=== PATIENT | female | born 1970 | race Two or more races ===

== ENCOUNTER 2020-05-01 16:34 | Emergency (ER) | payer MEDICARE, MEDICAID, SELFPAY ==
[2020-05-01 16:39] VITALS: BP 119/91; PULSE 99; RESP 16; TEMP 37.1; O2SAT 94; BMI 35.8
[2020-05-01 19:11] VITALS: BP 120/66; PULSE 110; RESP 18; TEMP 36.8; O2SAT 99
--- NOTE | 2020-05-01 19:48 | ED_ITS ---
HPI - Female Genitourinary General Chief complaint: Urogenital-Female Stated complaint: Burning with urination Time Seen by Provider: 05/01/20 19:11 Source: patient Mode of arrival: ambulatory History of Present Illness HPI Narrative: 49-year-old female here for vaginal pain with intercourse. Patient states she usually has a dry vagina secondary to no ovaries and uses lube however now the past several days has been having intercourse with a new partner who has had herpes in the past and now has itching burning pain in her vagina. States with sex does have slight bleeding. No vaginal bleeding after sex. Denies fevers or chills denies abdominal pain states of dysuria no rash noted MD elicited complaint: dysuria Severity scale (1-10): 3 Quality of pain: sharp Consistency: constant Vaginal discharge: none Vaginal bleeding: scant Urinary symptoms: Dysuria Exacerbating factors: urination Sexual activity: Yes Patient : No Related Data Home Medications Medication Instructions Recorded Confirmed clonazepam 1 mg tablet 1 mg PO BID 04/28/20 metformin 750 mg tablet,extended 750 mg PO DAILY 04/28/20 release 24 hr Previous Rx's Medication Instructions Recorded erythromycin 5 mg/gram (0.5 %) eye 0.5 inch OPHTHALMIC (EYE) QID 10 04/28/20 ointment Days #3.5 g Allergies Allergy/AdvReac Type Severity Reaction Status Date / Time fish derived [FISH] Allergy Intermediate INFLAMMATIO Verified 05/01/20 16:44 N latex [LATEX] Allergy Mild HIVES/RASH Verified 05/01/20 16:44 aspirin Allergy Unknown rash Verified 05/01/20 16:44 Beef Containing Products Allergy Unknown DIARRHEA/VO Verified 05/01/20 16:44 MITING amoxicillin AdvReac Unknown diarrhea Verified 05/01/20 16:44 Red Meats And Seafood Allergy Unknown inflammation Uncoded 03/06/20 00:00 and swelling Seafood AdvReac Unknown DE LEON, Uncoded 03/11/20 00:00 diarrhea Review of Systems Constitutional: Comments: Constitutional : No Weight loss, No Fever, No Chills, No Night Sweats, No Fatigue, No Malaise ENT/Mouth : No Hearing loss, No Ear Pain, No Nasal Congestion, No Sinus Pain, No Hoarseness, No sore throat, No Rhinorrhea, No Swallowing Difficulty Eyes: No Eye Pain, No Swelling, No Redness, No Foreign Body, No Discharge, No Vision Changes Cardiovascular : No Chest Pain, No SOB, No Dyspnea on Exertion, No Orthopnea, No Edema, No Palpitations Respiratory : No Cough, No Sputum, No Wheezing, No Smoke Exposure, No Dyspnea Gastrointestinal : No Nausea, No Vomiting, No Diarrhea, No Constipation, No abdominal Pain, No Hematochezia, No Melena Genitourinary : mild irregular bleeding with sex, positive Dysuria, No Urinary Frequency, No Hematuria, No Urinary Incontinence, No Urgency, No Flank Pain, No Urinary Flow Changes, No Hesitancy Musculoskeletal : No joint pain, No Myalgias, No Joint Swelling Skin : No Skin Lesions, No rash Neuro : No Weakness, No Numbness, No Paresthesias, No Loss of Consciousness, No Dizziness, No Headache Psych : No Anxiety/Panic, No Depression, No SI/HI/AH/VH, No Social Issues, Heme/Lymph: No Bruising, No Bleeding,No Lymphadenopathy Endocrine : No Polyuria, No Polydipsia, No Temperature Intolerance PMFSH Past Medical History Medical History Anxiety Depression Diabetes Fibromyalgia Surgical History Hx of appendectomy Hx of section Hx of cholecystectomy Family History Family History Father Diabetes mellitus Heart murmur Mother Diabetes mellitus HTN (hypertension) Glaucoma Social History Social History Advance Directives: No Advance Directives Information Provided: No Physical Exam Vital Signs and I&O and Narrative: Vital Signs and I&O: Vital Signs Temp 98.2 F 05/01/20 19:11 Pulse 110 H 05/01/20 19:11 Resp 18 05/01/20 19:11 BP 120/66 05/01/20 19:11 Pulse Ox 99 05/01/20 19:11 Intake & Output 05/01/20 05/01/20 05/02/20 06:59 18:59 06:59 Weight 94.602 kg Body Mass Index 35.8 Const: Other: Appearance: Alert. Oriented X3. No acute distress. Eyes: Pupils equal, round and reactive to light. ENT: Pharynx normal. Neck: Normal inspection. Neck supple. No lymph nodes noted. No crepitus CVS: Normal heart rate and rhythm. Pulses normal. Normal S1 and S2 Respiratory: No respiratory distress. Breath sounds normal. No Wheezing. No rales Abdomen: Soft and nontender. No rigidity. No distention. good BS x4 Skin: Skin warm and dry. Normal skin color. Normal skin turgor. Extremities: No lower extremity edema. No lower extremity edema. No Lacerations. No Rash Neuro: Oriented X 3. No motor deficit. No sensory deficit. Moving all extermities. No slurred speech. vaginal exam: female tech at bedside for exam. Noted to have 1 genital ulcer at 12:00 o'clock position inside vaginal vault. No. No abrasions MDM - Female Genitourinary MDM Narrative Medical decision making narrative: 49-year-old female vaginal lesion possibly herpes versus abrasion. Patient states will call back in about 48-72 hours for the results of herpes culture. No UTI. Will need follow-up as well as I counseled patient to restrain from having intercourse until symptoms resolve Lab Data Labs: Lab Results 05/01/20 Range/Units 19:25 Urine Color YELLOW Urine Appearance CLEAR Urine pH 7.0 (5.0-8.0) Ur Specific [place] 1.015 (1.005-1.025) Urine Protein NEG (NEG-TRACE) MG/DL Urine Glucose (UA) NEG (NEG) MG/DL Urine Ketones NEG (NEG) MG/DL Urine Blood NEG (NEG) Urine Nitrite NEG (NEG) Ur Leukocyte Esterase TRACE H (NEG) Urine RBC 0 (0) /HPF Urine WBC 0-2 (0-4) /HPF Ur Squamous Epith Cells 2+ /LPF Urine Bacteria TRACE /LPF Discharge Plan Discharge Clinical Impression: Ulcer of vagina Patient Disposition: Home, Self-Care Additional Instructions: Thank you for visiting the emergency department today. If your symptoms worsen or do not resolve completely please return to the emergency department immediately or call 911. if he have any questions please call your primary care physician Prescriptions: No Action erythromycin 5 mg/gram (0.5 %) ointment 0.5 inch ophthalmic (eye) QID 10 Days Qty: 3.5 RF: 0 Referrals: Mali Nova MD [Primary Care Provider] - 2 days
[2020-05-01 19:55] LABS: Glucose Urine UA NEG (NEG); Leukocyte Esterase Urine TRACE (NEG); Nitrite Urine NEG (NEG); Specific Gravity - Urine 1.015 (1.005-1.025); Urine Blood NEG (NEG); Urine Ketones NEG (NEG); Urine Protein NEG (NEG-TRACE)
[2020-05-01 19:56] LABS: Appearance Urine CLEAR; Color Urine YELLOW
[2020-05-01 20:01] LABS: Bacteria Urine TRACE /LPF; RBC Urine 0 /HPF (0); Squamous Epithelial Cell Urine 2+ /LPF; WBC Urine 0-2 /HPF (0-4)
== END 2020-05-01 20:50 | disposition home or self-care (01) ==
PROVIDERS: Emergency Provider Emergency Medicine; PCP Internal Medicine
DX: N76.5 Ulceration of vagina (principal); E11.9 Type 2 diabetes mellitus without complications; I10 Essential (primary) hypertension; Z79.84 Long term (current) use of oral hypoglycemic drugs
CPT/HCPCS: 81001; 87086; 87255; 99283; 99284

== ENCOUNTER 2020-05-25 20:25 | Emergency (ER) | payer OTHER, SELFPAY ==
[2020-05-25 20:28] VITALS: BP 125/72; PULSE 112; RESP 20; TEMP 36.8; O2SAT 96; BMI 35.6
--- NOTE | 2020-05-25 21:00 | XR_ITS ---
EXAMINATION: XR CHEST CLINICAL INFORMATION: Shortness of breath. COMPARISON: Multiple priors, most recent chest radiograph dated 11/10/2019. TECHNIQUE: Frontal view of the chest was obtained. FINDINGS: The lungs are clear. The cardiomediastinal silhouette is normal in size. There is no pleural effusion or pneumothorax. No acute osseous abnormality. XR/XR chest 1V IMPRESSION: No acute cardiopulmonary findings.
[2020-05-25] MEDS: guaiFEN/Codeine SF 200/20/10ML 10 ML LIQUID PO (21:09)
[2020-05-25 21:11] VITALS: BP 146/77; PULSE 91; RESP 18; TEMP 36.8; O2SAT 96
--- NOTE | 2020-05-25 21:17 | ED.ASTHMA ---
HPI - Asthma General Chief Complaint: Asthma Stated Complaint: ASTHMA Time Seen by Provider: 05/25/20 20:59 Source: patient Mode of arrival: ambulatory Limitations: no limitations History of Present Illness HPI Narrative: patient has history of asthma been coughing for last 1 week seen her primary care doctor who prescribed doxycycline, prednisone and Tesslon patient is still coughing and having sore throat now for last 2 days patient denies any fever MD complaint: shortness of breath Onset (ago): day(s) (7) Severity: moderate Asthma History: adult onset Treatments Prior to Arrival: inhaled bronchodilator Related Data Current Asthma Therapy: inhaled bronchodilator Home Medications Medication Instructions Recorded Confirmed clonazepam 1 mg tablet 1 mg PO BID 04/28/20 05/05/20 albuterol sulfate 90 mcg/actuation INHALATION 05/05/20 05/05/20 aerosol inhaler blood sugar diagnostic #10 ea 05/05/20 05/05/20 cetirizine 10 mg tablet 10 mg PO DAILY PRN 05/05/20 05/05/20 dulaglutide 1.5 mg/0.5 mL 3 mg SUBCUT QWEEK 05/05/20 05/05/20 subcutaneous pen injector duloxetine 30 mg capsule,delayed 30 mg PO BID 05/05/20 05/05/20 release ezetimibe 10 mg tablet 10 mg PO DAILY 05/05/20 05/05/20 famotidine 40 mg tablet 40 mg PO DAILY 05/05/20 05/05/20 gabapentin 400 mg capsule 400 mg PO TID 05/05/20 05/05/20 lancets 28 gauge #100 ea 05/05/20 05/05/20 pen needle, diabetic 32 gauge x #50 ea 05/05/20 05/05/20/ ropinirole 0.5 mg tablet 0.5 mg PO BEDTIME 05/05/20 05/05/20 tizanidine 4 mg tablet 6 mg PO BEDTIME 05/05/20 05/05/20 trazodone 150 mg tablet 150 mg PO BEDTIME 05/05/20 05/05/20 Previous Rx's Medication Instructions Recorded doxycycline hyclate 100 mg tablet 100 mg PO BID #14 tab 05/05/20 prednisone 10 mg tablet See Taper PO .COMPLEX #45 tab 05/05/20 dulaglutide 1.5 mg/0.5 mL 1.5 mg SUBCUT QWEEK 90 Days #6.5 ml 05/16/20 subcutaneous pen injector metformin 750 mg tablet,extended 750 mg PO BID 90 Days #180 tab 05/16/20 release 24 hr cholecalciferol (vitamin D3) 25 25 mcg PO DAILY #30 cap 05/22/20 mcg (1,000 unit) tablet docusate sodium 100 mg capsule 100 mg PO BID #60 cap 05/22/20 albuterol sulfate [ProAir HFA] 2 puff INHALATION Q6H PRN #18 g 05/25/20 azithromycin [Zithromax] 250 mg PO DAILY 4 Days #4 tab 05/25/20 codeine-guaifenesin [Guaifenesin 10 ml PO Q6H PRN #237 ml 05/25/20 AC] Allergies Allergy/AdvReac Type Severity Reaction Status Date / Time fish derived [FISH] Allergy Intermediate INFLAMMATIO Verified 05/05/20 11:49 N latex [LATEX] Allergy Mild HIVES/RASH Verified 05/05/20 11:49 aspirin Allergy Unknown rash Verified 05/05/20 11:49 Beef Containing Products Allergy Unknown DIARRHEA/VO Verified 05/05/20 11:49 MITING amoxicillin AdvReac Unknown diarrhea Verified 05/05/20 11:49 Red Meats And Seafood Allergy Unknown inflammation Uncoded 05/05/20 11:49 and swelling Seafood AdvReac Unknown DE LEON, Uncoded 05/05/20 11:49 diarrhea Review of Systems Review of Systems: REVIEW OF SYSTEMS: Pertinent positives and negatives are stated above in the history. GEN: no fevers, chills, fatigue HEENT: no nasal congestion, sore throat, ear pain NEURO: no headache, dizziness, focal weakness PULM: dry cough+ CV: no chest pain, palpitations, LE edema ABD: no abdominal pain, nausea, vomiting, diarrhea : no dysuria, urgency, frequency SKIN: no rash ROS otherwise negative x 10 PMFSH Past Medical History Medical History Anxiety Asthma Depression Diabetes Diabetes type 2, uncontrolled Fibromyalgia Neuropathy Restless leg syndrome Vertigo Surgical History Hx of appendectomy Hx of section Hx of cholecystectomy Family History Family History Father Diabetes mellitus Heart murmur Mother Diabetes mellitus HTN (hypertension) Glaucoma Social History Social History Alcohol intake: never Smoking Status: Current every day smoker Use of substances other than those prescribed or required for medical reasons: No Advance Directives: No Physical Exam Vital Signs: Vital Signs: Vital Signs Temp Pulse Resp BP Pulse Ox 05/25/20 22:46 98 F 92 18 159/90 H 96 05/25/20 21:11 98.3 F 91 18 146/77 H 96 05/25/20 20:28 98.2 F 112 H 20 125/72 96 Body Mass Index 35.6 VITAL SIGNS: Reviewed. GENERAL: Well developed, well nourished, in no acute distress. HEAD: Normocephalic/atraumatic, EYES: PERRLA No pallor/icterus noted EARS: Ext canals without abnormality NOSE: Nares patent bilateral OROPHARYNX: Oral mucosa moist no oral lesions, Posterior pharynx erythematous without any exudate NECK: Supple, no adenopathy LUNGS: prolong expiration. No adventitious sounds or accessory muscle use CARDIOVASCULAR: Regular rate and rhythm without noted murmurs, no JVD or lower extremity edema. ABDOMEN: Soft, non-tender, non-distended with bowel sounds. No rigidity. No guarding. No palpable masses or hernias noted MUSCULOSKELETAL: No tenderness, deformities, EXTREMITIES: No cyanosis or edema. SKIN: no rashes, ulcerations, jaundice, pallor, or petechiae NEUROLOGIC: Alert and oriented x 3. Strength and sensation to light touch were grossly intact Course Course Course Narrative: patient with dry cough likely bronchitis secondary to asthma COVID is negative chest x-ray negative will give her a course of z pack, cough syrup advised to continue inhaler MDM - Asthma Lab Data Labs: Lab Results 05/25/20 Range/Units 21:09 Coronavirus (PCR) NEGATIVE (Negative) Discharge Plan Discharge Clinical Impression: Acute asthmatic bronchitis Patient Disposition: Home, Self-Care Instructions: Acute Bronchitis (ED) Prescriptions: New azithromycin [Zithromax] 250 mg tablet 250 mg PO DAILY 4 Days Qty: 4 RF: 0 codeine-guaifenesin [Guaifenesin AC] 10-100 mg/5 mL liquid 10 ml PO Q6H PRN (Reason: cough) Qty: 237 RF: 0 albuterol sulfate [ProAir HFA] 90 mcg/actuation HFA aerosol inhaler 2 puff inhalation Q6H PRN (Reason: shortness of breath or wheezing) Qty: 18 RF: 0 No Action metformin 750 mg tablet extended release 24 hr 750 mg PO BID 90 Days Qty: 180 RF: 1 Trulicity 1.5 mg/0.5 mL pen injector 1.5 mg subcut QWEEK 90 Days Qty: 6.5 RF: 1 docusate sodium [DOK] 100 mg capsule 100 mg PO BID Qty: 60 RF: 5 cholecalciferol (vitamin D3) 25 mcg (1,000 unit) tablet 25 mcg PO DAILY Qty: 30 RF: 5 clonazepam 1 mg tablet 1 mg PO BID RF: 0 tizanidine 4 mg tablet 6 mg PO BEDTIME RF: 0 Trulicity 1.5 mg/0.5 mL pen injector 3 mg subcut QWEEK RF: 0 (DME) pen needle, diabetic 32 gauge x 5/32 needle See Rx Instructions ea subcut .MEDSUPPLY Qty: 50 RF: 0 duloxetine 30 mg capsule,delayed release(DR/EC) 30 mg PO BID RF: 0 ezetimibe 10 mg tablet 10 mg PO DAILY RF: 0 ropinirole 0.5 mg tablet 0.5 mg PO BEDTIME RF: 0 gabapentin 400 mg capsule 400 mg PO TID RF: 0 cetirizine 10 mg tablet 10 mg PO DAILY PRNRF: 0 (DME) lancets 28 gauge misc See Rx Instructions ea topical QID Qty: 100 RF: 0 (DME) FreeStyle Lite Strips Strip See Rx Instructions ea Not Applicable QID Qty: 10 RF: 0 trazodone 150 mg tablet 150 mg PO BEDTIME RF: 0 albuterol sulfate 90 mcg/actuation HFA aerosol inhaler inhalation RF: 0 famotidine 40 mg tablet 40 mg PO DAILY RF: 0 doxycycline hyclate 100 mg tablet 100 mg PO BID Qty: 14 RF: 0 prednisone 10 mg tablet See Taper mg PO .COMPLEX Qty: 45 RF: 0 Interventions: ED Discharge Assessment Last Done: 05/25/20 23:10 Discharge Date/Time: 05/25/20 23:10
[2020-05-25 22:14] LABS: SARS COV2 PCR INHOUSE NEGATIVE (Negative)
[2020-05-25 22:46] VITALS: BP 159/90; PULSE 92; RESP 18; TEMP 36.6; O2SAT 96
[2020-05-25] MEDS: Albuterol Sulfate 90 MCG 8 GM INHALER 4 PUFF INHALE (22:48)
[2020-05-25] MEDS: Azithromycin 500 MG TABLET PO (22:53)
== END 2020-05-25 23:10 | disposition home or self-care (01) ==
PROVIDERS: Emergency Provider Internal Medicine; PCP Internal Medicine
DX: J20.9 Acute bronchitis, unspecified (principal); Z20.828 Contact with and (suspected) exposure to other viral communicable diseases; Z79.899 Other long term (current) drug therapy; F17.200 Nicotine dependence, unspecified, uncomplicated; Z71.6 Tobacco abuse counseling
CPT/HCPCS: 71045; 87071; 87880; 99283; 99284; U0003

== ENCOUNTER → 2020-05-28 10:04 | Outpatient (BNVA) | payer OTHER, SELFPAY | PROVIDERS: PCP Internal Medicine; Referring Provider Internal Medicine; Visit Provider Internal Medicine Endocrinology, Diabetes & Metabolism | DX: E11.65 Type 2 diabetes mellitus with hyperglycemia (principal); E66.9 Obesity, unspecified; E78.5 Hyperlipidemia, unspecified; E04.2 Nontoxic multinodular goiter; Z79.4 Long term (current) use of insulin; Z79.899 Other long term (current) drug therapy | CPT/HCPCS: 82947; 99212 ==

== ENCOUNTER 2020-05-29 09:02 | Outpatient (REF) | payer OTHER, SELFPAY ==
[2020-05-29 10:46] LABS: Alanine Aminotransferase 25 U/L (0-31); Albumin Level 4.3 g/dL (3.5-5.0); Alkaline Phosphatase 126 U/L (39-117); Anion Gap 11 (12-20); Aspartate Amino Transferase 18 U/L (5-31); Bilirubin Total 0.4 mg/dL (0.0-1.0); Blood Urea Nitrogen 5 mg/dL (9-16); Calcium 9.1 mg/dL (8.4-10.2); Carbon Dioxide 31 mmol/L (22-29); Chloride 104 mmol/L (96-108); Cholesterol 155 mg/dL; Estimated Glomerular Filt Rate > 60; Glucose Fasting 75 mg/dL (60-99); HDL Cholesterol 47 mg/dL; LDL Cholesterol Calculated 80 mg/dl; Potassium 4.4 mmol/l (3.3-5.1); Sodium 142 mmol/L (135-145); Total Protein 6.5 g/dL (6.5-8.0); Triglycerides 142 mg/dL
[2020-05-29 11:10] LABS: Creatinine Urine 65.13 mg/dL; Free T4 (Free Thyroxine) 0.89 ng/dL (0.71-1.85); Microalbum/Creatinine Ratio Ur 39.9 ug/mg cr; Thyroid Stimulating Hormone 0.99 mIU/mL (0.32-4.0)
[2020-05-29 11:16] LABS: Vitamin B12 170 pg/mL (200-900)
[2020-05-30 07:47] LABS: LDL Cholesterol Direct 85 mg/dL (<100)
== END 2020-05-29 09:03 | disposition home or self-care (01) ==
LOC: HO.LAB 09:02
PROVIDERS: Nurse Practitioner Family; PCP Internal Medicine; Visit Provider Internal Medicine Endocrinology, Diabetes & Metabolism
DX: E11.65 Type 2 diabetes mellitus with hyperglycemia (principal); R09.81 Nasal congestion; Z20.828 Contact with and (suspected) exposure to other viral communicable diseases
CPT/HCPCS: 80053; 80061; 82043; 82607; 83721; 84439; 84443; U0003

== ENCOUNTER 2020-05-30 10:54 | Outpatient (REF) | payer OTHER, SELFPAY ==
[2020-05-30 16:29] LABS: CT PCR NOT DETECTED (Not Detect.); NG PCR NOT DETECTED (Not Detect.)
[2020-06-02 09:41] LABS: BV Int Neg Control Negative (Negative); BV Int Pos Control Positive (Positive)
== END 2020-05-30 10:55 | disposition home or self-care (01) ==
LOC: HO.LAB 10:54
PROVIDERS: Visit Provider Obstetrics & Gynecology
DX: Z01.419 Encounter for gynecological examination (general) (routine) without abnormal findings (principal); E11.9 Type 2 diabetes mellitus without complications; F17.200 Nicotine dependence, unspecified, uncomplicated; J40 Bronchitis, not specified as acute or chronic; M79.7 Fibromyalgia; Z11.3 Encounter for screening for infections with a predominantly sexual mode of transmission; Z79.4 Long term (current) use of insulin
CPT/HCPCS: 87480; 87491; 87510; 87591; 87660

== ENCOUNTER 2020-06-23 12:49 | Outpatient (REF) | payer OTHER, SELFPAY | END 2020-06-23 12:50 | disposition home or self-care (01) | LOC: HO.LAB 12:49 | PROVIDERS: Visit Provider Hospitalist | DX: Z12.31 Encounter for screening mammogram for malignant neoplasm of breast (principal); R30.0 Dysuria | CPT/HCPCS: 87086 ==

== ENCOUNTER 2020-07-04 16:47 | Outpatient (REF) | payer OTHER, SELFPAY | END 2020-07-04 16:48 | disposition home or self-care (01) | LOC: HO.LAB 16:47 | PROVIDERS: Visit Provider Hospitalist | DX: Z20.828 Contact with and (suspected) exposure to other viral communicable diseases (principal) | CPT/HCPCS: U0003 ==

== ENCOUNTER 2020-07-08 09:40 | Outpatient (REF) | payer OTHER, SELFPAY ==
--- NOTE | 2020-07-08 09:43 | MM_ITS ---
EXAMINATION: MM SCREENING DIGITAL BREAST TOMOSYNTHESIS, BILATERAL CLINICAL INFORMATION: Screening. Asymptomatic. The lifetime risk of breast cancer based on the Tyrer-Cuzick Model is 6%. COMPARISON: Mammography: 12/16/2018, 11/04/2017, 08/16/2014 TECHNIQUE: Digital breast tomosynthesis is performed in both the craniocaudal and mediolateral oblique views along with computer-aided detection (CAD). Synthesized 2D images are generated from the tomosynthesis. FINDINGS: There are scattered areas of fibroglandular density (ACR BI-RADS breast composition Category b). There are no significant masses, abnormal calcifications, or other abnormalities. The axilla and skin contours are unremarkable. MM/MM tomosynthesis screening BI IMPRESSION: No mammographic evidence of malignancy. ASSESSMENT: BI-RADS 1: Negative RECOMMENDATION: Routine annual mammography screening. This patient's information was entered into a reminder system with a target due date for their next mammogram.
== END 2020-07-08 09:41 | disposition home or self-care (01) ==
LOC: HO.MAMMO 09:40
PROVIDERS: PCP Internal Medicine; Visit Provider Obstetrics & Gynecology
DX: Z12.31 Encounter for screening mammogram for malignant neoplasm of breast (principal)
CPT/HCPCS: 77063; 77067

== ENCOUNTER 2020-11-21 18:19 | Emergency (ER) | payer OTHER, SELFPAY ==
--- NOTE | ~2020-11-21 | CT_ITS ---
EXAMINATION: CT ABDOMEN AND PELVIS WITHOUT CONTRAST CLINICAL INFORMATION: Right-sided flank pain COMPARISON: CT scan abdomen pelvis 11/10/2019 TECHNIQUE: Multidetector volumetric imaging was performed from the superior aspect of the liver through the pubic symphysis. Sagittal and coronal reformatted images were obtained on the technologist's workstation. This CT examination was performed using dose optimization techniques as appropriate, variously including the following: *Automated exposure control *Adjustment of mA and/or kV according to patient size (this includes techniques or standardized protocols for targeted exams where dose is matched to indication/reason for exam; i.e. extremities or head) *Use of iterative reconstruction technique DLP: 824 mGy-cm FINDINGS: LUNG BASES: The visualized lung bases are unremarkable. LIVER, GALLBLADDER, AND BILIARY TREE: The liver is normal in size, shape, and attenuation. No focal hepatic lesion or biliary ductal dilatation is present. Status post cholecystectomy PANCREAS: Unremarkable. SPLEEN: Unremarkable. ADRENAL GLANDS: Unremarkable. KIDNEYS AND URETERS: The kidneys are normal in size, shape, and attenuation. No hydronephrosis, hydroureter, or calculi seen. No perinephric stranding. BLADDER: Unremarkable. GASTROINTESTINAL TRACT: No acute change of bowel. Cecum lies on a long mesentery and is looped up into the left midabdomen. There is no cecal volvulus. There is no mesenteric twist. There are scattered diverticula throughout the colon. There is no diverticulitis. There is no bowel wall thickening /edema. There is no bowel obstruction. There is a large volume of stool in the colon. The appendix is nonvisualized . There is fecal material in the distal small bowel loops which can be due to slow transit versus an incompetent ileocecal valve. The stomach is normal. There is no hiatal hernia. ABDOMINAL WALL: No significant hernia is appreciated. LYMPH NODES: Normal. VASCULAR: Unremarkable. PELVIC VISCERA: Uterus is anteverted. Calcified fibroids in the uterus. There is no adnexal abnormality. OSSEOUS STRUCTURES: Unremarkable. CT/CT abdomen pelvis wo con IMPRESSION: No acute abnormality CT scan abdomen and pelvis.
[2020-11-21 19:42] VITALS: BP 137/65; PULSE 95; RESP 18; TEMP 36.9; O2SAT 95; BMI 36.7
[2020-11-21 21:06] LABS: MANUAL DIFF FLAG NO
[2020-11-21 21:14] LABS: Basophils Absolute Auto 0.1 X10*3/uL (0.0-0.2); Basophils Percent Auto 0.6 % (0-2); Eosinophils Absolute Auto 0.1 X10*3/uL (0.0-0.4); Eosinophils Percent Auto 1.3 % (0-4); Hematocrit 43.5 % (37-47); Hemoglobin 14.8 g/dl (12.0-16.0); Imm Gran Abs Auto 0.02 X10*3/uL (0.00-0.03); Imm Gran Pct Auto 0.2 % (0.0-0.4); Lymphocytes Percent Auto 38.4 % (20-40); Mean Platelet Volume 9.8 fL (9.4-12.3); Monocytes Absolute Auto 0.7 X10*3/uL (0.1-1.2); Monocytes Percent Auto 6.4 % (2-11); Neutrophils Absolute Auto 5.5 X10*3/uL (2.0-8.3); Neutrophils Percent Auto 53.1 % (45-73); Platelet Count 299 X10*3/uL (160-400); Red Blood Count 4.78 X10*6/uL (4.20-5.50); Red Cell Distribution Width 12.2 % (11.0-16.0); White Blood Count 10.4 X10*3/uL (4.8-10.8)
[2020-11-21 21:15] LABS: Glucose Urine UA NEG (NEG); Leukocyte Esterase Urine NEG (NEG); Nitrite Urine NEG (NEG); PH 8.5 (5.0-8.0); Specific Gravity - Urine 1.015 (1.005-1.025); Urine Blood NEG (NEG); Urine Ketones NEG (NEG); Urine Protein TRACE MG/DL (NEG-TRACE)
[2020-11-21 21:18] LABS: Appearance Urine HAZY; Color Urine YELLOW
[2020-11-21 21:32] LABS: Alanine Aminotransferase 27 U/L (0-31); Albumin Level 4.6 g/dL (3.5-5.0); Alkaline Phosphatase 144 U/L (39-117); Anion Gap 15 (12-20); Aspartate Amino Transferase 22 U/L (5-31); Bilirubin Total 0.5 mg/dL (0.0-1.0); Blood Urea Nitrogen 13 mg/dL (9-16); Calcium 9.7 mg/dL (8.4-10.2); Carbon Dioxide 29 mmol/L (22-29); Chloride 101 mmol/L (96-108); Creatinine Clr Calc Pharmacy 92.8; Estimated Glomerular Filt Rate > 60; Glucose Random 102 mg/dL (60-115); Lipase 28 U/L (8-78); Potassium 4.3 mmol/L (3.3-5.1); Sodium 141 mmol/L (135-145)
[2020-11-21] MEDS: HYDROcodone Bit/Acetam 5/325 TABLET 1 TAB PO (23:13)
[2020-11-21] MEDS: Ibuprofen 600 MG TABLET PO (23:13)
--- NOTE | 2020-11-21 23:24 | ED.ABDPAIN ---
HPI - Abdominal Pain General Chief Complaint: Abdominal Pain Stated Complaint: low back pain Time Seen by Provider: 11/21/20 22:03 Source: patient Mode of arrival: ambulatory Limitations: no limitations History of Present Illness HPI narrative: 50 y/o female with history of fibromyalgia, DM2 on insulin, depression, restless leg syndrome, kidney stones, GERD presents to the ER with 4 days of right sided flank pain. She states the pain was gradual but is now constant. She reports increased urinary frequency but admits to drinking a lot of water to help with her diabetes. She denies fever, chills, N/V/D, hematuria or dysuria. She states the pain radiates from her right flank around to her right inguinal area. It is worse with movement and when she touches it. MD elicited complaint: flank pain Pertinent past history: kidney stones Onset (ago): day(s) (4) Pain Consistency: constant Location: R flank Severity: moderate Quality: stabbing and aching Radiation: RLQ Migration to: no migration Exacerbating factors: movement Relieving factors: nothing Associated symptoms: nausea Related Data Home Medications Medication Instructions Recorded Confirmed clonazepam 1 mg tablet 1 mg PO BID 04/28/20 10/06/20 albuterol sulfate 90 mcg/actuation INHALATION 05/05/20 10/06/20 aerosol inhaler duloxetine 30 mg capsule,delayed 30 mg PO BID 05/05/20 10/06/20 release gabapentin 400 mg capsule 400 mg PO TID 05/05/20 10/06/20 pen needle, diabetic 32 gauge x #50 ea 05/05/20 10/06/20 tizanidine 4 mg tablet 6 mg PO BEDTIME 05/05/20 10/06/20 trazodone 150 mg tablet 150 mg PO BEDTIME 05/05/20 10/06/20 flu vac [id number] 36mos up(PF) ml IM 06/05/20 10/06/20 ibuprofen 800 mg tablet 800 mg PO BID 06/05/20 10/06/20 ipratropium 0.5 mg-albuterol 3 mg 3 ml INHALATION Q6H PRN 06/05/20 10/06/20 (2.5 mg base)/3 mL nebulization soln ondansetron 4 mg disintegrating 4 mg PO Q8H PRN 06/05/20 10/06/20 tablet Previous Rx's Medication Instructions Recorded albuterol sulfate [ProAir HFA] 2 puff INHALATION Q6H PRN #18 g 05/25/20 insulin degludec 100 unit/mL (3 18 unit SUBCUT BEDTIME 90 Days #30 05/28/20 mL) subcutaneous pen ml nicotine 21 mg/24 hr daily 1 patch TRANSDERMAL DAILY #28 ea 05/30/20 transdermal patch loperamide 2 mg tablet 2 mg PO DAILY PRN #20 tab 06/05/20 fluticasone propionate 50 1 spray INTRANASAL DAILY #16 cap 06/20/20 mcg/actuation nasal spray,suspension fluconazole 150 mg tablet 150 mg PO DAILY 3 Days #3 tab 06/23/20 valacyclovir 1 gram tablet 1,000 mg PO TID 10 Days #30 tab 06/23/20 pen needle, diabetic 32 gauge x #50 ea 06/24/20 dulaglutide 1.5 mg/0.5 mL 1.5 mg SUBCUT QWEEK 90 Days #6.5 ml 08/19/20 subcutaneous pen injector blood sugar diagnostic #300 ea 09/24/20 lancets 28 gauge #300 ea 09/24/20 mirabegron 25 mg tablet,extended 25 mg PO DAILY #30 tab 10/06/20 release 24 hr ezetimibe 10 mg tablet 10 mg PO DAILY #90 cap 10/20/20 metformin 750 mg tablet,extended 750 mg PO BID 90 Days #180 tab 10/21/20 release 24 hr cetirizine 10 mg tablet 10 mg PO DAILY PRN #90 cap 11/20/20 cholecalciferol (vitamin D3) 25 25 mcg PO DAILY #30 cap 11/20/20 mcg (1,000 unit) tablet cyanocobalamin (vitamin B-12) 500 500 mcg SUBLINGUAL DAILY #30 cap 11/20/20 mcg disintegrating tablet,sublingual famotidine 40 mg tablet 40 mg PO DAILY #30 cap 11/20/20 ropinirole 0.5 mg tablet 0.5 mg PO BEDTIME #90 cap 11/20/20 cyclobenzaprine 10 mg PO TID PRN #10 tab 11/21/20 docusate sodium 100 mg capsule 100 mg PO BID #60 cap 11/21/20 ibuprofen 600 mg PO Q8H PRN #14 tab 04/30/21 lidocaine [Lidoderm] 1 patch TOPICAL DAILY #15 ea 11/21/20 Allergies Allergy/AdvReac Type Severity Reaction Status Date / Time latex [LATEX] Allergy Mild HIVES/RASH Verified 11/21/20 19:42 aspirin Allergy Unknown rash Verified 11/21/20 19:42 amoxicillin AdvReac Unknown diarrhea Verified 11/21/20 19:42 Beef Containing Products AdvReac Unknown DIARRHEA/VO Verified 11/21/20 19:42 MITING [employer] Allergy Unknown inflammation Uncoded 07/04/20 16:38 and swelling Review of Systems Review of Systems Constitutional: No Fever, No Chills ENT/Mouth: No sore throat, No Rhinorrhea, No Swallowing Difficulty Cardiovascular: No Chest Pain, No SOB, No Orthopnea, No Edema Respiratory: No Cough, No Sputum, No Wheezing, No dyspnea Gastrointestinal: + Nausea, No Vomiting, No Diarrhea, No abdominal Pain, No Hematochezia, No Melena Genitourinary: No Dysuria, + Urinary Frequency, No Hematuria Musculoskeletal: No joint pain, No Myalgias Skin: No Skin Lesions, No rash Neuro: No Weakness, No Numbness, No Dizziness, + Headache Psych: No Anxiety/Panic, No Depression Heme/Lymph: No Bruising, No Lymphadenopathy Endocrine: + Polyuria, + Polydipsia Physical Exam Vital Signs: Vital Signs: Last Vital Signs Temp 98.5 F 11/21/20 19:42 Pulse 95 11/21/20 19:42 Resp 18 11/21/20 19:42 BP 137/65 11/21/20 19:42 Pulse Ox 95 11/21/20 19:42 Body Mass Index 36.7 Appearance: Alert. Oriented X3. No acute distress. Eyes: Pupils equal, round and reactive to light. ENT: Pharynx normal. Neck: Normal inspection. Neck supple. CVS: Normal heart rate and rhythm. Pulses normal. Respiratory: No respiratory distress. Breath sounds normal. Abdomen: Obese, Soft with mild RLQ tennderness, no rebound or guarding. +BS x4, +CVA tenderness on the right. Skin: Skin warm and dry. Normal skin color. Normal skin turgor. No rashes. Extremities: No lower extremity edema. Neuro: Oriented X 3. No motor deficit. No sensory deficit. Course Course Course Narrative: 50 yo female presenting with right sided flank pain x4 days. Tender to touch. Concern for possible kidney stone vs pyelonephritis vs muscular pain. Will get UA, labs and CT scan for futher assessment. Reevaluation(s) Reevaluation #1: UA is unremarkable. Labs are normal. CT scan only showing large stool burden. Results d/w patient. Will treat for MSK back pain and have her follow up with PCP next week. Stable for discharge. MDM - Abdominal Pain Lab Data Result diagrams: 11/21/20 21:11/21/20 21:01 Labs: Lab Results 11/21/20 11/21/20 11/21/20 Range/Units 21:01 21: 21:01 WBC 10.4 (4.8-10.8) X10*3/uL RBC 4.78 (4.20-5.50) X10*6/uL Hgb 14.8 (12.0-16.0) g/dl Hct 43.5 (37-47) % MCV 91.0 (80-98) fL MCH 31.0 (27.0-33.0) pg MCHC 34.0 (31.0-35.0) g/dl RDW 12.2 (11.0-16.0) % Plt Count 299 (160-400) X10*3/uL MPV 9.8 (9.4-12.3) fL Immature Gran % (Auto) 0.2 (0.0-0.4) % Neut % (Auto) 53.1 (45-73) % Lymph % (Auto) 38.4 (20-40) % Adams % (Auto) 6.4 (2-11) % Eos % (Auto) 1.3 (0-4) % Baso % (Auto) 0.6 (0-2) % Lymph # (Auto) 4.0 (1.2-4.9) X10*3/uL Adams # (Auto) 0.7 (0.1-1.2) X10*3/uL Eos # (Auto) 0.1 (0.0-0.4) X10*3/uL Baso # (Auto) 0.1 (0.0-0.2) X10*3/uL Abs Immat Gran (auto) 0.02 (0.00-0.03) X10*3/uL Absolute Neuts (auto) 5.5 (2.0-8.3) X10*3/uL Absolute Nucleated RBC 0.000 (0.0-0.012) X10*3/uL Nucleated RBC % (auto) 0.0 (0.0-0.2) /100WBC Hold Blue Top SEE NOTE Sodium 141 (135-145) mmol/L Potassium 4.3 (3.3-5.1) mmol/L Chloride 101 (96-108) mmol/L Carbon Dioxide 29 (22-29) mmol/L Anion Gap 15 (12-20) BUN 13 D (9-16) mg/dL Creatinine 0.82 (0.5-1.4) mg/dL Estim Creat Clear Calc 92.8 Estimated GFR > 60 Random Glucose 102 (60-115) mg/dL Calcium 9.7 D (8.4-10.2) mg/dL Total Bilirubin 0.5 (0.0-1.0) mg/dL AST 22 (5-31) U/L ALT 27 (0-31) U/L Alkaline Phosphatase 144 H (39-117) U/L Total Protein 7.0 (6.5-8.0) g/dL Albumin 4.6 (3.5-5.0) g/dL Lipase 28 (8-78) U/L Urine Color Urine Appearance Urine pH (5.0-8.0) Ur Specific Conklin (1.005-1.025) Urine Protein (NEG-TRACE) MG/DL Urine Glucose (UA) (NEG) MG/DL Urine Ketones (NEG) MG/DL Urine Blood (NEG) Urine Nitrite (NEG) Ur Leukocyte Esterase (NEG) 11/21/20 Range/Units 21:01 WBC (4.8-10.8) X10*3/uL RBC (4.20-5.50) X10*6/uL Hgb (12.0-16.0) g/dl Hct (37-47) % MCV (80-98) fL MCH (27.0-33.0) pg MCHC (31.0-35.0) g/dl RDW (11.0-16.0) % Plt Count (160-400) X10*3/uL MPV (9.4-12.3) fL Immature Gran % (Auto) (0.0-0.4) % Neut % (Auto) (45-73) % Lymph % (Auto) (20-40) % Adams % (Auto) (2-11) % Eos % (Auto) (0-4) % Baso % (Auto) (0-2) % Lymph # (Auto) (1.2-4.9) X10*3/uL Adams # (Auto) (0.1-1.2) X10*3/uL Eos # (Auto) (0.0-0.4) X10*3/uL Baso # (Auto) (0.0-0.2) X10*3/uL Abs Immat Gran (auto) (0.00-0.03) X10*3/uL Absolute Neuts (auto) (2.0-8.3) X10*3/uL Absolute Nucleated RBC (0.0-0.012) X10*3/uL Nucleated RBC % (auto) (0.0-0.2) /100WBC Hold Blue Top Sodium (135-145) mmol/L Potassium (3.3-5.1) mmol/L Chloride (96-108) mmol/L Carbon Dioxide (22-29) mmol/L Anion Gap (12-20) BUN (9-16) mg/dL Creatinine (0.5-1.4) mg/dL Estim Creat Clear Calc Estimated GFR Random Glucose (60-115) mg/dL Calcium (8.4-10.2) mg/dL Total Bilirubin (0.0-1.0) mg/dL AST (5-31) U/L ALT (0-31) U/L Alkaline Phosphatase (39-117) U/L Total Protein (6.5-8.0) g/dL Albumin (3.5-5.0) g/dL Lipase (8-78) U/L Urine Color YELLOW Urine Appearance HAZY Urine pH 8.5 H (5.0-8.0) Ur Specific Conklin 1.015 (1.005-1.025) Urine Protein TRACE (NEG-TRACE) MG/DL Urine Glucose (UA) NEG (NEG) MG/DL Urine Ketones NEG (NEG) MG/DL Urine Blood NEG (NEG) Urine Nitrite NEG (NEG) Ur Leukocyte Esterase NEG (NEG) Critical Care Time Critical Care Time Critical Care Time: No Discharge Plan Discharge Clinical Impression: Constipation Qualifiers: Constipation type: unspecified constipation type Qualified Code(s): K59.00 - Constipation, unspecified Back pain Qualifiers: Back pain location: thoracic back pain Chronicity: acute Back pain laterality: right Qualified Code(s): M54.6 - Pain in thoracic spine Patient Disposition: Home, Self-Care Instructions: Constipation (ED), Flank Pain (ED) Additional Instructions: Your lab workup today was unremarkable. Your urine test did not show any signs of infection. Your CT scan showed a large amount of stool in your colon. Recommend starting Miralax 17 grams once per day. Your back pain may be muscular in nature. No bending, lifting or twisting. Use ice several times per day for 20 minutes at a time for the next 48 hours and then change to heat. Take medications as prescribed to help with pain and discomfort. Follow up with your Primary Care Doctor this week. If your pain worsens or if you have any new or concerning symptoms come back to the ER for further evaluation. Prescriptions: New cyclobenzaprine 10 mg tablet 10 mg PO TID PRN (Reason: muscle spasm) Qty: 10 RF: 0 ibuprofen 600 mg tablet 600 mg PO Q8H PRN (Reason: pain) Qty: 14 RF: 0 lidocaine [Lidoderm] 5 % adhesive patch,medicated 1 patch topical DAILY Qty: 15 RF: 0 No Action fluticasone propionate 50 mcg/actuation spray,suspension 1 spray intranasal DAILY Qty: 16 RF: 6 (DME) pen needle, diabetic [BD Vanessa 2nd Gen Pen Needle] 32 gauge x 5/32 needle See Rx Instructions .MEDSUPPLY Qty: 50 RF: 4 Trulicity 1.5 mg/0.5 mL pen injector 1.5 mg subcut QWEEK 90 Days Qty: 6.5 RF: 1 (DME) blood sugar diagnostic Strip See Rx Instructions ea Not Applicable QID Qty: 300 RF: 3 (DME) lancets 28 gauge misc See Rx Instructions ea topical QID Qty: 300 RF: 3 ezetimibe 10 mg tablet 10 mg PO DAILY Qty: 90 RF: 2 metformin 750 mg tablet extended release 24 hr 750 mg PO BID 90 Days Qty: 180 RF: 1 cyanocobalamin (vitamin B-12) 500 mcg tablet,disintegrating 500 mcg sublingual DAILY Qty: 30 RF: 11 cetirizine 10 mg tablet 10 mg PO DAILY PRN (Reason: for allergies) Qty: 90 RF: 0 cholecalciferol (vitamin D3) 25 mcg (1,000 unit) tablet 25 mcg PO DAILY Qty: 30 RF: 5 famotidine 40 mg tablet 40 mg PO DAILY Qty: 30 RF: 6 ropinirole 0.5 mg tablet 0.5 mg PO BEDTIME Qty: 90 RF: 0 docusate sodium [Stool Softener] 100 mg capsule 100 mg PO BID Qty: 60 RF: 5 albuterol sulfate [ProAir HFA] 90 mcg/actuation HFA aerosol inhaler 2 puff inhalation Q6H PRN (Reason: shortness of breath or wheezing) Qty: 18 RF: 0 clonazepam 1 mg tablet 1 mg PO BID RF: 0 fluconazole 150 mg tablet 150 mg PO DAILY 3 Days Qty: 3 RF: 0 valacyclovir [Valtrex] 1 gram tablet 1,000 mg PO TID 10 Days Qty: 30 RF: 0 Myrbetriq 25 mg tablet extended release 24 hr 25 mg PO DAILY Qty: 30 RF: 0 Afluria Qd 2019-(3yr up)(PF) 60 mcg (15 mcg x 4)/0.5 mL syringe IM RF: 0 ibuprofen 800 mg tablet 800 mg PO BID RF: 0 ipratropium-albuterol 0.5 mg-3 mg(2.5 mg base)/3 mL solution for nebulization 3 ml inhalation Q6H PRN (Reason: muscle spasm) RF: 0 ondansetron 4 mg tablet,disintegrating 4 mg PO Q8H PRN (Reason: nausea/vomiting) RF: 0 loperamide 2 mg tablet 2 mg PO DAILY PRN (Reason: loose stool) Qty: 20 RF: 0 tizanidine 4 mg tablet 6 mg PO BEDTIME RF: 0 (DME) pen needle, diabetic 32 gauge x /32 needle See Rx Instructions ea subcut .MEDSUPPLY Qty: 50 RF: 0 duloxetine 30 mg capsule,delayed release(DR/EC) 30 mg PO BID RF: 0 gabapentin 400 mg capsule 400 mg PO TID RF: 0 trazodone 150 mg tablet 150 mg PO BEDTIME RF: 0 albuterol sulfate 90 mcg/actuation HFA aerosol inhaler inhalation RF: 0 nicotine 21 mg/24 hr patch 24 hour 1 patch transdermal DAILY Qty: 28 RF: 3 Tresiba FlexTouch U-100 100 unit/mL (3 mL) insulin pen 18 unit subcut BEDTIME 90 Days Qty: 30 RF: 1 Referrals: Mali Nova MD [Primary Care Provider] - 2 days Interventions: ED Discharge Assessment Last Done: 11/22/20 00:09 Discharge Date/Time: 11/22/20 00:11 [facility] Past Medical History Attestation statement: The following information was validated with the patient. 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 Mixed stress and urge incontinence Neuropathy Non-toxic multinodular goiter Obesity (BMI 30-39.9) Restless leg syndrome Type 2 diabetes mellitus with microalbuminuria, with long-term current use of insulin Vertigo Surgical History History of bilateral oophorectomy History of hysterectomy Hx of appendectomy Hx of section Hx of cholecystectomy Family History Family History Father Diabetes mellitus Heart murmur Mother Diabetes mellitus HTN (hypertension) Glaucoma Social History Social History Alcohol intake: never Smoking Status: Former smoker Advance Directives: No Advance Directives Information Provided: Yes Sexual orientation: Straight/Heterosexual Gender identity: female
== END 2020-11-22 00:11 | disposition home or self-care (01) ==
PROVIDERS: Emergency Provider Internal Medicine; PCP Internal Medicine
DX: K59.00 Constipation, unspecified (principal); M54.6 Pain in thoracic spine; R10.9 Unspecified abdominal pain; E11.9 Type 2 diabetes mellitus without complications; E78.5 Hyperlipidemia, unspecified; Z79.4 Long term (current) use of insulin
CPT/HCPCS: 36415; 74176; 80053; 81003; 83690; 85025; 99283; 99284

== ENCOUNTER → 2020-12-02 08:23 | Outpatient (BNVA) | payer OTHER, SELFPAY | PROVIDERS: PCP Internal Medicine; Visit Provider Student in an Organized Health Care Education/Training Program | DX: M79.7 Fibromyalgia (principal) | CPT/HCPCS: 99212 ==

== ENCOUNTER → 2020-12-24 10:58 | Outpatient (BNVA) | payer OTHER, SELFPAY | PROVIDERS: PCP Internal Medicine; Visit Provider Internal Medicine Endocrinology, Diabetes & Metabolism | DX: E11.65 Type 2 diabetes mellitus with hyperglycemia (principal); E66.9 Obesity, unspecified; E78.5 Hyperlipidemia, unspecified; E04.2 Nontoxic multinodular goiter; Z79.4 Long term (current) use of insulin | CPT/HCPCS: 82947; 99212 ==

== ENCOUNTER 2021-01-12 08:34 | Outpatient (REF) | payer OTHER, SELFPAY ==
--- NOTE | ~2021-01-12 | US_ITS ---
EXAMINATION: US THYROID CLINICAL INFORMATION: Nontoxic multinodular goiter. COMPARISON: Ultrasound soft tissue head/neck thyroid dated 12/08/2017 and 09/21/2016. TECHNIQUE: Linear transducer grayscale and color Doppler examination with attention to the region of the thyroid. FINDINGS: SIZE: Measurements of the solitary right thyroid lobe and nodules are given in sagittal, anteroposterior and transverse dimensions respectively. Right Thyroid Lobe: 4.1 x 2.2 x 1.7 cm, volume 8.0 mL. Previously 5.1 x 1.9 x 1.8 cm, volume 9.1 mL. Parenchyma: The gland echotexture is homogeneous. Thyroid vascularity is normal. Left Thyroid Lobe: Surgically absent. Isthmus: 0.5 cm in maximum AP dimension. Previously 0.3 cm. Estimated total number of nodules greater than or equal to 1 cm: 0. 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 Location: Right superior/mid. Size: 0.33 x 0.26 x 0.32 cm, volume 0.14 mL. Previously: 0.24 x 0.21 x 0.16 cm, volume 0.004 mL. Nodule characteristics: Composition: Solid (2). Echogenicity: Hypoechoic (2). Shape: Not taller than wide (0). Margins: Smooth (0). Echogenic Foci: None (0). ACR TI-RADS total points: 4 ACR TI-RADS category: 4 Significant change in size (>/= 20% in 2 dimensions and minimal increase of 2 mm or 50% or greater increase in volume): Yes Change in features: No Change in ACR TI-RADS risk category: No 2. Location: Right mid. Size: 0.39 x 0.24 x 0.41 cm, volume 0.20 mL. Previously: 0.28 x 0.21 x 0.28 cm, volume 0.009 mL. Nodule characteristics: Composition: Cystic(0). ACR TI-RADS total points: 0 ACR TI-RADS category: 1 Significant change in size (>/= 20% in 2 dimensions and minimal increase of 2 mm or 50% or greater increase in volume): Yes Change in features: No Change in ACR TI-RADS risk category: No No residual left thyroid tissue or nodule. NODES: No lymphadenopathy is seen in the tissue surrounding the thyroid gland. US/US thyroid IMPRESSION: Interval increase in size in small right thyroid nodules compared to 2018. These do not meet TI RADS ultrasound criteria for fine-needle aspiration for follow-up. ACR TI-RADS RECOMMENDATION REFERENCE: Ultrasound-guided fine-needle aspiration, followup ultrasound, no further follow up. * TR1 (0 point) and TR 2 (2 points): No FNA or follow up * TR3 (3 points): FNA if more than or equal to 2.5 cm in maximum dimension, followup ultrasound in 1, 3 and 5 years if 1.5 to 2.4 cm in maximum dimension. * TR4 (4-6 points): FNA if more than or equal to 1.5 cm in maximum dimension, followup ultrasound in 1, 2, 3 and 5 years if 1 to 1.4 cm in maximum dimension. * TR5 (more than or equal to 7 points): FNA if more than or equal to 1 cm in maximum dimension, followup ultrasound every year for 5 years if 0.5 to 0.9 cm in maximum dimension. * TR3, TR4 or TR5 nodules that are below the size threshold for follow up receive no follow up.
== END 2021-01-12 08:35 | disposition home or self-care (01) ==
LOC: HO.US 08:34
PROVIDERS: Visit Provider Internal Medicine Endocrinology, Diabetes & Metabolism
DX: E04.2 Nontoxic multinodular goiter (principal)
CPT/HCPCS: 76536

== ENCOUNTER 2021-04-10 12:14 | Outpatient (REF) | payer OTHER, SELFPAY ==
--- NOTE | ~2021-04-10 | XR_ITS ---
EXAMINATION: XR ELBOW, RIGHT CLINICAL INFORMATION: Pain in right elbow COMPARISON: None TECHNIQUE: AP, lateral, and oblique views of the right elbow. FINDINGS: No acute visible fracture or dislocation. Joint spaces and alignment are maintained. No large elbow joint effusion. Soft tissues are unremarkable. XR/XR elbow RT min 3V IMPRESSION: No acute visible fracture or dislocation.
[2021-04-10 15:03] LABS: Vitamin B12 1021 pg/mL (200-900)
[2021-04-10 15:19] LABS: Alanine Aminotransferase 31 U/L (0-31); Anion Gap 13 (12-20); Aspartate Amino Transferase 30 U/L (5-31); Blood Urea Nitrogen 10 mg/dL (9-16); Calcium 10.1 mg/dL (8.4-10.2); Carbon Dioxide 28 mmol/L (22-29); Chloride 103 mmol/L (96-108); Cholesterol 153 mg/dL; Estimated Glomerular Filt Rate > 60; Glucose Fasting 80 mg/dL (60-99); HDL Cholesterol 37 mg/dL; LDL Cholesterol Calculated 68 mg/dl; Potassium 4.6 mmol/L (3.3-5.1); Sodium 139 mmol/L (135-145); Triglycerides 240 mg/dL
[2021-04-10 15:41] LABS: Free T4 (Free Thyroxine) 0.94 ng/dL (0.71-1.85)
[2021-04-11 07:45] LABS: Estimated Average Glucose 111 mg/dL; Hemoglobin A1c % 5.5 %
== END 2021-04-10 12:15 | disposition home or self-care (01) ==
LOC: HO.HMGCX 12:14
PROVIDERS: PCP Internal Medicine; Visit Provider Internal Medicine Endocrinology, Diabetes & Metabolism
DX: M25.521 Pain in right elbow (principal); E66.9 Obesity, unspecified; E78.5 Hyperlipidemia, unspecified; R80.9 Proteinuria, unspecified; E03.9 Hypothyroidism, unspecified; E04.2 Nontoxic multinodular goiter; I10 Essential (primary) hypertension; E53.8 Deficiency of other specified B group vitamins; Z79.4 Long term (current) use of insulin
CPT/HCPCS: 36415; 73080; 80048; 80061; 82607; 83036; 84439; 84443; 84450; 84460

== ENCOUNTER 2021-04-25 16:18 | Outpatient (REF) | payer OTHER, SELFPAY | END 2021-04-25 16:19 | disposition home or self-care (01) | LOC: HO.LNP 16:18 | PROVIDERS: Visit Provider Physician Assistant Medical | DX: J32.9 Chronic sinusitis, unspecified (principal); Z20.822 Contact with and (suspected) exposure to COVID-19 | CPT/HCPCS: U0003; U0005 ==

== ENCOUNTER 2021-06-03 15:27 | Outpatient (REF) | payer OTHER, SELFPAY | END 2021-06-03 15:28 | disposition home or self-care (01) | LOC: HO.LAB 15:27 | PROVIDERS: Visit Provider Physician Assistant Medical | DX: Z20.822 Contact with and (suspected) exposure to COVID-19 (principal); R05.9 Cough, unspecified; J45.909 Unspecified asthma, uncomplicated | CPT/HCPCS: U0003; U0005 ==

== ENCOUNTER 2021-06-10 06:23 | Outpatient (REF) | payer OTHER, SELFPAY ==
[2021-06-10 07:42] LABS: Creatinine Urine 98.34 mg/dL; Microalbum/Creatinine Ratio Ur 7.1 ug/mg cr
[2021-06-10 07:49] LABS: Alanine Aminotransferase 25 U/L (0-31); Anion Gap 10 (12-20); Aspartate Amino Transferase 18 U/L (5-31); Blood Urea Nitrogen 15 mg/dL (9-16); Calcium 9.5 mg/dL (8.4-10.2); Carbon Dioxide 32 mmol/L (22-29); Chloride 101 mmol/L (96-108); Cholesterol 192 mg/dL; Estimated Glomerular Filt Rate > 60; Glucose Fasting 104 mg/dL (60-99); HDL Cholesterol 53 mg/dL; LDL Cholesterol Calculated 97 mg/dl; Potassium 4.4 mmol/L (3.3-5.1); Sodium 139 mmol/L (135-145); Triglycerides 213 mg/dL
[2021-06-10 07:51] LABS: Estimated Average Glucose 114 mg/dL; Hemoglobin A1c % 5.6 %
[2021-06-10 08:14] LABS: Vitamin D 25-OH Total 44.7 ng/mL (>30)
[2021-06-10 09:39] LABS: Folate 18.8 ng/mL (> or = 4.0); Vitamin B12 612 pg/mL (200-900)
== END 2021-06-10 06:24 | disposition home or self-care (01) ==
LOC: HO.LAB 06:23
PROVIDERS: PCP Internal Medicine; Visit Provider Internal Medicine
DX: Z00.01 Encounter for general adult medical examination with abnormal findings (principal); E11.29 Type 2 diabetes mellitus with other diabetic kidney complication; E53.8 Deficiency of other specified B group vitamins; E78.5 Hyperlipidemia, unspecified; R80.9 Proteinuria, unspecified; I10 Essential (primary) hypertension; E04.2 Nontoxic multinodular goiter; Z78.0 Asymptomatic menopausal state; Z79.4 Long term (current) use of insulin
CPT/HCPCS: 36415; 80048; 80061; 82043; 82306; 82607; 82746; 83036; 84443; 84450; 84460

== ENCOUNTER 2021-06-21 11:04 | Emergency (ER) | payer OTHER, SELFPAY ==
--- NOTE | ~2021-06-21 | XR_ITS ---
EXAMINATION: XR CHEST CLINICAL INFORMATION: SOB. COMPARISON: None TECHNIQUE: Frontal view of the chest was obtained. FINDINGS: No significant abnormality is noted involving the heart, lungs, mediastinum, bony thorax or soft tissues. XR/XR chest 1V IMPRESSION: Unremarkable chest examination.
[2021-06-21 11:13] VITALS: BP 123/76; PULSE 106; RESP 28; TEMP 36.9; O2SAT 98; BMI 31.7
--- NOTE | 2021-06-21 11:42 | ED.ASTHMA ---
HPI - Asthma General Chief Complaint: Asthma Stated Complaint: asthma diff breathing Time Seen by Provider: 06/21/21 11:37 Source: patient Mode of arrival: ambulatory Limitations: no limitations History of Present Illness HPI Narrative: 50-year-old female came in for evaluation of shortness of breath. Patient with known history of asthma came in for asthma exacerbation, otherwise patient declined exposure to sick contact, patient's symptoms are similar to her previous asthma exacerbation symptoms. Related Data Home Medications Medication Instructions Recorded Confirmed clonazepam 1 mg tablet 1 mg PO BID 04/28/20 06/09/21 albuterol sulfate 90 mcg/actuation INHALATION 05/05/20 06/09/21 aerosol inhaler trazodone 150 mg tablet 150 mg PO BEDTIME 05/05/20 06/09/21 ibuprofen 800 mg tablet 800 mg PO BID 06/05/20 06/09/21 ipratropium 0.5 mg-albuterol 3 mg 3 ml INHALATION Q6H PRN 06/05/20 06/09/21 (2.5 mg base)/3 mL nebulization soln Previous Rx's Medication Instructions Recorded fluticasone propionate 50 1 spray INTRANASAL DAILY #16 cap 06/20/20 mcg/actuation nasal spray,suspension blood sugar diagnostic #300 ea 09/24/20 lancets 28 gauge #300 ea 09/24/20 mirabegron 25 mg tablet,extended 25 mg PO DAILY #30 tab 10/06/20 release 24 hr (Myrbetriq) ezetimibe 10 mg tablet 10 mg PO DAILY #90 cap 10/20/20 docusate sodium 100 mg capsule 100 mg PO BID #60 cap 12/17/20 (Stool Softener) cholecalciferol (vitamin D3) 25 25 mcg PO DAILY #30 cap 12/24/20 mcg (1,000 unit) tablet cyanocobalamin (vitamin B-12) 500 500 mcg SUBLINGUAL DAILY #30 cap 12/24/20 mcg disintegrating tablet,sublingual dulaglutide 3 mg/0.5 mL 3 mg (0.5 mL) SUBCUT QWEEK 30 Days 12/24/20 subcutaneous pen injector #2.5 ml (Trulicity) insulin degludec 100 unit/mL (3 18 unit (0.18 mL) SUBCUT BEDTIME 12/24/20 mL) subcutaneous pen (Tresiba 90 Days #30 ml FlexTouch U-100 insulin) metformin 750 mg tablet,extended 750 mg PO BID 90 Days #180 tab 12/24/20 release 24 hr pen needle, diabetic 32 gauge x #50 ea 12/24/20 (BD Vanessa 2nd Gen Pen Needle) incontinence pad #120 ea 01/28/21 albuterol sulfate 90 mcg/actuation 2 puff INHALATION Q6H PRN #18 g 01/28/21 aerosol inhaler (ProAir HFA) cane with quad tips #1 ea 01/28/21 gabapentin 400 mg capsule 400 mg PO TID 30 Days #90 cap 01/28/21 ropinirole 0.5 mg tablet 0.5 mg PO BEDTIME #90 cap 01/28/21 famotidine 40 mg tablet 40 mg PO DAILY #30 cap 02/20/21 cetirizine 10 mg tablet 10 mg PO DAILY #30 tab 04/23/21 meclizine 12.5 mg tablet 12.5 mg PO DAILY PRN #20 tab 04/25/21 benzonatate 100 mg capsule 100 mg PO TID PRN #30 cap 06/03/21 duloxetine 30 mg capsule,delayed 30 mg PO BID #60 cap 06/08/21 release tizanidine 4 mg tablet 4 mg PO TID PRN #90 tab 06/08/21 fluticasone 250 mcg-salmeterol 50 1 inh INHALATION BID #60 ea 06/09/21 mcg/dose blistr powdr for inhalation (Advair Diskus) nicotine 14 mg/24 hr daily 1 patch TRANSDERMAL DAILY 28 Days 06/09/21 transdermal patch #28 ea albuterol sulfate 90 mcg/actuation 1 inh INHALATION QID PRN #6.7 g 06/21/21 aerosol inhaler azithromycin 250 mg tablet See Rx Instructions .ROUTE 06/21/21 (Zithromax Z-Marcio) .COMPLEX #6 tab prednisone 20 mg tablet 20 mg PO BID #10 tab 06/21/21 Allergies Allergy/AdvReac Type Severity Reaction Status Date / Time latex [LATEX] Allergy Mild HIVES/RASH Verified 06/09/21 08:57 aspirin Allergy Unknown rash Verified 06/09/21 08:57 amoxicillin AdvReac Unknown diarrhea Verified 06/09/21 08:57 Beef Containing Products AdvReac Unknown DIARRHEA/VO Verified 06/09/21 08:57 MITING [employer] Allergy Unknown inflammation Uncoded 06/03/21 15:10 and swelling Review of Systems Review of Systems: All other systems are reviewed and are negative Constitutional: Reports as per HPI and Reports no additional constitutional complaints Eyes: Reports as per HPI and Reports no additional eye complaints Reports system reviewed and no additional complaints, except as documented Cardiovascular: Reports as per HPI and Reports no additional cardiovascular complaints Respiratory: Reports as per HPI and Reports no additional respiratory complaints Gastrointestinal: Reports as per HPI and Reports no additional gastrointestinal complaints Genitourinary: Reports no additional female genitourinary complaints Musculoskeletal: Reports no additional musculoskeletal complaints Skin/Breast: Reports system reviewed and no additional complaints, except as docu Psychiatric: Reports no additional psychiatric complaints Endocrine: Reports no additional endocrine complaints Hematologic/Lymphatic: Reports no additional hematologic/lymphatic complaints Allergic/Immunologic: Reports no additional allergic/immunologic complaints Reports system reviewed and no additional complaints, except as documented and Reports Abnormal speech present PMFSH Past Medical History Medical History Allergic rhinitis Anxiety Arthritis Asthma B12 deficiency Cigarette smoker motivated to quit Colon cancer screening COVID-19 vaccination declined Decreased hearing of right ear Depression Depression with anxiety Diabetes Dyslipidemia Fibromyalgia GERD (gastroesophageal reflux disease) Mild intermittent asthma Mixed stress and urge incontinence Neuropathy Non-toxic multinodular goiter Obesity (BMI 30-39.9) Restless leg syndrome Tinnitus of right ear Type 2 diabetes mellitus with microalbuminuria, with long-term current use of insulin Vertigo Surgical History History of bilateral oophorectomy History of hysterectomy Hx of appendectomy Hx of section Hx of cholecystectomy Family History Family History Father Diabetes mellitus Heart murmur Mother Diabetes mellitus HTN (hypertension) Glaucoma Social History Social History Housing: Apartment Alcohol intake: never Patient Tobacco Use Status: Current everyday Tobacco user Tobacco use type: Cigarette Cigarettes Per Day: 5 Years Smoked: 34 e-Cigarette/Vaping Use: Never Used Advance Directives: No Advance Directives Information Provided: No Patient : No Current occupational status: unemployed Sexual orientation: Straight/Heterosexual Gender identity: Female Physical Exam Vital Signs: Vital Signs: Last Vital Signs Temp 97.8 F 06/21/21 12:04 Pulse 87 06/21/21 12:07 Resp 18 06/21/21 12:04 BP 132/80 06/21/21 12:04 Pulse Ox 95 06/21/21 12:04 Body Mass Index 31.7 Vital signs have been reviewed as appeared to be correct. Blood pressure normal. Heart rate elevated. Respiration rate elevated. Temperature normal. Oxygen saturation normal. Appearance: Alert. Oriented X3. No acute distress. Head: Normal external exam. Normocephalic. Atraumatic. No Sandoval signs noted. No raccoon eyes noted Eyes: PERRLA. EOMI. Conjunctiva and sclera normal. Eyelids normal. ENT: TM's Normal. Pharynx normal. Uvula midline. Moist mucous membranes. No trismus noted. No drooling noted. No muffled voice noted. Neck: Normal inspection. Neck supple. FROM. No adenopathy. Thyroid Normal. No meningeal signs. No neck mass noted. CVS: Normal heart rate and rhythm. Heart sound normal. No murmurs noted. Pulses normal throughout. Respiratory: No respiratory distress. Painless inspiration. Breath sounds normal. Diffuse mild expiratory wheezing with prolonged expiration, Chest nontender. No accessory muscle usage noted or decreased air movement noted. Abdomen: Soft and nontender. Bowel sounds normal in all 4 quadrants. No distention noted. No organomegaly noted. No visible injury noted. Back: No CVA tenderness. Full range of motion noted. Skin: Skin warm and dry. Normal skin color. Normal skin turgor. No rashes/lesions/lacerations noted. Extremities: No lower extremity edema. Extremities exhibit normal range of motion. Extremities nontender. Neuro: Oriented X 3. Cranial nerve exam: II-XII are grossly intact No motor deficit. No sensory deficit. Reflexes normal. Course Course Course Narrative: Assessment and plan. 50-year-old female with history of asthma came in with acute asthma exacerbation, patient feels better after was given bronchodilator/prednisone in the ED. Patient was made to walk in the ED with O2 of 98% on room air after exertion. Repeat lung exam shows decreased wheezing. Will discharge home with prednisone/ProAir/Z-Marcio. [facility] - Asthma Medical Records Attestation: I reviewed the patient's medical records. Lab Data Attestation: I reviewed the patient's lab results. Labs: Lab Results 06/21/21 Range/Units 12:03 Influenza Type A (PCR) NEGATIVE (Negative) Influenza Type B (PCR) NEGATIVE (Negative) RSV RNA Qual (PCR) NEGATIVE (Negative) SARS-CoV-2 RNA (RT-PCR) NEGATIVE (Negative) Imaging Data Chest x-ray: Radiologist's impression: Unremarkable chest examination. Discharge Plan Discharge Clinical Impression: Asthma with acute exacerbation Patient Disposition: Home, Self-Care Instructions: Asthma (ED) Prescriptions: New prednisone 20 mg tablet 20 mg PO BID Qty: 10 RF: 0 albuterol sulfate 90 mcg/actuation HFA aerosol inhaler 1 inh inhalation QID PRN (Reason: shortness of breath or wheezing) Qty: 6.7 RF: 0 azithromycin [Zithromax Z-Marcio] 250 mg tablet See Rx Instructions .ROUTE .COMPLEX Qty: 6 RF: 0 No Action fluticasone propionate 50 mcg/actuation spray,suspension 1 spray intranasal DAILY Qty: 16 RF: 6 (DME) blood sugar diagnostic Strip See Rx Instructions ea Not Applicable QID Qty: 300 RF: 3 (DME) lancets 28 gauge misc See Rx Instructions ea topical QID Qty: 300 RF: 3 ezetimibe 10 mg tablet 10 mg PO DAILY Qty: 90 RF: 2 docusate sodium [Stool Softener] 100 mg capsule 100 mg PO BID Qty: 60 RF: 5 famotidine 40 mg tablet 40 mg PO DAILY Qty: 30 RF: 6 cetirizine 10 mg tablet 10 mg PO DAILY Qty: 30 RF: 4 duloxetine 30 mg capsule,delayed release(DR/EC) 30 mg PO BID Qty: 60 RF: 3 tizanidine 4 mg tablet 4 mg PO TID PRN (Reason: muscle spasticity) Qty: 90 RF: 1 clonazepam 1 mg tablet 1 mg PO BID RF: 0 Myrbetriq 25 mg tablet extended release 24 hr 25 mg PO DAILY Qty: 30 RF: 0 ibuprofen 800 mg tablet 800 mg PO BID RF: 0 ipratropium-albuterol 0.5 mg-3 mg(2.5 mg base)/3 mL solution for nebulization 3 ml inhalation Q6H PRN (Reason: muscle spasm) RF: 0 trazodone 150 mg tablet 150 mg PO BEDTIME RF: 0 albuterol sulfate 90 mcg/actuation HFA aerosol inhaler inhalation RF: 0 nicotine 14 mg/24 hr patch 24 hour 1 patch transdermal DAILY 28 Days Qty: 28 RF: 0 fluticasone propion-salmeterol [Advair Diskus] 250-50 mcg/dose blister with device 1 inh inhalation BID Qty: 60 RF: 3 (DME) cane with quad tips See Rx Instructions .Route .MEDSUPPLY Qty: 1 RF: 0 (DME) incontinence pad See Rx Instructions .Route .MEDSUPPLY Qty: 120 RF: 8 gabapentin 400 mg capsule 400 mg PO TID 30 Days Qty: 90 RF: 5 albuterol sulfate [ProAir HFA] 90 mcg/actuation HFA aerosol inhaler 2 puff inhalation Q6H PRN (Reason: shortness of breath or wheezing) Qty: 18 RF: 5 ropinirole 0.5 mg tablet 0.5 mg PO BEDTIME Qty: 90 RF: 2 meclizine 12.5 mg tablet 12.5 mg PO DAILY PRN (Reason: dizziness) Qty: 20 RF: 1 benzonatate 100 mg capsule 100 mg PO TID PRN (Reason: cough) Qty: 30 RF: 0 cholecalciferol (vitamin D3) 25 mcg (1,000 unit) tablet 25 mcg PO DAILY Qty: 30 RF: 5 cyanocobalamin (vitamin B-12) 500 mcg tablet,disintegrating 500 mcg sublingual DAILY Qty: 30 RF: 11 Tresiba FlexTouch U-100 100 unit/mL (3 mL) insulin pen 18 unit subcut BEDTIME 90 Days Qty: 30 RF: 1 metformin 750 mg tablet extended release 24 hr 750 mg PO BID 90 Days Qty: 180 RF: 1 (DME) pen needle, diabetic [BD Vanessa 2nd Gen Pen Needle] 32 gauge x 5/32 needle See Rx Instructions .MEDSUPPLY Qty: 50 RF: 4 Trulicity 3 mg/0.5 mL pen injector 3 mg subcut QWEEK 30 Days Qty: 2.5 RF: 6 Referrals: Mali Nova MD [Primary Care Provider] - 2 days
[2021-06-21] MEDS: predniSONE 20 MG TABLET 60 MG PO (11:59)
[2021-06-21 12:04] VITALS: BP 132/80; PULSE 91; RESP 18; TEMP 36.6; O2SAT 95
[2021-06-21] MEDS: Albuterol Sulfate (0.083%) 2.5 MG/3 ML VIAL.NEB 5 MG INHALE (12:06)
[2021-06-21] MEDS: Albuterol/Iprat 2.5/0.5MG 3 ML AMPUL.NEB INHALE (12:06)
[2021-06-21 12:07] VITALS: PULSE 87; O2SAT 99
[2021-06-21 12:51] LABS: Influenza A PCR NEGATIVE (Negative); Influenza B PCR NEGATIVE (Negative); Resp Syncy Virus RNA Qual PCR NEGATIVE (Negative); SARS COV2 PCR INHOUSE NEGATIVE (Negative)
== END 2021-06-21 13:31 | disposition home or self-care (01) ==
PROVIDERS: Emergency Provider Emergency Medicine; PCP Internal Medicine
DX: J45.901 Unspecified asthma with (acute) exacerbation (principal); Z20.822 Contact with and (suspected) exposure to COVID-19; E11.9 Type 2 diabetes mellitus without complications; Z79.4 Long term (current) use of insulin; F17.200 Nicotine dependence, unspecified, uncomplicated
CPT/HCPCS: 0241U; 36415; 71045; 94640; 94644; 99283; 99284

== ENCOUNTER 2021-06-26 14:02 | Emergency (ER) | payer OTHER, SELFPAY ==
--- NOTE | ~2021-06-26 | XR_ITS ---
EXAMINATION: XR CHEST CLINICAL INFORMATION: Cough. COMPARISON: None TECHNIQUE: Frontal view of the chest was obtained. FINDINGS: No significant abnormality is noted involving the heart, lungs, mediastinum, bony thorax or soft tissues. XR/XR chest 1V IMPRESSION: Unremarkable chest exam.
[2021-06-26 14:08] VITALS: BP 130/88; PULSE 111; RESP 22; TEMP 36.6; O2SAT 96; BMI 32.5
--- NOTE | 2021-06-26 14:14 | ECG_ITS ---
Test Reason : CP Blood Pressure : / mmHG Vent. Rate : 105 BPM Atrial Rate : 105 BPM P-R Int : 138 ms QRS Dur : 086 ms QT Int : 320 ms P-R-T Axes : 071 -45 072 degrees QTc Int : 422 ms Sinus tachycardia Leftward axis Otherwise normal EKG When compared with ECG of 10-NOV-2019 21:13, No significant changes seen Referred By: Generic ED Physician Electronically Signed By:KVNG HERNANDES
[2021-06-26 14:31] LABS: MANUAL DIFF FLAG NO
[2021-06-26 14:32] LABS: Basophils Percent Auto 0.3 % (0-2); Eosinophils Percent Auto 0.1 % (0-4); Hematocrit 38.4 % (37.0-47.0); Hemoglobin 13.5 g/dl (12.0-16.0); Imm Gran Abs Auto 0.15 X10*3/uL (0.00-0.03); Imm Gran Pct Auto 1.3 % (0.0-0.4); Lymphocytes Absolute Auto 3.3 X10*3/uL (1.2-4.9); Mean Corpuscular HGB Conc 35.2 g/dl (31.0-35.0); Mean Corpuscular Hemoglobin 32.3 pg (27.0-33.0); Mean Corpuscular Volume 91.9 fL (80.0-98.0); Mean Platelet Volume 9.2 fL (9.4-12.3); Monocytes Absolute Auto 0.5 X10*3/uL (0.1-1.2); Neutrophils Absolute Auto 7.5 x10*3/uL (2.0-8.3); Neutrophils Percent Auto 65.3 % (45-73); Platelet Count 325 X10*3/uL (160-400); Red Blood Count 4.18 X10*6/uL (4.20-5.50); White Blood Count 11.5 X10*3/uL (4.8-10.8)
[2021-06-26 14:48] LABS: COVID-19 Test Negative (Negative)
[2021-06-26 14:50] LABS: Alanine Aminotransferase 27 U/L (0-31); Albumin Level 4.3 g/dL (3.5-5.0); Alkaline Phosphatase 110 U/L (39-117); Anion Gap 17 (12-20); Aspartate Amino Transferase 16 U/L (5-31); Bilirubin Direct 0.2 mg/dL (0.0-0.5); Bilirubin Total 0.5 mg/dL (0.0-1.0); Blood Urea Nitrogen 12 mg/dL (9-16); Calcium 9.4 mg/dL (8.4-10.2); Carbon Dioxide 24 mmol/L (22-29); Chloride 101 mmol/L (96-108); Creatinine Clr Calc Pharmacy 85.1; Estimated Glomerular Filt Rate > 60; Glucose Random 185 mg/dL (60-115); Lipase 12 U/L (8-78); Potassium 3.6 mmol/L (3.3-5.1); Sodium 138 mmol/L (135-145); Total Protein 6.5 g/dL (6.5-8.0)
[2021-06-26 14:55] LABS: Troponin-I High Sensitivity < 3.5 ng/L (<3.5-17.0)
--- NOTE | 2021-06-26 19:27 | ED_ITS ---
HPI - SOB/Dyspnea General Chief Complaint: Dyspnea Stated Complaint: diff breathing Source: patient Mode of arrival: ambulatory Limitations: language barrier History of Present Illness HPI Narrative: 50-year-old female presents with shortness breath, cough, chest tightness and dizziness for several days. Has been using inhalers without relief. MD elicited complaint: shortness of breath, cough and asthma attack Pertinent past history: asthma Onset (ago): day(s) Context: recent illness Timing: constant Severity: moderate Exacerbating factors: exertion, movement and coughing Relieving factors: nothing Known history of: asthma Associated symptoms: cough, wheezing and palpitations Treatment prior to arrival: bronchodilator Related Data Home oxygen amount: none Home Medications Medication Instructions Recorded Confirmed clonazepam 1 mg tablet 1 mg PO BID 04/28/20 06/09/21 albuterol sulfate 90 mcg/actuation INHALATION 05/05/20 06/09/21 aerosol inhaler trazodone 150 mg tablet 150 mg PO BEDTIME 05/05/20 06/09/21 ibuprofen 800 mg tablet 800 mg PO BID 06/05/20 06/09/21 ipratropium 0.5 mg-albuterol 3 mg 3 ml INHALATION Q6H PRN 06/05/20 06/09/21 (2.5 mg base)/3 mL nebulization soln Previous Rx's Medication Instructions Recorded fluticasone propionate 50 1 spray INTRANASAL DAILY #16 cap 06/20/20 mcg/actuation nasal spray,suspension blood sugar diagnostic #300 ea 09/24/20 lancets 28 gauge #300 ea 09/24/20 mirabegron 25 mg tablet,extended 25 mg PO DAILY #30 tab 10/06/20 release 24 hr (Myrbetriq) ezetimibe 10 mg tablet 10 mg PO DAILY #90 cap 10/20/20 docusate sodium 100 mg capsule 100 mg PO BID #60 cap 12/17/20 (Stool Softener) cholecalciferol (vitamin D3) 25 25 mcg PO DAILY #30 cap 12/24/20 mcg (1,000 unit) tablet cyanocobalamin (vitamin B-12) 500 500 mcg SUBLINGUAL DAILY #30 cap 12/24/20 mcg disintegrating tablet,sublingual dulaglutide 3 mg/0.5 mL 3 mg (0.5 mL) SUBCUT QWEEK 30 Days 12/24/20 subcutaneous pen injector #2.5 ml (Trulicity) insulin degludec 100 unit/mL (3 18 unit (0.18 mL) SUBCUT BEDTIME 12/24/20 mL) subcutaneous pen (Tresiba 90 Days #30 ml FlexTouch U-100 insulin) metformin 750 mg tablet,extended 750 mg PO BID 90 Days #180 tab 12/24/20 release 24 hr pen needle, diabetic 32 gauge x #50 ea 12/24/20 (BD Vanessa 2nd Gen Pen Needle) incontinence pad #120 ea 01/28/21 albuterol sulfate 90 mcg/actuation 2 puff INHALATION Q6H PRN #18 g 01/28/21 aerosol inhaler (ProAir HFA) cane with quad tips #1 ea 01/28/21 gabapentin 400 mg capsule 400 mg PO TID 30 Days #90 cap 01/28/21 ropinirole 0.5 mg tablet 0.5 mg PO BEDTIME #90 cap 01/28/21 famotidine 40 mg tablet 40 mg PO DAILY #30 cap 02/20/21 cetirizine 10 mg tablet 10 mg PO DAILY #30 tab 04/23/21 meclizine 12.5 mg tablet 12.5 mg PO DAILY PRN #20 tab 04/25/21 benzonatate 100 mg capsule 100 mg PO TID PRN #30 cap 06/03/21 duloxetine 30 mg capsule,delayed 30 mg PO BID #60 cap 06/08/21 release tizanidine 4 mg tablet 4 mg PO TID PRN #90 tab 06/08/21 fluticasone 250 mcg-salmeterol 50 1 inh INHALATION BID #60 ea 06/09/21 mcg/dose blistr powdr for inhalation (Advair Diskus) nicotine 14 mg/24 hr daily 1 patch TRANSDERMAL DAILY 28 Days 06/09/21 transdermal patch #28 ea albuterol sulfate 90 mcg/actuation 1 inh INHALATION QID PRN #6.7 g 06/21/21 aerosol inhaler azithromycin 250 mg tablet See Rx Instructions .ROUTE 06/21/21 (Zithromax Z-Marcio) .COMPLEX #6 tab prednisone 20 mg tablet 20 mg PO BID #10 tab 06/21/21 azithromycin 250 mg tablet 250 mg PO DAILY 4 Days #4 tab 06/26/21 prednisone 20 mg tablet 60 mg PO DAILY 4 Days #12 tab 06/26/21 Allergies Allergy/AdvReac Type Severity Reaction Status Date / Time latex [LATEX] Allergy Mild HIVES/RASH Verified 06/09/21 08:57 aspirin Allergy Unknown rash Verified 06/09/21 08:57 amoxicillin AdvReac Unknown diarrhea Verified 06/09/21 08:57 Beef Containing Products AdvReac Unknown DIARRHEA/VO Verified 06/09/21 08:57 MITING [employer] Allergy Unknown inflammation Uncoded 06/03/21 15:10 and swelling Review of Systems Review of Systems: Constitutional: No Fever, No Chills ENT/Mouth: Positive Hoarseness, No sore throat, No Rhinorrhea Eyes: No Redness, No Discharge, No Vision Changes Cardiovascular: No Chest Pain, positive SOB, positive Dyspnea on Exertion, No Edema Respiratory: positive Cough, No Sputum, positive Wheezing, Gastrointestinal: No Nausea, No Vomiting, No Diarrhea, No abdominal Pain Genitourinary: No Dysuria, No Hematuria Musculoskeletal: No joint pain, No Myalgias Skin: No rash Neuro: No Weakness, No Numbness, No Headache Psych: No anxiety, depression Heme/Lymph: No Bruising, No Bleeding Endocrine: No Polyuria, No Polydipsia Yes all other systems are reviewed and are negative PMFSH Past Medical History Attestation statement: The following information was validated with the patient. Source: old records reviewed Medical History Allergic rhinitis Anxiety Arthritis Asthma B12 deficiency Cigarette smoker motivated to quit Colon cancer screening COVID-19 vaccination declined Decreased hearing of right ear Depression Depression with anxiety Diabetes Dyslipidemia Fibromyalgia GERD (gastroesophageal reflux disease) Mild intermittent asthma Mixed stress and urge incontinence Neuropathy Non-toxic multinodular goiter Obesity (BMI 30-39.9) Restless leg syndrome Tinnitus of right ear Type 2 diabetes mellitus with microalbuminuria, with long-term current use of insulin Vertigo Surgical History History of bilateral oophorectomy History of hysterectomy Hx of appendectomy Hx of section Hx of cholecystectomy Family History Family History Father Diabetes mellitus Heart murmur Mother Diabetes mellitus HTN (hypertension) Glaucoma Social History Social History Housing: Apartment Alcohol intake: never Patient Tobacco Use Status: Current everyday Tobacco user Tobacco use type: Cigarette Cigarettes Per Day: 5 Years Smoked: 34 e-Cigarette/Vaping Use: Never Used Advance Directives: No Advance Directives Information Provided: Yes Current occupational status: unemployed Sexual orientation: Straight/Heterosexual Gender identity: Female Physical Exam Vital Signs: Vital Signs: Last Vital Signs Temp 98.1 F 06/26/21 19:52 Pulse 82 06/26/21 19:52 Resp 16 06/26/21 19:52 BP 127/61 06/26/21 19:52 Pulse Ox 95 06/26/21 19:52 BMI result Body Mass Index 32.5 Appearance: Alert. Oriented X3. No acute distress. Eyes: Pupils equal, round and reactive to light. ENT: Pharynx normal. Neck: Normal inspection. Neck supple. CVS: Tachycardic heart rate and rhythm. Pulses normal. Respiratory: No respiratory distress. Expiratory wheezing. Abdomen: Soft and nontender. Skin: Skin warm and dry. Normal skin color. Normal skin turgor. Extremities: No lower extremity edema. Gait well-balanced well coordinated. Moves all extremities against resistance. Neuro: No motor deficit. No sensory deficit. Cranial nerves 2-12 intact. Course Course Course Narrative: 50-year-old female presents with cough, asthma exacerbation. Lab values unremarkable, heart rate 111 patient has taken multiple albuterol nebulizers prior to her initial triage vitals. Patient is afebrile, appears nontoxic, even unlabored respirations. No acute distress. Heart rate in the 80s upon my initial assessment. Will add D-dimer her lab values. D-dimer negative. Will give azithromycin and prednisone. Patient verbalized understanding of and agrees of care discharge home. Will refer to Dr. Barone for poorly-controlled asthma. translate utilized for discharge instructions. paraprofessional interpreter utilized for all correspondence. MDM - SOB/Dyspnea Differential Diagnosis Differential diagnosis: Likely acute exacerbation of chronic obstructive airways disease, pneumonia and pulmonary embolism Medical Records Attestation: I reviewed the patient's medical records. Lab Data Attestation: I reviewed the patient's lab results. Result diagrams: 06/26/21 14:24 06/26/21 14:24 Labs: Lab Results 06/26/21 06/26/21 06/26/21 Range/Units 14:24 14:24 14:24 WBC 11.5 H (4.8-10.8) X10*3/uL RBC 4.18 L (4.20-5.50) X10*6/uL Hgb 13.5 (12.0-16.0) g/dl Hct 38.4 (37.0-47.0) % MCV 91.9 (80.0-98.0) fL MCH 32.3 (27.0-33.0) pg MCHC 35.2 H (31.0-35.0) g/dl RDW 13.0 (11.0-16.0) % Plt Count 325 (160-400) X10*3/uL MPV 9.2 L (9.4-12.3) fL Immature Gran % (Auto) 1.3 H (0.0-0.4) % Neut % (Auto) 65.3 (45-73) % Lymph % (Auto) 29.0 (20-40) % [place] % (Auto) 4.0 (2-11) % Eos % (Auto) 0.1 (0-4) % Baso % (Auto) 0.3 (0-2) % Lymph # (Auto) 3.3 (1.2-4.9) X10*3/uL [place] # (Auto) 0.5 (0.1-1.2) X10*3/uL Eos # (Auto) 0.0 (0.0-0.4) X10*3/uL Baso # (Auto) 0.0 (0.0-0.2) X10*3/uL Abs Immat Gran (auto) 0.15 H (0.00-0.03) X10*3/uL Absolute Neuts (auto) 7.5 (2.0-8.3) x10*3/uL Absolute Nucleated RBC 0.000 (0.0-0.012) X10*3/uL Nucleated RBC % (auto) 0.0 (0.0-0.2) /100WBC D-Dimer High Sensitivty NG/ML Sodium 138 (135-145) mmol/L Potassium 3.6 (3.3-5.1) mmol/L Chloride 101 (96-108) mmol/L Carbon Dioxide 24 (22-29) mmol/L Anion Gap 17 (12-20) BUN 12 (9-16) mg/dL Creatinine 0.84 (0.5-1.4) mg/dL Estim Creat Clear Calc 85.1 Estimated GFR > 60 Random Glucose 185 H (60-115) mg/dL Calcium 9.4 (8.4-10.2) mg/dL Total Bilirubin 0.5 (0.0-1.0) mg/dL Direct Bilirubin 0.2 (0.0-0.5) mg/dL AST 16 (5-31) U/L ALT 27 (0-31) U/L Alkaline Phosphatase 110 D (39-117) U/L Troponin I High Sens < 3.5 (<3.5-17.0) ng/L Total Protein 6.5 (6.5-8.0) g/dL Albumin 4.3 (3.5-5.0) g/dL Lipase 12 (8-78) U/L COVID-19 ([facility]) (Negative) COVID-19 Clin Com 06/26/21 06/26/21 Range/Units 14:24 20:26 WBC (4.8-10.8) X10*3/uL RBC (4.20-5.50) X10*6/uL Hgb (12.0-16.0) g/dl Hct (37.0-47.0) % MCV (80.0-98.0) fL MCH (27.0-33.0) pg MCHC (31.0-35.0) g/dl RDW (11.0-16.0) % Plt Count (160-400) X10*3/uL MPV (9.4-12.3) fL Immature Gran % (Auto) (0.0-0.4) % Neut % (Auto) (45-73) % Lymph % (Auto) (20-40) % [place] % (Auto) (2-11) % Eos % (Auto) (0-4) % Baso % (Auto) (0-2) % Lymph # (Auto) (1.2-4.9) X10*3/uL [place] # (Auto) (0.1-1.2) X10*3/uL Eos # (Auto) (0.0-0.4) X10*3/uL Baso # (Auto) (0.0-0.2) X10*3/uL Abs Immat Gran (auto) (0.00-0.03) X10*3/uL Absolute Neuts (auto) (2.0-8.3) x10*3/uL Absolute Nucleated RBC (0.0-0.012) X10*3/uL Nucleated RBC % (auto) (0.0-0.2) /100WBC D-Dimer High Sensitivty < 150 NG/ML Sodium (135-145) mmol/L Potassium (3.3-5.1) mmol/L Chloride (96-108) mmol/L Carbon Dioxide (22-29) mmol/L Anion Gap (12-20) BUN (9-16) mg/dL Creatinine (0.5-1.4) mg/dL Estim Creat Clear Calc Estimated GFR Random Glucose (60-115) mg/dL Calcium (8.4-10.2) mg/dL Total Bilirubin (0.0-1.0) mg/dL Direct Bilirubin (0.0-0.5) mg/dL AST (5-31) U/L ALT (0-31) U/L Alkaline Phosphatase (39-117) U/L Troponin I High Sens (<3.5-17.0) ng/L Total Protein (6.5-8.0) g/dL Albumin (3.5-5.0) g/dL Lipase (8-78) U/L COVID-19 ([facility]) Negative (Negative) COVID-19 Clin Com See Note Imaging Data Chest x-ray: Attestation: I personally reviewed and interpreted this imaging study as follows: Radiologist's impression: EXAMINATION: XR CHEST CLINICAL INFORMATION: Cough. COMPARISON: None TECHNIQUE: Frontal view of the chest was obtained. FINDINGS: No significant abnormality is noted involving the heart, lungs, mediastinum, bony thorax or soft tissues. XR/XR chest 1V IMPRESSION: Unremarkable chest exam. ECG Data Attestation: I personally reviewed and interpreted this ECG as follows: ECG interpretation date: 06/26/21 ECG interpretation time: 14:16 Prior ECG tracings: available for review Interpretation: Vent. rate 105 BPM ID interval 138 ms QRS duration 86 ms QT/QTc 320/422 ms P-R-T axes 71 -45 72 Sinus tachycardia Left anterior fascicular block Abnormal ECG When compared with ECG of 10-NOV-2019 21:13, ST now depressed in Lateral leads Discharge Plan Discharge Clinical Impression: Bronchitis Asthma with exacerbation Qualifiers: Asthma severity: moderate Asthma persistence: persistent Qualified Code(s): J45.41 - Moderate persistent asthma with (acute) exacerbation Patient Disposition: Home, Self-Care Instructions: Asthma (ED), Acute Bronchitis (ED) Additional Instructions: You were evaluated for asthma exacerbation and bronchitis. Please take azithromycin as directed. Follow-up with pulmonology. I referred you to Dr. Barone. Please call and request an appointment. Continue to take your albuterol nebulizers and inhalers as directed. Thank you for choosing this emergency department for evaluation. Please follow-up with primary care physician as needed. Return to the emergency department for any new, concerning, or worsening symptoms. Prescriptions: New azithromycin 250 mg tablet 250 mg PO DAILY 4 Days Qty: 4 RF: 0 prednisone 20 mg tablet 60 mg PO DAILY 4 Days Qty: 12 RF: 0 No Action fluticasone propionate 50 mcg/actuation spray,suspension 1 spray intranasal DAILY Qty: 16 RF: 6 (DME) blood sugar diagnostic Strip See Rx Instructions ea Not Applicable QID Qty: 300 RF: 3 (DME) lancets 28 gauge misc See Rx Instructions ea topical QID Qty: 300 RF: 3 ezetimibe 10 mg tablet 10 mg PO DAILY Qty: 90 RF: 2 docusate sodium [Stool Softener] 100 mg capsule 100 mg PO BID Qty: 60 RF: 5 famotidine 40 mg tablet 40 mg PO DAILY Qty: 30 RF: 6 cetirizine 10 mg tablet 10 mg PO DAILY Qty: 30 RF: 4 duloxetine 30 mg capsule,delayed release(DR/EC) 30 mg PO BID Qty: 60 RF: 3 tizanidine 4 mg tablet 4 mg PO TID PRN (Reason: muscle spasticity) Qty: 90 RF: 1 prednisone 20 mg tablet 20 mg PO BID Qty: 10 RF: 0 albuterol sulfate 90 mcg/actuation HFA aerosol inhaler 1 inh inhalation QID PRN (Reason: shortness of breath or wheezing) Qty: 6.7 RF: 0 azithromycin [Zithromax Z-Marcio] 250 mg tablet See Rx Instructions .ROUTE .COMPLEX Qty: 6 RF: 0 clonazepam 1 mg tablet 1 mg PO BID RF: 0 Myrbetriq 25 mg tablet extended release 24 hr 25 mg PO DAILY Qty: 30 RF: 0 ibuprofen 800 mg tablet 800 mg PO BID RF: 0 ipratropium-albuterol 0.5 mg-3 mg(2.5 mg base)/3 mL solution for nebulization 3 ml inhalation Q6H PRN (Reason: muscle spasm) RF: 0 trazodone 150 mg tablet 150 mg PO BEDTIME RF: 0 albuterol sulfate 90 mcg/actuation HFA aerosol inhaler inhalation RF: 0 nicotine 14 mg/24 hr patch 24 hour 1 patch transdermal DAILY 28 Days Qty: 28 RF: 0 fluticasone propion-salmeterol [Advair Diskus] 250-50 mcg/dose blister with device 1 inh inhalation BID Qty: 60 RF: 3 (DME) cane with quad tips See Rx Instructions .Route .MEDSUPPLY Qty: 1 RF: 0 (DME) incontinence pad See Rx Instructions .Route .MEDSUPPLY Qty: 120 RF: 8 gabapentin 400 mg capsule 400 mg PO TID 30 Days Qty: 90 RF: 5 albuterol sulfate [ProAir HFA] 90 mcg/actuation HFA aerosol inhaler 2 puff inhalation Q6H PRN (Reason: shortness of breath or wheezing) Qty: 18 RF: 5 ropinirole 0.5 mg tablet 0.5 mg PO BEDTIME Qty: 90 RF: 2 meclizine 12.5 mg tablet 12.5 mg PO DAILY PRN (Reason: dizziness) Qty: 20 RF: 1 benzonatate 100 mg capsule 100 mg PO TID PRN (Reason: cough) Qty: 30 RF: 0 cholecalciferol (vitamin D3) 25 mcg (1,000 unit) tablet 25 mcg PO DAILY Qty: 30 RF: 5 cyanocobalamin (vitamin B-12) 500 mcg tablet,disintegrating 500 mcg sublingual DAILY Qty: 30 RF: 11 Tresiba FlexTouch U-100 100 unit/mL (3 mL) insulin pen 18 unit subcut BEDTIME 90 Days Qty: 30 RF: 1 metformin 750 mg tablet extended release 24 hr 750 mg PO BID 90 Days Qty: 180 RF: 1 (DME) pen needle, diabetic [BD Vanessa 2nd Gen Pen Needle] 32 gauge x 5/32 needle See Rx Instructions .MEDSUPPLY Qty: 50 RF: 4 Trulicity 3 mg/0.5 mL pen injector 3 mg subcut QWEEK 30 Days Qty: 2.5 RF: 6 Referrals: Carlos Barone MD [Physician] - 2 days (Poorly controlled asthma ) Interventions: ED Discharge Assessment Last Done: 06/26/21 21:27 Discharge Date/Time: 06/26/21 21:28
[2021-06-26 19:52] VITALS: BP 127/61; PULSE 82; RESP 16; TEMP 36.7; O2SAT 95
[2021-06-26 20:46] LABS: D Dimer High Sensitivity < 150 NG/ML
[2021-06-26] MEDS: Azithromycin 500 MG TABLET PO (21:24)
[2021-06-26] MEDS: predniSONE 20 MG TABLET 60 MG PO (21:24)
== END 2021-06-26 21:28 | disposition home or self-care (01) ==
PROVIDERS: Nurse Practitioner Family; Emergency Provider Internal Medicine; PCP Internal Medicine
DX: J45.41 Moderate persistent asthma with (acute) exacerbation (principal); J40 Bronchitis, not specified as acute or chronic; E11.9 Type 2 diabetes mellitus without complications; F17.210 Nicotine dependence, cigarettes, uncomplicated; Z20.822 Contact with and (suspected) exposure to COVID-19
CPT/HCPCS: 36415; 71045; 80048; 80076; 83690; 84484; 85025; 85379; 87635; 93005; 99283; 99284

== ENCOUNTER 2021-07-04 05:24 | Emergency (ER) | payer OTHER, SELFPAY ==
--- NOTE | ~2021-07-04 | XR_ITS ---
EXAMINATION: XR CHEST CLINICAL INFORMATION: Cough COMPARISON: Previous chest x-ray 06/26/2021 TECHNIQUE: Frontal view of the chest was obtained. FINDINGS: No significant abnormality is noted involving the heart, lungs, mediastinum, bony thorax or soft tissues. XR/XR chest 1V IMPRESSION: Unremarkable examination.
[2021-07-04 05:42] VITALS: BP 137/79; PULSE 100; RESP 24; TEMP 37.2; O2SAT 99; BMI 32.9
[2021-07-04 06:17] LABS: COVID-19 Test Negative (Negative); IDNOW Serial# 9DD0AD1C
--- NOTE | 2021-07-04 06:29 | ED_ITS ---
HPI - General Adult General Chief complaint: Headache Stated complaint: cold sweats, dry tongue Time Seen by Provider: 07/04/21 05:37 Source: patient Mode of arrival: ambulatory History of Present Illness HPI narrative: 50-year-old female comes in with complaints of headache, subjective fevers, chills, body aches, and loss of taste. She denies any COVID- 19 vaccination and denies any sick contacts and otherwise denies any shortness of breath or chest pain/palpitations pain Related Data Home Medications Medication Instructions Recorded Confirmed clonazepam 1 mg tablet 1 mg PO BID 04/28/20 06/09/21 albuterol sulfate 90 mcg/actuation INHALATION 05/05/20 06/09/21 aerosol inhaler trazodone 150 mg tablet 150 mg PO BEDTIME 05/05/20 06/09/21 ibuprofen 800 mg tablet 800 mg PO BID 06/05/20 06/09/21 ipratropium 0.5 mg-albuterol 3 mg 3 ml INHALATION Q6H PRN 06/05/20 06/09/21 (2.5 mg base)/3 mL nebulization soln Previous Rx's Medication Instructions Recorded fluticasone propionate 50 1 spray INTRANASAL DAILY #16 cap 06/20/20 mcg/actuation nasal spray,suspension blood sugar diagnostic #300 ea 09/24/20 lancets 28 gauge #300 ea 09/24/20 mirabegron 25 mg tablet,extended 25 mg PO DAILY #30 tab 10/06/20 release 24 hr (Myrbetriq) ezetimibe 10 mg tablet 10 mg PO DAILY #90 cap 10/20/20 cholecalciferol (vitamin D3) 25 25 mcg PO DAILY #30 cap 12/24/20 mcg (1,000 unit) tablet cyanocobalamin (vitamin B-12) 500 500 mcg SUBLINGUAL DAILY #30 cap 12/24/20 mcg disintegrating tablet,sublingual dulaglutide 3 mg/0.5 mL 3 mg (0.5 mL) SUBCUT QWEEK 30 Days 12/24/20 subcutaneous pen injector #2.5 ml (Trulicity) insulin degludec 100 unit/mL (3 18 unit (0.18 mL) SUBCUT BEDTIME 12/24/20 mL) subcutaneous pen (Tresiba 90 Days #30 ml FlexTouch U-100 insulin) metformin 750 mg tablet,extended 750 mg PO BID 90 Days #180 tab 12/24/20 release 24 hr pen needle, diabetic 32 gauge x #50 ea 12/24/20 (BD Vanessa 2nd Gen Pen Needle) incontinence pad #120 ea 01/28/21 albuterol sulfate 90 mcg/actuation 2 puff INHALATION Q6H PRN #18 g 01/28/21 aerosol inhaler (ProAir HFA) cane with quad tips #1 ea 01/28/21 gabapentin 400 mg capsule 400 mg PO TID 30 Days #90 cap 01/28/21 ropinirole 0.5 mg tablet 0.5 mg PO BEDTIME #90 cap 01/28/21 famotidine 40 mg tablet 40 mg PO DAILY #30 cap 02/20/21 cetirizine 10 mg tablet 10 mg PO DAILY #30 tab 04/23/21 meclizine 12.5 mg tablet 12.5 mg PO DAILY PRN #20 tab 04/25/21 benzonatate 100 mg capsule 100 mg PO TID PRN #30 cap 06/03/21 duloxetine 30 mg capsule,delayed 30 mg PO BID #60 cap 06/08/21 release tizanidine 4 mg tablet 4 mg PO TID PRN #90 tab 06/08/21 fluticasone 250 mcg-salmeterol 50 1 inh INHALATION BID #60 ea 06/09/21 mcg/dose blistr powdr for inhalation (Advair Diskus) nicotine 14 mg/24 hr daily 1 patch TRANSDERMAL DAILY 28 Days 06/09/21 transdermal patch #28 ea albuterol sulfate 90 mcg/actuation 1 inh INHALATION QID PRN #6.7 g 06/21/21 aerosol inhaler azithromycin 250 mg tablet See Rx Instructions .ROUTE 06/21/21 (Zithromax Z-Marcio) .COMPLEX #6 tab prednisone 20 mg tablet 20 mg PO BID #10 tab 06/21/21 azithromycin 250 mg tablet 250 mg PO DAILY 4 Days #4 tab 06/26/21 prednisone 20 mg tablet 60 mg PO DAILY 4 Days #12 tab 06/26/21 docusate sodium 100 mg capsule 100 mg PO BID #60 cap 06/30/21 (Stool Softener) Allergies Allergy/AdvReac Type Severity Reaction Status Date / Time latex [LATEX] Allergy Mild HIVES/RASH Verified 06/09/21 08:57 aspirin Allergy Unknown rash Verified 06/09/21 08:57 amoxicillin AdvReac Unknown diarrhea Verified 06/09/21 08:57 Beef Containing Products AdvReac Unknown DIARRHEA/VO Verified 06/09/21 08:57 MITING [employer] Allergy Unknown inflammation Uncoded 06/03/21 15:10 and swelling Review of Systems Review of Systems: Pertinent positives and negatives as stated in HPI 10 point review of systems is otherwise negative. [facility] Past Medical History Source: nursing notes reviewed Medical History Allergic rhinitis Anxiety Arthritis Asthma B12 deficiency Cigarette smoker motivated to quit Colon cancer screening COVID-19 vaccination declined Decreased hearing of right ear Depression Depression with anxiety Diabetes Dyslipidemia Fibromyalgia GERD (gastroesophageal reflux disease) Mild intermittent asthma Mixed stress and urge incontinence Neuropathy Non-toxic multinodular goiter Obesity (BMI 30-39.9) Restless leg syndrome Tinnitus of right ear Type 2 diabetes mellitus with microalbuminuria, with long-term current use of insulin Vertigo Surgical History History of bilateral oophorectomy History of hysterectomy Hx of appendectomy Hx of section Hx of cholecystectomy Family History Family History Father Diabetes mellitus Heart murmur Mother Diabetes mellitus HTN (hypertension) Glaucoma Social History Social History Housing: Apartment Alcohol intake: never Patient Tobacco Use Status: Current everyday Tobacco user Tobacco use type: Cigarette Cigarettes Per Day: 5 Years Smoked: 34 e-Cigarette/Vaping Use: Never Used Advance Directives: No Advance Directives Information Provided: Yes Patient : No Current occupational status: unemployed Sexual orientation: Straight/Heterosexual Gender identity: Female Physical Exam Vital Signs: Vital Signs: Last Vital Signs Temp 99 F 07/04/21 05:42 Pulse 100 07/04/21 05:42 Resp 24 H 07/04/21 05:42 BP 137/79 07/04/21 05:42 Pulse Ox 99 07/04/21 05:42 BMI result Body Mass Index 32.9 VITAL SIGNS: Reviewed. GENERAL: Well developed, well nourished, in no acute distress. HEAD: Normocephalic/atraumatic EYES: PERRLA, EOMI EARS: Ext canals without abnormality, TMs non-bulging and non-erythematous NOSE: Nares patent bilateral OROPHARYNX: no oral lesions noted, posterior pharynx erythema without noted tonsillar enlargement/erythema/exudates NECK: Supple, no adenopathy LUNGS: Normal breath sounds, no wheeze/rhonchi/rales, no increased work of breathing. SpO2<99> CARDIOVASCULAR: Regular rate and rhythm without noted murmurs ABDOMEN: Soft, non-tender, non-distended with bowel sounds. MUSCULOSKELETAL: No tenderness, deformities, or effusions noted on gross inspection. EXTREMITIES: No cyanosis, clubbing or edema. SKIN: Inspection of the skin reveals no rashes NEUROLOGIC: Alert and oriented x 4. Strength and sensation to light touch were grossly intact x 4. Course Course Course Narrative: 50-year-old female with history and clinical presentation consistent with viral syndrome. Patient received combination analgesics. On review of all investigations there are no acute findings and patient on re- evaluation states she is feeling much better and is otherwise stable for discharge to home. Medical Decision Making Lab Data Labs: Lab Results 07/04/21 07/04/21 Range/Units 05:56 06:53 POC Glucose 91 (60-115) mg/dL COVID-19 (RONALDO) Negative (Negative) COVID-19 Clin Com See Note Discharge Plan Discharge Clinical Impression: Viral syndrome Patient Disposition: Home, Self-Care Instructions: Viral Syndrome (ED) Additional Instructions: 1. Reanude todos los medicamentos caseros seg?n lo prescrito. 2. Karma un seguimiento con roberto proveedor de atenci?n primaria el . Recomendar ibuprofeno de Tylenol de venta day seg?n sea necesario para los neelam corporales y las temperaturas superiores a 100. Regrese a la yolanda de emergencias si los s?ntomas empeoran. Prescriptions: No Action fluticasone propionate 50 mcg/actuation spray,suspension 1 spray intranasal DAILY Qty: 16 RF: 6 (DME) blood sugar diagnostic Strip See Rx Instructions ea Not Applicable QID Qty: 300 RF: 3 (DME) lancets 28 gauge misc See Rx Instructions ea topical QID Qty: 300 RF: 3 ezetimibe 10 mg tablet 10 mg PO DAILY Qty: 90 RF: 2 famotidine 40 mg tablet 40 mg PO DAILY Qty: 30 RF: 6 cetirizine 10 mg tablet 10 mg PO DAILY Qty: 30 RF: 4 duloxetine 30 mg capsule,delayed release(DR/EC) 30 mg PO BID Qty: 60 RF: 3 tizanidine 4 mg tablet 4 mg PO TID PRN (Reason: muscle spasticity) Qty: 90 RF: 1 docusate sodium [Stool Softener] 100 mg capsule 100 mg PO BID Qty: 60 RF: 5 prednisone 20 mg tablet 20 mg PO BID Qty: 10 RF: 0 albuterol sulfate 90 mcg/actuation HFA aerosol inhaler 1 inh inhalation QID PRN (Reason: shortness of breath or wheezing) Qty: 6.7 RF: 0 azithromycin [Zithromax Z-Marcio] 250 mg tablet See Rx Instructions .ROUTE .COMPLEX Qty: 6 RF: 0 azithromycin 250 mg tablet 250 mg PO DAILY 4 Days Qty: 4 RF: 0 prednisone 20 mg tablet 60 mg PO DAILY 4 Days Qty: 12 RF: 0 clonazepam 1 mg tablet 1 mg PO BID RF: 0 Myrbetriq 25 mg tablet extended release 24 hr 25 mg PO DAILY Qty: 30 RF: 0 ibuprofen 800 mg tablet 800 mg PO BID RF: 0 ipratropium-albuterol 0.5 mg-3 mg(2.5 mg base)/3 mL solution for nebulization 3 ml inhalation Q6H PRN (Reason: muscle spasm) RF: 0 trazodone 150 mg tablet 150 mg PO BEDTIME RF: 0 albuterol sulfate 90 mcg/actuation HFA aerosol inhaler inhalation RF: 0 nicotine 14 mg/24 hr patch 24 hour 1 patch transdermal DAILY 28 Days Qty: 28 RF: 0 fluticasone propion-salmeterol [Advair Diskus] 250-50 mcg/dose blister with device 1 inh inhalation BID Qty: 60 RF: 3 (DME) cane with quad tips See Rx Instructions .Route .MEDSUPPLY Qty: 1 RF: 0 (DME) incontinence pad See Rx Instructions .Route .MEDSUPPLY Qty: 120 RF: 8 gabapentin 400 mg capsule 400 mg PO TID 30 Days Qty: 90 RF: 5 albuterol sulfate [ProAir HFA] 90 mcg/actuation HFA aerosol inhaler 2 puff inhalation Q6H PRN (Reason: shortness of breath or wheezing) Qty: 18 RF: 5 ropinirole 0.5 mg tablet 0.5 mg PO BEDTIME Qty: 90 RF: 2 meclizine 12.5 mg tablet 12.5 mg PO DAILY PRN (Reason: dizziness) Qty: 20 RF: 1 benzonatate 100 mg capsule 100 mg PO TID PRN (Reason: cough) Qty: 30 RF: 0 cholecalciferol (vitamin D3) 25 mcg (1,000 unit) tablet 25 mcg PO DAILY Qty: 30 RF: 5 cyanocobalamin (vitamin B-12) 500 mcg tablet,disintegrating 500 mcg sublingual DAILY Qty: 30 RF: 11 Tresiba FlexTouch U-100 100 unit/mL (3 mL) insulin pen 18 unit subcut BEDTIME 90 Days Qty: 30 RF: 1 metformin 750 mg tablet extended release 24 hr 750 mg PO BID 90 Days Qty: 180 RF: 1 (DME) pen needle, diabetic [BD Vanessa 2nd Gen Pen Needle] 32 gauge x 5/32 needle See Rx Instructions .MEDSUPPLY Qty: 50 RF: 4 Trulicity 3 mg/0.5 mL pen injector 3 mg subcut QWEEK 30 Days Qty: 2.5 RF: 6 Referrals: Mali Nova MD [Primary Care Provider] - 2 days Print Language: Kittitian
[2021-07-04] MEDS: Acetaminophen 325 MG TABLET 975 MG PO (06:38)
[2021-07-04 06:57] LABS: Glucose, Whole Blood 91 mg/dL (60-115)
[2021-07-04 08:38] VITALS: BP 114/79; PULSE 91; RESP 18; TEMP 36.8; O2SAT 96
--- NOTE | 2021-07-04 08:45 | PC.NURSE ---
Pt states headache has improved./ Wants more for pain script but will try to continue with tylenol/motrin. skin pwd. no neuro deficits. no N/V. will f/uw ith PCP./
== END 2021-07-04 08:45 | disposition home or self-care (01) ==
PROVIDERS: Emergency Provider Student in an Organized Health Care Education/Training Program; PCP Internal Medicine
DX: B34.9 Viral infection, unspecified (principal); Z20.822 Contact with and (suspected) exposure to COVID-19; R50.9 Fever, unspecified; M79.10 Myalgia, unspecified site; R43.9 Unspecified disturbances of smell and taste; E11.9 Type 2 diabetes mellitus without complications; E78.5 Hyperlipidemia, unspecified; F17.200 Nicotine dependence, unspecified, uncomplicated; Z79.4 Long term (current) use of insulin; Z79.899 Other long term (current) drug therapy
CPT/HCPCS: 36415; 71045; 82947; 87635; 99283; 99285

== ENCOUNTER → 2021-07-20 13:34 | Outpatient (BNVA) | payer OTHER, SELFPAY | PROVIDERS: PCP Internal Medicine; Referring Provider Internal Medicine; Visit Provider Nurse Practitioner Family | DX: K21.9 Gastro-esophageal reflux disease without esophagitis (principal); K58.2 Mixed irritable bowel syndrome; R19.7 Diarrhea, unspecified | CPT/HCPCS: 99212 ==

== ENCOUNTER 2021-07-21 07:42 | Outpatient (REF) | payer OTHER, SELFPAY | END 2021-07-21 07:43 | disposition home or self-care (01) | LOC: HO.LNP 07:42 | PROVIDERS: Visit Provider Nurse Practitioner Family | DX: K21.9 Gastro-esophageal reflux disease without esophagitis (principal); E04.2 Nontoxic multinodular goiter | CPT/HCPCS: 87338 ==

== ENCOUNTER → 2021-08-19 13:30 | Outpatient (BNVA) | payer OTHER, SELFPAY | PROVIDERS: PCP Internal Medicine; Referring Provider Internal Medicine; Visit Provider Nurse Practitioner Family | DX: Z12.11 Encounter for screening for malignant neoplasm of colon (principal); K21.9 Gastro-esophageal reflux disease without esophagitis; K58.0 Irritable bowel syndrome with diarrhea; R19.7 Diarrhea, unspecified | CPT/HCPCS: 99212 ==

== ENCOUNTER 2021-10-21 12:03 | Emergency (ER) | payer OTHER, SELFPAY ==
--- NOTE | 2021-10-21 | ECG_ITS ---
Test Reason : TACHYCARDIA Blood Pressure : / mmHG Vent. Rate : 105 BPM Atrial Rate : 105 BPM P-R Int : 136 ms QRS Dur : 102 ms QT Int : 330 ms P-R-T Axes : 052 -41 052 degrees QTc Int : 436 ms Sinus tachycardia Left axis deviation Incomplete right bundle branch block Abnormal ECG When compared with ECG of 26-JUN-2021 14:16, No significant change was found Referred By: Generic ED Physician Electronically Signed By:KVNG HERNANDES
--- NOTE | ~2021-10-21 | CT_ITS ---
EXAMINATION: CT ABDOMEN AND PELVIS WITH CONTRAST CLINICAL INFORMATION: Abdomen pain, emesis, and diarrhea COMPARISON: CT abdomen pelvis 11/21/2020 TECHNIQUE: Multidetector volumetric images were obtained from the superior aspect of the liver through the pubic symphysis following administration 85 mL of Omnipaque 350 intravenous contrast. Sagittal and coronal reformatted images were obtained on the technologist's workstation. Oral contrast: No This CT examination was performed using dose optimization techniques as appropriate, variously including the following: *Automated exposure control *Adjustment of mA and/or kV according to patient size (this includes techniques or standardized protocols for targeted exams where dose is matched to indication/reason for exam; i.e. extremities or head) *Use of iterative reconstruction technique DLP: 675 mGy-cm FINDINGS: LUNG BASES: The visualized lung bases are unremarkable. LIVER, GALLBLADDER, AND BILIARY TREE: The liver is normal in size, shape, and attenuation. No focal hepatic lesion or biliary ductal dilatation is present. Status post cholecystectomy. PANCREAS: Unremarkable. SPLEEN: Unremarkable. ADRENAL GLANDS: Unremarkable. KIDNEYS AND URETERS: The kidneys are normal in size, shape, and attenuation. No hydronephrosis, hydroureter, or calculi seen. No perinephric stranding. BLADDER: Unremarkable. GASTROINTESTINAL TRACT: The small and large bowel are unremarkable. The appendix is not seen. ABDOMINAL WALL: No significant hernia is appreciated. LYMPH NODES: Normal. VASCULAR: Unremarkable. PELVIC VISCERA: An anteverted uterus is present with multiple fibroids some of which contain calcification. There is a pedunculated subserosal fibroid present on the ventral surface uterus near the fundus measuring 2.4 cm in diameter. OSSEOUS STRUCTURES: Unremarkable. CT/CT abdomen pelvis w con IMPRESSION: A cause for the patient's abdominal pain, emesis and diarrhea is not found. Incidental note made of cholecystectomy, colonic diverticulosis without diverticulitis and uterine fibroids. Fleischner guidelines were followed.
[2021-10-21 12:13] VITALS: BP 159/66; PULSE 123; RESP 22; TEMP 37.1; O2SAT 98; BMI 33.4
[2021-10-21 12:37] LABS: MANUAL DIFF FLAG NO
[2021-10-21 12:40] LABS: Basophils Absolute Auto 0.1 X10*3/uL (0.0-0.2); Basophils Percent Auto 0.8 % (0-2); Eosinophils Absolute Auto 0.1 X10*3/uL (0.0-0.4); Eosinophils Percent Auto 1.4 % (0-4); Hematocrit 40.9 % (37.0-47.0); Hemoglobin 14.5 g/dl (12.0-16.0); Imm Gran Abs Auto 0.02 X10*3/uL (0.00-0.03); Imm Gran Pct Auto 0.2 % (0.0-0.4); Lymphocytes Absolute Auto 3.5 X10*3/uL (1.2-4.9); Lymphocytes Percent Auto 38.7 % (20-40); Mean Corpuscular HGB Conc 35.5 g/dl (31.0-35.0); Mean Corpuscular Hemoglobin 32.2 pg (27.0-33.0); Mean Corpuscular Volume 90.7 fL (80.0-98.0); Mean Platelet Volume 9.5 fL (9.4-12.3); Monocytes Absolute Auto 0.5 X10*3/uL (0.1-1.2); Monocytes Percent Auto 5.7 % (2-11); Neutrophils Absolute Auto 4.8 x10*3/uL (2.0-8.3); Neutrophils Percent Auto 53.2 % (45-73); Platelet Count 347 X10*3/uL (160-400); Red Blood Count 4.51 X10*6/uL (4.20-5.50); Red Cell Distribution Width 12.1 % (11.0-16.0); White Blood Count 9.1 X10*3/uL (4.8-10.8)
[2021-10-21 13:00] LABS: Alanine Aminotransferase 20 U/L (0-31); Albumin Level 4.8 g/dL (3.5-5.0); Alkaline Phosphatase 124 U/L (39-117); Anion Gap 9 (12-20); Aspartate Amino Transferase 17 U/L (5-31); Bilirubin Total 0.7 mg/dL (0.0-1.0); Blood Urea Nitrogen 9 mg/dL (9-16); Carbon Dioxide 29 mmol/L (22-29); Chloride 104 mmol/L (96-108); Creatinine Clr Calc Pharmacy 86.3; Estimated Glomerular Filt Rate > 60; Glucose Random 90 mg/dL (60-115); Potassium 4.2 mmol/L (3.3-5.1); Sodium 138 mmol/L (135-145); Total Protein 7.1 g/dL (6.5-8.0)
[2021-10-21 15:56] VITALS: BP 119/76; PULSE 94; RESP 18; TEMP 36.7; O2SAT 98
[2021-10-21 16:05] LABS: Glucose, Whole Blood 74 mg/dL (60-115)
[2021-10-21 16:43] LABS: Lipase 22 U/L (8-78)
[2021-10-21 16:52] LABS: Troponin-I High Sensitivity < 3.5 ng/L (<3.5-17.0)
[2021-10-21] MEDS: Famotidine/PF 20 MG/2 ML VIAL IVPUSH (16:56)
[2021-10-21] MEDS: Lidocaine HCl Viscous 2 % 15 ML SOLUTION MUCOUS MEM (16:57)
[2021-10-21] MEDS: Magnesium Hydrox/Alum Hydrox 30 ML ORAL.SUSP PO (16:57)
[2021-10-21 17:10] LABS: Troponin-I High Sensitivity < 3.5 ng/L (<3.5-17.0)
[2021-10-21 18:00] LABS: Influenza A Negative (Negative); Influenza B2 Negative (Negative)
[2021-10-21 18:01] LABS: COVID-19 Test Negative (Negative)
[2021-10-21] MEDS: iohexoL 350 MG/ML 100 ML INFUS..BTL IV (18:08)
--- NOTE | 2021-10-21 18:25 | ED.GENADULT ---
HPI - General Adult General Chief complaint: Nausea/Vomiting/Diarrhea Stated complaint: Gastritis/Diarrhea Time Seen by Provider: 10/21/21 16:10 Source: patient Mode of arrival: ambulatory Limitations: no limitations History of Present Illness HPI narrative: 51-year-old female presents to ED for abdominal pain and diarrhea for 1 week. Patient describes abdominal pain as acid burning epigastric and lower abdominal cramping pain. Patient states she was prescribed sucralfate and omeprazole with no relief. Patient denies any blood in stool. Patient denies any recent hospital admission or any new antibiotics. Patient states no recent travel, chest pain, shortness of breath, fever, or chills. Patient denies any genitourinary symptoms. Related Data Home Medications Medication Instructions Recorded Confirmed clonazepam 1 mg tablet 1 mg PO BID 04/28/20 10/17/21 albuterol sulfate 90 mcg/actuation INHALATION 05/05/20 10/17/21 aerosol inhaler ipratropium 0.5 mg-albuterol 3 mg 3 ml INHALATION Q6H PRN 06/05/20 10/17/21 (2.5 mg base)/3 mL nebulization soln nicotine 14 mg/24 hr daily 1 patch TOPICAL DAILY 07/20/21 10/17/21 transdermal patch zolpidem 10 mg tablet 10 mg PO BEDTIME PRN 07/20/21 10/17/21 docusate sodium 100 mg capsule 100 mg PO BID 08/19/21 10/17/21 loperamide 2 mg capsule 2 mg PO BEDTIME 08/19/21 10/17/21 Previous Rx's Medication Instructions Recorded fluticasone propionate 50 1 spray INTRANASAL DAILY #16 cap 06/20/20 mcg/actuation nasal spray,suspension blood sugar diagnostic #300 ea 09/24/20 lancets 28 gauge #300 ea 09/24/20 mirabegron 25 mg tablet,extended 25 mg PO DAILY #30 tab 10/06/20 release 24 hr (Myrbetriq) cyanocobalamin (vitamin B-12) 500 500 mcg SUBLINGUAL DAILY #30 cap 12/24/20 mcg disintegrating tablet,sublingual insulin degludec 100 unit/mL (3 18 unit (0.18 mL) SUBCUT BEDTIME 12/24/20 mL) subcutaneous pen (Tresiba 90 Days #30 ml FlexTouch U-100 insulin) incontinence pad #120 ea 07/07/21 albuterol sulfate 90 mcg/actuation 2 puff INHALATION Q6H PRN #18 g 01/28/21 aerosol inhaler (ProAir HFA) cane with quad tips #1 ea 01/28/21 ropinirole 0.5 mg tablet 0.5 mg PO BEDTIME #90 cap 01/28/21 meclizine 12.5 mg tablet 12.5 mg PO DAILY PRN #20 tab 04/25/21 albuterol sulfate 90 mcg/actuation 1 inh INHALATION QID PRN #6.7 g 06/21/21 aerosol inhaler cholecalciferol (vitamin D3) 25 25 mcg PO DAILY #30 cap 07/07/21 mcg (1,000 unit) tablet dulaglutide 3 mg/0.5 mL 3 mg (0.5 mL) SUBCUT QWEEK 30 Days 07/07/21 subcutaneous pen injector #2.5 ml (Trulicity) ibuprofen 800 mg tablet 800 mg PO BID PRN #60 tab 07/07/21 metformin 750 mg tablet,extended 750 mg PO BID 90 Days #180 tab 07/07/21 release 24 hr nicotine 7 mg/24 hr daily 1 patch TRANSDERMAL Q24H #28 ea 07/07/21 transdermal patch fluconazole 150 mg tablet 150 mg PO QWEEK #2 tab 07/16/21 (Diflucan) nystatin 100,000 unit/gram topical 1 appl TOPICAL BID 14 Days #60 g 07/16/21 powder ezetimibe 10 mg tablet 10 mg PO DAILY #90 cap 08/07/21 bisacodyl 5 mg tablet,delayed 10 mg PO ONCE 1 Days #2 tab 08/19/21 release (Dulcolax (bisacodyl)) cholestyramine-aspartame 4 gram 4 g PO BID #210 g 08/19/21 oral powder (Cholestyramine Light) methylcellulose (laxative) 500 mg 500 mg PO DAILY #30 tab 08/19/21 tablet (Citrucel) polyethylene glycol 3350 17 238 g PO ONCE #238 g 08/19/21 gram/dose oral powder (Miralax) gabapentin 400 mg capsule 400 mg PO TID 30 Days #90 cap 09/01/21 cetirizine 10 mg tablet 10 mg PO DAILY #90 tab 09/28/21 duloxetine 30 mg capsule,delayed 30 mg PO BID #180 cap 09/28/21 release famotidine 40 mg tablet 40 mg PO DAILY #90 cap 09/28/21 fluticasone 250 mcg-salmeterol 50 1 inh INHALATION BID #180 ea 09/28/21 mcg/dose blistr powdr for inhalation (Advair Diskus) pen needle, diabetic 32 gauge x #50 ea 09/29/21 5/32 (BD Vanessa 2nd Gen Pen Needle) tizanidine 4 mg tablet 4 mg PO TID PRN #90 tab 09/29/21 omeprazole 20 mg capsule,delayed 20 mg PO DAILY PRN #14 cap 10/17/21 release sucralfate 1 gram tablet 1 g PO BID 14 Days #28 tab 10/17/21 Allergies Allergy/AdvReac Type Severity Reaction Status Date / Time aspirin Allergy Intermediate rash Verified 10/17/21 11:41 latex [LATEX] Allergy Mild HIVES/RASH Verified 10/17/21 11:41 Penicillins Allergy Mild unknown Verified 10/17/21 11:41 amoxicillin AdvReac Intermediate diarrhea Verified 10/17/21 11:41 Beef Containing Products AdvReac Intermediate DIARRHEA/VO Verified 10/17/21 11:41 MITING [employer] Allergy Intermediate inflammation Uncoded 10/17/21 11:41 and swelling Review of Systems Review of Systems: Epigastric acid burning sensation. Lower abdominal cramping sensation and diarrhea. Yes all other systems are reviewed and are negative [facility] Past Medical History Medical History Allergic rhinitis Anxiety Arthritis Asthma B12 deficiency Cigarette smoker motivated to quit COVID-19 vaccination declined Decreased hearing of right ear Depression with anxiety Diabetes Dyslipidemia Fibromyalgia GERD (gastroesophageal reflux disease) Mild intermittent asthma Mixed stress and urge incontinence Non-toxic multinodular goiter Obesity (BMI 30-39.9) Restless leg syndrome Tinnitus of right ear Type 2 diabetes mellitus with microalbuminuria, with long-term current use of insulin Vertigo Surgical History History of bilateral oophorectomy History of esophagogastroduodenoscopy (EGD) History of hysterectomy Hx of appendectomy Hx of section Hx of cholecystectomy Hx of colonoscopy Hx of laparoscopy Family History Family History Father Diabetes mellitus Heart murmur Mother Diabetes mellitus HTN (hypertension) Glaucoma Social History Social History Housing: Apartment Alcohol intake: never Patient Tobacco Use Status: Current everyday Tobacco user Tobacco use type: Cigarette Cigarettes Per Day: 5 Years Smoked: 34 e-Cigarette/Vaping Use: Never Used Current occupational status: unemployed Sexual orientation: Straight/Heterosexual Gender identity: Female Physical Exam ED Vital Signs: Vital Signs - 24 hr 10/21/21 12:13 10/21/21 15:56 Temperature 98.8 F 98.1 F Pulse Rate 123 H 94 Respiratory Rate 22 H 18 Blood Pressure 159/66 H 119/76 Pulse Oximetry 98 98 BMI result Body Mass Index 33.4 Const General: cooperative, healthy appearing, comfortable, no acute distress, well developed, alert, awake and Physically active Orientation/consciousness: patient oriented x3 HENMT Head: Yes normal to inspection, Yes No palpable skull fracture present, Yes normocephalic and Yes atraumatic Eyes General: appearance normal, both eyes and all related structures Neck Neck: Yes normal visual inspection, Yes full ROM, Yes no lymphadenopathy, Yes no meningeal signs, Yes trachea midline, Yes supple, No anterior neck swelling and No tender Chest Chest palpation & inspection: normal inspection of the chest and normal palpation of entire chest wall Resp Effort & Inspection: normal respiratory effort and able to speak in complete sentences Auscultation: clear to auscultation bilaterally Cardio Jugular venous distension: no JVD Heart sounds: S1 normal heart sound present and S2 normal heart sound present GI Inspection: Yes normal to inspection and No abdominal wall ecchymosis Palpation (GI): Tenderness to palpation present (GI) in the epigastrum, in the LLQ and in the RLQ, no guarding and not rigid General: No CVA tenderness and Yes no CVA tenderness Back/Spine/Pelvis Back: no CVA tenderness, No CVA tenderness and No back tenderness Skin General skin exam: no rashes or lesions noted and elasticity normal Neuro General: patient oriented x3, gait normal, no meningeal signs and CN's II-XI intact bilaterally Cranial nerves: Yes CN's II-XII intact bilaterally Extrem General: Yes normal to inspection and Yes full ROM Psych Appearance: grossly normal, well kempt and not disheveled Course Course Course Narrative: EKG labs, troponin, abdominal CT scan ordered. Reevaluation(s) Reevaluation #1: Troponin negative after having epigastric acid burning sensation for 1 week. COVID/influenza swab is negative. Negative for any elevated white blood cell count. Waiting for urine and CT scan results. Time: 18:29 Reevaluation #2: Patient's CT scan urinalysis is normal. Patient to be discharged. Time: 19:11 Medical Decision Making MDM Narrative Medical decision making narrative: GERD. Gastroenteritis Lab Data Result diagrams: 10/21/21 12:25 10/21/21 12:25 Labs: Lab Results 10/21/21 10/21/21 10/21/21 Range/Units 12:25 12:25 12:25 WBC 9.1 (4.8-10.8) X10*3/uL RBC 4.51 (4.20-5.50) X10*6/uL Hgb 14.5 (12.0-16.0) g/dl Hct 40.9 (37.0-47.0) % MCV 90.7 (80.0-98.0) fL MCH 32.2 (27.0-33.0) pg MCHC 35.5 H (31.0-35.0) g/dl RDW 12.1 (11.0-16.0) % Plt Count 347 (160-400) X10*3/uL MPV 9.5 (9.4-12.3) fL Immature Gran % (Auto) 0.2 (0.0-0.4) % Neut % (Auto) 53.2 (45-73) % Lymph % (Auto) 38.7 (20-40) % [place] % (Auto) 5.7 (2-11) % Eos % (Auto) 1.4 (0-4) % Baso % (Auto) 0.8 (0-2) % Lymph # (Auto) 3.5 (1.2-4.9) X10*3/uL [place] # (Auto) 0.5 (0.1-1.2) X10*3/uL Eos # (Auto) 0.1 (0.0-0.4) X10*3/uL Baso # (Auto) 0.1 (0.0-0.2) X10*3/uL Abs Immat Gran (auto) 0.02 (0.00-0.03) X10*3/uL Absolute Neuts (auto) 4.8 (2.0-8.3) x10*3/uL Absolute Nucleated RBC 0.000 (0.0-0.012) X10*3/uL Nucleated RBC % (auto) 0.0 (0.0-0.2) /100WBC Sodium 138 (135-145) mmol/L Potassium 4.2 (3.3-5.1) mmol/L Chloride 104 (96-108) mmol/L Carbon Dioxide 29 (22-29) mmol/L Anion Gap 9 L (12-20) BUN 9 (9-16) mg/dL Creatinine 0.83 (0.5-1.4) mg/dL Estim Creat Clear Calc 86.3 Estimated GFR > 60 POC Glucose (60-115) mg/dL Random Glucose 90 (60-115) mg/dL Calcium 10.0 D (8.4-10.2) mg/dL Total Bilirubin 0.7 (0.0-1.0) mg/dL AST 17 (5-31) U/L ALT 20 (0-31) U/L Alkaline Phosphatase 124 H (39-117) U/L Troponin I High Sens < 3.5 (<3.5-17.0) ng/L Total Protein 7.1 (6.5-8.0) g/dL Albumin 4.8 (3.5-5.0) g/dL Lipase 22 (8-78) U/L Urine Color Urine Appearance Urine pH Ur Specific [place] Urine Protein Urine Glucose (UA) Urine Ketones Urine Blood Urine Nitrite Ur Leukocyte Esterase Urine RBC Urine WBC Urine WBC Clumps Ur Squamous Epith Cells Ur Renal Epithelial Cell [place] Biurate Crystals Calcium Carbonate Cryst Calcium Phosphate Cryst Calcium Oxalate Crystal Leucine Crystals Cystine Crystals Uric Acid Crystals Triple Phos Crystals Talc Crystals Tyrosine Crystals Other Crystals Amorphous Sediment Urine Bacteria Epithelial Casts Fatty Casts Hyaline Casts Granular Casts Waxy Casts RBC Casts WBC Casts Other Casts Urine Mucus Urine Trichomonas Urine Yeast Urine Sperm Ur Oval Fat Bodies Urine Test (NEGATIVE) COVID-19 (RONALDO) (Negative) COVID-19 Clin Com Influenza Type A (KATIUSKA) (Negative) Influenza Type B (KATIUSKA) (Negative) Influenza A & B Note 03/30/22 03/30/22 03/30/22 Range/Units 16:01 16:44 17:39 WBC (4.8-10.8) X10*3/uL RBC (4.20-5.50) X10*6/uL Hgb (12.0-16.0) g/dl Hct (37.0-47.0) % MCV (80.0-98.0) fL MCH (27.0-33.0) pg MCHC (31.0-35.0) g/dl RDW (11.0-16.0) % Plt Count (160-400) X10*3/uL MPV (9.4-12.3) fL Immature Gran % (Auto) (0.0-0.4) % Neut % (Auto) (45-73) % Lymph % (Auto) (20-40) % [place] % (Auto) (2-11) % Eos % (Auto) (0-4) % Baso % (Auto) (0-2) % Lymph # (Auto) (1.2-4.9) X10*3/uL [place] # (Auto) (0.1-1.2) X10*3/uL Eos # (Auto) (0.0-0.4) X10*3/uL Baso # (Auto) (0.0-0.2) X10*3/uL Abs Immat Gran (auto) (0.00-0.03) X10*3/uL Absolute Neuts (auto) (2.0-8.3) x10*3/uL Absolute Nucleated RBC (0.0-0.012) X10*3/uL Nucleated RBC % (auto) (0.0-0.2) /100WBC Sodium (135-145) mmol/L Potassium (3.3-5.1) mmol/L Chloride (96-108) mmol/L Carbon Dioxide (22-29) mmol/L Anion Gap (12-20) BUN (9-16) mg/dL Creatinine (0.5-1.4) mg/dL Estim Creat Clear Calc Estimated GFR POC Glucose 74 (60-115) mg/dL Random Glucose (60-115) mg/dL Calcium (8.4-10.2) mg/dL Total Bilirubin (0.0-1.0) mg/dL AST (5-31) U/L ALT (0-31) U/L Alkaline Phosphatase (39-117) U/L Troponin I High Sens < 3.5 (<3.5-17.0) ng/L Total Protein (6.5-8.0) g/dL Albumin (3.5-5.0) g/dL Lipase (8-78) U/L Urine Color Urine Appearance Urine pH Ur Specific [place] Urine Protein Urine Glucose (UA) Urine Ketones Urine Blood Urine Nitrite Ur Leukocyte Esterase Urine RBC Urine WBC Urine WBC Clumps Ur Squamous Epith Cells Ur Renal Epithelial Cell [place] Biurate Crystals Calcium Carbonate Cryst Calcium Phosphate Cryst Calcium Oxalate Crystal Leucine Crystals Cystine Crystals Uric Acid Crystals Triple Phos Crystals Talc Crystals Tyrosine Crystals Other Crystals Amorphous Sediment Urine Bacteria Epithelial Casts Fatty Casts Hyaline Casts Granular Casts Waxy Casts RBC Casts WBC Casts Other Casts Urine Mucus Urine Trichomonas Urine Yeast Urine Sperm Ur Oval Fat Bodies Urine Test (NEGATIVE) COVID-19 (RONALDO) (Negative) COVID-19 Clin Com Influenza Type A (KATIUSKA) Negative (Negative) Influenza Type B (KATIUSKA) Negative (Negative) Influenza A & B Note See Note 10/21/21 10/21/21 10/21/21 Range/Units 17:39 18:21 18:21 WBC (4.8-10.8) X10*3/uL RBC (4.20-5.50) X10*6/uL Hgb (12.0-16.0) g/dl Hct (37.0-47.0) % MCV (80.0-98.0) fL MCH (27.0-33.0) pg MCHC (31.0-35.0) g/dl RDW (11.0-16.0) % Plt Count (160-400) X10*3/uL MPV (9.4-12.3) fL Immature Gran % (Auto) (0.0-0.4) % Neut % (Auto) (45-73) % Lymph % (Auto) (20-40) % [place] % (Auto) (2-11) % Eos % (Auto) (0-4) % Baso % (Auto) (0-2) % Lymph # (Auto) (1.2-4.9) X10*3/uL [place] # (Auto) (0.1-1.2) X10*3/uL Eos # (Auto) (0.0-0.4) X10*3/uL Baso # (Auto) (0.0-0.2) X10*3/uL Abs Immat Gran (auto) (0.00-0.03) X10*3/uL Absolute Neuts (auto) (2.0-8.3) x10*3/uL Absolute Nucleated RBC (0.0-0.012) X10*3/uL Nucleated RBC % (auto) (0.0-0.2) /100WBC Sodium (135-145) mmol/L Potassium (3.3-5.1) mmol/L Chloride (96-108) mmol/L Carbon Dioxide (22-29) mmol/L Anion Gap (12-20) BUN (9-16) mg/dL Creatinine (0.5-1.4) mg/dL Estim Creat Clear Calc Estimated GFR POC Glucose (60-115) mg/dL Random Glucose (60-115) mg/dL Calcium (8.4-10.2) mg/dL Total Bilirubin (0.0-1.0) mg/dL AST (5-31) U/L ALT (0-31) U/L Alkaline Phosphatase (39-117) U/L Troponin I High Sens (<3.5-17.0) ng/L Total Protein (6.5-8.0) g/dL Albumin (3.5-5.0) g/dL Lipase (8-78) U/L Urine Color Cancelled YELLOW Urine Appearance Cancelled CLEAR Urine pH Cancelled 6.5 Ur Specific [place] Cancelled <= 1.005 Urine Protein Cancelled NEG Urine Glucose (UA) Cancelled NEG Urine Ketones Cancelled NEG Urine Blood Cancelled NEG Urine Nitrite Cancelled NEG Ur Leukocyte Esterase Cancelled NEG Urine RBC Cancelled Urine WBC Cancelled Urine WBC Clumps Cancelled Ur Squamous Epith Cells Cancelled Ur Renal Epithelial Cell Cancelled [place] Biurate Crystals Cancelled Calcium Carbonate Cryst Cancelled Calcium Phosphate Cryst Cancelled Calcium Oxalate Crystal Cancelled Leucine Crystals Cancelled Cystine Crystals Cancelled Uric Acid Crystals Cancelled Triple Phos Crystals Cancelled Talc Crystals Cancelled Tyrosine Crystals Cancelled Other Crystals Cancelled Amorphous Sediment Cancelled Urine Bacteria Cancelled Epithelial Casts Cancelled Fatty Casts Cancelled Hyaline Casts Cancelled Granular Casts Cancelled Waxy Casts Cancelled RBC Casts Cancelled WBC Casts Cancelled Other Casts Cancelled Urine Mucus Cancelled Urine Trichomonas Cancelled Urine Yeast Cancelled Urine Sperm Cancelled Ur Oval Fat Bodies Cancelled Urine Test (NEGATIVE) COVID-19 (RONALDO) Negative (Negative) COVID-19 Clin Com See Note Influenza Type A (KATIUSKA) (Negative) Influenza Type B (KATIUSKA) (Negative) Influenza A & B Note 10/21/21 Range/Units 18:21 WBC (4.8-10.8) X10*3/uL RBC (4.20-5.50) X10*6/uL Hgb (12.0-16.0) g/dl Hct (37.0-47.0) % MCV (80.0-98.0) fL MCH (27.0-33.0) pg MCHC (31.0-35.0) g/dl RDW (11.0-16.0) % Plt Count (160-400) X10*3/uL MPV (9.4-12.3) fL Immature Gran % (Auto) (0.0-0.4) % Neut % (Auto) (45-73) % Lymph % (Auto) (20-40) % [place] % (Auto) (2-11) % Eos % (Auto) (0-4) % Baso % (Auto) (0-2) % Lymph # (Auto) (1.2-4.9) X10*3/uL [place] # (Auto) (0.1-1.2) X10*3/uL Eos # (Auto) (0.0-0.4) X10*3/uL Baso # (Auto) (0.0-0.2) X10*3/uL Abs Immat Gran (auto) (0.00-0.03) X10*3/uL Absolute Neuts (auto) (2.0-8.3) x10*3/uL Absolute Nucleated RBC (0.0-0.012) X10*3/uL Nucleated RBC % (auto) (0.0-0.2) /100WBC Sodium (135-145) mmol/L Potassium (3.3-5.1) mmol/L Chloride (96-108) mmol/L Carbon Dioxide (22-29) mmol/L Anion Gap (12-20) BUN (9-16) mg/dL Creatinine (0.5-1.4) mg/dL Estim Creat Clear Calc Estimated GFR POC Glucose (60-115) mg/dL Random Glucose (60-115) mg/dL Calcium (8.4-10.2) mg/dL Total Bilirubin (0.0-1.0) mg/dL AST (5-31) U/L ALT (0-31) U/L Alkaline Phosphatase (39-117) U/L Troponin I High Sens (<3.5-17.0) ng/L Total Protein (6.5-8.0) g/dL Albumin (3.5-5.0) g/dL Lipase (8-78) U/L Urine Color Urine Appearance Urine pH Ur Specific [place] Urine Protein Urine Glucose (UA) Urine Ketones Urine Blood Urine Nitrite Ur Leukocyte Esterase Urine RBC Urine WBC Urine WBC Clumps Ur Squamous Epith Cells Ur Renal Epithelial Cell [place] Biurate Crystals Calcium Carbonate Cryst Calcium Phosphate Cryst Calcium Oxalate Crystal Leucine Crystals Cystine Crystals Uric Acid Crystals Triple Phos Crystals Talc Crystals Tyrosine Crystals Other Crystals Amorphous Sediment Urine Bacteria Epithelial Casts Fatty Casts Hyaline Casts Granular Casts Waxy Casts RBC Casts WBC Casts Other Casts Urine Mucus Urine Trichomonas Urine Yeast Urine Sperm Ur Oval Fat Bodies Urine Test NEGATIVE (NEGATIVE) COVID-19 (RONALDO) (Negative) COVID-19 Clin Com Influenza Type A (KATIUSKA) (Negative) Influenza Type B (KATIUSKA) (Negative) Influenza A & B Note ECG Data Interpretation: Sinus tachycardia. Reticular 105. NC interval 136. QRS 102. QTC 436. Negative STEMI Discharge Plan Discharge Clinical Impression: Gastroenteritis, GERD (gastroesophageal reflux disease) Patient Disposition: Home, Self-Care Instructions: Gastroenteritis (ED), Gastroesophageal Reflux Disease (ED) Additional Instructions: Your images and labs came back normal. You are safe for discharge. Please follow-up with your microbiology manager for endoscope P and colonoscopy. Continue taking medications you are prescribed by primary care provider which were omeprazole and sucralfate. Return to the ED immediately for any weakness, dizziness, nausea, vomiting, chest pain, shortness of breath, blood in stool, intractable diarrhea, or any other concerning symptoms. Please follow up with primary care provider. Prescriptions: No Action fluticasone propionate 50 mcg/actuation spray,suspension 1 spray intranasal DAILY Qty: 16 6RF (DME) blood sugar diagnostic Strip See Rx Instructions ea Not Applicable QID Qty: 300 3RF Rx Instructions: 3 times a day (DME) lancets 28 gauge misc See Rx Instructions ea topical QID Qty: 300 3RF Rx Instructions: 3 times a day ezetimibe 10 mg tablet 10 mg PO DAILY Qty: 90 2RF gabapentin 400 mg capsule 400 mg PO TID 30 Days Qty: 90 5RF famotidine 40 mg tablet 40 mg PO DAILY Qty: 90 3RF duloxetine 30 mg capsule,delayed release(DR/EC) 30 mg PO BID Qty: 180 3RF fluticasone propion-salmeterol [Advair Diskus] 250-50 mcg/dose blister with device 1 inh inhalation BID Qty: 180 3RF cetirizine 10 mg tablet 10 mg PO DAILY Qty: 90 3RF tizanidine 4 mg tablet 4 mg PO TID PRN (Reason: for muscle spasm) Qty: 90 0RF (DME) pen needle, diabetic [BD Vanessa 2nd Gen Pen Needle] 32 gauge x 5/32 needle See Rx Instructions .ROUTE .COMPLEX Qty: 50 4RF Dose Instruction: USE A NEW NEEDLE ONCE DAILY Rx Instructions: USE A NEW NEEDLE ONCE DAILY albuterol sulfate 90 mcg/actuation HFA aerosol inhaler 1 inh inhalation QID PRN (Reason: shortness of breath or wheezing) Qty: 6.7 0RF clonazepam 1 mg tablet 1 mg PO BID 0RF Myrbetriq 25 mg tablet extended release 24 hr 25 mg PO DAILY Qty: 30 0RF ipratropium-albuterol 0.5 mg-3 mg(2.5 mg base)/3 mL solution for nebulization 3 ml inhalation Q6H PRN (Reason: muscle spasm) 0RF albuterol sulfate 90 mcg/actuation HFA aerosol inhaler inhalation 0RF (DME) cane with quad tips See Rx Instructions .Route .MEDSUPPLY Qty: 1 0RF Rx Instructions: use as directed (DME) incontinence pad See Rx Instructions .Route .MEDSUPPLY Qty: 120 8RF Rx Instructions: As directed 4 times a day as needed albuterol sulfate [ProAir HFA] 90 mcg/actuation HFA aerosol inhaler 2 puff inhalation Q6H PRN (Reason: shortness of breath or wheezing) Qty: 18 5RF ropinirole 0.5 mg tablet 0.5 mg PO BEDTIME Qty: 90 2RF meclizine 12.5 mg tablet 12.5 mg PO DAILY PRN (Reason: dizziness) Qty: 20 1RF omeprazole 20 mg capsule,delayed release(DR/EC) 20 mg PO DAILY PRN (Reason: gerd) Qty: 14 0RF sucralfate 1 gram tablet 1 g PO BID 14 Days Qty: 28 0RF metformin 750 mg tablet extended release 24 hr 750 mg PO BID 90 Days Qty: 180 1RF cholecalciferol (vitamin D3) 25 mcg (1,000 unit) tablet 25 mcg PO DAILY Qty: 30 5RF Trulicity 3 mg/0.5 mL pen injector 3 mg subcut QWEEK 30 Days Qty: 2.5 6RF Rx Instructions: dose increased ibuprofen 800 mg tablet 800 mg PO BID PRN (Reason: pain) Qty: 60 0RF nicotine 7 mg/24 hr patch 24 hour 1 patch transdermal Q24H Qty: 28 0RF fluconazole [Diflucan] 150 mg tablet 150 mg PO QWEEK Qty: 2 0RF nystatin 100,000 unit/gram powder 1 appl topical BID 14 Days Qty: 60 0RF Rx Instructions: apply to affected area cyanocobalamin (vitamin B-12) 500 mcg tablet,disintegrating 500 mcg sublingual DAILY Qty: 30 11RF Tresiba FlexTouch U-100 100 unit/mL (3 mL) insulin pen 18 unit subcut BEDTIME 90 Days Qty: 30 1RF zolpidem 10 mg tablet 10 mg PO BEDTIME PRN (Reason: Insomnia) 0RF nicotine 14 mg/24 hr patch 24 hour 1 patch topical DAILY 0RF docusate sodium 100 mg capsule 100 mg PO BID 0RF loperamide 2 mg capsule 2 mg PO BEDTIME 0RF bisacodyl [Dulcolax (bisacodyl)] 5 mg tablet,delayed release (DR/EC) 10 mg PO ONCE 1 Days Qty: 2 0RF Rx Instructions: take 2 tabs at noon the day before your colonoscopy polyethylene glycol 3350 [Miralax] 17 gram/dose powder 238 g PO ONCE Qty: 238 0RF Rx Instructions: As directed by gastroenterology department at [facility] Citrucel 500 mg tablet 500 mg PO DAILY Qty: 30 2RF Rx Instructions: take it with full glass of water Cholestyramine Light 4 gram powder 4 g PO BID Qty: 210 3RF Rx Instructions: administer w/meal; avoid other meds within 1hr before or 4-6hr after dose Stand Alone Forms: Work/School Release Interventions: ED Discharge Assessment Last Done: 10/21/21 19:37 Discharge Date/Time: 10/21/21 19:37 Print Language: U[place]
[2021-10-21 18:41] LABS: Appearance Urine CLEAR; Color Urine YELLOW; Glucose Urine UA NEG (NEG); Leukocyte Esterase Urine NEG (NEG); Nitrite Urine NEG (NEG); PH 6.5 (5.0-8.0); Specific Gravity - Urine <= 1.005 (1.005-1.025); Urine Blood NEG (NEG); Urine Ketones NEG (NEG); Urine Protein NEG (NEG-TRACE)
[2021-10-21 19:11] LABS: UPreg QC Valid YES; Urine Pregnancy NEGATIVE (NEGATIVE)
== END 2021-10-21 19:37 | disposition home or self-care (01) ==
PROVIDERS: Physician Assistant; Emergency Provider Emergency Medicine; PCP Internal Medicine
DX: K52.9 Noninfective gastroenteritis and colitis, unspecified (principal); K21.9 Gastro-esophageal reflux disease without esophagitis; R11.2 Nausea with vomiting, unspecified; Z20.822 Contact with and (suspected) exposure to COVID-19; E11.9 Type 2 diabetes mellitus without complications; E78.5 Hyperlipidemia, unspecified; F17.200 Nicotine dependence, unspecified, uncomplicated; Z79.4 Long term (current) use of insulin; Z79.899 Other long term (current) drug therapy
CPT/HCPCS: 36415; 74177; 80053; 81003; 81025; 82947; 83690; 84484; 85025; 87502; 87635; 93005; 96374; 99284; Q9967

== ENCOUNTER 2021-11-04 07:52 | Outpatient (REF) | payer OTHER, SELFPAY ==
[2021-11-04 17:25] LABS: CT PCR NOT DETECTED (Not Detect.); NG PCR NOT DETECTED (Not Detect.)
[2021-11-05 09:45] LABS: BV Int Neg Control Negative (Negative); BV Int Pos Control Positive (Positive)
[2021-11-09 14:26] LABS: HPV mRNA E6/E7 rflx Not Detected (Not Detected)
== END 2021-11-04 07:53 | disposition home or self-care (01) ==
LOC: HO.LAB 07:52
PROVIDERS: PCP Internal Medicine; Visit Provider Advanced Practice Midwife
DX: Z01.419 Encounter for gynecological examination (general) (routine) without abnormal findings (principal); Z11.51 Encounter for screening for human papillomavirus (HPV); R10.2 Pelvic and perineal pain; Z20.2 Contact with and (suspected) exposure to infections with a predominantly sexual mode of transmission
CPT/HCPCS: 81003; 87480; 87491; 87510; 87591; 87624; 87660; 88142

== ENCOUNTER 2021-11-26 10:30 | Outpatient (REF) | payer OTHER, SELFPAY ==
--- NOTE | ~2021-11-26 | US_ITS ---
EXAMINATION: US PELVIS CLINICAL INFORMATION: Pelvic and perineal pain. COMPARISON: None TECHNIQUE: Ultrasound of the pelvis is performed using both transabdominal and transvaginal transducers along with Doppler. Transvaginal imaging is performed due to inadequate visualization transabdominally. FINDINGS: UTERUS: The uterus is anteverted, retroflexed and measures 11.1 cm in length, 4.2 cm in AP and 4.7 cm in transverse dimension. The double wall endometrial thickness is 0.2 cm. The uterus is smooth in contour and has normal myometrial echogenicity. There are several hypoechoic lesions. 1. Lesion in the anterior fundus measures 2.3 x 1.8 x 1.8 cm. Previously it measured 3.2 x 3.8 x 2.9 cm. 2. Lesion in the anterior lower body of the uterus measures 2.0 x 1.3 x 1.5 cm. Previously it measured 2.3 x 2.4 cm. 3. Lesion in the right mid body of the uterus measures 1.6 x 1.4 x 1.5 cm. Previously it measured 1.8 x 1.7 x 2.5 cm. ADNEXA: Both ovaries have been removed. There is no free fluid in cul-de-sac. US/US pelvic and transvaginal IMPRESSION: Multiple uterine fibroids, stable. The ovaries have been removed. There is no free fluid in the cul-de-sac.
== END 2021-11-26 10:31 | disposition home or self-care (01) ==
LOC: HO.US 10:30
PROVIDERS: Visit Provider Advanced Practice Midwife
DX: R10.2 Pelvic and perineal pain (principal)
CPT/HCPCS: 76830; 76856

== ENCOUNTER 2021-12-04 | Outpatient (REF) | payer OTHER, SELFPAY | END 2021-12-04 00:01 | LOC: CF | PROVIDERS: Visit Provider Nurse Practitioner Family | DX: R10.13 Epigastric pain (principal); R19.7 Diarrhea, unspecified; R14.0 Abdominal distension (gaseous); K21.9 Gastro-esophageal reflux disease without esophagitis; K58.9 Irritable bowel syndrome, unspecified; E55.9 Vitamin D deficiency, unspecified; I25.10 Atherosclerotic heart disease of native coronary artery without angina pectoris | CPT/HCPCS: 99212 ==

== ENCOUNTER 2021-12-04 08:00 | Outpatient (REF) | payer OTHER, SELFPAY ==
[2021-12-12 16:57] LABS: Pancreatic Elastase-1 16 mcg/g
== END 2021-12-04 08:01 | disposition home or self-care (01) ==
LOC: HO.LNP 08:00
PROVIDERS: Visit Provider Nurse Practitioner Family
DX: R10.9 Unspecified abdominal pain (principal)
CPT/HCPCS: 82656

== ENCOUNTER 2021-12-04 08:39 | Outpatient (REF) | payer OTHER, SELFPAY ==
--- NOTE | ~2021-12-04 | MM_ITS ---
EXAMINATION: MM SCREENING DIGITAL BREAST TOMOSYNTHESIS, BILATERAL CLINICAL INFORMATION: Screening. Asymptomatic. The lifetime risk of breast cancer based on the Tyrer-Cuzick Model is 5%. COMPARISON: Mammography: 07/08/2020, 12/16/2018, 11/04/2017 TECHNIQUE: Digital breast tomosynthesis is performed in both the craniocaudal and mediolateral oblique views along with computer-aided detection (CAD). Synthesized 2D images are generated from the tomosynthesis. FINDINGS: There are scattered areas of fibroglandular density (ACR BI-RADS breast composition Category b). There are no significant masses, abnormal calcifications, or other abnormalities. Parenchymal pattern is similar to prior studies. The axilla and skin contours are unremarkable. MM/MM tomosynthesis screening BI IMPRESSION: No mammographic evidence of malignancy. ASSESSMENT: BI-RADS 1: Negative RECOMMENDATION: Routine annual mammography screening. This patient's information was entered into a reminder system with a target due date for their next mammogram.
[2021-12-04 17:55] LABS: Cholesterol 199 mg/dL; HDL Cholesterol 37 mg/dL; LDL Cholesterol Calculated 97 mg/dl; Triglycerides 325 mg/dL
[2021-12-04 18:15] LABS: Vitamin D 25-OH Total 34.8 ng/mL (>30)
[2021-12-04 18:41] LABS: Folate 14.8 ng/mL (> or = 4.0); Vitamin B12 1222 pg/mL (200-900)
[2021-12-07 16:11] LABS: Transglutaminase Ab IgG <1.0 U/mL; Transglutaminase IgA <1.0 U/mL
== END 2021-12-04 08:40 | disposition home or self-care (01) ==
LOC: HO.MAMMO 08:39
PROVIDERS: Absent Provider Nurse Practitioner Family; PCP Internal Medicine; Visit Provider Internal Medicine
DX: Z12.31 Encounter for screening mammogram for malignant neoplasm of breast (principal); Z12.11 Encounter for screening for malignant neoplasm of colon; R10.9 Unspecified abdominal pain; I25.10 Atherosclerotic heart disease of native coronary artery without angina pectoris; R19.7 Diarrhea, unspecified; E55.9 Vitamin D deficiency, unspecified
CPT/HCPCS: 36415; 77063; 77067; 80061; 82306; 82607; 82746; 84443; 86364

== ENCOUNTER → 2021-12-14 08:00 | Outpatient (BNVA) | payer OTHER, SELFPAY | PROVIDERS: PCP Internal Medicine; Visit Provider Advanced Practice Midwife | DX: D25.9 Leiomyoma of uterus, unspecified (principal); R10.2 Pelvic and perineal pain; Z71.2 Person consulting for explanation of examination or test findings | CPT/HCPCS: 99212 ==

== ENCOUNTER 2021-12-25 05:59 | Outpatient (REF) | payer OTHER, SELFPAY ==
[2021-12-25 12:09] LABS: Vitamin D 25-OH Total 31.6 ng/mL (>30)
== END 2021-12-25 06:00 | disposition home or self-care (01) ==
LOC: HO.HMGCLDS 05:59
PROVIDERS: PCP Internal Medicine; Visit Provider Internal Medicine
DX: E53.8 Deficiency of other specified B group vitamins (principal)
CPT/HCPCS: 36415; 82306

== ENCOUNTER 2021-12-31 07:14 | Day surgery (SDC) | payer OTHER, SELFPAY ==
[2021-10-19 08:15] VITALS: BMI 32.1
--- NOTE | 2021-12-30 10:04 | P.CONAN_ITS ---
Documented by User: Sonam Ramirez NP 12/30/21 10:06 HPI - Anesthesia Eval Consult details Narrative: 51yo F for Upper Endoscopy and Colonoscopy [facility] Active Problems Active Problems: All Active Problems (Updated 11/04/21 @ 08:47 by Ifrah Lopes CNM) Pelvic pain (Acute) Otitis media, right (Acute) Jami infection (Acute) Mild intermittent asthma (Acute) Depression with anxiety (Acute) COVID-19 vaccination declined (Acute) Cigarette smoker motivated to quit (Acute) Decreased hearing of right ear (Acute) Tinnitus of right ear (Acute) Arthritis (Acute) Mixed stress and urge incontinence (Acute) Allergic rhinitis (Acute) GERD (gastroesophageal reflux disease) (Acute) Restless leg syndrome (Acute) Fibromyalgia (Acute) Type 2 diabetes mellitus with microalbuminuria, with long-term current use of insulin (Acute) B12 deficiency (Acute) Non-toxic multinodular goiter (Acute) Dyslipidemia (Acute) Obesity (BMI 30-39.9) (Acute) Past Medical History Medical History Allergic rhinitis Anxiety Arthritis Asthma B12 deficiency Cigarette smoker motivated to quit COVID-19 vaccination declined Decreased hearing of right ear Depression with anxiety Diabetes Dyslipidemia Fibromyalgia GERD (gastroesophageal reflux disease) Mild intermittent asthma Mixed stress and urge incontinence Non-toxic multinodular goiter Obesity (BMI 30-39.9) Pelvic pain Restless leg syndrome Tinnitus of right ear Type 2 diabetes mellitus with microalbuminuria, with long-term current use of insulin Vertigo Family History Family History Father Diabetes mellitus Heart murmur Mother Diabetes mellitus HTN (hypertension) Glaucoma Melanoma Surgical History Surgical History History of esophagogastroduodenoscopy (EGD) Hx of appendectomy Hx of BSO (bilateral salpingo-oophorectomy) Hx of section Hx of cholecystectomy Hx of colonoscopy Hx of laparoscopy Social History Social History Housing: Apartment Alcohol intake: never Patient Tobacco Use Status: Former Tobacco user Cigarettes Per Day: 5 Years Smoked: 34 e-Cigarette/Vaping Use: Never Used Advance Directives: No Advance Directives Information Provided: Yes Current occupational status: unemployed Sexual orientation: Straight/Heterosexual Gender identity: Female Meds Allergies Allergy/AdvReac Type Severity Reaction Status Date / Time aspirin Allergy Intermediate rash Verified 12/14/21 08:07 latex [LATEX] Allergy Mild HIVES/RASH Verified 12/14/21 08:07 Penicillins Allergy Mild unknown Verified 12/14/21 08:07 amoxicillin AdvReac Intermediate diarrhea Verified 12/14/21 08:07 Beef Containing Products AdvReac Intermediate DIARRHEA/VO Verified 12/14/21 08:07 [employer] Allergy Intermediate inflammation Uncoded 12/14/21 08:07 and swelling Home Medications Medication Instructions Recorded Confirmed Last Taken Type clonazepam 1 mg tablet 1 mg PO BID 04/28/20 10/17/21 Unknown History nicotine 14 mg/24 hr daily 1 patch topical DAILY 07/20/21 10/17/21 Unknown History transdermal patch zolpidem 10 mg tablet 10 mg PO BEDTIME PRN Insomnia 07/20/21 10/17/21 Unknown History topiramate 50 mg tablet 50 mg PO BID 10/28/21 Unknown History Exam Exam Date and Time: December 30, 2021 1004 Height,Weight and Vital Signs: Height 5 ft 4 in Weight 84.822 kg Pertinent Lab Results Pertinent Lab Results: Laboratory Tests 10/21/21 10/21/21 12:25 12:25 WBC 9.1 Hgb 14.5 Hct 40.9 Plt Count 347 Sodium 138 Potassium 4.2 Chloride 104 Carbon Dioxide 29 BUN 9 Creatinine 0.83 Narrative Narrative: EKG 09/2021 Vent. Rate : 105 BPM ? ? Atrial Rate : 105 BPM ?? P-R Int : 136 ms? QRS Dur : 102 ms ? ? QT Int : 330 ms ? ? ? P-R-T Axes : 052 -41 052 degrees ?? QTc Int : 436 ms ? Sinus tachycardia Left axis deviation Incomplete right bundle branch block Abnormal ECG When compared with ECG of 26-JUN-2021 14:16, No significant change was found Assessment and Plan Assessment Anesthesia Assessment: Chart Reviewed Documented by User: Yolanda Roberts MD 12/31/21 07:36 [facility] Past Medical History Medical History Allergic rhinitis Anxiety Arthritis Asthma B12 deficiency Cigarette smoker motivated to quit COVID-19 vaccination declined Decreased hearing of right ear Depression with anxiety Diabetes Dyslipidemia Fibromyalgia GERD (gastroesophageal reflux disease) Mild intermittent asthma Mixed stress and urge incontinence Non-toxic multinodular goiter Obesity (BMI 30-39.9) Pelvic pain Restless leg syndrome Tinnitus of right ear Type 2 diabetes mellitus with microalbuminuria, with long-term current use of insulin Vertigo Family History Family History Father Diabetes mellitus Heart murmur Mother Diabetes mellitus HTN (hypertension) Glaucoma Melanoma Family history of problems with anesthesia: No Surgical History Surgical History History of esophagogastroduodenoscopy (EGD) Hx of appendectomy Hx of BSO (bilateral salpingo-oophorectomy) Hx of section Hx of cholecystectomy Hx of colonoscopy Hx of laparoscopy History of Problems with Anesthesia: No Social History Social History Housing: Apartment Alcohol intake: never Patient Tobacco Use Status: Former Tobacco user Cigarettes Per Day: 5 Years Smoked: 34 e-Cigarette/Vaping Use: Never Used Advance Directives: No Advance Directives Information Provided: Yes Current occupational status: unemployed Sexual orientation: Straight/Heterosexual Gender identity: Female Meds Allergies Allergy/AdvReac Type Severity Reaction Status Date / Time aspirin Allergy Intermediate rash Verified 12/14/21 08:07 latex [LATEX] Allergy Mild HIVES/RASH Verified 12/14/21 08:07 Penicillins Allergy Mild unknown Verified 12/14/21 08:07 amoxicillin AdvReac Intermediate diarrhea Verified 12/14/21 08:07 Beef Containing Products AdvReac Intermediate DIARRHEA/VO Verified 12/14/21 08:07 [employer] Allergy Intermediate inflammation Uncoded 12/14/21 08:07 and swelling Home Medications Medication Instructions Recorded Confirmed Last Taken Type clonazepam 1 mg tablet 1 mg PO BID 04/28/20 10/17/21 Unknown History nicotine 14 mg/24 hr daily 1 patch topical DAILY 07/20/21 10/17/21 Unknown History transdermal patch zolpidem 10 mg tablet 10 mg PO BEDTIME PRN Insomnia 07/20/21 10/17/21 Unknown History topiramate 50 mg tablet 50 mg PO BID 10/28/21 Unknown History Exam Airway Mallampati Class: III TM Dist: >3cm Neck ROM: Full Denture: Upper Assessment and Plan Assessment Anesthesia Assessment: Anesthesia Plan Discussed Final Anesthetic Review Family History of Problems with Anesthesia: No History of Problems with Anesthesia: No NPO: Yes ASA Class: III Final Preanesthetic Review: No Changes in Pt Med Stat, Meds/Allgs Chart Reviewed, Consent Obtained/Reviewed and Anes Risks/Benef Reviewed Patient Risk: Low Procedure Risk: Low Anesthetic Plan Anesthetic Plan: MAC: Disposition: Standard PACU
[2021-12-31 07:28] LABS: Glucose, Whole Blood 115 mg/dL (60-115)
[2021-12-31 07:50] VITALS: BP 124/59; PULSE 90; RESP 18; TEMP 36.5; O2SAT 98; BMI 25.5
[2021-12-31] MEDS: Lactated Ringers 1,000 ML 100 ML IVCONT (07:58)
--- NOTE | 2021-12-31 08:34 | MHC.SHP ---
Pre-Procedural Eval Section A Date of Service: 12/31/21 Section B Chief Complaint: GERD, IBS with Diarrhea Relevant Family History (Specify if Yes): No Relevant Social History: None Present Medications: see Short Stay Collaborative assessment Medical History: Significant History (Allergic rhinitis Anxiety Arthritis Asthma B12 deficiency Cigarette smoker motivated to quit COVID-19 vaccination declined Decreased hearing of right ear Depression with anxiety Diabetes Dyslipidemia Fibromyalgia GERD (gastroesophageal reflux disease) Mild intermittent asthma Mixed stress and urge i) History of Previous Operations: Relevant previous surgery/procedure and date(s) (History of esophagogastroduodenoscopy (EGD) Hx of appendectomy Hx of BSO (bilateral salpingo-oophorectomy) Hx of section Hx of cholecystectomy Hx of colonoscopy Hx of laparoscopy) Allergies: Allergies Allergy/AdvReac Type Severity Reaction Status Date / Time aspirin Allergy Intermediate rash Verified 12/14/21 08:07 latex [LATEX] Allergy Mild HIVES/RASH Verified 12/14/21 08:07 Penicillins Allergy Mild unknown Verified 12/14/21 08:07 amoxicillin AdvReac Intermediate diarrhea Verified 12/14/21 08:07 Beef Containing Products AdvReac Intermediate DIARRHEA/VO Verified 12/14/21 08:07 [employer] Allergy Intermediate inflammation Uncoded 12/14/21 08:07 and swelling Review of Systems Sugical H&P ROS: Negative: Constitution, Cardiovascular, Respiratory, Neurological, Psychiatric, Hem-Onc, Allergic/Immunologic, Gastrointestinal, Genitourinary, Musculoskeletal, Integumentary, Endocrine and Eyes/Ears/Nose/Throat Exam Surgical H&P Exam: Normal: HEENT, Normal: Heart, Normal: Lungs, Normal: Extremities, Normal: Skin and Normal: Neurological and Significant Findings: Abdomen (epigastric tenderness) Plan Diagnosis/Plan: Unchanged I have reviewed the history and physical and performed a pertinent physical examination on my patient. No changes have occurred unless specified.
--- NOTE | 2021-12-31 08:36 | P.BOP_ITS ---
Brief Operative Note Date of Service: 12/31/21 Pre-op diagnosis: GERD< altered bowel habits Post-op diagnosis: same Procedure: see op note Surgeon: Benson Bolton MD Anesthesia: MAC Was an Power Distributor used for this Procedure?: No Estimated blood loss (mL): 0 Condition: stable Disposition: PACU
--- NOTE | 2021-12-31 08:37 | P.OP_ITS ---
Operative Note Operative Note Date of Service: 12/31/21 Narrative: Operative Information Procedure Description: EGD, Colonoscopy Indication: GERD< altered bowel habits Anesthesia: MAC FLEXIBLE TRANSORAL UPPER GASTROINTESTINAL ENDOSCOPY AND COLONOSCOPY PROCEDURE NOTE UPPER ENDOSCOPY Consent: Indications for the procedure and potential complications of bleeding, perforation, reaction to medications and missed diagnosis were discussed with the patient and informed consent was obtained. Instrument: Olympus GIF H 190 J mid size upper endoscope Monitoring: Vital signs and clinical assessment, continuous EKG monitoring, Pulse oximetry, Carbon Dioxide monitoring and blood pressure monitoring were done throughout the procedure. Procedure: The patient was placed in the left lateral decubitis position and pre-procedure medications were administered and a bite block was placed. The endoscope was inserted into the mouth and advanced under direct vision to the third part of duodenum. A careful inspection was made as the upper endoscope was withdrawn including a retroflexed examination of the proximal stomach; Findings and interventions are described below. Findings: Larynx:normal Esophagus: GE junction at 36 cm, diaphragm hiatus at 36 cm, mild esophagitis at GEJ, bx taken, bx also taken from distal and proximal esophagus in separate jars Stomach: Patchy erythema and nodularity. Biopsies were obtained. Grade 2 flap valve on retroflexed examination of the cardia. There appeared to be reduced gastric movement, also bile noted in stomach. Duodenum: Bulbar duodenitis, normal descending duodenum, bx taken Intervention: Biopsies as noted above COLONOSCOPY Instrument: Olympus variable stiffness pediatric scope 190L Colonoscopy Monitoring: Vital signs and clinical assessment, continuous EKG monitoring, Pulse oximetry, Carbon Dioxide monitoring and blood pressure monitoring were done throughout the procedure. Colon withdrawal time was 10 minutes. Procedure: The patient was placed in the left lateral decubitis position and pre-procedure medications were administered. After a digital rectal examination of the ano-rectum, the video colonoscope was inserted into the rectum and advanced through the colon to the cecum/TI. The colonoscope was slowly withdrawn in a retrograde panoramic fashion and the colon mucosa was carefully examined including a retroflexed view of the rectum. Findings and interventions are described below. Procedure Difficulty: easy Findings: Terminal Ileum-normal, bx taken Random colon bx taken Cecum:10 mm sessile polyp removed with cold snare Ascending Colon: normal Transverse Colon -normal Descending Colon:normal Sigmoid Colon: mild to moderate diverticulosis Rectum: Retroflexion with small internal hemorrhoids, grade I Anorectum - normal Colon preparation: [place] Bowel Preparation Scale Right colon; 0 Transverse colon: 1 Left colon; 1 (0 = Unprepared colon segment with mucosa not seen due to solid stool that cannot be cleared. 1 = Portion of mucosa of the colon segment seen, but other areas of the colon segment not well seen due to staining, residual stool and/or opaque liquid. 2 = Minor amount of residual staining, small fragments of stool and/or opaque liquid, but mucosa of colon segment seen well. 3 = Entire mucosa of colon segment seen well with no residual staining, small fragments of stool or opaque liquid) Impression and Post Procedure Diagnosis: Endoscopy Findings: bile acid gastric reflux esophagitis gastritis duodenitis Colonoscopy Findings: polyp internal hemorrhoids diverticular disease Plan: Await Pathology results Repeat Colonoscopy in 6-12 months due to poor prep or earlier if clinically indicated High fiber diet leaflet avoid straining at stool, epsom salts and sitz bath, anusol supps or cream consider GES and trial of cholestyramine (pt said her bowel habits worsened after cholecystectomy in past) Above findings were reviewed with the patient and relevant handouts were provided if indicated.
[2021-12-31 09:18] VITALS: BP 125/71; PULSE 101; RESP 16; TEMP 36.4; O2SAT 97
[2021-12-31 09:33] VITALS: BP 119/83; PULSE 80; RESP 18; TEMP 36.4; O2SAT 96
== END 2021-12-31 10:16 | disposition home or self-care (01) ==
PROVIDERS: PCP Internal Medicine; Visit Provider Internal Medicine Gastroenterology
PROC: (CPT 45385; principal; 2021-12-31 08:30)
DX: R19.4 Change in bowel habit (principal); K58.9 Irritable bowel syndrome, unspecified; D12.0 Benign neoplasm of cecum; K57.30 Diverticulosis of large intestine without perforation or abscess without bleeding; K64.0 First degree hemorrhoids; K21.9 Gastro-esophageal reflux disease without esophagitis; K29.50 Unspecified chronic gastritis without bleeding; K20.80 Other esophagitis without bleeding; K29.80 Duodenitis without bleeding; K44.9 Diaphragmatic hernia without obstruction or gangrene; F41.8 Other specified anxiety disorders; H91.91 Unspecified hearing loss, right ear; J45.20 Mild intermittent asthma, uncomplicated; M79.7 Fibromyalgia; I25.10 Atherosclerotic heart disease of native coronary artery without angina pectoris; E78.5 Hyperlipidemia, unspecified; E55.9 Vitamin D deficiency, unspecified; N39.46 Mixed incontinence; E11.9 Type 2 diabetes mellitus without complications; Z79.4 Long term (current) use of insulin; Z79.51 Long term (current) use of inhaled steroids; Z79.899 Other long term (current) drug therapy; Z87.891 Personal history of nicotine dependence; Z88.8 Allergy status to other drugs, medicaments and biological substances; Z88.0 Allergy status to penicillin; Z90.49 Acquired absence of other specified parts of digestive tract
CPT/HCPCS: 45385; 45380; 43239; 82947; 88305; 88342; J2250

== ENCOUNTER → 2022-01-12 08:31 | Outpatient (BNVA) | payer OTHER, SELFPAY | PROVIDERS: PCP Internal Medicine; Visit Provider Nurse Practitioner Family | DX: K21.9 Gastro-esophageal reflux disease without esophagitis (principal); K86.89 Other specified diseases of pancreas; K58.2 Mixed irritable bowel syndrome; Z86.010 Personal history of colon polyps; Z79.899 Other long term (current) drug therapy | CPT/HCPCS: 99212 ==

== ENCOUNTER → 2022-04-08 07:34 | Outpatient (REF) | payer OTHER, SELFPAY ==
--- NOTE | ~2022-04-08 | NM_ITS ---
EXAMINATION: ID RADIONUCLIDE SOLID FOOD GASTRIC EMPTYING 4-HOUR STUDY CLINICAL INFORMATION: Gastritis, without bleeding, unspecified. Diabetic. COMPARISON: None TECHNIQUE: A standard meal consisting of 4 oz of Egg Beaters brand tagged with 1000 microcuries Tc-99m Sulfur Colloid, 8 oz water and 2 slices of toast with jelly was administered orally to the patient. Images were obtained using a dual head gamma camera in the anterior and posterior projections over of the stomach immediately post ingestion and at hourly intervals up to 4 hours post ingestion. The anterior and posterior counts at each time interval were averaged using the geometric mean and expressed as percentage of the immediate post ingestion counts. FINDINGS: There is good visualization of activity in the stomach immediately post ingestion. As the study progresses, there is good clearance of activity from the stomach and visualization of progressively increasing small bowel activity. By the end of the study, there is almost no retention noted in the stomach. Retention in the stomach at each time interval was: 1 hour 81% (normal 37%-90%) 2 hours 69% (normal 30%-60%) 3 hours 25% 4 hours 4% (normal 0%-10%) ID/ID gastric emptying study IMPRESSION: Normal 4-hour solid food gastric emptying study.
== END ==
LOC: HO.NUCMED 07:34
PROVIDERS: Visit Provider Nurse Practitioner Family
DX: K29.70 Gastritis, unspecified, without bleeding (principal)
CPT/HCPCS: 78264; A9541

== ENCOUNTER 2022-05-01 06:35 | Outpatient (REF) | payer OTHER, SELFPAY ==
[2022-05-01 11:09] LABS: MANUAL DIFF FLAG NO
[2022-05-01 11:16] LABS: Basophils Absolute Auto 0.1 X10*3/uL (0.0-0.2); Eosinophils Absolute Auto 0.2 X10*3/uL (0.0-0.4); Eosinophils Percent Auto 2.3 % (0-4); Hematocrit 41.2 % (37.0-47.0); Hemoglobin 13.7 g/dl (12.0-16.0); Imm Gran Abs Auto 0.03 X10*3/uL (0.00-0.03); Imm Gran Pct Auto 0.4 % (0.0-0.4); Lymphocytes Absolute Auto 2.5 X10*3/uL (1.2-4.9); Lymphocytes Percent Auto 36.8 % (20-40); Mean Corpuscular HGB Conc 33.3 g/dl (31.0-35.0); Mean Corpuscular Hemoglobin 30.9 pg (27.0-33.0); Monocytes Absolute Auto 0.4 X10*3/uL (0.1-1.2); Monocytes Percent Auto 5.6 % (2-11); Neutrophils Absolute Auto 3.7 x10*3/uL (2.0-8.3); Neutrophils Percent Auto 53.9 % (45-73); Platelet Count 321 X10*3/uL (160-400); Red Blood Count 4.43 X10*6/uL (4.20-5.50); Red Cell Distribution Width 12.6 % (11.0-16.0); White Blood Count 6.9 X10*3/uL (4.8-10.8)
[2022-05-01 11:33] LABS: Estimated Average Glucose 114 mg/dL; Hemoglobin A1c % 5.6 %
[2022-05-01 11:49] LABS: Alanine Aminotransferase 17 U/L (0-31); Anion Gap 16 (12-20); Aspartate Amino Transferase 18 U/L (5-31); Blood Urea Nitrogen 10 mg/dL (9-16); Calcium 9.8 mg/dL (8.4-10.2); Carbon Dioxide 23 mmol/L (22-29); Chloride 106 mmol/L (96-108); Cholesterol 193 mg/dL; Estimated Glomerular Filt Rate > 60; Glucose Fasting 100 mg/dL (60-99); HDL Cholesterol 45 mg/dL; LDL Cholesterol Calculated 109 mg/dl; Potassium 4.6 mmol/L (3.3-5.1); Sodium 140 mmol/L (135-145); Triglycerides 196 mg/dL
[2022-05-01 11:52] LABS: Vitamin D 25-OH Total 31.9 ng/mL (>30)
[2022-05-01 11:55] LABS: Creatinine Urine 70.67 mg/dL; Microalbumin Urine < 5.0 mg/L
== END 2022-05-01 06:36 | disposition home or self-care (01) ==
LOC: HO.HMGCLDS 06:35
PROVIDERS: PCP Internal Medicine; Visit Provider Internal Medicine
DX: E11.29 Type 2 diabetes mellitus with other diabetic kidney complication (principal); I12.9 Hypertensive chronic kidney disease with stage 1 through stage 4 chronic kidney disease, or unspecified chronic kidney disease; R80.9 Proteinuria, unspecified; E78.5 Hyperlipidemia, unspecified; E66.9 Obesity, unspecified; G25.81 Restless legs syndrome; Z79.4 Long term (current) use of insulin
CPT/HCPCS: 36415; 80048; 80061; 82043; 82306; 83036; 84450; 84460; 85025

== ENCOUNTER → 2022-05-05 08:47 | Outpatient (BNVA) | payer OTHER, SELFPAY | PROVIDERS: PCP Internal Medicine; Visit Provider Nurse Practitioner Family | DX: K21.9 Gastro-esophageal reflux disease without esophagitis (principal); K58.2 Mixed irritable bowel syndrome; K86.89 Other specified diseases of pancreas | CPT/HCPCS: 99212 ==

== ENCOUNTER 2022-06-05 11:06 | Observation (INO) | payer OTHER, SELFPAY ==
[2022-06-05] VITALS (9 sets, daily range): BP systolic 107–152; BP diastolic 57–100; PULSE 91–105; RESP 14–22; TEMP 36.6–37.2; O2SAT 96–99; BMI 24.7
--- NOTE | ~2022-06-05 | CT_ITS ---
EXAMINATION: CT ANGIOGRAM OF THE CHEST WITH AND WITHOUT CONTRAST (CT PULMONARY ANGIOGRAM FOR PE) CLINICAL INFORMATION: Reason for Exam f/u ?PE COMPARISON: Previous chest CTA 06/05/2022 TECHNIQUE: Prior to contrast administration, noncontrast localization images were obtained. Subsequently, multidetector volumetric imaging was performed from the thoracic inlet to below the diaphragms following the administration of 65 mL Omnipaque 350 intravenous contrast. No contrast reaction reported Sagittal, coronal, and MIP oblique sagittal reformatted images were obtained on the CT workstation, uploaded to PACS, and reviewed. This CT examination was performed using dose optimization techniques as appropriate, variously including the following: *Automated exposure control *Adjustment of mA and/or kV according to patient size (this includes techniques or standardized protocols for targeted exams where dose is matched to indication/reason for exam; i.e. extremities or head) *Use of iterative reconstruction technique Total exam dose-length product 160 mGy-cm FINDINGS: QUALITY OF STUDY/CONTRAST BOLUS: Satisfactory. PULMONARY ARTERIES: No central or segmental pulmonary emboli. Evaluation of smaller subsegmental pulmonary arteries is limited due to respiratory motion artifact. THORACIC AORTA: No aneurysm or dissection. LUNG: No focal consolidation, nodules or masses. PLEURA: No pleural effusion or pneumothorax. MEDIASTINUM: Normal heart size. No pericardial effusion. No hilar or mediastinal lymphadenopathy. No evidence of septal bowing or right heart strain. The left lobe of the thyroid gland has been removed. CHEST WALL/AXILLA: No axillary or internal mammary lymphadenopathy. OSSEOUS STRUCTURES: No acute or suspicious osseous abnormality. UPPER ABDOMEN: Postcholecystectomy. No reflux of contrast into the hepatic veins to suggest elevated right heart pressures. CT/CT angio chest PE protocol IMPRESSION: No large or central pulmonary embolism. Evaluation of smaller subsegmental pulmonary arteries is limited due to respiratory artifact. VTE: Negative
--- NOTE | ~2022-06-05 | CT_ITS ---
CT HEAD WITHOUT IV CONTRAST CT CERVICAL SPINE WITHOUT IV CONTRAST INDICATION: Dizziness. COMPARISON: Brain MRI 12/17/2016. TECHNIQUE: Multidetector CT acquisitions of the head and cervical spine were obtained without IV contrast. Multiplanar reformats were acquired and utilized for image interpretation. This CT examination was performed using dose optimization techniques as appropriate, variously including the following: *Automated exposure control *Adjustment of mA and/or kV according to patient size (this includes techniques or standardized protocols for targeted exams where dose is matched to indication/reason for exam; i.e. extremities or head) *Use of iterative reconstruction technique FINDINGS: HEAD: There is no intracranial hemorrhage, hydrocephalus, extra-axial surface collection, midline shift, or other herniation pattern. Holman to white matter differentiation is diffusely maintained without evidence of an evolved acute territorial infarct. The basilar cisterns are preserved. No significant soft tissue abnormality. No acute osseous abnormality. The paranasal sinuses and the mastoid air cells are well aerated. CERVICAL SPINE: There is anatomic alignment of the vertebral bodies and posterior elements. There is no acute fracture and there is no acute subluxation. The craniocervical and atlantoaxial articulations are normal. There is no prevertebral soft tissue swelling. Imaged upper lungs are clear. Left thyroidectomy changes with surgical clips within the left sacral space. CT/CT cervical spine wo IV con IMPRESSION: - No acute intracranial findings. - No acute osseous findings within the cervical spine.
--- NOTE | ~2022-06-05 | CT_ITS ---
CT HEAD WITHOUT IV CONTRAST CT CERVICAL SPINE WITHOUT IV CONTRAST INDICATION: Dizziness. COMPARISON: Brain MRI 12/17/2016. TECHNIQUE: Multidetector CT acquisitions of the head and cervical spine were obtained without IV contrast. Multiplanar reformats were acquired and utilized for image interpretation. This CT examination was performed using dose optimization techniques as appropriate, variously including the following: *Automated exposure control *Adjustment of mA and/or kV according to patient size (this includes techniques or standardized protocols for targeted exams where dose is matched to indication/reason for exam; i.e. extremities or head) *Use of iterative reconstruction technique FINDINGS: HEAD: There is no intracranial hemorrhage, hydrocephalus, extra-axial surface collection, midline shift, or other herniation pattern. Holman to white matter differentiation is diffusely maintained without evidence of an evolved acute territorial infarct. The basilar cisterns are preserved. No significant soft tissue abnormality. No acute osseous abnormality. The paranasal sinuses and the mastoid air cells are well aerated. CERVICAL SPINE: There is anatomic alignment of the vertebral bodies and posterior elements. There is no acute fracture and there is no acute subluxation. The craniocervical and atlantoaxial articulations are normal. There is no prevertebral soft tissue swelling. Imaged upper lungs are clear. Left thyroidectomy changes with surgical clips within the left sacral space. CT/CT head/brain wo IV con IMPRESSION: - No acute intracranial findings. - No acute osseous findings within the cervical spine.
--- NOTE | ~2022-06-05 | CT_ITS ---
EXAMINATION: CT CHEST ANGIOGRAM PE PROTOCOL CLINICAL INFORMATION: , Reason for Exam syncopy COMPARISON: None TECHNIQUE: Volumetric imaging was performed through the chest. Reformatted coronal and sagittal imaging was performed. 3-D MIP images performed at a dedicated separate workstation. This CT examination was performed using dose optimization techniques as appropriate, variously including the following: *Automated exposure control *Adjustment of mA and/or kV according to patient size (this includes techniques or standardized protocols for targeted exams where dose is matched to indication/reason for exam; i.e. extremities or head) *Use of iterative reconstruction technique CONTRAST: 65 mL of Omnipaque 350 injected. DLP: 303 FINDINGS: PULMONARY ARTERIES: Suboptimal study, the pulmonary artery is not well opacified, the contrast in the pulmonary arteries is less dense than the aorta. There is a filling defect in a branch of left pulmonary artery to the left lower lobe this is probably nonocclusive embolus however difficult to well visualized due to suboptimal opacification of the pulmonary artery. Suboptimal enhancement of secondary branch of the right pulmonary artery to the right lower lobe could be artifacts. LINES/TUBES: None LUNGS: Lung Parenchyma: There is no CT evidence of significant lung parenchymal disease. Lung Nodules:There are no significant lung nodules. AIRWAYS: Trachea and bronchi are normal. PLEURA: No pleural effusion or pneumothorax. MEDIASTINUM AND TOMEKA: The visualized thyroid gland is unremarkable. No mediastinal, hilar or axillary lymphadenopathy. There is no mediastinal mass. VESSELS: Thoracic aorta is normal in size. HEART AND PERICARDIUM: Heart is normal in size. There is no pericardial effusion. There are no coronary calcifications. CHEST WALL, LOWER NECK, SURROUNDING SOFT TISSUES: Normal VISUALIZED ABDOMEN: Status post cholecystectomy otherwise included upper abdomen unremarkable. BONES: The visualized bony thorax is within normal limits. CT/CT angio chest PE protocol IMPRESSION: 1. Suboptimal study, the contrast in the pulmonary arteries is less dense than the aorta. 2. There is a filling defect in a branch of left pulmonary artery to the left lower lobe this is probably nonocclusive embolus however difficult to visualized due to suboptimal opacification of the pulmonary artery. Unless there is a contraindication, would recommend anticoagulate, consider follow-up CT angiogram in 48 hours with 100 mL of contrast and time bolus imaging. 3. No CT evidence of pulmonary infarct. (Referring physician staff is being called, to be alerted of the above findings and recommendations.) TC
--- NOTE | ~2022-06-05 | US_ITS ---
EXAMINATION: US VENOUS ULTRASOUND WITH DOPPLER LOWER EXTREMITY, BILATERAL CLINICAL INFORMATION: History of syncope. Question thromboembolic disease. COMPARISON: Chest CT from 06/05/2022. TECHNIQUE: Ultrasound of the deep veins is performed from the hip to the calf with compression sonography and color and pulse Doppler assessment. Spectral analysis with color-flow imaging is performed. FINDINGS: The common femoral vein is compressible and exhibits a normal phasic waveform, bilaterally; this suggests that the iliac veins are widely patent above. Within each proximal thigh, the visualized profunda femoris vein is patent. The visualized greater saphenous veins and saphenofemoral junctions are normal. Superficial femoral vein is patent in the proximal, mid and distal aspect of each thigh. Popliteal vein is normal to the level of the trifurcation, bilaterally, and the visualized posterior tibial and peroneal veins are patent. No evidence of Bryan's cyst. US/US venous duplex LE BI IMPRESSION: No evidence of deep vein thrombosis in either lower extremity.
--- NOTE | ~2022-06-05 | XR_ITS ---
EXAMINATION: XR CHEST CLINICAL INFORMATION: Syncope. Dizziness COMPARISON: July 04, 2021 TECHNIQUE: 2 views of the chest were obtained. FINDINGS: No significant abnormality is noted involving the heart, lungs, mediastinum, bony thorax or soft tissues. Patient status post left neck surgery. XR/XR chest 2V IMPRESSION: No acute disease.
--- NOTE | 2022-06-05 11:33 | ECG_ITS ---
Test Reason : SYNCOPE Blood Pressure : / mmHG Vent. Rate : 096 BPM Atrial Rate : 096 BPM P-R Int : 136 ms QRS Dur : 086 ms QT Int : 334 ms P-R-T Axes : 055 -33 030 degrees QTc Int : 421 ms Normal sinus rhythm Left anterior fascicular block RSR' or QR pattern in V1 suggests right ventricular conduction delay Abnormal ECG When compared with ECG of 21-OCT-2021 12:09, No significant change was found Referred By: Ashley Gregory Electronically Signed By:IRINA VILLARREAL MD
[2022-06-05 11:35] LABS: Glucose, Whole Blood 95 mg/dL (60-115)
[2022-06-05 12:00] LABS: MANUAL DIFF FLAG NO
[2022-06-05 12:03] LABS: Basophils Absolute Auto 0.1 X10*3/uL (0.0-0.2); Basophils Percent Auto 1.1 % (0-2); Eosinophils Absolute Auto 0.2 X10*3/uL (0.0-0.4); Eosinophils Percent Auto 2.1 % (0-4); Hematocrit 42.2 % (37.0-47.0); Hemoglobin 14.4 g/dl (12.0-16.0); Imm Gran Abs Auto 0.03 X10*3/uL (0.00-0.03); Imm Gran Pct Auto 0.4 % (0.0-0.4); Lymphocytes Absolute Auto 3.2 X10*3/uL (1.2-4.9); Mean Corpuscular HGB Conc 34.1 g/dl (31.0-35.0); Mean Corpuscular Hemoglobin 30.6 pg (27.0-33.0); Mean Corpuscular Volume 89.8 fL (80.0-98.0); Mean Platelet Volume 9.5 fL (9.4-12.3); Monocytes Absolute Auto 0.5 X10*3/uL (0.1-1.2); Monocytes Percent Auto 5.4 % (2-11); Neutrophils Absolute Auto 4.6 x10*3/uL (2.0-8.3); Platelet Count 323 X10*3/uL (160-400); Red Cell Distribution Width 12.1 % (11.0-16.0); White Blood Count 8.6 X10*3/uL (4.8-10.8)
[2022-06-05 12:14] LABS: INTERNATIONAL NORM RATIO 0.9 (0.9-1.1)
[2022-06-05 12:17] LABS: Alanine Aminotransferase 28 U/L (0-31); Albumin Level 4.7 g/dL (3.5-5.0); Alkaline Phosphatase 145 U/L (39-117); Anion Gap 17 (12-20); Aspartate Amino Transferase 22 U/L (5-31); Bilirubin Total 0.5 mg/dL (0.0-1.0); Blood Urea Nitrogen 12 mg/dL (9-16); Carbon Dioxide 21 mmol/L (22-29); Chloride 107 mmol/L (96-108); Creatinine Clr Calc Pharmacy 66.8; Estimated Glomerular Filt Rate > 60; Glucose Random 98 mg/dL (60-115); Potassium 4.3 mmol/L (3.3-5.1); Sodium 141 mmol/L (135-145); Total Protein 7.1 g/dL (6.5-8.0)
[2022-06-05 12:17] LABS: Appearance Urine Clear; Color Urine Yellow; Glucose Urine UA Negative (Negative); Leukocyte Esterase Urine Negative (Negative); Nitrite Urine Negative (Negative); PH 5.5 (5.0-9.0); Specific Gravity - Urine <= 1.005 (1.005-1.025); Urine Blood Negative (Negative); Urine Ketones Negative (Negative); Urine Protein Negative (Neg-Trace)
[2022-06-05] MEDS: 0.9 % Sodium Chloride 1,000 ML 999 ML IVCONT (12:23)
[2022-06-05 12:26] LABS: Troponin-I High Sensitivity < 3.5 ng/L (<3.5-17.0)
[2022-06-05 12:43] LABS: HCG Quantitative 4 mIU/mL
--- NOTE | 2022-06-05 13:04 | ED_ITS ---
HPI - Syncope General Chief Complaint: Syncope Stated Complaint: syncope Time Seen by Provider: 06/05/22 11:13 Source: patient and EMS Mode of arrival: EMS Limitations: no limitations History of Present Illness HPI narrative: 51-year-old female with a past medical history of allergic rhinitis, anxiety, arthritis, asthma, B12 deficiency anxiety and depression, diabetes, dyslipidemia, fibromyalgia, GERD, asthma, incontinence, nontoxic multinodular goiter, obesity, pancreatic insufficiency, restless leg syndrome and vertigo currently on medications for vertigo being followed by Dr. Devine she presenting to the ED via EMS after she had a syncopal episode that occurred at [facility] prior to arrival that lasted at least 25 seconds then she was able to sit up and get into a chair and yhen she loss consciousness again for approximately 10 seconds. This was witnessed by bystanders. Patient reports that over the past week she has been having a posterior headache that radiates to the front of her head with associated dizziness that has been constant usually worse when she is ambulating. She reports this is why she went to the neurologist on Tuesday06/04/22 for the symptoms. They sent a new prescription for meclizine and she reports she is taking that as prescribed and no symptomatic relief. Then she tried to go to her primary care's office as a walk-in and they were not accepting any patients. Today she was at [facility] and she was feeling already dizzy like everything was spinning around her and like she was spinning she checked her blood glucose level which was 75 she was trying to make it to the line to pay for her groceries and the last thing she remembers was the guide telling her to put herself on the klein to ring her up and patient woke up laying down on the floor. She reports that she was told that the catch year was able to lower her down to the ground and she did not hit her head. There was no prolonged down time. She reports the dizziness is worsened when she stands, ambulates when she turns her head from side to side. She is also notice she has had blurry vision. She reports associated nausea and chest pain along with shortness of breath. She denies any recent falls or head injury, she is not on any blood thinners, she denies any recent tick bites that she is aware of, any fevers, ear pain, sore throat, vomiting, abdominal pain, back pain, flank pain, dysuria, hematuria, abnormal vaginal discharge, lower extremity edema or calf tenderness, recent travel or sick contacts she is aware of, hypercoagulation disorder that she is aware of, any estrogen usage, history of DVT or PE, recent immobilization or surgery, history of cancer or any other symptoms complaints or concerns at this time. 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) -: second(s) Prodromal symptoms: headache, vision changes, lightheaded, chest pain, shortness of breath and vertigo Witnessed: Yes - by Bystander Context: during exertion Injuries sustained associated with event: none Current symptoms: lightheaded, vertigo, headache, chest pain, shortness of breath and nausea History: other (See above) Treatments prior to arrival: none Related Data Home Medications Medication Instructions Recorded Confirmed clonazepam 1 mg tablet 1 mg PO BID 04/28/20 10/17/21 zolpidem 10 mg tablet 10 mg PO BEDTIME PRN Insomnia 07/20/21 10/17/21 topiramate 50 mg tablet 50 mg PO BID 10/28/21 Previous Rx's Medication Instructions Recorded fluticasone propionate 50 1 spray intranasal DAILY #16 caps 06/20/20 mcg/actuation nasal spray,suspension mirabegron 25 mg tablet,extended 25 mg PO DAILY #30 tabs 10/06/20 release 24 hr (Myrbetriq) insulin degludec 100 unit/mL (3 18 unit (0.18 mL) subcut BEDTIME 12/24/20 mL) subcutaneous pen (Tresiba days #30 mL FlexTouch U-100 insulin) incontinence pad #120 ea 01/28/21 albuterol sulfate 90 mcg/actuation 2 puff inhalation Q6H PRN 01/28/21 aerosol inhaler (ProAir HFA) shortness of breath or wheezing #18 grams cane with quad tips #1 ea 01/28/21 albuterol sulfate 90 mcg/actuation 1 inh inhalation QID PRN shortness 06/21/21 aerosol inhaler of breath or wheezing #6.7 grams metformin 750 mg tablet,extended 750 mg PO BID 90 days #180 tabs 07/07/21 release 24 hr cetirizine 10 mg tablet 10 mg PO DAILY #90 tabs 09/28/21 duloxetine 30 mg capsule,delayed 30 mg PO BID #180 caps 09/28/21 release fluticasone 250 mcg-salmeterol 50 1 inh inhalation BID #180 ea 09/28/21 mcg/dose blistr powdr for inhalation (Advair Diskus) ropinirole 0.5 mg tablet 0.5 mg PO BEDTIME #90 caps 10/29/21 blood sugar diagnostic #300 ea 11/25/21 lancets 28 gauge #300 ea 11/25/21 polyethylene glycol 3350 17 17 g PO DAILY #510 grams 12/04/21 gram/dose oral powder (Miralax) cholecalciferol (vitamin D3) 25 25 mcg PO DAILY #30 caps 12/21/21 mcg (1,000 unit) tablet omeprazole 20 mg capsule,delayed 20 mg PO QAM gerd #30 caps 03/19/22 release dulaglutide 3 mg/0.5 mL 3 mg (0.5 mL) subcut QWEEK 30 days 04/19/22 subcutaneous [facility] ezetimibe 10 mg tablet 10 mg PO DAILY #90 caps 04/19/22 cholestyramine-aspartame 4 gram 4 g PO BID #231 grams 05/05/22 oral powder (Cholestyramine Light) ejlrso-cvwzbjcx-azuewyw 1 cap PO QID #120 caps 05/05/22 12,000-38,000-60,000 unit capsule,delayed rel (Creon) methylcellulose (laxative) 500 mg 500 mg PO DAILY #90 tabs 05/05/22 tablet (Citrucel) sennosides 8.6 mg tablet (Natural 8.6 mg PO BEDTIME constipation #90 05/05/22 Senna Laxative) tabs pen needle, diabetic 32 gauge x #100 ea 05/17/22 (BD Vanessa 2nd Gen Pen Needle) gabapentin 400 mg capsule 400 mg PO TID 30 days #90 caps 05/18/22 tizanidine 4 mg tablet 4 mg PO TID PRN for muscle spasm 05/18/22 #30 tabs meclizine 12.5 mg tablet 12.5 mg PO DAILY PRN dizziness #20 06/04/22 tabs Allergies Allergy/AdvReac Type Severity Reaction Status Date / Time aspirin Allergy Intermediate rash Verified 06/04/22 09:27 latex [LATEX] Allergy Mild HIVES/RASH Verified 06/04/22 09:27 Penicillins Allergy Mild unknown Verified 06/04/22 09:27 amoxicillin AdvReac Intermediate diarrhea Verified 06/04/22 09:27 Beef Containing Products AdvReac Intermediate DIARRHEA/VO Verified 06/04/22 09:27 MITING [employer] Allergy Intermediate inflammation Uncoded 06/04/22 09:27 and swelling Review of Systems Review of Systems: Constitutional : No Fever, No Chills, No Night Sweats, No Fatigue, No Malaise ENT/Mouth : No Ear Pain, No Nasal Congestion, No Sinus Pain, No sore throat, No Rhinorrhea Eyes: No Eye Pain, No Swelling, No Redness, No Foreign Body, No Discharge, + bl urry vision/Vision Changes Cardiovascular : + Chest Pain, + SOB, + Dyspnea on Exertion, + Orthopnea, No Palpitations Respiratory : No Cough, No Sputum, No Wheezing, No Dyspnea Gastrointestinal : No Nausea, No Vomiting, No Diarrhea, No Constipation, No abdominal Pain, No Hematochezia, No Melena Genitourinary : No Dysuria, No Urinary Frequency, No Urinary Incontinence, No Urgency, No Flank Pain Musculoskeletal : No joint pain, No Myalgias Skin : No lacerations Neuro : + dizziness/headache, + syncope/loss of consciousness, No Focal weakness, no general weakness, No Numbness, No Paresthesias Yes all other systems are reviewed and are negative [facility] Past Medical History Attestation statement: The following information was validated with the patient. Source: old records reviewed and nursing notes reviewed Medical History Allergic rhinitis Anxiety Arthritis Asthma B12 deficiency Cigarette smoker motivated to quit COVID-19 vaccination declined Decreased hearing of right ear Depression with anxiety Diabetes Dyslipidemia Fibromyalgia GERD (gastroesophageal reflux disease) Mild intermittent asthma Mixed stress and urge incontinence Non-toxic multinodular goiter Obesity (BMI 30-39.9) Pancreatic insufficiency Pelvic pain Restless leg syndrome Tinnitus of right ear Type 2 diabetes mellitus with microalbuminuria, with long-term current use of insulin Vertigo Surgical History History of esophagogastroduodenoscopy (EGD) Hx of appendectomy Hx of BSO (bilateral salpingo-oophorectomy) Hx of section Hx of cholecystectomy Hx of colonoscopy Hx of laparoscopy Family History Family History Father Diabetes mellitus Heart murmur Mother Diabetes mellitus HTN (hypertension) Glaucoma Melanoma Social History Social History Housing: Apartment Alcohol intake: never Patient Tobacco Use Status: Former Tobacco user Quit Date: 3 months ago Cigarettes Per Day: 5 Years Smoked: 34 Smoked in Last 30 Days: No e-Cigarette/Vaping Use: Never Used Use of substances other than those prescribed or required for medical reasons: No Advance Directives: No Advance Directives Information Provided: Yes Patient : No Current occupational status: unemployed Sexual orientation: Straight/Heterosexual Gender identity: Female Physical Exam Vital Signs: Vital Signs: Last Vital Signs Temp 99.0 F 06/05/22 11:33 Pulse 94 06/05/22 14:24 Resp 14 06/05/22 14:11 BP 132/78 06/05/22 14:24 Pulse Ox 99 06/05/22 14:11 O2 Del Method 06/05/22 14:11 BMI result Body Mass Index 24.7 Vital signs have been reviewed as normal and appeared to be correct. Blood pressure 139/90. Heart rate 105. Respiration rate normal. Temperature normal. Oxygen saturation normal. Appearance: Alert. Oriented X3. No acute distress. Head: Normal external exam. Normocephalic. Atraumatic. Able to rotate head bilaterally. Eyes: PERRLA. EOMI. No nystagmus noted. Conjunctiva and sclera normal. Eyelids normal. Corneal reflex normal. ENT: EAC normal. TM's Normal. Hearing normal. Pharynx normal. Uvula midline. tongue midline. Moist mucous membranes. No trismus noted. No drooling noted. No muffled voice noted. No nystagmus noted. Neck: Normal inspection. Neck supple. FROM. No adenopathy. Trachea midline. Thyroid Normal. No meningeal signs. No neck mass noted. CVS: Normal heart rate and rhythm. Heart sound normal. No murmurs noted. Pulses normal throughout. Respiratory: No respiratory distress. Painless inspiration. Breath sounds normal. No wheezes/rales/rhonchi noted. Chest nontender. No accessory muscle usage noted or decreased air movement noted. Abdomen: Soft and nontender. Bowel sounds normal in all 4 quadrants. No distention noted. No organomegaly noted. No visible injury noted. Back: No CVA tenderness. Full range of motion noted. Skin: Skin warm and dry. Normal skin color. Normal skin turgor. No shahla hes/lesions/lacerations noted. Extremities: No lower extremity edema. Extremities exhibit normal range of motion. Extremities nontender. Able to shrug shoulders bilaterally and keep up against resistance. Neuro: Oriented X 3. No motor deficit. No sensory deficit. Reflexes normal. Moving all extremities. No focal motor deficits. Cranial nerves II-XI intact bilaterally. Facial strength normal. Normal cognition. Speech normal. Gait normal. Strength 5/5 throughout. No pronator drift. No tremor noted. No fasciculations noted. No rigidity noted. Muscle tone normal throughout. No asterixis noted. Oeyhdo-ow-dsfx test normal. Heel to akins test normal. Tandem gait normal. Does not sway with eyes open. Romberg test negative. Rapid alternating movement upper extremity normal. Rapid alternating movement lower extremity normal. Hand drop from overhead Misses face. NIHSS score 0. Course Course Course Narrative: 11:30pm - 51yoF c PMHx of allergic rhinitis, anxiety, arthritis, asthma, B12 deficiency anxiety and depression, diabetes, dyslipidemia, fibromyalgia, GERD, asthma, incontinence, nontoxic multinodular goiter, obesity, pancreatic insufficiency, restless leg syndrome and vertigo currently on Meclizine for vertigo being followed by Dr. Devine presenting to the ED via EMS after she had a syncopal episode that occurred at 1 more prior to arrival that lasted approximately 25 seconds and she was able to set up and get into a chair that she lost consciousness again for approximately 10 seconds. This was witnessed by bystanders. She denies any injuries from this. She reports that she has been having some dizziness where she feels like she is spitting in the room is spin theresa with associated blurry vision an a headache that starts in her posterior aspect of her head and radiates to the front of her head that has been persistent for the past week. Which is continuing to worsen. She reports associated chest pain, shortness of breath, dyspnea on exertion and nausea. She denies any other symptoms. On exam patient is alert and oriented x3. Not in any acute distress. No focal neural that are noted. Lungs clear to auscultation. CV RRR. Abdomen is soft and nontender. No lower extremity edema or calf tenderness is noted. No focal neuro deficits are noted. NIH SS score 0. Patient is not a tPA candidate as patient has non disabling symptoms. She was able to get up to walk to the bathroom on her own although reports dizziness. Plan: Labs, EKG, chest x-ray, CT scan of brain/cervical spine and CT of chest for PE, orthostatic vitals provide a L IV fluid Provide the patient 50 mg of meclizine and 4 mg of Zofran and re-evaluate. Reevaluation(s) Reevaluation #1: - Labs reviewed and patient's blood glucose level 145. Serum quant 4. UA within normal limits no evidence of UTI. - Urine negative. - Orthostatic vitals negative. - awaiting repeat trop CT scan of brain, CT scan of cervical spine, CT of chest for PE Time: 13:28 Reevaluation #2: - CT scan of brain/cervical spine within normal limits no acute processes noted. - CTA for PE positive for PE. No right heart strain and patient is stable. Patient did not want to stay although I was able to convince her to stay here to be admitted. - She will be admitted by Dr. Kramer for pulmonary embolism with syncope. Reports extensive family hx of cancer Time: 16:23 Medications Administered Discontinued Medications Generic Name Dose Route Start Last Admin Trade Name Freq PRN Reason Stop Dose Admin Sodium Chloride 1,000 mls @ 999 mls/hr 06/05/22 11:45 06/05/22 13:56 Ns IVCONT 06/05/22 12:45 Infused .Q1H1M BELLE Infusion Iohexol 100 ml 06/05/22 14:25 06/05/22 14:26 Iohexol 350 Mg/Ml 100 Ml Infus..Btl IV 06/05/22 14:26 65 ml ONCE ONE Administration Meclizine HCl 50 mg 06/05/22 13:13 06/05/22 14:09 Meclizine Hcl 25 Mg Tablet PO 06/05/22 13:14 50 mg ONCE ONE Administration Ondansetron HCl 4 mg 06/05/22 13:13 06/05/22 14:09 Ondansetron Hcl 4 Mg/2 Ml Vial IVPUSH 06/05/22 13:14 4 mg ONCE ONE Administration MDM - Syncope Medical Records Attestation: I reviewed the patient's medical records. Lab Data Attestation: I reviewed the patient's lab results. Result diagrams: 06/05/22 11:53 06/05/22 11:53 Labs: Lab Results 06/05/22 06/05/22 06/05/22 Range/Units 11:31 11:53 11:53 WBC 8.6 (4.8-10.8) X10*3/uL RBC 4.70 (4.20-5.50) X10*6/uL Hgb 14.4 (12.0-16.0) g/dl Hct 42.2 (37.0-47.0) % MCV 89.8 (80.0-98.0) fL MCH 30.6 (27.0-33.0) pg MCHC 34.1 (31.0-35.0) g/dl RDW 12.1 (11.0-16.0) % Plt Count 323 (160-400) X10*3/uL MPV 9.5 (9.4-12.3) fL Immature Gran % (Auto) 0.4 (0.0-0.4) % Neut % (Auto) 54.0 (45-73) % Lymph % (Auto) 37.0 (20-40) % Pettis % (Auto) 5.4 (2-11) % Eos % (Auto) 2.1 (0-4) % Baso % (Auto) 1.1 (0-2) % Lymph # (Auto) 3.2 (1.2-4.9) X10*3/uL Pettis # (Auto) 0.5 (0.1-1.2) X10*3/uL Eos # (Auto) 0.2 (0.0-0.4) X10*3/uL Baso # (Auto) 0.1 (0.0-0.2) X10*3/uL Abs Immat Gran (auto) 0.03 (0.00-0.03) X10*3/uL Absolute Neuts (auto) 4.6 (2.0-8.3) x10*3/uL Absolute Nucleated RBC 0.000 (0.0-0.012) X10*3/uL Nucleated RBC % (auto) 0.0 (0.0-0.2) /100WBC PT 10.0 (10.0-13.1) SEC INR 0.9 (0.9-1.1) Sodium (135-145) mmol/L Potassium (3.3-5.1) mmol/L Chloride (96-108) mmol/L Carbon Dioxide (22-29) mmol/L Anion Gap (12-20) BUN (9-16) mg/dL Creatinine (0.5-1.4) mg/dL Estim Creat Clear Calc Estimated GFR POC Glucose 95 (60-115) mg/dL Random Glucose (60-115) mg/dL Calcium (8.4-10.2) mg/dL Magnesium (1.6-2.6) mg/dL Total Bilirubin (0.0-1.0) mg/dL AST (5-31) U/L ALT (0-31) U/L Alkaline Phosphatase (39-117) U/L Troponin I High Sens (<3.5-17.0) ng/L Total Protein (6.5-8.0) g/dL Albumin (3.5-5.0) g/dL Beta HCG, Quant mIU/mL Urine Color Urine Appearance Urine pH (5.0-9.0) Ur Specific Holland (1.005-1.025) Urine Protein (Neg-Trace) mg/dL Urine Glucose (UA) (Negative) mg/dL Urine Ketones (Negative) mg/dL Urine Blood (Negative) Urine Nitrite (Negative) Ur Leukocyte Esterase (Negative) Urine Test (NEGATIVE) COVID-19 (RONALDO) (Negative) COVID-19 Clin Com 06/05/22 06/05/22 06/05/22 Range/Units 11:53 11:53 11:53 WBC (4.8-10.8) X10*3/uL RBC (4.20-5.50) X10*6/uL Hgb (12.0-16.0) g/dl Hct (37.0-47.0) % MCV (80.0-98.0) fL MCH (27.0-33.0) pg MCHC (31.0-35.0) g/dl RDW (11.0-16.0) % Plt Count (160-400) X10*3/uL MPV (9.4-12.3) fL Immature Gran % (Auto) (0.0-0.4) % Neut % (Auto) (45-73) % Lymph % (Auto) (20-40) % Pettis % (Auto) (2-11) % Eos % (Auto) (0-4) % Baso % (Auto) (0-2) % Lymph # (Auto) (1.2-4.9) X10*3/uL Pettis # (Auto) (0.1-1.2) X10*3/uL Eos # (Auto) (0.0-0.4) X10*3/uL Baso # (Auto) (0.0-0.2) X10*3/uL Abs Immat Gran (auto) (0.00-0.03) X10*3/uL Absolute Neuts (auto) (2.0-8.3) x10*3/uL Absolute Nucleated RBC (0.0-0.012) X10*3/uL Nucleated RBC % (auto) (0.0-0.2) /100WBC PT (10.0-13.1) SEC INR (0.9-1.1) Sodium 141 (135-145) mmol/L Potassium 4.3 (3.3-5.1) mmol/L Chloride 107 (96-108) mmol/L Carbon Dioxide 21 L (22-29) mmol/L Anion Gap 17 (12-20) BUN 12 (9-16) mg/dL Creatinine 0.86 (0.5-1.4) mg/dL Estim Creat Clear Calc 66.8 Estimated GFR > 60 POC Glucose (60-115) mg/dL Random Glucose 98 (60-115) mg/dL Calcium 10.0 (8.4-10.2) mg/dL Magnesium 2.0 (1.6-2.6) mg/dL Total Bilirubin 0.5 (0.0-1.0) mg/dL AST 22 (5-31) U/L ALT 28 (0-31) U/L Alkaline Phosphatase 145 H (39-117) U/L Troponin I High Sens < 3.5 (<3.5-17.0) ng/L Total Protein 7.1 (6.5-8.0) g/dL Albumin 4.7 (3.5-5.0) g/dL Beta HCG, Quant 4 mIU/mL Urine Color Urine Appearance Urine pH (5.0-9.0) Ur Specific Holland (1.005-1.025) Urine Protein (Neg-Trace) mg/dL Urine Glucose (UA) (Negative) mg/dL Urine Ketones (Negative) mg/dL Urine Blood (Negative) Urine Nitrite (Negative) Ur Leukocyte Esterase (Negative) Urine Test (NEGATIVE) COVID-19 (RONALDO) (Negative) COVID-19 Clin Com 06/05/22 06/05/22 06/05/22 Range/Units 12:11 12:11 15:56 WBC (4.8-10.8) X10*3/uL RBC (4.20-5.50) X10*6/uL Hgb (12.0-16.0) g/dl Hct (37.0-47.0) % MCV (80.0-98.0) fL MCH (27.0-33.0) pg MCHC (31.0-35.0) g/dl RDW (11.0-16.0) % Plt Count (160-400) X10*3/uL MPV (9.4-12.3) fL Immature Gran % (Auto) (0.0-0.4) % Neut % (Auto) (45-73) % Lymph % (Auto) (20-40) % Pettis % (Auto) (2-11) % Eos % (Auto) (0-4) % Baso % (Auto) (0-2) % Lymph # (Auto) (1.2-4.9) X10*3/uL Pettis # (Auto) (0.1-1.2) X10*3/uL Eos # (Auto) (0.0-0.4) X10*3/uL Baso # (Auto) (0.0-0.2) X10*3/uL Abs Immat Gran (auto) (0.00-0.03) X10*3/uL Absolute Neuts (auto) (2.0-8.3) x10*3/uL Absolute Nucleated RBC (0.0-0.012) X10*3/uL Nucleated RBC % (auto) (0.0-0.2) /100WBC PT (10.0-13.1) SEC INR (0.9-1.1) Sodium (135-145) mmol/L Potassium (3.3-5.1) mmol/L Chloride (96-108) mmol/L Carbon Dioxide (22-29) mmol/L Anion Gap (12-20) BUN (9-16) mg/dL Creatinine (0.5-1.4) mg/dL Estim Creat Clear Calc Estimated GFR POC Glucose (60-115) mg/dL Random Glucose (60-115) mg/dL Calcium (8.4-10.2) mg/dL Magnesium (1.6-2.6) mg/dL Total Bilirubin (0.0-1.0) mg/dL AST (5-31) U/L ALT (0-31) U/L Alkaline Phosphatase (39-117) U/L Troponin I High Sens < 3.5 (<3.5-17.0) ng/L Total Protein (6.5-8.0) g/dL Albumin (3.5-5.0) g/dL Beta HCG, Quant mIU/mL Urine Color Yellow Urine Appearance Clear Urine pH 5.5 (5.0-9.0) Ur Specific Holland <= 1.005 (1.005-1.025) Urine Protein Negative (Neg-Trace) mg/dL Urine Glucose (UA) Negative (Negative) mg/dL Urine Ketones Negative (Negative) mg/dL Urine Blood Negative (Negative) Urine Nitrite Negative (Negative) Ur Leukocyte Esterase Negative (Negative) Urine Test NEGATIVE (NEGATIVE) COVID-19 (RONALDO) (Negative) COVID-19 Clin Com 06/05/22 Range/Units 15:56 WBC (4.8-10.8) X10*3/uL RBC (4.20-5.50) X10*6/uL Hgb (12.0-16.0) g/dl Hct (37.0-47.0) % MCV (80.0-98.0) fL MCH (27.0-33.0) pg MCHC (31.0-35.0) g/dl RDW (11.0-16.0) % Plt Count (160-400) X10*3/uL MPV (9.4-12.3) fL Immature Gran % (Auto) (0.0-0.4) % Neut % (Auto) (45-73) % Lymph % (Auto) (20-40) % Pettis % (Auto) (2-11) % Eos % (Auto) (0-4) % Baso % (Auto) (0-2) % Lymph # (Auto) (1.2-4.9) X10*3/uL Pettis # (Auto) (0.1-1.2) X10*3/uL Eos # (Auto) (0.0-0.4) X10*3/uL Baso # (Auto) (0.0-0.2) X10*3/uL Abs Immat Gran (auto) (0.00-0.03) X10*3/uL Absolute Neuts (auto) (2.0-8.3) x10*3/uL Absolute Nucleated RBC (0.0-0.012) X10*3/uL Nucleated RBC % (auto) (0.0-0.2) /100WBC PT (10.0-13.1) SEC INR (0.9-1.1) Sodium (135-145) mmol/L Potassium (3.3-5.1) mmol/L Chloride (96-108) mmol/L Carbon Dioxide (22-29) mmol/L Anion Gap (12-20) BUN (9-16) mg/dL Creatinine (0.5-1.4) mg/dL Estim Creat Clear Calc Estimated GFR POC Glucose (60-115) mg/dL Random Glucose (60-115) mg/dL Calcium (8.4-10.2) mg/dL Magnesium (1.6-2.6) mg/dL Total Bilirubin (0.0-1.0) mg/dL AST (5-31) U/L ALT (0-31) U/L Alkaline Phosphatase (39-117) U/L Troponin I High Sens (<3.5-17.0) ng/L Total Protein (6.5-8.0) g/dL Albumin (3.5-5.0) g/dL Beta HCG, Quant mIU/mL Urine Color Urine Appearance Urine pH (5.0-9.0) Ur Specific Holland (1.005-1.025) Urine Protein (Neg-Trace) mg/dL Urine Glucose (UA) (Negative) mg/dL Urine Ketones (Negative) mg/dL Urine Blood (Negative) Urine Nitrite (Negative) Ur Leukocyte Esterase (Negative) Urine Test (NEGATIVE) COVID-19 (RONALDO) Negative (Negative) COVID-19 Clin Com See Note Imaging Data Chest x-ray: Attestation: I personally reviewed and interpreted this imaging study as follows: Radiologist's impression: FINDINGS: No significant abnormality is noted involving the heart, lungs, mediastinum, bony thorax or soft tissues. Patient status post left neck surgery. XR/XR chest 2V IMPRESSION: No acute disease. CT scan - head: Attestation: I personally reviewed and interpreted this imaging study as follows: Radiologist's impression: FINDINGS: HEAD: There is no intracranial hemorrhage, hydrocephalus, extra-axial surface collection, midline shift, or other herniation pattern. Holman to white matter differentiation is diffusely maintained without evidence of an evolved acute territorial infarct. The basilar cisterns are preserved. No significant soft tissue abnormality. No acute osseous abnormality. The paranasal sinuses and the mastoid air cells are well aerated. CERVICAL SPINE: There is anatomic alignment of the vertebral bodies and posterior elements. There is no acute fracture and there is no acute subluxation. The craniocervical and atlantoaxial articulations are normal. There is no prevertebral soft tissue swelling. Imaged upper lungs are clear. Left thyroidectomy changes with surgical clips within the left sacral space. CT/CT head/brain wo IV con IMPRESSION: - No acute intracranial findings. ? - No acute osseous findings within the cervical spine. CTA of chest for PE: Attestation: I personally reviewed and interpreted this imaging study as follows: Radiologist's impression: FINDINGS: PULMONARY ARTERIES: Suboptimal study, the pulmonary artery is not well opacified, the contrast in the pulmonary arteries is less dense than the aorta. There is a filling defect in a branch of left pulmonary artery to the left lower lobe this is probably nonocclusive embolus however difficult to well visualized due to suboptimal opacification of the pulmonary artery. Suboptimal enhancement of secondary branch of the right pulmonary artery to the right lower lobe could be artifacts. LINES/TUBES: None LUNGS: Lung Parenchyma: There is no CT evidence of significant lung parenchymal disease. Lung Nodules:There are no significant lung nodules. AIRWAYS: Trachea and bronchi are normal. PLEURA: No pleural effusion or pneumothorax. MEDIASTINUM AND TOMEKA: The visualized thyroid gland is unremarkable. No mediastinal, hilar or axillary lymphadenopathy. ? There is no mediastinal mass. VESSELS: Thoracic aorta is normal in size. HEART AND PERICARDIUM: Heart is normal in size. There is no pericardial effusion. There are no coronary calcifications. CHEST WALL, LOWER NECK, SURROUNDING SOFT TISSUES: Normal VISUALIZED ABDOMEN: Status post cholecystectomy otherwise included upper abdomen unremarkable. BONES: The visualized bony thorax is within normal limits. CT/CT angio chest PE protocol IMPRESSION: 1.? Suboptimal study, the contrast in the pulmonary arteries is less dense than the aorta. 2.? There is a filling defect in a branch of left pulmonary artery to the left lower lobe this is probably nonocclusive embolus however difficult to visualized due to suboptimal opacification of the pulmonary artery. Unless there is a contraindication, would recommend anticoagulate, consider follow-up CT angiogram in 48 hours with 100 mL of contrast and time bolus imaging. 3.? No CT evidence of pulmonary infarct. ? (Referring physician staff is being called, to be alerted of the above findings and recommendations.) TC ECG Data Attestation: I personally reviewed and interpreted this ECG as follows: ECG interpretation date: 06/05/22 ECG interpretation time: 12:18 Interpretation: Normal sinus rhythm with a ventricular rate of 96 with a left axis deviation no acute ischemic change are noted. Similar compared to prior EKG 10/21/2021. Critical Care Time Critical Care Time Critical Care Time: Yes Total Critical Care Time: 60 Attestation: I personally attest to this time spent taking care of the patient Discharge Plan Discharge Clinical Impression: Pulmonary embolism, Syncope, Dizziness, Nausea, Blurred vision Patient Disposition: Admitted As Inpatient
[2022-06-05 14:03] LABS: UPreg QC Valid YES; Urine Pregnancy NEGATIVE (NEGATIVE)
[2022-06-05] MEDS: Meclizine HCl 25 MG TABLET 50 MG PO (14:09)
[2022-06-05] MEDS: ondansetron HCL 4 MG/2 ML VIAL IVPUSH (14:09)
[2022-06-05] MEDS: iohexoL 350 MG/ML 100 ML INFUS..BTL IV (14:26)
[2022-06-05 16:21] LABS: COVID-19 Test Negative (Negative)
[2022-06-05 16:26] LABS: Troponin-I High Sensitivity < 3.5 ng/L (<3.5-17.0)
[2022-06-05] MEDS: Nicotine 21 MG PATCH.TD24 TRANSDERMA (16:42)
[2022-06-05] MEDS: Enoxaparin Sodium 80 MG/0.8 ML SYRINGE 70 MG SUBCUT (16:44)
--- NOTE | 2022-06-05 16:48 | PM.IMHP ---
History of Present Illness Date of Service: 06/05/22 Chief Complaint: Pulmonary Emboli 51-year-old female presents to the ER via EMS after she had a syncopal episode that lasted approximately 25 seconds; was able to sit up but then again lost consciousness for 10 seconds apparently witnessed by bystanders when queried patient reports that she has ongoing problems with dizziness and headache for which she saw Neurology; meclizine was prescribed with no affect. She states her dizziness is worse when she stands and walks and will resolve when she sits briefly she reports worsening shortness of breath over the last week; she has a 1/2-1 pack a day smoker. She denies leg pain or trauma. When queried about clotting no family history of clotting however she did have a miscarriage. She was given Lovenox she will be observed overnight and maintained on Lovenox. Review of Systems Review of Systems: Denies chest pain Admits to shortness of breath that is worse with ambulation Admits to nausea in the absence of vomiting Denies fever chills PMFSH Medical History Allergic rhinitis Anxiety Arthritis Asthma B12 deficiency Cigarette smoker motivated to quit COVID-19 vaccination declined Decreased hearing of right ear Depression with anxiety Diabetes Dyslipidemia Fibromyalgia GERD (gastroesophageal reflux disease) Mild intermittent asthma Mixed stress and urge incontinence Non-toxic multinodular goiter Obesity (BMI 30-39.9) Pancreatic insufficiency Pelvic pain Restless leg syndrome Tinnitus of right ear Type 2 diabetes mellitus with microalbuminuria, with long-term current use of insulin Vertigo Family History Father Diabetes mellitus Heart murmur Mother Diabetes mellitus HTN (hypertension) Glaucoma Melanoma Surgical History History of esophagogastroduodenoscopy (EGD) Hx of appendectomy Hx of BSO (bilateral salpingo-oophorectomy) Hx of section Hx of cholecystectomy Hx of colonoscopy Hx of laparoscopy Social History Housing: Apartment Alcohol intake: never Patient Tobacco Use Status: Former Tobacco user Quit Date: 3 months ago Cigarettes Per Day: 5 Years Smoked: 34 Smoked in Last 30 Days: No e-Cigarette/Vaping Use: Never Used Use of substances other than those prescribed or required for medical reasons: No Advance Directives: No Advance Directives Information Provided: Yes Patient : No Current occupational status: unemployed Sexual orientation: Straight/Heterosexual Gender identity: Female Meds Allergies Allergy/AdvReac Type Severity Reaction Status Date / Time aspirin Allergy Intermediate rash Verified 06/04/22 09:27 latex [LATEX] Allergy Mild HIVES/RASH Verified 06/04/22 09:27 Penicillins Allergy Mild unknown Verified 06/04/22 09:27 amoxicillin AdvReac Intermediate diarrhea Verified 06/04/22 09:27 Beef Containing Products AdvReac Intermediate DIARRHEA/VO Verified 06/04/22 09:27 MITING [employer] Allergy Intermediate inflammation Uncoded 06/04/22 09:27 and swelling Active Medications: Current Medications Acetaminophen (Acetaminophen 325 Mg Tablet) 650 mg PO Q6H PRN PRN Reason: Pain, Mild (Pain Scale 1-3) Enoxaparin Sodium (Enoxaparin Sodium 80 Mg/0.8 Ml Syringe) 70 mg 1 mg/kg (70 mg) SUBCUT Q12H BELLE Ondansetron HCl (Ondansetron Hcl 4 Mg/2 Ml Vial) 4 mg IVPUSH Q8H PRN PRN Reason: Nausea and Vomiting Pharmacy Consult (Consult Rx Perform Med Rec) 1 each MISCELLANE ONCE PRN PRN Reason: Consult order Sodium Chloride (0.9 % Sodium Chloride Flush 3 Ml Syringe) 3 ml IVFLUSH QSHIFT [facility] Home Medications Medication Instructions Recorded Confirmed Last Taken Type clonazepam 1 mg tablet 1 mg PO BID 04/28/20 10/17/21 Unknown History zolpidem 10 mg tablet 10 mg PO BEDTIME PRN Insomnia 07/20/21 10/17/21 Unknown History topiramate 50 mg tablet 50 mg PO BID 10/28/21 Unknown History Physical Exam Vital Signs and Narrative: Vital Signs: Last Vital Signs Temp 99.0 F 06/05/22 11:33 Pulse 94 06/05/22 14:24 Resp 14 06/05/22 14:11 BP 132/78 06/05/22 14:24 Pulse Ox 99 06/05/22 14:11 O2 Del Method 06/05/22 14:11 BMI result Body Mass Index 24.7 Const: Other: Awake alert anxious but no acute distress Resp: Other: Essentially clear throughout; no rales rhonchi or wheezes Cardio: Other: No S4; positive S1-S2; no S3 murmurs rubs or gallops GI: Other: Soft nontender nondistended normoactive bowel sounds Neuro: Other: Cranial nerves 2-12 grossly intact as tested. Motor is 5/5 all extremities. Sensation intact. Cognition appropriate Extrem: Other: No edema bilaterally Results Labs CBC and Chem 7: 06/05/22 11:53 06/05/22 11:53 Labs: Laboratory Results - last 24 hr 06/05/22 06/05/22 06/05/22 11:31 11:53 11:53 MCV 89.8 MCH 30.6 MCHC 34.1 RDW 12.1 Plt Count 323 MPV 9.5 Immature Gran % (Auto) 0.4 Neut % (Auto) 54.0 Lymph % (Auto) 37.0 Foster % (Auto) 5.4 Eos % (Auto) 2.1 Baso % (Auto) 1.1 Lymph # (Auto) 3.2 Foster # (Auto) 0.5 Eos # (Auto) 0.2 Baso # (Auto) 0.1 Abs Immat Gran (auto) 0.03 Absolute Neuts (auto) 4.6 Absolute Nucleated RBC 0.000 Nucleated RBC % (auto) 0.0 PT 10.0 INR 0.9 Anion Gap Estim Creat Clear Calc Estimated GFR POC Glucose 95 Random Glucose Calcium Magnesium Total Bilirubin AST ALT Alkaline Phosphatase Troponin I High Sens Total Protein Albumin Beta HCG, Quant Urine Color Urine Appearance Urine pH Ur Specific Birney Urine Protein Urine Glucose (UA) Urine Ketones Urine Blood Urine Nitrite Ur Leukocyte Esterase Urine Test COVID-19 (RONALDO) COVID-19 Clin Com 06/05/22 06/05/22 06/05/22 11:53 11:53 11:53 MCV MCH MCHC RDW Plt Count MPV Immature Gran % (Auto) Neut % (Auto) Lymph % (Auto) Foster % (Auto) Eos % (Auto) Baso % (Auto) Lymph # (Auto) Foster # (Auto) Eos # (Auto) Baso # (Auto) Abs Immat Gran (auto) Absolute Neuts (auto) Absolute Nucleated RBC Nucleated RBC % (auto) PT INR Anion Gap 17 Estim Creat Clear Calc 66.8 Estimated GFR > 60 POC Glucose Random Glucose 98 Calcium 10.0 Magnesium 2.0 Total Bilirubin 0.5 AST 22 ALT 28 Alkaline Phosphatase 145 H Troponin I High Sens < 3.5 Total Protein 7.1 Albumin 4.7 Beta HCG, Quant 4 Urine Color Urine Appearance Urine pH Ur Specific Birney Urine Protein Urine Glucose (UA) Urine Ketones Urine Blood Urine Nitrite Ur Leukocyte Esterase Urine Test COVID-19 (RONALDO) COVID-19 [facility] Com 06/05/22 06/05/22 06/05/22 12:11 12:11 15:56 MCV MCH MCHC RDW Plt Count MPV Immature Gran % (Auto) Neut % (Auto) Lymph % (Auto) Foster % (Auto) Eos % (Auto) Baso % (Auto) Lymph # (Auto) Foster # (Auto) Eos # (Auto) Baso # (Auto) Abs Immat Gran (auto) Absolute Neuts (auto) Absolute Nucleated RBC Nucleated RBC % (auto) PT INR Anion Gap Estim Creat Clear Calc Estimated GFR POC Glucose Random Glucose Calcium Magnesium Total Bilirubin AST ALT Alkaline Phosphatase Troponin I High Sens < 3.5 Total Protein Albumin Beta HCG, Quant Urine Color Yellow Urine Appearance Clear Urine pH 5.5 Ur Specific Birney <= 1.005 Urine Protein Negative Urine Glucose (UA) Negative Urine Ketones Negative Urine Blood Negative Urine Nitrite Negative Ur Leukocyte Esterase Negative Urine Test NEGATIVE COVID-19 (RONALDO) COVID-19 [facility] Com 06/05/22 15:56 MCV MCH MCHC RDW Plt Count MPV Immature Gran % (Auto) Neut % (Auto) Lymph % (Auto) Foster % (Auto) Eos % (Auto) Baso % (Auto) Lymph # (Auto) Foster # (Auto) Eos # (Auto) Baso # (Auto) Abs Immat Gran (auto) Absolute Neuts (auto) Absolute Nucleated RBC Nucleated RBC % (auto) PT INR Anion Gap Estim Creat Clear Calc Estimated GFR POC Glucose Random Glucose Calcium Magnesium Total Bilirubin AST ALT Alkaline Phosphatase Troponin I High Sens Total Protein Albumin Beta HCG, Quant Urine Color Urine Appearance Urine pH Ur Specific Birney Urine Protein Urine Glucose (UA) Urine Ketones Urine Blood Urine Nitrite Ur Leukocyte Esterase Urine Test COVID-19 (RONALDO) Negative COVID-19 [facility] See Note Imaging Radiologist's Impressions: Impressions Chest X-Ray 06/05/22 12:53 IMPRESSION: No acute disease. Cervical Spine CT 06/05/22 14:22 IMPRESSION: - No acute intracranial findings. - No acute osseous findings within the cervical spine. Head CT 06/05/22 14:22 IMPRESSION: - No acute intracranial findings. - No acute osseous findings within the cervical spine. Chest CTA 06/05/22 14:24 IMPRESSION: 1. Suboptimal study, the contrast in the pulmonary arteries is less dense than the aorta. 2. There is a filling defect in a branch of left pulmonary artery to the left lower lobe this is probably nonocclusive embolus however difficult to visualized due to suboptimal opacification of the pulmonary artery. Unless there is a contraindication, would recommend anticoagulate, consider follow-up CT angiogram in 48 hours with 100 mL of contrast and time bolus imaging. 3. No CT evidence of pulmonary infarct. (Referring physician staff is being called, to be alerted of the above findings and recommendations.) TC Assessment and Plan (1) Pulmonary embolism: Status: Acute (2) Dizziness: Status: Acute (3) Type 2 diabetes mellitus with microalbuminuria, with long-term current use of insulin: Status: Acute (4) Mild intermittent asthma: Status: Acute Plan 51-year-old female presents with worsening shortness of breath and questionable syncopal episodes in backdrop of known vertiginous syndrome presents to ER after brief questionable syncopal episode. Workup including chest CTA demonstrates nonocclusive emboli of branch of left pulmonary artery to left lower lobe; other filling defects questionable to artifact. 1. Pulmonary embolism -appears nonocclusive however will give Lovenox 1 milligram/kilogram overnight. Recommendation is for repeat CTA 48 hours however if patient is stable this may be achieved in outpatient setting. -start Eliquis in a.m. 2. Dizziness -likely related to vertiginous symptoms; do not think related to questionable pulmonary embolism -continue p.r.n. meclizine 3.DMII -continue long-acting insulin -cover with lispro sliding scale -hold metformin tomorrow given contrast study today may restart 06/07/2022 -diabetic diet -adjust therapies as indicated Full code Lovenox Will admit as observation overnight to document stability Quality Stroke Does the patient have a stroke diagnosis?: No VTE Prior VTE?: No VTE Risk Level:: Medical - moderate - high VTE Device Contraindication: Treatment Not Indicated VTE Drug Contraindication: N/A - Med Ordered
--- NOTE | 2022-06-05 17:42 | PHA.MEDREC ---
MED REC COMPLETE, NO ISSUES Pharmacy Consult ? Medication Reconciliation Pharmacy has completed the medication reconciliation.
[2022-06-05 17:47] LABS: Hematocrit 41.6 % (37.0-47.0); Hemoglobin 14.2 g/dl (12.0-16.0); Mean Corpuscular HGB Conc 34.1 g/dl (31.0-35.0); Mean Corpuscular Volume 90.8 fL (80.0-98.0); Mean Platelet Volume 10.3 fL (9.4-12.3); Platelet Count 158 X10*3/uL (160-400); Red Blood Count 4.58 X10*6/uL (4.20-5.50); Red Cell Distribution Width 12.3 % (11.0-16.0); White Blood Count 10.7 X10*3/uL (4.8-10.8)
--- NOTE | 2022-06-05 18:30 | PC.NURSE ---
PT AWAITING ADMISSION TO [facility] [place]. SHE ARRIVES TO ED OVERFLOW IN NO ACUTE DISTRESS, SHE IS EATING DINNER NO SOB NOTED. IV ACCESS PATENT IN LEFT AC
[2022-06-05 18:53] LABS: INTERNATIONAL NORM RATIO 0.8 (0.9-1.1); Prothrombin Time 9.6 SEC (10.0-13.1)
[2022-06-05 18:55] LABS: Partial Thromboplastin Time 32.4 SEC (26.0-36.4)
[2022-06-05] MEDS: Acetaminophen 325 MG TABLET 650 MG PO (19:11)
[2022-06-05 19:12] LABS: Glucose, Whole Blood 149 mg/dL (60-115)
--- NOTE | 2022-06-05 20:02 | PC.NURSE ---
Patient admitted to [facility] [place], report to Kirt GONZALEZ. belongings: 1 purse, clothing, Iphone and slides. pt transferred by on telle.
[2022-06-05 20:22] LABS: Glucose, Whole Blood 132 mg/dL (60-115)
[2022-06-05] MEDS: Zolpidem Tartrate 5 MG TABLET PO (22:33)
[2022-06-05] MEDS: 0.9 % Sodium Chloride Flush 3 ML SYRINGE IVFLUSH (22:35)
[2022-06-06] VITALS (7 sets, daily range): BP systolic 109–125; BP diastolic 59–74; PULSE 65–97; RESP 17–20; TEMP 36.2–36.6; O2SAT 95–98
[2022-06-06] MEDS: Meclizine HCl 12.5 MG TABLET PO (00:15)
[2022-06-06] MEDS: Ketorolac Tromethamine 15 MG/ML VIAL IVPUSH (00:58)
--- NOTE | 2022-06-06 01:00 | MHC.PIE ---
P.Headache i.pt c/o posterior headache,tylenol not yet due. notified.Order for Toradol 15mg IV x 1 given E.Med given with good effect.cont to monitor.
[2022-06-06] MEDS: traMADoL HCL 50 MG TABLET 25 MG PO (05:11)
[2022-06-06] MEDS: Acetaminophen 325 MG TABLET 650 MG PO ×2 (05:12→12:22)
[2022-06-06] MEDS: Enoxaparin Sodium 80 MG/0.8 ML SYRINGE 70 MG SUBCUT ×2 (05:13→16:08)
[2022-06-06 06:52] LABS: MANUAL DIFF FLAG NO
[2022-06-06 07:00] LABS: Basophils Absolute Auto 0.1 X10*3/uL (0.0-0.2); Basophils Percent Auto 1.1 % (0-2); Eosinophils Absolute Auto 0.2 X10*3/uL (0.0-0.4); Eosinophils Percent Auto 2.4 % (0-4); Hematocrit 39.1 % (37.0-47.0); Hemoglobin 13.4 g/dl (12.0-16.0); Imm Gran Abs Auto 0.02 X10*3/uL (0.00-0.03); Imm Gran Pct Auto 0.3 % (0.0-0.4); Lymphocytes Absolute Auto 2.4 X10*3/uL (1.2-4.9); Lymphocytes Percent Auto 36.1 % (20-40); Mean Corpuscular HGB Conc 34.3 g/dl (31.0-35.0); Mean Corpuscular Hemoglobin 30.8 pg (27.0-33.0); Mean Corpuscular Volume 89.9 fL (80.0-98.0); Mean Platelet Volume 9.8 fL (9.4-12.3); Monocytes Absolute Auto 0.4 X10*3/uL (0.1-1.2); Monocytes Percent Auto 5.9 % (2-11); Neutrophils Absolute Auto 3.6 x10*3/uL (2.0-8.3); Neutrophils Percent Auto 54.2 % (45-73); Platelet Count 286 X10*3/uL (160-400); Red Blood Count 4.35 X10*6/uL (4.20-5.50); Red Cell Distribution Width 12.1 % (11.0-16.0); White Blood Count 6.6 X10*3/uL (4.8-10.8)
[2022-06-06 07:24] LABS: Alanine Aminotransferase 26 U/L (0-31); Alkaline Phosphatase 125 U/L (39-117); Anion Gap 15 (12-20); Aspartate Amino Transferase 18 U/L (5-31); Bilirubin Total 0.6 mg/dL (0.0-1.0); Blood Urea Nitrogen 11 mg/dL (9-16); Calcium 9.2 mg/dL (8.4-10.2); Carbon Dioxide 22 mmol/L (22-29); Chloride 109 mmol/L (96-108); Creatinine Clr Calc Pharmacy 80.9; Estimated Glomerular Filt Rate > 60; Glucose Fasting 99 mg/dL (60-99); Potassium 4.7 mmol/L (3.3-5.1); Sodium 141 mmol/L (135-145)
[2022-06-06 07:45] LABS: Glucose, Whole Blood 105 mg/dL (60-115)
[2022-06-06] MEDS: 0.9 % Sodium Chloride Flush 3 ML SYRINGE IVFLUSH ×3 (08:16→20:24)
[2022-06-06] MEDS: TiZANidine HCL 4 MG TABLET PO ×2 (09:24→18:14)
[2022-06-06] MEDS: Mirabegron 25 MG TAB.ER.24H PO (09:25)
[2022-06-06] MEDS: Meclizine HCl 25 MG TABLET PO ×2 (09:25→18:14)
[2022-06-06] MEDS: Gabapentin 400 MG CAPSULE PO ×3 (09:25→20:22)
[2022-06-06] MEDS: Famotidine 20 MG TABLET 40 MG PO (09:25)
[2022-06-06] MEDS: DULoxetine HCl 30 MG CAPSULE.DR PO ×2 (09:25→20:22)
[2022-06-06] MEDS: Loratadine 10 MG TABLET PO (09:25)
[2022-06-06] MEDS: Topiramate 25 MG TABLET 50 MG PO ×2 (09:25→20:22)
[2022-06-06] MEDS: clonazePAM 1 MG TABLET PO (09:26)
[2022-06-06] MEDS: Cholecalciferol (Vitamin D3) 25 MCG TABLET PO (09:26)
[2022-06-06] MEDS: Cholestyramine (With Sugar) 4 GM POWD.PACK PO ×2 (09:26→20:23)
[2022-06-06] MEDS: Nicotine 21 MG PATCH.TD24 TRANSDERMA (10:23)
[2022-06-06] MEDS: Fluticasone/Vilanterol 100/25 BLST.W.DEV 1 PUFF INHALE (11:51)
--- NOTE | 2022-06-06 12:08 | HO.PM.IMPN ---
Subjective Subjective Date of Service: 06/06/22 Interval History: This history was taken in Romanian from the patient. Vertigo chronic- dating back years. Improved since admission. No dyspnea. No leg swelling. Review of Systems Review of Systems: Yes all other systems are reviewed and are negative Physical Exam Vital Signs: Vital Signs: Last Vital Signs Temp 97.7 F 06/06/22 11:51 Pulse 94 06/06/22 11:53 Resp 18 06/06/22 11:53 BP 109/59 L 06/06/22 11:51 Pulse Ox 96 06/06/22 11:51 O2 Del Method 06/06/22 11:51 BMI result Body Mass Index 24.7 Gen: in no acute distress HEENT: sclera anicteric, moist mucus membranes Neck: supple Lungs: clear to auscultation bilaterally Heart: regular rate and rhythm, no murmurs Abd: soft, non-tender, non-distended Ext: no edema Skin: warm/well-perfused Neuro: alert and oriented x3, no focal findings Psych: appropriate affect Objective Data Active Medications Acetaminophen (Acetaminophen 325 Mg Tablet) 650 mg PO Q6H PRN PRN Reason: Pain, Mild (Pain Scale 1-3) Last Admin: 06/06/22 05:12 Dose: 650 mg Documented By: WILMAN Albuterol Sulfate (Albuterol Sulfate 90 Mcg 8 Gm Inhaler) 2 puff INHALE Q6H PRN PRN Reason: shortness of breath or wheezing Amitriptyline HCl (Amitriptyline Hcl 50 Mg Tablet) 50 mg PO BEDTIME [facility] Cholestyramine Resin (Cholestyramine (With Sugar) 4 Gm Powd.Pack) 4 gm PO BID [facility] Last Admin: 06/06/22 09:26 Dose: 4 gm Documented By: LUZ Clonazepam (Clonazepam 1 Mg Tablet) 1 mg PO BID PRN PRN Reason: Anxiety Last Admin: 06/06/22 09:26 Dose: 1 mg Documented By: LUZ Dextrose (Dextrose 50 % 25 Gm/50 Ml Syringe) 25 gm IVPUSH Q15M PRN; Protocol PRN Reason: per Hypoglycemia Standing Ord. Duloxetine HCl (Duloxetine Hcl 30 Mg Capsule.) 30 mg PO BID [facility] Last Admin: 06/06/22 09:25 Dose: 30 mg Documented By: LUZ Ezetimibe (Ezetimibe 10 Mg Tablet) 10 mg PO BEDTIME [facility] Enoxaparin Sodium (Enoxaparin Sodium 80 Mg/0.8 Ml Syringe) 70 mg SUBCUT Q12H [facility] Last Admin: 06/06/22 05:13 Dose: 70 mg Documented By: WILMAN Famotidine (Famotidine 20 Mg Tablet) 40 mg PO DAILY [facility] Last Admin: 06/06/22 09:25 Dose: 40 mg Documented By: LUZ Fluticasone Propionate (Fluticasone Propionate Nasal 16 Gm Erwin) 1 spray NOSTRIL-B DAILY PRN PRN Reason: Allergy Symptoms Fluticasone/Vilanterol (Fluticasone/Vilanterol 100/25 Blst.W.Dev) 1 puff INHALE RDAILY [facility] Last Admin: 06/06/22 11:51 Dose: 1 puff Documented By: NEFTALI Gabapentin (Gabapentin 400 Mg Capsule) 400 mg PO TID [facility] Last Admin: 06/06/22 09:25 Dose: 400 mg Documented By: LUZ Glucose (Glucose Gel 15 Gm Gel..Gram.) 15 gm PO Q15M PRN; Protocol PRN Reason: per Hypoglycemia Standing Ord. Insulin Human Lispro (Insulin Lispro 100 Unit/Ml 3 Ml Vial) 0 unit SUBCUT QIDACHS [facility]; Protocol Last Admin: 06/06/22 08:06 Dose: Not Given Documented By: LUZ Non-Admin Reason: No Insulin Coverage Loratadine (Loratadine 10 Mg Tablet) 10 mg PO DAILY [facility] Last Admin: 06/06/22 09:25 Dose: 10 mg Documented By: LUZ Meclizine HCl (Meclizine Hcl 25 Mg Tablet) 25 mg PO Q6H PRN PRN Reason: vertigo Last Admin: 06/06/22 09:25 Dose: 25 mg Documented By: LUZ Metformin HCl (Metformin Hcl 850 Mg Tablet) 850 mg PO BIDWM [facility] Last Admin: 06/06/22 08:08 Dose: Not Given Documented By: LUZ Non-Admin Reason: tuesday schedule Mirabegron (Mirabegron 25 Mg Tab.Er.24h) 25 mg PO DAILY [facility] Last Admin: 06/06/22 09:25 Dose: 25 mg Documented By: ULZ Nicotine (Nicotine 21 Mg Patch.Td24) 21 mg TRANSDERMA DAILY [facility] Last Admin: 06/06/22 10:23 Dose: 21 mg Documented By: LUZ Non-Formulary Medication (Dwztpm-Phgnsnhd-Hlmvyxp [Creon]) 1 cap PO QIDWMHS [facility] Non-Formulary Medication (Methylcellulose (Laxative) [Citrucel]) 500 mg PO DAILY [facility] Omeprazole (Omeprazole 20 Mg Capsule.Dr) 20 mg PO DAILY@0630 [facility] Ondansetron HCl (Ondansetron Hcl 4 Mg/2 Ml Vial) 4 mg IVPUSH Q8H PRN PRN Reason: Nausea and Vomiting Pharmacy Consult (Consult Rx Perform Med Rec) 1 each MISCELLANE ONCE PRN PRN Reason: Consult order Ropinirole HCl (Ropinirole Hcl 0.5 Mg Tablet) 0.5 mg PO BEDTIME [facility] Senna (Sennosides 8.6 Mg Tablet) 8.6 mg PO BEDTIME [facility] Sodium Chloride (0.9 % Sodium Chloride Flush 3 Ml Syringe) [facility] Last Admin: 06/06/22 08:16 Dose: 3 ml Documented By: LUZ Tizanidine HCl (Tizanidine Hcl 4 Mg Tablet) 4 mg PO TID PRN PRN Reason: for muscle spasm Last Admin: 06/06/22 09:24 Dose: 4 mg Documented By: LUZ Topiramate (Topiramate 25 Mg Tablet) 50 mg PO BID [facility] Last Admin: 06/06/22 09:25 Dose: 50 mg Documented By: LUZ Vitamin D (Cholecalciferol (Vitamin D3) 25 Mcg Tablet) 25 mcg PO DAILY [facility] Last Admin: 06/06/22 09:26 Dose: 25 mcg Documented By: LUZ Zolpidem Tartrate (Zolpidem Tartrate 5 Mg Tablet) 5 mg PO BEDTIME PRN PRN Reason: Insomnia Last Admin: 06/05/22 22:33 Dose: 5 mg Documented By: CECILIO Labs CBC & Chem 7: 06/06/22 06:18 06/06/22 06:18 Labs: Laboratory Results - last 24 hr 1106/05/22 06/05/22 11:53 11:53 11:53 MCV MCH MCHC RDW Plt Count MPV Immature Gran % (Auto) Neut % (Auto) Lymph % (Auto) [place] % (Auto) Eos % (Auto) Baso % (Auto) Lymph # (Auto) [place] # (Auto) Eos # (Auto) Baso # (Auto) Abs Immat Gran (auto) Absolute Neuts (auto) Absolute Nucleated RBC Nucleated RBC % (auto) PT 10.0 INR 0.9 APTT Anion Gap 17 Estim Creat Clear Calc 66.8 Estimated GFR > 60 POC Glucose Random Glucose 98 Fasting Glucose Calcium 10.0 Magnesium 2.0 Total Bilirubin 0.5 AST 22 ALT 28 Alkaline Phosphatase 145 H Troponin I High Sens < 3.5 Total Protein 7.1 Albumin 4.7 Beta HCG, Quant Urine Color Urine Appearance Urine pH Ur Specific [place] Urine Protein Urine Glucose (UA) Urine Ketones Urine Blood Urine Nitrite Ur Leukocyte Esterase Urine Test COVID-19 (RONALDO) COVID-[employer] 06/05/22 06/05/22 06/05/22 11:53 12:11 12:11 MCV MCH MCHC RDW Plt Count MPV Immature Gran % (Auto) Neut % (Auto) Lymph % (Auto) [place] % (Auto) Eos % (Auto) Baso % (Auto) Lymph # (Auto) [place] # (Auto) Eos # (Auto) Baso # (Auto) Abs Immat Gran (auto) Absolute Neuts (auto) Absolute Nucleated RBC Nucleated RBC % (auto) PT INR APTT Anion Gap Estim Creat Clear Calc Estimated GFR POC Glucose Random Glucose Fasting Glucose Calcium Magnesium Total Bilirubin AST ALT Alkaline Phosphatase Troponin I High Sens Total Protein Albumin Beta HCG, Quant 4 Urine Color Yellow Urine Appearance Clear Urine pH 5.5 Ur Specific [place] <= 1.005 Urine Protein Negative Urine Glucose (UA) Negative Urine Ketones Negative Urine Blood Negative Urine Nitrite Negative Ur Leukocyte Esterase Negative Urine Test NEGATIVE COVID-19 (RONALDO) myContactCardIDSecoo 06/05/22 06/05/22 06/05/22 15:56 15:56 17:40 MCV 90.8 MCH 31.0 MCHC 34.1 RDW 12.3 Plt Count 158 L D MPV 10.3 Immature Gran % (Auto) Neut % (Auto) Lymph % (Auto) [place] % (Auto) Eos % (Auto) Baso % (Auto) Lymph # (Auto) [place] # (Auto) Eos # (Auto) Baso # (Auto) Abs Immat Gran (auto) Absolute Neuts (auto) Absolute Nucleated RBC 0.000 Nucleated RBC % (auto) 0.0 PT INR APTT Anion Gap Estim Creat Clear Calc Estimated GFR POC Glucose Random Glucose Fasting Glucose Calcium Magnesium Total Bilirubin AST ALT Alkaline Phosphatase Troponin I High Sens < 3.5 Total Protein Albumin Beta HCG, Quant Urine Color Urine Appearance Urine pH Ur Specific [place] Urine Protein Urine Glucose (UA) Urine Ketones Urine Blood Urine Nitrite Ur Leukocyte Esterase Urine Test COVID-19 (RONALDO) Negative COVID-19 Clin Com See Note 06/05/22 06/05/22 06/05/22 18:23 19:06 20:15 MCV MCH MCHC RDW Plt Count MPV Immature Gran % (Auto) Neut % (Auto) Lymph % (Auto) [place] % (Auto) Eos % (Auto) Baso % (Auto) Lymph # (Auto) [place] # (Auto) Eos # (Auto) Baso # (Auto) Abs Immat Gran (auto) Absolute Neuts (auto) Absolute Nucleated RBC Nucleated RBC % (auto) PT 9.6 L INR 0.8 L APTT 32.4 Anion Gap Estim Creat Clear Calc Estimated GFR POC Glucose 149 H 132 H Random Glucose Fasting Glucose Calcium Magnesium Total Bilirubin AST ALT Alkaline Phosphatase Troponin I High Sens Total Protein Albumin Beta HCG, Quant Urine Color Urine Appearance Urine pH Ur Specific [place] Urine Protein Urine Glucose (UA) Urine Ketones Urine Blood Urine Nitrite Ur Leukocyte Esterase Urine Test COVID-19 (RONALDO) COVID-19 [place] 06/06/22 06/06/22 06/06/22 06:18 06:18 07:37 MCV 89.9 MCH 30.8 MCHC 34.3 RDW 12.1 Plt Count 286 D MPV 9.8 Immature Gran % (Auto) 0.3 Neut % (Auto) 54.2 Lymph % (Auto) 36.1 [place] % (Auto) 5.9 Eos % (Auto) 2.4 Baso % (Auto) 1.1 Lymph # (Auto) 2.4 [place] # (Auto) 0.4 Eos # (Auto) 0.2 Baso # (Auto) 0.1 Abs Immat Gran (auto) 0.02 Absolute Neuts (auto) 3.6 Absolute Nucleated RBC 0.000 Nucleated RBC % (auto) 0.0 PT INR APTT Anion Gap 15 Estim Creat Clear Calc 80.9 Estimated GFR > 60 POC Glucose 105 Random Glucose Fasting Glucose 99 Calcium 9.2 D Magnesium Total Bilirubin 0.6 AST 18 ALT 26 Alkaline Phosphatase 125 H Troponin I High Sens Total Protein 6.0 L Albumin 4.0 Beta HCG, Quant Urine Color Urine Appearance Urine pH Ur Specific [place] Urine Protein Urine Glucose (UA) Urine Ketones Urine Blood Urine Nitrite Ur Leukocyte Esterase Urine Test COVID-19 (RONALDO) COVID-19 Clin Com Assessment and Plan (1) Syncope: Status: Acute Plan d#2 51yo F with chronic vertigo admitted after brief syncopal episode, found to have nonocclusive L pulmary artery embolism # acute PE - enoxaparin 1 mg/kg q12h, repeat CTA tomorrow as question of artifact, consider DOAC apixaban if indeed has clot, will check bilateral leg duplex US # vertigo - prn meclizine, outpt PT # DM2 - basal/bolus insulin, hold MTF # tobacco abuse - NRT # VTE ppx: LMWH # dispo: anticipate home tomorrow In my clinical judgment, the patient requires continued inpatient hospitalization for the following reasons: repeat CTA Quality Stroke Does the patient have a stroke diagnosis?: No VTE Prior VTE?: No VTE Risk Level:: Medical - moderate - high VTE Device Contraindication: Treatment Not Indicated VTE Drug Contraindication: N/A - Med Ordered
[2022-06-06 12:14] LABS: Glucose, Whole Blood 154 mg/dL (60-115)
[2022-06-06] MEDS: Insulin Lispro 100 UNIT/ML 3 ML VIAL SUBCUT (12:19)
--- NOTE | 2022-06-06 12:51 | MHC.CM.PN ---
Lives at home, owns rollator and cane, still drives. Has [facility] nurse that comes in 1 per month to check on her per daughter. No other previous services. Family will be available to transport at D/C. to follow.
[2022-06-06 16:32] LABS: Prothrombin Time 10.9 SEC (10.0-13.1)
[2022-06-06 16:58] LABS: Glucose, Whole Blood 102 mg/dL (60-115)
[2022-06-06] MEDS: Butalb/Acetamin/Caff 50/325/40 TABLET 1 TAB PO (18:14)
[2022-06-06 20:22] LABS: Glucose, Whole Blood 127 mg/dL (60-115)
[2022-06-06] MEDS: rOPINIRole HCL 0.5 MG TABLET PO (20:22)
[2022-06-06] MEDS: Sennosides 8.6 MG TABLET PO (20:22)
[2022-06-06] MEDS: Ezetimibe 10 MG TABLET PO (20:22)
[2022-06-06] MEDS: Amitriptyline HCl 50 MG TABLET PO (20:22)
[2022-06-06] MEDS: Zolpidem Tartrate 5 MG TABLET PO (20:26)
[2022-06-07] VITALS: BP 107/51; PULSE 93; RESP 18; TEMP 36.6; O2SAT 95
[2022-06-07] MEDS: Enoxaparin Sodium 80 MG/0.8 ML SYRINGE 70 MG SUBCUT ×2 (05:54→17:21)
[2022-06-07 07:44] VITALS: BP 123/62; PULSE 94; RESP 18; TEMP 36.6; O2SAT 95
[2022-06-07] MEDS: Fluticasone/Vilanterol 100/25 BLST.W.DEV 1 PUFF INHALE (07:50)
[2022-06-07 07:51] VITALS: PULSE 91; RESP 18; O2SAT 98
[2022-06-07 07:55] LABS: Glucose, Whole Blood 106 mg/dL (60-115)
[2022-06-07] MEDS: Gabapentin 400 MG CAPSULE PO ×2 (08:20→14:43)
[2022-06-07] MEDS: Loratadine 10 MG TABLET PO (08:21)
[2022-06-07] MEDS: Topiramate 25 MG TABLET 50 MG PO (08:21)
[2022-06-07] MEDS: Mirabegron 25 MG TAB.ER.24H PO (08:21)
[2022-06-07] MEDS: Cholestyramine (With Sugar) 4 GM POWD.PACK PO (08:21)
[2022-06-07] MEDS: DULoxetine HCl 30 MG CAPSULE.DR PO (08:21)
[2022-06-07] MEDS: Cholecalciferol (Vitamin D3) 25 MCG TABLET PO (08:21)
[2022-06-07] MEDS: Famotidine 20 MG TABLET 40 MG PO (08:21)
[2022-06-07] MEDS: Nicotine 21 MG PATCH.TD24 TRANSDERMA ×2 (08:21→08:30)
[2022-06-07] MEDS: clonazePAM 1 MG TABLET PO (08:27)
[2022-06-07] MEDS: 0.9 % Sodium Chloride Flush 3 ML SYRINGE IVFLUSH (08:30)
[2022-06-07] MEDS: 0.9 % Sodium Chloride 1,000 ML 100 ML IVCONT (08:31)
[2022-06-07 10:11] VITALS: PULSE 103; O2SAT 97
[2022-06-07 11:11] VITALS: BP 147/78; PULSE 116; RESP 18; TEMP 36.7; O2SAT 98
[2022-06-07 11:37] LABS: Glucose, Whole Blood 169 mg/dL (60-115)
--- NOTE | 2022-06-07 12:56 | MHC.CM.PN ---
Per MD rounds Patient may discharge after CTA. The Eliquis coupon has been provided to the patient. DP home self care. Family will provide transportation home.
[2022-06-07] MEDS: iohexoL 350 MG/ML 100 ML INFUS..BTL IV (14:19)
--- NOTE | 2022-06-07 14:48 | P.DS_ITS ---
DS: Providers Provider Date of Service: 06/07/22 Date of admission: 06/05/22 16:45 Date of discharge: 06/07/22 Primary care physician: Unknown Physician DS: Diagnosis Discharge Diagnosis (1) Syncope: Status: Acute (2) Chronic vertigo: Status: Acute (3) Migraines: Status: Acute DS: Summary Hospital Course Hospital Course: from admission H+P by hospitalist Aayush Kramer DO, 06/05/22: 51-year-old female presents to the ER via EMS after she had a syncopal episode that lasted approximately 25 seconds; was able to sit up but then again lost consciousness for 10 seconds apparently witnessed by bystanders when queried patient reports that she has ongoing problems with dizziness and headache for which she saw Neurology; meclizine was prescribed with no affect.? She states her dizziness is worse when she stands and walks and will resolve when she sits briefly she reports worsening shortness of breath over the last week; she has a 1/2-1 pack a day smoker.? She denies leg pain or trauma.? When queried about clotting no family history of clotting however she did have a miscarriage.? She was given Lovenox she will be observed overnight and maintained on Lovenox. 51yo F with chronic vertigo admitted after brief syncopal episode. Initial CTA showed possibility of nonocclusive L pulmonary artery embolism for which she was started on anticoagulation with enoxaparin. However, a repeat CTA showed no evidence of PE and as such anticoagulation was discontinued. Venous duplex scanning of the legs was also negative. No arrhythmias on telemetry. Orthos tatic vital signs negative. She was given IV fluid hydration and syncope did not recur. She did have a migraine headache that was successfully aborted with Fiorcet. She should follow up with her neurologist for further management. As for vertigo, this is a chronic relapsing problem and she should continue to take meclizine as needed and do outpatient vestibular PT. Time Spent with Patient Time attestation: Total time spent providing and/or coordinating discharge services: 25 Discharge coordination time: Less than 30 minutes Quality: Safe Use of Opioids Does Pt have an Active Cancer Diagnosis on the Problem List?: No Quality: Stroke Does the patient have a stroke diagnosis?: No Physical Exam Vital Signs: Vital Signs: Last Vital Signs Temp 98.1 F 06/07/22 11:11 Pulse 116 H 06/07/22 11:11 Resp 18 06/07/22 11:11 BP 147/78 H 06/07/22 11:11 Pulse Ox 98 06/07/22 11:11 O2 Del Method 06/07/22 11:11 BMI result Body Mass Index 24.7 Gen: in no acute distress HEENT: sclera anicteric, moist mucus membranes Neck: supple Lungs: clear to auscultation bilaterally Heart: regular rate and rhythm, no murmurs Abd: soft, non-tender, non-distended Ext: no edema Skin: warm/well-perfused Neuro: alert and oriented x3, no focal findings Psych: appropriate affect DS: Data Data Completed and Pending Completed studies during hospitalization [Text1]: Laboratory Results WBC 6.6 X10*3/uL (4.8-10.8) 06/06/22 06:18 RBC 4.35 X10*6/uL (4.20-5.50) 06/06/22 06:18 Hgb 13.4 g/dl (12.0-16.0) 06/06/22 06:18 Hct 39.1 % (37.0-47.0) 06/06/22 06:18 MCV 89.9 fL (80.0-98.0) 06/06/22 06:18 MCH 30.8 pg (27.0-33.0) 06/06/22 06:18 MCHC 34.3 g/dl (31.0-35.0) 06/06/22 06:18 RDW 12.1 % (11.0-16.0) 06/06/22 06:18 Plt Count 286 X10*3/uL (160-400) D 06/06/22 06:18 MPV 9.8 fL (9.4-12.3) 06/06/22 06:18 Immature Gran % (Auto) 0.3 % (0.0-0.4) 06/06/22 06:18 Neut % (Auto) 54.2 % (45-73) 06/06/22 06:18 Lymph % (Auto) 36.1 % (20-40) 06/06/22 06:18 [place] % (Auto) 5.9 % (2-11) 06/06/22 06:18 Eos % (Auto) 2.4 % (0-4) 06/06/22 06:18 Baso % (Auto) 1.1 % (0-2) 06/06/22 06:18 Lymph # (Auto) 2.4 X10*3/uL (1.2-4.9) 06/06/22 06:18 [place] # (Auto) 0.4 X10*3/uL (0.1-1.2) 06/06/22 06:18 Eos # (Auto) 0.2 X10*3/uL (0.0-0.4) 06/06/22 06:18 Baso # (Auto) 0.1 X10*3/uL (0.0-0.2) 06/06/22 06:18 Abs Immat Gran (auto) 0.02 X10*3/uL (0.00-0.03) 06/06/22 06:18 Absolute Neuts (auto) 3.6 x10*3/uL (2.0-8.3) 06/06/22 06:18 Absolute Nucleated RBC 0.000 X10*3/uL (0.0-0.012) 06/06/22 06:18 Nucleated RBC % (auto) 0.0 /100WBC (0.0-0.2) 06/06/22 06:18 PT 10.9 SEC (10.0-13.1) 06/06/22 16:20 INR 1.0 (0.9-1.1) 06/06/22 16:20 APTT 32.4 SEC (26.0-36.4) 06/05/22 18:23 Sodium 141 mmol/L (135-145) 06/06/22 06:18 Potassium 4.7 mmol/L (3.3-5.1) 06/06/22 06:18 Chloride 109 mmol/L (96-108) H 06/06/22 06:18 Carbon Dioxide 22 mmol/L (22-29) 06/06/22 06:18 Anion Gap 15 (12-20) 06/06/22 06:18 BUN 11 mg/dL (9-16) 06/06/22 06:18 Creatinine 0.71 mg/dL (0.5-1.4) 06/06/22 06:18 Estim Creat Clear Calc 80.9 06/06/22 06:18 Estimated GFR > 60 06/06/22 06:18 POC Glucose 132 mg/dL (60-115) H 06/07/22 16:03 Random Glucose 98 mg/dL (60-115) 06/05/22 11:53 Fasting Glucose 99 mg/dL (60-99) 06/06/22 06:18 Calcium 9.2 mg/dL (8.4-10.2) D 06/06/22 06:18 Magnesium 2.0 mg/dL (1.6-2.6) 06/05/22 11:53 Total Bilirubin 0.6 mg/dL (0.0-1.0) 06/06/22 06:18 AST 18 U/L (5-31) 06/06/22 06:18 ALT 26 U/L (0-31) 06/06/22 06:18 Alkaline Phosphatase 125 U/L (39-117) H 06/06/22 06:18 Troponin I High Sens < 3.5 ng/L (<3.5-17.0) 06/05/22 15:56 Total Protein 6.0 g/dL (6.5-8.0) L 06/06/22 06:18 Albumin 4.0 g/dL (3.5-5.0) 06/06/22 06:18 Beta HCG, Quant 4 mIU/mL 06/05/22 11:53 Urine Color Yellow 06/05/22 12:11 Urine Appearance Clear 06/05/22 12:11 Urine pH 5.5 (5.0-9.0) 06/05/22 12:11 Ur Specific [place] <= 1.005 (1.005-1.025) 06/05/22 12:11 Urine Protein Negative mg/dL (Neg-Trace) 06/05/22 12:11 Urine Glucose (UA) Negative mg/dL (Negative) 06/05/22 12:11 Urine Ketones Negative mg/dL (Negative) 06/05/22 12:11 Urine Blood Negative (Negative) 06/05/22 12:11 Urine Nitrite Negative (Negative) 06/05/22 12:11 Ur Leukocyte Esterase Negative (Negative) 06/05/22 12:11 Urine Test NEGATIVE (NEGATIVE) 06/05/22 12:11 COVID-19 (RONALDO) Negative (Negative) 06/05/22 15:56 COVID-19 Clin Com See Note 06/05/22 15:56 Impressions Chest X-Ray 06/05/22 12:53 IMPRESSION: No acute disease. Cervical Spine CT 06/05/22 14:22 IMPRESSION: - No acute intracranial findings. - No acute osseous findings within the cervical spine. Head CT 06/05/22 14:22 IMPRESSION: - No acute intracranial findings. - No acute osseous findings within the cervical spine. Venous Duplex 06/06/22 09:10 IMPRESSION: No evidence of deep vein thrombosis in either lower extremity. Chest CTA 06/07/22 14:20 IMPRESSION: No large or central pulmonary embolism. Evaluation of smaller subsegmental pulmonary arteries is limited due to respiratory artifact. VTE: Negative Discharge Plan Discharge Patient Disposition: Home, Self-Care Discharge Diagnosis: syncope, vertigo, migraines Referrals: Mali Nova MD [Physician] - 1 Week Jay Devine MD [Physician] - 2 Weeks Discharge Medications: New zteqnkdkrf-nwedqdvhnqyri-droa [Fioricet] 50-300-40 mg capsule 1 cap PO Q8H PRN (Reason: migraine headae) Qty: 14 0RF Continued duloxetine 30 mg capsule,delayed release(DR/EC) 30 mg PO BID Qty: 180 3RF fluticasone propion-salmeterol [Advair Diskus] 250-50 mcg/dose blister with device 1 inh inhalation BID Qty: 180 3RF cetirizine 10 mg tablet 10 mg PO DAILY Qty: 90 3RF ropinirole 0.5 mg tablet 0.5 mg PO BEDTIME Qty: 90 2RF (DME) lancets 28 gauge misc See Rx Instructions topical QID Qty: 300 3RF Rx Instructions: 3 times a day (DME) blood sugar diagnostic Strip See Rx Instructions Not Applicable QID Qty: 300 3RF Rx Instructions: 3 times a day cholecalciferol (vitamin D3) 25 mcg (1,000 unit) tablet 25 mcg PO DAILY Qty: 30 5RF (DME) pen needle, diabetic [BD Vanessa 2nd Gen Pen Needle] 32 gauge x 5/32 needle See Rx Instructions .Route Qty: 100 3RF Rx Instructions: Use to inject insulin once a day gabapentin 400 mg capsule 400 mg PO TID 30 Days Qty: 90 0RF tizanidine 4 mg tablet 4 mg PO TID PRN (Reason: for muscle spasm) Qty: 30 0RF ondansetron 4 mg Tablet,Disintegrating 4 mg PO DAILY PRN (Reason: Nausea) amitriptyline 50 mg Tablet 50 mg PO BEDTIME omeprazole 20 mg capsule,delayed release(DR/EC) 20 mg PO DAILY@0630 Creon 12,000-38,000 -60,000 unit capsule,delayed release(DR/EC) 1 cap PO QIDWMHS Rx Instructions: administer with meals and/or snacks ezetimibe 10 mg tablet 10 mg PO BEDTIME Trulicity 3 mg/0.5 mL pen injector 3 mg subcut FR@1000 famotidine 40 mg Tablet 40 mg PO DAILY fluticasone propionate 50 mcg/actuation spray,suspension 1 spray intranasal DAILY PRN (Reason: Allergy Symptoms) clonazepam 1 mg tablet 1 mg PO BID PRN (Reason: Anxiety) Myrbetriq 25 mg tablet extended release 24 hr 25 mg PO DAILY Qty: 30 0RF (DME) cane with quad tips See Rx Instructions .Route .MEDSUPPLY Qty: 1 0RF Rx Instructions: use as directed (DME) incontinence pad See Rx Instructions .Route .MEDSUPPLY Qty: 120 8RF Rx Instructions: As directed 4 times a day as needed albuterol sulfate [ProAir HFA] 90 mcg/actuation HFA aerosol inhaler 2 puff inhalation Q6H PRN (Reason: shortness of breath or wheezing) Qty: 18 5RF topiramate 50 mg tablet 50 mg PO BID metformin 750 mg tablet extended release 24 hr 750 mg PO BID 90 Days Qty: 180 1RF meclizine 12.5 mg tablet 12.5 mg PO DAILY PRN (Reason: dizziness) Qty: 20 1RF Tresiba FlexTouch U-100 100 unit/mL (3 mL) insulin pen 18 unit subcut BEDTIME 90 Days Qty: 30 1RF zolpidem 10 mg tablet 10 mg PO BEDTIME PRN (Reason: Insomnia) Cholestyramine Light 4 gram powder 4 g PO BID Qty: 231 3RF Rx Instructions: administer w/meal; avoid other meds within 1hr before or 4-6hr after dose sennosides [Natural Senna Laxative] 8.6 mg tablet 8.6 mg PO BEDTIME Qty: 90 3RF Citrucel 500 mg tablet 500 mg PO DAILY Qty: 90 3RF Rx Instructions: take it with full glass of water Discharge Orders: Discharge Order (Routine); Ordered 06/07/22 Ordered By: Kristofer Moulton Diet: Diabetic diet Activity on Discharge: As tolerated Stand Alone Forms: Patient Portal Discharge page Care Plan Goals: control of vertigo and migraines Health Concerns: syncope, vertigo, migraines Plan of Treatment: see your neurologist in 2-3 weeks identify and avoid migraine triggers Fiorcet for acute migraine treatment Please follow up with your primary care doctor within 1 week. Return to the hospital if you experience recurrent or worsening symptoms. Assessment: See Discharge Summary.
[2022-06-07 15:59] VITALS: BP 146/89; PULSE 100; RESP 18; TEMP 36.6; O2SAT 96
[2022-06-07 16:25] LABS: Glucose, Whole Blood 132 mg/dL (60-115)
== END 2022-06-07 18:15 | disposition home or self-care (01) ==
LOC: HO.ED 16:22 → HO.EDOVER 16:47 → HO.IMC 19:23
PROVIDERS: Physician Assistant Medical; Admitting Provider Hospitalist; Emergency Provider Emergency Medicine; Visit Provider Family Medicine
DX: R55 Syncope and collapse (principal); R42 Dizziness and giddiness; G43.909 Migraine, unspecified, not intractable, without status migrainosus; R11.0 Nausea; H53.8 Other visual disturbances; R06.02 Shortness of breath; F17.210 Nicotine dependence, cigarettes, uncomplicated; Z20.822 Contact with and (suspected) exposure to COVID-19; E11.29 Type 2 diabetes mellitus with other diabetic kidney complication; E78.5 Hyperlipidemia, unspecified; K21.9 Gastro-esophageal reflux disease without esophagitis; J45.909 Unspecified asthma, uncomplicated; G25.81 Restless legs syndrome; E53.8 Deficiency of other specified B group vitamins; E04.2 Nontoxic multinodular goiter; F41.8 Other specified anxiety disorders; Z79.899 Other long term (current) drug therapy; Z79.4 Long term (current) use of insulin
CPT/HCPCS: 36415; 70450; 71046; 71275; 72125; 80053; 81003; 81025; 82947; 83735; 84484; 84702; 85025; 85027; 85610; 85730; 87635; 93005; 93970; 96360; 96361; 96372; 96374; 96375; 97161; 99219; 99285; J1650; J1885; J2405; Q9967

== ENCOUNTER → 2022-06-16 07:51 | Outpatient (BNVA) | payer OTHER, SELFPAY | PROVIDERS: PCP Internal Medicine; Referring Provider Internal Medicine; Visit Provider Nurse Practitioner Family | DX: Z12.11 Encounter for screening for malignant neoplasm of colon (principal); K21.9 Gastro-esophageal reflux disease without esophagitis; K86.89 Other specified diseases of pancreas; K59.04 Chronic idiopathic constipation; K58.2 Mixed irritable bowel syndrome | CPT/HCPCS: 99212 ==

== ENCOUNTER 2022-06-29 07:30 | Outpatient (RCR) | payer OTHER, SELFPAY ==
[2022-06-29 08:01] VITALS: BP 123/73; PULSE 92
--- NOTE | 2022-06-29 10:57 | MHC.PT.EP ---
[facility] [place] Office [place] Office [place] Office [address] Alok Mayberry [address] [phone] F: [phone] F: [phone] F: [phone] F: [phone] Physical Therapy Plan of Care Date of Evaluation: Date of Surgery: Diagnosis: dizziness and giddiness Assessment: 51 y/o female referred to PT with dizziness and giddiness. Reports onset of dizziness one month ago. Describes dizziness as a humming noise, nausea, and my vision feels like a tornado. This dizziness sensation lasts minutes to hours. Of note, she went to the hospital and admitted for 3 days for migraine with dizziness, uncontrolled DM, and high BP. Dizziness occurs with bending over, lying flat (she sleeps with 10 pillows) and moving too quick, walking, and in narrow/close places with lots of noise. She lays down and drinks water when she has dizziness d/t panic attacks. Examination shows normal oculomotor examination, static balance WFL, negative VKI test, and negative during Marti-Hallpike and Roll Tests. In Roll Test, she had increased R ear pain and in Marti Hallpike she had onset of [place], but no dizziness or nystagmus. At this time, she does not present with BPPV and recommend pt f/u with her MD regarding her sx. Pt in agreement. Frequency and Duration: The patient will be seen none Short Term Goals: Senior Living Goals: D/C and Recommend f/u with MD and neurologist for Treatment Plan: Modalities to reduce pain, spasms and effusion. Manual therapy to restore motion and function. Therapeutic exercise to improve strength and flexibility. Neuromuscular re-education for posture and balance. Therapeutic activities to return to functional activities of daily living. Electronically signed by: Sayra Tran PT Please sign and return to therapist. Thank you for your referral.
--- NOTE | 2022-06-29 12:57 | MHC.PT.DC ---
[facility] [place] [facility] [place] [facility] [place] [facility] [address] Alok Mayberry [address] [phone] F: [phone] F: [phone] F: [phone] F: [phone] Physical Therapy Discharge Report Diagnosis: dizziness and giddiness Date of Surgery: Date of Evaluation: 06/29/22 Date of Discharge: 06/29/22 Treatments to Date: 1 Cancellations to Date: 0 No Shows to Date: Discharge Status: Recommend MD Follow-up Discharge Summary: 51 y/o female referred to PT with dizziness and giddiness. Reports onset of dizziness one month ago. Describes dizziness as a humming noise, nausea, and my vision feels like a tornado. This dizziness sensation lasts minutes to hours. Of note, she went to the hospital and admitted for 3 days for migraine with dizziness, uncontrolled DM, and high BP. Dizziness occurs with bending over, lying flat (she sleeps with 10 pillows) and moving too quick, walking, and in narrow/close places with lots of noise. She lays down and drinks water when she has dizziness d/t panic attacks. Examination shows normal oculomotor examination, static balance WFL, negative VKI test, and negative during [place] and Roll Tests. In Roll Test, she had increased R ear pain and in [place] she had onset of [place] LEON, but no dizziness or nystagmus. At this time, she does not present with BPPV and recommend pt f/u with her MD regarding her sx. Pt in agreement. Electronically signed by: Sayra Tran PT Please sign and return to therapist. Thank you for your referral.
== END 2022-06-29 12:58 | disposition home or self-care (01) ==
LOC: HO.PT 07:30
PROVIDERS: PCP Internal Medicine; Visit Provider Internal Medicine
DX: R42 Dizziness and giddiness (principal)
CPT/HCPCS: 97162

== ENCOUNTER → 2022-09-15 07:07 | Outpatient (BNVA) | payer OTHER, SELFPAY | PROVIDERS: PCP Internal Medicine; Referring Provider Internal Medicine; Visit Provider Nurse Practitioner Family | DX: Z01.818 Encounter for other preprocedural examination (principal); K21.9 Gastro-esophageal reflux disease without esophagitis; K86.89 Other specified diseases of pancreas; Z79.899 Other long term (current) drug therapy | CPT/HCPCS: 99212 ==

== ENCOUNTER 2022-10-27 10:27 | Outpatient (REF) | payer OTHER, SELFPAY ==
[2022-10-27 15:09] LABS: Amylase 30 U/L (28-100); Anion Gap 14 (12-20); Carbon Dioxide 26 mmol/L (22-29); Chloride 108 mmol/L (96-108); Potassium 4.3 mmol/L (3.3-5.1); Sodium 144 mmol/L (135-145)
[2022-10-27 15:29] LABS: Lipase 17 U/L (8-78)
[2022-10-28 11:35] LABS: Adenovirus F 40/41 Not Detected (Not Detect.); Astrovirus Not Detected (Not Detect.); Campylobacter Not Detected (Not Detect.); Cryptosporidium Not Detected (Not Detect.); Cyclospora cayetanensis Not Detected (Not Detect.); E. coli EAEC Not Detected (Not Detect.); E. coli EPEC Not Detected (Not Detect.); E. coli ETEC Not Detected (Not Detect.); E. coli STEC Not Detected (Not Detect.); Entamoeba histolytica Not Detected (Not Detect.); Giardia lamblia Not Detected (Not Detect.); Norovirus GI/GII Not Detected (Not Detect.); Plesiomonas shigelloides Not Detected (Not Detect.); Rotavirus A Not Detected (Not Detect.); Salmonella Not Detected (Not Detect.); Sapovirus Not Detected (Not Detect.); Shigella sp./EIEC Not Detected (Not Detect.); Vibrio Not Detected (Not Detect.); Vibrio Cholerae Not Detected (Not Detect.); Yersinia enterocolitica Not Detected (Not Detect.)
== END 2022-10-27 10:28 | disposition home or self-care (01) ==
LOC: HO.HMGCLDS 10:27
PROVIDERS: Nurse Practitioner Family; PCP Internal Medicine; Visit Provider Internal Medicine
DX: R19.7 Diarrhea, unspecified (principal)
CPT/HCPCS: 36415; 80051; 82150; 83690; 87507

== ENCOUNTER 2022-11-06 07:02 | Outpatient (REF) | payer OTHER, SELFPAY ==
[2022-11-06 07:17] LABS: MANUAL DIFF FLAG NO
[2022-11-06 07:30] LABS: Basophils Absolute Auto 0.1 X10*3/uL (0.0-0.2); Basophils Percent Auto 0.9 % (0-2); Eosinophils Absolute Auto 0.1 X10*3/uL (0.0-0.4); Eosinophils Percent Auto 1.5 % (0-4); Hematocrit 41.3 % (37.0-47.0); Hemoglobin 13.9 g/dl (12.0-16.0); Imm Gran Abs Auto 0.02 X10*3/uL (0.00-0.03); Imm Gran Pct Auto 0.3 % (0.0-0.4); Lymphocytes Absolute Auto 2.9 X10*3/uL (1.2-4.9); Lymphocytes Percent Auto 36.2 % (20-40); Mean Corpuscular HGB Conc 33.7 g/dl (31.0-35.0); Mean Corpuscular Hemoglobin 30.3 pg (27.0-33.0); Mean Platelet Volume 9.4 fL (9.4-12.3); Monocytes Absolute Auto 0.4 X10*3/uL (0.1-1.2); Monocytes Percent Auto 5.1 % (2-11); Neutrophils Absolute Auto 4.4 x10*3/uL (2.0-8.3); Platelet Count 283 X10*3/uL (160-400); Red Blood Count 4.59 X10*6/uL (4.20-5.50); Red Cell Distribution Width 13.1 % (11.0-16.0); White Blood Count 7.9 X10*3/uL (4.8-10.8)
[2022-11-06 07:41] LABS: Estimated Average Glucose 114 mg/dL; Hemoglobin A1c % 5.6 %
[2022-11-06 08:07] LABS: Alanine Aminotransferase 18 U/L (0-31); Anion Gap 11 (12-20); Aspartate Amino Transferase 19 U/L (5-31); Blood Urea Nitrogen 8 mg/dL (9-16); Calcium 9.4 mg/dL (8.4-10.2); Carbon Dioxide 27 mmol/L (22-29); Chloride 109 mmol/L (96-108); Cholesterol 171 mg/dL; Estimated Glomerular Filt Rate > 60; Glucose Fasting 101 mg/dL (60-99); HDL Cholesterol 41 mg/dL; LDL Cholesterol Calculated 86 mg/dl; Potassium 4.2 mmol/L (3.3-5.1); Sodium 143 mmol/L (135-145); Triglycerides 222 mg/dL
[2022-11-06 08:35] LABS: Folate 8.1 ng/mL (> or = 4.0); TSH reflex Free T4 1.18 uIU/mL (0.32-4.0); Vitamin B12 436 pg/mL (200-900); Vitamin D 25-OH Total 41.8 ng/mL (>30)
[2022-11-06 09:05] LABS: Creatinine Urine 92.53 mg/dL; Microalbum/Creatinine Ratio Ur 5.4 ug/mg cr
== END 2022-11-06 07:03 | disposition home or self-care (01) ==
LOC: HO.LAB 07:02
PROVIDERS: PCP Internal Medicine; Visit Provider Internal Medicine
DX: E11.29 Type 2 diabetes mellitus with other diabetic kidney complication (principal); E53.8 Deficiency of other specified B group vitamins; E66.9 Obesity, unspecified; E78.5 Hyperlipidemia, unspecified; K21.9 Gastro-esophageal reflux disease without esophagitis; M79.7 Fibromyalgia; R80.9 Proteinuria, unspecified; Z79.4 Long term (current) use of insulin; E04.2 Nontoxic multinodular goiter
CPT/HCPCS: 36415; 80048; 80061; 82043; 82306; 82607; 82746; 83036; 84443; 84450; 84460; 85025

== ENCOUNTER 2022-11-09 08:36 | Outpatient (REF) | payer OTHER, SELFPAY ==
[2022-11-10 09:38] LABS: BV Int Neg Control Negative (Negative); BV Int Pos Control Positive (Positive)
== END 2022-11-09 08:37 | disposition home or self-care (01) ==
LOC: HO.LAB 08:36
PROVIDERS: PCP Internal Medicine; Visit Provider Advanced Practice Midwife
DX: N89.8 Other specified noninflammatory disorders of vagina (principal)
CPT/HCPCS: 87480; 87510; 87660

== ENCOUNTER → 2022-11-10 07:58 | Outpatient (BNVA) | payer OTHER, SELFPAY | PROVIDERS: PCP Internal Medicine; Visit Provider Nurse Practitioner Family | DX: Z12.11 Encounter for screening for malignant neoplasm of colon (principal); K86.89 Other specified diseases of pancreas; K21.9 Gastro-esophageal reflux disease without esophagitis | CPT/HCPCS: 99212 ==

== ENCOUNTER 2022-11-20 15:57 | Emergency (ER) | payer OTHER, SELFPAY ==
--- NOTE | ~2022-11-20 | CT_ITS ---
EXAMINATION: CT ORBIT WITH CONTRAST CLINICAL INFORMATION: Periorbital cellulitis. Swollen right orbit. COMPARISON: CT head from 06/05/2022. TECHNIQUE: Multidetector helical imaging of the orbits was obtained following the administration of 85 mL Omnipaque 350 intravenous contrast. Multiple axial reformats and coronal/sagittal/sagittal reconstructions were created the technologist workstation for review. This CT examination was performed using dose optimization techniques as appropriate, variously including the following: *Automated exposure control. *Adjustment of mA and/or kV according to patient size (this includes techniques or standardized protocols for targeted exams where dose is matched to indication/reason for exam; i.e. extremities or head). *Use of iterative reconstruction technique. DLP: 190 mGy-cm FINDINGS: Normal appearance of the osseous orbits. Mild to moderate right-sided preseptal edema. No discrete fluid collection. No left-sided preseptal edema. No retrobulbar edema bilaterally. There is moderate smooth enhancement along the right-sided anterior conjunctiva. Otherwise, normal appearance of the globes. Normal symmetric appearance of the extraocular musculature. No abnormalities of the intraconal or extraconal adipose tissue. Normal appearance of the optic nerve sheaths. Normal appearance of the lacrimal glands. No orbital fluid collections. No abnormalities of the orbital apices. The premaxillary, retromaxillary, pterygopalatine fossa, temporal fossa, and parapharyngeal adipose tissue is maintained. No demonstrated abnormalities of the cavernous sinuses. No demonstrated vascular abnormalities. Normal appearance of the zygomatic arches. No nasal bone fracture. Minimal rightward nasal septal deviation. Mild mucosal thickening of the paranasal sinuses. The mandibular condyles remain well-seated in their respective temporal articular grooves. The mastoid air cells and middle ear cavities remain well aerated. No layering fluid collections. No demonstrated abnormalities of the visualized intracranial structures. CT/CT orbit BI w IV con IMPRESSION: Mild to moderate right-sided preseptal edema with moderate smooth enhancement along the right-sided anterior conjunctiva. Findings are suggestive of nonspecific conjunctivitis. No discrete fluid collection. No retrobulbar edema.
--- NOTE | 2022-11-20 16:03 | ED.GENADULT ---
HPI - General Adult General Chief complaint: Eye Problems <MUSA Arteaga - Last Filed: 11/20/22 16:13> Stated complaint: swollen right eye <MUSA Arteaga - Last Filed: 11/20/22 16:13> Time Seen by Provider: 11/20/22 18:16 <MUSA Arteaga - Last Filed: 11/20/22 16:13> Related Data Home medications: Home Medications Medication Instructions Recorded Confirmed clonazepam 1 mg tablet 1 mg PO BID PRN Anxiety 04/28/20 06/05/22 zolpidem 10 mg tablet 10 mg PO BEDTIME PRN Insomnia 07/20/21 06/05/22 amitriptyline 50 mg tablet 50 mg PO BEDTIME 06/05/22 06/05/22 fluticasone propionate 50 1 spray intranasal DAILY PRN 06/05/22 06/05/22 mcg/actuation nasal Allergy Symptoms spray,suspension docusate sodium 100 mg capsule 100 mg PO BID 09/15/22 nortriptyline 25 mg capsule 25 mg PO BEDTIME 09/15/22 sennosides 8.6 mg tablet (senna) 8.6 mg PO BEDTIME constipation 09/15/22 topiramate 100 mg tablet 100 mg PO BID 09/15/22 Previous Rx's Medication Instructions Recorded mirabegron 25 mg tablet,extended 25 mg PO DAILY #30 tabs 10/06/20 release 24 hr (Myrbetriq) incontinence pad #120 ea 01/28/21 cane with quad tips #1 ea 01/28/21 blood sugar diagnostic #300 ea 11/25/21 lancets 28 gauge #300 ea 11/25/21 cholecalciferol (vitamin D3) 25 25 mcg PO DAILY #30 caps 12/21/21 mcg (1,000 unit) tablet methylcellulose (laxative) 500 mg 500 mg PO DAILY #90 tabs 05/05/22 tablet (Citrucel) pen needle, diabetic 32 gauge x #100 ea 05/17/22 (BD Vanessa 2nd Gen Pen Needle) prtqkuncsm-sbqhrznkeeojg-urwqczhl 1 cap PO Q8H PRN migraine headae 06/07/22 50 mg-300 mg-40 mg capsule #14 caps (Fioricet) fluconazole 150 mg tablet 150 mg PO Q3D PRN vaginal itching 06/21/22 2 doses #2 tabs insulin degludec 100 unit/mL (3 18 unit (0.18 mL) subcut BEDTIME 06/21/22 mL) subcutaneous pen (Tresiba 90 days #30 mL FlexTouch U-100 insulin) ondansetron 4 mg disintegrating 4 mg PO DAILY PRN Nausea #14 tabs 06/21/22 tablet albuterol sulfate 90 mcg/actuation 2 puff inhalation Q6H PRN 06/25/22 aerosol inhaler (ProAir HFA) shortness of breath or wheezing #18 grams meclizine 12.5 mg tablet 12.5 mg PO DAILY PRN dizziness #20 06/25/22 tabs albuterol sulfate 2.5 mg/3 mL 2.5 mg (3 mL) inhalation QID PRN 06/30/22 (0.083 %) solution for nebulization shortness of breath or wheezing #75 mL ropinirole 0.5 mg tablet 0.5 mg PO BEDTIME #90 caps 07/07/22 lidocaine 5 % topical patch 1 patch topical DAILY #15 ea 08/23/22 (Lidoderm) cetirizine 10 mg tablet 10 mg PO DAILY #90 tabs 09/03/22 duloxetine 30 mg capsule,delayed 30 mg PO BID #180 caps 09/03/22 release fluticasone 250 mcg-salmeterol 50 1 inh inhalation BID #180 ea 09/03/22 mcg/dose blistr powdr for inhalation (Advair Diskus) metformin 750 mg tablet,extended 750 mg PO BID 90 days #180 tabs 09/03/22 release 24 hr bisacodyl 5 mg tablet,delayed 10 mg PO BEDTIME #180 tabs 09/15/22 release (Dulcolax (bisacodyl)) polyethylene glycol 3350 17 238 g PO ONCE #238 grams 09/15/22 gram/dose oral powder (Miralax) cholestyramine-aspartame 4 gram 4 g PO BID #231 grams 09/21/22 oral powder (Cholestyramine Light) ezetimibe 10 mg tablet 10 mg PO BEDTIME #90 tabs 10/06/22 dulaglutide 3 mg/0.5 mL 3 mg (0.5 mL) subcut FR@1000 #6 mL 11/05/22 subcutaneous pen injector (Trulicity) gabapentin 400 mg capsule 400 mg PO TID 30 days #90 caps 11/05/22 tizanidine 4 mg tablet 4 mg PO TID PRN for muscle spasm 11/05/22 #30 tabs famotidine 40 mg tablet 40 mg PO DAILY #30 tabs 11/10/22 ywepub-ohdjhtio-ncfzlkp 1 cap PO QIDWMHS #240 caps 11/10/22 12,000-38,000-60,000 unit capsule,delayed rel (Creon) ibuprofen 800 mg tablet 800 mg PO Q12H PRN low back pain 11/15/22 #30 tabs lidocaine 5 % topical patch 1 patch topical DAILY PRN painful 11/15/22 muscle spasm #30 ea methyl salicylate 10 %-menthol 3 % 1 patch topical Q8-12H PRN muscle 11/15/22 topical patch (Salonpas (methyl pain #20 ea salicylate-menthol)) cefuroxime axetil 500 mg tablet 500 mg PO BID 7 days #14 tabs 11/20/22 diphenhydramine HCl 25 mg capsule 25 mg PO BEDTIME PRN allergy 11/20/22 (Benadryl) symptoms #20 caps olopatadine 0.1 % eye drops (Eye 1 drp ophthalmic (eye) BID 7 days 11/20/22 Allergy Itch-Redness Relief) #5 mL omeprazole 20 mg capsule,delayed 20 mg PO DAILY@0630 gerd #30 caps 11/20/22 release <MUSA Arteaga - Last Filed: 11/20/22 16:13> Allergies/adverse reactions: Allergies Allergy/AdvReac Type Severity Reaction Status Date / Time aspirin Allergy Intermediate rash Verified 11/15/22 08:57 latex [LATEX] Allergy Mild HIVES/RASH Verified 11/15/22 08:57 Penicillins Allergy Mild unknown Verified 11/15/22 08:57 amoxicillin AdvReac Intermediate diarrhea Verified 11/15/22 08:57 Beef Containing Products AdvReac Intermediate DIARRHEA/VO Verified 11/15/22 08:57 MITING [employer] Allergy Intermediate inflammation Uncoded 11/15/22 08:57 and swelling <MUSA Arteaga - Last Filed: 11/20/22 16:13> Review of Systems Review of Systems: Constitutional : No Weight loss, No Fever, No Chills, No Night Sweats, No Fatigue, No Malaise ENT/Mouth : No Hearing loss, No Ear Pain, No Nasal Congestion, No Sinus Pain, No Hoarseness, No sore throat, No Rhinorrhea, No Swallowing Difficulty Eyes: Eye Pain, Swelling, Redness, No Foreign Body, No Discharge, No Vision Changes Cardiovascular : No Chest Pain, No SOB, No Dyspnea on Exertion, No Orthopnea, No Edema, No Palpitations Respiratory : No Cough, No Sputum, No Wheezing, No Smoke Exposure, No Dyspnea Gastrointestinal : No Nausea, No Vomiting, No Diarrhea, No Constipation, No abdominal Pain, No Hematochezia, No Melena Genitourinary : no irregular bleeding, No Dysuria, No Urinary Frequency, No Hematuria, No Urinary Incontinence, No Urgency, No Flank Pain, No Urinary Flow Changes, No Hesitancy Musculoskeletal : No joint pain, No Myalgias, No Joint Swelling Skin : No Skin Lesions, No rash <KYLEIGH Mullen - Last Filed: 11/21/22 01:21> Yes all other systems are reviewed and are negative <KYLEIGH Mullen - Last Filed: 11/21/22 01:21> [facility] Past Medical History Medical History: Medical History (Updated 11/21/22 @ 00:25 by Renu Theodore) Anxiety Arthritis B12 deficiency Controlled diabetes mellitus type II without complication COVID-19 vaccination declined Decreased hearing of right ear Depression with anxiety Dyslipidemia Fibromyalgia GERD (gastroesophageal reflux disease) Mild intermittent asthma Mixed stress and urge incontinence Non-toxic multinodular goiter Obesity (BMI 30-39.9) Pancreatic insufficiency Pelvic pain Restless leg syndrome Tinnitus of right ear Type 2 diabetes mellitus with microalbuminuria, with long-term current use of insulin Vertigo <MUSA Arteaga - Last Filed: 11/20/22 16:13> Surgical History: Surgical History H/O thyroidectomy History of esophagogastroduodenoscopy (EGD) Hx of appendectomy Hx of BSO (bilateral salpingo-oophorectomy) Hx of section Hx of cholecystectomy Hx of colonoscopy Hx of laparoscopy <MUSA Arteaga - Last Filed: 11/20/22 16:13> Family History Family History: Family History Father Diabetes mellitus Heart murmur Mother Diabetes mellitus HTN (hypertension) Glaucoma Melanoma <MUSA Arteaga - Last Filed: 11/20/22 16:13> Social History Social History: Social History Household Members: Family Housing: House Do you presently have visiting nurse or other home services: Yes Alcohol intake: never Patient Tobacco Use Status: Current everyday Tobacco user Tobacco use type: Cigarette Cigarettes Per Day: 5 Years Smoked: 34 Smoked in Last 30 Days: No e-Cigarette/Vaping Use: Currently Using Use of substances other than those prescribed or required for medical reasons: No Advance Directives: Yes Advance Directives on File: Yes Advance Directives Date on File: 06/21/22 service: No Current occupational status: unemployed Sexual orientation: Straight/Heterosexual Gender identity: Female Cognitive needs: No Hearing needs: No Vision needs: No <MUSA Arteaga - Last Filed: 11/20/22 16:13> Physical Exam ED Vital Signs: Vital Signs - 24 hr 11/20/22 16:04 Temperature 98.3 F Pulse Rate 105 H Respiratory Rate 20 Blood Pressure 122/67 Pulse Oximetry 100 Oxygen Delivery Method Room Air BMI result Body Mass Index 34.0 <MUSA Arteaga - Last Filed: 11/20/22 16:13> Vital Signs - 24 hr 11/20/22 16:04 Temperature 98.3 F Pulse Rate 105 H Respiratory Rate 20 Blood Pressure 122/67 Pulse Oximetry 100 Oxygen Delivery Method Room Air BMI result Body Mass Index 34.0 <KYLEIGH Mullen - Last Filed: 11/21/22 01:21> Const General: cooperative, healthy appearing, comfortable, no acute distress, well developed, alert, awake and Physically active <KYLEIGH Mullen - Last Filed: 11/21/22 01:21> Orientation/consciousness: patient oriented x3 <KYLEIGH Mullen - Last Filed: 11/21/22 01:21> HENMT Head: Yes normal to inspection, Yes No palpable skull fracture present, Yes normocephalic and Yes atraumatic <KYLEIGH Mullen - Last Filed: 11/21/22 01:21> Eyes Alignment and Position: alignment normal and position normal <KYLEIGH Mullen - Last Filed: 11/21/22 01:21> Periorbital: periorbital findings abnormal (Right eye swelling) <KYLEIGH Mullen - Last Filed: 11/21/22 01:21> Eyelids: Yes other (Right eyelid is swollen) <KYLEIGH Mullen - Last Filed: 11/21/22 01:21> Conjunctivae: conjunctival abnormal <ANSON MullenBC - Last Filed: 11/21/22 01:21> Pupils: Equal, round and reactive pupils present <KYLEIGH Mullen - Last Filed: 11/21/22 01:21> Direct Ophthalmoscopy: no photophobia <KYLEIGH Mullen - Last Filed: 11/21/22 01:21> Neck Neck: Yes normal visual inspection, Yes full ROM, Yes no lymphadenopathy, Yes no meningeal signs, Yes trachea midline, Yes supple, No anterior neck swelling and No tender <KYLEIGH Mullen - Last Filed: 11/21/22 01:21> Chest Chest palpation & inspection: normal inspection of the chest and normal palpation of entire chest wall <KYLEIGH Mullen - Last Filed: 11/21/22 01:21> Resp Effort & Inspection: normal respiratory effort and able to speak in complete sentences <KYLEIGH Mullen - Last Filed: 11/21/22 01:21> Auscultation: clear to auscultation bilaterally <KYLEIGH Mullen - Last Filed: 11/21/22 01:21> Cardio Heart sounds: S1 normal heart sound present and S2 normal heart sound present <KYLEIGH Mullen - Last Filed: 11/21/22 01:21> GI Inspection: Yes normal to inspection and No abdominal wall ecchymosis <KYLEIGH Mullen - Last Filed: 11/21/22 01:21> Palpation (GI): no guarding and not rigid <RAJENDRA Mullen-BC - Last Filed: 11/21/22 01:21> General: No CVA tenderness and Yes no CVA tenderness <RAJENDRA Mullen-BC - Last Filed: 11/21/22 01:21> Back/Spine/Pelvis Back: no CVA tenderness, No CVA tenderness and No back tenderness <RAJENDRA Mullen-BC - Last Filed: 11/21/22 01:21> Skin General skin exam: no rashes or lesions noted and elasticity normal <RAJENDRA Mullen-BC - Last Filed: 11/21/22 01:21> Neuro General: patient oriented x3, gait normal, no meningeal signs and CN's II-XI intact bilaterally <RAJENDRA Mullen-RADHA - Last Filed: 11/21/22 01:21> Cranial nerves: Yes CN's II-XII intact bilaterally and Yes Equal, round and reactive pupils present <RAJENDRA Mullen-RADHA - Last Filed: 11/21/22 01:21> Psych Appearance: grossly normal, well kempt and not disheveled <RAJENDRA Mullen-RADHA - Last Filed: 11/21/22 01:21> Course Course Course Narrative: This is an RME: Additional HPI, ROS, PE not included below will be deferred to primary provider. This is a [id number]-female, with a history of diabetes, who presents to the emergency department with complaints of right eye swelling since yesterday. No trauma or injury. No drainage or itchiness to her eye. On exam she has periorbital edema, upper eyelid >lower lid. Patient reports that pain with EOM. Reports blurred vision. No fevers. VSS. Pt stable to return back to the waiting room until treatment room becomes available. Plan: Labs, CT orbits, va. <MUSA Arteaga - Last Filed: 11/20/22 16:13> Reevaluation(s) Reevaluation #1: Qnao-ow-oxjeumvy right-sided preseptal edema with anterior conjunctivitis. Will send patient home with antibiotics and eyedrops. Patient was encouraged to return if her symptoms will get worse. <Bella Alonso REFRIGERATOR ASSEMBLER-BC - Last Filed: 11/21/22 01:21> Medications Administered Discontinued Medications Generic Name Dose Route Start Last Admin Trade Name Freq PRN Reason Stop Dose Admin Cefuroxime Axetil 500 mg 11/20/22 20:27 11/20/22 20:33 Cefuroxime Axetil 500 Mg Tablet PO 11/20/22 20:28 500 mg ONCE ONE Administration Diphenhydramine HCl 25 mg 11/20/22 20:27 11/20/22 20:33 Diphenhydramine Hcl 25 Mg Capsule PO 11/20/22 20:28 25 mg ONCE ONE Administration Iohexol 100 ml 11/20/22 18:34 11/20/22 18:35 Iohexol 350 Mg/Ml 100 Ml Infus..Btl IV 11/20/22 18:35 85 ml ONCE ONE Administration <MUSA Arteaga - Last Filed: 11/20/22 16:13> Medications Administered Discontinued Medications Generic Name Dose Route Start Last Admin Trade Name Freq PRN Reason Stop Dose Admin Cefuroxime Axetil 500 mg 11/20/22 20:27 11/20/22 20:33 Cefuroxime Axetil 500 Mg Tablet PO 11/20/22 20:28 500 mg ONCE ONE Administration Diphenhydramine HCl 25 mg 11/20/22 20:27 11/20/22 20:33 Diphenhydramine Hcl 25 Mg Capsule PO 11/20/22 20:28 25 mg ONCE ONE Administration Iohexol 100 ml 11/20/22 18:34 11/20/22 18:35 Iohexol 350 Mg/Ml 100 Ml Infus..Btl IV 11/20/22 18:35 85 ml ONCE ONE Administration <Bella Alonso REFRIGERATOR ASSEMBLER-BC - Last Filed: 11/21/22 01:21> Medical Decision Making Medical Decision Making MDM Narrative: This is a [id number]-female, with a history of diabetes, who presents to the emergency department with complaints of right eye swelling since yesterday. No trauma or injury. No drainage or itchiness to her eye. On exam she has periorbital edema, upper eyelid >lower lid. Patient reports that pain with EOM. Reports blurred vision. No fevers. VSS. Pt stable to return back to the waiting room until treatment room becomes available. Plan: Labs, CT orbits, va. Wwfo-je-vkaindgp right-sided preseptal edema with anterior conjunctivitis. Will send patient home with antibiotics and eyedrops. Patient was encouraged to return if her symptoms will get worse. <Bella Alonso REFRIGERATOR ASSEMBLER-BC - Last Filed: 11/21/22 01:21> Differential Diagnosis Differential Diagnoses: The differential diagnosis associated with the presentation includes <Bella Alonso REFRIGERATOR ASSEMBLER-BC - Last Filed: 11/21/22 01:21> Conjunctivitis, <Bella Alonso, REFRIGERATOR ASSEMBLER-BC - Last Filed: 11/21/22 01:21> Lab Data MDM Lab Attestation statement: I reviewed the patient's lab results. <Bella Alonso REFRIGERATOR ASSEMBLER-BC - Last Filed: 11/21/22 01:21> Result Diagrams: 11/20/22 16:17 11/20/22 16:17 <MUSA Arteaga - Last Filed: 11/20/22 16:13> Labs: Lab Results 11/20/22 11/20/22 Range/Units 16:17 16:17 WBC 9.5 (4.8-10.8) X10*3/uL RBC 4.60 (4.20-5.50) X10*6/uL Hgb 14.0 (12.0-16.0) g/dl Hct 41.7 (37.0-47.0) % MCV 90.7 (80.0-98.0) fL MCH 30.4 (27.0-33.0) pg MCHC 33.6 (31.0-35.0) g/dl RDW 13.0 (11.0-16.0) % Plt Count 328 (160-400) X10*3/uL MPV 9.4 (9.4-12.3) fL Immature Gran % (Auto) 0.3 (0.0-0.4) % Neut % (Auto) 57.7 (45-73) % Lymph % (Auto) 34.4 (20-40) % Perkins % (Auto) 5.1 (2-11) % Eos % (Auto) 1.7 (0-4) % Baso % (Auto) 0.8 (0-2) % Lymph # (Auto) 3.3 (1.2-4.9) X10*3/uL Perkins # (Auto) 0.5 (0.1-1.2) X10*3/uL Eos # (Auto) 0.2 (0.0-0.4) X10*3/uL Baso # (Auto) 0.1 (0.0-0.2) X10*3/uL Abs Immat Gran (auto) 0.03 (0.00-0.03) X10*3/uL Absolute Neuts (auto) 5.5 (2.0-8.3) x10*3/uL Absolute Nucleated RBC 0.000 (0.0-0.012) X10*3/uL Nucleated RBC % (auto) 0.0 (0.0-0.2) /100WBC Sodium 141 (135-145) mmol/L Potassium 3.9 (3.3-5.1) mmol/L Chloride 109 H (96-108) mmol/L Carbon Dioxide 26 (22-29) mmol/L Anion Gap 10 L (12-20) BUN 8 L (9-16) mg/dL Creatinine 0.80 (0.5-1.4) mg/dL Estim Creat Clear Calc 89.3 Estimated GFR > 60 Random Glucose 117 H (60-115) mg/dL Calcium 9.4 (8.4-10.2) mg/dL Magnesium 1.7 (1.6-2.6) mg/dL Total Bilirubin 0.4 (0.0-1.0) mg/dL Direct Bilirubin 0.1 (0.0-0.5) mg/dL AST 14 (5-31) U/L ALT 17 (0-31) U/L Alkaline Phosphatase 135 H (39-117) U/L Total Protein 6.4 L (6.5-8.0) g/dL Albumin 4.4 (3.5-5.0) g/dL <MUSA Arteaga - Last Filed: 11/20/22 16:13> Lab Results 11/20/22 11/20/22 Range/Units 16:17 16:17 WBC 9.5 (4.8-10.8) X10*3/uL RBC 4.60 (4.20-5.50) X10*6/uL Hgb 14.0 (12.0-16.0) g/dl Hct 41.7 (37.0-47.0) % MCV 90.7 (80.0-98.0) fL MCH 30.4 (27.0-33.0) pg MCHC 33.6 (31.0-35.0) g/dl RDW 13.0 (11.0-16.0) % Plt Count 328 (160-400) X10*3/uL MPV 9.4 (9.4-12.3) fL Immature Gran % (Auto) 0.3 (0.0-0.4) % Neut % (Auto) 57.7 (45-73) % Lymph % (Auto) 34.4 (20-40) % Perkins % (Auto) 5.1 (2-11) % Eos % (Auto) 1.7 (0-4) % Baso % (Auto) 0.8 (0-2) % Lymph # (Auto) 3.3 (1.2-4.9) X10*3/uL Perkins # (Auto) 0.5 (0.1-1.2) X10*3/uL Eos # (Auto) 0.2 (0.0-0.4) X10*3/uL Baso # (Auto) 0.1 (0.0-0.2) X10*3/uL Abs Immat Gran (auto) 0.03 (0.00-0.03) X10*3/uL Absolute Neuts (auto) 5.5 (2.0-8.3) x10*3/uL Absolute Nucleated RBC 0.000 (0.0-0.012) X10*3/uL Nucleated RBC % (auto) 0.0 (0.0-0.2) /100WBC Sodium 141 (135-145) mmol/L Potassium 3.9 (3.3-5.1) mmol/L Chloride 109 H (96-108) mmol/L Carbon Dioxide 26 (22-29) mmol/L Anion Gap 10 L (12-20) BUN 8 L (9-16) mg/dL Creatinine 0.80 (0.5-1.4) mg/dL Estim Creat Clear Calc 89.3 Estimated GFR > 60 Random Glucose 117 H (60-115) mg/dL Calcium 9.4 (8.4-10.2) mg/dL Magnesium 1.7 (1.6-2.6) mg/dL Total Bilirubin 0.4 (0.0-1.0) mg/dL Direct Bilirubin 0.1 (0.0-0.5) mg/dL AST 14 (5-31) U/L ALT 17 (0-31) U/L Alkaline Phosphatase 135 H (39-117) U/L Total Protein 6.4 L (6.5-8.0) g/dL Albumin 4.4 (3.5-5.0) g/dL <RAJENDRA Mullen-BC - Last Filed: 11/21/22 01:21> Radiology Impression Discussion of test interpretation with radiology: I have reviewed the radiologist's reading. <RAJENDRA Mullen-BC - Last Filed: 11/21/22 01:21> Radiologist Impression: Orbital CT scan FINDINGS: Normal appearance of the osseous orbits. Mild to moderate right-sided preseptal edema. No discrete fluid collection. No left-sided preseptal edema. No retrobulbar edema bilaterally. There is moderate smooth enhancement along the right-sided anterior conjunctiva. Otherwise, normal appearance of the globes. Normal symmetric appearance of the extraocular musculature. No abnormalities of the intraconal or extraconal adipose tissue. Normal appearance of the optic nerve sheaths. Normal appearance of the lacrimal glands. No orbital fluid collections. No abnormalities of the orbital apices. The premaxillary, retromaxillary, pterygopalatine fossa, temporal fossa, and parapharyngeal adipose tissue is maintained. No demonstrated abnormalities of the cavernous sinuses. No demonstrated vascular abnormalities. Normal appearance of the zygomatic arches. No nasal bone fracture. Minimal rightward nasal septal deviation. Mild mucosal thickening of the paranasal sinuses. The mandibular condyles remain well-seated in their respective temporal articular grooves. The mastoid air cells and middle ear cavities remain well aerated. No layering fluid collections. No demonstrated abnormalities of the visualized intracranial structures. CT/CT orbit BI w IV con IMPRESSION: Mild to moderate right-sided preseptal edema with moderate smooth enhancement along the right-sided anterior conjunctiva. Findings are suggestive of nonspecific conjunctivitis. No discrete fluid collection. No retrobulbar edema. ? <BellaRAJENDRA Damon-RADHA - Last Filed: 11/21/22 01:21> Discharge Plan Discharge Clinical Impression: Conjunctivitis <MUSA Arteaga - Last Filed: 11/20/22 16:13> Patient Disposition: Home, Self-Care <MUSA Arteaga - Last Filed: 11/20/22 16:13> Instructions: Conjunctivitis (ED) <MUSA Arteaga - Last Filed: 11/20/22 16:13> Additional Instructions: You were seen here today for right eye swelling. CT scan did not show any abnormality except for conjunctivitis which is mild inflammation of the eyelid. This could be allergic response. You will be given script for eye drops, use it as ordered. Take Zyrtec <MUSA Arteaga - Last Filed: 11/20/22 16:13> Prescriptions: New olopatadine [Eye Allergy Itch-Redness Rlf] 0.1 % drops 1 drp ophthalmic (eye) BID 7 Days Qty: 5 0RF Rx Instructions: separate doses by at least 6-8 hours diphenhydramine HCl [Benadryl] 25 mg capsule 25 mg PO BEDTIME PRN (Reason: allergy symptoms) Qty: 20 0RF cefuroxime axetil 500 mg tablet 500 mg PO BID 7 Days Qty: 14 0RF No Action (DME) lancets 28 gauge misc See Rx Instructions topical QID Qty: 300 3RF Rx Instructions: 3 times a day (DME) blood sugar diagnostic Strip See Rx Instructions Not Applicable QID Qty: 300 3RF Rx Instructions: 3 times a day cholecalciferol (vitamin D3) 25 mcg (1,000 unit) tablet 25 mcg PO DAILY Qty: 30 5RF (DME) pen needle, diabetic [BD Vanessa 2nd Gen Pen Needle] 32 gauge x /32 needle See Rx Instructions .Route Qty: 100 3RF Rx Instructions: Use to inject insulin once a day albuterol sulfate [ProAir HFA] 90 mcg/actuation HFA aerosol inhaler 2 puff inhalation Q6H PRN (Reason: shortness of breath or wheezing) Qty: 18 5RF meclizine 12.5 mg tablet 12.5 mg PO DAILY PRN (Reason: dizziness) Qty: 20 1RF albuterol sulfate 2.5 mg /3 mL (0.083 %) solution for nebulization 2.5 mg inhalation QID PRN (Reason: shortness of breath or wheezing) Qty: 75 0RF ropinirole 0.5 mg tablet 0.5 mg PO BEDTIME Qty: 90 1RF fluticasone propion-salmeterol [Advair Diskus] 250-50 mcg/dose blister with device 1 inh inhalation BID Qty: 180 3RF metformin 750 mg tablet extended release 24 hr 750 mg PO BID 90 Days Qty: 180 1RF duloxetine 30 mg capsule,delayed release(DR/EC) 30 mg PO BID Qty: 180 3RF cetirizine 10 mg tablet 10 mg PO DAILY Qty: 90 3RF Cholestyramine Light 4 gram powder 4 g PO BID Qty: 231 3RF Rx Instructions: administer w/meal; avoid other meds within 1hr before or 4-6hr after dose ezetimibe 10 mg tablet 10 mg PO BEDTIME Qty: 90 3RF Trulicity 3 mg/0.5 mL pen injector 3 mg subcut FR@1000 Qty: 6 1RF tizanidine 4 mg tablet 4 mg PO TID PRN (Reason: for muscle spasm) Qty: 30 0RF gabapentin 400 mg capsule 400 mg PO TID 30 Days Qty: 90 0RF lidocaine 5 % adhesive patch,medicated 1 patch topical DAILY PRN (Reason: painful muscle spasm) Qty: 30 1RF Rx Instructions: leave on most painful area for up to 12 hrs omeprazole 20 mg capsule,delayed release(DR/EC) 20 mg PO DAILY@0630 Qty: 30 2RF amitriptyline 50 mg Tablet 50 mg PO BEDTIME fluticasone propionate 50 mcg/actuation spray,suspension 1 spray intranasal DAILY PRN (Reason: Allergy Symptoms) zfyoyymmmo-iguqwiwsykqvf-vwrf [Fioricet] 50-300-40 mg capsule 1 cap PO Q8H PRN (Reason: migraine headae) Qty: 14 0RF clonazepam 1 mg tablet 1 mg PO BID PRN (Reason: Anxiety) Myrbetriq 25 mg tablet extended release 24 hr 25 mg PO DAILY Qty: 30 0RF (DME) cane with quad tips See Rx Instructions .Route .MEDSUPPLY Qty: 1 0RF Rx Instructions: use as directed (DME) incontinence pad See Rx Instructions .Route .MEDSUPPLY Qty: 120 8RF Rx Instructions: As directed 4 times a day as needed Salonpas(m.salicylate-menthol) 10-3 % adhesive patch,medicated 1 patch topical Q8-12H PRN (Reason: muscle pain) Qty: 20 1RF Rx Instructions: do not exceed 2 doses in a 24 hour period ibuprofen 800 mg tablet 800 mg PO Q12H PRN (Reason: low back pain) Qty: 30 0RF lidocaine [Lidoderm] 5 % adhesive patch,medicated 1 patch topical DAILY Qty: 15 1RF Rx Instructions: leave on most painful area for up to 12 hrs Tresiba FlexTouch U-100 100 unit/mL (3 mL) insulin pen 18 unit subcut BEDTIME 90 Days Qty: 30 4RF ondansetron 4 mg tablet,disintegrating 4 mg PO DAILY PRN (Reason: Nausea) Qty: 14 0RF fluconazole 150 mg tablet 150 mg PO Q3D PRN (Reason: vaginal itching) Qty: 2 0RF zolpidem 10 mg tablet 10 mg PO BEDTIME PRN (Reason: Insomnia) Creon 12,000-38,000 -60,000 unit capsule,delayed release(DR/EC) 1 cap PO QIDWMHS Qty: 240 3RF Rx Instructions: administer with meals and/or snacks famotidine 40 mg tablet 40 mg PO DAILY Qty: 30 2RF Citrucel 500 mg tablet 500 mg PO DAILY Qty: 90 3RF Rx Instructions: take it with full glass of water sennosides [senna] 8.6 mg tablet 8.6 mg PO BEDTIME topiramate 100 mg tablet 100 mg PO BID nortriptyline 25 mg capsule 25 mg PO BEDTIME docusate sodium 100 mg capsule 100 mg PO BID polyethylene glycol 3350 [Miralax] 17 gram/dose powder 238 g PO ONCE Qty: 238 0RF Rx Instructions: As directed by gastroenterology department at [facility] bisacodyl [Dulcolax (bisacodyl)] 5 mg tablet,delayed release (DR/EC) 10 mg PO BEDTIME Qty: 180 4RF <MUSA Arteaga - Last Filed: 11/20/22 16:13> Referrals: Mali Nova MD [Primary Care Provider] - <MUSA Arteaga - Last Filed: 11/20/22 16:13> Interventions: ED Discharge Assessment Last Done: 11/20/22 20:25 <MUSA Arteaga - Last Filed: 11/20/22 16:13> Discharge Date/Time: 11/20/22 20:35 <MUSA Arteaga - Last Filed: 11/20/22 16:13> Print Language: Icelandic <MUSA Arteaga - Last Filed: 11/20/22 16:13>
[2022-11-20 16:04] VITALS: BP 122/67; PULSE 105; RESP 20; TEMP 36.8; O2SAT 100; BMI 34.0
[2022-11-20 16:21] LABS: MANUAL DIFF FLAG NO
[2022-11-20 16:26] LABS: Basophils Absolute Auto 0.1 X10*3/uL (0.0-0.2); Basophils Percent Auto 0.8 % (0-2); Eosinophils Absolute Auto 0.2 X10*3/uL (0.0-0.4); Eosinophils Percent Auto 1.7 % (0-4); Hematocrit 41.7 % (37.0-47.0); Imm Gran Abs Auto 0.03 X10*3/uL (0.00-0.03); Imm Gran Pct Auto 0.3 % (0.0-0.4); Lymphocytes Absolute Auto 3.3 X10*3/uL (1.2-4.9); Lymphocytes Percent Auto 34.4 % (20-40); Mean Corpuscular HGB Conc 33.6 g/dl (31.0-35.0); Mean Corpuscular Hemoglobin 30.4 pg (27.0-33.0); Mean Corpuscular Volume 90.7 fL (80.0-98.0); Mean Platelet Volume 9.4 fL (9.4-12.3); Monocytes Absolute Auto 0.5 X10*3/uL (0.1-1.2); Monocytes Percent Auto 5.1 % (2-11); Neutrophils Absolute Auto 5.5 x10*3/uL (2.0-8.3); Neutrophils Percent Auto 57.7 % (45-73); Platelet Count 328 X10*3/uL (160-400); White Blood Count 9.5 X10*3/uL (4.8-10.8)
[2022-11-20 16:47] LABS: Alanine Aminotransferase 17 U/L (0-31); Albumin Level 4.4 g/dL (3.5-5.0); Alkaline Phosphatase 135 U/L (39-117); Anion Gap 10 (12-20); Aspartate Amino Transferase 14 U/L (5-31); Bilirubin Direct 0.1 mg/dL (0.0-0.5); Bilirubin Total 0.4 mg/dL (0.0-1.0); Blood Urea Nitrogen 8 mg/dL (9-16); Calcium 9.4 mg/dL (8.4-10.2); Carbon Dioxide 26 mmol/L (22-29); Chloride 109 mmol/L (96-108); Creatinine Clr Calc Pharmacy 89.3; Estimated Glomerular Filt Rate > 60; Glucose Random 117 mg/dL (60-115); Magnesium 1.7 mg/dL (1.6-2.6); Potassium 3.9 mmol/L (3.3-5.1); Sodium 141 mmol/L (135-145); Total Protein 6.4 g/dL (6.5-8.0)
--- NOTE | 2022-11-20 18:00 | PC.NURSE ---
Patient presenting for right eye swelling. Upon assessment right eye swollen, patient stating that the pain is going back into her head as well. Patient is alert and oriented, answering all questions appropriately. Calmly laying on stretcher.
[2022-11-20] MEDS: iohexoL 350 MG/ML 100 ML INFUS..BTL IV (18:35)
[2022-11-20] MEDS: diphenhydrAMINE HCL 25 MG CAPSULE PO (20:33)
== END 2022-11-20 20:35 | disposition home or self-care (01) ==
PROVIDERS: Physician Assistant Medical; Emergency Provider Internal Medicine; PCP Internal Medicine
DX: H10.9 Unspecified conjunctivitis (principal)
CPT/HCPCS: 36415; 70481; 80048; 80076; 83735; 85025; 99284; Q9967

== ENCOUNTER 2022-12-06 07:48 | Outpatient (REF) | payer OTHER, SELFPAY ==
--- NOTE | ~2022-12-06 | MM_ITS ---
EXAMINATION: MM SCREENING DIGITAL BREAST TOMOSYNTHESIS, BILATERAL CLINICAL INFORMATION: Screening. Asymptomatic. The lifetime risk of breast cancer based on the Tyrer-Cuzick Model is 5%. COMPARISON: Mammography: 12/04/2021, 07/08/2020, 12/16/2018, 11/04/2017 TECHNIQUE: Digital breast tomosynthesis is performed in both the craniocaudal and mediolateral oblique views along with computer-aided detection (CAD). Synthesized 2D images are generated from the tomosynthesis. FINDINGS: There are scattered areas of fibroglandular density (ACR BI-RADS breast composition Category b). There are no significant masses, abnormal calcifications, or other abnormalities. Parenchymal pattern is similar to prior studies. There is no developing density or architectural abnormality. The axilla and skin contours are unremarkable. No significant changes. MM/MM tomosynthesis screening BI IMPRESSION: No mammographic evidence of malignancy. ASSESSMENT: BI-RADS 1: Negative RECOMMENDATION: Routine annual mammography screening. This patient's information was entered into a reminder system with a target due date for their next mammogram.
== END 2022-12-06 07:49 | disposition home or self-care (01) ==
LOC: HO.MAMMO 07:48
PROVIDERS: PCP Internal Medicine; Visit Provider Internal Medicine
DX: Z12.31 Encounter for screening mammogram for malignant neoplasm of breast (principal)
CPT/HCPCS: 77063; 77067

== ENCOUNTER 2022-12-15 07:30 | Day surgery (SDC) | payer OTHER, SELFPAY ==
[2022-12-13 12:45] VITALS: BMI 32.3
--- NOTE | 2022-12-14 10:52 | HO.ANESPROP2 ---
Documented by User: Sonam Ramirez NP 12/14/22 10:53 HPI - Anesthesia Eval Consult details Narrative: 52yo F for Upper Endoscopy and Colonoscopy PMF Active Problems Active Problems: All Active Problems (Updated 11/21/22 @ 00:25 by Background Daemon) Controlled diabetes mellitus type II without complication (Acute) Diarrhea (Acute) Lower thoracic back pain (Acute) Pancreatic insufficiency (Acute) Migraines (Acute) Chronic vertigo (Acute) Depression with anxiety (Acute) COVID-19 vaccination declined (Acute) Decreased hearing of right ear (Acute) Tinnitus of right ear (Acute) Arthritis (Acute) Mixed stress and urge incontinence (Acute) Allergic rhinitis (Acute) GERD (gastroesophageal reflux disease) (Acute) Restless leg syndrome (Acute) Fibromyalgia (Acute) Non-toxic multinodular goiter (Acute) Dyslipidemia (Acute) Obesity (BMI 30-39.9) (Acute) Past Medical History Medical History (Updated 11/21/22 @ 00:25 by Background Daemon) Anxiety Arthritis B12 deficiency Controlled diabetes mellitus type II without complication COVID-19 vaccination declined Decreased hearing of right ear Depression with anxiety Dyslipidemia Fibromyalgia GERD (gastroesophageal reflux disease) Mild intermittent asthma Mixed stress and urge incontinence Non-toxic multinodular goiter Obesity (BMI 30-39.9) Pancreatic insufficiency Pelvic pain Restless leg syndrome Tinnitus of right ear Type 2 diabetes mellitus with microalbuminuria, with long-term current use of insulin Vertigo Family History Family History Father Diabetes mellitus Heart murmur Mother Diabetes mellitus HTN (hypertension) Glaucoma Melanoma Family history of problems with anesthesia: No Surgical History Surgical History H/O thyroidectomy History of esophagogastroduodenoscopy (EGD) Hx of appendectomy Hx of BSO (bilateral salpingo-oophorectomy) Hx of section Hx of cholecystectomy Hx of colonoscopy Hx of laparoscopy History of Problems with Anesthesia: No Social History Social History Household Members: Family Housing: House Do you presently have visiting nurse or other home services: Yes Alcohol intake: never Patient Tobacco Use Status: Former Tobacco user Quit Date: 1 year ago Tobacco use type: Cigarette Cigarettes Per Day: 5 Years Smoked: 34 e-Cigarette/Vaping Use: Currently Using Use of substances other than those prescribed or required for medical reasons: No Are you DNR?: No Advance Directives: No Advance Directives Information Provided: Yes Advance Directives Date on File: 06/21/22 Patient : No service: No Current occupational status: unemployed Sexual orientation: Straight/Heterosexual Gender identity: Female Cognitive needs: No Hearing needs: No Vision needs: No Meds Allergies Allergy/AdvReac Type Severity Reaction Status Date / Time aspirin Allergy Intermediate rash Verified 11/15/22 08:57 latex [LATEX] Allergy Mild HIVES/RASH Verified 11/15/22 08:57 Penicillins Allergy Mild unknown Verified 11/15/22 08:57 amoxicillin AdvReac Intermediate diarrhea Verified 11/15/22 08:57 Beef Containing Products AdvReac Intermediate DIARRHEA/VO Verified 11/15/22 08:57 [employer] Allergy Intermediate inflammation Uncoded 11/15/22 08:57 and swelling Home Medications Medication Instructions Recorded Confirmed Last Taken Type clonazepam 1 mg tablet 1 mg PO BID PRN Anxiety 04/28/20 06/05/22 Unknown History zolpidem 10 mg tablet 10 mg PO BEDTIME PRN Insomnia 07/20/21 06/05/22 Unknown History amitriptyline 50 mg tablet 50 mg PO BEDTIME 06/05/22 06/05/22 Unknown History fluticasone propionate 50 1 spray intranasal DAILY PRN 06/05/22 06/05/22 Unknown History mcg/actuation nasal Allergy Symptoms spray,suspension docusate sodium 100 mg capsule 100 mg PO BID 09/15/22 Unknown History nortriptyline 25 mg capsule 25 mg PO BEDTIME 09/15/22 Unknown History sennosides 8.6 mg tablet (senna) 8.6 mg PO BEDTIME constipation 09/15/22 Unknown History topiramate 100 mg tablet 100 mg PO BID 09/15/22 Unknown History Exam Exam Date and Time: December 14, 2022 1052 Height,Weight and Vital Signs: Height 5 ft 4 in Weight 85.275 kg Narrative Narrative: EKG 05/2022 Vent. Rate : 096 BPM ? ? Atrial Rate : 096 BPM ?? P-R Int : 136 ms? QRS Dur : 086 ms ? ? QT Int : 334 ms ? ? ? P-R-T Axes : 055 -33 030 degrees ?? QTc Int : 421 ms ? Normal sinus rhythm Left anterior fascicular block RSR' or QR pattern in V1 suggests right ventricular conduction delay Abnormal ECG When compared with ECG of 21-OCT-2021 12:09, No significant change was found Assessment and Plan Assessment Anesthesia Assessment: Chart Reviewed Final Anesthetic Review Family History of Problems with Anesthesia: No History of Problems with Anesthesia: No Documented by User: Sancho Fisher MD 12/15/22 09:09 [facility] Past Medical History Medical History (Updated 11/21/22 @ 00:25 by Background Ewelina) Anxiety Arthritis B12 deficiency Controlled diabetes mellitus type II without complication COVID-19 vaccination declined Decreased hearing of right ear Depression with anxiety Dyslipidemia Fibromyalgia GERD (gastroesophageal reflux disease) Mild intermittent asthma Mixed stress and urge incontinence Non-toxic multinodular goiter Obesity (BMI 30-39.9) Pancreatic insufficiency Pelvic pain Restless leg syndrome Tinnitus of right ear Type 2 diabetes mellitus with microalbuminuria, with long-term current use of insulin Vertigo Family History Family History Father Diabetes mellitus Heart murmur Mother Diabetes mellitus HTN (hypertension) Glaucoma Melanoma Surgical History Surgical History H/O thyroidectomy History of esophagogastroduodenoscopy (EGD) Hx of appendectomy Hx of BSO (bilateral salpingo-oophorectomy) Hx of section Hx of cholecystectomy Hx of colonoscopy Hx of laparoscopy Social History Social History Household Members: Family Housing: House Do you presently have visiting nurse or other home services: Yes Alcohol intake: never Patient Tobacco Use Status: Former Tobacco user Quit Date: 1 year ago Tobacco use type: Cigarette Cigarettes Per Day: 5 Years Smoked: 34 e-Cigarette/Vaping Use: Currently Using Use of substances other than those prescribed or required for medical reasons: No Are you DNR?: No Advance Directives: No Advance Directives Information Provided: Yes Advance Directives Date on File: 06/21/22 Patient : No service: No Current occupational status: unemployed Sexual orientation: Straight/Heterosexual Gender identity: Female Cognitive needs: No Hearing needs: No Vision needs: No Meds Allergies Allergy/AdvReac Type Severity Reaction Status Date / Time aspirin Allergy Intermediate rash Verified 11/15/22 08:57 latex [LATEX] Allergy Mild HIVES/RASH Verified 11/15/22 08:57 Penicillins Allergy Mild unknown Verified 11/15/22 08:57 amoxicillin AdvReac Intermediate diarrhea Verified 11/15/22 08:57 Beef Containing Products AdvReac Intermediate DIARRHEA/VO Verified 11/15/22 08:57 [employer] Allergy Intermediate inflammation Uncoded 11/15/22 08:57 and swelling Home Medications Medication Instructions Recorded Confirmed Last Taken Type clonazepam 1 mg tablet 1 mg PO BID PRN Anxiety 04/28/20 06/05/22 Unknown History zolpidem 10 mg tablet 10 mg PO BEDTIME PRN Insomnia 07/20/21 06/05/22 Unknown History amitriptyline 50 mg tablet 50 mg PO BEDTIME 06/05/22 06/05/22 Unknown History fluticasone propionate 50 1 spray intranasal DAILY PRN 06/05/22 06/05/22 Unknown History mcg/actuation nasal Allergy Symptoms spray,suspension docusate sodium 100 mg capsule 100 mg PO BID 09/15/22 Unknown History nortriptyline 25 mg capsule 25 mg PO BEDTIME 09/15/22 Unknown History sennosides 8.6 mg tablet (senna) 8.6 mg PO BEDTIME constipation 09/15/22 Unknown History topiramate 100 mg tablet 100 mg PO BID 09/15/22 Unknown History Exam Airway Mallampati Class: II TM Dist: >3cm Neck ROM: Full Heart: rrr Lungs: cta Assessment and Plan Assessment Anesthesia Assessment: Anesthesia Plan Discussed Final Anesthetic Review NPO: Yes ASA Class: III Final Preanesthetic Review: No Changes in Pt Med Stat, Meds/Allgs Chart Reviewed, Consent Obtained/Reviewed and Anes Risks/Benef Reviewed Patient Risk: Intermediate Procedure Risk: Intermediate Anesthetic Plan Anesthetic Plan: MAC: and Agree w/ Assess. and Plan Disposition: Standard PACU
--- NOTE | 2022-12-15 08:51 | MHC.SHP ---
Pre-Procedural Eval Section A Date of Service: 12/15/22 Section B Chief Complaint: Encounter for screening for malignant neoplasm Details of Present Illness: reflux history also to get EGD Relevant Family History (Specify if Yes): No Relevant Social History: None Present Medications: see Short Stay Collaborative assessment Medical History: Significant History (Anxiety Arthritis B12 deficiency Controlled diabetes mellitus type II without complication COVID-19 vaccination declined Decreased hearing of right ear Depression with anxiety Dyslipidemia Fibromyalgia GERD (gastroesophageal reflux disease) Mild intermittent asthma Mixed stress and urge incontinence) History of Previous Operations: Relevant previous surgery/procedure and date(s) (H/O thyroidectomy History of esophagogastroduodenoscopy (EGD) Hx of appendectomy Hx of BSO (bilateral salpingo-oophorectomy) Hx of section Hx of cholecystectomy Hx of colonoscopy Hx of laparoscopy) Allergies: Allergies Allergy/AdvReac Type Severity Reaction Status Date / Time aspirin Allergy Intermediate rash Verified 11/15/22 08:57 latex [LATEX] Allergy Mild HIVES/RASH Verified 11/15/22 08:57 Penicillins Allergy Mild unknown Verified 11/15/22 08:57 amoxicillin AdvReac Intermediate diarrhea Verified 11/15/22 08:57 Beef Containing Products AdvReac Intermediate DIARRHEA/VO Verified 11/15/22 08:57 [employer] Allergy Intermediate inflammation Uncoded 11/15/22 08:57 and swelling Review of Systems Sugical H&P ROS: Negative: Constitution, Cardiovascular, Respiratory, Neurological, Psychiatric, Hem-Onc, Allergic/Immunologic, Gastrointestinal, Genitourinary, Musculoskeletal, Integumentary, Endocrine and Eyes/Ears/Nose/Throat Exam Surgical H&P Exam: Normal: HEENT, Normal: Heart, Normal: Lungs, Normal: Extremities, Normal: Abdomen, Normal: Skin and Normal: Neurological Plan Diagnosis/Plan: Unchanged I have reviewed the history and physical and performed a pertinent physical examination on my patient. No changes have occurred unless specified. Time Spent With Patient Time: Total time managing care of this patient today ____ minutes.
[2022-12-15 08:59] VITALS: BMI 32.4
[2022-12-15] MEDS: Lactated Ringers 1,000 ML 100 ML IVCONT (09:05)
[2022-12-15 09:06] VITALS: BP 119/66; PULSE 95; RESP 18; TEMP 36; O2SAT 99
--- NOTE | 2022-12-15 09:29 | W.PM.OPN ---
Operative Note Operative Note Date of Service: 12/15/22 Narrative: Operative Information Procedure Description: EGD, Colonoscopy Indication: screening, hx of reflux Anesthesia: MAC FLEXIBLE TRANSORAL UPPER GASTROINTESTINAL ENDOSCOPY AND COLONOSCOPY PROCEDURE NOTE UPPER ENDOSCOPY Consent: Indications for the procedure and potential complications of bleeding, perforation, reaction to medications and missed diagnosis were discussed with the patient and informed consent was obtained. Instrument: Olympus GIF H 190 J mid size upper endoscope Monitoring: Vital signs and clinical assessment, continuous EKG monitoring, Pulse oximetry, Carbon Dioxide monitoring and blood pressure monitoring were done throughout the procedure. Procedure: The patient was placed in the left lateral decubitis position and pre-procedure medications were administered and a bite block was placed. The endoscope was inserted into the mouth and advanced under direct vision to the third part of duodenum. A careful inspection was made as the upper endoscope was withdrawn including a retroflexed examination of the proximal stomach; Findings and interventions are described below. Findings: Larynx:normal Esophagus: GE junction at 33 cm, diaphragm hiatus at 33 cm, bx taken from GEJ and distal/proximal esophagus Stomach: scattered erythema. Biopsies were obtained. Grade 2 flap valve on retroflexed examination of the cardia. Bile acid noted in stomach-moderate amount Duodenum: Normal bulb and descending duodenum, bx taken Intervention: Biopsies as noted above COLONOSCOPY Instrument: Olympus variable stiffness pediatric scope 190L Colonoscopy Monitoring: Vital signs and clinical assessment, continuous EKG monitoring, Pulse oximetry, Carbon Dioxide monitoring and blood pressure monitoring were done throughout the procedure. Colon withdrawal time was 8 minutes. Procedure: The patient was placed in the left lateral decubitis position and pre-procedure medications were administered. After a digital rectal examination of the ano-rectum, the video colonoscope was inserted into the rectum and advanced through the colon to the cecum/TI. The colonoscope was slowly withdrawn in a retrograde panoramic fashion and the colon mucosa was carefully examined including a retroflexed view of the rectum. Findings and interventions are described below. Procedure Difficulty:easy Findings: Terminal Ileum-normal Cecum: 8-10 mm sessile polyp removed with cold snare Ascending Colon: few diverticula seen Transverse Colon -normal Descending Colon: scattered diverticula seen Sigmoid Colon:moderate diverticula seen Rectum: Retroflexion with small internal hemorrhoids, grade I Anorectum - normal Colon preparation: [place] Bowel Preparation Scale Right colon; 2 Transverse colon: 2 Left colon; 1-2 (0 = Unprepared colon segment with mucosa not seen due to solid stool that cannot be cleared. 1 = Portion of mucosa of the colon segment seen, but other areas of the colon segment not well seen due to staining, residual stool and/or opaque liquid. 2 = Minor amount of residual staining, small fragments of stool and/or opaque liquid, but mucosa of colon segment seen well. 3 = Entire mucosa of colon segment seen well with no residual staining, small fragments of stool or opaque liquid) Impression and Post Procedure Diagnosis: Endoscopy Findings: bile acid reflux gastritis Colonoscopy Findings: polyp internal hemorrhoids diverticular disease Plan: Await Pathology results Repeat Colonoscopy in 5 years due to polyp and fair prep on left or earlier if clinically indicated High fiber diet leaflet avoid straining at stool, epsom salts and sitz bath, anusol supps or cream consider trial of urosdiol or welchol if ongoing reflux sx Above findings were reviewed with the patient and relevant handouts were provided if indicated.
[2022-12-15 10:14] VITALS: BP 107/60; PULSE 96; RESP 16; TEMP 36.6; O2SAT 97
[2022-12-15 10:29] VITALS: BP 116/68; PULSE 87; RESP 16; TEMP 36.4; O2SAT 97
[2022-12-15 12:18] LABS: Glucose, Whole Blood 102 mg/dL (60-115)
== END 2022-12-15 11:13 | disposition home or self-care (01) ==
PROVIDERS: PCP Internal Medicine; Visit Provider Internal Medicine Gastroenterology
PROC: (CPT 45385; principal; 2022-12-15 10:00)
DX: Z12.11 Encounter for screening for malignant neoplasm of colon (principal); D12.0 Benign neoplasm of cecum; K57.30 Diverticulosis of large intestine without perforation or abscess without bleeding; K64.0 First degree hemorrhoids; K21.9 Gastro-esophageal reflux disease without esophagitis; K29.50 Unspecified chronic gastritis without bleeding; K44.9 Diaphragmatic hernia without obstruction or gangrene; F41.8 Other specified anxiety disorders; M79.7 Fibromyalgia; J45.20 Mild intermittent asthma, uncomplicated; K86.89 Other specified diseases of pancreas; E78.5 Hyperlipidemia, unspecified; E11.9 Type 2 diabetes mellitus without complications; Z79.51 Long term (current) use of inhaled steroids; Z79.899 Other long term (current) drug therapy; Z88.8 Allergy status to other drugs, medicaments and biological substances; Z88.0 Allergy status to penicillin; Z87.891 Personal history of nicotine dependence; Z91.040 Latex allergy status
CPT/HCPCS: 45385; 43239; 82947; 88305; 88342

== ENCOUNTER → 2023-01-21 13:12 | Outpatient (BNVA) | payer OTHER, SELFPAY | PROVIDERS: Visit Provider Nurse Practitioner Family | DX: K59.1 Functional diarrhea (principal); K21.9 Gastro-esophageal reflux disease without esophagitis; K86.89 Other specified diseases of pancreas; D36.9 Benign neoplasm, unspecified site | CPT/HCPCS: 99212 ==

== ENCOUNTER 2023-02-18 08:47 | Emergency (ER) | payer OTHER, SELFPAY ==
--- NOTE | ~2023-02-18 | XR_ITS ---
EXAMINATION: XR FOOT, RIGHT CLINICAL INFORMATION: Right foot pain status post blunt injury. COMPARISON: None available. TECHNIQUE: AP, lateral, and oblique views of the right foot. FINDINGS: There is no acute fracture or dislocation. The joint spaces are unremarkable. The tarsal bones are normally aligned. Very small retrocalcaneal spur. Mild dorsal soft tissue swelling. No radiopaque foreign body. XR/XR foot RT 2V IMPRESSION: 1. Mild dorsal soft tissue swelling without acute underlying osseous abnormality. 2. Very small degenerative retrocalcaneal spur.
[2023-02-18 08:55] VITALS: BP 145/90; PULSE 80; RESP 16; TEMP 36.6; O2SAT 97; BMI 30.7
--- NOTE | 2023-02-18 09:09 | ED.GENADULT ---
HPI - General Adult General Chief complaint: Extremity Injury, Lower Stated complaint: R Toe Foot Pain S/P Injury 02/17/23 Time Seen by Provider: 02/18/23 09:07 Source: patient Mode of arrival: ambulatory Limitations: no limitations History of Present Illness HPI narrative: Patient is a 52 year old assigned female at with a history of DM presenting to the emergency department today with right great toe pain. Patient states that yesterday, she dropped a can onto her right great toe and now has pain. Patient denies any dizziness, lightheadedness, abdominal pain, nausea, vomiting, fever, chills, blurry vision, double vision, loss of vision, chest pain, difficulty breathing, shortness of breath, back pain, night sweats, pain with urination, increased urinary frequency, increased urinary urgency, blood in her urine or stool, syncope or a near syncopal episode, bowel incontinence, bladder incontinence, bowel retention, bladder retention, or any other complaints at this time. Onset (ago): day(s) (1) Location: right (great toe) Radiation: non-radiation Severity: mild Severity scale (1-10): 2 Quality: aching and dull Pain Consistency: constant Relieving factors: none Exacerbating factors: none Associated symptoms: denies other symptoms Treatments prior to arrival: none Related Data Home Medications Medication Instructions Recorded Confirmed clonazepam 1 mg tablet 1 mg PO BID PRN Anxiety 04/28/20 06/05/22 zolpidem 10 mg tablet 10 mg PO BEDTIME PRN Insomnia 07/20/21 06/05/22 amitriptyline 50 mg tablet 50 mg PO BEDTIME 06/05/22 06/05/22 fluticasone propionate 50 1 spray intranasal DAILY PRN 06/05/22 06/05/22 mcg/actuation nasal Allergy Symptoms spray,suspension docusate sodium 100 mg capsule 100 mg PO BID 09/15/22 nortriptyline 25 mg capsule 25 mg PO BEDTIME 09/15/22 sennosides 8.6 mg tablet (senna) 8.6 mg PO BEDTIME constipation 09/15/22 topiramate 100 mg tablet 100 mg PO BID 09/15/22 Previous Rx's Medication Instructions Recorded mirabegron 25 mg tablet,extended 25 mg PO DAILY #30 tabs 10/06/20 release 24 hr (Myrbetriq) cane with quad tips #1 ea 07/07/21 methylcellulose (laxative) 500 mg 500 mg PO DAILY #90 tabs 05/05/22 tablet (Citrucel) pen needle, diabetic 32 gauge x #100 ea 05/17/22 (BD Vanessa 2nd Gen Pen Needle) oicizztxhj-fbfupxhlmdhrl-rnragkgb 1 cap PO Q8H PRN migraine headae 06/07/22 50 mg-300 mg-40 mg capsule #14 caps (Fioricet) fluconazole 150 mg tablet 150 mg PO Q3D PRN vaginal itching 06/21/22 2 doses #2 tabs insulin degludec 100 unit/mL (3 18 unit (0.18 mL) subcut BEDTIME 06/21/22 mL) subcutaneous pen (Tresiba 90 days #30 mL FlexTouch U-100 insulin) ondansetron 4 mg disintegrating 4 mg PO DAILY PRN Nausea #14 tabs 06/21/22 tablet albuterol sulfate 90 mcg/actuation 2 puff inhalation Q6H PRN 06/25/22 aerosol inhaler (ProAir HFA) shortness of breath or wheezing #18 grams meclizine 12.5 mg tablet 12.5 mg PO DAILY PRN dizziness #20 06/25/22 tabs albuterol sulfate 2.5 mg/3 mL 2.5 mg (3 mL) inhalation QID PRN 06/30/22 (0.083 %) solution for nebulization shortness of breath or wheezing #75 mL lidocaine 5 % topical patch 1 patch topical DAILY #15 ea 08/23/22 (Lidoderm) cetirizine 10 mg tablet 10 mg PO DAILY #90 tabs 09/03/22 duloxetine 30 mg capsule,delayed 30 mg PO BID #180 caps 09/03/22 release fluticasone 250 mcg-salmeterol 50 1 inh inhalation BID #180 ea 09/03/22 mcg/dose blistr powdr for inhalation (Advair Diskus) metformin 750 mg tablet,extended 750 mg PO BID 90 days #180 tabs 09/03/22 release 24 hr bisacodyl 5 mg tablet,delayed 10 mg PO BEDTIME #180 tabs 09/15/22 release (Dulcolax (bisacodyl)) cholestyramine-aspartame 4 gram 4 g PO BID #231 grams 09/21/22 oral powder (Cholestyramine Light) ezetimibe 10 mg tablet 10 mg PO BEDTIME #90 tabs 10/06/22 dulaglutide 3 mg/0.5 mL 3 mg (0.5 mL) subcut FR@1000 #6 mL 11/05/22 subcutaneous pen injector (Trulicity) lidocaine 5 % topical patch 1 patch topical DAILY PRN painful 11/15/22 muscle spasm #30 ea methyl salicylate 10 %-menthol 3 % 1 patch topical Q8-12H PRN muscle 11/15/22 topical patch (Salonpas (methyl pain #20 ea salicylate-menthol)) diphenhydramine HCl 25 mg capsule 25 mg PO BEDTIME PRN allergy 11/20/22 (Benadryl) symptoms #20 caps olopatadine 0.1 % eye drops (Eye 1 drp ophthalmic (eye) BID 7 days 11/20/22 Allergy Itch-Redness Relief) #5 mL omeprazole 20 mg capsule,delayed 20 mg PO DAILY@0630 gerd #30 caps 11/24/22 release incontinence pad #120 ea 12/23/22 ropinirole 0.5 mg tablet 0.5 mg PO BEDTIME #90 caps 12/28/22 cholecalciferol (vitamin D3) 25 25 mcg PO DAILY #90 tabs 01/05/23 mcg (1,000 unit) tablet gabapentin 400 mg capsule 400 mg PO TID 30 days #90 caps 01/05/23 fluconazole 150 mg tablet 150 mg PO Q3D 2 doses #2 tabs 01/29/23 (Diflucan) tizanidine 4 mg tablet 4 mg PO TID PRN for muscle spasm 02/02/23 #30 tabs blood sugar diagnostic (FreeStyle #300 ea 02/14/23 Lite Strips) blood-glucose meter (FreeStyle #1 ea 02/14/23 Lite Meter kit) lancets 28 gauge (FreeStyle #300 ea 02/14/23 Lancets) famotidine 40 mg tablet 40 mg PO DAILY #30 tabs 02/16/23 Allergies Allergy/AdvReac Type Severity Reaction Status Date / Time aspirin Allergy Intermediate rash Verified 01/29/23 09:20 latex [LATEX] Allergy Mild HIVES/RASH Verified 01/29/23 09:20 Penicillins Allergy Mild unknown Verified 01/29/23 09:20 amoxicillin AdvReac Intermediate diarrhea Verified 01/29/23 09:20 Beef Containing Products AdvReac Intermediate DIARRHEA/VO Verified 01/29/23 09:20 MITING [employer] Allergy Intermediate inflammation Uncoded 01/29/23 09:20 and swelling Review of Systems Constitutional: Constitutional: Reports no additional constitutional complaints, Denies chills, Denies fever(s) and Denies night sweats Eyes: Eyes: Reports no additional eye complaints, Denies blurry vision, Denies change in vision, Denies diplopia, Denies eye discharge, Denies loss of vision and Denies eye pain ENT: Denies dizziness Cardiovascular: Cardiovascular: Reports no additional cardiovascular complaints, Denies chest pain, Denies lightheadedness, Denies Loss of Consciousness and Denies dyspnea Respiratory: Respiratory: Reports no additional respiratory complaints and Denies dyspnea Gastrointestinal: Gastrointestinal: Reports no additional gastrointestinal complaints, Denies abdominal pain, Denies melena, Denies hematochezia, Denies change in bowel habits and Denies change in stool character Genitourinary: Genitourinary: Denies hematuria, Denies urinary frequency, Denies dysuria, Denies urinary incontinence, Denies urinary hesitancy and Denies urinary urgency Musculoskeletal: Musculoskeletal: Reports no additional musculoskeletal complaints, Denies numbness and Denies tingling Comments: right great toe pain Neurologic: Denies dizziness, Denies loss of vision, Denies numbness and Denies tingling Psychiatric: Psychiatric: Reports no additional psychiatric complaints Endocrine: Endocrine: Reports no additional endocrine complaints Hematologic/Lymphatic: Hematologic/Lymphatic: Reports no additional hematologic/lymphatic complaints Allergic/Immunologic: Allergic/Immunologic: Reports no additional allergic/immunologic complaints [facility] Past Medical History Attestation statement: The following information was validated with the patient. Source: old records reviewed and nursing notes reviewed Medical History Anxiety Arthritis B12 deficiency Candidiasis Controlled diabetes mellitus type II without complication COVID-19 vaccination declined Decreased hearing of right ear Depression with anxiety Diarrhea Dyslipidemia Fibromyalgia GERD (gastroesophageal reflux disease) Lower thoracic back pain Mild intermittent asthma Mixed stress and urge incontinence Non-toxic multinodular goiter Obesity (BMI 30-39.9) Pancreatic insufficiency Pelvic pain Restless leg syndrome Tinnitus of right ear Tubular adenoma Type 2 diabetes mellitus with microalbuminuria, with long-term current use of insulin Vertigo Surgical History H/O thyroidectomy History of esophagogastroduodenoscopy (EGD) Hx of appendectomy Hx of BSO (bilateral salpingo-oophorectomy) Hx of section Hx of cholecystectomy Hx of colonoscopy Hx of laparoscopy Family History Family History Father Diabetes mellitus Heart murmur Mother Diabetes mellitus HTN (hypertension) Glaucoma Melanoma Social History Social History Household Members: Family Housing: House Do you presently have visiting nurse or other home services: Yes Alcohol intake: never Patient Tobacco Use Status: Former Tobacco user Quit Date: 1 year ago Tobacco use type: Cigarette Cigarettes Per Day: 5 Years Smoked: 34 e-Cigarette/Vaping Use: Currently Using Advance Directives: Yes Advance Directives on File: Yes Advance Directives Date on File: 06/21/22 service: No Current occupational status: unemployed Sexual orientation: Straight/Heterosexual Gender identity: Female Cognitive needs: No Hearing needs: No Vision needs: No Physical Exam ED Vital Signs: Vital Signs - 24 hr 02/18/23 08:55 Temperature 97.9 F Pulse Rate 80 Respiratory Rate 16 Blood Pressure 145/90 H Pulse Oximetry 97 Oxygen Delivery Method Room Air BMI result Body Mass Index 30.7 Const General: cooperative, no acute distress, alert and awake Nutritional Appearance: well nourished Orientation/consciousness: patient oriented x3 Limitations: no limitations HENMT Head: Yes normal to inspection and Yes atraumatic Ears: hearing grossly normal bilaterally and external ears normal General nose exam: Normal external nose present, no nasal discharge noted and no epistaxis Face and sinus: Yes normal facial exam, No abrasion and No laceration Mouth: Normal oral and palatal mucosa present, no drooling and no muffled voice Eyes General: appearance normal, both eyes and all related structures Periorbital: periorbital findings normal Eyelids: Yes eyelids normal Conjunctivae: conjunctivae normal Pupils: Equal, round and reactive pupils present EOM: EOMs intact bilaterally Neck Neck: Yes normal visual inspection, Yes full ROM and Yes no lymphadenopathy Chest Chest palpation & inspection: normal inspection of the chest Resp Effort & Inspection: normal respiratory effort and able to speak in complete sentences GI Inspection: Yes normal to inspection Neuro General: patient oriented x3 and moves all extremities Cranial nerves: Yes Equal, round and reactive pupils present Cognition (Neuro): normal cognition Motor exam (neuro): 5/5 motor strength present throughout Sensory Exam: Normal double simultaneous stimulation for sensation Coordination: oeewkt-qo-scrh test normal Extrem Other: swelling and bruising to the dorsal aspect of the right great toe General: Yes full ROM and Yes capillary refill normal Psych Appearance: grossly normal Mental Status: mental status grossly normal Affect: normal affect Attitude: cooperative Thought process: Normal thought process present Thought content: Normal thought content present Insight: Good insight present (Psych) Procedures Orthopedic Splinting/Casting Injury #1: Side: right Lower Extremity Injury Location: toe (great) Lower Extremity Immobilizer: boot orthosis Medical Decision Making Medical Decision Making MDM Narrative: Patient is a 52 year old assigned female at with a history of DM presenting to the emergency department today with right great toe pain. Patient's physical exam was as noted in the physical exam portion of this chart. Patient's right foot x-ray was read as no acute process however when I reviewed the films, I believe there is a small fracture of the distal phalanx of the great toe. I explained my physical exam findings as well as all test results to the patient. I answered all questions asked by the patient. Patient's right foot was placed in a walking boot, without incident. Patient's PMS was in tact prior to and after boot placement. I stressed the importance of the patient taking her medication as prescribed. I stressed the importance of the patient following up with her primary care provider and an orthopedic provider. I stressed the importance of the patient returning to the emergency department immediately if her symptoms were to worsen or if she were to develop any dizziness, shortness of breath, difficulty breathing, chest pain, blurry vision, loss of vision, nausea, vomiting, abdominal pain, fever, chills, back pain, or any other complaints. Patient verbalized agreement and understanding with this treatment plan and discharge. Differential Diagnosis Differential Diagnoses: The differential diagnosis associated with the presentation includes Toe fracture Toe contusion Independent Interpretation I performed an independent interpretation of an: Plain X-Ray Interpretation: My interpretation is that there is a possible distal great toe fracture which differs from the radiologist's impression of this imaging study. EXAMINATION: XR FOOT, RIGHT CLINICAL INFORMATION: Right foot pain status post blunt injury.? COMPARISON: None available.? TECHNIQUE: AP, lateral, and oblique views of the right foot. FINDINGS: There is no acute fracture or dislocation. The joint spaces are unremarkable. The tarsal bones are normally aligned. Very small retrocalcaneal spur. Mild dorsal soft tissue swelling. No radiopaque foreign body.? XR/XR foot RT 2V IMPRESSION: 1.? Mild dorsal soft tissue swelling without acute underlying osseous abnormality. 2.? Very small degenerative retrocalcaneal spur. Dictated By: Allan Goodwin MD Signed By: Electronically signed by Allan Goodwin MD 02/18/23 0928 Radiology Impression Discussion of test interpretation with radiology: I have reviewed the radiologist's reading. Discharge Plan Discharge Clinical Impression: Fracture of toe Patient Disposition: Home, Self-Care Instructions: Toe Fracture (ED) Additional Instructions: Follow up with your primary care provider and an orthopedic provider. Return to the emergency department immediately if your symptoms worsen or if you develop any dizziness, shortness of breath, difficulty breathing, chest pain, blurry vision, loss of vision, nausea, vomiting, abdominal pain, fever, chills, back pain, or any other complaints. Karma un seguimiento con roberto proveedor de atenci?n primaria y un proveedor ortop?dico. Regrese al departamento de emergencias de inmediato si roger s?ntomas empeoran o si presenta mareos, falta de aire, dificultad para respirar, dolor de pecho, visi?n borrosa, p?rdida de la visi?n, n?useas, v?mitos, dolor abdominal, fiebre, escalofr?os, dolor de espalda o cualquier otras quejas. Prescriptions: No Action (DME) pen needle, diabetic [BD Vanessa 2nd Gen Pen Needle] 32 gauge x 5/32 needle See Rx Instructions .Route Qty: 100 3RF Rx Instructions: Use to inject insulin once a day albuterol sulfate [ProAir HFA] 90 mcg/actuation HFA aerosol inhaler 2 puff inhalation Q6H PRN (Reason: shortness of breath or wheezing) Qty: 18 5RF meclizine 12.5 mg tablet 12.5 mg PO DAILY PRN (Reason: dizziness) Qty: 20 1RF albuterol sulfate 2.5 mg /3 mL (0.083 %) solution for nebulization 2.5 mg inhalation QID PRN (Reason: shortness of breath or wheezing) Qty: 75 0RF fluticasone propion-salmeterol [Advair Diskus] 250-50 mcg/dose blister with device 1 inh inhalation BID Qty: 180 3RF metformin 750 mg tablet extended release 24 hr 750 mg PO BID 90 Days Qty: 180 1RF duloxetine 30 mg capsule,delayed release(DR/EC) 30 mg PO BID Qty: 180 3RF cetirizine 10 mg tablet 10 mg PO DAILY Qty: 90 3RF Cholestyramine Light 4 gram powder 4 g PO BID Qty: 231 3RF Rx Instructions: administer w/meal; avoid other meds within 1hr before or 4-6hr after dose ezetimibe 10 mg tablet 10 mg PO BEDTIME Qty: 90 3RF Trulicity 3 mg/0.5 mL pen injector 3 mg subcut FR@1000 Qty: 6 1RF lidocaine 5 % adhesive patch,medicated 1 patch topical DAILY PRN (Reason: painful muscle spasm) Qty: 30 1RF Rx Instructions: leave on most painful area for up to 12 hrs omeprazole 20 mg capsule,delayed release(DR/EC) 20 mg PO DAILY@0630 Qty: 30 2RF (DME) incontinence pad See Rx Instructions .Route .MEDSUPPLY Qty: 120 8RF Rx Instructions: As directed 4 times a day as needed ropinirole 0.5 mg tablet 0.5 mg PO BEDTIME Qty: 90 1RF gabapentin 400 mg capsule 400 mg PO TID 30 Days Qty: 90 4RF cholecalciferol (vitamin D3) 25 mcg (1,000 unit) tablet 25 mcg PO DAILY Qty: 90 1RF tizanidine 4 mg tablet 4 mg PO TID PRN (Reason: for muscle spasm) Qty: 30 0RF (DME) blood-glucose meter [FreeStyle Lite Meter] Kit See Rx Instructions .Route Qty: 1 0RF Rx Instructions: As directed (DME) FreeStyle Lite Strips Strip See Rx Instructions .Route Qty: 300 1RF Rx Instructions: test blood sugar 3 times per day (DME) lancets [FreeStyle Lancets] 28 gauge misc See Rx Instructions .Route Qty: 300 1RF Rx Instructions: test blood sugar 3 times per day famotidine 40 mg tablet 40 mg PO DAILY Qty: 30 6RF amitriptyline 50 mg Tablet 50 mg PO BEDTIME fluticasone propionate 50 mcg/actuation spray,suspension 1 spray intranasal DAILY PRN (Reason: Allergy Symptoms) osahytbkbe-frqjgjifwlrtr-bzxr [Fioricet] 50-300-40 mg capsule 1 cap PO Q8H PRN (Reason: migraine headae) Qty: 14 0RF olopatadine [Eye Allergy Itch-Redness Rlf] 0.1 % drops 1 drp ophthalmic (eye) BID 7 Days Qty: 5 0RF Rx Instructions: separate doses by at least 6-8 hours diphenhydramine HCl [Benadryl] 25 mg capsule 25 mg PO BEDTIME PRN (Reason: allergy symptoms) Qty: 20 0RF clonazepam 1 mg tablet 1 mg PO BID PRN (Reason: Anxiety) Myrbetriq 25 mg tablet extended release 24 hr 25 mg PO DAILY Qty: 30 0RF (DME) cane with quad tips See Rx Instructions .Route .MEDSUPPLY Qty: 1 0RF Rx Instructions: use as directed Salonpas(m.salicylate-menthol) 10-3 % adhesive patch,medicated 1 patch topical Q8-12H PRN (Reason: muscle pain) Qty: 20 1RF Rx Instructions: do not exceed 2 doses in a 24 hour period lidocaine [Lidoderm] 5 % adhesive patch,medicated 1 patch topical DAILY Qty: 15 1RF Rx Instructions: leave on most painful area for up to 12 hrs Tresiba FlexTouch U-100 100 unit/mL (3 mL) insulin pen 18 unit subcut BEDTIME 90 Days Qty: 30 4RF ondansetron 4 mg tablet,disintegrating 4 mg PO DAILY PRN (Reason: Nausea) Qty: 14 0RF fluconazole 150 mg tablet 150 mg PO Q3D PRN (Reason: vaginal itching) Qty: 2 0RF fluconazole [Diflucan] 150 mg tablet 150 mg PO Q3D 0 Days Qty: 2 0RF zolpidem 10 mg tablet 10 mg PO BEDTIME PRN (Reason: Insomnia) Citrucel 500 mg tablet 500 mg PO DAILY Qty: 90 3RF Rx Instructions: take it with full glass of water sennosides [senna] 8.6 mg tablet 8.6 mg PO BEDTIME topiramate 100 mg tablet 100 mg PO BID nortriptyline 25 mg capsule 25 mg PO BEDTIME docusate sodium 100 mg capsule 100 mg PO BID bisacodyl [Dulcolax (bisacodyl)] 5 mg tablet,delayed release (DR/EC) 10 mg PO BEDTIME Qty: 180 4RF Ref[place]: [facility] [place] [facility] [Provider Group] (Call to establish and follow up with an orthopedic provider. Llame para establecer y hacer un seguimiento con un proveedor ortop?dico.) Mali Nova MD [Primary Care Provider] - Interventions: ED Discharge Assessment Last Done: 02/18/23 09:33 Discharge Date/Time: 02/18/23 09:33 Print Language: Uzbek
== END 2023-02-18 09:33 | disposition home or self-care (01) ==
PROVIDERS: Emergency Provider Emergency Medicine Emergency Medical Services; PCP Internal Medicine
DX: S92.401A Displaced unspecified fracture of right great toe, initial encounter for closed fracture (principal); Y29.XXXA Contact with blunt object, undetermined intent, initial encounter; Y93.9 Activity, unspecified; Y92.9 Unspecified place or not applicable; Y99.9 Unspecified external cause status; Z79.899 Other long term (current) drug therapy; Z87.891 Personal history of nicotine dependence
CPT/HCPCS: 29515; 73620; 99283

== ENCOUNTER 2023-02-21 12:37 | Outpatient (AMB) | payer OTHER, SELFPAY ==
--- NOTE | 2023-02-21 12:39 | AM.OFFWIN_ITS ---
Intake Vital Signs 02/21/23 12:44 BP 108/70 Blood Pressure Location Rt brachial Position Sitting Pulse 99 Pulse Source Pulse Oximeter Pulse Oximetry (%) 98 Oxygen Delivery Method Room Air Intake Visit Reasons: EST/foot swelling Intake Note: Patient here because she went to the ED and was told she had a broken right big toe. She states she wasnt given any meds and is in a ton of pain and has been unable to sleep, pt states she has an appt with ortho on 03/08. Patient Tobacco Use Status: Former Tobacco user Quit Date: 1 year ago Allergies aspirin Allergy (Intermediate, Verified 02/21/23 12:44) rash latex [LATEX] Allergy (Mild, Verified 02/21/23 12:44) HIVES/RASH Penicillins Allergy (Mild, Verified 02/21/23 12:44) unknown amoxicillin Adverse Reaction (Intermediate, Verified 02/21/23 12:44) diarrhea Beef Containing Products Adverse Reaction (Intermediate, Verified 02/21/23 12:44) DIARRHEA/VOMITING [employer] Seafood Allergy (Intermediate, Uncoded 02/21/23 12:44) inflammation and swelling Do you need a note to return to daycare/school/sports/work: No HPI EST/foot swelling HPI Details 52-year-old female patient presents today with right great toe pain. She was seen in the emergency department at [facility] [place] on 02/18 following dropping a can on her toe. Radiology report for x-ray indicates no fracture, however emergency department physician felt that she had a small fracture of the distal phalanx of the great toe. She was provided a walking boot and referred to orthopedics. She returns today to the walk in c/o ongoing pain in that right great toe. She reports toe is extremely painful and throbbing. She is having difficulty with walking and even sleeping due to the pain. She has been taking 800mg Motrin TID and icing area without relief. She has an ortho appt. 03/08. [facility] Medical History Anxiety Arthritis B12 deficiency Candidiasis Controlled diabetes mellitus type II without complication COVID-19 vaccination declined Decreased hearing of right ear Depression with anxiety Diarrhea Dyslipidemia Fibromyalgia GERD (gastroesophageal reflux disease) Lower thoracic back pain Mild intermittent asthma Mixed stress and urge incontinence Non-toxic multinodular goiter Obesity (BMI 30-39.9) Pancreatic insufficiency Pelvic pain Restless leg syndrome Tinnitus of right ear Tubular adenoma Type 2 diabetes mellitus with microalbuminuria, with long-term current use of insulin Vertigo Surgical History H/O thyroidectomy History of esophagogastroduodenoscopy (EGD) Hx of appendectomy Hx of BSO (bilateral salpingo-oophorectomy) Hx of section Hx of cholecystectomy Hx of colonoscopy Hx of laparoscopy Family History Father Diabetes mellitus Heart murmur Mother Diabetes mellitus HTN (hypertension) Glaucoma Melanoma Social History Household Members: Family Housing: House Do you presently have visiting nurse or other home services: Yes Alcohol intake: never Patient Tobacco Use Status: Former Tobacco user Quit Date: 1 year ago Tobacco use type: Cigarette Cigarettes Per Day: 5 Years Smoked: 34 e-Cigarette/Vaping Use: Currently Using Advance Directives Date on File: 06/21/22 service: No Current occupational status: unemployed Sexual orientation: Straight/Heterosexual Gender identity: Female Cognitive needs: No Hearing needs: No Vision needs: No Review of Systems Const All systems reviewed & are unremarkable except as noted in HPI and below Physical Exam Vital Signs: Last Vital Signs Pulse 99 02/21/23 12:44 BP 108/70 02/21/23 12:44 Pulse Ox 98 02/21/23 12:44 Oxygen Delivery Method Room Air 02/21/23 12:44 Const General: cooperative and no acute distress Resp Effort & Inspection: normal respiratory effort and able to speak in complete sentences Auscultation: clear to auscultation bilaterally Cardio Jugular venous distension: no JVD Palpation: normal PMI Rate: regular rate Rhythm: regular rhythm Skin General skin exam: no rashes or lesions noted Extrem Other: right great toe with bruising at base of toenail and surrounding erythema. Very painful to touch. ROM limited due to pain. General: Yes capillary refill normal Psych Appearance: grossly normal Mental Status: mental status grossly normal Speech and movement: Normal speech and movement present Assessment & Plan Assessment & Plan (1) Pain of right great toe: Code(s): M79.674 - Pain in right toe(s) Plan: Patient is in significant pain s/p injury to right great toe several days ago. ED physician reported fracture at distal phalynx. I am going to provide patient with a short course of pain medication to utilize sparingly, only when conservative measures with ice, elevation, and Motrin do not provide any relief. We reviewed the indications, use, and possible side effects/risks of this medication. I encouraged her to f/u with PCP and also to keep 03/08 appt with orthopedics. If in the meantime she develops any worsening pain or symptoms, she should return to the clinic or the ED for further evaluation. She agrees to plan. Medications: New oxycodone Partial Fill upon patient request. 5 mg PO BID PRN 10 tabs 0RF pain 5 days M79.674 - Pain in right toe(s) Discontinued fluconazole Discontinued Reason: No Longer Medically Relevant 150 mg PO Q3D PRN 2 tabs 0RF vaginal itching 2 doses fluconazole (Diflucan) Discontinued Reason: No Longer Medically Relevant 150 mg PO Q3D 2 tabs 0RF 2 doses Coding Level of Care Code Est Pt Level 3 (71795) Diagnoses Pain of right great toe M79.674
[2023-02-21 12:44] VITALS: BP 108/70; PULSE 99; O2SAT 98
== END 2023-02-21 13:05 | disposition home or self-care (01) ==
PROVIDERS: PCP Internal Medicine; Visit Provider Nurse Practitioner Family
DX: M79.674 Pain in right toe(s) (principal)
CPT/HCPCS: 99213

== ENCOUNTER 2023-03-08 09:01 | Outpatient (AMB) | payer OTHER, SELFPAY ==
--- NOTE | 2023-03-08 09:48 | MHC.OFFVIS ---
Intake Vital Signs 03/08/23 09:51 Height 5 ft 4 in Weight 179 lb BMI 30.7 Intake Visit Reasons: New Pt - right great toe pain, DOI 02/17/23 Intake Note: Demi is a 52 year old female who presents today as a new patient for a evaluation for her right great toe pain, DOI 03/20/23. Patient reports dropping a can onto her right great toe. She states her nail look black and she is also diabetic. Patient reports mild pain when applies full weight. Allergies aspirin Allergy (Intermediate, Verified 03/08/23 09:51) rash latex [LATEX] Allergy (Mild, Verified 03/08/23 09:51) HIVES/RASH Penicillins Allergy (Mild, Verified 03/08/23 09:51) unknown amoxicillin Adverse Reaction (Intermediate, Verified 03/08/23 09:51) diarrhea Beef Containing Products Adverse Reaction (Intermediate, Verified 03/08/23 09:51) DIARRHEA/VOMITING [employer] Allergy (Intermediate, Uncoded 02/21/23 12:44) inflammation and swelling HPI New Pt - right great toe pain, DOI 02/17/23 HPI Details 52-year-old female, who is Syriac speaking, presents in the office today, as a new patient, for an evaluation of right great toe pain. The patient presented to the ED on 02/18/2023 where she reports dropping a can on the right great toe; on 02/17/2023. X-rays of the right foot were obtained. She was placed in a walking boot and referred to orthopedics. She [facility]2023 with increased right great toe pain. At this time she was given a prescription of Oxycodone 5 mg PO BID PRN. The patient reports in the office her right great toe nail is black. She states she has mild pain when applying full weight on the right lower extremity. Patient confirms a medical history of diabetes mellitus. [facility] Medical History Anxiety Arthritis B12 deficiency Candidiasis Controlled diabetes mellitus type II without complication COVID-19 vaccination declined Decreased hearing of right ear Depression with anxiety Diarrhea Dyslipidemia Fibromyalgia GERD (gastroesophageal reflux disease) Lower thoracic back pain Mild intermittent asthma Mixed stress and urge incontinence Non-toxic multinodular goiter Obesity (BMI 30-39.9) Pancreatic insufficiency Pelvic pain Restless leg syndrome Tinnitus of right ear Tubular adenoma Type 2 diabetes mellitus with microalbuminuria, with long-term current use of insulin Vertigo Surgical History H/O thyroidectomy History of esophagogastroduodenoscopy (EGD) Hx of appendectomy Hx of BSO (bilateral salpingo-oophorectomy) Hx of section Hx of cholecystectomy Hx of colonoscopy Hx of laparoscopy Family History Father Diabetes mellitus Heart murmur Mother Diabetes mellitus HTN (hypertension) Glaucoma Melanoma Social History Household Members: Family Housing: House Do you presently have visiting nurse or other home services: Yes Alcohol intake: never Patient Tobacco Use Status: Former Tobacco user Quit Date: 1 year ago Tobacco use type: Cigarette Cigarettes Per Day: 5 Years Smoked: 34 e-Cigarette/Vaping Use: Currently Using Advance Directives Date on File: 06/21/22 service: No Current occupational status: unemployed Sexual orientation: Straight/Heterosexual Gender identity: Female Cognitive needs: No Hearing needs: No Vision needs: No Review of Systems Const All systems reviewed & are unremarkable except as noted in HPI and below Physical Exam Vital Signs: BMI result Body Mass Index 30.7 Const General: cooperative and no acute distress Orientation/consciousness: patient oriented x3 Resp Effort & Inspection: normal respiratory effort and able to speak in complete sentences Cardio Peripheral pulses: Peripheral pulses 2+ throughout Skin General skin exam: no rashes or lesions noted Neuro General: patient oriented x3 Extrem Other: Right great toe: Subungual hematoma with some separation from nail bed. Tenderness to palpation surrounding the nail bed. Able to flex and extend at the IP joint. Sensation intact. Assessment & Plan Assessment & Plan (1) Subungual contusion of toe of right foot: Comment: Right great toe Code(s): S90.221A - Contusion of right lesser toe(s) with damage to nail, initial encounter Plan Ms. Carlos Trimble is a 52-year-old female, who is Syriac speaking, presents in the office today, as a new patient, for an evaluation of right great toe pain. The patient presented to the ED on 02/18/2023 where she reports dropping a can on the right great toe; on 02/17/2023. X-rays of the right foot were obtained. She was placed in a walking boot and referred to orthopedics. She [facility] 02/[facility]2023 with increased right great toe pain. At this time she was given a prescription of Oxycodone 5 mg PO BID PRN. The patient reports in the office her right great toe nail is black. She states she has mild pain when applying full weight on the right lower extremity. Patient confirms a medical history of diabetes mellitus. The patient will be referred to Podiatry for further evaluation and treatment of the right great toe due to the patient having diabetes mellitus. They can further manage her subungual hematoma as well. Follow up with Orthopedics will be PRN, or sooner if needed. X-rays of the right foot, obtained on 02/18/2023, revealed: 1. Mild dorsal soft tissue swelling without acute underlying osseous abnormality. 2. Very small degenerative retrocalcaneal spur. Orders: Referrals Podiatry Referral E11.9 - Type 2 diabetes mellitus without complications, S90.221A - Contusion of right lesser toe(s) with damage to nail, initial encounter Patient Instructions: Scribed for Leisa Landers PA-C by Ginger Jerome medical clerical assistant, on 03/08/2023 at 9:07 am, EST. Coding Level of Care Code New Pt Level 4 (89250) Diagnoses Subungual contusion of toe of right foot S90.221A
[2023-03-08 09:51] VITALS: BMI 30.7
== END 2023-03-08 09:57 | disposition home or self-care (01) ==
PROVIDERS: PCP Internal Medicine; Visit Provider Physician Assistant
DX: S90.211A Contusion of right great toe with damage to nail, initial encounter (principal)
CPT/HCPCS: 99203

== ENCOUNTER → 2023-03-08 09:01 | Outpatient (BNVA) | payer OTHER, SELFPAY | PROVIDERS: PCP Internal Medicine; Visit Provider Physician Assistant ==

== ENCOUNTER 2023-03-12 18:22 | Emergency (ER) | payer OTHER, SELFPAY ==
--- NOTE | 2023-03-12 18:26 | ED.BACK ---
HPI - Back Pain/Injury General Chief Complaint: Back Pain/Injury Stated Complaint: back pain Time Seen by Provider: 03/12/23 19:53 Source: patient, RN notes reviewed, old records reviewed and cash manager Mode of arrival: ambulatory Limitations: language barrier History of Present Illness HPI Narrative: 52-year-old female with past medical history significant for diabetes, fibromyalgia, pancreatic insufficiency, GERD, obesity presents for evaluation of back pain. Patient reports her symptoms started yesterday. Her pain goes down her entire left back. Next the pain radiates into her leg. She also complains of some urinary frequency Patient reports a history of kidney stones She reports that 2 weeks ago she was prescribed 2 medications for ?vaginal itching. ? Denies any fevers or chills Her pain does not radiate to her abdomen Related Data Home Medications Medication Instructions Recorded Confirmed clonazepam 1 mg tablet 1 mg PO BID PRN Anxiety 04/28/20 06/05/22 zolpidem 10 mg tablet 10 mg PO BEDTIME PRN Insomnia 07/20/21 06/05/22 amitriptyline 50 mg tablet 50 mg PO BEDTIME 06/05/22 06/05/22 fluticasone propionate 50 1 spray intranasal DAILY PRN 06/05/22 06/05/22 mcg/actuation nasal Allergy Symptoms spray,suspension docusate sodium 100 mg capsule 100 mg PO BID 09/15/22 nortriptyline 25 mg capsule 25 mg PO BEDTIME 09/15/22 sennosides 8.6 mg tablet (senna) 8.6 mg PO BEDTIME constipation 09/15/22 topiramate 100 mg tablet 100 mg PO BID 09/15/22 Previous Rx's Medication Instructions Recorded mirabegron 25 mg tablet,extended 25 mg PO DAILY #30 tabs 10/06/20 release 24 hr (Myrbetriq) cane with quad tips #1 ea 01/28/21 methylcellulose (laxative) 500 mg 500 mg PO DAILY #90 tabs 05/05/22 tablet (Citrucel) pen needle, diabetic 32 gauge x #100 ea 05/17/22 (BD Vanessa 2nd Gen Pen Needle) mjtfiizjkh-ukhzpbxpadbjo-olsjejir 1 cap PO Q8H PRN migraine headae 06/07/22 50 mg-300 mg-40 mg capsule #14 caps (Fioricet) insulin degludec 100 unit/mL (3 18 unit (0.18 mL) subcut BEDTIME 06/21/22 mL) subcutaneous pen (Tresiba 90 days #30 mL FlexTouch U-100 insulin) ondansetron 4 mg disintegrating 4 mg PO DAILY PRN Nausea #14 tabs 06/21/22 tablet albuterol sulfate 90 mcg/actuation 2 puff inhalation Q6H PRN 06/25/22 aerosol inhaler (ProAir HFA) shortness of breath or wheezing #18 grams meclizine 12.5 mg tablet 12.5 mg PO DAILY PRN dizziness #20 06/25/22 tabs albuterol sulfate 2.5 mg/3 mL 2.5 mg (3 mL) inhalation QID PRN 06/30/22 (0.083 %) solution for nebulization shortness of breath or wheezing #75 mL lidocaine 5 % topical patch 1 patch topical DAILY #15 ea 08/23/22 (Lidoderm) cetirizine 10 mg tablet 10 mg PO DAILY #90 tabs 09/03/22 duloxetine 30 mg capsule,delayed 30 mg PO BID #180 caps 09/03/22 release fluticasone 250 mcg-salmeterol 50 1 inh inhalation BID #180 ea 09/03/22 mcg/dose blistr powdr for inhalation (Advair Diskus) bisacodyl 5 mg tablet,delayed 10 mg PO BEDTIME #180 tabs 09/15/22 release (Dulcolax (bisacodyl)) cholestyramine-aspartame 4 gram 4 g PO BID #231 grams 09/21/22 oral powder (Cholestyramine Light) ezetimibe 10 mg tablet 10 mg PO BEDTIME #90 tabs 10/06/22 dulaglutide 3 mg/0.5 mL 3 mg (0.5 mL) subcut FR@1000 #6 mL 11/05/22 subcutaneous pen injector (Trulicity) lidocaine 5 % topical patch 1 patch topical DAILY PRN painful 11/15/22 muscle spasm #30 ea methyl salicylate 10 %-menthol 3 % 1 patch topical Q8-12H PRN muscle 11/15/22 topical patch (Salonpas (methyl pain #20 ea salicylate-menthol)) diphenhydramine HCl 25 mg capsule 25 mg PO BEDTIME PRN allergy 11/20/22 (Benadryl) symptoms #20 caps olopatadine 0.1 % eye drops (Eye 1 drp ophthalmic (eye) BID 7 days 11/20/22 Allergy Itch-Redness Relief) #5 mL omeprazole 20 mg capsule,delayed 20 mg PO DAILY@0630 gerd #30 caps 11/24/22 release incontinence pad #120 ea 12/23/22 ropinirole 0.5 mg tablet 0.5 mg PO BEDTIME #90 caps 12/28/22 cholecalciferol (vitamin D3) 25 25 mcg PO DAILY #90 tabs 01/05/23 mcg (1,000 unit) tablet gabapentin 400 mg capsule 400 mg PO TID 30 days #90 caps 01/05/23 blood sugar diagnostic (FreeStyle #300 ea 02/14/23 Lite Strips) blood-glucose meter (FreeStyle #1 ea 02/14/23 Lite Meter kit) lancets 28 gauge (FreeStyle #300 ea 02/14/23 Lancets) famotidine 40 mg tablet 40 mg PO DAILY #30 tabs 02/16/23 oxycodone 5 mg tablet 5 mg PO BID PRN pain 5 days #10 02/21/23 tabs metformin 750 mg tablet,extended 750 mg PO BID 90 days #180 tabs 03/04/23 release 24 hr tizanidine 4 mg tablet 4 mg PO TID PRN for muscle spasm 03/04/23 #30 tabs cefdinir 300 mg capsule 300 mg PO BID #10 caps 03/12/23 Allergies Allergy/AdvReac Type Severity Reaction Status Date / Time aspirin Allergy Intermediate rash Verified 03/08/23 09:51 latex [LATEX] Allergy Mild HIVES/RASH Verified 03/08/23 09:51 Penicillins Allergy Mild unknown Verified 03/08/23 09:51 amoxicillin AdvReac Intermediate diarrhea Verified 03/08/23 09:51 Beef Containing Products AdvReac Intermediate DIARRHEA/VO Verified 03/08/23 09:51 MITING [employer] Allergy Intermediate inflammation Uncoded 02/21/23 12:44 and swelling Review of Systems Constitutional: Constitutional: Denies chills, Denies fever(s) and Denies headache(s) ENT: Denies headache(s) Cardiovascular: Cardiovascular: Denies chest pain and Denies dyspnea Respiratory: Respiratory: Denies cough and Denies dyspnea Gastrointestinal: Gastrointestinal: Denies abdominal pain, Denies nausea and Denies vomiting Genitourinary: Genitourinary: Reports dysuria and Reports urinary urgency Musculoskeletal: Musculoskeletal: Reports back pain Integumentary/Breasts: Skin/Breast: Denies rash Neurologic: Denies headache(s) REPLACED BY [facility] Past Medical History Medical History Anxiety Arthritis B12 deficiency Candidiasis Controlled diabetes mellitus type II without complication COVID-19 vaccination declined Decreased hearing of right ear Depression with anxiety Diarrhea Dyslipidemia Fibromyalgia GERD (gastroesophageal reflux disease) Lower thoracic back pain Mild intermittent asthma Mixed stress and urge incontinence Non-toxic multinodular goiter Obesity (BMI 30-39.9) Pancreatic insufficiency Pelvic pain Restless leg syndrome Tinnitus of right ear Tubular adenoma Type 2 diabetes mellitus with microalbuminuria, with long-term current use of insulin Vertigo Surgical History H/O thyroidectomy History of esophagogastroduodenoscopy (EGD) Hx of appendectomy Hx of BSO (bilateral salpingo-oophorectomy) Hx of section Hx of cholecystectomy Hx of colonoscopy Hx of laparoscopy Family History Family History Father Diabetes mellitus Heart murmur Mother Diabetes mellitus HTN (hypertension) Glaucoma Melanoma Social History Social History Household Members: Family Housing: House Do you presently have visiting nurse or other home services: Yes Alcohol intake: never Patient Tobacco Use Status: Former Tobacco user Quit Date: 1 year ago Tobacco use type: Cigarette Cigarettes Per Day: 5 Years Smoked: 34 e-Cigarette/Vaping Use: Currently Using Advance Directives: Yes Advance Directives on File: Yes Advance Directives Date on File: 06/21/22 service: No Current occupational status: unemployed Sexual orientation: Straight/Heterosexual Gender identity: Female Cognitive needs: No Hearing needs: No Vision needs: No Physical Exam Vital Signs: Vital Signs: Last Vital Signs Temp 98.0 F 03/12/23 18:27 Pulse 104 H 03/12/23 18:27 Resp 18 03/12/23 18:27 BP 127/78 03/12/23 18:27 Pulse Ox 97 03/12/23 18:27 O2 Del Method Room Air 03/12/23 18:27 BMI result Body Mass Index 30.8 Const: General: healthy appearing, comfortable, no acute distress, alert and awake Nutritional Appearance: well nourished Orientation/consciousness: patient oriented x3 HEENT: Head: Yes normocephalic and Yes atraumatic Eyes: Eyelids: Yes eyelids normal Conjunctivae: conjunctivae normal Sclerae: sclerae normal Corneas: corneas normal Pupils: Equal, round and reactive pupils present EOM: EOMs intact bilaterally Resp: Effort & Inspection: normal respiratory effort, able to speak in complete sentences and not labored Cardio: Rate: regular rate Rhythm: regular rhythm GI: Inspection: No distended Palpation (GI): Soft to palpation, not firm, nontender, no guarding and not rigid Back/Spine/Pelvis: Other: Patient has tenderness to light palpation of the entire left back. No vertebral tenderness. No true CVA tenderness. Skin: General skin exam: no rashes or lesions noted and elasticity normal Neuro: General: patient oriented x3 Cranial nerves: Yes Equal, round and reactive pupils present and Yes Bilaterally intact EOM present Cognition (Neuro): normal cognition Course Course Course Narrative: This is a rapid medical exam. Deferred additional HPI, ROS, PE to primary provider. 52-year-old female with a past medical history of allergic rhinitis, anxiety, arthritis, asthma, B12 deficiency anxiety and depression, diabetes, dyslipidemia, fibromyalgia, GERD, asthma, incontinence, nontoxic multinodular goiter, obesity, pancreatic insufficiency, restless leg syndrome and vertigo?here with left sided back pain with radiation to lower back and down left leg since yesterday with dysuria. Does not have uterus, does not get menses Will check UA VSS Medical Decision Making Medical Decision Making MDM Narrative: 52-year-old female presents for evaluation of back pain and urinary discomfort. Her back pain is very reproducible on exam. She has no neuro deficits. Less likely cauda equina syndrome. The patient's UA does have bacteria, white cells and red cells. Most likely be UTI, less likely to be obstructive uropathy. The patient appears quite comfortable. Discussed possible CT imaging of the patient, however this was ultimately deferred. She will return if her symptoms worsen or do not improve. Patient is afebrile, I do not feel that she has to pyelonephritis either. Differential Diagnosis Differential Diagnoses: The differential diagnosis associated with the presentation includes Back pain Obstructive uropathy UTI Pyelonephritis Lab Data MDM Lab Attestation statement: I reviewed the patient's lab results. Patient has trace leukocyte esterase, 3-5 red cells, 11-20 white cells and 1+ bacteria. Given that she is symptomatic we will treat as a UTI Labs: Lab Results 03/12/23 Range/Units 18:37 Urine Color Yellow Urine Appearance Cloudy Urine pH 5.5 (5.0-9.0) Ur Specific [place] 1.020 (1.005-1.025) Urine Protein Negative (Neg-Trace) mg/dL Urine Glucose (UA) Negative (Negative) mg/dL Urine Ketones Trace (Negative) mg/dL Urine Blood Negative (Negative) Urine Nitrite Negative (Negative) Ur Leukocyte Esterase Trace H (Negative) Urine RBC 3-5 H (0-2) /HPF Urine WBC 11-20 H (0-5) /HPF Ur Squamous Epith Cells 11-20 (0-2) /HPF Urine Bacteria 1+ (None Seen) Hyaline Casts 0-2 (0-2) /LPF Discharge Plan Discharge Clinical Impression: Urinary tract infection, Back pain Patient Disposition: Home, Self-Care Instructions: Urinary Tract Infection in Women (ED) Additional Instructions: Your urine did show signs of a urinary tract infection which is likely explaining her symptoms. I do not think that you have kidney stones at this time Your back pain is most likely musculoskeletal and not related to the urine infection If your symptoms do not improve after finishing the antibiotics or worsen, he may return for further evaluation and management Follow-up with her primary doctor Prescriptions: New cefdinir 300 mg capsule 300 mg PO BID Qty: 10 0RF No Action (DME) pen needle, diabetic [BD Vanessa 2nd Gen Pen Needle] 32 gauge x 5/32 needle See Rx Instructions .Route Qty: 100 3RF Rx Instructions: Use to inject insulin once a day albuterol sulfate [ProAir HFA] 90 mcg/actuation HFA aerosol inhaler 2 puff inhalation Q6H PRN (Reason: shortness of breath or wheezing) Qty: 18 5RF meclizine 12.5 mg tablet 12.5 mg PO DAILY PRN (Reason: dizziness) Qty: 20 1RF albuterol sulfate 2.5 mg /3 mL (0.083 %) solution for nebulization 2.5 mg inhalation QID PRN (Reason: shortness of breath or wheezing) Qty: 75 0RF fluticasone propion-salmeterol [Advair Diskus] 250-50 mcg/dose blister with device 1 inh inhalation BID Qty: 180 3RF duloxetine 30 mg capsule,delayed release(DR/EC) 30 mg PO BID Qty: 180 3RF cetirizine 10 mg tablet 10 mg PO DAILY Qty: 90 3RF Cholestyramine Light 4 gram powder 4 g PO BID Qty: 231 3RF Rx Instructions: administer w/meal; avoid other meds within 1hr before or 4-6hr after dose ezetimibe 10 mg tablet 10 mg PO BEDTIME Qty: 90 3RF Trulicity 3 mg/0.5 mL pen injector 3 mg subcut FR@1000 Qty: 6 1RF lidocaine 5 % adhesive patch,medicated 1 patch topical DAILY PRN (Reason: painful muscle spasm) Qty: 30 1RF Rx Instructions: leave on most painful area for up to 12 hrs omeprazole 20 mg capsule,delayed release(DR/EC) 20 mg PO DAILY@0630 Qty: 30 2RF (DME) incontinence pad See Rx Instructions .Route .MEDSUPPLY Qty: 120 8RF Rx Instructions: As directed 4 times a day as needed ropinirole 0.5 mg tablet 0.5 mg PO BEDTIME Qty: 90 1RF gabapentin 400 mg capsule 400 mg PO TID 30 Days Qty: 90 4RF cholecalciferol (vitamin D3) 25 mcg (1,000 unit) tablet 25 mcg PO DAILY Qty: 90 1RF (DME) blood-glucose meter [FreeStyle Lite Meter] Kit See Rx Instructions .Route Qty: 1 0RF Rx Instructions: As directed (DME) FreeStyle Lite Strips Strip See Rx Instructions .Route Qty: 300 1RF Rx Instructions: test blood sugar 3 times per day (DME) lancets [FreeStyle Lancets] 28 gauge misc See Rx Instructions .Route Qty: 300 1RF Rx Instructions: test blood sugar 3 times per day famotidine 40 mg tablet 40 mg PO DAILY Qty: 30 6RF tizanidine 4 mg tablet 4 mg PO TID PRN (Reason: for muscle spasm) Qty: 30 0RF metformin 750 mg tablet extended release 24 hr 750 mg PO BID 90 Days Qty: 180 1RF amitriptyline 50 mg Tablet 50 mg PO BEDTIME fluticasone propionate 50 mcg/actuation spray,suspension 1 spray intranasal DAILY PRN (Reason: Allergy Symptoms) asmlapwehd-zoeljcdobzswn-ldzk [Fioricet] 50-300-40 mg capsule 1 cap PO Q8H PRN (Reason: migraine headae) Qty: 14 0RF olopatadine [Eye Allergy Itch-Redness Rlf] 0.1 % drops 1 drp ophthalmic (eye) BID 7 Days Qty: 5 0RF Rx Instructions: separate doses by at least 6-8 hours diphenhydramine HCl [Benadryl] 25 mg capsule 25 mg PO BEDTIME PRN (Reason: allergy symptoms) Qty: 20 0RF clonazepam 1 mg tablet 1 mg PO BID PRN (Reason: Anxiety) Myrbetriq 25 mg tablet extended release 24 hr 25 mg PO DAILY Qty: 30 0RF (DME) cane with quad tips See Rx Instructions .Route .MEDSUPPLY Qty: 1 0RF Rx Instructions: use as directed Salonpas(m.salicylate-menthol) 10-3 % adhesive patch,medicated 1 patch topical Q8-12H PRN (Reason: muscle pain) Qty: 20 1RF Rx Instructions: do not exceed 2 doses in a 24 hour period lidocaine [Lidoderm] 5 % adhesive patch,medicated 1 patch topical DAILY Qty: 15 1RF Rx Instructions: leave on most painful area for up to 12 hrs oxycodone 5 mg tablet 5 mg PO BID PRN (Reason: pain) 5 Days Qty: 10 0RF Rx Instructions: Partial Fill upon patient request. Tresiba FlexTouch U-100 100 unit/mL (3 mL) insulin pen 18 unit subcut BEDTIME 90 Days Qty: 30 4RF ondansetron 4 mg tablet,disintegrating 4 mg PO DAILY PRN (Reason: Nausea) Qty: 14 0RF zolpidem 10 mg tablet 10 mg PO BEDTIME PRN (Reason: Insomnia) Citrucel 500 mg tablet 500 mg PO DAILY Qty: 90 3RF Rx Instructions: take it with full glass of water sennosides [senna] 8.6 mg tablet 8.6 mg PO BEDTIME topiramate 100 mg tablet 100 mg PO BID nortriptyline 25 mg capsule 25 mg PO BEDTIME docusate sodium 100 mg capsule 100 mg PO BID bisacodyl [Dulcolax (bisacodyl)] 5 mg tablet,delayed release (DR/EC) 10 mg PO BEDTIME Qty: 180 4RF
[2023-03-12 18:27] VITALS: BP 127/78; PULSE 104; RESP 18; TEMP 36.7; O2SAT 97; BMI 30.8
[2023-03-12 18:43] LABS: Appearance Urine Cloudy; Color Urine Yellow; Glucose Urine UA Negative (Negative); Leukocyte Esterase Urine Trace (Negative); Nitrite Urine Negative (Negative); PH 5.5 (5.0-9.0); UMIC TRIGGER UACC YES; Urine Blood Negative (Negative); Urine Ketones Trace mg/dL (Negative); Urine Protein Negative (Neg-Trace)
[2023-03-12 18:45] LABS: Bacteria Urine 1+ (None Seen); Hyaline Casts Urine 0-2 /LPF (0-2); UACC Culture Trigger YES
== END 2023-03-12 20:18 | disposition home or self-care (01) ==
PROVIDERS: Nurse Practitioner Family; Emergency Provider Emergency Medicine; PCP Internal Medicine
DX: M54.9 Dorsalgia, unspecified (principal); N39.0 Urinary tract infection, site not specified; F17.210 Nicotine dependence, cigarettes, uncomplicated
CPT/HCPCS: 81001; 87086; 99282; 99283

== ENCOUNTER 2023-03-17 13:36 | Outpatient (AMB) | payer OTHER, SELFPAY ==
--- NOTE | 2023-03-17 13:42 | AM.OFFWIN_ITS ---
Intake Vital Signs 03/17/23 13:45 Weight 79.379 kg BP 120/80 Blood Pressure Location Rt brachial Position Sitting Pulse 94 Pulse Source Pulse Oximeter Pulse Oximetry (%) 97 Oxygen Delivery Method Room Air Oxygen Flow Rate 97.8 Intake Visit Reasons: EP, UTI? Intake Note: Patient here because she has been dealing with pain when urinating, and itchy. she did go to ED and was advised that she had a bacterial infection which she was given antibiotics and has finished them but she is still experiencing back pain, lower abdomen pain. Patient Tobacco Use Status: Former Tobacco user Quit Date: 1 year ago Allergies aspirin Allergy (Intermediate, Verified 03/17/23 13:50) rash latex [LATEX] Allergy (Mild, Verified 03/17/23 13:50) HIVES/RASH Penicillins Allergy (Mild, Verified 03/17/23 13:50) unknown amoxicillin Adverse Reaction (Intermediate, Verified 03/17/23 13:50) diarrhea Beef Containing Products Adverse Reaction (Intermediate, Verified 03/17/23 13:50) DIARRHEA/VOMITING [employer] Allergy (Intermediate, Uncoded 03/17/23 13:50) inflammation and swelling Do you need a note to return to daycare/school/sports/work: No HPI HPI Comments History of Present Illness Details 1415 52-year-old female presents for evaluation of worsening left flank pain, urinary frequency, dysuria, worsening despite recent antibiotic, patient reports she was seen on 03/12/2023 in the emergency department and was told she had a UTI, patient was prescribed cefdinir 300 mg p.o. b.i.d. times 10 days and despite this pain has been worsening. Patient reports that pain is intermittent, stabbing in nature to the left flank region and goes down and wraps around her abdomen down to her bladder region. Patient reports subjective chills. No fevers. Denies nausea, vomiting, headache, vision changes, dizziness weakness Significant left-sided CVA tenderness History and physical exam raise suspicion for obstructing uropathy versus pyelonephritis . Urine clean however which is abnormal for atypical presentation of pyelonephritis. Other differentials include cystitis or musculoskeletal pain. Patient has not yet had imaging. Advice to go to the emergency department for further evaluation and treatment [facility] Medical History Anxiety Arthritis B12 deficiency Candidiasis Controlled diabetes mellitus type II without complication COVID-19 vaccination declined Decreased hearing of right ear Depression with anxiety Diarrhea Dyslipidemia Fibromyalgia GERD (gastroesophageal reflux disease) Lower thoracic back pain Mild intermittent asthma Mixed stress and urge incontinence Non-toxic multinodular goiter Obesity (BMI 30-39.9) Pancreatic insufficiency Pelvic pain Restless leg syndrome Tinnitus of right ear Tubular adenoma Type 2 diabetes mellitus with microalbuminuria, with long-term current use of insulin Vertigo Surgical History H/O thyroidectomy History of esophagogastroduodenoscopy (EGD) Hx of appendectomy Hx of BSO (bilateral salpingo-oophorectomy) Hx of section Hx of cholecystectomy Hx of colonoscopy Hx of laparoscopy Family History Father Diabetes mellitus Heart murmur Mother Diabetes mellitus HTN (hypertension) Glaucoma Melanoma Social History Household Members: Family Housing: House Do you presently have visiting nurse or other home services: Yes Alcohol intake: never Patient Tobacco Use Status: Former Tobacco user Quit Date: 1 year ago Tobacco use type: Cigarette Cigarettes Per Day: 5 Years Smoked: 34 e-Cigarette/Vaping Use: Currently Using Advance Directives Date on File: 06/21/22 service: No Current occupational status: unemployed Sexual orientation: Straight/Heterosexual Gender identity: Female Cognitive needs: No Hearing needs: No Vision needs: No Review of Systems Const Details: Constitutional : No Weight loss, No Fever, No Chills, No Fatigue, No Malaise ENT/Mouth : No sore throat, No Rhinorrhea Eyes: No Eye Pain, No Swelling, No Redness Cardiovascular : No Chest Pain, No SOB, No Dyspnea on Exertion, No Orthopnea, No Edema, No Palpitations Respiratory : No Cough, No Sputum, No Wheezing Gastrointestinal : No Nausea, No Vomiting, No Diarrhea, No Constipation, No abdominal Pain, No Hematochezia, No Melena Genitourinary : No Dysuria, No Urinary Frequency, No Hematuria, Musculoskeletal : No joint pain, No Myalgias, No Joint Swelling, + flank pain Skin : No Skin Lesions, No rash Neuro : No Weakness, No Numbness, No Dizziness, No Headache Psych : No Anxiety/Panic, No Depression All other systems reviewed and are negative All systems reviewed & are unremarkable except as noted in HPI and below Physical Exam Vital Signs: Last Vital Signs Pulse 94 03/17/23 13:45 BP 120/80 03/17/23 13:45 Pulse Ox 97 03/17/23 13:45 Oxygen Delivery Method Room Air 03/17/23 13:45 Oxygen Flow Rate 97.8 03/17/23 13:45 vss Appearance: Alert.? Oriented X3.? No acute distress.? Head: Normocephalic, atraumatic, no step-offs or deformities Eyes: Pupils equal, round and reactive to light.? CVS: Normal heart rate and rhythm.? Pulses normal.? Respiratory: No respiratory distress.? Breath sounds normal.? Abdomen: Soft and nontender.? Skin: Skin warm and dry.? Normal skin color.? Normal skin turgor.? Extremities: No lower extremity edema.? No calf ttp. 5/5 strength to bilateral upper and lower extremities Back: + L sided cva tenderness Neuro: Oriented X 3.? No motor deficit.? No sensory deficit. CN 2-12 intact Results AMB Urinalysis, Automated UA Leukoctes 0 John/uL Last Edit by Erma Waters CCM on 03/17/23 14:02 UA Nitrite Negative Last Edit by Erma Waters [facility] on 03/17/23 14:02 UA Urobilinogen 0.2 mg/dL Last Edit by Erma Waters CCM on 03/17/23 14:02 UA Protein 0 mg/dL Last Edit by Erma Waters [facility] on 03/17/23 14:02 UA pH 5.5 Last Edit by Erma Waters [facility] on 03/17/23 14:02 UA Blood 0 Jian/uL Last Edit by Erma Waters CCM on 03/17/23 14:02 UA Specific [place] 1.030 Last Edit by Erma Waters CCM on 03/17/23 14:02 UA Ketone Negative Last Edit by Erma Waters CCM on 03/17/23 14:02 UA Bilirubin 1 mg/dL Last Edit by SALVATORE Lewis on 03/17/23 14:02 UA Glucose 0 mg/dL Last Edit by SALVATORE Lewis on 03/17/23 14:02 Results Reviewed Results Reviewed: Laboratory Last Values Urine pH (Auto) 5.5 03/17/23 14:00 Specific [place] (Auto) 1.030 03/17/23 14:00 Urine Protein (Auto) 0 mg/dL 03/17/23 14:00 Glucose (UA)(Auto) 0 mg/dL 03/17/23 14:00 Urine Ketones (Auto) Negative 03/17/23 14:00 Urine Blood (Auto) 0 Jian/uL 03/17/23 14:00 Urine Nitrite (Auto) Negative 03/17/23 14:00 Urine Bilirubin (Auto) 1 mg/dL 03/17/23 14:00 Urine Urobilinogen (Auto) 0.2 mg/dL 03/17/23 14:00 Leukocyte Esterase (Auto) 0 John/uL 03/17/23 14:00 Assessment & Plan Assessment & Plan (1) Left flank pain: Code(s): R10.9 - Unspecified abdominal pain Plan Take your medications as prescribed. If you were prescribed antibiotics today, it is important that you take your medication to their entirety, do not skip any doses, do not finish them early. Follow-up with your primary care provider this week. Return to the emergency department with new or worsening symptoms. Such as fevers, chills, chest pain, shortness of breath, nausea, vomiting, dizziness, headache, vision changes, lethargy In case of emergency call 911 Orders: Orders AMB Urinalysis Automated Today Z13.9 - Encounter for screening, unspecified Coding Level of Care Code Est Pt Level 3 (77776) Diagnoses Left flank pain R10.9
[2023-03-17 13:45] VITALS: BP 120/80; PULSE 94; O2SAT 97
== END 2023-03-17 14:36 | disposition home or self-care (01) ==
PROVIDERS: PCP Internal Medicine; Visit Provider Physician Assistant
DX: R30.0 Dysuria (principal); R10.9 Unspecified abdominal pain
CPT/HCPCS: 81003; 99213

== ENCOUNTER 2023-03-17 14:38 | Emergency (ER) | payer OTHER, SELFPAY ==
--- NOTE | ~2023-03-17 | CT_ITS ---
EXAMINATION: CT ABDOMEN AND PELVIS WITHOUT CONTRAST CLINICAL INFORMATION: Left flank pain. COMPARISON: None available. TECHNIQUE: Multidetector volumetric imaging was performed from the superior aspect of the liver through the pubic symphysis. Sagittal and coronal reformatted images were obtained on the technologist's workstation. This CT examination was performed using dose optimization techniques as appropriate, variously including the following: *Automated exposure control *Adjustment of mA and/or kV according to patient size (this includes techniques or standardized protocols for targeted exams where dose is matched to indication/reason for exam; i.e. extremities or head) *Use of iterative reconstruction technique DLP: 525 mGy-cm FINDINGS: LUNG BASES: The visualized lung bases are unremarkable. LIVER, GALLBLADDER, AND BILIARY TREE: The liver is normal in size, shape, and attenuation. No focal hepatic lesion or biliary ductal dilatation is present. There has been a prior cholecystectomy. PANCREAS: Unremarkable. SPLEEN: Unremarkable. ADRENAL GLANDS: There is mild adrenal gland thickening. KIDNEYS AND URETERS: The kidneys are normal in size, shape, and attenuation. No hydronephrosis, hydroureter, or calculi seen. No perinephric stranding. BLADDER: Unremarkable. GASTROINTESTINAL TRACT: There are diverticula of the descending colon without diverticulitis. The appendix is not identified. ABDOMINAL WALL: No significant hernia is appreciated. LYMPH NODES: Normal. VASCULAR: Unremarkable. PELVIC VISCERA: There are small partially calcific uterine fibroids. OSSEOUS STRUCTURES: Unremarkable. CT/CT abdomen pelvis wo IV con IMPRESSION: No renal calculi or renal collecting system obstructive change. Fibroid uterus. Diverticula of the descending colon without diverticulitis. No acute intra-abdominal process. Fleischner guidelines were followed.
--- NOTE | ~2023-03-17 | XR_ITS ---
EXAMINATION: XR CHEST 2 VIEW CLINICAL INFORMATION: Chest COMPARISON: 06/05/2022 TECHNIQUE: PA and lateral views of the chest obtained. FINDINGS: The lungs are clear. There are no pleural effusions. The cardiomediastinal silhouette is normal. XR/XR chest 2V IMPRESSION: No acute cardiopulmonary disease.
[2023-03-17 15:03] VITALS: BP 138/72; PULSE 100; RESP 19; TEMP 36.6; O2SAT 99; BMI 28.1
--- NOTE | 2023-03-17 15:04 | ED.GENADULT ---
HPI - General Adult General Chief complaint: Abdominal Pain Stated complaint: kidney and lung bladder pain Time Seen by Provider: 03/17/23 18:13 Source: patient Mode of arrival: ambulatory Limitations: language barrier (Nepalese-speaking certified medical transcriptionist utilized) History of Present Illness HPI narrative: Patient is a 52-year-old female who presents emergency department for evaluation of persistent left flank pain. She reports onset of symptoms to be approximately 5 days ago. She states she was seen in this emergency department, she was diagnosed with a urinary tract infection and given prescription for cefdinir. She was advised to follow-up with her primary care provider for any persistent symptoms. She went to her primary care office today reporting that she continued to have pain despite completing the antibiotics in the use of oxycodone with Tylenol. She had a urinalysis obtained in office which reportedly did not show any abnormality. She expresses concern about kidney stone. She is endorsing persistent dysuria described as a burning sensation when urinating, and decreased urinary output. She denies fevers, chills, chest pain, shortness of breath, difficulty breathing, nausea, vomiting, constipation, diarrhea, bloody or dark stools, abnormal vaginal discharge, genital lesions or sores. Denies concern for sexually transmitted infection. Related Data Home Medications Medication Instructions Recorded Confirmed clonazepam 1 mg tablet 1 mg PO BID PRN Anxiety 04/28/20 06/05/22 zolpidem 10 mg tablet 10 mg PO BEDTIME PRN Insomnia 07/20/21 06/05/22 amitriptyline 50 mg tablet 50 mg PO BEDTIME 06/05/22 06/05/22 fluticasone propionate 50 1 spray intranasal DAILY PRN 06/05/22 06/05/22 mcg/actuation nasal Allergy Symptoms spray,suspension docusate sodium 100 mg capsule 100 mg PO BID 09/15/22 nortriptyline 25 mg capsule 25 mg PO BEDTIME 09/15/22 sennosides 8.6 mg tablet (senna) 8.6 mg PO BEDTIME constipation 09/15/22 topiramate 100 mg tablet 100 mg PO BID 09/15/22 Previous Rx's Medication Instructions Recorded mirabegron 25 mg tablet,extended 25 mg PO DAILY #30 tabs 10/06/20 release 24 hr (Myrbetriq) cane with quad tips #1 ea 01/28/21 methylcellulose (laxative) 500 mg 500 mg PO DAILY #90 tabs 05/05/22 tablet (Citrucel) pen needle, diabetic 32 gauge x #100 ea 05/17/22 (BD Vanessa 2nd Gen Pen Needle) zucbzlkssl-ssxmjuybexrnx-ohlqssbp 1 cap PO Q8H PRN migraine headae 06/07/22 50 mg-300 mg-40 mg capsule #14 caps (Fioricet) insulin degludec 100 unit/mL (3 18 unit (0.18 mL) subcut BEDTIME 06/21/22 mL) subcutaneous pen (Tresiba 90 days #30 mL FlexTouch U-100 insulin) ondansetron 4 mg disintegrating 4 mg PO DAILY PRN Nausea #14 tabs 06/21/22 tablet albuterol sulfate 90 mcg/actuation 2 puff inhalation Q6H PRN 06/25/22 aerosol inhaler (ProAir HFA) shortness of breath or wheezing #18 grams meclizine 12.5 mg tablet 12.5 mg PO DAILY PRN dizziness #20 06/25/22 tabs albuterol sulfate 2.5 mg/3 mL 2.5 mg (3 mL) inhalation QID PRN 06/30/22 (0.083 %) solution for nebulization shortness of breath or wheezing #75 mL lidocaine 5 % topical patch 1 patch topical DAILY #15 ea 08/23/22 (Lidoderm) cetirizine 10 mg tablet 10 mg PO DAILY #90 tabs 09/03/22 duloxetine 30 mg capsule,delayed 30 mg PO BID #180 caps 09/03/22 release fluticasone 250 mcg-salmeterol 50 1 inh inhalation BID #180 ea 09/03/22 mcg/dose blistr powdr for inhalation (Advair Diskus) bisacodyl 5 mg tablet,delayed 10 mg PO BEDTIME #180 tabs 09/15/22 release (Dulcolax (bisacodyl)) cholestyramine-aspartame 4 gram 4 g PO BID #231 grams 09/21/22 oral powder (Cholestyramine Light) ezetimibe 10 mg tablet 10 mg PO BEDTIME #90 tabs 10/06/22 dulaglutide 3 mg/0.5 mL 3 mg (0.5 mL) subcut FR@1000 #6 mL 11/05/22 subcutaneous pen injector ([facility]) lidocaine 5 % topical patch 1 patch topical DAILY PRN painful 11/15/22 muscle spasm #30 ea methyl salicylate 10 %-menthol 3 % 1 patch topical Q8-12H PRN muscle 11/15/22 topical patch (Salonpas (methyl pain #20 ea salicylate-menthol)) diphenhydramine HCl 25 mg capsule 25 mg PO BEDTIME PRN allergy 11/20/22 (Benadryl) symptoms #20 caps olopatadine 0.1 % eye drops (Eye 1 drp ophthalmic (eye) BID 7 days 11/20/22 Allergy Itch-Redness Relief) #5 mL omeprazole 20 mg capsule,delayed 20 mg PO DAILY@0630 gerd #30 caps 11/24/22 release incontinence pad #120 ea 12/23/22 ropinirole 0.5 mg tablet 0.5 mg PO BEDTIME #90 caps 12/28/22 cholecalciferol (vitamin D3) 25 25 mcg PO DAILY #90 tabs 01/05/23 mcg (1,000 unit) tablet gabapentin 400 mg capsule 400 mg PO TID 30 days #90 caps 01/05/23 blood sugar diagnostic (FreeStyle #300 ea 02/14/23 Lite Strips) blood-glucose meter (FreeStyle #1 ea 02/14/23 Lite Meter kit) lancets 28 gauge (FreeStyle #300 ea 02/14/23 Lancets) famotidine 40 mg tablet 40 mg PO DAILY #30 tabs 02/16/23 oxycodone 5 mg tablet 5 mg PO BID PRN pain 5 days #10 02/21/23 tabs metformin 750 mg tablet,extended 750 mg PO BID 90 days #180 tabs 03/04/23 release 24 hr tizanidine 4 mg tablet 4 mg PO TID PRN for muscle spasm 03/04/23 #30 tabs cefdinir 300 mg capsule 300 mg PO BID #10 caps 03/12/23 ibuprofen 600 mg tablet 600 mg PO Q6H PRN pain #20 tabs 03/12/23 cyclobenzaprine 10 mg tablet 10 mg PO TID PRN muscle spasm #20 03/17/23 tabs phenazopyridine 100 mg tablet 100 mg PO TID PRN pain 6 doses #6 03/17/23 (Pyridium) tabs Allergies Allergy/AdvReac Type Severity Reaction Status Date / Time aspirin Allergy Intermediate rash Verified 03/17/23 15:03 latex [LATEX] Allergy Mild HIVES/RASH Verified 03/17/23 15:03 Penicillins Allergy Mild unknown Verified 03/17/23 15:03 amoxicillin AdvReac Intermediate diarrhea Verified 03/17/23 15:03 Beef Containing Products AdvReac Intermediate DIARRHEA/VO Verified 03/17/23 15:03 MITING [employer] Allergy Intermediate inflammation Uncoded 03/17/23 15:03 and swelling Review of Systems Review of Systems: Constitutional : No Weight loss, No Fever, No Chills ENT/Mouth :? No sore throat, No Rhinorrhea Eyes: No Swelling, No Redness Cardiovascular : No Chest Pain, No SOB, No Edema Respiratory : No Cough, No Sputum, No Wheezing Gastrointestinal : No Nausea, no Vomiting, no Diarrhea, positive flank pain, No Hematochezia, No Melena Genitourinary : Positive Dysuria, No Urinary Frequency, No Hematuria, No Urgency?positive hesitancy Musculoskeletal : No joint pain, No Myalgias, No Joint Swelling Skin : No Skin Lesions, No rash Neuro : No Weakness, No Numbness, No Dizziness, No Headache Psych : No Anxiety/Panic, No Depression Heme/Lymph: No Bruising, No Lymphadenopathy Endocrine : No Polyuria, No Polydipsia Yes all other systems are reviewed and are negative PMFSH Past Medical History Attestation statement: The following information was validated with the patient. Source: old records reviewed Medical History Anxiety Arthritis B12 deficiency Candidiasis Controlled diabetes mellitus type II without complication COVID-19 vaccination declined Decreased hearing of right ear Depression with anxiety Diarrhea Dyslipidemia Fibromyalgia GERD (gastroesophageal reflux disease) Lower thoracic back pain Mild intermittent asthma Mixed stress and urge incontinence Non-toxic multinodular goiter Obesity (BMI 30-39.9) Pancreatic insufficiency Pelvic pain Restless leg syndrome Tinnitus of right ear Tubular adenoma Type 2 diabetes mellitus with microalbuminuria, with long-term current use of insulin Vertigo Surgical History H/O thyroidectomy History of esophagogastroduodenoscopy (EGD) Hx of appendectomy Hx of BSO (bilateral salpingo-oophorectomy) Hx of section Hx of cholecystectomy Hx of colonoscopy Hx of laparoscopy Family History Family History Father Diabetes mellitus Heart murmur Mother Diabetes mellitus HTN (hypertension) Glaucoma Melanoma Social History Social History Household Members: Family Housing: House Do you presently have visiting nurse or other home services: Yes Alcohol intake: never Patient Tobacco Use Status: Former Tobacco user Quit Date: 1 year ago Tobacco use type: Cigarette Cigarettes Per Day: 5 Years Smoked: 34 Smoked in Last 30 Days: No e-Cigarette/Vaping Use: Currently Using Use of substances other than those prescribed or required for medical reasons: No Advance Directives: Yes Advance Directives on File: Yes Advance Directives Date on File: 06/21/22 Patient : No service: No Current occupational status: unemployed Sexual orientation: Straight/Heterosexual Gender identity: Female Cognitive needs: No Hearing needs: No Vision needs: No Physical Exam ED Vital Signs: Vital Signs - 24 hr 03/17/23 15:03 03/17/23 19:43 03/17/23 20:32 Temperature 98 F 98.1 F Pulse Rate 100 80 82 Respiratory Rate 19 16 16 Blood Pressure 138/72 115/62 115/68 Pulse Oximetry 99 97 96 Oxygen Delivery Method Room Air Room Air Room Air BMI result Body Mass Index 28.1 Appearance: Alert.?Oriented to person, place and time. No acute distress.?Normal affect. Eyes: Pupils equal, round and reactive to light.? ENT: Pharynx normal.?? Neck: Normal inspection.? Neck supple.?? CVS: Heart sounds normal. Normal heart rate and rhythm.? Pulses normal.?? Respiratory: No respiratory distress.? Lung sounds clear to auscultation bilaterally?? Abdomen: Soft and non-tender. Normoactive bowel sounds. Left CVA tenderness, diffuse tenderness upon palpation of the left back Skin: Skin warm and dry.? Normal skin color.? ? Extremities: No lower extremity edema.? No calf ttp? Neuro: Moves all extremities spontaneously. Sensation intact bilaterally. No focal neuro deficits. Ambulates with normal steady gait. Course Course Course Narrative: RME- 52 year old female with past medical history significant for diabets, fibromyalgia, GERD, anxiety, obesity presents for evaluation of left flank pain. She went to urgent care today and had a negative UA. Plan for labs, ct abdomen and pelvis without contrast Reevaluation(s) Reevaluation #1: CBC is without leukocytosis or anemia. CMP is overall unremarkable. Lipase is within normal limits. Chest x-ray is without acute abnormality no evidence of pneumonia, consolidation, or pulmonary congestion. CT of the abdomen and pelvis without evidence of acute intra-abdominal process no renal calculi, diverticulosis without diverticulitis. Urinalysis from urgent care today without evidence of urinary tract infection or microscopic hematuria. At this time concern for pain more consistent with musculoskeletal etiology versus genitourinary etiology; will trial cyclobenzaprine and Toradol at this time, although she is endorsing dysuria, and concern for urinary retention. Offered to have urogenital examination however she declines. Bladder scan without significant urinary retention. Will trial treatment with Pyridium for dysuria, and recommend outpatient follow-up with Urology/PCP for further management. Time: 18:58 Reevaluation #2: MSK back course Medications Administered Discontinued Medications Generic Name Dose Route Start Last Admin Trade Name Freq PRN Reason Stop Dose Admin Cyclobenzaprine HCl 10 mg 03/17/23 18:36 03/17/23 18:51 Cyclobenzaprine Hcl 10 Mg Tablet PO 03/17/23 18:37 10 mg ONCE ONE Administration Ketorolac Tromethamine 30 mg 03/17/23 18:36 03/17/23 18:50 Ketorolac Tromethamine 30 Mg/Ml Vial IM 03/17/23 18:37 30 mg ONCE ONE Administration Medical Decision Making Medical Decision Making [facility] Narrative: Patient is a 52-year-old female with past medical history significant for diabets, fibromyalgia, GERD, anxiety, obesity presenting to the emergency department for evaluation of flank pain as per HPI. At the time my examination she is overall well-appearing, nontoxic, afebrile. She does appear uncomfortable with particular movements in upon palpation of the back. She has concerns for potential urinary retention reporting decreased urinary output despite drinking bottles of water wall in the waiting room, will obtain bladder scan for further evaluation. Will obtain CBC to evaluate for leukocytosis/ anemia, CMP and lipase to evaluate for abnormal electrolytes /abnormal renal function/ abnormal hepatic/biliary function, Chest x-ray to evaluate for consolidation/ infiltrate/ mass/ pulmonary congestion CT abdomen and pelvis. Of note, she was seen in the emergency department 5 days ago for evaluation of left back pain that was radiating to the leg, where she was diagnosed with urinary tract infection prescribed cefdinir, review urine culture from that visit reveals mixed stacy characteristic of urogenital contamination Differential Diagnosis Differential Diagnoses: The differential diagnosis associated with the presentation includes (Nephrolithiasis, obstructive calculi, hydronephrosis, pyelonephritis, diverticulitis, pancreatitis, gastritis,) Admission/Observation Consideration of admission/observation: Escalation of care including admission/observation considered (I considered admission for abdominal/flank pain, see course narrative for further detail) Lab Data MDM Lab Attestation statement: I reviewed the patient's lab results. (See course narrative for further detail) 03/17/23 15:24 03/17/23 15:24 Labs: Lab Results 03/17/23 03/17/23 Range/Units 15:24 15:24 WBC 8.8 (4.8-10.8) X10*3/uL RBC 4.48 (4.20-5.50) X10*6/uL Hgb 14.1 (12.0-16.0) g/dl Hct 40.4 (37.0-47.0) % MCV 90.2 (80.0-98.0) fL MCH 31.5 (27.0-33.0) pg MCHC 34.9 (31.0-35.0) g/dl RDW 12.5 (11.0-16.0) % Plt Count 301 (160-400) X10*3/uL MPV 9.3 L (9.4-12.3) fL Immature Gran % (Auto) 0.2 (0.0-0.4) % Neut % (Auto) 49.6 (45-73) % Lymph % (Auto) 43.3 H (20-40) % Rock % (Auto) 5.5 (2-11) % Eos % (Auto) 0.7 (0-4) % Baso % (Auto) 0.7 (0-2) % Lymph # (Auto) 3.8 (1.2-4.9) X10*3/uL Rock # (Auto) 0.5 (0.1-1.2) X10*3/uL Eos # (Auto) 0.1 (0.0-0.4) X10*3/uL Baso # (Auto) 0.1 (0.0-0.2) X10*3/uL Abs Immat Gran (auto) 0.02 (0.00-0.03) X10*3/uL Absolute Neuts (auto) 4.4 (2.0-8.3) x10*3/uL Absolute Nucleated RBC 0.000 (0.0-0.012) X10*3/uL Nucleated RBC % (auto) 0.0 (0.0-0.2) /100WBC Sodium 141 (135-145) mmol/L Potassium 3.9 (3.3-5.1) mmol/L Chloride 111 H (96-108) mmol/L Carbon Dioxide 24 (22-29) mmol/L Anion Gap 10 L (12-20) BUN 12 (9-16) mg/dL Creatinine 0.81 (0.5-1.4) mg/dL Estim Creat Clear Calc 77.2 Estimated GFR > 60 Random Glucose 87 (60-115) mg/dL Calcium 9.9 (8.4-10.2) mg/dL Total Bilirubin 0.7 (0.0-1.0) mg/dL AST 18 (5-31) U/L ALT 17 (0-31) U/L Alkaline Phosphatase 119 H (39-117) U/L Total Protein 7.2 (6.5-8.0) g/dL Albumin 4.6 (3.5-5.0) g/dL Lipase 31 (8-78) U/L Independent Interpretation I performed an independent interpretation of an: Plain X-Ray (I personally interpreted chest x-ray, see course narrative for further detail) Radiology Impression Discussion of test interpretation with radiology: I have reviewed the radiologist's reading. Radiologist Impression: XR/XR chest 2V IMPRESSION: No acute cardiopulmonary disease. CT/CT abdomen pelvis wo IV con IMPRESSION: No renal calculi or renal collecting system obstructive change. ? Fibroid uterus. ? Diverticula of the descending colon without diverticulitis. ? No acute intra-abdominal process.? External Record Review External record reviewed: Outpatient record Prescription Management I considered prescription management with: Pain Medication Discharge Plan Discharge Clinical Impression: Lumbar strain, Dysuria Patient Disposition: Home, Self-Care Instructions: Acute Low Back Pain (ED), Dysuria (ED), Lower Back Exercises (ED) Additional Instructions: You can take ibuprofen 200 mg, 3 tablets (600mg) every 6-8 hours as needed for pain, in addition to Tylenol 500 mg, 2 tablets (1,000mg) every 4-6 hours as needed for pain, but not to exceed 3 doses daily (3,000mg).? For pain unrelieved by Tylenol and ibuprofen I have sent a prescription for cyclobenzaprine, a muscle relaxer to your pharmacy. This medication may make you drowsy, you should not drive, drink alcohol, or work while taking this medication. Regarding the burning sensation when you are urinating, as discussed there is no evidence of a urinary tract infection or kidney abnormality today. I have sent a prescription for Pyridium to your pharmacy to use for the burning. Should the symptoms persist, you should consider follow-up with Urology, I have provided her contact information. Additionally, please follow-up with your primary care provider next week. You may return back to emergency department any new or worsening symptoms or concerns. Prescriptions: New phenazopyridine [Pyridium] 100 mg tablet 100 mg PO TID PRN (Reason: pain) Qty: 6 0RF cyclobenzaprine 10 mg tablet 10 mg PO TID PRN (Reason: muscle spasm) Qty: 20 0RF No Action (DME) pen needle, diabetic [BD Vanessa 2nd Gen Pen Needle] 32 gauge x 5/32 needle See Rx Instructions .Route Qty: 100 3RF Rx Instructions: Use to inject insulin once a day albuterol sulfate [ProAir HFA] 90 mcg/actuation HFA aerosol inhaler 2 puff inhalation Q6H PRN (Reason: shortness of breath or wheezing) Qty: 18 5RF meclizine 12.5 mg tablet 12.5 mg PO DAILY PRN (Reason: dizziness) Qty: 20 1RF albuterol sulfate 2.5 mg /3 mL (0.083 %) solution for nebulization 2.5 mg inhalation QID PRN (Reason: shortness of breath or wheezing) Qty: 75 0RF fluticasone propion-salmeterol [Advair Diskus] 250-50 mcg/dose blister with device 1 inh inhalation BID Qty: 180 3RF duloxetine 30 mg capsule,delayed release(DR/EC) 30 mg PO BID Qty: 180 3RF cetirizine 10 mg tablet 10 mg PO DAILY Qty: 90 3RF Cholestyramine Light 4 gram powder 4 g PO BID Qty: 231 3RF Rx Instructions: administer w/meal; avoid other meds within 1hr before or 4-6hr after dose ezetimibe 10 mg tablet 10 mg PO BEDTIME Qty: 90 3RF Trulicity 3 mg/0.5 mL pen injector 3 mg subcut FR@1000 Qty: 6 1RF lidocaine 5 % adhesive patch,medicated 1 patch topical DAILY PRN (Reason: painful muscle spasm) Qty: 30 1RF Rx Instructions: leave on most painful area for up to 12 hrs omeprazole 20 mg capsule,delayed release(DR/EC) 20 mg PO DAILY@0630 Qty: 30 2RF (DME) incontinence pad See Rx Instructions .Route .MEDSUPPLY Qty: 120 8RF Rx Instructions: As directed 4 times a day as needed ropinirole 0.5 mg tablet 0.5 mg PO BEDTIME Qty: 90 1RF gabapentin 400 mg capsule 400 mg PO TID 30 Days Qty: 90 4RF cholecalciferol (vitamin D3) 25 mcg (1,000 unit) tablet 25 mcg PO DAILY Qty: 90 1RF (DME) blood-glucose meter [FreeStyle Lite Meter] Kit See Rx Instructions .Route Qty: 1 0RF Rx Instructions: As directed (DME) FreeStyle Lite Strips Strip See Rx Instructions .Route Qty: 300 1RF Rx Instructions: test blood sugar 3 times per day (DME) lancets [FreeStyle Lancets] 28 gauge misc See Rx Instructions .Route Qty: 300 1RF Rx Instructions: test blood sugar 3 times per day famotidine 40 mg tablet 40 mg PO DAILY Qty: 30 6RF tizanidine 4 mg tablet 4 mg PO TID PRN (Reason: for muscle spasm) Qty: 30 0RF metformin 750 mg tablet extended release 24 hr 750 mg PO BID 90 Days Qty: 180 1RF amitriptyline 50 mg Tablet 50 mg PO BEDTIME fluticasone propionate 50 mcg/actuation spray,suspension 1 spray intranasal DAILY PRN (Reason: Allergy Symptoms) [id number]-hvsmphysgtmkv-mjlx [Fioricet] 50-300-40 mg capsule 1 cap PO Q8H PRN (Reason: migraine headae) Qty: 14 0RF olopatadine [Eye Allergy Itch-Redness Rlf] 0.1 % drops 1 drp ophthalmic (eye) BID 7 Days Qty: 5 0RF Rx Instructions: separate doses by at least 6-8 hours diphenhydramine HCl [Benadryl] 25 mg capsule 25 mg PO BEDTIME PRN (Reason: allergy symptoms) Qty: 20 0RF cefdinir 300 mg capsule 300 mg PO BID Qty: 10 0RF ibuprofen 600 mg tablet 600 mg PO Q6H PRN (Reason: pain) Qty: 20 0RF clonazepam 1 mg tablet 1 mg PO BID PRN (Reason: Anxiety) Myrbetriq 25 mg tablet extended release 24 hr 25 mg PO DAILY Qty: 30 0RF (DME) cane with quad tips See Rx Instructions .Route .MEDSUPPLY Qty: 1 0RF Rx Instructions: use as directed Salonpas(m.salicylate-menthol) 10-3 % adhesive patch,medicated 1 patch topical Q8-12H PRN (Reason: muscle pain) Qty: 20 1RF Rx Instructions: do not exceed 2 doses in a 24 hour period lidocaine [Lidoderm] 5 % adhesive patch,medicated 1 patch topical DAILY Qty: 15 1RF Rx Instructions: leave on most painful area for up to 12 hrs oxycodone 5 mg tablet 5 mg PO BID PRN (Reason: pain) 5 Days Qty: 10 0RF Rx Instructions: Partial Fill upon patient request. Tresiba FlexTouch U-100 100 unit/mL (3 mL) insulin pen 18 unit subcut BEDTIME 90 Days Qty: 30 4RF ondansetron 4 mg tablet,disintegrating 4 mg PO DAILY PRN (Reason: Nausea) Qty: 14 0RF zolpidem 10 mg tablet 10 mg PO BEDTIME PRN (Reason: Insomnia) Citrucel 500 mg tablet 500 mg PO DAILY Qty: 90 3RF Rx Instructions: take it with full glass of water sennosides [senna] 8.6 mg tablet 8.6 mg PO BEDTIME topiramate 100 mg tablet 100 mg PO BID nortriptyline 25 mg capsule 25 mg PO BEDTIME docusate sodium 100 mg capsule 100 mg PO BID bisacodyl [Dulcolax (bisacodyl)] 5 mg tablet,delayed release (DR/EC) 10 mg PO BEDTIME Qty: 180 4RF Referrals: Hilton Malik MD [Physician] - Mali Nova MD [Primary Care Provider] - Interventions: ED Discharge Assessment Last Done: 03/17/23 21:04 Discharge Date/Time: 03/17/23 21:06 Print Language: Nepalese
[2023-03-17 15:28] LABS: MANUAL DIFF FLAG NO
[2023-03-17 15:30] LABS: Basophils Absolute Auto 0.1 X10*3/uL (0.0-0.2); Basophils Percent Auto 0.7 % (0-2); Eosinophils Absolute Auto 0.1 X10*3/uL (0.0-0.4); Eosinophils Percent Auto 0.7 % (0-4); Hematocrit 40.4 % (37.0-47.0); Hemoglobin 14.1 g/dl (12.0-16.0); Imm Gran Abs Auto 0.02 X10*3/uL (0.00-0.03); Imm Gran Pct Auto 0.2 % (0.0-0.4); Lymphocytes Absolute Auto 3.8 X10*3/uL (1.2-4.9); Lymphocytes Percent Auto 43.3 % (20-40); Mean Corpuscular HGB Conc 34.9 g/dl (31.0-35.0); Mean Corpuscular Hemoglobin 31.5 pg (27.0-33.0); Mean Corpuscular Volume 90.2 fL (80.0-98.0); Mean Platelet Volume 9.3 fL (9.4-12.3); Monocytes Absolute Auto 0.5 X10*3/uL (0.1-1.2); Monocytes Percent Auto 5.5 % (2-11); Neutrophils Absolute Auto 4.4 x10*3/uL (2.0-8.3); Neutrophils Percent Auto 49.6 % (45-73); Platelet Count 301 X10*3/uL (160-400); Red Blood Count 4.48 X10*6/uL (4.20-5.50); Red Cell Distribution Width 12.5 % (11.0-16.0); White Blood Count 8.8 X10*3/uL (4.8-10.8)
[2023-03-17 15:49] LABS: Alanine Aminotransferase 17 U/L (0-31); Albumin Level 4.6 g/dL (3.5-5.0); Alkaline Phosphatase 119 U/L (39-117); Anion Gap 10 (12-20); Aspartate Amino Transferase 18 U/L (5-31); Bilirubin Total 0.7 mg/dL (0.0-1.0); Blood Urea Nitrogen 12 mg/dL (9-16); Calcium 9.9 mg/dL (8.4-10.2); Carbon Dioxide 24 mmol/L (22-29); Chloride 111 mmol/L (96-108); Creatinine Clr Calc Pharmacy 77.2; Estimated Glomerular Filt Rate > 60; Glucose Random 87 mg/dL (60-115); Lipase 31 U/L (8-78); Potassium 3.9 mmol/L (3.3-5.1); Sodium 141 mmol/L (135-145); Total Protein 7.2 g/dL (6.5-8.0)
[2023-03-17] MEDS: Ketorolac Tromethamine 30 MG/ML VIAL IM (18:50)
[2023-03-17] MEDS: Cyclobenzaprine HCl 10 MG TABLET PO (18:51)
[2023-03-17 19:43] VITALS: BP 115/62; PULSE 80; RESP 16; TEMP 36.7; O2SAT 97
[2023-03-17 20:32] VITALS: BP 115/68; PULSE 82; RESP 16; O2SAT 96
== END 2023-03-17 21:06 | disposition home or self-care (01) ==
PROVIDERS: Physician Assistant; Emergency Provider Emergency Medicine; PCP Internal Medicine
DX: R30.0 Dysuria (principal); S39.012A Strain of muscle, fascia and tendon of lower back, initial encounter; X58.XXXA Exposure to other specified factors, initial encounter; E11.9 Type 2 diabetes mellitus without complications; E78.5 Hyperlipidemia, unspecified; Z87.891 Personal history of nicotine dependence; Z79.899 Other long term (current) drug therapy; Z79.4 Long term (current) use of insulin; Y93.9 Activity, unspecified; Y92.9 Unspecified place or not applicable; Y99.9 Unspecified external cause status
CPT/HCPCS: 36415; 51798; 71046; 74176; 80053; 83690; 85025; 96372; 99284; J1885

== ENCOUNTER 2023-03-24 09:54 | Outpatient (AMB) | payer OTHER, SELFPAY ==
[2023-03-24 10:56] VITALS: BP 102/66; PULSE 95; O2SAT 97; BMI 30.8
--- NOTE | 2023-03-24 10:56 | MHC.PC.OV ---
Vital Signs 03/24/23 10:56 Height 5 ft 3 in Weight 174 lb BMI 30.8 BP 102/66 Blood Pressure Location Lt brachial Position Sitting Pulse 95 Pulse Source Pulse Oximeter Pulse Oximetry (%) 97 Oxygen Delivery Method Room Air Intake Visit Reasons: f/u mid back pain Intake Note: Pt is here today c/o mid back pain Allergies aspirin Allergy (Intermediate, Verified 03/24/23 11:12) rash latex [LATEX] Allergy (Mild, Verified 03/24/23 11:12) HIVES/RASH Penicillins Allergy (Mild, Verified 03/24/23 11:12) unknown amoxicillin Adverse Reaction (Intermediate, Verified 03/24/23 11:12) diarrhea Beef Containing Products Adverse Reaction (Intermediate, Verified 03/24/23 11:12) DIARRHEA/VOMITING Red Meats And Seafood Allergy (Intermediate, Uncoded 03/24/23 11:12) inflammation and swelling Medication List - Last Reconciled 03/24/23 by Mali Nova MD [incontinence pad As directed 4 times a day as needed] albuterol sulfate 2.5 mg (3 mL) inhalation QID PRN albuterol sulfate 90 mcg/actuation (ProAir HFA) 2 puffs inhalation Q6H PRN amitriptyline 50 mg PO BEDTIME bisacodyl (Dulcolax (bisacodyl)) 10 mg (2 x 5 mg) PO BEDTIME blood sugar diagnostic (FreeStyle Lite Strips) test blood sugar 3 times per day blood-glucose meter (FreeStyle Lite Meter kit) As directed [id number] 50-300-40 mg (Fioricet) 1 cap PO Q8H PRN [cane with quad tips use as directed] cetirizine 10 mg PO DAILY cholecalciferol (vitamin D3) 25 mcg PO DAILY cholestyramine-aspartame 4 gram (Cholestyramine Light) 4 grams PO BID clonazepam 1 mg PO BID PRN diphenhydramine HCl (Benadryl) 25 mg PO BEDTIME PRN docusate sodium 100 mg PO BID dulaglutide (Trulicity) 3 mg (0.5 mL) subcut FR@1000 duloxetine 30 mg PO BID ezetimibe 10 mg PO BEDTIME famotidine 40 mg PO DAILY fluticasone propion-salmeterol 250-50 mcg/dose (Advair Diskus) 1 inh inhalation BID fluticasone propionate 50 mcg/actuation 1 spray intranasal DAILY PRN gabapentin 400 mg PO TID 30 days ibuprofen 600 mg PO Q6H PRN insulin degludec (Tresiba FlexTouch U-100 insulin) 18 units (0.18 mL) subcut BEDTIME 90 days lancets (FreeStyle Lancets) test blood sugar 3 times per day meclizine 12.5 mg PO DAILY PRN metformin ER 750 mg PO BID 90 days methyl salicylate-menthol 10-3 % (Salonpas (methyl salicylate-menthol)) 1 patch topical Q8-12H PRN methylcellulose (laxative) (Citrucel) 500 mg PO DAILY mirabegron ER (Myrbetriq) 25 mg PO DAILY nortriptyline 25 mg PO BEDTIME olopatadine 0.1% (Eye Allergy Itch-Redness Relief) 1 drp ophthalmic (eye) BID 7 days omeprazole 20 mg PO DAILY@0630 ondansetron 4 mg PO DAILY PRN pen needle, diabetic (BD Vanessa 2nd Gen Pen Needle) Use to inject insulin once a day ropinirole 0.5 mg PO BEDTIME sennosides (senna) 8.6 mg PO BEDTIME tizanidine 4 mg PO TID PRN topiramate 100 mg PO BID zolpidem 10 mg PO BEDTIME PRN Tobacco use date assessed: 03/24/23 Dental Screening Dental Screen Date: 03/24/23 Did you have a dental visit in the last 12 months?: Yes Did you have a dental problem in the last 6 months where you did not have access to dental care?: No Was dental information given to patient?: Patient has dentist HPI f/u mid back pain HPI Details 52 year old female with past medical history significant for diabetes, fibromyalgia, GERD, anxiety, obesity presents for evaluation of left flank pain. She went to urgent care today and had a negative UA . CBC done is without leukocytosis or anemia.? CMP is overall unremarkable.? Lipase is within normal limits.? Chest x-ray is without acute abnormality no evidence of pneumonia, consolidation, or pulmonary congestion.? CT of the abdomen and pelvis without evidence of acute intra-abdominal process no renal calculi, diverticulosis without diverticulitis.? Urinalysis from urgent care to trace leukocytes and microscopic hematuria.? It was felt that her symptom was musculoskeletal in etiology, and was prescribed cyclobenzaprine and Toradol at this time,? Bladder scan without significant urinary retention.? She was also placed on Pyridium for dysuria. Patient states that Pyridium has helped with dysuria, but still having intermittent episodes of low back pain. [facility] Medical History (Updated 03/24/23 @ 11:21 by Mali Nova MD) Anxiety Arthritis B12 deficiency Candidiasis Controlled diabetes mellitus type II without complication COVID-19 vaccination declined Decreased hearing of right ear Depression with anxiety Diarrhea Dyslipidemia Fibromyalgia GERD (gastroesophageal reflux disease) Lower thoracic back pain Microhematuria Mild intermittent asthma Mixed stress and urge incontinence Non-toxic multinodular goiter Obesity (BMI 30-39.9) Pancreatic insufficiency Pelvic pain Restless leg syndrome Tinnitus of right ear Tubular adenoma Type 2 diabetes mellitus with microalbuminuria, with long-term current use of insulin Vertigo Surgical History H/O thyroidectomy History of esophagogastroduodenoscopy (EGD) Hx of appendectomy Hx of BSO (bilateral salpingo-oophorectomy) Hx of section Hx of cholecystectomy Hx of colonoscopy Hx of laparoscopy Family History Father Diabetes mellitus Heart murmur Mother Diabetes mellitus HTN (hypertension) Glaucoma Melanoma Social History Household Members: Family Housing: House Do you presently have visiting nurse or other home services: Yes Alcohol intake: never Patient Tobacco Use Status: Former Tobacco user Quit Date: 1 year ago Tobacco use type: Cigarette Cigarettes Per Day: 5 Years Smoked: 34 e-Cigarette/Vaping Use: Currently Using Advance Directives Date on File: 06/21/22 service: No Current occupational status: unemployed Sexual orientation: Straight/Heterosexual Gender identity: Female Cognitive needs: No Hearing needs: No Vision needs: No Questionnaire Thrive Questionnaire Date Thrive assessed: 06/21/22 NANCY-7 AMB Questionnaire NANCY-7 Date NANCY - 7 assessed: 06/21/22 Source: Developed by Drs. Umair Drew, Amber Up, Glynn Benson and colleagues, with an educational pola from [employer]. Review of Systems Const All systems reviewed & are unremarkable except as noted in HPI and below Physical exam (Primary Care) Vital Signs: Last Vital Signs Pulse 95 03/24/23 10:56 BP 102/66 03/24/23 10:56 Pulse Ox 97 03/24/23 10:56 Oxygen Delivery Method Room Air 03/24/23 10:56 BMI result Body Mass Index 30.8 Tobacco/Smoking Status: Tobacco use Status Tobacco use date assessed 03/24/23 03/24/23 11:08 Patient Tobacco Use Status Former Tobacco user 03/24/23 11:04 Tobacco use type Cigarette 03/24/23 11:04 e-Cigarette/Vaping Use Currently Using 03/24/23 11:04 Thrive Assessment: Date of Thrive Assessment Date Thrive assessed 06/21/22 03/24/23 11:04 Const General: comfortable and no acute distress Orientation/consciousness: patient oriented x3 HENMT Mouth: moist mucous membranes Neck Neck: Yes full ROM, Yes no lymphadenopathy and Yes supple Resp Effort & Inspection: normal respiratory effort and able to speak in complete sentences Auscultation: clear to auscultation bilaterally Cardio Other: S1-S2 present regular rate and rhythm GI Inspection: Yes obesity Palpation (GI): Soft to palpation, no guarding and no masses General: Yes no CVA tenderness Back/Spine/Pelvis Back: no CVA tenderness Thoracic/Lumbar Spine: paraspinal muscle tenderness bilaterally in the lower lumbar Skin General skin exam: no rashes or lesions noted Neuro General: patient oriented x3, gait normal, tone normal, moves all extremities, Normal light touch and pain sensation, no focal motor deficits, CN's II-XI intact bilaterally and normal sensation to monofilament Extrem General: Yes full ROM, Yes no joint enlargement, Yes no clubbing, cyanosis or edema and Yes normal gait Assessment and Plan Assessment & Plan (1) Microhematuria: Code(s): R31.29 - Other microscopic hematuria (2) Urinary urgency: Code(s): R39.15 - Urgency of urination (3) Painful bladder spasm: Code(s): R30.1 - Vesical tenesmus Plan Urology consult obtained, in the meantime patient advised to apply moist heat to lower back, may continue taking cyclobenzaprine as needed Orders: Referrals Urology Referral R30.1 - Vesical tenesmus, R31.29 - Other microscopic hematuria, R39.15 - Urgency of urination Medications: New alcohol swabs (Alcohol Prep Pads) 1 pad topical TID 200 ea 2RF E11.9 - Type 2 diabetes mellitus without complications Changed From dulaglutide (Trulicity) 3 mg (0.5 mL) subcut FR@1000 6 mL 1RF E11.29 - Type 2 diabetes mellitus with other diabetic kidney complication, R80.9 - Proteinuria, unspecified, Z79.4 - emt intermediate (current) use of insulin To Trulicity (dulaglutide) 3 mg (0.5 mL) subcut FR@1000 2 mL 5RF NS E11.29 - Type 2 diabetes mellitus with other diabetic kidney complication, R80.9 - Proteinuria, unspecified, Z79.4 - snf (current) use of insulin Refilled cyclobenzaprine 10 mg PO TID PRN 20 tabs 0RF muscle spasm Coding Level of Care Code Est Pt Level 3 (47297) Diagnoses Microhematuria R31.29 Urinary urgency R39.15 Painful bladder spasm R30.1
== END 2023-03-24 13:33 | disposition home or self-care (01) ==
PROVIDERS: PCP Internal Medicine; Visit Provider Internal Medicine
DX: R31.29 Other microscopic hematuria (principal); R39.15 Urgency of urination; R30.1 Vesical tenesmus
CPT/HCPCS: 99213

== ENCOUNTER 2023-04-11 07:45 | Outpatient (AMB) | payer OTHER, SELFPAY ==
[2023-04-11 07:56] VITALS: BP 105/80; PULSE 75; BMI 31.3
--- NOTE | 2023-04-11 07:56 | MHC.OFFVIS ---
Intake Vital Signs 04/11/23 07:56 Height 5 ft 3 in Weight 176 lb 12.972 oz BMI 31.3 BP 105/80 Blood Pressure Location Lt brachial Position Sitting Pulse 75 Intake Visit Reasons: 3 month follow up Intake Note: Demi presents in office as a est.patient for a 3month f/u for Diarrhea PT CC: pt reports having bloating pt denies any other GI Issues Accounting Systems Manager Required: Yes Accounting Systems Manager Language: Salvadorean Accompanied by: Self / Same As Patient Allergies aspirin Allergy (Intermediate, Verified 04/11/23 07:56) rash latex [LATEX] Allergy (Mild, Verified 04/11/23 07:56) HIVES/RASH Penicillins Allergy (Mild, Verified 04/11/23 07:56) unknown amoxicillin Adverse Reaction (Intermediate, Verified 04/11/23 07:56) diarrhea Beef Containing Products Adverse Reaction (Intermediate, Verified 04/11/23 07:56) DIARRHEA/VOMITING [employer] Se[employer] Allergy (Intermediate, Uncoded 04/11/23 07:56) inflammation and swelling HPI 3 month follow up HPI Details LAST VISIT: Diarrhea Continue cholestyramine as it helps. Patient states that she feels like diarrhea is controlled with cholestyramine and Citrucel Pancreatic insufficiency Will increase Creon, patient is tolerating the smaller dose. GERD (gastroesophageal reflux disease) Continue omeprazole in the morning and famotidine at bedtime. Patient can continue avoiding dietary triggers and late night snacking. Staying upright for minimal 3 hours after meals discussed with patient. Tubular adenoma Tubular adenoma found in cecum on colonoscopy. Patient also had suboptimal prep in will need to return for colorectal screening in 5 years. I will see patient in 3 months, sooner on as needed basis. Patient is agreeable to this plan and verbalizes understanding of instructions. She was given the opportunity to ask questions and all questions answered. TODAY'S VISIT: Patient is here today for follow-up. Patient reports that since the last and have seen her he has been doing much better. Occasional postprandial abdominal bloating, however states that Creon helps her. Patient reports that in at least feeling less bloated. Patient denies dyspepsia, dysphagia or odynophagia. Patient is taking omeprazole in the morning before breakfast and famotidine at bedtime. Patient reports that she has moving her bowels better now. Patient is taking Citrucel in the morning and Dulcolax in the evening. Patient no longer has diarrhea moves her bowels normally. Patient denies melena, hematochezia, unintentional weight loss or ribbon like stools. Patient reports that she has been feeling much better [facility] Medical History Microhematuria Candidiasis Tubular adenoma Controlled diabetes mellitus type II without complication Diarrhea Lower thoracic back pain Pancreatic insufficiency Pelvic pain Mild intermittent asthma Depression with anxiety COVID-19 vaccination declined Decreased hearing of right ear Tinnitus of right ear Arthritis Mixed stress and urge incontinence GERD (gastroesophageal reflux disease) Type 2 diabetes mellitus with microalbuminuria, with long-term current use of insulin B12 deficiency Non-toxic multinodular goiter Dyslipidemia Obesity (BMI 30-39.9) Restless leg syndrome Vertigo Fibromyalgia Anxiety Surgical History H/O thyroidectomy Hx of BSO (bilateral salpingo-oophorectomy) Hx of laparoscopy Hx of colonoscopy History of esophagogastroduodenoscopy (EGD) Hx of appendectomy Hx of cholecystectomy Hx of section Family History Father Diabetes mellitus Heart murmur Mother Diabetes mellitus HTN (hypertension) Glaucoma Melanoma Social History Household Members: Family Housing: House Do you presently have visiting nurse or other home services: Yes Alcohol intake: never Patient Tobacco Use Status: Former Tobacco user Quit Date: 1 year ago Tobacco use type: Cigarette Cigarettes Per Day: 5 Years Smoked: 34 e-Cigarette/Vaping Use: Currently Using Advance Directives Date on File: 06/21/22 service: No Current occupational status: unemployed Sexual orientation: Straight/Heterosexual Gender identity: Female Cognitive needs: No Hearing needs: No Vision needs: No Review of Systems Const Denies weight gain and Denies weight loss ENT Reports no additional complaints, Denies dysphagia and Denies odynophagia Card Reports no additional complaints Resp Reports no additional complaints GI Denies abdominal pain, Denies belching, Denies melena, Denies bloating, Denies change in bowel habits, Denies dysphagia, Denies excessive flatus, Denies dyspepsia, Denies heartburn, Denies diarrhea, Denies loose stools, Denies nausea, Denies odynophagia and Denies vomiting Reports no additional complaints Musc Reports no additional complaints Neuro Reports no additional complaints Psych Reports no additional complaints Endo Reports no additional complaints Physical Exam Vital Signs: Last Vital Signs Pulse 75 04/11/23 07:56 BP 105/80 04/11/23 07:56 BMI result Body Mass Index 31.3 Const General: healthy appearing, no acute distress and well developed Nutritional Appearance: obese Orientation/consciousness: patient oriented x3 HEENT Head: Yes normal to inspection, Yes normocephalic and Yes atraumatic Face and sinus: Yes normal facial exam Mouth: Normal oral and palatal mucosa present Throat: Yes posterior oropharynx normal, Yes tonsils normal and Yes uvula midline Eyes General: appearance normal, both eyes and all related structures Neck Neck: Yes normal visual inspection, Yes full ROM and Yes trachea midline Thyroid: Thyroid normal Resp Effort & Inspection: normal respiratory effort, able to speak in complete sentences, no tracheal deviation and symmetric chest movement Auscultation: clear to auscultation bilaterally Cardio Rate: regular rate Heart sounds: S1 normal heart sound present and S2 normal heart sound present GI Inspection: Yes normal to inspection, No distended and Yes obesity Palpation (GI): Soft to palpation, not firm, nontender and No hepatosplenomegaly present Auscultation: normal bowel sounds General: Yes no CVA tenderness Back/Spine/Pelvis Back: no CVA tenderness Skin General skin exam: elasticity normal, turgor normal and dry skin Neuro General: patient oriented x3 Psych Appearance: grossly normal Mental Status: mental status grossly normal Speech and movement: Normal speech and movement present Assessment & Plan Assessment & Plan (1) GERD (gastroesophageal reflux disease): Code(s): K21.9 - Gastro-esophageal reflux disease without esophagitis Qualifiers: Esophagitis presence: esophagitis presence not specified Qualified Code(s): K21.9 - Gastro-esophageal reflux disease without esophagitis Plan: Continue omeprazole daily and famotidine at bedtime. Continue avoiding dietary triggers like 10 snacking. Staying upright for minimum 3 hours after meals discussed with patient. (2) Pancreatic insufficiency: Code(s): K86.89 - Other specified diseases of pancreas Plan: Creon not on patient's medication list however patient reports that she is taking it. We will order Creon so she can continue taking it with meals up to 4 times a day (3) Diarrhea: Code(s): R19.7 - Diarrhea, unspecified Qualifiers: Diarrhea type: functional diarrhea Qualified Code(s): K59.1 - Functional diarrhea Plan: Continue cholestyramine. Patient will avoid food high in fat and fried. I will see her in 6 months, sooner on as needed basis. Patient is agreeable to this plan and verbalizes understanding of instructions. She was given the opportunity to ask questions and all questions answered. Thank you for allowing me to participate in her care Medications: New [id number] 36,000-114,000- 180,000 unit (Creon) administer with meals and/or snacks 1 cap PO QID 120 caps 5RF K86.89 - Other specified diseases of pancreas Refilled bisacodyl (Dulcolax (bisacodyl)) 10 mg (2 x 5 mg) PO BEDTIME 180 tabs 4RF cholestyramine-aspartame 4 gram (Cholestyramine Light) administer w/meal; avoid other meds within 1hr before or 4-6hr after dose 4 grams PO BID 231 grams 3RF Coding Level of Care Code Est Pt Level 4 (28210) Diagnoses Gastroesophageal reflux disease, unspecified whether esophagitis present K21.9 Esophagitis presence: esophagitis presence not specified Pancreatic insufficiency K86.89 Functional diarrhea K59.1 Diarrhea type: functional diarrhea Time Spent (min) 35 Comment 25 minutes spent with patient and additional 10 minutes spent reviewing her records
== END 2023-04-11 09:03 | disposition home or self-care (01) ==
PROVIDERS: PCP Internal Medicine; Visit Provider Nurse Practitioner Family
DX: K21.9 Gastro-esophageal reflux disease without esophagitis (principal); K86.89 Other specified diseases of pancreas; K59.1 Functional diarrhea
CPT/HCPCS: 99214

== ENCOUNTER → 2023-04-11 07:45 | Outpatient (BNVA) | payer OTHER, SELFPAY | PROVIDERS: PCP Internal Medicine; Visit Provider Nurse Practitioner Family | DX: K21.9 Gastro-esophageal reflux disease without esophagitis (principal); K86.89 Other specified diseases of pancreas; K59.1 Functional diarrhea | CPT/HCPCS: 99212 ==

== ENCOUNTER 2023-04-16 11:20 | Outpatient (AMB) | payer OTHER, SELFPAY ==
--- NOTE | 2023-04-16 12:38 | MHC.OFFWIV ---
Intake Vital Signs 04/16/23 12:39 Height 5 ft 3 in Weight 176 lb BMI 31.2 BP 110/70 Blood Pressure Location Rt brachial Position Sitting Pulse 92 Pulse Source Pulse Oximeter Temp 98.0 F Temp Source Temporal Artery Scan Pulse Oximetry (%) 97 Intake Visit Reasons: EST/ear/throat pain Intake Note: pt is here for c/o ear and throat pain, cough, ear discomfort Patient Tobacco Use Status: Former Tobacco user Quit Date: 1 year ago Allergies aspirin Allergy (Intermediate, Verified 04/16/23 12:40) rash latex [LATEX] Allergy (Mild, Verified 04/16/23 12:40) HIVES/RASH Penicillins Allergy (Mild, Verified 04/16/23 12:40) unknown amoxicillin Adverse Reaction (Intermediate, Verified 04/16/23 12:40) diarrhea Beef Containing Products Adverse Reaction (Intermediate, Verified 04/16/23 12:40) DIARRHEA/VOMITING Red Meats And Seafood Allergy (Intermediate, Uncoded 04/11/23 07:56) inflammation and swelling Do you need a note to return to daycare/school/sports/work: Yes HPI EST/ear/throat pain HPI Details Patient is a 52-year-old female who comes to the walk-in clinic complaining of runny nose, sore throat, cough and ear pain for the last few days. She states that her COVID test at home was negative, and that she has no known sick contacts. She does have a history of baseline asthma, and states that she has been using her albuterol pump and nebulizer regularly with temporary decreased cough. She denies shortness of breath, but does report some upper chest burning sensation from the cough. She has been drinking honey and lemon tea and taking hypa-xkl-jyfvngh medication with limited relief. She states that the cough is starting to keep her awake at night, as it makes going to sleep difficult. No fever or chills, nausea vomiting or diarrhea, weakness or dizziness, malaise or myalgias, sinus pressure, productive phlegm, or other significant associated symptoms [facility] Medical History Microhematuria Candidiasis Tubular adenoma Controlled diabetes mellitus type II without complication Diarrhea Lower thoracic back pain Pancreatic insufficiency Pelvic pain Mild intermittent asthma Depression with anxiety COVID-19 vaccination declined Decreased hearing of right ear Tinnitus of right ear Arthritis Mixed stress and urge incontinence GERD (gastroesophageal reflux disease) Type 2 diabetes mellitus with microalbuminuria, with long-term current use of insulin B12 deficiency Non-toxic multinodular goiter Dyslipidemia Obesity (BMI 30-39.9) Restless leg syndrome Vertigo Fibromyalgia Anxiety Surgical History H/O thyroidectomy Hx of BSO (bilateral salpingo-oophorectomy) Hx of laparoscopy Hx of colonoscopy History of esophagogastroduodenoscopy (EGD) Hx of appendectomy Hx of cholecystectomy Hx of section Family History Father Diabetes mellitus Heart murmur Mother Diabetes mellitus HTN (hypertension) Glaucoma Melanoma Social History Household Members: Family Housing: House Do you presently have visiting nurse or other home services: Yes Alcohol intake: never Patient Tobacco Use Status: Former Tobacco user Quit Date: 1 year ago Tobacco use type: Cigarette Cigarettes Per Day: 5 Years Smoked: 34 e-Cigarette/Vaping Use: Currently Using Advance Directives Date on File: 06/21/22 service: No Current occupational status: unemployed Sexual orientation: Straight/Heterosexual Gender identity: Female Cognitive needs: No Hearing needs: No Vision needs: No Review of Systems Const All systems reviewed & are unremarkable except as noted in HPI and below Physical Exam Vital Signs: Last Vital Signs Temp 98.0 F 04/16/23 12:39 Pulse 92 04/16/23 12:39 BP 110/70 04/16/23 12:39 Pulse Ox 97 04/16/23 12:39 BMI result Body Mass Index 31.2 Const General: cooperative, healthy appearing, comfortable, no acute distress, alert, awake, Physically active and well groomed; No anxious, diaphoretic, ill appearing, intoxicated appearing, poor hygiene or tired appearing Nutritional Appearance: average body habitus Orientation/consciousness: oriented to person Limitations: no limitations Neck Neck: Yes trachea midline Resp Effort & Inspection: normal respiratory effort, able to speak in complete sentences, no audible wheezes, Actively coughing Quality: dry, no grunting, not labored, no nasal flaring, no respiratory distress, no retractions, no segmental paradox chest wall movement, no stridor, not tachypneic, no tripod positioning, no use of accessory muscles, No prolonged expiratory phase and symmetric chest movement Auscultation: clear to auscultation bilaterally, no crackles, no rales, no rhonchi, no wheezes and No rub present Cardio Rate: regular rate Rhythm: regular rhythm Skin Other: Good color, warm and dry Neuro General: oriented to person Psych Appearance: grossly normal Mental Status: mental status grossly normal Speech and movement: Normal speech and movement present Affect: normal affect Attitude: cooperative Thought process: Normal thought process present Insight: Good insight present (Psych) Judgement: Good judgement present (Psych) Results AMB Rapid Strep AMB Rapid Strep Negative Last Edit by Seven Gustafson CMA on 04/16/23 12:56 Results Reviewed Results Reviewed: Laboratory Last Values Strep Scn Rapid Clinic Negative 04/16/23 12:55 Assessment & Plan Assessment & Plan (1) Upper respiratory infection: Code(s): J06.9 - Acute upper respiratory infection, unspecified Qualifiers: URI type: unspecified viral URI Qualified Code(s): J06.9 - Acute upper respiratory infection, unspecified Plan: Patient is a 52-year-old female who has asthma and has an apparent viral URI that is exacerbating her asthma. She is overall stable and has respiratory distress. Her oxygen saturation is good, and she is not currently wheezing, she does have a reactive type active cough during exam. Her rapid strep test is negative. She is pending respiratory panel to rule out flu COVID and RSV, however initial COVID testing was negative. We discussed continuing supportive care, and who her for a course of Tessalon Perles as well as course of azithromycin, as she has respiratory infection the setting of asthma, which is starting in the low her respiratory tract, causing possible early tracheobronchitis. She should follow up if symptoms persist or worsen, and go to emergency department for worrisome symptoms. (2) Otitis media: Code(s): H66.90 - Otitis media, unspecified, unspecified ear Qualifiers: Chronicity: acute Laterality: left Otitis media type: suppurative Recurrence: non-recurrent Spontaneous tympanic membrane rupture: without spontaneous rupture Qualified Code(s): H66.002 - Acute suppurative otitis media without spontaneous rupture of ear drum, left ear Plan: Left otitis media that is only mildly erythrmatous today but symptomatic for her in setting of URI. She was started on azithromycin, which should also help clear this. Orders: Orders SARS-CoV2/FLU/RSV 04/16/23 R05.9 - Cough, unspecified AMB Rapid Strep Screen 04/16/23 Z13.9 - Encounter for screening, unspecified Medications: New azithromycin take 500 mg today (day 1), then 250 mg for 4 days (days 2-5) PO 6 tabs 0RF benzonatate 200 mg PO BID-TID PRN 30 caps 0RF cough Refilled albuterol sulfate 2.5 mg (3 mL) inhalation QID PRN 75 mL 0RF shortness of breath or wheezing albuterol sulfate 90 mcg/actuation (ProAir HFA) 2 puffs inhalation Q6H PRN 18 grams 5RF shortness of breath or wheezing J45.909 - Unspecified asthma, uncomplicated Coding Level of Care Code Est Pt Level 4 (69228) Diagnoses Viral upper respiratory tract infection J06.9 URI type: unspecified viral URI Non-recurrent acute suppurative otitis media of left ear without spontaneous rupture of tympanic membrane H66.002 Chronicity: acute Laterality: left Otitis media type: suppurative Recurrence: non-recurrent Spontaneous tympanic membrane rupture: without spontaneous rupture
[2023-04-16 12:39] VITALS: BP 110/70; PULSE 92; TEMP 36.7; O2SAT 97; BMI 31.2
== END 2023-04-16 13:42 | disposition home or self-care (01) ==
PROVIDERS: PCP Internal Medicine; Visit Provider Physician Assistant Medical
DX: J06.9 Acute upper respiratory infection, unspecified (principal); H66.002 Acute suppurative otitis media without spontaneous rupture of ear drum, left ear; J02.9 Acute pharyngitis, unspecified
CPT/HCPCS: 87880; 99214

== ENCOUNTER 2023-04-16 13:59 | Outpatient (REF) | payer OTHER, SELFPAY ==
[2023-04-16 17:32] LABS: Influenza A PCR NEGATIVE (Negative); Influenza B PCR NEGATIVE (Negative); Resp Syncy Virus RNA Qual PCR NEGATIVE (Negative); SARS COV2 PCR INHOUSE NEGATIVE (Negative)
== END 2023-04-16 14:00 | disposition home or self-care (01) ==
LOC: HO.LAB 13:59
PROVIDERS: Visit Provider Physician Assistant Medical
DX: R05.9 Cough, unspecified (principal); Z20.822 Contact with and (suspected) exposure to COVID-19
CPT/HCPCS: 0241U

== ENCOUNTER 2023-04-26 06:08 | Outpatient (REF) | payer OTHER, SELFPAY ==
[2023-04-26 07:32] LABS: Estimated Average Glucose 97 mg/dL; Hemoglobin A1C 93.8107 umol/L
[2023-04-26 07:41] LABS: Alanine Aminotransferase 15 U/L (0-31); Anion Gap 14 (12-20); Aspartate Amino Transferase 16 U/L (5-31); Blood Urea Nitrogen 8 mg/dL (9-16); Calcium 9.9 mg/dL (8.4-10.2); Carbon Dioxide 24 mmol/L (22-29); Chloride 107 mmol/L (96-108); Cholesterol 151 mg/dL (<200); Estimated Glomerular Filt Rate > 60; Glucose Fasting 94 mg/dL (60-99); HDL Cholesterol 39 mg/dL (>40); LDL Cholesterol Calculated 86 mg/dL (<100); Potassium 3.5 mmol/L (3.3-5.1); Sodium 141 mmol/L (135-145); Triglycerides 134 mg/dL (<150)
== END 2023-04-26 06:09 | disposition home or self-care (01) ==
LOC: HO.LAB 06:08
PROVIDERS: PCP Internal Medicine; Visit Provider Internal Medicine
DX: E11.29 Type 2 diabetes mellitus with other diabetic kidney complication (principal); R80.9 Proteinuria, unspecified; Z79.4 Long term (current) use of insulin; E78.5 Hyperlipidemia, unspecified; E66.9 Obesity, unspecified; M54.6 Pain in thoracic spine
CPT/HCPCS: 36415; 80048; 80061; 83036; 84450; 84460

== ENCOUNTER 2023-04-27 10:39 | Outpatient (AMB) | payer OTHER, SELFPAY ==
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
== END 2023-04-27 11:54 | disposition home or self-care (01) ==
PROVIDERS: PCP Internal Medicine; Referring Provider Internal Medicine; Visit Provider Nurse Practitioner Family
DX: R31.29 Other microscopic hematuria (principal); F17.200 Nicotine dependence, unspecified, uncomplicated; R39.9 Unspecified symptoms and signs involving the genitourinary system; R39.15 Urgency of urination; R35.0 Frequency of micturition; R35.1 Nocturia; R39.89 Other symptoms and signs involving the genitourinary system
CPT/HCPCS: 99204

== ENCOUNTER → 2023-04-27 10:39 | Outpatient (BNVA) | payer OTHER, SELFPAY | PROVIDERS: PCP Internal Medicine; Referring Provider Internal Medicine; Visit Provider Nurse Practitioner Family | DX: I48.92 Unspecified atrial flutter (principal); Z51.81 Encounter for therapeutic drug level monitoring; Z79.01 Long term (current) use of anticoagulants | CPT/HCPCS: 51798; 81003 ==

== ENCOUNTER 2023-05-02 11:29 | Outpatient (AMB) | payer OTHER, SELFPAY ==
--- NOTE | 2023-05-02 12:34 | MHC.PC.OV ---
Vital Signs 05/02/23 12:41 Height 5 ft 3 in Weight 173 lb BMI 30.6 BP 108/78 Blood Pressure Location Lt brachial Position Sitting Pulse 89 Pulse Source Pulse Oximeter Pulse Oximetry (%) 98 Oxygen Delivery Method Room Air Intake Visit Reasons: 4 month F/U Lipids,DM, HTN, per AE Intake Note: Pt is here today for her 4 mo. f/u lipids, DM, HTN Allergies aspirin Allergy (Intermediate, Verified 05/02/23 12:57) rash latex [LATEX] Allergy (Mild, Verified 05/02/23 12:57) HIVES/RASH Penicillins Allergy (Mild, Verified 05/02/23 12:57) unknown amoxicillin Adverse Reaction (Intermediate, Verified 05/02/23 12:57) diarrhea Beef Containing Products Adverse Reaction (Intermediate, Verified 05/02/23 12:57) DIARRHEA/VOMITING [employer] Seafood Allergy (Intermediate, Uncoded 05/02/23 12:57) inflammation and swelling Medication List - Last Reconciled 05/02/23 by Mali Nova MD [incontinence pad As directed 4 times a day as needed] albuterol sulfate 2.5 mg (3 mL) inhalation QID PRN albuterol sulfate 90 mcg/actuation (ProAir HFA) 2 puffs inhalation Q6H PRN alcohol swabs (Alcohol Prep Pads) 1 pad topical TID amitriptyline 50 mg PO BEDTIME benzonatate 200 mg PO BID-TID PRN bisacodyl (Dulcolax (bisacodyl)) 10 mg (2 x 5 mg) PO BEDTIME blood sugar diagnostic (FreeStyle Lite Strips) test blood sugar 3 times per day blood-glucose meter (FreeStyle Lite Meter kit) As directed ecxxdviggp-zfhpspcxzvare-hkse 50-300-40 mg (Fioricet) 1 cap PO Q8H PRN [cane with quad tips use as directed] cetirizine 10 mg PO DAILY cholecalciferol (vitamin D3) 25 mcg PO DAILY cholestyramine-aspartame 4 gram (Cholestyramine Light) 4 grams PO BID clonazepam 1 mg PO BID PRN duloxetine 30 mg PO BID ezetimibe 10 mg PO BEDTIME fluticasone propion-salmeterol 250-50 mcg/dose (Advair Diskus) 1 inh inhalation BID fluticasone propionate 50 mcg/actuation 1 spray intranasal DAILY PRN gabapentin 400 mg PO TID 30 days ibuprofen 600 mg PO Q6H PRN insulin degludec (Tresiba FlexTouch U-100 insulin) 18 units (0.18 mL) subcut BEDTIME 90 days lancets (FreeStyle Lancets) test blood sugar 3 times per day muzlbw-jayinsep-vklgxgv 36,000-114,000- 180,000 unit (Creon) 1 cap PO QID meclizine 12.5 mg PO DAILY PRN metformin ER 750 mg PO BID 90 days methyl salicylate-menthol 10-3 % (Salonpas (methyl salicylate-menthol)) 1 patch topical Q8-12H PRN methylcellulose (laxative) (Citrucel) 500 mg PO DAILY mirabegron ER (Myrbetriq) 25 mg PO DAILY 30 days nortriptyline 25 mg PO BEDTIME omeprazole 20 mg PO DAILY@0630 ondansetron 4 mg PO DAILY PRN pen needle, diabetic (BD Vanessa 2nd Gen Pen Needle) Use to inject insulin once a day ropinirole 0.5 mg PO BEDTIME tizanidine 4 mg PO TID PRN topiramate 100 mg PO BID Trulicity (dulaglutide) 3 mg (0.5 mL) subcut FR@1000 NS zolpidem 10 mg PO BEDTIME PRN Tobacco use date assessed: 05/02/23 Dental Screening Dental Screen Date: 05/02/23 Did you have a dental visit in the last 12 months?: Yes Did you have a dental problem in the last 6 months where you did not have access to dental care?: No Was dental information given to patient?: Patient has dentist HPI 4 month F/U Lipids,DM, HTN, per AE HPI Details 52-year-old lady with hypertension, diabetes mellitus and dyslipidemia, here today for follow-up. Blood Pressure and blood sugar levels have been stable and controlled on present treatment. She has been feeling well with no complaints at present time. Reminded to get her flu shot, but does not want to get a COVID vaccine [facility] Medical History Microhematuria Candidiasis Tubular adenoma Controlled diabetes mellitus type II without complication Diarrhea Lower thoracic back pain Pancreatic insufficiency Pelvic pain Mild intermittent asthma Depression with anxiety COVID-19 vaccination declined Decreased hearing of right ear Tinnitus of right ear Arthritis Mixed stress and urge incontinence GERD (gastroesophageal reflux disease) Type 2 diabetes mellitus with microalbuminuria, with long-term current use of insulin B12 deficiency Non-toxic multinodular goiter Dyslipidemia Obesity (BMI 30-39.9) Restless leg syndrome Vertigo Fibromyalgia Anxiety Surgical History H/O thyroidectomy Hx of BSO (bilateral salpingo-oophorectomy) Hx of laparoscopy Hx of colonoscopy History of esophagogastroduodenoscopy (EGD) Hx of appendectomy Hx of cholecystectomy Hx of section Family History Father Diabetes mellitus Heart murmur Mother Diabetes mellitus HTN (hypertension) Glaucoma Melanoma Social History Household Members: Family Housing: House Do you presently have visiting nurse or other home services: Yes Alcohol intake: never Patient Tobacco Use Status: Former Tobacco user Quit Date: 1 year ago Tobacco use type: Cigarette Cigarettes Per Day: 5 Years Smoked: 34 e-Cigarette/Vaping Use: Never Used Advance Directives Date on File: 06/21/22 service: No Current occupational status: unemployed Sexual orientation: Straight/Heterosexual Gender identity: Female Cognitive needs: No Hearing needs: No Vision needs: No Questionnaire Thrive Questionnaire Date Thrive assessed: 06/21/22 NANCY-7 AMB Questionnaire NANCY-7 Date NANCY - 7 assessed: 06/21/22 Source: Developed by Drs. Umair Drew, Amber Up, Glynn Benson and colleagues, with an educational pola from [employer]. Review of Systems Const Reports no additional complaints and Denies headache(s) Eyes Denies change in vision ENT Denies dysphagia, Denies headache(s), Denies hearing loss, Denies mouth lesions, Denies mouth pain, Denies nasal congestion, Denies nasal obstruction and Denies odynophagia Card Denies chest pain at rest, Denies chest pain with activity and Denies irregular heart rhythm Resp Reports no additional complaints GI Denies abdominal pain, Denies belching, Denies melena, Denies bloating, Denies change in bowel habits, Denies dysphagia, Denies excessive flatus, Denies dyspepsia, Denies heartburn, Denies diarrhea, Denies loose stools, Denies nausea, Denies odynophagia and Denies vomiting Denies hematuria, Denies urinary frequency, Denies difficulty voiding, Denies nocturia, Reports urinary incontinence (Occasional) and Denies urinary urgency Musc Reports as per HPI Skin/Breast Denies breast pain and Denies breast mass Neuro Reports no additional complaints and Denies headache(s) Psych Reports no additional complaints Endo Reports no additional complaints Jacek/Lymph Reports no additional complaints Aller/Immun Reports no additional complaints Physical exam (Primary Care) Vital Signs: Last Vital Signs Pulse 89 05/02/23 12:41 BP 108/78 05/02/23 12:41 Pulse Ox 98 05/02/23 12:41 Oxygen Delivery Method Room Air 05/02/23 12:41 BMI result Body Mass Index 30.6 Tobacco/Smoking Status: Tobacco use Status Tobacco use date assessed 05/02/23 05/02/23 12:35 Patient Tobacco Use Status Former Tobacco user 05/02/23 12:35 Tobacco use type Cigarette 05/02/23 12:35 e-Cigarette/Vaping Use Never Used 05/02/23 12:48 Thrive Assessment: Date of Thrive Assessment Date Thrive assessed 06/21/22 05/02/23 12:35 Const General: comfortable and no acute distress Orientation/consciousness: patient oriented x3 HENMT Mouth: moist mucous membranes Neck Neck: Yes full ROM, Yes no lymphadenopathy and Yes supple Resp Effort & Inspection: normal respiratory effort and able to speak in complete sentences Auscultation: clear to auscultation bilaterally Cardio Other: S1-S2 present regular rate and rhythm GI Inspection: Yes obesity Palpation (GI): Soft to palpation, no guarding and no masses General: Yes no CVA tenderness Back/Spine/Pelvis Back: no CVA tenderness Skin General skin exam: no rashes or lesions noted Neuro General: patient oriented x3, gait normal, tone normal, moves all extremities, Normal light touch and pain sensation, no focal motor deficits, CN's II-XI intact bilaterally and normal sensation to monofilament Extrem General: Yes full ROM, Yes no joint enlargement, Yes no clubbing, cyanosis or edema and Yes normal gait Results Reviewed Results Reviewed: mason: Demi Lundberg Age/Sex: 52/F : 1970 Unit#: [id number] Attend Dr: Mali Nova MD Re04/26/23 Status: DEP REF [facility] Disch: SPEC : [id number] COLBY: 04/26/23 STATUS: COMP REQ : [id number] RECD: 04/26/[address]: Mali Nova MD COMP: 04/26/23 ENTERED: 04/26/23 [facility] DR: ORDERED: Met Prof Fast, AST, ALT, Lipid Panel Test Result Flag Reference Site Sodium 141 135-145 mmol/L Potassium 3.5 3.3-5.1 mmol/L CL 107 96-108 mmol/L CO2 24 22-29 mmol/L Gap 14 12-20 BUN 8 L 9-16 mg/dL Creat 0.80 0.5-1.4 mg/dL EGFR > 60 NOTE: For -Scottish individuals, multiply the result by 1.210. Chronic Kidney Disease: Estimated GFR < 60 mL/min/1.73m2 Severe Kidney Disease: Estimated GFR < 15 mL/min/1.73m2 FBS 94 60-99 mg/dL CA 9.9 8.4-10.2 mg/dL AST (GOT) 16 5-31 U/L ALT (GPT) 15 0-31 U/L Triglyceride 134 <150 mg/dL Desirable Triglyceride: less than 150 mg/dL Borderline High Triglyceride 150-199 mg/dL High Triglyceride: 200-499 mg/dL Very High Triglyceride: greater than or equal to 5OO mg/dL Cholesterol 151 <200 mg/dL Desirable Cholesterol: less than 200 mg/dL Borderline High Cholesterol: 200-239 mg/dL High Cholesterol: greater than 239 mg/dL LDL Calculated 86 <100 mg/dL Desirable LDL: less than 100 mg/dL Near Optimal/Above Optimal LDL: 110-129 mg/dL Borderline High LDL: 130-159 mg/dL High LDL: 160-189 mg/dL Very High LDL: greater than or equal to 190 mg/dL HDL 39 L >40 mg/dL Desirable HDL: greater than 40 mg/dL Laboratory Tests 04/26/23 06:27 Estimat Average Glucose 97 Hemoglobin A1c % 5.0 Assessment and Plan Assessment & Plan (1) Controlled diabetes mellitus type II without complication: Code(s): E11.9 - Type 2 diabetes mellitus without complications Qualifiers: 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 Continue with current treatment, and get diabetes retinopathy screening done yearly, continue with adherence to healthy eating habits and getting regular exercise. Reminded to get her flu shot , which patient states she will be getting later this month but does not want to get COVID vaccine (2) Dyslipidemia: Code(s): E78.5 - Hyperlipidemia, unspecified Plan: Reviewed recent fasting lipid profile with patient with levels within normal limits . Continue with ezetimibe 10 mg daily , in addition to adherence to low-cholesterol diet and regular exercise, at least 30 minutes 3 to 4 times a week. Advised patient to make healthy food choices, eat more fruits, vegetables, whole grains, wild caught fish and low-fat dairy. Limit amount of meat and fried or fatty food products, as well as processed foods and fast foods. Follow-up scheduled with repeat fasting lipid panel in months. (3) Obesity (BMI 30-39.9): Code(s): E66.9 - Obesity, unspecified Plan: Recommended focusing on improving health instead of dieting. Mediterranean diet is a healthy diet that helps, limit food high in fat, sugar, and calories. Eat slowly, pay attention to portion sizes, plan your meals ahead of time, start regular physical activity, at least 150 minutes of moderate intensity exercise, or 90 minutes per week of vigorous exercise. Keeping a food diary, tracking what you eat and your physical activity can help assess what improvements you can make. There are many health problems associated with being overweight/obese, so it is important to improve your diet and exercise. There are medications and surgical options available, but Lifestyle changes are the 1st step. Orders: Orders Lipid Panel 6 Months E11.9 - Type 2 diabetes mellitus without complications, E66.9 - Obesity, unspecified, E78.5 - Hyperlipidemia, unspecified Basic Metabolic Panel Fasting 6 Months E11.9 - Type 2 diabetes mellitus without complications, E66.9 - Obesity, unspecified, E78.5 - Hyperlipidemia, unspecified Alanine Aminotransferase 6 Months E11.9 - Type 2 diabetes mellitus without complications, E66.9 - Obesity, unspecified, E78.5 - Hyperlipidemia, unspecified Aspartate Amino Transferase 6 Months E11.9 - Type 2 diabetes mellitus without complications, E66.9 - Obesity, unspecified, E78.5 - Hyperlipidemia, unspecified Hemoglobin A1c 6 Months E11.9 - Type 2 diabetes mellitus without complications, E66.9 - Obesity, unspecified, E78.5 - Hyperlipidemia, unspecified Microalbumin, Random (w Creat) 6 Months E11.9 - Type 2 diabetes mellitus without complications, E66.9 - Obesity, unspecified, E78.5 - Hyperlipidemia, unspecified Vitamin D 25-OH Total 6 Months E11.9 - Type 2 diabetes mellitus without complications, E66.9 - Obesity, unspecified, E78.5 - Hyperlipidemia, unspecified Medications: Refilled Trulicity (dulaglutide) 3 mg (0.5 mL) subcut FR@1000 2 mL 5RF NS E11.29 - Type 2 diabetes mellitus with other diabetic kidney complication, R80.9 - Proteinuria, unspecified, Z79.4 - care home (current) use of insulin Coding Level of Care Code Est Pt Level 4 (60351) Diagnoses Controlled type 2 diabetes mellitus without complication, with long-term current use of insulin E11.9; Z79.4 Diabetes mellitus retirement insulin use: with retirement use Dyslipidemia E78.5 Obesity (BMI 30-39.9) E66.9
[2023-05-02 12:41] VITALS: BP 108/78; PULSE 89; O2SAT 98; BMI 30.6
== END 2023-05-02 13:52 | disposition home or self-care (01) ==
PROVIDERS: PCP Internal Medicine; Visit Provider Internal Medicine
DX: E11.9 Type 2 diabetes mellitus without complications (principal); Z79.4 Long term (current) use of insulin; E66.9 Obesity, unspecified; Z68.30 Body mass index [BMI] 30.0-30.9, adult; E78.5 Hyperlipidemia, unspecified
CPT/HCPCS: 99214

== ENCOUNTER 2023-06-03 08:54 | Outpatient (AMB) | payer OTHER, SELFPAY ==
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
== END 2023-06-03 11:25 | disposition home or self-care (01) ==
PROVIDERS: PCP Internal Medicine; Visit Provider Urology
DX: R30.0 Dysuria (principal); R39.15 Urgency of urination; F17.200 Nicotine dependence, unspecified, uncomplicated; Z13.9 Encounter for screening, unspecified
CPT/HCPCS: 52000; 99213

== ENCOUNTER 2023-06-03 08:54 | Outpatient (REF) | payer OTHER, SELFPAY ==
[2023-06-03 16:35] LABS: Urine Cytology See Pathology rpt
== END 2023-06-03 08:55 | disposition home or self-care (01) ==
LOC: HO.LAB 08:54
PROVIDERS: PCP Internal Medicine; Visit Provider Urology
DX: R31.29 Other microscopic hematuria (principal); R39.9 Unspecified symptoms and signs involving the genitourinary system; R39.15 Urgency of urination; R35.1 Nocturia; R30.0 Dysuria; F17.200 Nicotine dependence, unspecified, uncomplicated; Z71.6 Tobacco abuse counseling
CPT/HCPCS: 52000; 81003; 88112; 99212

== ENCOUNTER 2023-06-08 08:36 | Outpatient (REF) | payer OTHER, SELFPAY ==
--- NOTE | ~2023-06-08 | CT_ITS ---
EXAMINATION: CT ABDOMEN AND PELVIS WITHOUT AND WITH CONTRAST CLINICAL INFORMATION: Gross hematuria COMPARISON: Previous CT of the abdomen and pelvis February 2023 TECHNIQUE: Noncontrast CT of the abdomen and pelvis is performed followed by split bolus contrast-enhanced images using 85 mL Omnipaque 350 contrast.? Postcontrast imaging is performed during the combined nephrogram and excretion phase. Sagittal and coronal reformatted images were obtained on the technologist's workstation for both the precontrast and postcontrast phases. Additional delayed images of the bladder were performed for better opacification with excreted contrast. This CT examination was performed using dose optimization techniques as appropriate, variously including the following: *Automated exposure control *Adjustment of mA and/or kV according to patient size (this includes techniques or standardized protocols for targeted exams where dose is matched to indication/reason for exam; i.e. extremities or head) *Use of iterative reconstruction technique DLP: 8 9 2 mGy-cm FINDINGS: LUNG BASES: The visualized lung bases are unremarkable. LIVER, GALLBLADDER, AND BILIARY TREE: The liver is normal in size, shape, and attenuation. No focal hepatic lesion or biliary ductal dilatation is present. The gallbladder has been removed. PANCREAS: Unremarkable. SPLEEN: Unremarkable. ADRENAL GLANDS: Unremarkable. KIDNEYS AND URETERS: The kidneys are normal in size, shape, and attenuation. No hydronephrosis, hydroureter, or calculi seen. No perinephric stranding. BLADDER: Limited evaluation of the bladder due to lack of excreted contrast. Additional delayed images of the bladder were performed. No bladder abnormality seen. GASTROINTESTINAL TRACT: Mild diverticulosis of the colon. The small and large bowel are otherwise unremarkable. The appendix is not seen. ABDOMINAL WALL: Small ventral hernias containing fat. LYMPH NODES: Normal. VASCULAR: Unremarkable. PELVIC VISCERA: Multiple small calcified fibroids. No adnexal mass. OSSEUS STRUCTURES: Unremarkable. CT/CT urogram IMPRESSION: No cause of hematuria seen. Bladder not optimally evaluated due to lack of excreted contrast but appears unremarkable. Mild diverticulosis of the colon. Small uterine calcifications probably representing fibroids.
[2023-06-08] MEDS: iohexoL 350 MG/ML 100 ML INFUS..BTL IV (09:29)
== END 2023-06-08 08:37 | disposition home or self-care (01) ==
LOC: HO.CT 08:36
PROVIDERS: PCP Internal Medicine; Visit Provider Nurse Practitioner Family
DX: R31.0 Gross hematuria (principal)
CPT/HCPCS: 74178; Q9967

== ENCOUNTER 2023-06-10 08:20 | Outpatient (AMB) | payer OTHER, SELFPAY ==
--- NOTE | 2023-06-10 08:44 | MHC.OFFWIV ---
Intake Vital Signs 06/10/23 08:49 Height 5 ft 3 in Weight 168 lb 2 oz BMI 29.8 BP 110/78 Blood Pressure Location Rt brachial Position Sitting Pulse 93 Pulse Source Pulse Oximeter Temp 97.8 F Temp Source Temporal Artery Scan Pulse Oximetry (%) 96 Oxygen Delivery Method Room Air Intake Visit Reasons: EST/sore throat/infection on legs(lobby masked) Intake Note: pt is here for c/o sore throat, sinus pain and chest congestion Patient Tobacco Use Status: Former Tobacco user Quit Date: 1 year ago Allergies aspirin Allergy (Intermediate, Verified 06/10/23 08:50) rash latex [LATEX] Allergy (Mild, Verified 06/10/23 08:50) HIVES/RASH Penicillins Allergy (Mild, Verified 06/10/23 08:50) unknown amoxicillin Adverse Reaction (Intermediate, Verified 06/10/23 08:50) diarrhea Beef Containing Products Adverse Reaction (Intermediate, Verified 06/10/23 08:50) DIARRHEA/VOMITING [employer] Allergy (Intermediate, Uncoded 05/02/23 12:57) inflammation and swelling Do you need a note to return to daycare/school/sports/work: Yes HPI HPI Comments History of Present Illness Details This is a 52-year-old female who presents to the office today for sick visit. Patient complaining of viral URI symptoms for the past 3 days. Patient reports nasal/chest congestion, dry cough, sore throat, and rhinorrhea for the past 3 days. She denies any fevers or chills. She denies any chest pain. She denies any shortness of breath. She denies any abdominal pain or nausea/vomiting/diarrhea. [facility] Medical History Microhematuria Candidiasis Tubular adenoma Controlled diabetes mellitus type II without complication Diarrhea Lower thoracic back pain Pancreatic insufficiency Pelvic pain Mild intermittent asthma Depression with anxiety COVID-19 vaccination declined Decreased hearing of right ear Tinnitus of right ear Arthritis Mixed stress and urge incontinence GERD (gastroesophageal reflux disease) Type 2 diabetes mellitus with microalbuminuria, with long-term current use of insulin B12 deficiency Non-toxic multinodular goiter Dyslipidemia Obesity (BMI 30-39.9) Restless leg syndrome Vertigo Fibromyalgia Anxiety Surgical History H/O thyroidectomy Hx of BSO (bilateral salpingo-oophorectomy) Hx of laparoscopy Hx of colonoscopy History of esophagogastroduodenoscopy (EGD) Hx of appendectomy Hx of cholecystectomy Hx of section Family History Father Diabetes mellitus Heart murmur Mother Diabetes mellitus HTN (hypertension) Glaucoma Melanoma Social History Household Members: Family Housing: House Do you presently have visiting nurse or other home services: Yes Alcohol intake: never Patient Tobacco Use Status: Former Tobacco user Quit Date: 1 year ago Tobacco use type: Cigarette Cigarettes Per Day: 5 Years Smoked: 34 e-Cigarette/Vaping Use: Never Used Advance Directives Date on File: 06/21/22 service: No Current occupational status: unemployed Sexual orientation: Straight/Heterosexual Gender identity: Female Cognitive needs: No Hearing needs: No Vision needs: No Review of Systems Const All systems reviewed & are unremarkable except as noted in HPI and below Reports no additional complaints Eyes Reports no additional complaints ENT Reports no additional complaints Card Reports no additional complaints Resp Reports no additional complaints GI Reports no additional complaints Reports no additional complaints Musc Reports no additional complaints Skin/Breast Reports system reviewed and no additional complaints, except as documented Neuro Reports no additional complaints Psych Reports no additional complaints Endo Reports no additional complaints Jacek/Lymph Reports no additional complaints Aller/Immun Reports no additional complaints Physical Exam Const Other: Vital signs reviewed. Constitutional: Non-toxic appearing. No acute distress. Well-developed and well-nourished. HEENT: Normocephalic and atraumatic. Tympanic membranes without erythema, edema, or bulging bilaterally. External auditory canals without erythema or edema bilaterally. Moist mucous membranes. Mild posterior pharyngeal erythema but no exudates. Skin: Small abrasions noted on patient's anterior shins without surrounding erythema or purulence drainage. No induration or fluctuance. Neck: Full and painless range of motion. No cervical lymphadenopathy. Cardio: Regular rate and rhythm. No murmurs, gallops, or rubs. No lower extremity edema. No JVD. Pulmonary: No respiratory distress. No accessory muscle usage. Clear to auscultation bilaterally without wheezing, crackles, or rhonchi. Gastrointestinal: Soft, nontender, and nondistended in all 4 quadrants. Normoactive bowel sounds in all 4 quadrants. Genitourinary: No CVA tenderness. Musculoskeletal: Normal range of motion in joints throughout the body. No deformity or other signs of injury. Neuro: Alert and oriented x4. Cranial nerves 2-12 grossly intact. No focal deficits appreciated. Psych: Normal mood and affect. Assessment & Plan Assessment & Plan (1) Viral URI with cough: Code(s): J06.9 - Acute upper respiratory infection, unspecified Plan: This is a 52-year-old female presenting to the office complaining of nasal/chest congestion, sore throat, rhinorrhea, and dry cough x3 days. Her vital signs are stable, she is overall nontoxic appearing, and her physical exam is benign. Patient presenting with signs and symptoms most consistent with acute respiratory tract infection. Recommended symptomatic management including rest, increased fluids, advil/tylenol for pain/fever, and over the counter throat lozenges/decongestants. Patient was sent home on p.o. azithromycin 500 mg today followed by 250 mg daily x4 days. Patient advised to follow up here or go to the emergency room for worsening/persistent symptoms. Patient verbalized understanding and is agreeable with the plan. 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 The abrasions appear clean without surrounding erythema or purulent drainage. There is no fluctuance or induration. Recommended local wound care including cleansing the area with soap and water and applying bacitracin or triple antibiotic cream. Patient was advised to follow-up here or proceed to the emergency room if she were to develop worsening erythema or lymphangitic streaking. Patient verbalizes her understanding and she is in agreement with the plan. Medications: New azithromycin For 250 mg dose pack: take 500 mg today (day 1), then 250 mg for 4 days (days 2-5) PO 6 tabs 0RF Coding Level of Care Code Est Pt Level 3 (02015) Diagnoses Viral URI with cough J06.9 Abrasion of ankle without infection S90.519A
[2023-06-10 08:49] VITALS: BP 110/78; PULSE 93; TEMP 36.6; O2SAT 96; BMI 29.8
== END 2023-06-10 09:09 | disposition home or self-care (01) ==
PROVIDERS: PCP Internal Medicine; Visit Provider Physician Assistant Medical
DX: J06.9 Acute upper respiratory infection, unspecified (principal); S90.519A Abrasion, unspecified ankle, initial encounter
CPT/HCPCS: 99213

== ENCOUNTER 2023-06-14 09:33 | Emergency (ER) | payer OTHER, SELFPAY ==
--- NOTE | ~2023-06-14 | XR_ITS ---
EXAMINATION: XR CHEST CLINICAL INFORMATION: Bradycardia. COMPARISON: Chest 03/17/2023 TECHNIQUE: Frontal view of the chest was obtained. FINDINGS: No significant abnormality is noted involving the heart, lungs, mediastinum, bony thorax or soft tissues. XR/XR chest 1V IMPRESSION: Unremarkable chest examination.
[2023-06-14 09:36] VITALS: BP 118/67; PULSE 128; RESP 22; TEMP 36.6; O2SAT 98; BMI 25.6
--- NOTE | 2023-06-14 10:00 | ECG_ITS ---
Test Reason : TACHYCARDIA Blood Pressure : / mmHG Vent. Rate : 086 BPM Atrial Rate : 086 BPM P-R Int : 142 ms QRS Dur : 096 ms QT Int : 370 ms P-R-T Axes : 037 -21 043 degrees QTc Int : 442 ms Normal sinus rhythm Incomplete right bundle branch block Borderline ECG When compared with ECG of 05-JUN-2022 12:18, No significant change was found Referred By: Zhane Philip Electronically Signed By:IRINA VILLARREAL MD
--- NOTE | 2023-06-14 10:05 | ED.URI ---
HPI - URI/Sore Throat General Chief Complaint: Upper Respiratory Symptoms Stated Complaint: Diff breathing Time Seen by Provider: 06/14/23 10:00 Source: patient, RN notes reviewed and old records reviewed Mode of arrival: ambulatory History of Present Illness HPI Narrative: 52-year-old female with a past medical history of diabetes, pancreatic insufficiency, thyroid, GERD, dyslipidemia, fibromyalgia, anxiety, presenting to the ED complaining of nasal congestion/rhinorrhea, sinus pressure, dry cough, SOB, and chest discomfort when coughing x1 week. Admits finished a Z-Marcio from PCP for sinusitis yesterday without relief. Denies fever, chills, ear pain, sore throat, recent travel, sick contacts. Admits to using inhalers and neb machine at home with little relief MD elicited complaint: cough, rhinorrhea and nasal congestion Related Data Home Medications Medication Instructions Recorded Confirmed clonazepam 1 mg tablet 1 mg PO BID PRN Anxiety 04/28/20 03/24/23 zolpidem 10 mg tablet 10 mg PO BEDTIME PRN Insomnia 07/20/21 03/24/23 amitriptyline 50 mg tablet 50 mg PO BEDTIME 06/05/22 03/24/23 fluticasone propionate 50 1 spray intranasal DAILY PRN 06/05/22 03/24/23 mcg/actuation nasal Allergy Symptoms spray,suspension nortriptyline 25 mg capsule 25 mg PO BEDTIME 09/15/22 03/24/23 topiramate 100 mg tablet 100 mg PO BID 09/15/22 03/24/23 Previous Rx's Medication Instructions Recorded cane with quad tips #1 ea 01/28/21 methylcellulose (laxative) 500 mg 500 mg PO DAILY #90 tabs 05/05/22 tablet (Citrucel) ajddwaqezc-asgisqzifmqan-mevsapil 1 cap PO Q8H PRN migraine headae 06/07/22 50 mg-300 mg-40 mg capsule #14 caps (Fioricet) insulin degludec 100 unit/mL (3 18 unit (0.18 mL) subcut BEDTIME 06/21/22 mL) subcutaneous pen (Tresiba 90 days #30 mL FlexTouch U-100 insulin) ondansetron 4 mg disintegrating 4 mg PO DAILY PRN Nausea #14 tabs 06/21/22 tablet meclizine 12.5 mg tablet 12.5 mg PO DAILY PRN dizziness #20 06/25/22 tabs cetirizine 10 mg tablet 10 mg PO DAILY #90 tabs 09/03/22 duloxetine 30 mg capsule,delayed 30 mg PO BID #180 caps 09/03/22 release fluticasone 250 mcg-salmeterol 50 1 inh inhalation BID #180 ea 09/03/22 mcg/dose blistr powdr for inhalation (Advair Diskus) ezetimibe 10 mg tablet 10 mg PO BEDTIME #90 tabs 10/06/22 methyl salicylate 10 %-menthol 3 % 1 patch topical Q8-12H PRN muscle 11/15/22 topical patch (Salonpas (methyl pain #20 ea salicylate-menthol)) incontinence pad #120 ea 12/23/22 ropinirole 0.5 mg tablet 0.5 mg PO BEDTIME #90 caps 12/28/22 cholecalciferol (vitamin D3) 25 25 mcg PO DAILY #90 tabs 01/05/23 mcg (1,000 unit) tablet blood sugar diagnostic (FreeStyle #300 ea 02/14/23 Lite Strips) blood-glucose meter (FreeStyle #1 ea 02/14/23 Lite Meter kit) lancets 28 gauge (FreeStyle #300 ea 02/14/23 Lancets) metformin 750 mg tablet,extended 750 mg PO BID 90 days #180 tabs 03/04/23 release 24 hr ibuprofen 600 mg tablet 600 mg PO Q6H PRN pain #20 tabs 03/12/23 omeprazole 20 mg capsule,delayed 20 mg PO DAILY@0630 gerd #30 caps 03/22/23 release alcohol swabs (Alcohol Prep Pads) 1 pad topical TID #200 ea 03/24/23 bisacodyl 5 mg tablet,delayed 10 mg (2 x 5 mg) PO BEDTIME #180 04/11/23 release (Dulcolax (bisacodyl)) tabs cholestyramine-aspartame 4 gram 4 g PO BID #231 grams 04/11/23 oral powder (Cholestyramine Light) lnfizd-olmczvrr-bwhgpqn 1 cap PO QID #120 caps 04/11/23 36,000-114,000-180,000 unit capsule,delay rel (Creon) albuterol sulfate 2.5 mg/3 mL 2.5 mg (3 mL) inhalation QID PRN 04/16/23 (0.083 %) solution for nebulization shortness of breath or wheezing #75 mL albuterol sulfate 90 mcg/actuation 2 puff inhalation Q6H PRN 04/16/23 aerosol inhaler (ProAir HFA) shortness of breath or wheezing #18 grams benzonatate 200 mg capsule 200 mg PO BID-TID PRN cough #30 04/16/23 caps mirabegron 25 mg tablet,extended 25 mg PO DAILY 30 days #30 tabs 04/27/23 release 24 hr (Myrbetriq) Trulicity 3 mg/0.5 mL subcutaneous 3 mg (0.5 mL) subcut FR@1000 #2 mL 05/02/23 pen injector (dulaglutide) gabapentin 400 mg capsule 400 mg PO TID 30 days #90 caps 06/02/23 pen needle, diabetic 32 gauge x #100 ea 06/02/23 (BD Vanessa 2nd Gen Pen Needle) tizanidine 4 mg tablet 4 mg PO TID PRN for muscle spasm 06/02/23 #30 tabs azithromycin 250 mg tablet See Rx Instructions PO .COMPLEX #6 06/10/23 tabs fluticasone propionate 50 2 spray intranasal DAILY #16 grams 06/14/23 mcg/actuation nasal spray,suspension (Flonase Allergy Relief) prednisone 20 mg tablet 40 mg (2 x 20 mg) PO DAILY 5 days 06/14/23 #10 tabs Allergies Allergy/AdvReac Type Severity Reaction Status Date / Time aspirin Allergy Intermediate rash Verified 06/14/23 09:35 latex [LATEX] Allergy Mild HIVES/RASH Verified 06/14/23 09:35 Penicillins Allergy Mild unknown Verified 06/14/23 09:35 amoxicillin AdvReac Intermediate diarrhea Verified 06/14/23 09:35 Beef Containing Products AdvReac Intermediate DIARRHEA/VO Verified 06/14/23 09:35 MITING [employer] Allergy Intermediate inflammation Uncoded 06/14/23 09:35 and swelling Review of Systems Review of Systems: Constitutional: No Fever, No Chills ENT/Mouth: No Ear Pain, + Nasal Congestion, No Sinus Pain, No Hoarseness, No sore throat, + Rhinorrhea, No Swallowing Difficulty Cardiovascular: + Chest Pain w/cough, + SOB Respiratory: + Cough, No Sputum, + Wheezing Gastrointestinal: No Nausea, No Vomiting, No Diarrhea, No Constipation, No Abdominal pain Genitourinary: No Dysuria, No Urinary Frequency, No Flank Pain Musculoskeletal: No joint pain, No Myalgias, No Joint Swelling Skin: No Skin Lesions, No rash Neuro: No Weakness, No Numbness, No Paresthesias Yes all other systems are reviewed and are negative Constitutional: Constitutional: Reports as per [facility] Past Medical History Attestation statement: The following information was validated with the patient. Source: old records reviewed Medical History Microhematuria Candidiasis Tubular adenoma Controlled diabetes mellitus type II without complication Diarrhea Lower thoracic back pain Pancreatic insufficiency Pelvic pain Mild intermittent asthma Depression with anxiety COVID-19 vaccination declined Decreased hearing of right ear Tinnitus of right ear Arthritis Mixed stress and urge incontinence GERD (gastroesophageal reflux disease) Type 2 diabetes mellitus with microalbuminuria, with long-term current use of insulin B12 deficiency Non-toxic multinodular goiter Dyslipidemia Obesity (BMI 30-39.9) Restless leg syndrome Vertigo Fibromyalgia Anxiety Surgical History H/O thyroidectomy Hx of BSO (bilateral salpingo-oophorectomy) Hx of laparoscopy Hx of colonoscopy History of esophagogastroduodenoscopy (EGD) Hx of appendectomy Hx of cholecystectomy Hx of section Family History Family History Father Diabetes mellitus Heart murmur Mother Diabetes mellitus HTN (hypertension) Glaucoma Melanoma Social History Household Members: Family Housing: House Do you presently have visiting nurse or other home services: Yes Alcohol intake: never Patient Tobacco Use Status: Former Tobacco user Quit Date: 1 year ago Tobacco use type: Cigarette Cigarettes Per Day: 5 Years Smoked: 34 Smoked in Last 30 Days: No e-Cigarette/Vaping Use: Never Used Use of substances other than those prescribed or required for medical reasons: No Advance Directives: Yes Advance Directives on File: Yes Advance Directives Date on File: 06/21/22 service: No Current occupational status: unemployed Sexual orientation: Straight/Heterosexual Gender identity: Female Cognitive needs: No Hearing needs: No Vision needs: No Physical Exam Vital Signs: Vital Signs: Last Vital Signs Temp 98 F 06/14/23 09:36 Pulse 98 06/14/23 12:19 Resp 16 06/14/23 12:19 BP 120/63 06/14/23 12:19 Pulse Ox 99 06/14/23 12:19 O2 Del Method Room Air 06/14/23 12:19 BMI result Body Mass Index 25.6 Const: General: cooperative, healthy appearing and no acute distress Orientation/consciousness: patient oriented x3 Limitations: no limitations HEENT: Head: Yes normal to inspection and Yes atraumatic Ears: hearing grossly normal bilaterally, external ears normal, TM's normal bilaterally and mastoids normal General nose exam: Normal external nose present Face and sinus: Yes normal facial exam Throat: Yes posterior oropharynx normal, Yes tonsils normal, Yes uvula midline, No uvula laterally displaced and No uvular edema Eyes: General: appearance normal, both eyes and all related structures EOM: EOMs intact bilaterally Neck: Neck: Yes normal visual inspection and Yes no meningeal signs Resp: Effort & Inspection: normal respiratory effort and no respiratory distress Auscultation: wheezes expiratory wheezes (end) and lower bilaterally Cardio: Rate: regular rate and tachycardic Heart sounds: S1 normal heart sound present and S2 normal heart sound present GI: Inspection: Yes normal to inspection Palpation (GI): Soft to palpation, nontender, no guarding and not rigid Skin: Rashes: no rashes Wounds: no wounds Neuro: General: patient oriented x3, tone normal and no meningeal signs Cranial nerves: Yes CN's II-XII intact bilaterally Gait exam (Neuro): Normal gait present Extrem: General: Yes normal to inspection, Yes no pedal edema and Yes no calf tenderness Course Course Course Narrative: 1040--XR chest 1V IMPRESSION: Unremarkable chest examination. -COVID/FLU/RSV negative -VS improved Results discussed with patient including worrisome signs and symptoms and strict return precautions, and when to return to the emergency department. They verbalized understanding and feel safe for discharge at this time. Medications Administered Discontinued Medications Generic Name Dose Route Start Last Admin Trade Name Freq PRN Reason Stop Dose Admin Levalbuterol HCl 1.25 mg 06/14/23 10:22 06/14/23 11:48 Levalbuterol Hcl 1.25 Mg/3 Ml Vial.Neb INHALE 06/14/23 10:23 1.25 mg ONCE ONE Administration Prednisone 40 mg 06/14/23 10:22 06/14/23 10:59 Prednisone 20 Mg Tablet PO 06/14/23 10:23 40 mg ONCE ONE Administration Medical Decision Making Medical Decision Making MDM Narrative: 52-year-old female with a past medical history of diabetes, pancreatic insufficiency, thyroid, GERD, dyslipidemia, fibromyalgia, anxiety, presenting to the ED complaining of nasal congestion/rhinorrhea, sinus pressure, dry cough, SOB, and chest discomfort when coughing x1 week. 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 End expiratory wheeze noted bibasilarly, nontoxic appearing, no sinus tenderness, no feel edema/calf tenderness. Concern for asthma exacerbation vs viral syndrome vs bronchitis or pneumonia. Lower suspicion for ACS/PE or CHF. low suspicion for sepsis is likely viral etiology Plan: EKG, viral testing, CXR, Xopenex, p.o. prednisone, reassess Please refer to course for remaining clinical decision making, interpretation of labs/imaging results, and discussions with consultants and/or family members. Differential Diagnosis Differential Diagnoses: The differential diagnosis associated with the presentation includes As above Admission/Observation Consideration of admission/observation: Escalation of care including admission/observation considered Lab Data MDM Lab Attestation statement: I reviewed the patient's lab results. Labs: Lab Results 06/14/23 Range/Units 11:02 Influenza Type A (PCR) NEGATIVE (Negative) Influenza Type B (PCR) NEGATIVE (Negative) RSV RNA Qual (PCR) NEGATIVE (Negative) SARS-CoV-2 RNA (RT-PCR) NEGATIVE (Negative) Independent Interpretation I performed an independent interpretation of an: EKG (my interpretation: NSR rate 86, incomplete RBBB, NH 142. No STEMI) and Plain X-Ray (Unremarkable) Radiology Impression Discussion of test interpretation with radiology: I have reviewed the radiologist's reading. External Record Review External record reviewed: Inpatient record, Office record, Outpatient record, Prior outpatient labs, Prior outpatient radiology, Primary care record and Outside ED record Tests considered The following testing was considered but not selected: As above Prescription Management I considered prescription management with: Antibiotic Chronic Conditions Patient?s care impacted by: Other (Asthma) Discharge Plan Discharge Clinical Impression: Upper respiratory infection, Bronchitis Patient Disposition: Home, Self-Care Instructions: Upper Respiratory Infection (DC), Acute Bronchitis (ED) Additional Instructions: You tested negative for COVID, flu, RSV Your x-ray does not show pneumonia New likely a bronchitis Prednisone as a steroid please take as prescribed Continue to use a neb machine and inhalers at home In addition Flonase as a nasal decongestant Follow-up with her doctor Is symptoms persist or worsen return to the ED Georges negativo en COVID, gripe y VRS Dietz radiograf?a no muestra neumon?a. [place] probablemente vern bronquitis Prednisona wanda esteroide, t?evelin seg?n lo prescrito. Contin?e usando vern m?quina neb e inhaladores en casa. Adem?s Flonase wanda descongestionante nasal Seguimiento con dietz m?dico. ?Los s?ntomas persisten o empeoran? Regrese al servicio de urgencias. Prescriptions: New prednisone 20 mg tablet 40 mg PO DAILY 5 Days Qty: 10 0RF fluticasone propionate [Flonase Allergy Relief] 50 mcg/actuation spray,suspension 2 spray intranasal DAILY Qty: 16 0RF Rx Instructions: administer into each nostril No Action meclizine 12.5 mg tablet 12.5 mg PO DAILY PRN (Reason: dizziness) Qty: 20 1RF fluticasone propion-salmeterol [Advair Diskus] 250-50 mcg/dose blister with device 1 inh inhalation BID Qty: 180 3RF duloxetine 30 mg capsule,delayed release(DR/EC) 30 mg PO BID Qty: 180 3RF cetirizine 10 mg tablet 10 mg PO DAILY Qty: 90 3RF ezetimibe 10 mg tablet 10 mg PO BEDTIME Qty: 90 3RF (DME) incontinence pad See Rx Instructions .Route .MEDSUPPLY Qty: 120 8RF Rx Instructions: As directed 4 times a day as needed ropinirole 0.5 mg tablet 0.5 mg PO BEDTIME Qty: 90 1RF cholecalciferol (vitamin D3) 25 mcg (1,000 unit) tablet 25 mcg PO DAILY Qty: 90 1RF (DME) blood-glucose meter [FreeStyle Lite Meter] Kit See Rx Instructions .Route Qty: 1 0RF Rx Instructions: As directed (DME) FreeStyle Lite Strips Strip See Rx Instructions .Route Qty: 300 1RF Rx Instructions: test blood sugar 3 times per day (DME) lancets [FreeStyle Lancets] 28 gauge misc See Rx Instructions .Route Qty: 300 1RF Rx Instructions: test blood sugar 3 times per day metformin 750 mg tablet extended release 24 hr 750 mg PO BID 90 Days Qty: 180 1RF omeprazole 20 mg capsule,delayed release(DR/EC) 20 mg PO DAILY@0630 Qty: 30 2RF gabapentin 400 mg capsule 400 mg PO TID 30 Days Qty: 90 4RF tizanidine 4 mg tablet 4 mg PO TID PRN (Reason: for muscle spasm) Qty: 30 0RF (DME) pen needle, diabetic [BD Vanessa 2nd Gen Pen Needle] 32 gauge x 5/32 needle See Rx Instructions .Route Qty: 100 3RF Rx Instructions: Use to inject insulin once a day amitriptyline 50 mg Tablet 50 mg PO BEDTIME fluticasone propionate 50 mcg/actuation spray,suspension 1 spray intranasal DAILY PRN (Reason: Allergy Symptoms) gitccutvrr-vcjwhrqmoryip-wpio [Fioricet] 50-300-40 mg capsule 1 cap PO Q8H PRN (Reason: migraine headae) Qty: 14 0RF ibuprofen 600 mg tablet 600 mg PO Q6H PRN (Reason: pain) Qty: 20 0RF clonazepam 1 mg tablet 1 mg PO BID PRN (Reason: Anxiety) (DME) cane with quad tips See Rx Instructions .Route .MEDSUPPLY Qty: 1 0RF Rx Instructions: use as directed Salonpas(m.salicylate-menthol) 10-3 % adhesive patch,medicated 1 patch topical Q8-12H PRN (Reason: muscle pain) Qty: 20 1RF Rx Instructions: do not exceed 2 doses in a 24 hour period benzonatate 200 mg capsule 200 mg PO BID-TID PRN (Reason: cough) Qty: 30 0RF albuterol sulfate 2.5 mg /3 mL (0.083 %) solution for nebulization 2.5 mg inhalation QID PRN (Reason: shortness of breath or wheezing) Qty: 75 0RF albuterol sulfate [ProAir HFA] 90 mcg/actuation HFA aerosol inhaler 2 puff inhalation Q6H PRN (Reason: shortness of breath or wheezing) Qty: 18 5RF Tresiba FlexTouch U-100 100 unit/mL (3 mL) insulin pen 18 unit subcut BEDTIME 90 Days Qty: 30 4RF ondansetron 4 mg tablet,disintegrating 4 mg PO DAILY PRN (Reason: Nausea) Qty: 14 0RF alcohol swabs [Alcohol Prep Pads] Pads, Medicated 1 pad topical TID Qty: 200 2RF Trulicity 3 mg/0.5 mL pen injector 3 mg subcut FR@1000 Qty: 2 5RF azithromycin 250 mg tablet See Rx Instructions PO .COMPLEX Qty: 6 0RF Rx Instructions: For 250 mg dose pack: take 500 mg today (day 1), then 250 mg for 4 days (days 2-5) PO zolpidem 10 mg tablet 10 mg PO BEDTIME PRN (Reason: Insomnia) Citrucel 500 mg tablet 500 mg PO DAILY Qty: 90 3RF Rx Instructions: take it with full glass of water topiramate 100 mg tablet 100 mg PO BID nortriptyline 25 mg capsule 25 mg PO BEDTIME bisacodyl [Dulcolax (bisacodyl)] 5 mg tablet,delayed release (DR/EC) 10 mg PO BEDTIME Qty: 180 4RF Cholestyramine Light 4 gram powder 4 g PO BID Qty: 231 3RF Rx Instructions: administer w/meal; avoid other meds within 1hr before or 4-6hr after dose Creon 36,000-114,000- 180,000 unit capsule,delayed release(DR/EC) 1 cap PO QID Qty: 120 5RF Rx Instructions: administer with meals and/or snacks Myrbetriq 25 mg tablet extended release 24 hr 25 mg PO DAILY 30 Days Qty: 30 1RF Referrals: Mali Nova MD [Primary Care Provider] - Interventions: ED Discharge Assessment Last Done: 06/14/23 12:20 Print Language: Khmer
[2023-06-14] MEDS: predniSONE 20 MG TABLET 40 MG PO (10:59)
--- NOTE | 2023-06-14 11:34 | PC.NURSE ---
spoke with respiratory re: late xopenex- will report to dept to admin
[2023-06-14 11:48] LABS: Influenza A PCR NEGATIVE (Negative); Influenza B PCR NEGATIVE (Negative); Resp Syncy Virus RNA Qual PCR NEGATIVE (Negative); SARS COV2 PCR INHOUSE NEGATIVE (Negative)
[2023-06-14] MEDS: levalbuterol HCL 1.25 MG/3 ML VIAL.NEB INHALE (11:48)
[2023-06-14 12:19] VITALS: BP 120/63; PULSE 98; RESP 16; O2SAT 99
== END 2023-06-14 12:51 | disposition home or self-care (01) ==
PROVIDERS: Emergency Provider Emergency Medicine Emergency Medical Services; PCP Internal Medicine
DX: J06.9 Acute upper respiratory infection, unspecified (principal); J40 Bronchitis, not specified as acute or chronic; R00.1 Bradycardia, unspecified; R00.0 Tachycardia, unspecified; Z20.822 Contact with and (suspected) exposure to COVID-19; Z20.828 Contact with and (suspected) exposure to other viral communicable diseases
CPT/HCPCS: 0241U; 71045; 93005; 99284

== ENCOUNTER 2023-06-20 14:40 | Emergency (ER) | payer OTHER, SELFPAY ==
--- NOTE | 2023-06-20 14:53 | ED_ITS ---
HPI - Abdominal Pain General Chief Complaint: Abdominal Pain Stated Complaint: Abd pain/Nausea Time Seen by Provider: 06/20/23 22:42 Source: patient Mode of arrival: ambulatory Limitations: no limitations History of Present Illness HPI narrative: Patient is a 52-year-old female who presents emergency department for evaluation of diffuse upper abdominal pain with nausea and vomiting for 3 days. Reports pain is intermittent, usually lasting a few minutes at a time, described as a sharp and stabbing pain. She denies associated fevers or chills. She reports a history of cholecystectomy many years ago. Of note, she does state that she was recently treated for bronchitis, and completed a course of prednisone. Denies continued cough. Denies constipation, diarrhea, hematochezia, melena, hematemesis, genitourinary symptoms. Related Data Home Medications Medication Instructions Recorded Confirmed clonazepam 1 mg tablet 1 mg PO BID PRN Anxiety 04/28/20 03/24/23 zolpidem 10 mg tablet 10 mg PO BEDTIME PRN Insomnia 07/20/21 03/24/23 amitriptyline 50 mg tablet 50 mg PO BEDTIME 06/05/22 03/24/23 fluticasone propionate 50 1 spray intranasal DAILY PRN 06/05/22 03/24/23 mcg/actuation nasal Allergy Symptoms spray,suspension nortriptyline 25 mg capsule 25 mg PO BEDTIME 09/15/22 03/24/23 topiramate 100 mg tablet 100 mg PO BID 09/15/22 03/24/23 Previous Rx's Medication Instructions Recorded cane with quad tips #1 ea 01/28/21 methylcellulose (laxative) 500 mg 500 mg PO DAILY #90 tabs 05/05/22 tablet (Citrucel) ionodavgks-exwcfomjhghqw-psgmuyyn 1 cap PO Q8H PRN migraine headae 06/07/22 50 mg-300 mg-40 mg capsule #14 caps (Fioricet) insulin degludec 100 unit/mL (3 18 unit (0.18 mL) subcut BEDTIME 06/21/22 mL) subcutaneous pen (Tresiba 90 days #30 mL FlexTouch U-100 insulin) ondansetron 4 mg disintegrating 4 mg PO DAILY PRN Nausea #14 tabs 06/21/22 tablet meclizine 12.5 mg tablet 12.5 mg PO DAILY PRN dizziness #20 06/25/22 tabs cetirizine 10 mg tablet 10 mg PO DAILY #90 tabs 09/03/22 duloxetine 30 mg capsule,delayed 30 mg PO BID #180 caps 09/03/22 release fluticasone 250 mcg-salmeterol 50 1 inh inhalation BID #180 ea 09/03/22 mcg/dose blistr powdr for inhalation (Advair Diskus) ezetimibe 10 mg tablet 10 mg PO BEDTIME #90 tabs 10/06/22 methyl salicylate 10 %-menthol 3 % 1 patch topical Q8-12H PRN muscle 11/15/22 topical patch (Salonpas (methyl pain #20 ea salicylate-menthol)) incontinence pad #120 ea 12/23/22 ropinirole 0.5 mg tablet 0.5 mg PO BEDTIME #90 caps 12/28/22 cholecalciferol (vitamin D3) 25 25 mcg PO DAILY #90 tabs 01/05/23 mcg (1,000 unit) tablet blood sugar diagnostic (FreeStyle #300 ea 02/14/23 Lite Strips) blood-glucose meter (FreeStyle #1 ea 02/14/23 Lite Meter kit) lancets 28 gauge (FreeStyle #300 ea 02/14/23 Lancets) metformin 750 mg tablet,extended 750 mg PO BID 90 days #180 tabs 03/04/23 release 24 hr ibuprofen 600 mg tablet 600 mg PO Q6H PRN pain #20 tabs 03/12/23 omeprazole 20 mg capsule,delayed 20 mg PO DAILY@0630 gerd #30 caps 03/22/23 release alcohol swabs (Alcohol Prep Pads) 1 pad topical TID #200 ea 03/24/23 bisacodyl 5 mg tablet,delayed 10 mg (2 x 5 mg) PO BEDTIME #180 04/11/23 release (Dulcolax (bisacodyl)) tabs cholestyramine-aspartame 4 gram 4 g PO BID #231 grams 04/11/23 oral powder (Cholestyramine Light) pjyrvk-gkuosfnv-xstpobh 1 cap PO QID #120 caps 04/11/23 36,000-114,000-180,000 unit capsule,delay rel (Creon) albuterol sulfate 2.5 mg/3 mL 2.5 mg (3 mL) inhalation QID PRN 04/16/23 (0.083 %) solution for nebulization shortness of breath or wheezing #75 mL albuterol sulfate 90 mcg/actuation 2 puff inhalation Q6H PRN 04/16/23 aerosol inhaler (ProAir HFA) shortness of breath or wheezing #18 grams benzonatate 200 mg capsule 200 mg PO BID-TID PRN cough #30 04/16/23 caps mirabegron 25 mg tablet,extended 25 mg PO DAILY 30 days #30 tabs 04/27/23 release 24 hr (Myrbetriq) Trulicity 3 mg/0.5 mL subcutaneous 3 mg (0.5 mL) subcut FR@1000 #2 mL 05/02/23 pen injector (dulaglutide) gabapentin 400 mg capsule 400 mg PO TID 30 days #90 caps 06/02/23 pen needle, diabetic 32 gauge x #100 ea 06/02/23 (BD Vanessa 2nd Gen Pen Needle) tizanidine 4 mg tablet 4 mg PO TID PRN for muscle spasm 06/02/23 #30 tabs azithromycin 250 mg tablet See Rx Instructions PO .COMPLEX #6 06/10/23 tabs fluticasone propionate 50 2 spray intranasal DAILY #16 grams 06/14/23 mcg/actuation nasal spray,suspension (Flonase Allergy Relief) prednisone 20 mg tablet 40 mg (2 x 20 mg) PO DAILY 5 days 06/14/23 #10 tabs Allergies Allergy/AdvReac Type Severity Reaction Status Date / Time aspirin Allergy Intermediate rash Verified 06/14/23 09:35 latex [LATEX] Allergy Mild HIVES/RASH Verified 06/14/23 09:35 Penicillins Allergy Mild unknown Verified 06/14/23 09:35 amoxicillin AdvReac Intermediate diarrhea Verified 06/14/23 09:35 Beef Containing Products AdvReac Intermediate DIARRHEA/VO Verified 06/14/23 09:35 MITING [employer] Allergy Intermediate inflammation Uncoded 06/14/23 09:35 and swelling Review of Systems Review of Systems Yes all other systems are reviewed and are negative PMFSH Past Medical History Attestation statement: The following information was validated with the patient. Source: old records reviewed Medical History Microhematuria Candidiasis Tubular adenoma Controlled diabetes mellitus type II without complication Diarrhea Lower thoracic back pain Pancreatic insufficiency Pelvic pain Mild intermittent asthma Depression with anxiety COVID-19 vaccination declined Decreased hearing of right ear Tinnitus of right ear Arthritis Mixed stress and urge incontinence GERD (gastroesophageal reflux disease) Type 2 diabetes mellitus with microalbuminuria, with long-term current use of insulin B12 deficiency Non-toxic multinodular goiter Dyslipidemia Obesity (BMI 30-39.9) Restless leg syndrome Vertigo Fibromyalgia Anxiety Surgical History H/O thyroidectomy Hx of BSO (bilateral salpingo-oophorectomy) Hx of laparoscopy Hx of colonoscopy History of esophagogastroduodenoscopy (EGD) Hx of appendectomy Hx of cholecystectomy Hx of section Family History Family History Father Diabetes mellitus Heart murmur Mother Diabetes mellitus HTN (hypertension) Glaucoma Melanoma Social History Household Members: Family Housing: House Do you presently have visiting nurse or other home services: Yes Alcohol intake: never Patient Tobacco Use Status: Former Tobacco user Quit Date: 1 year ago Tobacco use type: Cigarette Cigarettes Per Day: 5 Years Smoked: 34 e-Cigarette/Vaping Use: Never Used Use of substances other than those prescribed or required for medical reasons: No Advance Directives: Yes Advance Directives on File: Yes Advance Directives Date on File: 06/21/22 Patient : No service: No Current occupational status: unemployed Sexual orientation: Straight/Heterosexual Gender identity: Female Cognitive needs: No Hearing needs: No Vision needs: No Physical Exam ED Vital Signs: Vital Signs - 24 hr 06/20/23 14:54 06/20/23 17:27 06/20/23 22:34 Temperature 96.1 F L 98.0 F 97.9 F Pulse Rate 124 H 97 81 Respiratory Rate 24 H 18 16 Blood Pressure 122/81 118/64 105/55 L Pulse Oximetry 96 97 97 Oxygen Delivery Method Room Air Room Air Room Air BMI result Body Mass Index 27.9 Appearance: Alert.?Oriented to person, place and time. No acute distress.?Normal affect. Eyes: Pupils equal, round and reactive to light.? ENT: Pharynx normal.?? Neck: Normal inspection.? Neck supple.?? CVS: Heart sounds normal. Normal heart rate and rhythm.? Pulses normal.?? Respiratory: No respiratory distress.? Lung sounds clear to auscultation bilaterally?? Abdomen: Soft with right upper quadrant and epigastric tenderness upon palpation. No rigidity. No guarding.. Normoactive bowel sounds. Skin: Skin warm and dry.? Normal skin color.? Extremities: No lower extremity edema.? Neuro: Moves all extremities spontaneously. Sensation intact bilaterally. . No focal neuro deficits. Ambulates with normal steady gait. Course Course Course Narrative: This is a rapid medical exam. Defer additional HPI, ROS, PE to prior provider. 52-year-old female with history of vertigo, DM, fibromyalgia here with abdominal pain, vomiting, diarrhea x 2 days. Recently finished prednisone for bronchitis. NO sick contact. Will need labs, UA, viral testing VSS Reevaluation(s) Reevaluation #1: CBC reveals leukocytosis of 14.4. No lactic acidosis. BMP unremarkable. LFTs are elevated; AST 340, ALT 150, alk-phos 146, no history of prior elevations. Lipase is within normal limits. Recommended to patient CT of the abdomen and pelvis for further evaluation, she declined stating that she has been here too long and wants to go home, she wants to follow-up with her primary care doctor tomorrow for this. I discussed with patient that she would be leaving against medical advice at this time. She verbalized understanding of this. We discussed potential complications including life-threatening illness and she verbalizes understanding. She is conscious alert and oriented x4, able to make her own decisions. Advised to return back to emergency department with any new or worsening symptoms or concerns. Time: 00:10 Medical Decision Making Medical Decision Making MDM Narrative: Patient is a 52-year-old female with past medical history of vertigo, diabetes, fibromyalgia, reported history of cholecystectomy presenting to emergency department for evaluation of upper abdominal pain with nausea and vomiting as per HPI. At the time my examination she has notable tenderness over the right upper quadrant and epigastrium. She presented to the emergency department initially tachycardic, heart rate has improved; pulse of 80 at the time of my exam. Will obtain CBC to evaluate for leukocytosis/ anemia, CMP and lipase to evaluate for abnormal electrolytes /abnormal renal function/ abnormal hepatic/biliary function, and Urinalysis. Differential Diagnosis Differential Diagnoses: The differential diagnosis associated with the presentation includes (Hepatitis, CBD stone, pancreatitis, gastritis) Admission/Observation Consideration of admission/observation: Escalation of care including admission/observation considered (See narrative above and course narrative for further detail) Lab Data MDM Lab Attestation statement: I reviewed the patient's lab results. (See course narrative for further detail) 06/20/23 15:21 06/20/23 15:21 Labs: Lab Results 06/20/23 06/20/23 Range/Units 15:21 15:27 WBC 14.4 H (4.8-10.8) X10*3/uL RBC 4.51 (4.20-5.50) X10*6/uL Hgb 14.2 (12.0-16.0) g/dl Hct 41.3 (37.0-47.0) % MCV 91.6 (80.0-98.0) fL MCH 31.5 (27.0-33.0) pg MCHC 34.4 (31.0-35.0) g/dl RDW 12.8 (11.0-16.0) % Plt Count 366 (160-400) X10*3/uL MPV 9.4 (9.4-12.3) fL Immature Gran % (Auto) 0.5 H (0.0-0.4) % Neut % (Auto) 66.8 (45-73) % Lymph % (Auto) 27.3 (20-40) % [place] % (Auto) 4.3 (2-11) % Eos % (Auto) 0.4 (0-4) % Baso % (Auto) 0.7 (0-2) % Lymph # (Auto) 3.9 (1.2-4.9) X10*3/uL [place] # (Auto) 0.6 (0.1-1.2) X10*3/uL Eos # (Auto) 0.1 (0.0-0.4) X10*3/uL Baso # (Auto) 0.1 (0.0-0.2) X10*3/uL Abs Immat Gran (auto) 0.07 H (0.00-0.03) X10*3/uL Absolute Neuts (auto) 9.6 H (2.0-8.3) x10*3/uL Absolute Nucleated RBC 0.000 (0.0-0.012) X10*3/uL Nucleated RBC % (auto) 0.0 (0.0-0.2) /100WBC Sodium 141 (135-145) mmol/L Potassium 3.5 (3.3-5.1) mmol/L Chloride 108 (96-108) mmol/L Carbon Dioxide 25 (22-29) mmol/L Anion Gap 12 (12-20) BUN 11 (9-16) mg/dL Creatinine 0.86 (0.5-1.4) mg/dL Estim Creat Clear Calc 75.2 Estimated GFR > 60 Random Glucose 110 (60-115) mg/dL Lactic Acid 1.9 (0.5-2.0) mmol/L Calcium 9.3 D (8.4-10.2) mg/dL Total Bilirubin 0.7 (0.0-1.0) mg/dL Direct Bilirubin 0.3 (0.0-0.5) mg/dL AST 340 H (5-31) U/L ALT 150 H (0-31) U/L Alkaline Phosphatase 146 H (39-117) U/L Total Protein 6.8 (6.5-8.0) g/dL Albumin 4.3 (3.5-5.0) g/dL Lipase 14 (8-78) U/L Urine Color Dark Yellow Urine Appearance Clear Urine pH 5.5 (5.0-9.0) Ur Specific [place] 1.015 (1.005-1.025) Urine Protein Negative (Neg-Trace) mg/dL Urine Glucose (UA) Negative (Negative) mg/dL Urine Ketones Negative (Negative) mg/dL Urine Blood Negative (Negative) Urine Nitrite Negative (Negative) Ur Leukocyte Esterase Small (1+) H (Negative) Urine RBC 0-2 (0-2) /HPF Urine WBC 6-10 H (0-5) /HPF Ur Squamous Epith Cells 0-2 (0-2) /HPF Urine Bacteria None Seen (None Seen) Hyaline Casts 0-2 (0-2) /LPF Influenza Type A (PCR) NEGATIVE (Negative) Influenza Type B (PCR) NEGATIVE (Negative) RSV RNA Qual (PCR) NEGATIVE (Negative) SARS-CoV-2 RNA (RT-PCR) NEGATIVE (Negative) External Record Review External record reviewed: Prior outpatient labs and Prior outpatient radiology Tests considered The following testing was considered but not selected: See course narrative for further detail, CT imaging considered patient refused Discharge Plan Discharge Clinical Impression: Abdominal pain, Elevated liver function tests Patient Disposition: Left Against Medical Advice Additional Instructions: As discussed, it was recommended that you remain in the emergency department to have imaging of your abdomen as your liver function tests are significantly elevated in they have not been this way in the past. At this time the exact cause of your abdominal pain is not identified. You have decided to leave against medical advice. Please contact your primary care provider to arrange for follow-up. You may return back to the emergency department with any new or worsening symptoms or concerns. Prescriptions: No Action meclizine 12.5 mg tablet 12.5 mg PO DAILY PRN (Reason: dizziness) Qty: 20 1RF fluticasone propion-salmeterol [Advair Diskus] 250-50 mcg/dose blister with device 1 inh inhalation BID Qty: 180 3RF duloxetine 30 mg capsule,delayed release(DR/EC) 30 mg PO BID Qty: 180 3RF cetirizine 10 mg tablet 10 mg PO DAILY Qty: 90 3RF ezetimibe 10 mg tablet 10 mg PO BEDTIME Qty: 90 3RF (DME) incontinence pad See Rx Instructions .Route .MEDSUPPLY Qty: 120 8RF Rx Instructions: As directed 4 times a day as needed ropinirole 0.5 mg tablet 0.5 mg PO BEDTIME Qty: 90 1RF cholecalciferol (vitamin D3) 25 mcg (1,000 unit) tablet 25 mcg PO DAILY Qty: 90 1RF (DME) blood-glucose meter [FreeStyle Lite Meter] Kit See Rx Instructions .Route Qty: 1 0RF Rx Instructions: As directed (DME) FreeStyle Lite Strips Strip See Rx Instructions .Route Qty: 300 1RF Rx Instructions: test blood sugar 3 times per day (DME) lancets [FreeStyle Lancets] 28 gauge misc See Rx Instructions .Route Qty: 300 1RF Rx Instructions: test blood sugar 3 times per day metformin 750 mg tablet extended release 24 hr 750 mg PO BID 90 Days Qty: 180 1RF omeprazole 20 mg capsule,delayed release(DR/EC) 20 mg PO DAILY@0630 Qty: 30 2RF gabapentin 400 mg capsule 400 mg PO TID 30 Days Qty: 90 4RF tizanidine 4 mg tablet 4 mg PO TID PRN (Reason: for muscle spasm) Qty: 30 0RF (DME) pen needle, diabetic [BD Vanessa 2nd Gen Pen Needle] 32 gauge x 5/32 needle See Rx Instructions .Route Qty: 100 3RF Rx Instructions: Use to inject insulin once a day amitriptyline 50 mg Tablet 50 mg PO BEDTIME fluticasone propionate 50 mcg/actuation spray,suspension 1 spray intranasal DAILY PRN (Reason: Allergy Symptoms) soeukszlxr-ojqtuckrnvpyu-kyno [Fioricet] 50-300-40 mg capsule 1 cap PO Q8H PRN (Reason: migraine headae) Qty: 14 0RF prednisone 20 mg tablet 40 mg PO DAILY 5 Days Qty: 10 0RF fluticasone propionate [Flonase Allergy Relief] 50 mcg/actuation spray,suspension 2 spray intranasal DAILY Qty: 16 0RF Rx Instructions: administer into each nostril ibuprofen 600 mg tablet 600 mg PO Q6H PRN (Reason: pain) Qty: 20 0RF clonazepam 1 mg tablet 1 mg PO BID PRN (Reason: Anxiety) (DME) cane with quad tips See Rx Instructions .Route .MEDSUPPLY Qty: 1 0RF Rx Instructions: use as directed Salonpas(m.salicylate-menthol) 10-3 % adhesive patch,medicated 1 patch topical Q8-12H PRN (Reason: muscle pain) Qty: 20 1RF Rx Instructions: do not exceed 2 doses in a 24 hour period benzonatate 200 mg capsule 200 mg PO BID-TID PRN (Reason: cough) Qty: 30 0RF albuterol sulfate 2.5 mg /3 mL (0.083 %) solution for nebulization 2.5 mg inhalation QID PRN (Reason: shortness of breath or wheezing) Qty: 75 0RF albuterol sulfate [ProAir HFA] 90 mcg/actuation HFA aerosol inhaler 2 puff inhalation Q6H PRN (Reason: shortness of breath or wheezing) Qty: 18 5RF Tresiba FlexTouch U-100 100 unit/mL (3 mL) insulin pen 18 unit subcut BEDTIME 90 Days Qty: 30 4RF ondansetron 4 mg tablet,disintegrating 4 mg PO DAILY PRN (Reason: Nausea) Qty: 14 0RF alcohol swabs [Alcohol Prep Pads] Pads, Medicated 1 pad topical TID Qty: 200 2RF Trulicity 3 mg/0.5 mL pen injector 3 mg subcut FR@1000 Qty: 2 5RF azithromycin 250 mg tablet See Rx Instructions PO .COMPLEX Qty: 6 0RF Rx Instructions: For 250 mg dose pack: take 500 mg today (day 1), then 250 mg for 4 days (days 2-5) PO zolpidem 10 mg tablet 10 mg PO BEDTIME PRN (Reason: Insomnia) Citrucel 500 mg tablet 500 mg PO DAILY Qty: 90 3RF Rx Instructions: take it with full glass of water topiramate 100 mg tablet 100 mg PO BID nortriptyline 25 mg capsule 25 mg PO BEDTIME bisacodyl [Dulcolax (bisacodyl)] 5 mg tablet,delayed release (DR/EC) 10 mg PO BEDTIME Qty: 180 4RF Cholestyramine Light 4 gram powder 4 g PO BID Qty: 231 3RF Rx Instructions: administer w/meal; avoid other meds within 1hr before or 4-6hr after dose Creon 36,000-114,000- 180,000 unit capsule,delayed release(DR/EC) 1 cap PO QID Qty: 120 5RF Rx Instructions: administer with meals and/or snacks Myrbetriq 25 mg tablet extended release 24 hr 25 mg PO DAILY 30 Days Qty: 30 1RF Referrals: Mali Nova MD [Primary Care Provider] - Stand Alone Forms: Against Medical Advice
[2023-06-20 14:54] VITALS: BP 122/81; PULSE 124; RESP 24; TEMP 35.6; O2SAT 96; BMI 27.9
[2023-06-20 15:27] LABS: MANUAL DIFF FLAG NO
[2023-06-20 15:29] LABS: Basophils Absolute Auto 0.1 X10*3/uL (0.0-0.2); Basophils Percent Auto 0.7 % (0-2); Eosinophils Absolute Auto 0.1 X10*3/uL (0.0-0.4); Eosinophils Percent Auto 0.4 % (0-4); Hematocrit 41.3 % (37.0-47.0); Hemoglobin 14.2 g/dl (12.0-16.0); Imm Gran Abs Auto 0.07 X10*3/uL (0.00-0.03); Imm Gran Pct Auto 0.5 % (0.0-0.4); Lymphocytes Absolute Auto 3.9 X10*3/uL (1.2-4.9); Lymphocytes Percent Auto 27.3 % (20-40); Mean Corpuscular HGB Conc 34.4 g/dl (31.0-35.0); Mean Corpuscular Hemoglobin 31.5 pg (27.0-33.0); Mean Corpuscular Volume 91.6 fL (80.0-98.0); Mean Platelet Volume 9.4 fL (9.4-12.3); Monocytes Absolute Auto 0.6 X10*3/uL (0.1-1.2); Monocytes Percent Auto 4.3 % (2-11); Neutrophils Absolute Auto 9.6 x10*3/uL (2.0-8.3); Neutrophils Percent Auto 66.8 % (45-73); Platelet Count 366 X10*3/uL (160-400); Red Blood Count 4.51 X10*6/uL (4.20-5.50); Red Cell Distribution Width 12.8 % (11.0-16.0); White Blood Count 14.4 X10*3/uL (4.8-10.8)
[2023-06-20 15:39] LABS: Lactic Acid 1.9 mmol/L (0.5-2.0)
[2023-06-20 15:44] LABS: Alanine Aminotransferase 150 U/L (0-31); Albumin Level 4.3 g/dL (3.5-5.0); Alkaline Phosphatase 146 U/L (39-117); Anion Gap 12 (12-20); Aspartate Amino Transferase 340 U/L (5-31); Bilirubin Direct 0.3 mg/dL (0.0-0.5); Bilirubin Total 0.7 mg/dL (0.0-1.0); Blood Urea Nitrogen 11 mg/dL (9-16); Calcium 9.3 mg/dL (8.4-10.2); Carbon Dioxide 25 mmol/L (22-29); Chloride 108 mmol/L (96-108); Creatinine Clr Calc Pharmacy 75.2; Estimated Glomerular Filt Rate > 60; Glucose Random 110 mg/dL (60-115); Lipase 14 U/L (8-78); Potassium 3.5 mmol/L (3.3-5.1); Sodium 141 mmol/L (135-145); Total Protein 6.8 g/dL (6.5-8.0)
[2023-06-20 15:44] LABS: Appearance Urine Clear; Color Urine Dark Yellow; Glucose Urine UA Negative (Negative); Leukocyte Esterase Urine Small (1+) (Negative); Nitrite Urine Negative (Negative); PH 5.5 (5.0-9.0); Specific Gravity - Urine 1.015 (1.005-1.025); UMIC TRIGGER UACC YES; Urine Blood Negative (Negative); Urine Ketones Negative (Negative); Urine Protein Negative (Neg-Trace)
[2023-06-20 15:47] LABS: Bacteria Urine None Seen (None Seen); Hyaline Casts Urine 0-2 /LPF (0-2); RBC Urine 0-2 /HPF (0-2); Squamous Epithelial Cell Urine 0-2 /HPF (0-2); UACC Culture Trigger YES
[2023-06-20 16:07] LABS: Influenza A PCR NEGATIVE (Negative); Influenza B PCR NEGATIVE (Negative); Resp Syncy Virus RNA Qual PCR NEGATIVE (Negative); SARS COV2 PCR INHOUSE NEGATIVE (Negative)
[2023-06-20 17:27] VITALS: BP 118/64; PULSE 97; RESP 18; TEMP 36.7; O2SAT 97
[2023-06-20 22:34] VITALS: BP 105/55; PULSE 81; RESP 16; TEMP 36.6; O2SAT 97
--- NOTE | 2023-06-20 22:38 | PC.NURSE ---
Patient brought back from waiting room at 2215. Patient reports having epigastric pain x2 days with increasing strength today. Patient states that she has no gallbladder or appendix as she had them removed many years ago. Patient endorses diarrhea and nausea, no vomiting. Pt does endorse burning with urination and urinary incontinence (which is being followed by urology per pt) Upon auscultation, all quadrants had hypoactive bowel sounds, there was tenderness in both upper quadrants but not in the lower quadrants
== END 2023-06-21 00:15 | disposition left against medical advice (07) ==
PROVIDERS: Nurse Practitioner Family; Emergency Provider Emergency Medicine; PCP Internal Medicine
DX: R10.10 Upper abdominal pain, unspecified (principal); R74.01 Elevation of levels of liver transaminase levels; Z20.822 Contact with and (suspected) exposure to COVID-19; Z20.828 Contact with and (suspected) exposure to other viral communicable diseases; E11.9 Type 2 diabetes mellitus without complications; Z87.891 Personal history of nicotine dependence
CPT/HCPCS: 0241U; 36415; 80048; 80076; 81001; 83605; 83690; 85025; 87086; 99283; 99284

== ENCOUNTER 2023-07-07 08:35 | Outpatient (AMB) | payer OTHER, SELFPAY ==
[2023-07-07 09:10] VITALS: BP 110/68; PULSE 92; O2SAT 99; BMI 28.5
--- NOTE | 2023-07-07 09:10 | MHC.PC.OV ---
Vital Signs 07/07/23 09:10 Height 5 ft 4 in Weight 166 lb BMI 28.5 BP 110/68 Blood Pressure Location Rt brachial Position Sitting Pulse 92 Pulse Source Pulse Oximeter Pulse Oximetry (%) 99 Oxygen Delivery Method Room Air Intake Visit Reasons: 06-21/[facility]/Abd pain/Nausea Intake Note: Pt is here to an ER follow up for Abd pain and she was seen a week prior for bronchitis Allergies aspirin Allergy (Intermediate, Verified 07/07/23 09:38) rash latex [LATEX] Allergy (Mild, Verified 07/07/23 09:38) HIVES/RASH Penicillins Allergy (Mild, Verified 07/07/23 09:38) unknown amoxicillin Adverse Reaction (Intermediate, Verified 07/07/23 09:38) diarrhea Beef Containing Products Adverse Reaction (Intermediate, Verified 07/07/23 09:38) DIARRHEA/VOMITING [employer] Se[employer] Allergy (Intermediate, Uncoded 07/07/23 09:38) inflammation and swelling Medication List - Last Reconciled 07/07/23 by Mali Nova MD [incontinence pad As directed 4 times a day as needed] albuterol sulfate 2.5 mg (3 mL) inhalation QID PRN albuterol sulfate 90 mcg/actuation (ProAir HFA) 2 puffs inhalation Q6H PRN alcohol swabs (Alcohol Prep Pads) 1 pad topical TID amitriptyline 50 mg PO BEDTIME bisacodyl (Dulcolax (bisacodyl)) 10 mg (2 x 5 mg) PO BEDTIME blood sugar diagnostic (FreeStyle Lite Strips) test blood sugar 3 times per day blood-glucose meter (FreeStyle Lite Meter kit) As directed aurxydlkaw-ouhoyecuuifby-osrm 50-300-40 mg (Fioricet) 1 cap PO Q8H PRN [cane with quad tips use as directed] cetirizine 10 mg PO DAILY cholecalciferol (vitamin D3) 25 mcg PO DAILY cholestyramine-aspartame 4 gram (Cholestyramine Light) 4 grams PO BID clonazepam 1 mg PO BID PRN duloxetine 30 mg PO BID ezetimibe 10 mg PO BEDTIME fluticasone propion-salmeterol 250-50 mcg/dose (Advair Diskus) 1 inh inhalation BID fluticasone propionate 50 mcg/actuation (Flonase Allergy Relief) 2 sprays intranasal DAILY gabapentin 400 mg PO TID 30 days ibuprofen 600 mg PO Q6H PRN insulin degludec (Tresiba FlexTouch U-100 insulin) 18 units (0.18 mL) subcut BEDTIME 90 days lancets (FreeStyle Lancets) test blood sugar 3 times per day djsxpb-qfpvbhkb-vfaxsbg 36,000-114,000- 180,000 unit (Creon) 1 cap PO QID meclizine 12.5 mg PO DAILY PRN metformin ER 750 mg PO BID 90 days methyl salicylate-menthol 10-3 % (Salonpas (methyl salicylate-menthol)) 1 patch topical Q8-12H PRN methylcellulose (laxative) (Citrucel) 500 mg PO DAILY mirabegron ER (Myrbetriq) 25 mg PO DAILY 90 days nortriptyline 25 mg PO BEDTIME omeprazole 20 mg PO DAILY@0630 ondansetron 4 mg PO DAILY PRN pen needle, diabetic (BD Vanessa 2nd Gen Pen Needle) Use to inject insulin once a day ropinirole 0.5 mg PO BEDTIME topiramate 100 mg PO BID Trulicity (dulaglutide) 3 mg (0.5 mL) subcut FR@1000 NS zolpidem 10 mg PO BEDTIME PRN Tobacco use date assessed: 07/07/23 Dental Screening Dental Screen Date: 07/07/23 Did you have a dental visit in the last 12 months?: Yes Did you have a dental problem in the last 6 months where you did not have access to dental care?: No Was dental information given to patient?: Patient has dentist HPI 06-21/[facility] [place]d [place]/Nausea HPI Details 52-year-old female with past medical history of vertigo, diabetes, fibromyalgia, reported history of cholecystectomy here for follow-up after recent ER visit 06/20/2023 complaining of upper abdominal pain with nausea and vomiting. Labs were drawn which showed marked elevation in her liver enzymes and alkaline phosphatase,, with some leukocytosis, negative elevations in bilirubin level. CT of abdomen was recommend, with patient declined stating that she was waiting too long in the ER. At present patient states that this abdominal pain has resolved, denies any change in bowel habits, no nausea vomiting or heartburn symptoms . [facility] Medical History Elevated liver transaminase level Microhematuria Candidiasis Tubular adenoma Controlled diabetes mellitus type II without complication Diarrhea Lower thoracic back pain Pancreatic insufficiency Pelvic pain Mild intermittent asthma Depression with anxiety COVID-19 vaccination declined Decreased hearing of right ear Tinnitus of right ear Arthritis Mixed stress and urge incontinence GERD (gastroesophageal reflux disease) Type 2 diabetes mellitus with microalbuminuria, with long-term current use of insulin B12 deficiency Non-toxic multinodular goiter Dyslipidemia Obesity (BMI 30-39.9) Restless leg syndrome Vertigo Fibromyalgia Anxiety Surgical History H/O thyroidectomy Hx of BSO (bilateral salpingo-oophorectomy) Hx of laparoscopy Hx of colonoscopy History of esophagogastroduodenoscopy (EGD) Hx of appendectomy Hx of cholecystectomy Hx of section Family History Father Diabetes mellitus Heart murmur Mother Diabetes mellitus HTN (hypertension) Glaucoma Melanoma Social History Household Members: Family Housing: House Do you presently have visiting nurse or other home services: Yes Alcohol intake: never Patient Tobacco Use Status: Former Tobacco user Quit Date: 1 year ago Tobacco use type: Cigarette Cigarettes Per Day: 5 Years Smoked: 34 e-Cigarette/Vaping Use: Never Used Advance Directives Date on File: 06/21/22 service: No Current occupational status: unemployed Sexual orientation: Straight/Heterosexual Gender identity: Female Cognitive needs: No Hearing needs: No Vision needs: No Questionnaire Thrive Questionnaire Date Thrive assessed: 06/21/22 NANCY-7 AMB Questionnaire NANCY-7 Date NANCY - 7 assessed: 06/21/22 Source: Developed by Drs. Umair Drew, Amber Up, Glynn Benson and colleagues, with an educational pola from [employer]. Review of Systems Const All systems reviewed & are unremarkable except as noted in HPI and below Physical exam (Primary Care) Vital Signs: Last Vital Signs Pulse 92 07/07/23 09:10 BP 110/68 07/07/23 09:10 Pulse Ox 99 07/07/23 09:10 Oxygen Delivery Method Room Air 07/07/23 09:10 BMI result Body Mass Index 28.5 Tobacco/Smoking Status: Tobacco use Status Tobacco use date assessed 07/07/23 07/07/23 09:18 Patient Tobacco Use Status Former Tobacco user 07/07/23 09:12 Tobacco use type Cigarette 07/07/23 09:12 e-Cigarette/Vaping Use Never Used 07/07/23 09:12 Thrive Assessment: Date of Thrive Assessment Date Thrive assessed 06/21/22 07/07/23 09:12 Const General: comfortable and no acute distress Orientation/consciousness: patient oriented x3 Eyes General: appearance normal, both eyes and all related structures Conjunctivae: conjunctivae normal Sclerae: sclerae normal Neck Neck: Yes full ROM, Yes no lymphadenopathy and Yes supple Resp Auscultation: clear to auscultation bilaterally Cardio Rate: regular rate Rhythm: regular rhythm Heart sounds: S1 normal heart sound present and S2 normal heart sound present GI Inspection: Yes normal to inspection Palpation (GI): Soft to palpation, nontender, no guarding and no masses General: Yes no CVA tenderness Back/Spine/Pelvis Back: no CVA tenderness Neuro General: patient oriented x3 Assessment and Plan Assessment & Plan (1) Elevated liver transaminase level: Code(s): R74.01 - Elevation of levels of liver transaminase levels Plan: Patient currently symptomatic, repeat liver panel ordered. Advised to follow-up with her GI specialist if symptoms persist Orders: Orders Liver Panel Today R74.01 - Elevation of levels of liver transaminase levels Coding Level of Care Code Est Pt Level 3 (37569) Diagnoses Elevated liver transaminase level R74.01
== END 2023-07-07 12:57 | disposition home or self-care (01) ==
PROVIDERS: PCP Internal Medicine; Visit Provider Internal Medicine
DX: R74.01 Elevation of levels of liver transaminase levels (principal)
CPT/HCPCS: 99213

== ENCOUNTER 2023-07-07 09:50 | Outpatient (REF) | payer OTHER, SELFPAY ==
[2023-07-07 13:46] LABS: Alanine Aminotransferase 15 U/L (0-31); Albumin Level 4.3 g/dL (3.5-5.0); Alkaline Phosphatase 99 U/L (39-117); Aspartate Amino Transferase 17 U/L (5-31); Bilirubin Direct 0.1 mg/dL (0.0-0.5); Bilirubin Total 0.4 mg/dL (0.0-1.0); Total Protein 6.7 g/dL (6.5-8.0)
== END 2023-07-07 09:51 | disposition home or self-care (01) ==
LOC: HO.HMGCLDS 09:50
PROVIDERS: PCP Internal Medicine; Visit Provider Internal Medicine
DX: R74.01 Elevation of levels of liver transaminase levels (principal)
CPT/HCPCS: 36415; 80076

== ENCOUNTER 2023-08-12 03:39 | Emergency (ER) | payer OTHER, SELFPAY ==
[2023-08-12 03:42] VITALS: BP 132/77; PULSE 117; RESP 18; TEMP 36.8; O2SAT 97; BMI 30.6
[2023-08-12 05:08] VITALS: BP 119/61; PULSE 92; RESP 15; TEMP 36.9; O2SAT 97
[2023-08-12 05:18] LABS: Basophils Absolute Auto 0.1 X10*3/uL (0.0-0.2); Eosinophils Absolute Auto 0.1 X10*3/uL (0.0-0.4); Eosinophils Percent Auto 2.1 % (0-4); Hemoglobin 13.1 g/dl (12.0-16.0); Imm Gran Abs Auto 0.02 X10*3/uL (0.00-0.03); Imm Gran Pct Auto 0.3 % (0.0-0.4); Lymphocytes Absolute Auto 2.1 X10*3/uL (1.2-4.9); Lymphocytes Percent Auto 34.3 % (20-40); MANUAL DIFF FLAG NO; Mean Corpuscular HGB Conc 33.6 g/dl (31.0-35.0); Mean Corpuscular Hemoglobin 31.6 pg (27.0-33.0); Mean Corpuscular Volume 94.2 fL (80.0-98.0); Mean Platelet Volume 9.5 fL (9.4-12.3); Monocytes Absolute Auto 0.4 X10*3/uL (0.1-1.2); Monocytes Percent Auto 6.9 % (2-11); Neutrophils Absolute Auto 3.5 x10*3/uL (2.0-8.3); Neutrophils Percent Auto 55.4 % (45-73); Platelet Count 260 X10*3/uL (160-400); Red Blood Count 4.14 X10*6/uL (4.20-5.50); Red Cell Distribution Width 13.4 % (11.0-16.0); White Blood Count 6.2 X10*3/uL (4.8-10.8)
[2023-08-12 05:32] LABS: Alanine Aminotransferase 19 U/L (0-31); Alkaline Phosphatase 93 U/L (39-117); Anion Gap 11 (12-20); Aspartate Amino Transferase 20 U/L (5-31); Bilirubin Direct 0.1 mg/dL (0.0-0.5); Bilirubin Total 0.3 mg/dL (0.0-1.0); Blood Urea Nitrogen 8 mg/dL (9-16); Calcium 9.2 mg/dL (8.4-10.2); Carbon Dioxide 25 mmol/L (22-29); Chloride 113 mmol/L (96-108); Creatinine Clr Calc Pharmacy 84.6; Estimated Glomerular Filt Rate > 60; Glucose Random 94 mg/dL (60-115); Potassium 4.2 mmol/L (3.3-5.1); Sodium 145 mmol/L (135-145); Total Protein 6.3 g/dL (6.5-8.0)
--- NOTE | 2023-08-12 06:23 | ED_ITS ---
HPI - General Adult General Chief complaint: Headache Stated complaint: migraine Time Seen by Provider: 08/12/23 06:21 Source: patient Mode of arrival: ambulatory Limitations: no limitations History of Present Illness HPI narrative: Patient is a 52-year-old female with history of T2DM, fibromyalgia, vertigo, migraines presenting to the ED with complaint of headache for the past week. States the pain is typical of her normal migraines. Denies sudden onset. Denies worst headache of life. Reports associated nausea and vomiting as well as photophobia. States she was seen here in May of 2023 and was told that her liver enzymes were elevated on her bloodwork. States she followed up with PCP and was taken off her metformin, tizanidine, and two other medications she cannot recall. Denies any abdominal pain at this time. Denies blurred vision, double vision, or other visual changes. Denies cough, fevers, chest pain, palpitations, or dyspnea. Has not taken any prescription or OTC medications for her headache because she was unsure what medications she could take that would not cause liver inflammation. MD complaint: headache Onset (ago): week(s) Location: head Radiation: non-radiation Severity: severe Quality: aching Pain Consistency: constant Relieving factors: none Exacerbating factors: other (light) Treatments prior to arrival: none Related Data Home Medications Medication Instructions Recorded Confirmed clonazepam 1 mg tablet 1 mg PO BID PRN Anxiety 04/28/20 07/07/23 zolpidem 10 mg tablet 10 mg PO BEDTIME PRN Insomnia 07/20/21 07/07/23 amitriptyline 50 mg tablet 50 mg PO BEDTIME 06/05/22 07/07/23 nortriptyline 25 mg capsule 25 mg PO BEDTIME 09/15/22 07/07/23 topiramate 100 mg tablet 100 mg PO BID 09/15/22 07/07/23 Previous Rx's Medication Instructions Recorded cane with quad tips #1 ea 01/28/21 methylcellulose (laxative) 500 mg 500 mg PO DAILY #90 tabs 05/05/22 tablet (Citrucel) zheqjgrzpe-ydvkdefuirvpr-mgwivwrp 1 cap PO Q8H PRN migraine headae 06/07/22 50 mg-300 mg-40 mg capsule #14 caps (Fioricet) insulin degludec 100 unit/mL (3 18 unit (0.18 mL) subcut BEDTIME 06/21/22 mL) subcutaneous pen (Tresiba 90 days #30 mL FlexTouch U-100 insulin) ondansetron 4 mg disintegrating 4 mg PO DAILY PRN Nausea #14 tabs 06/21/22 tablet meclizine 12.5 mg tablet 12.5 mg PO DAILY PRN dizziness #20 06/25/22 tabs cetirizine 10 mg tablet 10 mg PO DAILY #90 tabs 09/03/22 duloxetine 30 mg capsule,delayed 30 mg PO BID #180 caps 09/03/22 release fluticasone 250 mcg-salmeterol 50 1 inh inhalation BID #180 ea 09/03/22 mcg/dose blistr powdr for inhalation (Advair Diskus) ezetimibe 10 mg tablet 10 mg PO BEDTIME #90 tabs 10/06/22 methyl salicylate 10 %-menthol 3 % 1 patch topical Q8-12H PRN muscle 11/15/22 topical patch (Salonpas (methyl pain #20 ea salicylate-menthol)) incontinence pad #120 ea 12/23/22 blood sugar diagnostic (FreeStyle #300 ea 02/14/23 Lite Strips) blood-glucose meter (FreeStyle #1 ea 02/14/23 Lite Meter kit) lancets 28 gauge (FreeStyle #300 ea 02/14/23 Lancets) metformin 750 mg tablet,extended 750 mg PO BID 90 days #180 tabs 03/04/23 release 24 hr ibuprofen 600 mg tablet 600 mg PO Q6H PRN pain #20 tabs 03/12/23 alcohol swabs (Alcohol Prep Pads) 1 pad topical TID #200 ea 03/24/23 bisacodyl 5 mg tablet,delayed 10 mg (2 x 5 mg) PO BEDTIME #180 04/11/23 release (Dulcolax (bisacodyl)) tabs rmnrhc-qtvhojyt-zsrtzdk 1 cap PO QID #120 caps 04/11/23 36,000-114,000-180,000 unit capsule,delay rel (Creon) albuterol sulfate 2.5 mg/3 mL 2.5 mg (3 mL) inhalation QID PRN 04/16/23 (0.083 %) solution for nebulization shortness of breath or wheezing #75 mL albuterol sulfate 90 mcg/actuation 2 puff inhalation Q6H PRN 04/16/23 aerosol inhaler (ProAir HFA) shortness of breath or wheezing #18 grams Trulicity 3 mg/0.5 mL subcutaneous 3 mg (0.5 mL) subcut FR@1000 #2 mL 05/02/23 pen injector (dulaglutide) gabapentin 400 mg capsule 400 mg PO TID 30 days #90 caps 06/02/23 pen needle, diabetic 32 gauge x #100 ea 06/02/23 (BD Avnessa 2nd Gen Pen Needle) fluticasone propionate 50 2 spray intranasal DAILY #16 grams 06/14/23 mcg/actuation nasal spray,suspension (Flonase Allergy Relief) mirabegron 25 mg tablet,extended 25 mg PO DAILY 90 days #90 tabs 06/28/23 release 24 hr (Myrbetriq) cholecalciferol (vitamin D3) 25 25 mcg PO DAILY #90 tabs 06/29/23 mcg (1,000 unit) tablet ropinirole 0.5 mg tablet 0.5 mg PO BEDTIME #90 caps 06/29/23 omeprazole 20 mg capsule,delayed 20 mg PO DAILY@0630 gerd #30 caps 07/13/23 release cholestyramine-aspartame 4 gram 4 g PO BID #231 grams 07/29/23 oral powder (Cholestyramine Light) Allergies Allergy/AdvReac Type Severity Reaction Status Date / Time aspirin Allergy Intermediate rash Verified 07/07/23 09:38 latex [LATEX] Allergy Mild HIVES/RASH Verified 07/07/23 09:38 Penicillins Allergy Mild unknown Verified 07/07/23 09:38 amoxicillin AdvReac Intermediate diarrhea Verified 07/07/23 09:38 Beef Containing Products AdvReac Intermediate DIARRHEA/VO Verified 07/07/23 09:38 MITING sumatriptan [From Imitrex] AdvReac Palpitation Verified 08/12/23 04:00 s [employer] Allergy Intermediate inflammation Uncoded 07/07/23 09:38 and swelling Review of Systems 2 Review of Systems: As per HPI. Yes all other systems are reviewed and are negative Constitutional: Constitutional: Reports as per HPI PMFSH Past Medical History Onset Date is defined in the Problem List Problems that require an onset date and time if occurred within 24 hrs of arrival to the ED Aortic Dissection and Rupture; Neurologic impairment; Cardiopulmonary Arrest; Endotracheal Intubation; Insertion or Replacement of Mechanical Circulatory Assist Device Medical History Elevated liver transaminase level Microhematuria Candidiasis Tubular adenoma Controlled diabetes mellitus type II without complication Diarrhea Lower thoracic back pain Pancreatic insufficiency Pelvic pain Mild intermittent asthma Depression with anxiety COVID-19 vaccination declined Decreased hearing of right ear Tinnitus of right ear Arthritis Mixed stress and urge incontinence GERD (gastroesophageal reflux disease) Type 2 diabetes mellitus with microalbuminuria, with long-term current use of insulin B12 deficiency Non-toxic multinodular goiter Dyslipidemia Obesity (BMI 30-39.9) Restless leg syndrome Vertigo Fibromyalgia Anxiety Surgical History H/O thyroidectomy Hx of BSO (bilateral salpingo-oophorectomy) Hx of laparoscopy Hx of colonoscopy History of esophagogastroduodenoscopy (EGD) Hx of appendectomy Hx of cholecystectomy Hx of section Family History Family History Father Diabetes mellitus Heart murmur Mother Diabetes mellitus HTN (hypertension) Glaucoma Melanoma Social History Social History Household Members: Family Housing: House Do you presently have visiting nurse or other home services: Yes Alcohol intake: never Patient Tobacco Use Status: Former Tobacco user Quit Date: 1 year ago Tobacco use type: Cigarette Cigarettes Per Day: 5 Years Smoked: 34 Smoked in Last 30 Days: No e-Cigarette/Vaping Use: Never Used Use of substances other than those prescribed or required for medical reasons: No Advance Directives: Yes Advance Directives on File: Yes Advance Directives Date on File: 06/21/22 Patient : No service: No Current occupational status: unemployed Sexual orientation: Straight/Heterosexual Gender identity: Female Cognitive needs: No Hearing needs: No Vision needs: No Physical Exam ED Vital Signs: Vital Signs - 24 hr 08/12/23 03:42 08/12/23 05:08 08/12/23 07:40 Temperature 98.2 F 98.4 F 97.6 F Pulse Rate 117 H 92 75 Respiratory Rate 18 15 20 Blood Pressure 132/77 119/61 122/63 Pulse Oximetry 97 97 97 Oxygen Delivery Method Room Air Room Air Room Air BMI result Body Mass Index 30.6 Vital signs have been reviewed and appear to be correct. Blood pressure normal. Heart rate normal. Respiratory rate normal. Temperature normal. Oxygen saturation normal. Const General: cooperative, healthy appearing and no acute distress Orientation/consciousness: oriented to person, oriented to place, oriented to time and patient oriented x3 Limitations: no limitations HENMT Head: Yes normocephalic and Yes atraumatic Ears: external ears normal General nose exam: Normal external nose present Face and sinus: Yes face symmetric Mouth: oropharynx normal and moist mucous membranes Throat: Yes uvula midline Eyes Pupils: Equal, round and reactive pupils present Neck Neck: Yes normal visual inspection and Yes supple Resp Effort & Inspection: normal respiratory effort and able to speak in complete sentences Auscultation: clear to auscultation bilaterally Cardio Rate: regular rate Rhythm: regular rhythm Heart sounds: S1 normal heart sound present and S2 normal heart sound present GI Palpation (GI): Soft to palpation and nontender Auscultation: normoactive bowel sounds General: Yes no CVA tenderness Back/Spine/Pelvis Back: no CVA tenderness Skin General skin exam: elasticity normal and turgor normal Neuro General: oriented to person, oriented to place, oriented to time, patient oriented x3, moves all extremities, no focal motor deficits and CN's II-XI intact bilaterally Cranial nerves: Yes Equal, round and reactive pupils present Cognition (Neuro): normal cognition Motor exam (neuro): 5/5 motor strength present throughout, Normal motor muscle tone present throughout and Motor abnormalities not present Extrem General: Yes full ROM, Yes no pedal edema and Yes no calf tenderness Psych Mental Status: mental status grossly normal Affect: normal affect Thought process: Normal thought process present Medications Administered Discontinued Medications Generic Name Dose Route Start Last Admin Trade Name Freq PRN Reason Stop Dose Admin Diphenhydramine HCl 25 mg 08/12/23 06:38 08/12/23 06:53 Diphenhydramine Hcl 50 Mg/Ml Vial IVPUSH 08/12/23 06:39 25 mg ONCE ONE Administration Sodium Chloride 1,000 mls @ 999 mls/hr 08/12/23 06:45 08/12/23 06:54 Ns IV 08/12/23 07:45 999 mls/hr .Q1H1M BELLE Administration Ketorolac Tromethamine 15 mg 08/12/23 06:38 08/12/23 06:53 Ketorolac Tromethamine 15 Mg/Ml Vial IVPUSH 08/12/23 06:39 15 mg ONCE ONE Administration Metoclopramide HCl 10 mg 08/12/23 06:38 08/12/23 06:53 Metoclopramide Hcl 10 Mg/2 Ml Vial IVPUSH 08/12/23 06:39 10 mg ONCE ONE Administration Medical Decision Making Medical Decision Making [facility] Narrative: Patient is a 52-year-old female with history of T2DM, fibromyalgia, vertigo, migraines presenting to the ED with complaint of headache for the past week. On exam patient is awake, A+Ox3, VS WNL, afebrile, normal neurological exam without focal deficits, physical exam findings as above. Given reported symptoms and physical exam findings, initial differential includes migraine versus tension headache. No red flag findings concerning for ICH/SAH, temporal/giant cell arteritis, psudotumor, meningitis. Labs unremarkable, normal LFTs. Will treat with IV fluids, metoclopramide, ketorolac, diphenhydramine. Patient reports full resolution of headache with medications administered in the ED and is requesting discharge home. Instructed patient to follow-up with primary care provider discussed which medications are appropriate for her to use for her headaches, given her recent elevated LFTs. Return precautions discussed at bedside. Patient verbalized understanding of and agreement with plan. Differential Diagnosis Differential Diagnoses: The differential diagnosis associated with the presentation includes As per MDM. Lab Data [facility] Lab Attestation statement: I reviewed the patient's lab results. As per MDM. 08/12/23 05:13 08/12/23 05:13 Labs: Lab Results 08/12/23 08/12/23 Range/Units 05:13 06:34 WBC 6.2 (4.8-10.8) X10*3/uL RBC 4.14 L (4.20-5.50) X10*6/uL Hgb 13.1 (12.0-16.0) g/dl Hct 39.0 (37.0-47.0) % MCV 94.2 (80.0-98.0) fL MCH 31.6 (27.0-33.0) pg MCHC 33.6 (31.0-35.0) g/dl RDW 13.4 (11.0-16.0) % Plt Count 260 D (160-400) X10*3/uL MPV 9.5 (9.4-12.3) fL Immature Gran % (Auto) 0.3 (0.0-0.4) % Neut % (Auto) 55.4 (45-73) % Lymph % (Auto) 34.3 (20-40) % [place] % (Auto) 6.9 (2-11) % Eos % (Auto) 2.1 (0-4) % Baso % (Auto) 1.0 (0-2) % Lymph # (Auto) 2.1 (1.2-4.9) X10*3/uL [place] # (Auto) 0.4 (0.1-1.2) X10*3/uL Eos # (Auto) 0.1 (0.0-0.4) X10*3/uL Baso # (Auto) 0.1 (0.0-0.2) X10*3/uL Abs Immat Gran (auto) 0.02 (0.00-0.03) X10*3/uL Absolute Neuts (auto) 3.5 (2.0-8.3) x10*3/uL Absolute Nucleated RBC 0.000 (0.0-0.012) X10*3/uL Nucleated RBC % (auto) 0.0 (0.0-0.2) /100WBC Sodium 145 (135-145) mmol/L Potassium 4.2 (3.3-5.1) mmol/L Chloride 113 H (96-108) mmol/L Carbon Dioxide 25 (22-29) mmol/L Anion Gap 11 L (12-20) BUN 8 L (9-16) mg/dL Creatinine 0.80 (0.5-1.4) mg/dL Estim Creat Clear Calc 84.6 Estimated GFR > 60 Random Glucose 94 (60-115) mg/dL Calcium 9.2 (8.4-10.2) mg/dL Total Bilirubin 0.3 (0.0-1.0) mg/dL Direct Bilirubin 0.1 (0.0-0.5) mg/dL AST 20 (5-31) U/L ALT 19 (0-31) U/L Alkaline Phosphatase 93 (39-117) U/L Total Protein 6.3 L (6.5-8.0) g/dL Albumin 4.0 (3.5-5.0) g/dL Urine Color Yellow Urine Appearance Clear Urine pH 7.0 (5.0-9.0) Ur Specific [place] 1.015 (1.005-1.025) Urine Protein Negative (Neg-Trace) mg/dL Urine Glucose (UA) Negative (Negative) mg/dL Urine Ketones Negative (Negative) mg/dL Urine Blood Negative (Negative) Urine Nitrite Negative (Negative) Ur Leukocyte Esterase Small (1+) H (Negative) Urine RBC 0-2 (0-2) /HPF Urine WBC 0-5 (0-5) /HPF Ur Squamous Epith Cells 3-5 (0-2) /HPF Urine Bacteria Trace (None Seen) Hyaline Casts 0-2 (0-2) /LPF Urine Test NEGATIVE (NEGATIVE) External Record Review External record reviewed: Inpatient record, Office record and Outpatient record Discharge Plan Discharge Clinical Impression: Migraine Patient Disposition: Home, Self-Care Instructions: Migraine Headache (ED) Additional Instructions: You have been evaluated in the emergency department today for headache. Your evaluation did not show evidence of medical conditions requiring emergent intervention at this time, and your pain improved with medication in the ED. Please follow up with your primary care provider to discuss which medications are safe/appropriate for you to use. Return to the emergency department if you experience worsening or uncontrolled pain, vision changes, recurrent vomiting, difficulty with normal activities, abnormal behavior, difficulty walking, numbness, weakness, or any other concerning symptoms. Prescriptions: No Action meclizine 12.5 mg tablet 12.5 mg PO DAILY PRN (Reason: dizziness) Qty: 20 1RF fluticasone propion-salmeterol [Advair Diskus] 250-50 mcg/dose blister with device 1 inh inhalation BID Qty: 180 3RF duloxetine 30 mg capsule,delayed release(DR/EC) 30 mg PO BID Qty: 180 3RF cetirizine 10 mg tablet 10 mg PO DAILY Qty: 90 3RF ezetimibe 10 mg tablet 10 mg PO BEDTIME Qty: 90 3RF (DME) incontinence pad See Rx Instructions .Route .MEDSUPPLY Qty: 120 8RF Rx Instructions: As directed 4 times a day as needed (DME) blood-glucose meter [FreeStyle Lite Meter] Kit See Rx Instructions .Route Qty: 1 0RF Rx Instructions: As directed (DME) FreeStyle Lite Strips Strip See Rx Instructions .Route Qty: 300 1RF Rx Instructions: test blood sugar 3 times per day (DME) lancets [FreeStyle Lancets] 28 gauge misc See Rx Instructions .Route Qty: 300 1RF Rx Instructions: test blood sugar 3 times per day metformin 750 mg tablet extended release 24 hr 750 mg PO BID 90 Days Qty: 180 1RF gabapentin 400 mg capsule 400 mg PO TID 30 Days Qty: 90 4RF (DME) pen needle, diabetic [BD Vanessa 2nd Gen Pen Needle] 32 gauge x 5/32 needle See Rx Instructions .Route Qty: 100 3RF Rx Instructions: Use to inject insulin once a day Myrbetriq 25 mg tablet extended release 24 hr 25 mg PO DAILY 90 Days Qty: 90 1RF ropinirole 0.5 mg tablet 0.5 mg PO BEDTIME Qty: 90 1RF cholecalciferol (vitamin D3) 25 mcg (1,000 unit) tablet 25 mcg PO DAILY Qty: 90 1RF omeprazole 20 mg capsule,delayed release(DR/EC) 20 mg PO DAILY@0630 Qty: 30 2RF Cholestyramine Light 4 gram powder 4 g PO BID Qty: 231 3RF Rx Instructions: administer w/meal; avoid other meds within 1hr before or 4-6hr after dose amitriptyline 50 mg Tablet 50 mg PO BEDTIME tpalmthqxw-avmhktbaniwio-yfmz [Fioricet] 50-300-40 mg capsule 1 cap PO Q8H PRN (Reason: migraine headae) Qty: 14 0RF fluticasone propionate [Flonase Allergy Relief] 50 mcg/actuation spray,suspension 2 spray intranasal DAILY Qty: 16 0RF Rx Instructions: administer into each nostril ibuprofen 600 mg tablet 600 mg PO Q6H PRN (Reason: pain) Qty: 20 0RF clonazepam 1 mg tablet 1 mg PO BID PRN (Reason: Anxiety) (DME) cane with quad tips See Rx Instructions .Route .MEDSUPPLY Qty: 1 0RF Rx Instructions: use as directed Salonpas(m.salicylate-menthol) 10-3 % adhesive patch,medicated 1 patch topical Q8-12H PRN (Reason: muscle pain) Qty: 20 1RF Rx Instructions: do not exceed 2 doses in a 24 hour period albuterol sulfate 2.5 mg /3 mL (0.083 %) solution for nebulization 2.5 mg inhalation QID PRN (Reason: shortness of breath or wheezing) Qty: 75 0RF albuterol sulfate [ProAir HFA] 90 mcg/actuation HFA aerosol inhaler 2 puff inhalation Q6H PRN (Reason: shortness of breath or wheezing) Qty: 18 5RF Tresiba FlexTouch U-100 100 unit/mL (3 mL) insulin pen 18 unit subcut BEDTIME 90 Days Qty: 30 4RF ondansetron 4 mg tablet,disintegrating 4 mg PO DAILY PRN (Reason: Nausea) Qty: 14 0RF alcohol swabs [Alcohol Prep Pads] Pads, Medicated 1 pad topical TID Qty: 200 2RF Trulicity 3 mg/0.5 mL pen injector 3 mg subcut FR@1000 Qty: 2 5RF zolpidem 10 mg tablet 10 mg PO BEDTIME PRN (Reason: Insomnia) Citrucel 500 mg tablet 500 mg PO DAILY Qty: 90 3RF Rx Instructions: take it with full glass of water topiramate 100 mg tablet 100 mg PO BID nortriptyline 25 mg capsule 25 mg PO BEDTIME bisacodyl [Dulcolax (bisacodyl)] 5 mg tablet,delayed release (DR/EC) 10 mg PO BEDTIME Qty: 180 4RF Creon 36,000-114,000- 180,000 unit capsule,delayed release(DR/EC) 1 cap PO QID Qty: 120 5RF Rx Instructions: administer with meals and/or snacks
[2023-08-12 06:42] LABS: UPreg QC Valid YES; Urine Pregnancy NEGATIVE (NEGATIVE)
[2023-08-12 06:51] LABS: Appearance Urine Clear; Color Urine Yellow; Glucose Urine UA Negative (Negative); Leukocyte Esterase Urine Small (1+) (Negative); Nitrite Urine Negative (Negative); Specific Gravity - Urine 1.015 (1.005-1.025); UMIC TRIGGER UACC YES; Urine Blood Negative (Negative); Urine Ketones Negative (Negative); Urine Protein Negative (Neg-Trace)
[2023-08-12] MEDS: diphenhydrAMINE HCL 50 MG/ML VIAL 25 MG IVPUSH (06:53)
[2023-08-12] MEDS: Metoclopramide HCl 10 MG/2 ML VIAL IVPUSH (06:53)
[2023-08-12] MEDS: Ketorolac Tromethamine 15 MG/ML VIAL IVPUSH (06:53)
[2023-08-12] MEDS: 0.9 % Sodium Chloride 1,000 ML 999 ML IV (06:54)
[2023-08-12 07:04] LABS: Bacteria Urine Trace (None Seen); Hyaline Casts Urine 0-2 /LPF (0-2); RBC Urine 0-2 /HPF (0-2); UACC Culture Trigger YES; WBC Urine 0-5 /HPF (0-5)
[2023-08-12 07:40] VITALS: BP 122/63; PULSE 75; RESP 20; TEMP 36.4; O2SAT 97
--- NOTE | 2023-08-12 08:28 | PC.NURSE ---
Pt reports her headache is gone, feels much better. Reports she is ready for discharge home.
== END 2023-08-12 08:34 | disposition home or self-care (01) ==
PROVIDERS: Registered Nurse Emergency; Emergency Provider Emergency Medicine; PCP Internal Medicine
DX: G43.909 Migraine, unspecified, not intractable, without status migrainosus (principal); E11.9 Type 2 diabetes mellitus without complications; E78.5 Hyperlipidemia, unspecified; Z79.4 Long term (current) use of insulin; Z79.899 Other long term (current) drug therapy
CPT/HCPCS: 36415; 80053; 80076; 81001; 81025; 82248; 85025; 87086; 96374; 96375; 99284; 99285; J1200; J1885; J2765

== ENCOUNTER → 2023-09-02 08:02 | Outpatient (BNVA) | payer OTHER, SELFPAY | PROVIDERS: PCP Internal Medicine; Visit Provider Nurse Practitioner Family ==

== ENCOUNTER 2023-09-09 08:14 | Outpatient (AMB) | payer OTHER, SELFPAY ==
--- NOTE | 2023-09-09 08:42 | MHC.OFFVIS ---
Intake Intake Visit Reasons: 3m follow up(set) Intake Note: Patient presents today for follow up visit for microscopic hematuria, frequency, urgency, nocturia Urology Medications: myrbetriq Blood Thinner: none Patient stated she has a burning and itching sensation during urination. PVR: 0ml Tread Cutter Required: Yes Tread Cutter Name: ABDON COMERLENNIE Accompanied by: Self / Same As Patient Allergies aspirin Allergy (Intermediate, Verified 09/09/23 09:29) rash latex [LATEX] Allergy (Mild, Verified 09/09/23 09:29) HIVES/RASH Penicillins Allergy (Mild, Verified 09/09/23 09:29) unknown amoxicillin Adverse Reaction (Intermediate, Verified 09/09/23 09:29) diarrhea Beef Containing Products Adverse Reaction (Intermediate, Verified 09/09/23 09:29) DIARRHEA/VOMITING sumatriptan [From Imitrex] Adverse Reaction (Verified 09/09/23 09:29) Palpitations Red Meats And Seafood Allergy (Intermediate, Uncoded 09/09/23 09:29) inflammation and swelling Medication List - Last Reconciled 09/09/23 by KYLEIGH Morin [incontinence pad As directed 4 times a day as needed] albuterol sulfate 2.5 mg (3 mL) inhalation QID PRN albuterol sulfate 90 mcg/actuation (Ventolin HFA) 2 puffs inhalation Q6H PRN alcohol swabs (Alcohol Prep Pads) 1 pad topical TID bisacodyl (Dulcolax (bisacodyl)) 10 mg (2 x 5 mg) PO BEDTIME blood sugar diagnostic (FreeStyle Lite Strips) test blood sugar 3 times per day blood-glucose meter (FreeStyle Lite Meter kit) As directed [body wipes As directed 6-7 per day] [cane with quad tips use as directed] cetirizine 10 mg PO DAILY cholecalciferol (vitamin D3) 25 mcg PO DAILY cholestyramine-aspartame 4 gram (Cholestyramine Light) 4 grams PO BID clonazepam 1 mg PO BID PRN diaper,brief,adult,disposable As directed up to 3 per day duloxetine 30 mg PO BID ezetimibe 10 mg PO BEDTIME fluticasone propion-salmeterol 250-50 mcg/dose (Advair Diskus) 1 inh inhalation BID fluticasone propionate 50 mcg/actuation (Flonase Allergy Relief) 2 sprays intranasal DAILY gabapentin 400 mg PO TID 30 days ibuprofen 600 mg PO Q6H PRN insulin degludec (Tresiba FlexTouch U-100 insulin) 18 units (0.18 mL) subcut BEDTIME 90 days lancets (FreeStyle Lancets) test blood sugar 3 times per day mzvboq-befliqzf-slghbbg 36,000-114,000- 180,000 unit (Creon) 1 cap PO QID meclizine 12.5 mg PO DAILY PRN methyl salicylate-menthol 10-3 % (Salonpas (methyl salicylate-menthol)) 1 patch topical Q8-12H PRN methylcellulose (laxative) (Citrucel) 500 mg PO DAILY mirabegron ER (Myrbetriq) 25 mg PO DAILY 90 days nortriptyline 25 mg PO BEDTIME omeprazole 20 mg PO DAILY@0630 ondansetron 4 mg PO DAILY PRN pen needle, diabetic (BD Vanessa 2nd Gen Pen Needle) Use to inject insulin once a day ropinirole 0.5 mg PO BEDTIME topiramate 100 mg PO BID Trulicity (dulaglutide) 3 mg (0.5 mL) subcut FR@1000 NS zolpidem 10 mg PO BEDTIME PRN HPI HPI Comments History of Present Illness Details Demi is a 52-year-old Mongolian-speaking female patient of Dr. Nova. She has a past medical history of diabetes, asthma, depression, anxiety, bilateral hearing loss, arthritis, GERD, dyslipidemia, obesity, restless leg syndrome, vertigo, and fibromyalgia. Of note, patient was seen approximately 3 months ago at which time an in office cystoscopy was performed by Dr. Carrasco that noted debris otherwise no suspicious bladder lesions were visualized. Office cystoscopy was performed as patient with a history of microscopic hematuria in the setting of nicotine dependence. During last office visit urine was sent for Nataly for further assessment evaluation and has since completed antibiotic therapy as prescribed. She reports she had been doing well with her lower urinary tract symptoms of dysuria, urinary pressure, and urinary urgency up until approximately 4 days ago when she feels the symptoms reoccured. She reports compliance with 25 mg of Myrbetriq daily and also feels this has helped with her urinary urgency. In office urinalysis results reviewed with the patient today. PVR 0ml's. She otherwise denies hematuria, foul smelling urine, changes to urinary stream, flank pain, fever, and or chills. She otherwise offers no other issues or concerns at this time. [facility] Medical History Elevated liver transaminase level Microhematuria Candidiasis Tubular adenoma Controlled diabetes mellitus type II without complication Diarrhea Lower thoracic back pain Pancreatic insufficiency Pelvic pain Mild intermittent asthma Depression with anxiety COVID-19 vaccination declined Decreased hearing of right ear Tinnitus of right ear Arthritis Mixed stress and urge incontinence GERD (gastroesophageal reflux disease) Type 2 diabetes mellitus with microalbuminuria, with long-term current use of insulin B12 deficiency Non-toxic multinodular goiter Dyslipidemia Obesity (BMI 30-39.9) Restless leg syndrome Vertigo Fibromyalgia Anxiety Surgical History H/O thyroidectomy Hx of BSO (bilateral salpingo-oophorectomy) Hx of laparoscopy Hx of colonoscopy History of esophagogastroduodenoscopy (EGD) Hx of appendectomy Hx of cholecystectomy Hx of section Family History Father Diabetes mellitus Heart murmur Mother Diabetes mellitus HTN (hypertension) Glaucoma Melanoma Social History Household Members: Family Housing: House Do you presently have visiting nurse or other home services: Yes Alcohol intake: never Patient Tobacco Use Status: Former Tobacco user Quit Date: 1 year ago Tobacco use type: Cigarette Cigarettes Per Day: 5 Years Smoked: 34 e-Cigarette/Vaping Use: Never Used Advance Directives Date on File: 06/21/22 service: No Current occupational status: unemployed Sexual orientation: Straight/Heterosexual Gender identity: Female Cognitive needs: No Hearing needs: No Vision needs: No Review of Systems Const Reports as per HPI Eyes Reports no additional complaints ENT Reports as per HPI Card Reports as per HPI Resp Reports as per HPI GI Reports as per HPI Reports as per HPI Musc Reports as per HPI Neuro Reports as per HPI Psych Reports as per HPI Endo Reports as per HPI Physical Exam Const General: cooperative, comfortable, no acute distress, well developed, alert and awake Nutritional Appearance: overweight Orientation/consciousness: patient oriented x3 HEENT Head: Yes normal to inspection, Yes normocephalic and Yes atraumatic Ears: hearing grossly normal bilaterally Eyes General: appearance normal, both eyes and all related structures Neck Neck: Yes normal visual inspection and Yes trachea midline Chest Chest palpation & inspection: normal inspection of the chest Resp Effort & Inspection: normal respiratory effort and able to speak in complete sentences Cardio Rate: regular rate GI Inspection: Yes normal to inspection General: Yes no CVA tenderness Back/Spine/Pelvis Back: no CVA tenderness Skin General skin exam: no rashes or lesions noted Neuro General: patient oriented x3 Extrem General: Yes normal to inspection Psych Appearance: grossly normal and well kempt Mental Status: mental status grossly normal Speech and movement: Normal speech and movement present and Clear speech present Affect: Sad affect present Attitude: cooperative Thought process: Normal thought process present Thought content: Normal thought content present Insight: Fair insight present (Psych) Judgement: Fair judgement present (Psych) Office Procedures Post Void Residual Post Residual Void Post Void Residual (PVR): 0 37063-Ueov Void Residual by ultrasound Results AMB Urinalysis, Automated UA Leukoctes 0 John/uL Last Edit by Demi Padilla CMA on 09/09/23 09:00 UA Nitrite Negative Last Edit by Demi Padilla CMA on 09/09/23 09:00 UA Urobilinogen 0.2 mg/dL Last Edit by Demi Padilla CMA on 09/09/23 09:00 UA Protein 0 mg/dL Last Edit by Demi Padilla CMA on 09/09/23 09:00 UA pH 6.0 Last Edit by Demi Padilla CMA on 09/09/23 09:00 UA Blood 0 Jian/uL Last Edit by Demi Padilla CMA on 09/09/23 09:00 UA Specific [facility] 1.015 Last Edit by Demi Padilla CMA on 09/09/23 09:00 UA Ketone Negative Last Edit by Demi Padilla CMA on 09/09/23 09:00 UA Bilirubin 0 mg/dL Last Edit by Demi Padilla CMA on 09/09/23 09:00 UA Glucose 0 mg/dL Last Edit by Demi Padilla CMA on 09/09/23 09:00 Results Reviewed Results Reviewed: Laboratory Last Values Urine pH (Auto) 6.0 09/09/23 08:57 Specific [facility] (Auto) 1.015 09/09/23 08:57 Urine Protein (Auto) 0 mg/dL 09/09/23 08:57 Glucose (UA)(Auto) 0 mg/dL 09/09/23 08:57 Urine Ketones (Auto) Negative 09/09/23 08:57 Urine Blood (Auto) 0 Jian/uL 09/09/23 08:57 Urine Nitrite (Auto) Negative 09/09/23 08:57 Urine Bilirubin (Auto) 0 mg/dL 09/09/23 08:57 Urine Urobilinogen (Auto) 0.2 mg/dL 09/09/23 08:57 Leukocyte Esterase (Auto) 0 John/uL 09/09/23 08:57 Assessment & Plan Assessment & Plan (1) Microhematuria: Code(s): R31.29 - Other microscopic hematuria (2) Nicotine dependence: Code(s): F17.200 - Nicotine dependence, unspecified, uncomplicated (3) Lower urinary tract symptoms: Code(s): R39.9 - Unspecified symptoms and signs involving the genitourinary system (4) Urinary urgency: Code(s): R39.15 - Urgency of urination (5) Urinary frequency: Code(s): R35.0 - Frequency of micturition (6) Nocturia: Code(s): R35.1 - Nocturia (7) Sensation of pressure in bladder area: Code(s): R39.89 - Other symptoms and signs involving the genitourinary system Plan In office urinalysis results reviewed with the patient today; as noted above. PVR 0 mL. Start Estrace cream as discussed and prescribed. Continue Myrbetriq 25 mg daily as discussed and prescribed. Discussed bladder triggers/irritants. Discussed pelvic floor therapy; however patient declines. Discussed, educated, encouraged a new port through drinking plenty of water daily. Discussed, educated, and stressed the importance of limiting/quitting nicotine dependence for overall health and well-being. Follow-up in 3 months with PVR; or sooner with any issue, concerns, or questions. Orders: Orders AMB Urinalysis Automated 02/16/24 R33.9 - Retention of urine, unspecified AMB Post Void Residual by ultrasound 09/09/23 R33.9 - Retention of urine, unspecified Medications: New estradiol 0.01%(0.1mg/gram) vaginally 3 times a week; pea sized amount to urethra 3 times a week 30 days 42.5 grams 2RF Refilled mirabegron ER (Myrbetriq) 25 mg PO DAILY 90 days 90 tabs 3RF N30.10 - Interstitial cystitis (chronic) without hematuria, N32.81 - Overactive bladder, R35.1 - Nocturia, R39.15 - Urgency of urination Patient Instructions: The patient had an opportunity to ask questions regarding the treatment plan. All questions were answered. Physical exam, labs, and imaging were discussed and reviewed in detail. As well as risks, benefits, and discussion of treatment choices. No major barriers to understanding were identified. The patient expressed understanding and agreement with the above treatment plan. The patient was made aware they should contact our office by phone for worsening of their current condition, the appearance of new symptoms, or with any questions or concerns. Compliance is encouraged with any medications and follow up testing that is ordered. It is a privilege to be allowed the opportunity to participate in? your urological care.? Again, if you have any questions or concerns If you have any questions or concerns please do not hesitate to contact me. The office is [phone]. This note is constructed using voice recognition software. While every effort has been made to ensure accuracy mold maintenance technician errors may have been included. Yours sincerely, KYLEIGH Morin Coding Level of Care Code Est Pt Level 4 (29643) Diagnoses Microhematuria R31.29 Nicotine dependence F17.200 Lower urinary tract symptoms R39.9 Urinary urgency R39.15 Urinary frequency R35.0 Nocturia R35.1 Sensation of pressure in bladder area R39.89 CPT Codes Post Residual Void - PVR CPT Code: 51901-[id number] Void Residual by ultrasound ([id number])
== END 2023-09-09 09:35 | disposition home or self-care (01) ==
PROVIDERS: PCP Internal Medicine; Visit Provider Nurse Practitioner Family
DX: R31.29 Other microscopic hematuria (principal); F17.200 Nicotine dependence, unspecified, uncomplicated; R39.9 Unspecified symptoms and signs involving the genitourinary system; R39.15 Urgency of urination; R35.0 Frequency of micturition; R35.1 Nocturia; R39.89 Other symptoms and signs involving the genitourinary system
CPT/HCPCS: 99214

== ENCOUNTER → 2023-09-09 08:14 | Outpatient (BNVA) | payer OTHER, SELFPAY | PROVIDERS: PCP Internal Medicine; Visit Provider Nurse Practitioner Family | DX: R31.29 Other microscopic hematuria (principal); R39.9 Unspecified symptoms and signs involving the genitourinary system; R39.15 Urgency of urination; R35.0 Frequency of micturition; R35.1 Nocturia; R39.89 Other symptoms and signs involving the genitourinary system; F17.210 Nicotine dependence, cigarettes, uncomplicated | CPT/HCPCS: 51798; 81003; 99212 ==

== ENCOUNTER 2023-10-10 07:37 | Outpatient (AMB) | payer OTHER, SELFPAY ==
--- NOTE | 2023-10-10 08:07 | A.OFFVIS_ITS ---
Intake Vital Signs 10/10/23 08:09 Height 5 ft 4 in Weight 170 lb BMI 29.2 BP 108/52 L Blood Pressure Location Lt brachial Position Sitting Pulse 93 Intake Visit Reasons: 6 month follow up Intake Note: Patient follow up for abdominal pain. Patient denies any GI issues for today. Roof Fixer Required: Yes Roof Fixer Name: [facility] Interpeter Accompanied by: Self / Same As Patient Allergies aspirin Allergy (Intermediate, Verified 10/10/23 08:06) rash latex [LATEX] Allergy (Mild, Verified 10/10/23 08:06) HIVES/RASH Penicillins Allergy (Mild, Verified 10/10/23 08:06) unknown amoxicillin Adverse Reaction (Intermediate, Verified 10/10/23 08:06) diarrhea Beef Containing Products Adverse Reaction (Intermediate, Verified 10/10/23 08:06) DIARRHEA/VOMITING sumatriptan [From Imitrex] Adverse Reaction (Verified 10/10/23 08:06) Palpitations Red Meats And Seafood Allergy (Intermediate, Uncoded 09/09/23 09:29) inflammation and swelling HPI 6 month follow up HPI Details LAST VISIT GERD (gastroesophageal reflux disease) Continue omeprazole daily and famotidine at bedtime. Continue avoiding dietary triggers like 10 snacking. Staying upright for minimum 3 hours after meals discussed with patient. Pancreatic insufficiency Creon not on patient's medication list however patient reports that she is taking it. We will order Creon so she can continue taking it with meals up to 4 times a day Diarrhea Continue cholestyramine. Patient will avoid food high in fat and fried. I will see her in 6 months, sooner on as needed basis. Patient is agreeable to this plan and verbalizes understanding of instructions. She was given the opportunity to ask questions and all questions answered. ? Thank you for allowing me to participate in her care Plan Medications New zgcnqf-emycbkhm-ptougde 36,000-114,000- 180,000 unit (Creon) administer with meals and/or snacks 1 cap PO QID 120 caps 5RF K86.89 Refilled bisacodyl (Dulcolax (bisacodyl)) 10 mg (2 x 5 mg) PO BEDTIME 180 tabs 4RF cholestyramine-aspartame 4 gram (Cholestyramine Light) administer w/meal; avoid other meds within 1hr before or 4-6hr after dose 4 grams PO BID 231 grams 3RF TODAY'S VISIT: Patient is here today for follow-up. Since last time I have her patient has been doing better she has been taking Creon and her symptoms of abdominal bloating have subsided. Patient is taking cholestyramine twice a day with lunch and dinner. Denies any postprandial loose stools. Patient is taking Dulcolax tablets at bedtime. Patient is moving her bowels better. Denies melena, hematochezia, unintentional weight loss or ribbon like stools. Patient denies dyspepsia, dysphagia or odynophagia. Patient states that she has been feeling well. Reviewed patient's lab work and her liver enzymes normalized last lab work done end of July. Patient denies any dyspepsia, dysphagia or odynophagia. Patient states that she is feeling much better. Denies any GI concerning symptoms. [facility] Medical History Elevated liver transaminase level Microhematuria Candidiasis Tubular adenoma Controlled diabetes mellitus type II without complication Diarrhea Lower thoracic back pain Pancreatic insufficiency Pelvic pain Mild intermittent asthma Depression with anxiety COVID-19 vaccination declined Decreased hearing of right ear Tinnitus of right ear Arthritis Mixed stress and urge incontinence GERD (gastroesophageal reflux disease) Type 2 diabetes mellitus with microalbuminuria, with long-term current use of insulin B12 deficiency Non-toxic multinodular goiter Dyslipidemia Obesity (BMI 30-39.9) Restless leg syndrome Vertigo Fibromyalgia Anxiety Surgical History H/O thyroidectomy Hx of BSO (bilateral salpingo-oophorectomy) Hx of laparoscopy Hx of colonoscopy History of esophagogastroduodenoscopy (EGD) Hx of appendectomy Hx of cholecystectomy Hx of section Family History Father Diabetes mellitus Heart murmur Mother Diabetes mellitus HTN (hypertension) Glaucoma Melanoma Social History Household Members: Family Housing: House Do you presently have visiting nurse or other home services: Yes Alcohol intake: never Patient Tobacco Use Status: Former Tobacco user Quit Date: 1 year ago Tobacco use type: Cigarette Cigarettes Per Day: 5 Years Smoked: 34 e-Cigarette/Vaping Use: Never Used Advance Directives Date on File: 06/21/22 service: No Current occupational status: unemployed Sexual orientation: Straight/Heterosexual Gender identity: Female Cognitive needs: No Hearing needs: No Vision needs: No Review of Systems Const Denies weight gain and Denies weight loss ENT Reports no additional complaints, Denies dysphagia and Denies odynophagia Card Reports no additional complaints Resp Reports no additional complaints GI Denies abdominal pain, Denies belching, Denies melena, Denies bloating, Denies change in bowel habits, Denies dysphagia, Denies excessive flatus, Denies dyspepsia, Denies heartburn, Denies diarrhea, Denies loose stools, Denies nausea, Denies odynophagia and Denies vomiting Musc Reports no additional complaints Neuro Reports no additional complaints Psych Reports no additional complaints Endo Reports no additional complaints Physical Exam Vital Signs: Last Vital Signs Pulse 93 10/10/23 08:09 BP 108/52 L 10/10/23 08:09 BMI result Body Mass Index 29.2 Const General: healthy appearing, no acute distress and well developed Nutritional Appearance: obese Orientation/consciousness: patient oriented x3 Resp Effort & Inspection: normal respiratory effort, able to speak in complete sentences, no tracheal deviation and symmetric chest movement Auscultation: clear to auscultation bilaterally Cardio Rate: regular rate GI Inspection: Yes normal to inspection, No distended and Yes obesity Palpation (GI): Soft to palpation, not firm, nontender and No hepatosplenomegaly present Auscultation: normal bowel sounds General: Yes no CVA tenderness Back/Spine/Pelvis Back: no CVA tenderness Skin General skin exam: elasticity normal, turgor normal and dry skin Neuro General: patient oriented x3 Psych Appearance: grossly normal Mental Status: mental status grossly normal Assessment & Plan Assessment & Plan (1) GERD (gastroesophageal reflux disease): Code(s): K21.9 - Gastro-esophageal reflux disease without esophagitis Qualifiers: Esophagitis presence: esophagitis presence not specified Qualified Code(s): K21.9 - Gastro-esophageal reflux disease without esophagitis (2) Pancreatic insufficiency: Code(s): K86.89 - Other specified diseases of pancreas (3) Diarrhea: Code(s): R19.7 - Diarrhea, unspecified Qualifiers: Diarrhea type: functional diarrhea Qualified Code(s): K59.1 - Functional diarrhea (4) Elevated liver transaminase level: Code(s): R74.01 - Elevation of levels of liver transaminase levels Plan Continue Creon with meals. Patient will take omeprazole every morning half an hour before breakfast. Discussed with patient avoiding dietary triggers and late night snacking. Staying upright for minimum 3 hours after meals discussed patient. Cholestyramine with lunch and dinner. Patient will return in 6 months, sooner on as needed basis. Patient is agreeable to this plan and verbalizes understanding of instructions. She was given the opportunity to ask questions and all questions answered. Thank you for allowing me to participate in her care Medications: Refilled fujcon-zccaklqg-kuqtjbu 36,000-114,000- 180,000 unit (Creon) administer with meals and/or snacks 1 cap PO QID 120 caps 5RF K86.89 - Other specified diseases of pancreas bisacodyl (Dulcolax (bisacodyl)) 10 mg (2 x 5 mg) PO BEDTIME 180 tabs 4RF omeprazole 20 mg PO DAILY@0630 30 caps 2RF gerd Coding Level of Care Code Est Pt Level 3 (73365) Diagnoses Gastroesophageal reflux disease, unspecified whether esophagitis present K21.9 Esophagitis presence: esophagitis presence not specified Pancreatic insufficiency K86.89 Functional diarrhea K59.1 Diarrhea type: functional diarrhea Elevated liver transaminase level R74.01 Time Spent (min) 25 Comment 15 minutes spent with patient and additional 10 minutes spent reviewing her records
[2023-10-10 08:09] VITALS: BP 108/52; PULSE 93; BMI 29.2
== END 2023-10-10 08:29 | disposition home or self-care (01) ==
PROVIDERS: PCP Internal Medicine; Visit Provider Nurse Practitioner Family
DX: K21.9 Gastro-esophageal reflux disease without esophagitis (principal); K86.89 Other specified diseases of pancreas; K59.1 Functional diarrhea; R74.01 Elevation of levels of liver transaminase levels
CPT/HCPCS: 99213

== ENCOUNTER → 2023-10-10 07:37 | Outpatient (BNVA) | payer OTHER, SELFPAY | PROVIDERS: PCP Internal Medicine; Visit Provider Nurse Practitioner Family | DX: K21.9 Gastro-esophageal reflux disease without esophagitis (principal); K86.89 Other specified diseases of pancreas; K59.1 Functional diarrhea; R74.01 Elevation of levels of liver transaminase levels | CPT/HCPCS: 99212 ==

== ENCOUNTER 2023-11-03 06:09 | Outpatient (REF) | payer OTHER, SELFPAY ==
[2023-11-03 08:12] LABS: Estimated Average Glucose 105 mg/dL; Hemoglobin A1c % 5.3 % (<6.0)
[2023-11-03 08:37] LABS: Creatinine Urine 110.73 mg/dL; Microalbumin Urine < 5.0 mg/L
[2023-11-03 08:40] LABS: Alanine Aminotransferase 24 U/L (0-31); Anion Gap 11 (12-20); Aspartate Amino Transferase 22 U/L (5-31); Blood Urea Nitrogen 14 mg/dL (9-16); Calcium 9.5 mg/dL (8.4-10.2); Carbon Dioxide 24 mmol/L (22-29); Chloride 110 mmol/L (96-108); Cholesterol 175 mg/dL (<200); Estimated Glomerular Filt Rate > 60; Glucose Fasting 93 mg/dL (60-99); HDL Cholesterol 44 mg/dL (>40); LDL Cholesterol Calculated 111 mg/dL (<100); Potassium 3.8 mmol/L (3.3-5.1); Sodium 141 mmol/L (135-145); Triglycerides 102 mg/dL (<150)
[2023-11-03 08:58] LABS: Vitamin D 25-OH Total 32.3 ng/mL (>30)
== END 2023-11-03 06:10 | disposition home or self-care (01) ==
LOC: HO.LAB 06:09
PROVIDERS: PCP Internal Medicine; Visit Provider Internal Medicine
DX: E11.9 Type 2 diabetes mellitus without complications (principal); E78.5 Hyperlipidemia, unspecified; E66.9 Obesity, unspecified
CPT/HCPCS: 36415; 80048; 80061; 82043; 82306; 82570; 83036; 84450; 84460

== ENCOUNTER 2023-11-04 07:34 | Outpatient (AMB) | payer OTHER, SELFPAY ==
--- NOTE | 2023-11-04 09:18 | A.OFFPC_ITS ---
Vital Signs 11/04/23 10:00 Height 5 ft 4 in Weight 172 lb BMI 29.5 BP 100/76 Blood Pressure Location Lt brachial Position Sitting Pulse 87 Pulse Source Pulse Oximeter Pulse Oximetry (%) 98 Oxygen Delivery Method Room Air Intake Visit Reasons: Annual PE Intake Note: Pt is here today for her PE: Last mammogram 12/06/22, papsmear 11/05/21, colonoscopy 12/15/21 Allergies aspirin Allergy (Intermediate, Verified 12/29/23 14:36) rash latex [LATEX] Allergy (Mild, Verified 12/29/23 14:36) HIVES/RASH Penicillins Allergy (Mild, Verified 12/29/23 14:36) unknown amoxicillin Adverse Reaction (Intermediate, Verified 12/29/23 14:36) diarrhea Beef Containing Products Adverse Reaction (Intermediate, Verified 12/29/23 14:36) DIARRHEA/VOMITING sumatriptan [From Imitrex] Adverse Reaction (Verified 12/29/23 14:36) Palpitations Red Meats And Seafood Allergy (Intermediate, Uncoded 12/29/23 14:36) inflammation and swelling Medication List - Last Reconciled 11/04/23 by Mali Nova MD [incontinence pad As directed 4 times a day as needed] albuterol sulfate 2.5 mg (3 mL) inhalation QID PRN albuterol sulfate 90 mcg/actuation (Ventolin HFA) 2 puffs inhalation Q6H PRN alcohol swabs (Alcohol Prep Pads) 1 pad topical TID bisacodyl (Dulcolax (bisacodyl)) 10 mg (2 x 5 mg) PO BEDTIME blood sugar diagnostic (FreeStyle Lite Strips) test blood sugar 3 times per day blood-glucose meter (FreeStyle Lite Meter kit) As directed [body wipes As directed 6-7 per day] [cane with quad tips use as directed] cetirizine 10 mg PO DAILY cholecalciferol (vitamin D3) 25 mcg PO DAILY cholestyramine-aspartame 4 gram (Cholestyramine Light) 4 grams PO BID clonazepam 1 mg PO BID PRN diaper,brief,adult,disposable As directed up to 3 per day diclofenac sodium 1% 2 grams topical QID PRN [disposable bed pad As directed] duloxetine 30 mg PO BID estradiol 0.01%(0.1mg/gram) vaginally 3 times a week; pea sized amount to urethra 3 times a week 30 days ezetimibe 10 mg PO BEDTIME fluticasone propion-salmeterol 250-50 mcg/dose (Advair Diskus) 1 inh inhalation BID fluticasone propionate 50 mcg/actuation (Flonase Allergy Relief) 2 sprays intranasal DAILY gabapentin 400 mg PO TID 30 days ibuprofen 600 mg PO Q6H PRN insulin degludec (Tresiba FlexTouch U-100 insulin) 18 units (0.18 mL) subcut BEDTIME 90 days lancets (FreeStyle Lancets) test blood sugar 3 times per day [id number] 36,000-114,000- 180,000 unit (Creon) 1 cap PO QID meclizine 12.5 mg PO DAILY PRN methyl salicylate-menthol 10-3 % (Salonpas (methyl salicylate-menthol)) 1 patch topical Q8-12H PRN methylcellulose (laxative) (Citrucel) 500 mg PO DAILY mirabegron ER (Myrbetriq) 25 mg PO DAILY 90 days nortriptyline 25 mg PO BEDTIME omeprazole 20 mg PO DAILY@0630 ondansetron 4 mg PO DAILY PRN pen needle, diabetic (BD Vanessa 2nd Gen Pen Needle) Use to inject insulin once a day ropinirole 0.5 mg PO BEDTIME topiramate 100 mg PO BID Trulicity (dulaglutide) 3 mg (0.5 mL) subcut FR@1000 NS zolpidem 10 mg PO BEDTIME PRN Tobacco use date assessed: 11/04/23 Dental Screening Dental Screen Date: 11/04/23 Did you have a dental visit in the last 12 months?: Yes Did you have a dental problem in the last 6 months where you did not have access to dental care?: No Was dental information given to patient?: Patient has dentist HPI Annual PE HPI Details 53-year-old lady here today for her phys ical exam. She is up-to-date with her cervical cancer screening and pelvic exam, sees Ifrah Lopes, last Pap smear was done in 2021 with negative findings. Up-to-date with her screening mammogram done November 2022, she is also up-to-date with her screening colonoscopy done [place] [address] Bolton [facility] Medical History (Updated 01/28/24 @ 03:42 by Mali Nova MD) Generalized osteoarthritis of multiple sites Elevated liver transaminase level Microhematuria Candidiasis Tubular adenoma Controlled diabetes mellitus type II without complication Diarrhea Lower thoracic back pain Pancreatic insufficiency Pelvic pain Mild intermittent asthma Depression with anxiety COVID-19 vaccination declined Decreased hearing of right ear Tinnitus of right ear Arthritis Mixed stress and urge incontinence GERD (gastroesophageal reflux disease) Type 2 diabetes mellitus with microalbuminuria, with long-term current use of insulin B12 deficiency Non-toxic multinodular goiter Dyslipidemia Obesity (BMI 30-39.9) Restless leg syndrome Vertigo Fibromyalgia Anxiety Surgical History H/O thyroidectomy Hx of BSO (bilateral salpingo-oophorectomy) Hx of laparoscopy Hx of colonoscopy History of esophagogastroduodenoscopy (EGD) Hx of appendectomy Hx of cholecystectomy Hx of section Family History Father Diabetes mellitus Heart murmur Arthritis Mother Diabetes mellitus HTN (hypertension) Glaucoma Melanoma Arthritis Sister Arthritis Social History Household Members: Family Housing: House Do you presently have visiting nurse or other home services: Yes Alcohol intake: never Patient Tobacco Use Status: Former Tobacco user Tobacco use type: Cigarette Cigarettes Per Day: 5 Years Smoked: 34 e-Cigarette/Vaping Use: Never Used Advance Directives Date on File: 06/21/22 service: No Current occupational status: unemployed Sexual orientation: Straight/Heterosexual Gender identity: Female Cognitive needs: No Hearing needs: No Vision needs: No Questionnaire Thrive Questionnaire Date Thrive assessed: 06/21/22 NANCY-7 AMB Questionnaire NANCY-7 Date NANCY - 7 assessed: 06/21/22 Source: Developed by Drs. Umair Drew, Amber Up, Gylnn Benson and colleagues, with an educational pola from [employer]. Review of Systems Const Reports no additional complaints, Denies difficulty sleeping and Denies headache(s) ENT Denies dizziness and Denies headache(s) Card Denies chest pain, Denies irregular heart rhythm, Denies lightheadedness and Denies dyspnea Resp Denies chest congestion and Denies dyspnea GI Reports no additional complaints Reports no additional complaints and Denies nipple discharge Musc Reports arthralgias and Reports stiffness Skin/Breast Denies breast pain, Denies breast mass, Denies nipple discharge and Denies rash Neuro Denies dizziness, Denies headache(s) and Denies seizure-like activity Psych Reports no additional complaints Endo Reports no additional complaints Jacek/Lymph Reports no additional complaints Aller/Immun Reports no additional complaints Physical exam (Primary Care) Vital Signs: Last Vital Signs Pulse 87 11/04/23 10:00 BP 100/76 11/04/23 10:00 Pulse Ox 98 11/04/23 10:00 Oxygen Delivery Method Room Air 11/04/23 10:00 BMI result Body Mass Index 29.5 Tobacco/Smoking Status: Tobacco use Status Tobacco use date assessed 11/04/23 11/04/23 10:05 Patient Tobacco Use Status Former Tobacco user 11/04/23 09:19 Tobacco use type Cigarette 11/04/23 09:19 e-Cigarette/Vaping Use Never Used 11/04/23 09:19 Thrive Assessment: Date of Thrive Assessment Date Thrive assessed 06/21/22 11/04/23 09:19 Const General: comfortable and no acute distress Orientation/consciousness: patient oriented x3 HENMT Head: Yes normocephalic Ears: external ears normal, TM's normal bilaterally and EAC's normal Face and sinus: Yes face symmetric Mouth: Normal oral and palatal mucosa present, oropharynx normal and moist mucous membranes Eyes General: appearance normal, both eyes and all related structures Conjunctivae: conjunctivae normal Sclerae: sclerae normal Neck Neck: Yes full ROM, Yes no lymphadenopathy and Yes supple Resp Auscultation: clear to auscultation bilaterally Cardio Rate: regular rate Rhythm: regular rhythm Heart sounds: S1 normal heart sound present and S2 normal heart sound present GI Inspection: Yes normal to inspection Palpation (GI): Soft to palpation, nontender, no guarding and no masses General: Yes no CVA tenderness Back/Spine/Pelvis Back: no CVA tenderness Skin General skin exam: no rashes or lesions noted Neuro General: patient oriented x3 Extrem General: Yes full ROM, Yes no joint enlargement, Yes no pedal edema and Yes normal gait Psych Appearance: grossly normal and well kempt Mental Status: mental status grossly normal Speech and movement: Normal speech and movement present Affect: normal affect Results Reviewed Results Reviewed: mason: Demi Lundberg Age/Sex: 52/F : 1970 Unit#: [id number] Attend Dr: Chanel Dean DO Re08/12/23 Status: DEP [facility]: SPEC : [id number] COLBY: 08/12/23 STATUS: COMP REQ : [id number] RECD: 08/12/[address]: Chanel Dean DO COMP: 08/12/23 ENTERED: 08/12/[address]: Generic ED Physician Physician,Unknown ORDERED: CBC Auto Diff Test Result Flag Reference WBC 6.2 4.8-10.8 X10*3/uL RBC 4.14 L 4.20-5.50 X10*6/uL HGB 13.1 12.0-16.0 g/dl HCT 39.0 37.0-47.0 % MCV 94.2 80.0-98.0 fL MCH 31.6 27.0-33.0 pg MCHC 33.6 31.0-35.0 g/dl RDW 13.4 11.0-16.0 % PLT 260 # 160-400 X10*3/uL MPV 9.5 9.4-12.3 fL Neut Pct Auto 55.4 45-73 % ImGran Pct Auto 0.3 0.0-0.4 % Lymp Pct Auto 34.3 20-40 % [place] Pct Auto 6.9 2-11 % Eos Pct Auto 2.1 0-4 % Baso Pct Auto 1.0 0-2 % NRBC Pct Auto 0.0 0.0-0.2 /100WBC ANC Neut Abs # 3.5 2.0-8.3 x10*3/uL ImGran Abs Auto 0.02 0.00-0.03 X10*3/uL Lymph Abs Auto 2.1 1.2-4.9 X10*3/uL [place] Abs Auto 0.4 0.1-1.2 X10*3/uL Eos Abs Auto 0.1 0.0-0.4 X10*3/uL Baso Abs Auto 0.1 0.0-0.2 X10*3/uL NRBC Abs Auto 0.000 0.0-0.012 X10*3/uL Name: Demi Lundberg Age/Sex: 53/F : 1970 Unit#: [id number] Attend Dr: Mali Nova MD Re11/03/23 Status: DEP [facility] Disch: SPEC : [id number] COLBY: 11/03/23 STATUS: COMP REQ : [id number] RECD: 11/03/[address]: Mali Nova MD COMP: 11/03/23 ENTERED: 11/03/[address] [facility] [address]: ORDERED: Met Prof Fast, AST, ALT, Lipid Panel, Vitamin D 25-OH Test Result Flag Reference Sodium 141 135-145 mmol/L Potassium 3.8 3.3-5.1 mmol/L CL 110 H 96-108 mmol/L CO2 24 22-29 mmol/L Gap 11 L 12-20 BUN 14 9-16 mg/dL Creat 0.86 0.5-1.4 mg/dL EGFR > 60 NOTE: For -[place] individuals, multiply the result by 1.210. Chronic Kidney Disease: Estimated GFR < 60 mL/min/1. 73m2 Severe Kidney Disease: Estimated GFR < 15 mL/min/1.73m2 FBS 93 60-99 mg/dL CA 9.5 8.4-10.2 mg/dL AST (GOT) 22 5-31 U/L ALT (GPT) 24 0-31 U/L Triglyceride 102 <150 mg/dL Desirable Triglyceride: less than 150 mg/dL Borderline High Triglyceride 150-199 mg/dL High Triglyceride: 200-499 mg/dL Very High Triglyceride: greater than or equal to 5OO mg/dL Cholesterol 175 <200 mg/dL Desirable Cholesterol: less than 200 mg/dL Borderline High Cholesterol: 200-239 mg/dL High Cholesterol: greater than 239 mg/dL LDL Calculated 111 H <100 mg/dL Desirable LDL: less than 100 mg/dL Near Optimal/Above Optimal LDL: 110-129 mg/dL Borderline High LDL: 130-159 mg/dL High LDL: 160-189 mg/dL Very High LDL: greater than or equal to 190 mg/dL HDL 44 >40 mg/dL Desirable HDL: greater than 40 mg/dL Note: This HDL assay may give artificially low results in patients with liver disease. Vit D 25-OH Tot 32.3 >30 ng/mL Health Based Reference Values* < 20 ng/mL Deficient 20-30 ng/mL Insufficient > 30 ng/mL Sufficient Assessment and Plan Assessment & Plan (1) Annual visit for general adult medical examination with abnormal findings: Code(s): Z00.01 - Encounter for general adult medical examination with abnormal findings Plan: Reviewed recent fasting lab results with patient. Recommended dental visit every 6 months and years eye exams. . Take adequate calcium in diet and vitamin-D 3 at 2000 IU per cap once a day, in. She is up-to-date with her cervical cancer screening, and screening colonoscopy., done in [address] Bolton. Up-to-date with her yearly flu vaccine, pneumonia vaccine also given and up-to-date with her Tdap but does not want to get vaccinated against COVID (2) Fibromyalgia: Code(s): M79.7 - Fibromyalgia Plan: Rheumatology referral ordered (3) Cigarette smoker motivated to quit: Code(s): F17.210 - Nicotine dependence, cigarettes, uncomplicated Plan: Discussed options for smoking cessation with medications. Pt wishes to try nicotine patch. Pt advised to apply the nicotine patch as directed on cigarette quit day. Discussed common side effects and strongly advised not to smoke while using the patch. If developes any adverse effects please call office. Follow up in office 4 weeks .Discussed side effects including but not limited to local erythema, rash, diarrhea, and insomnia., , (4) Generalized osteoarthritis of multiple sites: Code(s): M15.9 - Polyosteoarthritis, unspecified Plan: Referred to rheumatology for further evaluation. In the meantime advised to try massaging diclofenac gel to affected joints due to 3 times a day as directed and prescription also given for shortness of cyclobenzaprine to take as needed for painful muscle spasm (5) Controlled diabetes mellitus type II without complication: Code(s): E11.9 - Type 2 diabetes mellitus without complications Qualifiers: Diabetes mellitus clearing supervisor insulin use: with clearing supervisor use Qualified Code(s): E11.9 - Type 2 diabetes mellitus without complications; Z79.4 - oyster floater (current) use of insulin Plan: Currently on Trulicity 3 mg Q weekly (6) Depression with anxiety: Code(s): F41.8 - Other specified anxiety disorders Plan: Currently on duloxetine and takes clonazepam as needed for acute anxiety attacks (7) Dyslipidemia: Code(s): E78.5 - Hyperlipidemia, unspecified Plan: Currently on ezetimibe 10 mg at night and rosuvastatin 5 mg daily Orders: Referrals Rheumatology Referral M79.7 - Fibromyalgia, M19.90 - Unspecified osteoarthritis, unspecified site Medications: New rosuvastatin 5 mg PO DAILY 90 tabs 1RF nicotine 1 patch transdermal DAILY 28 ea 0RF F17.210 - Nicotine dependence, cigarettes, uncomplicated cyclobenzaprine 10 mg PO .qd PRN 14 tabs 0RF muscle spasm Changed From diclofenac sodium 1% apply to single elbow, wrist or hand; for hand includes palm/fingers/back of hand 2 grams topical QID PRN 100 grams 0RF Joint pain To diclofenac sodium 1% apply to single elbow, wrist or hand; for hand includes palm/fingers/back of hand 2 grams topical QID PRN 100 grams 2RF Joint pain Coding Level of Care Code Est Pt Prev Care 40-64y(73075) Diagnoses Annual visit for general adult medical examination with abnormal findings Z00.01 Fibromyalgia M79.7 Cigarette smoker motivated to quit F17.210 Generalized osteoarthritis of multiple sites M15.9 Controlled type 2 diabetes mellitus without complication, with long-term current use of insulin E11.9; Z79.4 Diabetes mellitus group home insulin use: with clearing supervisor use Depression with anxiety F41.8 Dyslipidemia E78.5
[2023-11-04 10:00] VITALS: BP 100/76; PULSE 87; O2SAT 98; BMI 29.5
== END 2023-11-04 16:23 | disposition home or self-care (01) ==
PROVIDERS: Visit Provider Internal Medicine
DX: Z00.01 Encounter for general adult medical examination with abnormal findings (principal); M79.7 Fibromyalgia; F17.210 Nicotine dependence, cigarettes, uncomplicated; M15.9 Polyosteoarthritis, unspecified; E11.9 Type 2 diabetes mellitus without complications; Z79.4 Long term (current) use of insulin; F41.8 Other specified anxiety disorders; E78.5 Hyperlipidemia, unspecified
CPT/HCPCS: 99396

== ENCOUNTER 2023-11-24 14:29 | Outpatient (AMB) | payer OTHER, SELFPAY ==
--- NOTE | 2023-11-24 14:31 | MHC.OFFVIS ---
Vital Signs 11/24/23 14:38 Height 5 ft 4 in Weight 175 lb BMI 30.0 BP 100/66 Intake Visit Reasons: RAND TACKER annual exam Flume Ride Operator Required: Yes Flume Ride Operator Language: Operating Room Surgical Technician Name: Tania Information Interpreted: non-clinical & clinical Engineering Illustrator: Engineering Illustrator Present (Tania) Allergies aspirin Allergy (Intermediate, Verified 11/24/23 14:38) rash latex [LATEX] Allergy (Mild, Verified 11/24/23 14:38) HIVES/RASH Penicillins Allergy (Mild, Verified 11/24/23 14:38) unknown amoxicillin Adverse Reaction (Intermediate, Verified 11/24/23 14:38) diarrhea Beef Containing Products Adverse Reaction (Intermediate, Verified 11/24/23 14:38) DIARRHEA/VOMITING sumatriptan [From Imitrex] Adverse Reaction (Verified 11/24/23 14:38) Palpitations Red Meats And Seafood Allergy (Intermediate, Uncoded 11/04/23 10:21) inflammation and swelling HPI Comments Details: 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 She is doing well with no concerns. Attempting to eat a healthy diet with calcium and vitamin D and stays active with exercise. Currently sexually active. Denies any vaginal dryness or irritation. Using Estrace for urological symptoms and reports it is working well. Last pap smear; 2021 negative. History of hysterectomy due to heavy menstrual bleeding. Last mammogram; 2022. Colonoscopy is UTD. Denies any family history of breast, ovarian or colon cancer. [facility] Medical History Elevated liver transaminase level Microhematuria Candidiasis Tubular adenoma Controlled diabetes mellitus type II without complication Diarrhea Lower thoracic back pain Pancreatic insufficiency Pelvic pain Mild intermittent asthma Depression with anxiety COVID-19 vaccination declined Decreased hearing of right ear Tinnitus of right ear Arthritis Mixed stress and urge incontinence GERD (gastroesophageal reflux disease) Type 2 diabetes mellitus with microalbuminuria, with long-term current use of insulin B12 deficiency Non-toxic multinodular goiter Dyslipidemia Obesity (BMI 30-39.9) Restless leg syndrome Vertigo Fibromyalgia Anxiety Surgical History H/O thyroidectomy Hx of BSO (bilateral salpingo-oophorectomy) Hx of laparoscopy Hx of colonoscopy History of esophagogastroduodenoscopy (EGD) Hx of appendectomy Hx of cholecystectomy Hx of section Family History Father Diabetes mellitus Heart murmur Mother Diabetes mellitus HTN (hypertension) Glaucoma Melanoma Social History Household Members: Family Housing: House Do you presently have visiting nurse or other home services: Yes Alcohol intake: never Patient Tobacco Use Status: Former Tobacco user Quit Date: 1 year ago Tobacco use type: Cigarette Cigarettes Per Day: 5 Years Smoked: 34 e-Cigarette/Vaping Use: Never Used Advance Directives Date on File: 06/21/22 service: No Current occupational status: unemployed Sexual orientation: Straight/Heterosexual Gender identity: Female Cognitive needs: No Hearing needs: No Vision needs: No Female Reproductive History Menstrual Menopause type: surgical Total pregnancies: 3 Full term: 2 Number of Living Children: 2 Ab spontaneous: 1 Date of last pap smear: 11/04/21 (neg pap and hpv) Date of Mammogram: 12/06/22 (Birad 1) Review of Systems Const All systems reviewed & are unremarkable except as noted in HPI and below Reports as per HPI Eyes Reports no additional complaints ENT Reports no additional complaints Card Reports no additional complaints Resp Reports no additional complaints GI Reports as per HPI and Reports no additional complaints Reports as per HPI Musc Reports no additional complaints Skin/Breast Reports as per HPI Neuro Reports no additional complaints Psych Reports no additional complaints Endo Reports no additional complaints Jacek/Lymph Reports no additional complaints Aller/Immun Reports no additional complaints Physical Exam Vital Signs: Last Vital Signs BP 100/66 11/24/23 14:38 BMI result Body Mass Index 30.0 Const General: cooperative, healthy appearing, no acute distress, well developed and alert Orientation/consciousness: patient oriented x3 HEENT Head: Yes normal to inspection Eyes General: appearance normal, both eyes and all related structures Neck Neck: Yes normal visual inspection Thyroid: Thyroid normal Chest Chest palpation & inspection: normal inspection of the chest and other (no puckering, dimpling, peau de orange, retraction, discharge, masses) Breast/axilla inspection: normal inspection of the breasts Breast/axilla palpation: normal palpation of the breasts Resp Effort & Inspection: normal respiratory effort GI Inspection: Yes normal to inspection Palpation (GI): Soft to palpation Rectal Exam - Female: deferred General: Yes bladder normal to palpation External Female Exam: normal external appearance and normal appearance of the urethra Speculum Exam - Vagina: normal appearance of the vagina, normal palpation and normal vaginal discharge Speculum Exam - Cervix: normal appearance of the cervix and normal palpation Bimanual exam- vagina & uterus: normal bimanual exam, normal palpation, bladder normal to palpation, normal palpation and uterus absent Bimanual Exam- Adnexa, other: no masses Skin General skin exam: no rashes or lesions noted Rashes: no rashes Neuro General: patient oriented x3 Cognition (Neuro): normal cognition Extrem General: Yes normal to inspection Psych Attitude: cooperative Thought process: Normal thought process present Assessment & Plan Assessment & Plan (1) Encounter for well woman exam with routine gynecological exam: Code(s): Z01.419 - Encounter for gynecological examination (general) (routine) without abnormal findings Category: Medical Plan: Discussed: Current recommendations for pap smears per ASCCP guidelines. Breast awareness, periodic self breast exams and yearly mammogram. Maintain a healthy lifestyle, well balanced diet including Calcium 1,200 mg and Vitamin D 600 IU daily, and routine exercise. Contact the office with any postmenopausal bleeding. Patient verbalizes understanding and agrees to the plan of care. She was given opportunity to ask questions and all questions were answered to the best of my ability. RTO in 1 year for annual customs examiner exam. This note is constructed using voice recognition software. While every effort has been made to ensure accuracy, environmental department manager errors may have been included. Coding Level of Care Code Est Pt Prev Care 40-64y(75254) Diagnoses Encounter for well woman exam with routine gynecological exam Z01.419
[2023-11-24 14:38] VITALS: BP 100/66
== END 2023-11-24 15:17 | disposition home or self-care (01) ==
PROVIDERS: PCP Internal Medicine; Visit Provider Advanced Practice Midwife
DX: Z01.419 Encounter for gynecological examination (general) (routine) without abnormal findings (principal)
CPT/HCPCS: 99396

== ENCOUNTER → 2023-11-24 14:29 | Outpatient (BNVA) | payer OTHER, SELFPAY | PROVIDERS: PCP Internal Medicine; Visit Provider Advanced Practice Midwife ==

== ENCOUNTER 2023-11-28 08:26 | Outpatient (AMB) | payer OTHER, SELFPAY ==
--- NOTE | 2023-11-28 08:24 | MHC.PC.OV ---
Intake Visit Reasons: 4W F/U Nicotine/Dose adjustment Allergies aspirin Allergy (Intermediate, Verified 11/28/23 09:34) rash latex [LATEX] Allergy (Mild, Verified 11/28/23 09:34) HIVES/RASH Penicillins Allergy (Mild, Verified 11/28/23 09:34) unknown amoxicillin Adverse Reaction (Intermediate, Verified 11/28/23 09:34) diarrhea Beef Containing Products Adverse Reaction (Intermediate, Verified 11/28/23 09:34) DIARRHEA/VOMITING sumatriptan [From Imitrex] Adverse Reaction (Verified 11/28/23 09:34) Palpitations Red Meats And Seafood Allergy (Intermediate, Uncoded 11/28/23 09:34) inflammation and swelling Medication List - Last Reconciled 11/28/23 by Mali Nova MD [incontinence pad As directed 4 times a day as needed] albuterol sulfate 2.5 mg (3 mL) inhalation QID PRN albuterol sulfate 90 mcg/actuation (Ventolin HFA) 2 puffs inhalation Q6H PRN alcohol swabs (Alcohol Prep Pads) 1 pad topical TID bisacodyl (Dulcolax (bisacodyl)) 10 mg (2 x 5 mg) PO BEDTIME blood sugar diagnostic (FreeStyle Lite Strips) test blood sugar 3 times per day blood-glucose meter (FreeStyle Lite Meter kit) As directed [body wipes As directed 6-7 per day] [cane with quad tips use as directed] cetirizine 10 mg PO DAILY cholecalciferol (vitamin D3) 25 mcg PO DAILY cholestyramine-aspartame 4 gram (Cholestyramine Light) 4 grams PO BID clonazepam 1 mg PO BID PRN cyclobenzaprine 10 mg PO .qd PRN diaper,brief,adult,disposable As directed up to 3 per day diclofenac sodium 1% 2 grams topical QID PRN [disposable bed pad As directed] duloxetine 30 mg PO BID estradiol 0.01%(0.1mg/gram) vaginally 3 times a week; pea sized amount to urethra 3 times a week 30 days ezetimibe 10 mg PO BEDTIME fluticasone propion-salmeterol 250-50 mcg/dose (Advair Diskus) 1 inh inhalation BID fluticasone propionate 50 mcg/actuation (Flonase Allergy Relief) 2 sprays intranasal DAILY gabapentin 400 mg PO TID 30 days ibuprofen 600 mg PO Q6H PRN insulin degludec (Tresiba FlexTouch U-100 insulin) 18 units (0.18 mL) subcut BEDTIME 90 days lancets (FreeStyle Lancets) test blood sugar 3 times per day pxgceg-qnzaluwi-kysstbr 36,000-114,000- 180,000 unit (Creon) 1 cap PO QID meclizine 12.5 mg PO DAILY PRN methyl salicylate-menthol 10-3 % (Salonpas (methyl salicylate-menthol)) 1 patch topical Q8-12H PRN methylcellulose (laxative) (Citrucel) 500 mg PO DAILY mirabegron ER (Myrbetriq) 25 mg PO DAILY 90 days nicotine 1 patch transdermal DAILY nortriptyline 25 mg PO BEDTIME omeprazole 20 mg PO DAILY@0630 ondansetron 4 mg PO DAILY PRN pen needle, diabetic (BD Vanessa 2nd Gen Pen Needle) Use to inject insulin once a day ropinirole 0.5 mg PO BEDTIME rosuvastatin 5 mg PO DAILY topiramate 100 mg PO BID Trulicity (dulaglutide) 3 mg (0.5 mL) subcut FR@1000 NS zolpidem 10 mg PO BEDTIME PRN Tobacco use date assessed: 11/04/23 Dental Screening Dental Screen Date: 11/04/23 HPI 4W F/U Nicotine/Dose adjustment HPI Details In here today with 53-year-old lady for follow-up regarding smoking cessation after starting nicotine patch. She has been using the 40 mg patch as directed for the past 4 weeks now and has been able to quit smoking. Would like to continue using has not had any adverse effects from the patch. Not ready to go down however on the 7 mg patch yet [facility] Medical History Elevated liver transaminase level Microhematuria Candidiasis Tubular adenoma Controlled diabetes mellitus type II without complication Diarrhea Lower thoracic back pain Pancreatic insufficiency Pelvic pain Mild intermittent asthma Depression with anxiety COVID-19 vaccination declined Decreased hearing of right ear Tinnitus of right ear Arthritis Mixed stress and urge incontinence GERD (gastroesophageal reflux disease) Type 2 diabetes mellitus with microalbuminuria, with long-term current use of insulin B12 deficiency Non-toxic multinodular goiter Dyslipidemia Obesity (BMI 30-39.9) Restless leg syndrome Vertigo Fibromyalgia Anxiety Surgical History H/O thyroidectomy Hx of BSO (bilateral salpingo-oophorectomy) Hx of laparoscopy Hx of colonoscopy History of esophagogastroduodenoscopy (EGD) Hx of appendectomy Hx of cholecystectomy Hx of section Family History Father Diabetes mellitus Heart murmur Mother Diabetes mellitus HTN (hypertension) Glaucoma Melanoma Social History Household Members: Family Housing: House Do you presently have visiting nurse or other home services: Yes Alcohol intake: never Patient Tobacco Use Status: Former Tobacco user Quit Date: 1 year ago Tobacco use type: Cigarette Cigarettes Per Day: 5 Years Smoked: 34 e-Cigarette/Vaping Use: Never Used Advance Directives Date on File: 06/21/22 service: No Current occupational status: unemployed Sexual orientation: Straight/Heterosexual Gender identity: Female Cognitive needs: No Hearing needs: No Vision needs: No Questionnaire Thrive Questionnaire Date Thrive assessed: 06/21/22 NANCY-7 AMB Questionnaire NANCY-7 Date NANCY - 7 assessed: 06/21/22 Source: Developed by Drs. Umair Drew, Amber Up, Glynn Benson and colleagues, with an educational pola from [employer]. Review of Systems Const Reports no additional complaints, Denies difficulty sleeping and Denies headache(s) ENT Denies dizziness and Denies headache(s) Card Denies chest pain, Denies irregular heart rhythm, Denies lightheadedness and Denies dyspnea Resp Denies chest congestion and Denies dyspnea GI Reports no additional complaints Neuro Denies dizziness, Denies headache(s) and Denies seizure-like activity Psych Reports no additional complaints Physical exam (Primary Care) Tobacco/Smoking Status: Tobacco use Status Tobacco use date assessed 11/04/23 11/28/23 08:26 Patient Tobacco Use Status Former Tobacco user 11/28/23 08:26 Tobacco use type Cigarette 11/28/23 08:26 e-Cigarette/Vaping Use Never Used 11/28/23 08:26 Thrive Assessment: Date of Thrive Assessment Date Thrive assessed 06/21/22 11/28/23 08:26 Telehealth Telehealth Telehealth Platform: Other (please specify) Location of provider rendering services: practice address Location of patient: address on file Patient Identification confirmed using: Name, : Yes Telehealth method: video Patient verbally consented to treatment: Yes Patient verbally consented to billing insurance company: Yes Patient informed of any privacy concerns related to visit: Yes Minutes spent on Phone/Video with Pt.: 15 Assessment and Plan Assessment & Plan (1) Former cigarette smoker: Code(s): Z87.891 - Personal history of nicotine dependence (2) Stopped smoking less than 1 month ago: Code(s): Z87.891 - Personal history of nicotine dependence Plan Able to quit smoking on the 14 mg patch, has been on it now for the last 4 weeks, would like to continue on the same dose prescription sent for another 28 patch. With no refill, continue using the patch as directed, schedule another telehealth visit in 4 weeks to see if ready to go down to the lower dose of the patch Medications: Refilled nicotine 1 patch transdermal DAILY 28 ea 0RF F17.210 - Nicotine dependence, cigarettes, uncomplicated Coding Level of Care Code Tele Est Pt Level 3 (87874) Diagnoses Former cigarette smoker Z87.891 Stopped smoking less than 1 month ago Z87.891
== END 2023-11-28 16:09 | disposition home or self-care (01) ==
LOC: HO.HMGC 08:26
PROVIDERS: PCP Internal Medicine; Visit Provider Internal Medicine
DX: Z87.891 Personal history of nicotine dependence (principal)
CPT/HCPCS: 99213

== ENCOUNTER 2023-12-09 08:22 | Outpatient (AMB) | payer OTHER, SELFPAY ==
--- NOTE | 2023-12-09 09:01 | A.OFFVIS_ITS ---
Intake Visit Reasons: 3 month follow up/ PVR Intake Note: Patient presents today for follow up visit for microscopic hematuria, frequency, urgency, nocturia Urology Medications: myrbetriq Blood Thinner: none PVR: 34ml's Customer Insight Analyst Required: Yes Customer Insight Analyst Name: Khris [id number] Accompanied by: Self / Same As Patient Allergies aspirin Allergy (Intermediate, Verified 12/09/23 09:28) rash latex [LATEX] Allergy (Mild, Verified 12/09/23 09:28) HIVES/RASH Penicillins Allergy (Mild, Verified 12/09/23 09:28) unknown amoxicillin Adverse Reaction (Intermediate, Verified 12/09/23 09:28) diarrhea Beef Containing Products Adverse Reaction (Intermediate, Verified 12/09/23 09:28) DIARRHEA/VOMITING sumatriptan [From Imitrex] Adverse Reaction (Verified 12/09/23 09:28) Palpitations [employer] Se[employer] Allergy (Intermediate, Uncoded 12/09/23 09:28) inflammation and swelling Medication List - Last Reconciled 12/09/23 by ANSON MorinBC [incontinence pad As directed 4 times a day as needed] albuterol sulfate 2.5 mg (3 mL) inhalation QID PRN albuterol sulfate 90 mcg/actuation (Ventolin HFA) 2 puffs inhalation Q6H PRN alcohol swabs (Alcohol Prep Pads) 1 pad topical TID bisacodyl (Dulcolax (bisacodyl)) 10 mg (2 x 5 mg) PO BEDTIME blood sugar diagnostic (FreeStyle Lite Strips) test blood sugar 3 times per day blood-glucose meter (FreeStyle Lite Meter kit) As directed [body wipes As directed 6-7 per day] [cane with quad tips use as directed] cetirizine 10 mg PO DAILY cholecalciferol (vitamin D3) 25 mcg PO DAILY cholestyramine-aspartame 4 gram (Cholestyramine Light) 4 grams PO BID clonazepam 1 mg PO BID PRN cyclobenzaprine 10 mg PO .qd PRN diaper,brief,adult,disposable As directed up to 3 per day diclofenac sodium 1% 2 grams topical QID PRN [disposable bed pad As directed] duloxetine 30 mg PO BID estradiol 0.01%(0.1mg/gram) vaginally 3 times a week; pea sized amount to urethra 3 times a week 90 days ezetimibe 10 mg PO BEDTIME fluticasone propion-salmeterol 250-50 mcg/dose (Advair Diskus) 1 inh inhalation BID fluticasone propionate 50 mcg/actuation (Flonase Allergy Relief) 2 sprays intra nasal DAILY gabapentin 400 mg PO TID 30 days ibuprofen 600 mg PO Q6H PRN insulin degludec (Tresiba FlexTouch U-100 insulin) 18 units (0.18 mL) subcut BEDTIME 90 days lancets (FreeStyle Lancets) test blood sugar 3 times per day qkkksw-guxqeekc-fkwlqqk 36,000-114,000- 180,000 unit (Creon) 1 cap PO QID meclizine 12.5 mg PO DAILY PRN methyl salicylate-menthol 10-3 % (Salonpas (methyl salicylate-menthol)) 1 patch topical Q8-12H PRN methylcellulose (laxative) (Citrucel) 500 mg PO DAILY mirabegron ER (Myrbetriq) 25 mg PO DAILY 90 days nicotine 1 patch transdermal DAILY nortriptyline 25 mg PO BEDTIME omeprazole 20 mg PO DAILY@0630 ondansetron 4 mg PO DAILY PRN pen needle, diabetic (BD Vanessa 2nd Gen Pen Needle) Use to inject insulin once a day ropinirole 0.5 mg PO BEDTIME rosuvastatin 5 mg PO DAILY topiramate 100 mg PO BID Trulicity (dulaglutide) 3 mg (0.5 mL) subcut FR@1000 NS zolpidem 10 mg PO BEDTIME PRN HPI Comments Details: Demi is a 53-year-old Panamanian-speaking female patient of Dr. Nova. She has a past medical history of diabetes, asthma, depression, anxiety, bilateral hearing loss, arthritis, GERD, dyslipidemia, obesity, restless leg syndrome, vertigo, and fibromyalgia. In discussion with the patient today she reports to be doing and feeling well. She reports to be happy with current voiding parameters on her 25 mg of Myrbetriq. She reports compliance with Estrace cream 3 times per week as prescribed. She currently denies any bothersome urinary issues or concerns. She denies urinary urgency, urinary frequency, incontinence, nocturia, hematuria, dysuria, foul smelling urine, changes to urinary stream, flank pain, fever, and or chills. Previous workup has included an in office cystoscopy with Dr. Castellanos as she has a history of microscopic hematuria in the setting of nicotine dependence cystoscopy noted debris otherwise no suspicious bladder lesions were visualized. In office urinalysis results reviewed with the patient today. PVR 34ml's. She otherwise offers no other issues or concerns at this time. [facility] Medical History Elevated liver transaminase level Microhematuria Candidiasis Tubular adenoma Controlled diabetes mellitus type II without complication Diarrhea Lower thoracic back pain Pancreatic insufficiency Pelvic pain Mild intermittent asthma Depression with anxiety COVID-19 vaccination declined Decreased hearing of right ear Tinnitus of right ear Arthritis Mixed stress and urge incontinence GERD (gastroesophageal reflux disease) Type 2 diabetes mellitus with microalbuminuria, with long-term current use of insulin B12 deficiency Non-toxic multinodular goiter Dyslipidemia Obesity (BMI 30-39.9) Restless leg syndrome Vertigo Fibromyalgia Anxiety Surgical History H/O thyroidectomy Hx of BSO (bilateral salpingo-oophorectomy) Hx of laparoscopy Hx of colonoscopy History of esophagogastroduodenoscopy (EGD) Hx of appendectomy Hx of cholecystectomy Hx of section Family History Father Diabetes mellitus Heart murmur Mother Diabetes mellitus HTN (hypertension) Glaucoma Melanoma Social History Household Members: Family Housing: House Do you presently have visiting nurse or other home services: Yes Alcohol intake: never Patient Tobacco Use Status: Former Tobacco user Quit Date: 1 year ago Tobacco use type: Cigarette Cigarettes Per Day: 5 Years Smoked: 34 e-Cigarette/Vaping Use: Never Used Advance Directives Date on File: 06/21/22 service: No Current occupational status: unemployed Sexual orientation: Straight/Heterosexual Gender identity: Female Cognitive needs: No Hearing needs: No Vision needs: No Review of Systems Const Reports as per HPI Eyes Reports no additional complaints ENT Reports as per HPI Card Reports as per HPI Resp Reports as per HPI GI Reports as per HPI Reports as per HPI Musc Reports as per HPI Neuro Reports as per HPI Psych Reports as per HPI Endo Reports as per HPI Physical Exam Const General: cooperative, comfortable, no acute distress, well developed, alert and awake Nutritional Appearance: overweight Orientation/consciousness: patient oriented x3 HEENT Head: Yes normal to inspection, Yes normocephalic and Yes atraumatic Ears: hearing grossly normal bilaterally Eyes General: appearance normal, both eyes and all related structures Neck Neck: Yes normal visual inspection and Yes trachea midline Chest Chest palpation & inspection: normal inspection of the chest Resp Effort & Inspection: normal respiratory effort and able to speak in complete sentences Cardio Rate: regular rate GI Inspection: Yes normal to inspection General: Yes no CVA tenderness Back/Spine/Pelvis Back: no CVA tenderness Skin General skin exam: no rashes or lesions noted Neuro General: patient oriented x3 Extrem General: Yes normal to inspection Psych Appearance: grossly normal and well kempt Mental Status: mental status grossly normal Speech and movement: Normal speech and movement present and Clear speech present Affect: Sad affect present Attitude: cooperative Thought process: Normal thought process present Thought content: Normal thought content present Insight: Fair insight present (Psych) Judgement: Fair judgement present (Psych) Office Procedures Post Void Residual Post Residual Void Post Void Residual (PVR): 34 [id number] Void Residual by ultrasound Results AMB Urinalysis, Automated UA Leukoctes 0 John/uL Last Edit by [employer] on 12/09/23 09:15 UA Nitrite Negative Last Edit by [employer] on 12/09/23 09:15 UA Urobilinogen 0.2 mg/dL Last Edit by [employer] on 12/09/23 09:15 UA Protein 0 mg/dL Last Edit by [employer] on 12/09/23 09:15 UA pH 6.5 Last Edit by [employer] on 12/09/23 09:15 UA Blood 0 Jian/uL Last Edit by [employer] on 12/09/23 09:15 UA Specific [place] 1.010 Last Edit by [employer] on 12/09/23 09:15 UA Ketone Negative Last Edit by [employer] on 12/09/23 09:15 UA Bilirubin 0 mg/dL Last Edit by [employer] on 12/09/23 09:15 UA Glucose 0 mg/dL Last Edit by [employer] on 12/09/23 09:15 Results Reviewed Results Reviewed: Laboratory Last Values Urine pH (Auto) 6.5 12/09/23 09:13 Specific [place] (Auto) 1.010 12/09/23 09:13 Urine Protein (Auto) 0 mg/dL 12/09/23 09:13 Glucose (UA)(Auto) 0 mg/dL 12/09/23 09:13 Urine Ketones (Auto) Negative 12/09/23 09:13 Urine Blood (Auto) 0 Jian/uL 12/09/23 09:13 Urine Nitrite (Auto) Negative 12/09/23 09:13 Urine Bilirubin (Auto) 0 mg/dL 12/09/23 09:13 Urine Urobilinogen (Auto) 0.2 mg/dL 12/09/23 09:13 Leukocyte Esterase (Auto) 0 John/uL 12/09/23 09:13 Assessment & Plan Assessment & Plan (1) Nocturia: Code(s): R35.1 - Nocturia Category: Medical (2) Urinary frequency: Code(s): R35.0 - Frequency of micturition Category: Medical (3) Urinary urgency: Code(s): R39.15 - Urgency of urination Category: Medical (4) Lower urinary tract symptoms: Code(s): R39.9 - Unspecified symptoms and signs involving the genitourinary system Category: Medical (5) Mixed stress and urge incontinence: Code(s): N39.46 - Mixed incontinence Category: Medical Plan In office urinalysis results reviewed with the patient today; as noted above. PVR 34 mL. Patient reports be happy with current voiding parameters on 25 mg of Myrbetriq; will continue; refill provided. Continue Estrace cream as discussed and prescribed. Patient currently denies any bothersome urinary issues or concerns. Discussed, educated, and stressed the importance of limiting/quitting nicotine dependence for overall health and well-being. Follow-up in 6 months with PVR; or sooner with any issues, concerns, and or questions. Orders: Orders AMB Urinalysis Automated Today Z13.9 - Encounter for screening, unspecified AMB Post Void Residual by ultrasound Today R35.1 - Nocturia Medications: Changed From estradiol 0.01%(0.1mg/gram) vaginally 3 times a week; pea sized amount to urethra 3 times a week 30 days 42.5 grams 2RF To estradiol 0.01%(0.1mg/gram) vaginally 3 times a week; pea sized amount to urethra 3 times a week 90 days 42.5 grams 3RF Patient Instructions: The patient had an opportunity to ask questions regarding the treatment plan. All questions were answered. Physical exam, labs, and imaging were discussed and reviewed in detail. As well as risks, benefits, and discussion of treatment choices. No major barriers to understanding were identified. The patient expressed understanding and agreement with the above treatment plan. The patient was made aware they should contact our office by phone for worsening of their current condition, the appearance of new symptoms, or with any questions or concerns. Compliance is encouraged with any medications and follow up testing that is ordered. It is a privilege to be allowed the opportunity to participate in? your urological care.? Again, if you have any questions or concerns If you have any questions or concerns please do not hesitate to contact me. The office is [phone]. This note is constructed using voice recognition software. While every effort has been made to ensure accuracy soda fountain manager errors may have been included. Yours sincerely, KYLEIGH Morin Coding Level of Care Code Est Pt Level 3 (84039) Diagnoses Nocturia R35.1 Urinary frequency R35.0 Urinary urgency R39.15 Lower urinary tract symptoms R39.9 Mixed stress and urge incontinence N39.46 CPT Codes Post Residual Void - PVR CPT Code: 61789-[place] Void Residual by ultrasound ([id number])
== END 2023-12-09 09:24 | disposition home or self-care (01) ==
PROVIDERS: PCP Internal Medicine; Visit Provider Nurse Practitioner Family
DX: R35.1 Nocturia (principal); R35.0 Frequency of micturition; R39.15 Urgency of urination; R39.9 Unspecified symptoms and signs involving the genitourinary system; N39.46 Mixed incontinence; Z13.9 Encounter for screening, unspecified
CPT/HCPCS: 99213

== ENCOUNTER → 2023-12-09 08:22 | Outpatient (BNVA) | payer OTHER, SELFPAY | PROVIDERS: PCP Internal Medicine; Visit Provider Nurse Practitioner Family | DX: R35.1 Nocturia (principal); R35.0 Frequency of micturition; R39.15 Urgency of urination; R39.9 Unspecified symptoms and signs involving the genitourinary system | CPT/HCPCS: 51798; 81003; 99212 ==

== ENCOUNTER 2023-12-12 11:12 | Outpatient (REF) | payer OTHER, SELFPAY | END 2023-12-12 11:13 | disposition home or self-care (01) | LOC: HO.MAMMO 11:12 | PROVIDERS: PCP Internal Medicine; Visit Provider Internal Medicine | DX: Z12.31 Encounter for screening mammogram for malignant neoplasm of breast (principal) | CPT/HCPCS: 77063; 77067 ==

== ENCOUNTER → 2023-12-12 12:30 | Outpatient (BNV) | payer OTHER, SELFPAY | PROVIDERS: PCP Internal Medicine; Visit Provider Radiology Diagnostic Radiology | DX: Z12.31 Encounter for screening mammogram for malignant neoplasm of breast (principal) | CPT/HCPCS: 77063; 77067 ==

== ENCOUNTER 2023-12-29 13:27 | Outpatient (AMB) | payer OTHER, SELFPAY ==
--- NOTE | 2023-12-29 14:29 | MHC.OFFVIS ---
Vital Signs 12/29/23 14:32 Height 5 ft 4 in Weight 176 lb 12.972 oz BMI 30.3 BP 110/70 Blood Pressure Location Rt brachial Position Sitting Pulse 89 Pulse Oximetry (%) 98 Intake Visit Reasons: OA/FM/CM Intake Note: New patient, internally referred, presents to office today for OA/FM. Joints affected: neck radiating to feet Pain began approx: 10 years ago, diagnosed with FM Has tried: tramadol, gabapentin, cymbalta Last seen in [address] Moya. Board Filler Required: Yes Board Filler Language: [place] Citizen Information Interpreted: clinical only Accompanied by: Self / Same As Patient Allergies aspirin Allergy (Intermediate, Verified 12/29/23 14:36) rash latex [LATEX] Allergy (Mild, Verified 12/29/23 14:36) HIVES/RASH Penicillins Allergy (Mild, Verified 12/29/23 14:36) unknown amoxicillin Adverse Reaction (Intermediate, Verified 12/29/23 14:36) diarrhea Beef Containing Products Adverse Reaction (Intermediate, Verified 12/29/23 14:36) DIARRHEA/VOMITING sumatriptan [From Imitrex] Adverse Reaction (Verified 12/29/23 14:36) Palpitations [employer] Se[employer] Allergy (Intermediate, Uncoded 12/29/23 14:36) inflammation and swelling HPI Comments Details: Ms. Atilio Douglas presents for Evaluating of Fibromyalgia. Last seen at [facility] in [address] Moya. Her most recent Senior Marketing Coordinator has moved, but also says she has not seen one in 6 years. Patient states that she is managing her Fibromyalgia with Gabapentin and Cymbalta, and Cyclobenzaprine and is being prescribed by PCP. Continues to report diffuse arthralgia and states her pain is 9/10. She thinks she needs an increased dose of the Gabapentin. She says the cumbalta works well and the cyclobenzaprine is helpful with the muscle in her thighs. 12/02/2020 Dr. Moya: KerayoEvangelista presents for follow-up of Fibromyalgia. Last seen in October [address] Linares. Patient states that she is managing her Fibromyalgia with Gabapentin and Cymbalta. Continues to report diffuse arthralgia and states her pain is 9/10. [facility] Medical History (Updated 12/29/23 @ 15:46 by RAJENDRA Velasquez-) Generalized osteoarthritis of multiple sites Elevated liver transaminase level Microhematuria Candidiasis Tubular adenoma Controlled diabetes mellitus type II without complication Diarrhea Lower thoracic back pain Pancreatic insufficiency Pelvic pain Mild intermittent asthma Depression with anxiety COVID-19 vaccination declined Decreased hearing of right ear Tinnitus of right ear Arthritis Mixed stress and urge incontinence GERD (gastroesophageal reflux disease) Type 2 diabetes mellitus with microalbuminuria, with long-term current use of insulin B12 deficiency Non-toxic multinodular goiter Dyslipidemia Obesity (BMI 30-39.9) Restless leg syndrome Vertigo Fibromyalgia Anxiety Surgical History H/O thyroidectomy Hx of BSO (bilateral salpingo-oophorectomy) Hx of laparoscopy Hx of colonoscopy History of esophagogastroduodenoscopy (EGD) Hx of appendectomy Hx of cholecystectomy Hx of section Family History (Updated 12/29/23 @ 14:35 by KULWINDER Goodman) Father Diabetes mellitus Heart murmur Arthritis Mother Diabetes mellitus HTN (hypertension) Glaucoma Melanoma Arthritis Sister Arthritis Social History Household Members: Family Housing: House Do you presently have visiting nurse or other home services: Yes Alcohol intake: never Patient Tobacco Use Status: Former Tobacco user Tobacco use type: Cigarette Cigarettes Per Day: 5 Years Smoked: 34 e-Cigarette/Vaping Use: Never Used Advance Directives Date on File: 06/21/22 service: No Current occupational status: unemployed Sexual orientation: Straight/Heterosexual Gender identity: Female Cognitive needs: No Hearing needs: No Vision needs: No Review of Systems Const All systems reviewed & are unremarkable except as noted in HPI and below Physical Exam Vital Signs: Last Vital Signs Pulse 89 12/29/23 14:32 BP 110/70 12/29/23 14:32 Pulse Ox 98 12/29/23 14:32 BMI result Body Mass Index 30.3 Vital signs reviewed. Constitutional: Non-toxic appearing. No acute distress. Well-developed and well-nourished. HEENT: Normocephalic and atraumatic. External auditory canals without erythema or edema bilaterally. Dry mucous membranes. Skin: Warm and dry. No rashes or lesions noted. Neck: Full and painless range of motion. No cervical lymphadenopathy. Cardio: Regular rate and rhythm. No murmurs, gallops, or rubs. No lower extremity edema. No JVD. Pulmonary: No respiratory distress. No accessory muscle usage. Musculoskeletal: Normal range of motion in joints throughout the body. No deformity or other signs of injury. Neuro: Alert and oriented x4. Cranial nerves 2-12 grossly intact. No focal deficits appreciated. Assessment & Plan Assessment & Plan (1) Fibromyalgia: Code(s): M79.7 - Fibromyalgia Category: Medical (2) Generalized osteoarthritis of multiple sites: Code(s): M15.9 - Polyosteoarthritis, unspecified Category: Medical Plan FM/OA: The patient with a history of Fibromyalgia can continue with management at her PCP. On PE, there is no inflammatory symptoms. I discussed with her the the pain will not go away for good so increased medication will not achieve that outcome. Light exercises, heat can be helpful and she should continue using diclofenac gel for the back of neck and other joints for OA. She can continue with her PCP for medication management Gabapentin, Cymbalta and Cyclubenzaprine. Follow-up as needed if experiencing red warm and swollen joints. Coding Level of Care Code New Pt Level 3 (35986) Diagnoses Fibromyalgia M79.7 Generalized osteoarthritis of multiple sites M15.9
[2023-12-29 14:32] VITALS: BP 110/70; PULSE 89; O2SAT 98; BMI 30.3
== END 2023-12-29 15:16 | disposition home or self-care (01) ==
PROVIDERS: PCP Internal Medicine; Visit Provider Nurse Practitioner Family
DX: M79.7 Fibromyalgia (principal); M15.9 Polyosteoarthritis, unspecified
CPT/HCPCS: 99203

== ENCOUNTER → 2023-12-29 13:27 | Outpatient (BNVA) | payer OTHER, SELFPAY | PROVIDERS: PCP Internal Medicine; Visit Provider Nurse Practitioner Family | DX: M79.7 Fibromyalgia (principal); M15.9 Polyosteoarthritis, unspecified | CPT/HCPCS: 99202 ==

== ENCOUNTER 2024-02-17 08:25 | Outpatient (AMB) | payer OTHER, SELFPAY ==
--- NOTE | 2024-02-17 09:44 | A.OFFPC_ITS ---
Intake Visit Reasons: smok cessation [id number] ready to go to 14mg Allergies aspirin Allergy (Intermediate, Verified 02/17/24 10:43) rash latex [LATEX] Allergy (Mild, Verified 02/17/24 10:43) HIVES/RASH Penicillins Allergy (Mild, Verified 02/17/24 10:43) unknown amoxicillin Adverse Reaction (Intermediate, Verified 02/17/24 10:43) diarrhea Beef Containing Products Adverse Reaction (Intermediate, Verified 02/17/24 10:43) DIARRHEA/VOMITING sumatriptan [From Imitrex] Adverse Reaction (Verified 02/17/24 10:43) Palpitations [employer] Allergy (Intermediate, Uncoded 02/17/24 10:43) inflammation and swelling Medication List - Last Reconciled 02/17/24 by Mali Nova MD [incontinence pad As directed 4 times a day as needed] albuterol sulfate 2.5 mg (3 mL) inhalation QID PRN albuterol sulfate 90 mcg/actuation (Ventolin HFA) 2 puffs inhalation Q6H PRN alcohol swabs (Alcohol Prep Pads) 1 pad topical TID bisacodyl (Dulcolax (bisacodyl)) 10 mg (2 x 5 mg) PO BEDTIME blood sugar diagnostic (FreeStyle Lite Strips) test blood sugar 3 times per day blood-glucose meter (FreeStyle Lite Meter kit) As directed [body wipes As directed 6-7 per day] [cane with quad tips use as directed] cetirizine 10 mg PO DAILY cholecalciferol (vitamin D3) 25 mcg PO DAILY cholestyramine-aspartame 4 gram (Cholestyramine Light) 4 grams PO BID clonazepam 1 mg PO BID PRN cyclobenzaprine 10 mg PO .qd PRN diaper,brief,adult,disposable As directed up to 3 per day diclofenac sodium 1% 2 grams topical QID PRN [disposable bed pad As directed] duloxetine 30 mg PO BID estradiol 0.01%(0.1mg/gram) vaginally 3 times a week; pea sized amount to urethra 3 times a week 90 days ezetimibe 10 mg PO BEDTIME fluticasone propion-salmeterol 250-50 mcg/dose (Advair Diskus) 1 inh inhalation BID fluticasone propionate 50 mcg/actuation (Flonase Allergy Relief) 2 sprays intranasal DAILY gabapentin 400 mg PO TID 30 days ibuprofen 600 mg PO Q6H PRN insulin degludec (Tresiba FlexTouch U-100 insulin) 18 units (0.18 mL) subcut BEDTIME 90 days lancets (FreeStyle Lancets) test blood sugar 3 times per day yketyl-kebgplsr-tidqnbd 36,000-114,000- 180,000 unit (Creon) 1 cap PO QID meclizine 12.5 mg PO DAILY PRN methyl salicylate-menthol 10-3 % (Salonpas (methyl salicylate-menthol)) 1 patch topical Q8-12H PRN methylcellulose (laxative) (Citrucel) 500 mg PO DAILY mirabegron ER (Myrbetriq) 25 mg PO DAILY 90 days nicotine 1 patch transdermal DAILY nortriptyline 25 mg PO BEDTIME omeprazole 20 mg PO DAILY@0630 ondansetron 4 mg PO DAILY PRN pen needle, diabetic (BD Vanessa 2nd Gen Pen Needle) Use to inject insulin once a day ropinirole 0.5 mg PO BEDTIME rosuvastatin 5 mg PO DAILY topiramate 100 mg PO BID Trulicity (dulaglutide) 3 mg (0.5 mL) subcut FR@1000 NS zolpidem 10 mg PO BEDTIME PRN Tobacco use date assessed: 02/17/24 Dental Screening Dental Screen Date: 11/04/23 HPI smok cessation [id number] ready to go to 14mg HPI Details 53-year-old lady here today for follow-u p regarding her smoking cessation. Has been using nicotine patch 21 mg as directed, patient states that she has quit about a month ago, no cravings. Denies any problems with using the patch, except for occasional itchiness after removing it. She has been rotating sites of application. [facility] Medical History (Updated 02/17/24 @ 10:47 by Mali Nova MD) Former cigarette smoker Generalized osteoarthritis of multiple sites Elevated liver transaminase level Microhematuria Candidiasis Tubular adenoma Controlled diabetes mellitus type II without complication Diarrhea Lower thoracic back pain Pancreatic insufficiency Pelvic pain Mild intermittent asthma Depression with anxiety COVID-19 vaccination declined Decreased hearing of right ear Tinnitus of right ear Arthritis Mixed stress and urge incontinence GERD (gastroesophageal reflux disease) Type 2 diabetes mellitus with microalbuminuria, with long-term current use of insulin B12 deficiency Non-toxic multinodular goiter Dyslipidemia Obesity (BMI 30-39.9) Restless leg syndrome Vertigo Fibromyalgia Anxiety Surgical History H/O thyroidectomy Hx of BSO (bilateral salpingo-oophorectomy) Hx of laparoscopy Hx of colonoscopy History of esophagogastroduodenoscopy (EGD) Hx of appendectomy Hx of cholecystectomy Hx of section Family History Father Diabetes mellitus Heart murmur Arthritis Mother Diabetes mellitus HTN (hypertension) Glaucoma Melanoma Arthritis Sister Arthritis Social History Household Members: Family Housing: House Do you presently have visiting nurse or other home services: Yes Alcohol intake: never Patient Tobacco Use Status: Former Tobacco user Tobacco use type: Cigarette Cigarettes Per Day: 0 Years Smoked: 34 Packs per year/per ci.00 e-Cigarette/Vaping Use: Never Used Advance Directives Date on File: 06/21/22 service: No Current occupational status: unemployed Sexual orientation: Straight/Heterosexual Gender identity: Female Cognitive needs: No Hearing needs: No Vision needs: No Questionnaire Thrive Questionnaire Date Thrive assessed: 06/21/22 NANCY-7 AMB Questionnaire NANCY-7 Date NANCY - 7 assessed: 06/21/22 Source: Developed by Drs. Umair Drew, Amber Up, Glynn Benson and colleagues, with an educational pola from [employer]. Review of Systems Const All systems reviewed & are unremarkable except as noted in HPI and below Physical exam (Primary Care) Tobacco/Smoking Status: Tobacco use Status Tobacco use date assessed 02/17/24 02/17/24 10:41 Patient Tobacco Use Status Former Tobacco user 02/17/24 09:47 Tobacco use type Cigarette 02/17/24 09:47 e-Cigarette/Vaping Use Never Used 02/17/24 09:47 Thrive Assessment: Date of Thrive Assessment Date Thrive assessed 06/21/22 02/17/24 09:47 Telehealth Telehealth Telehealth Platform: [facility] Location of provider rendering services: practice address Location of patient: address on file Patient Identification confirmed using: Name, : Yes Telehealth method: video Patient verbally consented to treatment: Yes Patient verbally consented to billing insurance company: Yes Patient informed of any privacy concerns related to visit: Yes Minutes spent on Phone/Video with Pt.: 15 Assessment and Plan Assessment & Plan (1) Former cigarette smoker: Code(s): Z87.891 - Personal history of nicotine dependence Plan: Has quit smoking about a month ago, with the help of the nicotine patch. Will decrease dose of her nicotine patch now to 14 mg per patch, again to apply to up upper chest, upper arm and upper back non hairy areas, and rotate sites of application. Advised to use Benadryl spray to affected area if itching starts after using the patch continue with smoking cessation will see her back for follow-up in 1 month Medications: Changed From nicotine 1 patch transdermal DAILY 28 ea 0RF F17.210 - Nicotine dependence, cigarettes, uncomplicated To nicotine 1 patch transdermal DAILY 28 ea 0RF F17.210 - Nicotine dependence, cigarettes, uncomplicated Coding Level of Care Code Tele Est Pt Level 3 (80007) Diagnoses Former cigarette smoker Z87.891
== END 2024-02-17 17:42 | disposition home or self-care (01) ==
LOC: HO.HMGC 08:25
PROVIDERS: PCP Internal Medicine; Visit Provider Internal Medicine
DX: F17.210 Nicotine dependence, cigarettes, uncomplicated (principal)
CPT/HCPCS: 99213

== ENCOUNTER 2024-03-23 10:38 | Outpatient (AMB) | payer OTHER, SELFPAY ==
[2024-03-23 10:44] VITALS: BP 110/80; PULSE 107; TEMP 37.1; O2SAT 96; BMI 30.2
--- NOTE | 2024-03-23 10:44 | AM.OFFWIN_ITS ---
Intake Vital Signs 03/23/24 10:44 Height 5 ft 4 in Weight 176 lb BMI 30.2 BP 110/80 Blood Pressure Location Rt brachial Position Sitting Pulse 107 H Pulse Source Pulse Oximeter Temp 98.7 F Temp Source Oral Pulse Oximetry (%) 96 Oxygen Delivery Method Room Air Intake Visit Reasons: EP asthma/sinus,headache,daniel Intake Note: Patient here for SOB, sinus pressure and headaches that have been present for about 3 days. Patient Tobacco Use Status: Former Tobacco user Allergies aspirin Allergy (Intermediate, Verified 03/23/24 10:45) rash latex [LATEX] Allergy (Mild, Verified 03/23/24 10:45) HIVES/RASH Penicillins Allergy (Mild, Verified 03/23/24 10:45) unknown amoxicillin Adverse Reaction (Intermediate, Verified 03/23/24 10:45) diarrhea Beef Containing Products Adverse Reaction (Intermediate, Verified 03/23/24 10:45) DIARRHEA/VOMITING sumatriptan [From Imitrex] Adverse Reaction (Verified 03/23/24 10:45) Palpitations [employer] Allergy (Intermediate, Uncoded 03/23/24 10:45) inflammation and swelling Do you need a note to return to daycare/school/sports/work: No HPI HPI Comments History of Present Illness Details 53 y/o female patient who presents to [facility] in clinic with c/o SOB, coughing, sinus pressure, wheezing and chest tightness. She is Asthmatic and uses Albuterol inhale frequently. [facility] Medical History (Updated 03/23/24 @ 11:03 by Diann York NP) Cough in adult Former cigarette smoker Generalized osteoarthritis of multiple sites Elevated liver transaminase level Microhematuria Candidiasis Tubular adenoma Controlled diabetes mellitus type II without complication Diarrhea Lower thoracic back pain Pancreatic insufficiency Pelvic pain Mild intermittent asthma Depression with anxiety COVID-19 vaccination declined Decreased hearing of right ear Tinnitus of right ear Arthritis Mixed stress and urge incontinence GERD (gastroesophageal reflux disease) Type 2 diabetes mellitus with microalbuminuria, with long-term current use of insulin B12 deficiency Non-toxic multinodular goiter Dyslipidemia Obesity (BMI 30-39.9) Restless leg syndrome Vertigo Fibromyalgia Anxiety Surgical History H/O thyroidectomy Hx of BSO (bilateral salpingo-oophorectomy) Hx of laparoscopy Hx of colonoscopy History of esophagogastroduodenoscopy (EGD) Hx of appendectomy Hx of cholecystectomy Hx of section Family History Father Diabetes mellitus Heart murmur Arthritis Mother Diabetes mellitus HTN (hypertension) Glaucoma Melanoma Arthritis Sister Arthritis Social History Household Members: Family Housing: House Do you presently have visiting nurse or other home services: Yes Alcohol intake: never Patient Tobacco Use Status: Former Tobacco user Tobacco use type: Cigarette Cigarettes Per Day: 0 Years Smoked: 34 e-Cigarette/Vaping Use: Never Used Advance Directives Date on File: 06/21/22 service: No Current occupational status: unemployed Sexual orientation: Straight/Heterosexual Gender identity: Female Cognitive needs: No Hearing needs: No Vision needs: No Review of Systems Const All systems reviewed & are unremarkable except as noted in HPI and below Physical Exam Vital Signs: Last Vital Signs Temp 98.7 F 03/23/24 10:44 Pulse 107 H 03/23/24 10:44 BP 110/80 03/23/24 10:44 Pulse Ox 96 03/23/24 10:44 Oxygen Delivery Method Room Air 03/23/24 10:44 BMI result Body Mass Index 30.2 Const General: cooperative and no acute distress Nutritional Appearance: obese Orientation/consciousness: patient oriented x3 HEENT Head: Yes normocephalic Ears: external ears normal and TM abnormal bulging bilateral and with fluid behind the TM bilateral General nose exam: Normal external nose present Face and sinus: Yes sinuses nontender Mouth: moist mucous membranes Throat: Yes postnasal drainage Resp Effort & Inspection: normal respiratory effort and able to speak in complete sentences Auscultation: no crackles, no rales, rhonchi throughout and wheezes throughout Cardio Heart sounds: S1 normal heart sound present and S2 normal heart sound present Neuro General: patient oriented x3 Psych Speech and movement: Normal speech and movement present Assessment & Plan Assessment & Plan (1) Acute respiratory disease: Code(s): J06.9 - Acute upper respiratory infection, unspecified Plan: Ordered SARs Ordered Abx OTC cough remedies Continue Albuterol Tx at home 4-6 hours Acetaminophen for pain relief Rest and hydrate well. (2) Cough in adult: Code(s): R05.9 - Cough, unspecified Plan: Ordered SARs Ordered Abx OTC cough remedies Continue Albuterol Tx at home 4-6 hours Acetaminophen for pain relief Rest and hydrate well. Orders: Orders SARS-CoV2/FLU/RSV Today R09.89 - Other specified symptoms and signs involving the circulatory and respiratory systems Medications: New doxycycline hyclate 100 mg PO BID 10 days 20 caps 0RF J06.9 - Acute upper respiratory infection, unspecified benzonatate 100 mg PO TID 90 caps 0RF J06.9 - Acute upper respiratory infection, unspecified, R05.9 - Cough, unspecified prednisone 50 mg PO DAILY 5 days 5 tabs 0RF J06.9 - Acute upper respiratory infection, unspecified, R05.9 - Cough, unspecified Coding Level of Care Code Est Pt Level 3 (43763) Diagnoses Acute respiratory disease J06.9 Cough in adult R05.9 Time Spent (min) 15
== END 2024-03-23 11:13 | disposition home or self-care (01) ==
PROVIDERS: PCP Internal Medicine; Visit Provider Nurse Practitioner Family
DX: J06.9 Acute upper respiratory infection, unspecified (principal); R05.9 Cough, unspecified
CPT/HCPCS: 99213

== ENCOUNTER 2024-03-23 10:57 | Outpatient (REF) | payer OTHER, SELFPAY ==
[2024-03-23 16:09] LABS: Influenza A PCR NEGATIVE (Negative); Influenza B PCR NEGATIVE (Negative); Resp Syncy Virus RNA Qual PCR NEGATIVE (Negative); SARS COV2 PCR INHOUSE NEGATIVE (Negative)
== END 2024-03-23 10:58 | disposition home or self-care (01) ==
LOC: HO.LAB 10:57
PROVIDERS: Visit Provider Nurse Practitioner Family
DX: R09.89 Other specified symptoms and signs involving the circulatory and respiratory systems (principal); J06.9 Acute upper respiratory infection, unspecified
CPT/HCPCS: 0241U

== ENCOUNTER 2024-03-30 08:27 | Outpatient (AMB) | payer OTHER, SELFPAY ==
[2024-03-30 08:51] VITALS: BP 114/80; PULSE 84; TEMP 36.8; O2SAT 97; BMI 32.3
--- NOTE | 2024-03-30 08:51 | AM.OFFWIN_ITS ---
Intake Vital Signs 03/30/24 08:51 Height 5 ft 4 in Weight 188 lb BMI 32.3 BP 114/80 Blood Pressure Location Lt brachial Position Sitting Pulse 84 Pulse Source Pulse Oximeter Temp 98.3 F Temp Source Oral Pulse Oximetry (%) 97 Oxygen Delivery Method Room Air Intake Visit Reasons: EP- bronchitis Intake Note: pt c/o bronchitis. Started last week. Patient Tobacco Use Status: Former Tobacco user Allergies aspirin Allergy (Intermediate, Verified 03/30/24 09:06) rash latex [LATEX] Allergy (Mild, Verified 03/30/24 09:06) HIVES/RASH Penicillins Allergy (Mild, Verified 03/30/24 09:06) unknown amoxicillin Adverse Reaction (Intermediate, Verified 03/30/24 09:06) diarrhea Beef Containing Products Adverse Reaction (Intermediate, Verified 03/30/24 09:06) DIARRHEA/VOMITING sumatriptan [From Imitrex] Adverse Reaction (Verified 03/30/24 09:06) Palpitations [employer] Allergy (Intermediate, Uncoded 03/30/24 09:06) inflammation and swelling Do you need a note to return to daycare/school/sports/work: No HPI EP- bronchitis HPI Details 53 year old female patient presents to [facility] clinic today with report of ongoing productive cough with yellow sputum, sinus/head pressure, and occasional shortness of breath. She was seen here last week and Cov/Flu/RSV was negative. She denies any known exposure to sick contacts. She denies any fever, however reports body aches. She does have an albuterol inhaler at home for history of asthma, however requests refills to be used with her nebulizer. She was previously prescribed Doxy and prednisone and she has completed these regimens however has ongoing symptoms. [facility] Medical History Cough in adult Former cigarette smoker Generalized osteoarthritis of multiple sites Elevated liver transaminase level Microhematuria Candidiasis Tubular adenoma Controlled diabetes mellitus type II without complication Diarrhea Lower thoracic back pain Pancreatic insufficiency Pelvic pain Mild intermittent asthma Depression with anxiety COVID-19 vaccination declined Decreased hearing of right ear Tinnitus of right ear Arthritis Mixed stress and urge incontinence GERD (gastroesophageal reflux disease) Type 2 diabetes mellitus with microalbuminuria, with long-term current use of insulin B12 deficiency Non-toxic multinodular goiter Dyslipidemia Obesity (BMI 30-39.9) Restless leg syndrome Vertigo Fibromyalgia Anxiety Surgical History H/O thyroidectomy Hx of BSO (bilateral salpingo-oophorectomy) Hx of laparoscopy Hx of colonoscopy History of esophagogastroduodenoscopy (EGD) Hx of appendectomy Hx of cholecystectomy Hx of section Family History Father Diabetes mellitus Heart murmur Arthritis Mother Diabetes mellitus HTN (hypertension) Glaucoma Melanoma Arthritis Sister Arthritis Social History Household Members: Family Housing: House Do you presently have visiting nurse or other home services: Yes Alcohol intake: never Patient Tobacco Use Status: Former Tobacco user Tobacco use type: Cigarette Cigarettes Per Day: 0 Years Smoked: 34 e-Cigarette/Vaping Use: Never Used Advance Directives Date on File: 06/21/22 service: No Current occupational status: unemployed Sexual orientation: Straight/Heterosexual Gender identity: Female Cognitive needs: No Hearing needs: No Vision needs: No Review of Systems Const All systems reviewed & are unremarkable except as noted in HPI and below Physical Exam Vital Signs: BMI result Body Mass Index 32.3 Const General: cooperative and ill appearing acutely HEENT Head: Yes normal to inspection Ears: hearing grossly normal bilaterally General nose exam: Normal external nose present and Nasal discharge present mucoid Face and sinus: Yes sinus tenderness (maxillary, frontal) Mouth: Normal oral and palatal mucosa present Throat: Yes posterior oropharynx normal Neck Neck: Yes no lymphadenopathy Resp Effort & Inspection: normal respiratory effort and Actively coughing Quality: actively coughing Auscultation: wheezes (mild) upper bilaterally Cardio Rate: regular rate Rhythm: regular rhythm Skin General skin exam: no rashes or lesions noted Extrem General: Yes capillary refill normal and Yes no clubbing, cyanosis or edema Psych Appearance: grossly normal Mental Status: mental status grossly normal Speech and movement: Normal speech and movement present Assessment & Plan Assessment & Plan (1) Upper respiratory infection: Code(s): J06.9 - Acute upper respiratory infection, unspecified Qualifiers: URI type: unspecified URI Qualified Code(s): J06.9 - Acute upper respiratory infection, unspecified Plan: Patient has done well previously on azithromycin - will send Z-pack and also refills for her home nebulizer. Encouraged albuterol inhaler use p.r.n.. I also encouraged her to purchase some [id number] cold/flu medication for ongoing cold symptoms. Viral panel was negative as of last week. No new exposures per patient. We reviewed indications, use, possible side effects of medication. If she does not improve with treatment, or if new symptoms develop/symptoms worsen, particularly shortness of breath, she should return to the clinic or go to the emergency department for evaluation. She verbalizes understanding and agrees to plan. Medications: New azithromycin For 250 mg dose pack: take 500 mg today (day 1), then 250 mg for 4 days (days 2-5) PO 6 tabs 0RF J06.9 - Acute upper respiratory infection, unspecified Refilled albuterol sulfate 2.5 mg (3 mL) inhalation QID PRN 75 mL 0RF shortness of breath or wheezing Coding Level of Care Code Est Pt Level 4 (48536) Diagnoses Upper respiratory tract infection, unspecified type J06.9 URI type: unspecified URI
== END 2024-03-30 09:27 | disposition home or self-care (01) ==
PROVIDERS: PCP Internal Medicine; Visit Provider Nurse Practitioner Family
DX: J06.9 Acute upper respiratory infection, unspecified (principal)
CPT/HCPCS: 99214

== ENCOUNTER 2024-06-05 08:12 | Outpatient (REF) | payer OTHER, SELFPAY ==
--- NOTE | ~2024-06-05 | XR_ITS ---
EXAMINATION: XR CHEST CLINICAL INFORMATION: Acute URI COMPARISON: 06/14/2023 TECHNIQUE: 2 views of the chest were obtained. FINDINGS: No focal consolidation, pulmonary edema, or pleural effusion. Normal cardiomediastinal silhouette. XR/XR chest 2V IMPRESSION: No acute cardiopulmonary findings. Electronically signed by: Tyson Brewster MD 06/05/2024 10:58 AM [facility]
== END 2024-06-05 08:13 | disposition home or self-care (01) ==
LOC: HO.HMGCX 08:12
PROVIDERS: PCP Internal Medicine; Visit Provider Nurse Practitioner Family
DX: Z13.89 Encounter for screening for other disorder (principal)
CPT/HCPCS: 71046; 99212

== ENCOUNTER 2024-06-05 08:12 | Outpatient (AMB) | payer OTHER, SELFPAY ==
--- NOTE | 2024-06-05 08:50 | AM.OFFWIN_ITS ---
Intake Vital Signs 06/05/24 08:52 Height 5 ft 4 in Weight 198 lb BMI 34.0 BP 128/90 H Blood Pressure Location Rt brachial Position Sitting Pulse 96 Pulse Source Pulse Oximeter Pulse Oximetry (%) 98 Oxygen Delivery Method Room Air Intake Visit Reasons: EP cough, body pain, chest Intake Note: Patient here for body pain, chest tightness and cough that has been present for about 1 week. Patient Tobacco Use Status: Former Tobacco user [employer] Required: Yes Allergies aspirin Allergy (Intermediate, Verified 06/05/24 08:53) rash latex [LATEX] Allergy (Mild, Verified 06/05/24 08:53) HIVES/RASH Penicillins Allergy (Mild, Verified 06/05/24 08:53) unknown amoxicillin Adverse Reaction (Intermediate, Verified 06/05/24 08:53) diarrhea Beef Containing Products Adverse Reaction (Intermediate, Verified 06/05/24 08:53) DIARRHEA/VOMITING sumatriptan [From Imitrex] Adverse Reaction (Verified 06/05/24 08:53) Palpitations [employer] Meats [employer] Seafood Allergy (Intermediate, Uncoded 06/05/24 08:53) inflammation and swelling Do you need a note to return to daycare/school/sports/work: No HPI HPI Comments History of Present Illness Details 53 y/o female patient who presents to [facility] walk in clinic with c/o URI symptoms x 1 week. She has been seen multiple times here at the walk in clinic for similar symptoms. Last seen in Mar and was prescrined Zpack with good symptom relief. H/O Asthma PFSH Medical History Cough in adult Former cigarette smoker Generalized osteoarthritis of multiple sites Elevated liver transaminase level Microhematuria Candidiasis Tubular adenoma Controlled diabetes mellitus type II without complication Diarrhea Lower thoracic back pain Pancreatic insufficiency Pelvic pain Mild intermittent asthma Depression with anxiety COVID-19 vaccination declined Decreased hearing of right ear Tinnitus of right ear Arthritis Mixed stress and urge incontinence GERD (gastroesophageal reflux disease) Type 2 diabetes mellitus with microalbuminuria, with long-term current use of insulin B12 deficiency Non-toxic multinodular goiter Dyslipidemia Obesity (BMI 30-39.9) Restless leg syndrome Vertigo Fibromyalgia Anxiety Surgical History H/O thyroidectomy Hx of BSO (bilateral salpingo-oophorectomy) Hx of laparoscopy Hx of colonoscopy History of esophagogastroduodenoscopy (EGD) Hx of appendectomy Hx of cholecystectomy Hx of section Family History Father Diabetes mellitus Heart murmur Arthritis Mother Diabetes mellitus HTN (hypertension) Glaucoma Melanoma Arthritis Sister Arthritis Social History Household Members: Family Housing: House Do you presently have visiting nurse or other home services: Yes Alcohol intake: never Patient Tobacco Use Status: Former Tobacco user Tobacco use type: Cigarette Cigarettes Per Day: 0 Years Smoked: 34 e-Cigarette/Vaping Use: Never Used Advance Directives Date on File: 06/21/22 service: No Current occupational status: unemployed Sexual orientation: Straight/Heterosexual Gender identity: Female Cognitive needs: No Hearing needs: No Vision needs: No Review of Systems Const All systems reviewed & are unremarkable except as noted in HPI and below Physical Exam Vital Signs: Last Vital Signs Pulse 96 06/05/24 08:52 BP 128/90 H 06/05/24 08:52 Pulse Ox 98 06/05/24 08:52 Oxygen Delivery Method Room Air 06/05/24 08:52 BMI result Body Mass Index 34.0 Const General: cooperative and no acute distress Nutritional Appearance: obese Orientation/consciousness: patient oriented x3 HEENT Head: Yes normocephalic Ears: external ears normal and TM's normal bilaterally General nose exam: Normal external nose present Face and sinus: Yes sinuses nontender Mouth: moist mucous membranes Resp Effort & Inspection: normal respiratory effort and able to speak in complete sentences Auscultation: clear to auscultation bilaterally, crackles, rales, rhonchi and wheezes Cardio Heart sounds: S1 normal heart sound present and S2 normal heart sound present Neuro General: patient oriented x3, gait normal and moves all extremities Psych Speech and movement: Normal speech and movement present Assessment & Plan Assessment & Plan (1) Acute respiratory disease: Code(s): J06.9 - Acute upper respiratory infection, unspecified Plan: Ordered SARs Ordered Chest Xray OTC cold remedies Rest and hydrate well. (2) Cough in adult: Code(s): R05.9 - Cough, unspecified Plan: Ordered SARs Ordered Chest Xray OTC cold remedies Rest and hydrate well. Orders: Orders XR chest 2V Today J06.9 - Acute upper respiratory infection, unspecified, R05.9 - Cough, unspecified SARS-CoV2/FLU/RSV Today J06.9 - Acute upper respiratory infection, unspecified, R09.89 - Other specified symptoms and signs involving the circulatory and respiratory systems Coding Level of Care Code Est Pt Level 4 (68244) Diagnoses Acute respiratory disease J06.9 Cough in adult R05.9 Time Spent (min) 20
[2024-06-05 08:52] VITALS: BP 128/90; PULSE 96; O2SAT 98; BMI 34.0
== END 2024-06-05 09:35 | disposition home or self-care (01) ==
PROVIDERS: PCP Internal Medicine; Visit Provider Nurse Practitioner Family
DX: J06.9 Acute upper respiratory infection, unspecified (principal); R05.9 Cough, unspecified

== ENCOUNTER 2024-06-05 09:16 | Outpatient (REF) | payer OTHER, SELFPAY ==
[2024-06-05 10:47] LABS: Influenza A PCR NEGATIVE (Negative); Influenza B PCR NEGATIVE (Negative); Resp Syncy Virus RNA Qual PCR NEGATIVE (Negative); SARS COV2 PCR INHOUSE NEGATIVE (Negative)
== END 2024-06-05 09:17 | disposition home or self-care (01) ==
LOC: HO.LAB 09:16
PROVIDERS: Visit Provider Nurse Practitioner Family
DX: R09.89 Other specified symptoms and signs involving the circulatory and respiratory systems (principal); J06.9 Acute upper respiratory infection, unspecified
CPT/HCPCS: 0241U; 71046; 99212

== ENCOUNTER 2024-07-13 08:51 | Emergency (ER) | payer OTHER, SELFPAY ==
--- NOTE | ~2024-07-13 | XR_ITS ---
EXAMINATION: XR CHEST CLINICAL INFORMATION: sob COMPARISON: X-ray 06/05/2024 TECHNIQUE: 2 views of the chest were obtained. FINDINGS: The cardiomediastinal silhouette is within normal limits. The lungs are well expanded. There is no focal consolidation, edema, or effusion. Mild right lower lung bronchial wall thickening, appearing slightly more prominent as compared to previous previous. No pneumothorax. No acute osseous abnormality. XR/XR chest 2V IMPRESSION: Mild lower lung bronchial wall thickening can be seen with small airway disease. Electronically signed by: Chris Brandon MD 07/13/2024 11:15 AM [place]
[2024-07-13 08:54] VITALS: BP 125/69; PULSE 97; RESP 20; TEMP 36.3; O2SAT 96; BMI 34.0
[2024-07-13 09:19] LABS: MANUAL DIFF FLAG NO
[2024-07-13 09:23] LABS: Basophils Absolute Auto 0.1 X10*3/uL (0.0-0.2); Basophils Percent Auto 0.9 % (0-2); Eosinophils Absolute Auto 0.1 X10*3/uL (0.0-0.4); Eosinophils Percent Auto 1.4 % (0-4); Hematocrit 38.6 % (37.0-47.0); Hemoglobin 13.4 g/dl (12.0-16.0); Imm Gran Abs Auto 0.01 X10*3/uL (0.00-0.03); Imm Gran Pct Auto 0.2 % (0.0-0.4); Lymphocytes Absolute Auto 2.5 X10*3/uL (1.2-4.9); Lymphocytes Percent Auto 39.1 % (20-40); Mean Corpuscular HGB Conc 34.7 g/dl (31.0-35.0); Mean Corpuscular Hemoglobin 31.8 pg (27.0-33.0); Mean Corpuscular Volume 91.5 fL (80.0-98.0); Mean Platelet Volume 9.5 fL (9.4-12.3); Monocytes Absolute Auto 0.4 X10*3/uL (0.1-1.2); Monocytes Percent Auto 6.5 % (2-11); Neutrophils Absolute Auto 3.3 x10*3/uL (2.0-8.3); Neutrophils Percent Auto 51.9 % (45-73); Platelet Count 234 X10*3/uL (160-400); Red Blood Count 4.22 X10*6/uL (4.20-5.50); Red Cell Distribution Width 12.4 % (11.0-16.0); White Blood Count 6.3 X10*3/uL (4.8-10.8)
[2024-07-13 09:40] LABS: Albumin Level 4.2 g/dL (3.5-5.0); Anion Gap 13 (12-20); Aspartate Amino Transferase 40 U/L (5-31); Bilirubin Total 0.5 mg/dL (0.0-1.0); Blood Urea Nitrogen 13 mg/dL (9-16); Carbon Dioxide 22 mmol/L (22-29); Chloride 112 mmol/L (96-108); Creatinine Clr Calc Pharmacy 87.1; Estimated Glomerular Filt Rate > 60; Glucose Random 143 mg/dL (60-115); Potassium 3.7 mmol/L (3.3-5.1); Sodium 143 mmol/L (135-145); Total Protein 6.4 g/dL (6.5-8.0)
[2024-07-13 09:44] LABS: B Type Natriuretic Peptide < 10 pg/mL (<100)
[2024-07-13 10:12] VITALS: BP 103/54; PULSE 83; RESP 18; TEMP 36.7; O2SAT 95
[2024-07-13 10:16] LABS: Alanine Aminotransferase 33 U/L (0-31); Alkaline Phosphatase 125 U/L (39-117)
--- NOTE | 2024-07-13 12:47 | ED_ITS ---
HPI - General Adult General Chief complaint: Extremity Problem Stated complaint: body pain/swollen legs Time Seen by Provider: 07/13/24 12:44 Related Data Home Medications ?Medication ?Instructions ?Recorded ?Confirmed clonazepam 1 mg tablet 1 mg PO BID PRN Anxiety 04/28/20 02/17/24 zolpidem 10 mg tablet 10 mg PO BEDTIME PRN Insomnia 07/20/21 02/17/24 nortriptyline 25 mg capsule 25 mg PO BEDTIME 09/15/22 02/17/24 topiramate 100 mg tablet 100 mg PO BID 09/15/22 02/17/24 Previous Rx's ?Medication ?Instructions ?Recorded cane with quad tips #1 ea 01/28/21 methylcellulose (laxative) 500 mg 500 mg PO DAILY #90 tabs 05/05/22 tablet (Citrucel) ondansetron 4 mg disintegrating 4 mg PO DAILY PRN Nausea #14 tabs 06/21/22 tablet meclizine 12.5 mg tablet 12.5 mg PO DAILY PRN dizziness #20 06/25/22 tabs blood-glucose meter (FreeStyle #1 ea 02/14/23 Lite Meter kit) ibuprofen 600 mg tablet 600 mg PO Q6H PRN pain #20 tabs 03/12/23 alcohol swabs (Alcohol Prep Pads) 1 pad topical TID #200 ea 03/24/23 fluticasone propionate 50 2 spray intranasal DAILY #16 grams 06/14/23 mcg/actuation nasal spray,suspension (Flonase Allergy Relief) cholestyramine-aspartame 4 gram 4 g PO BID #231 grams 07/29/23 oral powder (Cholestyramine Light) albuterol sulfate 90 mcg/actuation 2 puff inhalation Q6H PRN for 08/14/23 aerosol inhaler (Ventolin HFA) wheezing #18 grams body wipes #200 ea 09/13/23 diaper,brief,adult,disposable #100 ea 09/13/23 disposable bed pad #100 ea 09/13/23 methyl salicylate 10 %-menthol 3 % 1 patch topical Q8-12H PRN muscle 09/13/23 topical patch (Salonpas (methyl pain #20 ea salicylate-menthol)) ezetimibe 10 mg tablet 10 mg PO BEDTIME #90 tabs 09/26/23 bisacodyl 5 mg tablet,delayed 10 mg (2 x 5 mg) PO BEDTIME #180 10/10/23 release (Dulcolax (bisacodyl)) tabs [id number]-[id number]-fsxzuaf 1 cap PO QID #120 caps 10/10/23 36,000-114,000-180,000 unit capsule,delay rel (Creon) cyclobenzaprine 10 mg tablet 10 mg PO .qd PRN muscle spasm #14 11/04/23 tabs diclofenac sodium 1 % topical gel 2 g topical QID PRN Joint pain 11/04/23 #100 grams estradiol 0.01% (0.1 mg/gram) See Rx Instructions vaginal 3XW 90 12/09/23 vaginal cream days #42.5 grams mirabegron 25 mg tablet,extended 25 mg PO DAILY 90 days #90 tabs 12/09/23 release 24 hr (Myrbetriq) cetirizine 10 mg tablet 10 mg PO DAILY #90 tabs 02/22/24 duloxetine 30 mg capsule,delayed 30 mg PO BID #180 caps 02/22/24 release ropinirole 0.5 mg tablet 0.5 mg PO BEDTIME #90 caps 02/22/24 cholecalciferol (vitamin D3) 25 25 mcg PO DAILY #90 tabs 03/26/24 mcg (1,000 unit) tablet gabapentin 400 mg capsule 400 mg PO TID 30 days #90 caps 03/27/24 albuterol sulfate 2.5 mg/3 mL 2.5 mg (3 mL) inhalation QID PRN 03/30/24 (0.083 %) solution for nebulization shortness of breath or wheezing #75 mL Trulicity 3 mg/0.5 mL subcutaneous 3 mg (0.5 mL) subcut FR@1000 #2 mL 04/13/24 pen injector (dulaglutide) blood sugar diagnostic (FreeStyle #300 ea 04/23/24 Lite Strips) lancets 28 gauge (FreeStyle #300 ea 04/23/24 Lancets) rosuvastatin 5 mg tablet 5 mg PO DAILY #90 tabs 04/23/24 omeprazole 20 mg capsule,delayed 20 mg PO DAILY@0630 gerd #30 caps 04/25/24 release incontinence/panty liners pad #120 ea 05/09/24 fluticasone 250 mcg-salmeterol 50 1 inh inhalation BID #180 ea 05/23/24 mcg/dose blistr powdr for inhalation (Advair Diskus) pen needle, diabetic 32 gauge x #100 ea 05/24/2432 (BD Vanessa 2nd Gen Pen Needle) Adult rollator walker #1 ea 06/15/24 Shower chair with back #1 ea 06/15/24 large pill box with am, noon, #1 ea 06/15/24 evening & night pockets insulin degludec 100 unit/mL (3 18 unit (0.18 mL) subcut BEDTIME 06/27/24 mL) subcutaneous pen (Tresiba 90 days #30 mL FlexTouch U-100 insulin) lidocaine 5 % topical patch 1 patch topical DAILY PRN pain, 07/02/24 moderate #30 ea cyclobenzaprine 5 mg tablet 5 mg PO TID PRN muscle spasm or 07/13/24 pain #14 tabs Allergies Allergy/AdvReac Type Severity Reaction Status Date / Time aspirin Allergy Intermediate rash Verified 07/13/24 08:56 latex [LATEX] Allergy Mild HIVES/RASH Verified 07/13/24 08:56 Penicillins Allergy Mild unknown Verified 07/13/24 08:56 amoxicillin AdvReac Intermediate diarrhea Verified 07/13/24 08:56 Beef Containing Products AdvReac Intermediate DIARRHEA/VO Verified 07/13/24 08:56 MITING sumatriptan [From Imitrex] AdvReac Palpitation Verified 07/13/24 08:56 s [employer] Allergy Intermediate inflammation Uncoded 07/13/24 08:56 and swelling PMFSH Past Medical History Medical History (Updated 07/13/24 @ 14:00 by Ozzy Garza MD) Cough in adult Former cigarette smoker Generalized osteoarthritis of multiple sites Elevated liver transaminase level Microhematuria Candidiasis Tubular adenoma Controlled diabetes mellitus type II without complication Diarrhea Lower thoracic back pain Pancreatic insufficiency Pelvic pain Mild intermittent asthma Depression with anxiety COVID-19 vaccination declined Decreased hearing of right ear Tinnitus of right ear Arthritis Mixed stress and urge incontinence GERD (gastroesophageal reflux disease) Type 2 diabetes mellitus with microalbuminuria, with long-term current use of insulin B12 deficiency Non-toxic multinodular goiter Dyslipidemia Obesity (BMI 30-39.9) Restless leg syndrome Vertigo Fibromyalgia Anxiety Surgical History H/O thyroidectomy Hx of BSO (bilateral salpingo-oophorectomy) Hx of laparoscopy Hx of colonoscopy History of esophagogastroduodenoscopy (EGD) Hx of appendectomy Hx of cholecystectomy Hx of section Family History Family History Father Diabetes mellitus Heart murmur Arthritis Mother Diabetes mellitus HTN (hypertension) Glaucoma Melanoma Arthritis Sister Arthritis Social History Social History Household Members: Family Housing: House Do you presently have visiting nurse or other home services: Yes Alcohol intake: never Patient Tobacco Use Status: Former Tobacco user Tobacco use type: Cigarette Cigarettes Per Day: 0 Years Smoked: 34 Smoked in Last 30 Days: No e-Cigarette/Vaping Use: Never Used Use of substances other than those prescribed or required for medical reasons: No Advance Directives: Yes Advance Directives on File: Yes Advance Directives Date on File: 06/21/22 service: No Current occupational status: unemployed Sexual orientation: Straight/Heterosexual Gender identity: Female Cognitive needs: No Hearing needs: No Vision needs: No Physical Exam ED Vital Signs: Vital Signs - 24 hr 07/13/24 08:54 07/13/24 10:12 07/13/24 13:21 Temperature 97.4 F 98.0 F 97.0 F Pulse Rate 97 83 84 Respiratory Rate 20 18 14 Blood Pressure 125/69 103/54 L 104/51 L Pulse Oximetry 96 95 98 Oxygen Delivery Method Room Air Room Air Room Air BMI result Body Mass Index 34.0 Medical Decision Making Lab Data 07/13/24 09:15 07/13/24 09:15 Labs: Lab Results 07/13/24 Range/Units 09:15 WBC 6.3 (4.8-10.8) X10*3/uL RBC 4.22 (4.20-5.50) X10*6/uL Hgb 13.4 (12.0-16.0) g/dl Hct 38.6 (37.0-47.0) % MCV 91.5 (80.0-98.0) fL MCH 31.8 (27.0-33.0) pg MCHC 34.7 (31.0-35.0) g/dl RDW 12.4 (11.0-16.0) % Plt Count 234 (160-400) X10*3/uL MPV 9.5 (9.4-12.3) fL Immature Gran % (Auto) 0.2 (0.0-0.4) % Neut % (Auto) 51.9 (45-73) % Lymph % (Auto) 39.1 (20-40) % [place] % (Auto) 6.5 (2-11) % Eos % (Auto) 1.4 (0-4) % Baso % (Auto) 0.9 (0-2) % Lymph # (Auto) 2.5 (1.2-4.9) X10*3/uL [place] # (Auto) 0.4 (0.1-1.2) X10*3/uL Eos # (Auto) 0.1 (0.0-0.4) X10*3/uL Baso # (Auto) 0.1 (0.0-0.2) X10*3/uL Abs Immat Gran (auto) 0.01 (0.00-0.03) X10*3/uL Absolute Neuts (auto) 3.3 (2.0-8.3) x10*3/uL Absolute Nucleated RBC 0.000 (0.0-0.012) X10*3/uL Nucleated RBC % (auto) 0.0 (0.0-0.2) /100WBC Sodium 143 (135-145) mmol/L Potassium 3.7 (3.3-5.1) mmol/L Chloride 112 H (96-108) mmol/L Carbon Dioxide 22 (22-29) mmol/L Anion Gap 13 (12-20) BUN 13 (9-16) mg/dL Creatinine 0.81 (0.5-1.4) mg/dL Estim Creat Clear Calc 87.1 Estimated GFR > 60 Random Glucose 143 H (60-115) mg/dL Calcium 10.0 (8.4-10.2) mg/dL Total Bilirubin 0.5 (0.0-1.0) mg/dL AST 40 H (5-31) U/L ALT 33 H (0-31) U/L Alkaline Phosphatase 125 H (39-117) U/L B-Natriuretic Peptide < 10 (<100) pg/mL Total Protein 6.4 L (6.5-8.0) g/dL Albumin 4.2 (3.5-5.0) g/dL Radiology Impression Discussion of test interpretation with radiology: I have reviewed the radiologist's reading. Radiologist Impression: XR chest 2V IMPRESSION: Mild lower lung bronchial wall thickening can be seen with small airway disease. Electronically signed by: Chris Brandon MD 07/13/2024 11:15 AM EST Discharge Plan Discharge Clinical Impression: Fibromyalgia, Swelling of both lower extremities Patient Disposition: Home, Self-Care Instructions: Fibromyalgia (ED) Additional Instructions: Your blood work was unremarkable. In the past, you were prescribed Flexeril (cyclobenzaprine) for pain and spasm, therefore I am going to prescribe this medication for your again to see if it helps with your pain. Take Flexeril (cyclobenzaprine) 5 mg pills, 1 pill every 6-8 hours as needed for pain or spasm. ?This medication will make you sleepy. ?Do not drive or work while taking this medication. Continue taking your pain medications as prescribed by your providers Follow-up with your doctor in 2 days. Please return to the emergency department if your symptoms get worse or if you develop any symptoms that are concerning to you. Prescriptions: New cyclobenzaprine 5 mg tablet 5 mg PO TID PRN (Reason: muscle spasm or pain) Qty: 14 0RF No Action meclizine 12.5 mg tablet 12.5 mg PO DAILY PRN (Reason: dizziness) Qty: 20 1RF (DME) blood-glucose meter [FreeStyle Lite Meter] Kit See Rx Instructions .Route Qty: 1 0RF Rx Instructions: As directed Cholestyramine Light 4 gram powder 4 g PO BID Qty: 231 3RF Rx Instructions: administer w/meal; avoid other meds within 1hr before or 4-6hr after dose albuterol sulfate [Ventolin HFA] 90 mcg/actuation HFA aerosol inhaler 2 puff inhalation Q6H PRN (Reason: for wheezing) Qty: 18 5RF (DME) body wipes See Rx Instructions .Route .MEDSUPPLY Qty: 200 11RF Rx Instructions: As directed 6-7 per day (DME) diaper,brief,adult,disposable Misc See Rx Instructions .Route Qty: 100 11RF Rx Instructions: As directed up to 3 per day Salonpas(m.salicylate-menthol) 10-3 % adhesive patch,medicated 1 patch topical Q8-12H PRN (Reason: muscle pain) Qty: 20 1RF Rx Instructions: do not exceed 2 doses in a 24 hour period (DME) disposable bed pad See Rx Instructions .Route .MEDSUPPLY Qty: 100 11RF Rx Instructions: As directed ezetimibe 10 mg tablet 10 mg PO BEDTIME Qty: 90 3RF ropinirole 0.5 mg tablet 0.5 mg PO BEDTIME Qty: 90 1RF duloxetine 30 mg capsule,delayed release(DR/EC) 30 mg PO BID Qty: 180 1RF cetirizine 10 mg tablet 10 mg PO DAILY Qty: 90 1RF cholecalciferol (vitamin D3) 25 mcg (1,000 unit) tablet 25 mcg PO DAILY Qty: 90 1RF gabapentin 400 mg capsule 400 mg PO TID 30 Days Qty: 90 4RF Trulicity 3 mg/0.5 mL pen injector 3 mg subcut FR@1000 Qty: 2 5RF (DME) FreeStyle Lite Strips Strip See Rx Instructions .Route Qty: 300 1RF Rx Instructions: test blood sugar 3 times per day (DME) lancets [FreeStyle Lancets] 28 gauge misc See Rx Instructions .Route Qty: 300 1RF Rx Instructions: test blood sugar 3 times per day rosuvastatin 5 mg tablet 5 mg PO DAILY Qty: 90 1RF omeprazole 20 mg capsule,delayed release(DR/EC) 20 mg PO DAILY@0630 Qty: 30 2RF (DME) incontinence/panty liners pad See Rx Instructions .Route .MEDSUPPLY Qty: 120 11RF Rx Instructions: As directed 4 times a day as needed fluticasone propion-salmeterol [Advair Diskus] 250-50 mcg/dose blister with device 1 inh inhalation BID Qty: 180 1RF (DME) pen needle, diabetic [BD Vanessa 2nd Gen Pen Needle] 32 gauge x 5/32 needle See Rx Instructions .Route Qty: 100 3RF Rx Instructions: Use to inject insulin once a day (DME) Adult rollator walker See Rx Instructions .Route .MEDSUPPLY Qty: 1 0RF Rx Instructions: As directed (DME) Shower chair with back See Rx Instructions .Route .MEDSUPPLY Qty: 1 0RF Rx Instructions: As directed (DME) large pill box with am, noon, evening & night pockets See Rx Instructions .Route .MEDSUPPLY Qty: 1 0RF Rx Instructions: As directed insulin degludec [Tresiba FlexTouch U-100] 100 unit/mL (3 mL) insulin pen 18 unit subcut BEDTIME 90 Days Qty: 30 4RF lidocaine 5 % adhesive patch,medicated 1 patch topical DAILY PRN (Reason: pain, moderate) Qty: 30 1RF Rx Instructions: leave on most painful area for up to 12 hrs fluticasone propionate [Flonase Allergy Relief] 50 mcg/actuation spray,suspension 2 spray intranasal DAILY Qty: 16 0RF Rx Instructions: administer into each nostril ibuprofen 600 mg tablet 600 mg PO Q6H PRN (Reason: pain) Qty: 20 0RF clonazepam 1 mg tablet 1 mg PO BID PRN (Reason: Anxiety) (DME) cane with quad tips See Rx Instructions .Route .MEDSUPPLY Qty: 1 0RF Rx Instructions: use as directed ondansetron 4 mg tablet,disintegrating 4 mg PO DAILY PRN (Reason: Nausea) Qty: 14 0RF diclofenac sodium 1 % gel 2 g topical QID PRN (Reason: Joint pain) Qty: 100 2RF Rx Instructions: apply to single elbow, wrist or hand; for hand includes palm/fingers/back of hand cyclobenzaprine 10 mg tablet 10 mg PO .qd PRN (Reason: muscle spasm) Qty: 14 0RF alcohol swabs [Alcohol Prep Pads] Pads, Medicated 1 pad topical TID Qty: 200 2RF albuterol sulfate 2.5 mg /3 mL (0.083 %) solution for nebulization 2.5 mg inhalation QID PRN (Reason: shortness of breath or wheezing) Qty: 75 0RF zolpidem 10 mg tablet 10 mg PO BEDTIME PRN (Reason: Insomnia) Citrucel 500 mg tablet 500 mg PO DAILY Qty: 90 3RF Rx Instructions: take it with full glass of water topiramate 100 mg tablet 100 mg PO BID nortriptyline 25 mg capsule 25 mg PO BEDTIME Creon 36,000-114,000- 180,000 unit capsule,delayed release(DR/EC) 1 cap PO QID Qty: 120 5RF Rx Instructions: administer with meals and/or snacks bisacodyl [Dulcolax (bisacodyl)] 5 mg tablet,delayed release (DR/EC) 10 mg PO BEDTIME Qty: 180 4RF estradiol 0.01 % (0.1 mg/gram) cream See Rx Instructions vaginal 3XW 90 Days Qty: 42.5 3RF Rx Instructions: vaginally 3 times a week; pea sized amount to urethra 3 times a week Myrbetriq 25 mg tablet extended release 24 hr 25 mg PO DAILY 90 Days Qty: 90 3RF Print Language: Armenian
[2024-07-13 13:21] VITALS: BP 104/51; PULSE 84; RESP 14; TEMP 36.1; O2SAT 98
[2024-07-13 14:15] VITALS: BP 108/62; PULSE 76; RESP 18; TEMP 36.8; O2SAT 99
== END 2024-07-13 14:16 | disposition home or self-care (01) ==
PROVIDERS: Emergency Provider Emergency Medicine Emergency Medical Services; PCP Internal Medicine
DX: M79.89 Other specified soft tissue disorders (principal); R06.02 Shortness of breath; M79.7 Fibromyalgia; E11.9 Type 2 diabetes mellitus without complications; E78.5 Hyperlipidemia, unspecified; K21.9 Gastro-esophageal reflux disease without esophagitis; Z79.899 Other long term (current) drug therapy
CPT/HCPCS: 36415; 71046; 80053; 83880; 85025; 99283; 99284

== ENCOUNTER 2024-07-17 08:05 | Outpatient (AMB) | payer OTHER, SELFPAY ==
--- NOTE | 2024-07-17 08:34 | MHC.OFFVIS ---
Intake Visit Reasons: 6m/PVR Intake Note: Patient presents today for follow up visit for microscopic hematuria, frequency, urgency, nocturia Urology Medications: myrbetriq, estrace cream Blood Thinner: none PVR: 0ml's Manager [employer] Required: Yes Manager Construction Name: [id number] Accompanied by: Self / Same As Patient Allergies aspirin Allergy (Intermediate, Verified 07/17/24 08:56) rash latex [LATEX] Allergy (Mild, Verified 07/17/24 08:56) HIVES/RASH Penicillins Allergy (Mild, Verified 07/17/24 08:56) unknown amoxicillin Adverse Reaction (Intermediate, Verified 07/17/24 08:56) diarrhea Beef Containing Products Adverse Reaction (Intermediate, Verified 07/17/24 08:56) DIARRHEA/VOMITING sumatriptan [From Imitrex] Adverse Reaction (Verified 07/17/24 08:56) Palpitations [employer] Se[employer] Allergy (Intermediate, Uncoded 07/17/24 08:56) inflammation and swelling Medication List - Last Reconciled 07/17/24 by KYLEIGH Morin [incontinence/panty liners pad As directed 4 times a day as needed] [Adult rollator walker As directed NS] albuterol sulfate 90 mcg/actuation (Ventolin HFA) 2 puffs inhalation Q6H PRN albuterol sulfate 2.5 mg (3 mL) inhalation QID PRN alcohol swabs (Alcohol Prep Pads) 1 pad topical TID bisacodyl (Dulcolax (bisacodyl)) 10 mg (2 x 5 mg) PO BEDTIME blood sugar diagnostic (FreeStyle Lite Strips) test blood sugar 3 times per day blood-glucose meter (FreeStyle Lite Meter kit) As directed [body wipes As directed 6-7 per day] [cane with quad tips use as directed] cetirizine 10 mg PO DAILY cholecalciferol (vitamin D3) 25 mcg PO DAILY cholestyramine-aspartame 4 gram (Cholestyramine Light) 4 grams PO BID clonazepam 1 mg PO BID PRN cyclobenzaprine 5 mg PO TID PRN cyclobenzaprine 10 mg PO .qd PRN diaper,brief,adult,disposable As directed up to 3 per day diclofenac sodium 1% 2 grams topical QID PRN [disposable bed pad As directed] duloxetine 30 mg PO BID estradiol 0.01%(0.1mg/gram) vaginally 3 times a week; pea sized amount to urethra 3 times a week 90 days ezetimibe 10 mg PO BEDTIME fluticasone propion-salmeterol 250-50 mcg/dose (Advair Diskus) 1 inh inhalation BID fluticasone propionate 50 mcg/actuation (Flonase Allergy Relief) 2 sprays intranasal DAILY gabapentin 400 mg PO TID 30 days ibuprofen 600 mg PO Q6H PRN insulin degludec (Tresiba FlexTouch U-100 insulin) 18 units (0.18 mL) subcut BEDTIME 90 days lancets (FreeStyle Lancets) test blood sugar 3 times per day [large pill box with am, noon, evening & night pockets As directed NS] lidocaine 5% 1 patch topical DAILY PRN epfedu-racujjby-mybsglm 36,000-114,000- 180,000 unit (Creon) 1 cap PO QID meclizine 12.5 mg PO DAILY PRN methyl salicylate-menthol 10-3 % (Salonpas (methyl salicylate-menthol)) 1 patch topical Q8-12H PRN methylcellulose (laxative) (Citrucel) 500 mg PO DAILY mirabegron ER (Myrbetriq) 25 mg PO DAILY 90 days nortriptyline 25 mg PO BEDTIME omeprazole 20 mg PO DAILY@0630 ondansetron 4 mg PO DAILY PRN pen needle, diabetic (BD Vanessa 2nd Gen Pen Needle) Use to inject insulin once a day ropinirole 0.5 mg PO BEDTIME rosuvastatin 5 mg PO DAILY [Shower chair with back As directed] topiramate 100 mg PO BID Trulicity (dulaglutide) 3 mg (0.5 mL) subcut FR@1000 NS zolpidem 10 mg PO BEDTIME PRN HPI Comments Details: Demi is a 53-year-old Liberian-speaking female patient of Dr. Nova. She has a past medical history of diabetes, asthma, depression, anxiety, bilateral hearing loss, arthritis, GERD, dyslipidemia, obesity, restless leg syndrome, vertigo, and fibromyalgia. In discussion with the patient today she reports to be doing and feeling well. She reports to be happy with current voiding parameters on her 25 mg of Myrbetriq. She reports compliance with Estrace cream 3 times per week as prescribed. She currently denies any bothersome urinary issues or concerns. She denies urinary urgency, urinary frequency, incontinence, nocturia, hematuria, dysuria, foul smelling urine, changes to urinary stream, flank pain, fever, and or chills. Previous workup has included an in office cystoscopy with Dr. Castellanos as she has a history of microscopic hematuria in the setting of nicotine dependence cystoscopy noted debris otherwise no suspicious bladder lesions were visualized. In office urinalysis results reviewed with the patient today. No microscopic hematuria noted PVR 0ml's. She otherwise offers no other issues or concerns at this time. [facility] Medical History Cough in adult Former cigarette smoker Generalized osteoarthritis of multiple sites Elevated liver transaminase level Microhematuria Candidiasis Tubular adenoma Controlled diabetes mellitus type II without complication Diarrhea Lower thoracic back pain Pancreatic insufficiency Pelvic pain Mild intermittent asthma Depression with anxiety COVID-19 vaccination declined Decreased hearing of right ear Tinnitus of right ear Arthritis Mixed stress and urge incontinence GERD (gastroesophageal reflux disease) Type 2 diabetes mellitus with microalbuminuria, with long-term current use of insulin B12 deficiency Non-toxic multinodular goiter Dyslipidemia Obesity (BMI 30-39.9) Restless leg syndrome Vertigo Fibromyalgia Anxiety Surgical History H/O thyroidectomy Hx of BSO (bilateral salpingo-oophorectomy) Hx of laparoscopy Hx of colonoscopy History of esophagogastroduodenoscopy (EGD) Hx of appendectomy Hx of cholecystectomy Hx of section Family History Father Diabetes mellitus Heart murmur Arthritis Mother Diabetes mellitus HTN (hypertension) Glaucoma Melanoma Arthritis Sister Arthritis Social History Household Members: Family Housing: House Do you presently have visiting nurse or other home services: Yes Alcohol intake: never Patient Tobacco Use Status: Former Tobacco user Tobacco use type: Cigarette Cigarettes Per Day: 0 Years Smoked: 34 e-Cigarette/Vaping Use: Never Used Advance Directives Date on File: 06/21/22 service: No Current occupational status: unemployed Sexual orientation: Straight/Heterosexual Gender identity: Female Cognitive needs: No Hearing needs: No Vision needs: No Review of Systems Const Reports as per [facility] Eyes Reports no additional complaints ENT Reports as per [facility] Card Reports as per [facility] Resp Reports as per [facility] GI Reports as per [facility] Reports as per [facility] Musc Reports as per [facility] Neuro Reports as per [facility] Psych Reports as per [facility] Endo Reports as per [facility] Physical Exam Const General: cooperative, healthy appearing, comfortable, no acute distress, well developed, alert and awake Nutritional Appearance: overweight Orientation/consciousness: patient oriented x3 Limitations: no limitations HEENT Head: Yes normal to inspection, Yes normocephalic and Yes atraumatic Ears: hearing grossly normal bilaterally Eyes General: appearance normal, both eyes and all related structures Neck Neck: Yes normal visual inspection and Yes trachea midline Chest Chest palpation & inspection: normal inspection of the chest Resp Effort & Inspection: normal respiratory effort and able to speak in complete sentences Cardio Rate: regular rate GI Inspection: Yes normal to inspection General: Yes no CVA tenderness Back/Spine/Pelvis Back: no CVA tenderness Skin General skin exam: no rashes or lesions noted Neuro General: patient oriented x3 Extrem General: Yes normal to inspection Psych Appearance: grossly normal and well kempt Mental Status: mental status grossly normal Speech and movement: Normal speech and movement present and Clear speech present Affect: Sad affect present Attitude: cooperative Thought process: Normal thought process present Thought content: Normal thought content present Insight: Fair insight present (Psych) Judgement: Fair judgement present (Psych) Office Procedures Post Void Residual Post Residual Void Post Void Residual (PVR): 0 [id number]-[id number] Void Residual by ultrasound Results AMB Urinalysis, Automated UA Leukoctes 0 John/uL Last Edit by [employer] Curry on 07/17/24 08:47 UA Nitrite Last Edit by Noved[employer] Entertainment[employer]oline Curry on 07/17/24 08:47 UA Urobilinogen 0.2 mg/dL Last Edit by [employer] on 07/17/24 08:47 UA Protein 15 mg/dL Last Edit by [employer]oline Curry on 07/17/24 08:47 UA pH 6.0 Last Edit by [employer] Curry on 07/17/24 08:47 UA Blood 0 Jian/uL Last Edit by [employer] Curry on 07/17/24 08:47 UA Specific Lohman 1.030 Last Edit by [employer] on 07/17/24 08:47 UA Ketone Last Edit by Mahogany Curry on 07/17/24 08:47 UA Bilirubin 0 mg/dL Last Edit by Mahogany Curry on 07/17/24 08:47 UA Glucose 0 mg/dL Last Edit by Mahogany Curry on 07/17/24 08:47 Results Reviewed Results Reviewed: Laboratory Last Values Urine pH (Auto) 6.0 07/17/24 08:44 Specific Lohman (Auto) 1.030 07/17/24 08:44 Urine Protein (Auto) 15 mg/dL 07/17/24 08:44 Glucose (UA)(Auto) 0 mg/dL 07/17/24 08:44 Urine Blood (Auto) 0 Jian/uL 07/17/24 08:44 Urine Bilirubin (Auto) 0 mg/dL 07/17/24 08:44 Urine Urobilinogen (Auto) 0.2 mg/dL 07/17/24 08:44 Leukocyte Esterase (Auto) 0 John/uL 07/17/24 08:44 Assessment & Plan Assessment & Plan (1) Mixed stress and urge incontinence: Code(s): N39.46 - Mixed incontinence Category: Medical (2) Microhematuria: Code(s): R31.29 - Other microscopic hematuria Category: Medical (3) Former cigarette smoker: Code(s): Z87.891 - Personal history of nicotine dependence Category: Social Hx (4) Nocturia: Code(s): R35.1 - Nocturia Category: Medical (5) Urinary frequency: Code(s): R35.0 - Frequency of micturition Category: Medical (6) Urinary urgency: Code(s): R39.15 - Urgency of urination Category: Medical (7) Lower urinary tract symptoms: Code(s): R39.9 - Unspecified symptoms and signs involving the genitourinary system Category: Medical Plan In office urinalysis results reviewed with the patient today; as noted above. PVR 0 mL. Patient reports be happy with current voiding parameters on 25 mg of Myrbetriq; will continue; refill provided. Continue Estrace cream as discussed and prescribed; refill provided Patient currently denies any bothersome urinary issues or concerns. Discussed, educated, and stressed the importance of limiting/quitting nicotine dependence for overall health and well-being. Follow-up in 1 year with PVR; or sooner with any issues, concerns, and or questions. Orders: Orders AMB Urinalysis Automated Today Z13.9 - Encounter for screening, unspecified AMB Post Void Residual by ultrasound Today N39.46 - Mixed incontinence Medications: Refilled mirabegron ER (Myrbetriq) 25 mg PO DAILY 90 tabs 3RF 90 days N30.10 - Interstitial cystitis (chronic) without hematuria, N32.81 - Overactive bladder, R35.1 - Nocturia, R39.15 - Urgency of urination estradiol 0.01%(0.1mg/gram) vaginally 3 times a week; pea sized amount to urethra 3 times a week 42.5 grams 3RF 90 days Patient Instructions: The patient had an opportunity to ask questions regarding the treatment plan. All questions were answered. Physical exam, labs, and imaging were discussed and reviewed in detail. As well as risks, benefits, and discussion of treatment choices. No major barriers to understanding were identified. The patient expressed understanding and agreement with the above treatment plan. The patient was made aware they should contact our office by phone for worsening of their current condition, the appearance of new symptoms, or with any questions or concerns. Compliance is encouraged with any medications and follow up testing that is ordered. It is a privilege to be allowed the opportunity to participate in? your urological care.? Again, if you have any questions or concerns If you have any questions or concerns please do not hesitate to contact me. The office is [phone]. This note is constructed using voice recognition software. While every effort has been made to ensure accuracy classroom assistant errors may have been included. Yours sincerely, KYLEIGH Morin Coding Level of Care Code Est Pt Level 3 (15863) Complex EM visit Add On G2211 Diagnoses Mixed stress and urge incontinence N39.46 Microhematuria R31.29 Former cigarette smoker Z87.891 Nocturia R35.1 Urinary frequency R35.0 Urinary urgency R39.15 Lower urinary tract symptoms R39.9 CPT Codes Post Residual Void - PVR CPT Code: 45659-Xtqc Void Residual by ultrasound ([id number])
== END 2024-07-17 08:57 | disposition home or self-care (01) ==
PROVIDERS: PCP Internal Medicine; Visit Provider Nurse Practitioner Family
DX: N39.46 Mixed incontinence (principal); R31.29 Other microscopic hematuria; Z87.891 Personal history of nicotine dependence; R35.1 Nocturia; R35.0 Frequency of micturition; R39.15 Urgency of urination; R39.9 Unspecified symptoms and signs involving the genitourinary system; Z13.9 Encounter for screening, unspecified
CPT/HCPCS: 99213; G2211

== ENCOUNTER → 2024-07-17 08:05 | Outpatient (BNVA) | payer OTHER, SELFPAY | PROVIDERS: PCP Internal Medicine; Visit Provider Nurse Practitioner Family | DX: N39.46 Mixed incontinence (principal); R31.29 Other microscopic hematuria; R35.1 Nocturia; R35.0 Frequency of micturition; R39.15 Urgency of urination; R39.9 Unspecified symptoms and signs involving the genitourinary system; Z87.891 Personal history of nicotine dependence | CPT/HCPCS: 51798; 81003; 99212 ==

== ENCOUNTER 2024-08-08 11:41 | Outpatient (AMB) | payer OTHER, SELFPAY ==
[2024-08-08 12:09] VITALS: BP 102/76; PULSE 88; O2SAT 97; BMI 32.1
--- NOTE | 2024-08-08 12:09 | MHC.PC.OV ---
Vital Signs 08/08/24 12:09 Height 5 ft 4 in Weight 187 lb BMI 32.1 BP 102/76 Blood Pressure Location Lt brachial Position Sitting Pulse 88 Pulse Source Pulse Oximeter Pulse Oximetry (%) 97 Oxygen Delivery Method Room Air Intake Visit Reasons: [facility] [place] [place] ER f/u fibromyalgia Intake Note: Pt is here today for her [facility] [place] [place] [facility] f/u Allergies aspirin Allergy (Intermediate, Verified 08/08/24 12:29) rash latex [LATEX] Allergy (Mild, Verified 08/08/24 12:29) HIVES/RASH Penicillins Allergy (Mild, Verified 08/08/24 12:29) unknown amoxicillin Adverse Reaction (Intermediate, Verified 08/08/24 12:29) diarrhea Beef Containing Products Adverse Reaction (Intermediate, Verified 08/08/24 12:29) DIARRHEA/VOMITING sumatriptan [From Imitrex] Adverse Reaction (Verified 08/08/24 12:29) Palpitations [employer] Seafood Allergy (Intermediate, Uncoded 08/08/24 12:29) inflammation and swelling Medication List - Last Reconciled 08/08/24 by Mali Nova MD [incontinence/panty liners pad As directed 4 times a day as needed] [Adult rollator walker As directed NS] albuterol sulfate 90 mcg/actuation (Ventolin HFA) 2 puffs inhalation Q6H PRN albuterol sulfate 2.5 mg (3 mL) inhalation QID PRN alcohol swabs (Alcohol Prep Pads) 1 pad topical TID bisacodyl (Dulcolax (bisacodyl)) 10 mg (2 x 5 mg) PO BEDTIME blood sugar diagnostic (FreeStyle Lite Strips) test blood sugar 3 times per day blood-glucose meter (FreeStyle Lite Meter kit) As directed [body wipes As directed 6-7 per day] [cane with quad tips use as directed] cholecalciferol (vitamin D3) 25 mcg PO DAILY cholestyramine-aspartame 4 gram (Cholestyramine Light) 4 grams PO BID clonazepam 1 mg PO BID PRN diaper,brief,adult,disposable As directed up to 3 per day diclofenac sodium 1% 2 grams topical QID PRN [disposable bed pad As directed] duloxetine 30 mg PO BID estradiol 0.01%(0.1mg/gram) vaginally 3 times a week; pea sized amount to urethra 3 times a week 90 days ezetimibe 10 mg PO BEDTIME fluticasone propion-salmeterol 250-50 mcg/dose (Advair Diskus) 1 inh inhalation BID fluticasone propionate 50 mcg/actuation (Flonase Allergy Relief) 2 sprays intranasal DAILY gabapentin 400 mg PO TID 30 days ibuprofen 600 mg PO Q6H PRN insulin degludec (Tresiba FlexTouch U-100 insulin) 18 units (0.18 mL) subcut BEDTIME 90 days lancets (FreeStyle Lancets) test blood sugar 3 times per day [large pill box with am, noon, evening & night pockets As directed NS] lidocaine 5% 1 patch topical DAILY PRN [id number] 36,000-114,000- 180,000 unit (Creon) 1 cap PO QID methylcellulose (laxative) (Citrucel) 500 mg PO DAILY mirabegron ER (Myrbetriq) 25 mg PO DAILY 90 days nortriptyline 25 mg PO BEDTIME omeprazole 20 mg PO QAM ondansetron 4 mg PO DAILY PRN pen needle, diabetic (BD Vanessa 2nd Gen Pen Needle) Use to inject insulin once a day ropinirole 0.5 mg PO BEDTIME rosuvastatin 5 mg PO DAILY [Shower chair with back As directed] topiramate 100 mg PO BID Trulicity (dulaglutide) 3 mg (0.5 mL) subcut FR@1000 NS zolpidem 10 mg PO BEDTIME PRN Tobacco use date assessed: 08/08/24 Dental Screening Dental Screen Date: 08/08/24 Did you have a dental visit in the last 12 months?: Yes Did you have a dental problem in the last 6 months where you did not have access to dental care?: No Was dental information given to patient?: Patient has dentist HPI [facility] [place] [place] [facility] f/u fibromyalgia HPI Details 53-year-old lady with past medical history significant for diabetes mellitus, fibromyalgia, dyslipidemia, generalized osteoarthritis and fibromyalgia, history of nontoxic multinodular goiter, dyslipidemia, here today for follow-up. Patient has recently been seen at the ER complaining of generalized joint and muscle pain. Patient has been taking [id number]-[id number] NSAIDs and Tylenol which affords not much improvement, and has been on gabapentin 400 mg 1 tablet 3 times a day , duloxetine, and cyclobenzaprine, which she states has not been helping much lately with controlling her body aches/muscle pain. She states that she was seen by nurse practitioner at rheumatology clinic and was told that to continue with duloxetine, cyclobenzaprine and gabapentin, and as there was no inflammatory symptoms, her pain will not go away for good so increased medication will not achieve that outcome. Advised to do light exercises, apply heat and she should continue using diclofenac gel for the back of neck and other joints for OA. Patient states that none of these has helped. Complains of having had witnessed apneic spells, and excessive daytime sleepiness, frequent nighttime awakenings. She is currently on ropinirole for restless leg syndrome, which she states has helped [facility] Medical History (Updated 08/08/24 @ 12:41 by Mali Nova MD) Polyarthralgia Excessive daytime sleepiness Witnessed apneic spells Cough in adult Former cigarette smoker Generalized osteoarthritis of multiple sites Elevated liver transaminase level Microhematuria Candidiasis Tubular adenoma Controlled diabetes mellitus type II without complication Diarrhea Lower thoracic back pain Pancreatic insufficiency Pelvic pain Mild intermittent asthma Depression with anxiety COVID-19 vaccination declined Decreased hearing of right ear Tinnitus of right ear Arthritis Mixed stress and urge incontinence GERD (gastroesophageal reflux disease) Type 2 diabetes mellitus with microalbuminuria, with long-term current use of insulin B12 deficiency Non-toxic multinodular goiter Dyslipidemia Obesity (BMI 30-39.9) Restless leg syndrome Vertigo Fibromyalgia Anxiety Surgical History H/O thyroidectomy Hx of BSO (bilateral salpingo-oophorectomy) Hx of laparoscopy Hx of colonoscopy History of esophagogastroduodenoscopy (EGD) Hx of appendectomy Hx of cholecystectomy Hx of section Family History Father Diabetes mellitus Heart murmur Arthritis Mother Diabetes mellitus HTN (hypertension) Glaucoma Melanoma Arthritis Sister Arthritis Social History Household Members: Family Housing: House Do you presently have visiting nurse or other home services: Yes Alcohol intake: never Patient Tobacco Use Status: Former Tobacco user Tobacco use type: Cigarette Cigarettes Per Day: 0 Years Smoked: 34 e-Cigarette/Vaping Use: Never Used Advance Directives Date on File: 06/21/22 service: No Current occupational status: unemployed Sexual orientation: Straight/Heterosexual Gender identity: Female Cognitive needs: No Hearing needs: No Vision needs: No Questionnaire Thrive Questionnaire Date Thrive assessed: 08/08/24 I am a: Patient What is your living situation today?: I have a steady place to live Within the past 12 months, did the food you bought not last and you didn't have the money to get more?: Never true Within the past 12 months, did you worry whether your food would run out before you got money to buy more?: Never true Do you have trouble paying for medicines?: No Do you have trouble getting transportation to medical appointments?: No Do you have trouble paying your heating and electricity bill?: No Do you have trouble taking care of your child, family member or friend?: No Do you have trouble with day-to-day activities such as bathing, preparing meals, shopping, managing finances, etc.?: No Are you currently unemployed and looking for a job?: No Are you interested in more education?: No THRIVE Score: 0 AUDIT C Alcohol Use Questionnaire (AUDIT-C) 1. How often do you have a drink containing alcohol?: Never Total Score: 0 NANCY-7 AMB Questionnaire NANCY-7 Date NANCY - 7 assessed: 08/08/24 Source: Developed by Drs. Umair Drew, Amber Up, Glynn Benson and colleagues, with an educational pola from [employer]. Review of Systems Const Reports as per HPI, Denies frequent falls, Reports lethargy and Reports weight loss ENT Reports no additional complaints Card Denies chest pain, Denies irregular heart rhythm, Denies lightheadedness and Denies dyspnea Resp Denies chest congestion, Denies cough and Denies dyspnea GI Reports no additional complaints Reports no additional complaints Musc Reports as per HPI, Reports myalgias (Generalized), Reports arthralgias (Generalized) and Reports joint swelling (Fingers of both hands) Skin/Breast Denies lesions and Denies rash Neuro Denies frequent falls and Denies seizure-like activity Psych Reports no additional complaints Endo Reports no additional complaints Jacek/Lymph Reports no additional complaints Aller/Immun Reports no additional complaints Physical exam (Primary Care) Vital Signs: Last Vital Signs Pulse 88 08/08/24 12:09 BP 102/76 08/08/24 12:09 Pulse Ox 97 08/08/24 12:09 Oxygen Delivery Method Room Air 08/08/24 12:09 BMI result Body Mass Index 32.1 Tobacco/Smoking Status: Tobacco use Status Tobacco use date assessed 08/08/24 08/08/24 12:18 Patient Tobacco Use Status Former Tobacco user 08/08/24 12:18 Tobacco use type Cigarette 08/08/24 12:18 e-Cigarette/Vaping Use Never Used 08/08/24 12:18 Thrive Assessment: Date of Thrive Assessment Date Thrive assessed 08/08/24 08/08/24 12:18 Const General: no acute distress and tired appearing Nutritional Appearance: obese Orientation/consciousness: patient oriented x3 HENMT Ears: external ears normal Face and sinus: Yes face symmetric Mouth: Normal oral and palatal mucosa present, oropharynx normal and moist mucous membranes Eyes General: appearance normal, both eyes and all related structures Neck Neck: Yes full ROM, Yes no lymphadenopathy and Yes supple Resp Auscultation: clear to auscultation bilaterally Cardio Rate: regular rate Rhythm: regular rhythm Heart sounds: S1 normal heart sound present and S2 normal heart sound present GI Inspection: Yes normal to inspection Palpation (GI): Soft to palpation, nontender, no guarding and no masses General: Yes no CVA tenderness Back/Spine/Pelvis Other: Tenderness on trigger points in bilateral lower back, bilateral hips, shoulder blades, posterior neck, and both knees Back: no CVA tenderness Skin General skin exam: no rashes or lesions noted Neuro General: patient oriented x3 Cognition (Neuro): normal cognition Extrem General: Yes full ROM, Yes no joint enlargement, Yes no clubbing, cyanosis or edema and Yes no pedal edema Psych Appearance: grossly normal and well kempt Mental Status: mental status grossly normal Speech and movement: Normal speech and movement present Affect: normal affect Results Reviewed Results Reviewed: Name: Demi Lundberg Age/Sex: 53/F : 1970 Unit#: [id number] Attend Dr: Ozzy Garza MD Re07/13/24 Status: DEP [facility]: SPEC : [id number] COLBY: 07/13/24 STATUS: COMP REQ : [id number] RECD: 07/13/24 [facility] DR: Ozzy Garza MD COMP: 07/13/24 ENTERED: 07/13/[address] [facility] [address]: Mali Nova MD [facility] ED Physician ORDERED: CMP Test Result Flag Reference Sodium 143 135-145 mmol/L Potassium 3.7 3.3-5.1 mmol/L CL 112 H 96-108 mmol/L CO2 22 22-29 mmol/L Gap 13 12-20 BUN 13 9-16 mg/dL Creat 0.81 0.5-1.4 mg/dL Estimated CrCl 87.1 Provided height and weight: 162.56 cm, 89.811 kg. eGFR (calculated from the MDRD study equation) and eCrCl (calculated from the Cockcroft-Gault equation) are based on different parameters and may not yield comparable results. If eCrCl result is absurd, please check patient's height/weight. eGFR > 60 Chronic Kidney Disease: Estimated GFR < 60 mL/min/1.73m2 Severe Kidney Disease: Estimated GFR < 15 mL/min/1.73m2 Glucose, Random 143 H 60-115 mg/dL CA 10.0 8.4-10.2 mg/dL Total Bili 0.5 0.0-1.0 mg/dL AST (GOT) 40 H 5-31 U/L ALT (GPT) 33 H 0-31 U/L Protein, Total 6.4 L 6.5-8.0 g/dL Alb 4.2 3.5-5.0 g/dL Alk Phos 125 H 39-117 U/L Laboratory Tests 11/03/23 06:19 Hemoglobin A1c % 5.3 Coding Level of Care Code Est Pt Level 4 (05911) Complex EM visit Add On G2211 Diagnoses Witnessed apneic spells R06.81 Excessive daytime sleepiness G47.19 Polyarthralgia M25.50 Obesity (BMI 30-39.9) E66.9 Dyslipidemia E78.5 Controlled type 2 diabetes mellitus without complication, with long-term current use of insulin E11.9; Z79.4 Diabetes mellitus termite control 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 insulin use: with termite control 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 use Assessment & Plan Assessment & Plan (1) Witnessed apneic spells: Code(s): R06.81 - Apnea, not elsewhere classified Category: Medical (2) Excessive daytime sleepiness: Code(s): G47.19 - Other hypersomnia Category: Medical (3) Polyarthralgia: Code(s): M25.50 - Pain in unspecified joint Category: Medical (4) Obesity (BMI 30-39.9): Code(s): E66.9 - Obesity, unspecified Category: Medical (5) Dyslipidemia: Code(s): E78.5 - Hyperlipidemia, unspecified Category: Medical (6) Controlled diabetes mellitus type II without complication: Code(s): E11.9 - Type 2 diabetes mellitus without complications Category: Medical Qualifiers: Diabetes mellitus termite control 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 insulin use: with termite control 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 use Qualified Code(s): E11.9 - Type 2 diabetes mellitus without complications; 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 Plan Fasting labs ordered to check vitamin-D, CBC, rheumatoid factor, comprehensive metabolic panel, lipid panel, hemoglobin A1c urine for microalbumin, sed rate and CRP -continued on present treatment with gabapentin, lidocaine patch, duloxetine , continued on ezetimibe and rosuvastatin for her lipids and Trulicity for her diabetes - referred back to rheumatology clinic for further evaluation management, patient insisting on seeing clothes wringer for further evaluation management of her fibromyalgia and polyarthralgia -referred to sleep clinic for evaluation of disturbed sleep and witnessed apneic spells, rule out obstructive sleep apnea, advised to continue with weight loss Orders: Orders Vitamin D 25-OH Total 08/08/24 E11.9 - Type 2 diabetes mellitus without complications, E66.9 - Obesity, unspecified, E78.5 - Hyperlipidemia, unspecified, M25.50 - Pain in unspecified joint, 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 Complete Blood Count Auto Diff 08/08/24 E11.9 - Type 2 diabetes mellitus without complications, E66.9 - Obesity, unspecified, E78.5 - Hyperlipidemia, unspecified, M25.50 - Pain in unspecified joint, 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 Rheumatoid Factor 08/08/24 E11.9 - Type 2 diabetes mellitus without complications, E66.9 - Obesity, unspecified, E78.5 - Hyperlipidemia, unspecified, M25.50 - Pain in unspecified joint, 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 Lipid Panel 08/08/24 E11.9 - Type 2 diabetes mellitus without complications, E66.9 - Obesity, unspecified, E78.5 - Hyperlipidemia, unspecified, M25.50 - Pain in unspecified joint, Z79.4 - [facility] (current) use of insulin Hemoglobin A1c 08/08/24 E11.9 - Type 2 diabetes mellitus without complications, E66.9 - Obesity, unspecified, E78.5 - Hyperlipidemia, unspecified, M25.50 - Pain in unspecified joint, 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 Panel Fast 08/08/24 E11.9 - Type 2 diabetes mellitus without complications, E66.9 - Obesity, unspecified, E78.5 - Hyperlipidemia, unspecified, M25.50 - Pain in unspecified joint, Z79.4 - [facility] (current) use of insulin Erythrocyte Sedimentation Rate 08/08/24 E11.9 - Type 2 diabetes mellitus without complications, E66.9 - Obesity, unspecified, E78.5 - Hyperlipidemia, unspecified, M25.50 - Pain in unspecified joint, 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 CRP High Sensitivity 08/08/24 E11.9 - Type 2 diabetes mellitus without complications, E66.9 - Obesity, unspecified, E78.5 - Hyperlipidemia, unspecified, M25.50 - Pain in unspecified joint, 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
== END 2024-08-08 12:48 | disposition home or self-care (01) ==
PROVIDERS: PCP Internal Medicine; Visit Provider Internal Medicine
DX: R06.81 Apnea, not elsewhere classified (principal); G47.19 Other hypersomnia; M25.50 Pain in unspecified joint; E66.9 Obesity, unspecified; E78.5 Hyperlipidemia, unspecified; E11.9 Type 2 diabetes mellitus without complications; Z79.4 Long term (current) use of insulin; Z68.32 Body mass index [BMI] 32.0-32.9, adult

== ENCOUNTER → 2024-08-08 11:41 | Outpatient (BNVA) | payer OTHER, SELFPAY | PROVIDERS: PCP Internal Medicine; Visit Provider Internal Medicine | DX: M79.7 Fibromyalgia (principal); E11.9 Type 2 diabetes mellitus without complications; E78.5 Hyperlipidemia, unspecified; R06.81 Apnea, not elsewhere classified; G47.19 Other hypersomnia; M25.50 Pain in unspecified joint; E66.9 Obesity, unspecified; Z79.899 Other long term (current) drug therapy; Z79.4 Long term (current) use of insulin | CPT/HCPCS: 96127; 99212 ==

== ENCOUNTER 2024-08-16 06:03 | Outpatient (REF) | payer OTHER, SELFPAY ==
[2024-08-16 06:20] LABS: MANUAL DIFF FLAG NO
[2024-08-16 07:33] LABS: Basophils Absolute Auto 0.1 X10*3/uL (0.0-0.2); Basophils Percent Auto 0.9 % (0-2); Eosinophils Absolute Auto 0.1 X10*3/uL (0.0-0.4); Eosinophils Percent Auto 1.3 % (0-4); Hematocrit 39.5 % (37.0-47.0); Hemoglobin 13.5 g/dl (12.0-16.0); Imm Gran Abs Auto 0.01 X10*3/uL (0.00-0.03); Imm Gran Pct Auto 0.2 % (0.0-0.4); Lymphocytes Absolute Auto 1.8 X10*3/uL (1.2-4.9); Lymphocytes Percent Auto 33.5 % (20-40); Mean Corpuscular HGB Conc 34.2 g/dl (31.0-35.0); Mean Corpuscular Hemoglobin 31.6 pg (27.0-33.0); Mean Corpuscular Volume 92.5 fL (80.0-98.0); Mean Platelet Volume 10.5 fL (9.4-12.3); Monocytes Absolute Auto 0.3 X10*3/uL (0.1-1.2); Monocytes Percent Auto 6.2 % (2-11); Neutrophils Absolute Auto 3.2 x10*3/uL (2.0-8.3); Neutrophils Percent Auto 57.9 % (45-73); Platelet Count 232 X10*3/uL (160-400); Red Blood Count 4.27 X10*6/uL (4.20-5.50); Red Cell Distribution Width 12.4 % (11.0-16.0); White Blood Count 5.5 X10*3/uL (4.8-10.8)
[2024-08-16 07:35] LABS: Estimated Average Glucose 117 mg/dL; Hemoglobin A1C 135.4873 umol/L; Hemoglobin A1c % 5.7 % (<6.0); Total Hemoglobin (HGBA1C) 3466.1781 umol/L
[2024-08-16 08:00] LABS: Rheumatoid Factor < 13.0 IU/mL (<15.0)
[2024-08-16 08:09] LABS: Alanine Aminotransferase 29 U/L (0-31); Albumin Level 4.2 g/dL (3.5-5.0); Alkaline Phosphatase 113 U/L (39-117); Anion Gap 9 (12-20); Aspartate Amino Transferase 31 U/L (5-31); Bilirubin Total 0.4 mg/dL (0.0-1.0); Blood Urea Nitrogen 16 mg/dL (9-16); Calcium 9.8 mg/dL (8.4-10.2); Carbon Dioxide 25 mmol/L (22-29); Chloride 113 mmol/L (96-108); Cholesterol 112 mg/dL (<200); Estimated Glomerular Filt Rate > 60; Glucose Fasting 113 mg/dL (60-99); HDL Cholesterol 42 mg/dL (>40); LDL Cholesterol Calculated 52 mg/dL (<100); Potassium 4.1 mmol/L (3.3-5.1); Sodium 143 mmol/L (135-145); Total Protein 6.5 g/dL (6.5-8.0); Triglycerides 91 mg/dL (<150)
[2024-08-16 08:28] LABS: Vitamin D 25-OH Total 38.1 ng/mL (>30)
[2024-08-16 08:38] LABS: Creatinine Urine 80.99 mg/dL; Microalbumin Urine < 5.0 mg/L
[2024-08-16 09:36] LABS: Erythrocyte Sedimentation Rate 4 MM/HR (0-20)
[2024-08-17 09:13] LABS: CRP High Sensitivity 0.8 mg/L
== END 2024-08-16 06:04 | disposition home or self-care (01) ==
LOC: HO.LAB 06:03
PROVIDERS: PCP Internal Medicine; Visit Provider Internal Medicine
DX: E66.9 Obesity, unspecified (principal); E78.5 Hyperlipidemia, unspecified; E11.9 Type 2 diabetes mellitus without complications; Z79.4 Long term (current) use of insulin; M25.50 Pain in unspecified joint
CPT/HCPCS: 36415; 80053; 80061; 82043; 82306; 82570; 83036; 85025; 85652; 86141; 86431

== ENCOUNTER 2024-08-29 11:20 | Outpatient (AMB) | payer OTHER, SELFPAY ==
[2024-08-29 11:23] VITALS: BP 92/60; PULSE 87; RESP 15; TEMP 36.6; O2SAT 98; BMI 32.3
--- NOTE | 2024-08-29 11:23 | MHC.PC.OV ---
Vital Signs 08/29/24 11:23 Height 5 ft 4 in Weight 188 lb BMI 32.3 BP 92/60 Blood Pressure Location Lt brachial Position Sitting Respiration 15 Pulse 87 Pulse Source Pulse Oximeter Temp 97.8 F Temp Source Oral Pulse Oximetry (%) 98 Oxygen Delivery Method Room Air Intake Visit Reasons: Strong sharp feet pain , can barley walk Intake Note: Pt is here today c/o bilateral knee pain going to both feet: No injury noted Allergies aspirin Allergy (Intermediate, Verified 08/29/24 11:45) rash latex [LATEX] Allergy (Mild, Verified 08/29/24 11:45) HIVES/RASH Penicillins Allergy (Mild, Verified 08/29/24 11:45) unknown amoxicillin Adverse Reaction (Intermediate, Verified 08/29/24 11:45) diarrhea Beef Containing Products Adverse Reaction (Intermediate, Verified 08/29/24 11:45) DIARRHEA/VOMITING sumatriptan [From Imitrex] Adverse Reaction (Verified 08/29/24 11:45) Palpitations Red Meats And Seafood Allergy (Intermediate, Uncoded 08/29/24 11:45) inflammation and swelling Medication List - Last Reconciled 08/29/24 by Mali Nova MD [incontinence/panty liners pad As directed 4 times a day as needed] [Adult rollator walker As directed NS] albuterol sulfate 90 mcg/actuation (Ventolin HFA) 2 puffs inhalation Q6H PRN albuterol sulfate 2.5 mg (3 mL) inhalation QID PRN alcohol swabs (Alcohol Prep Pads) 1 pad topical TID bisacodyl (Dulcolax (bisacodyl)) 10 mg (2 x 5 mg) PO BEDTIME blood sugar diagnostic (FreeStyle Lite Strips) test blood sugar 3 times per day blood-glucose meter (FreeStyle Lite Meter kit) As directed [body wipes As directed 6-7 per day] [cane with quad tips use as directed] cholecalciferol (vitamin D3) 25 mcg PO DAILY cholestyramine-aspartame 4 gram (Cholestyramine Light) 4 grams PO BID clonazepam 1 mg PO BID PRN diaper,brief,adult,disposable As directed up to 3 per day diclofenac sodium 1% 2 grams topical QID PRN [disposable bed pad As directed] duloxetine 30 mg PO BID estradiol 0.01%(0.1mg/gram) vaginally 3 times a week; pea sized amount to urethra 3 times a week 90 days ezetimibe 10 mg PO BEDTIME fluticasone propion-salmeterol 250-50 mcg/dose (Advair Diskus) 1 inh inhalation BID fluticasone propionate 50 mcg/actuation (Flonase Allergy Relief) 2 sprays intranasal DAILY gabapentin 400 mg PO TID 30 days ibuprofen 600 mg PO Q6H PRN insulin degludec (Tresiba FlexTouch U-100 insulin) 18 units (0.18 mL) subcut BEDTIME 90 days lancets (FreeStyle Lancets) test blood sugar 3 times per day [large pill box with am, noon, evening & night pockets As directed NS] lidocaine 5% 1 patch topical DAILY PRN apjiqb-twvfkyay-namlcsc 36,000-114,000- 180,000 unit (Creon) 1 cap PO QID methylcellulose (laxative) (Citrucel) 500 mg PO DAILY mirabegron ER (Myrbetriq) 25 mg PO DAILY 90 days nortriptyline 25 mg PO BEDTIME omeprazole 20 mg PO QAM ondansetron 4 mg PO DAILY PRN pen needle, diabetic (BD Vanessa 2nd Gen Pen Needle) Use to inject insulin once a day ropinirole 0.5 mg PO BEDTIME rosuvastatin 5 mg PO DAILY [Shower chair with back As directed] topiramate 100 mg PO BID Trulicity (dulaglutide) 3 mg (0.5 mL) subcut FR@1000 NS zolpidem 10 mg PO BEDTIME PRN Tobacco use date assessed: 08/29/24 Dental Screening Dental Screen Date: 08/29/24 Did you have a dental visit in the last 12 months?: No Did you have a dental problem in the last 6 months where you did not have access to dental care?: No Was dental information given to patient?: Patient has dentist HPI Strong sharp feet pain , can barley walk HPI Details 53-year-old lady with history of diabetes mellitus type 2, and fibromyalgia, here today complaining of generalized body aches , and bilateral knee pain left more than the right, radiating down both feet. Patient states that she has difficulty walking due to pain in both feet. She is currently taking gabapentin 400 mg 3 times a day together with duloxetine 30 mg twice a day, which she states has stopped helping with pain relief. No history of trauma or any strenuous exertion. She had recent fasting labs done which showed normal CBC electrolytes renal function lipids, vitamin-D level and hemoglobin A1c is at 5.7%. [facility] Medical History (Updated 09/02/24 @ 15:39 by Mali Nova MD) Bilateral chronic knee pain Polyarthralgia Excessive daytime sleepiness Witnessed apneic spells Cough in adult Former cigarette smoker Generalized osteoarthritis of multiple sites Elevated liver transaminase level Microhematuria Candidiasis Tubular adenoma Controlled diabetes mellitus type II without complication Diarrhea Lower thoracic back pain Pancreatic insufficiency Pelvic pain Mild intermittent asthma Depression with anxiety COVID-19 vaccination declined Decreased hearing of right ear Tinnitus of right ear Arthritis Mixed stress and urge incontinence GERD (gastroesophageal reflux disease) Type 2 diabetes mellitus with microalbuminuria, with long-term current use of insulin B12 deficiency Non-toxic multinodular goiter Dyslipidemia Obesity (BMI 30-39.9) Restless leg syndrome Vertigo Fibromyalgia Anxiety Surgical History H/O thyroidectomy Hx of BSO (bilateral salpingo-oophorectomy) Hx of laparoscopy Hx of colonoscopy History of esophagogastroduodenoscopy (EGD) Hx of appendectomy Hx of cholecystectomy Hx of section Family History Father Diabetes mellitus Heart murmur Arthritis Mother Diabetes mellitus HTN (hypertension) Glaucoma Melanoma Arthritis Sister Arthritis Social History Household Members: Family Housing: House Do you presently have visiting nurse or other home services: Yes Alcohol intake: never Patient Tobacco Use Status: Former Tobacco user Tobacco use type: Cigarette Cigarettes Per Day: 0 Years Smoked: 34 e-Cigarette/Vaping Use: Never Used Advance Directives Date on File: 06/21/22 service: No Current occupational status: unemployed Sexual orientation: Straight/Heterosexual Gender identity: Female Cognitive needs: No Hearing needs: No Vision needs: No Questionnaire PHQ-9 Over the last 2 weeks, how often have you been bothered by any of the following problems? 1. Little interest or pleasure in doing things: several days 2. Feeling down, depressed, or hopeless: several days 3. Trouble falling or staying asleep, or sleeping too much: several days 4. Feeling tired or having little energy: several days 5. Poor appetite or overeating: several days 6. Feeling bad about yourself - or that you are a failure or have let yourself or your family down: several days 7. Trouble concentrating on things, such as reading the newspaper or watching television: several days 8. Moving or speaking so slowly that other people could have noticed. Or the opposite - being so fidgety or restless that you have been moving around a lot more than usual: several days 9. Thoughts that you would be better off or of hurting yourself in some way: not at all Total score: 8 Depression Screening Interpretation: Positive (Currently followed by Sweta Galloway NP at [facility]) Depression Screening Follow-up: Existing condition, In treatment and Community Mental Health Worker F/U Depression Screening Done: Yes Source: Developed by Drs. Umair Drew, Amber Up, Glynn Benson and colleagues, with an educational pola from [employer] Thrive Questionnaire Date Thrive assessed: 08/24/24 I am a: Patient What is your living situation today?: I have a steady place to live Within the past 12 months, did the food you bought not last and you didn't have the money to get more?: Never true Within the past 12 months, did you worry whether your food would run out before you got money to buy more?: Never true Do you have trouble paying for medicines?: No Do you have trouble getting transportation to medical appointments?: No Do you have trouble paying your heating and electricity bill?: No Do you have trouble taking care of your child, family member or friend?: No Do you have trouble with day-to-day activities such as bathing, preparing meals, shopping, managing finances, etc.?: Yes Are you currently unemployed and looking for a job?: Yes Are you interested in more education?: No Please select the resources that you would like help with: Transportation Currently or been in a relationship where the following occur: I choose not to answer THRIVE Score: 0 AUDIT C Alcohol Use Questionnaire (AUDIT-C) 1. How often do you have a drink containing alcohol?: Never 3. How often do you have six or more drinks on one occasion?: Never Total Score: 0 NANCY-7 AMB Questionnaire NANCY-7 Date NANCY - 7 assessed: 08/08/24 Feeling nervous, anxious, or on edge: 2 = More than half the days Not being able to stop or control worryin = Several days Worrying too much about different things: 1 = Several days Trouble relaxin = Several days Being so restless that it is hard to sit still: 2 = More than half the days Becoming easily annoyed or irritable: 1 = Several days Feeling afraid as if something awful might happen: 1 = Several days Total NANCY-7 score (0-4 normal; 5-9 mild; 10-14 moderate; 15-21 severe): 9 Source: Developed by Drs. Umair Drew, Amber Up, Glynn Benson and colleagues, with an educational pola from [employer] NANCY-7 Assessment Billing NANCY-7 Assessment Tool: NANCY-7 Assessment 86536 Review of Systems Const All systems reviewed & are unremarkable except as noted in HPI and below Physical exam (Primary Care) Vital Signs: Last Vital Signs Temp 97.8 F 08/29/24 11:23 Pulse 87 08/29/24 11:23 Resp 15 08/29/24 11:23 BP 92/60 08/29/24 11:23 Pulse Ox 98 08/29/24 11:23 Oxygen Delivery Method Room Air 08/29/24 11:23 BMI result Body Mass Index 32.3 Tobacco/Smoking Status: Tobacco use Status Tobacco use date assessed 08/29/24 08/29/24 11:30 Patient Tobacco Use Status Former Tobacco user 08/29/24 11:30 Tobacco use type Cigarette 08/29/24 11:30 e-Cigarette/Vaping Use Never Used 08/29/24 11:30 PHQ-9: PHQ-9 Score PHQ-9: Total score 8 09/02/24 14:35 Depression Screening Interpretation: Positive (Currently followed by Sweta Galloway NP at [facility]) Depression Screening Follow-up: Existing condition, In treatment and Community Mental Health Worker F/U Thrive Assessment: Date of Thrive Assessment Date Thrive assessed 08/24/24 08/29/24 11:30 Currently or been in a relationship where the following occur: I choose not to answer Const Other: Proposal Analyst present General: no acute distress and tired appearing Nutritional Appearance: obese Orientation/consciousness: patient oriented x3 HENMT Face and sinus: Yes face symmetric Mouth: Normal oral and palatal mucosa present, oropharynx normal and moist mucous membranes Eyes General: appearance normal, both eyes and all related structures Neck Neck: Yes full ROM, Yes no lymphadenopathy and Yes supple Resp Auscultation: clear to auscultation bilaterally Cardio Rate: regular rate Rhythm: regular rhythm Heart sounds: S1 normal heart sound present and S2 normal heart sound present GI Inspection: Yes normal to inspection Palpation (GI): Soft to palpation, nontender, no guarding and no masses General: Yes no CVA tenderness Back/Spine/Pelvis Other: Tenderness on trigger points in bilateral lower back, bilateral hips, shoulder blades, posterior neck, and both knees Back: no CVA tenderness Skin General skin exam: no rashes or lesions noted Neuro General: patient oriented x3 Cognition (Neuro): normal cognition Extrem General: Yes full ROM, Yes no joint enlargement, Yes no clubbing, cyanosis or edema, Yes no pedal edema and Yes no calf tenderness Results Reviewed Results Reviewed: Name: Demi Lundberg Age/Sex: 53/F : 1970 Unit#: [id number] Attend Dr: Mali Nova MD Re08/16/24 Status: DEP REF Location: [facility] Disch: SPEC : [id number] COLBY: 08/16/24 STATUS: COMP REQ : [id number] RECD: 08/16/[address]: Mali Nova MD COMP: 08/16/24 ENTERED: 08/16/[address]: ORDERED: CBC Auto Diff Test Result Flag Reference WBC 5.5 4.8-10.8 X10*3/uL RBC 4.27 4.20-5.50 X10*6/uL HGB 13.5 12.0-16.0 g/dl HCT 39.5 37.0-47.0 % MCV 92.5 80.0-98.0 fL MCH 31.6 27.0-33.0 pg MCHC 34.2 31.0-35.0 g/dl RDW 12.4 11.0-16.0 % PLT 232 160-400 X10*3/uL MPV 10.5 9.4-12.3 fL Neut Pct Auto 57.9 45-73 % ImGran Pct Auto 0.2 0.0-0.4 % Lymp Pct Auto 33.5 20-40 % Snyder Pct Auto 6.2 2-11 % Eos Pct Auto 1.3 0-4 % Baso Pct Auto 0.9 0-2 % NRBC Pct Auto 0.0 0.0-0.2 /100WBC ANC Neut Abs # 3.2 2.0-8.3 x10*3/uL ImGran Abs Auto 0.01 0.00-0.03 X10*3/uL Lymph Abs Auto 1.8 1.2-4.9 X10*3/uL Snyder Abs Auto 0.3 0.1-1.2 X10*3/uL Eos Abs Auto 0.1 0.0-0.4 X10*3/uL Baso Abs Auto 0.1 0.0-0.2 X10*3/uL NRBC Abs Auto 0.000 0.0-0.012 X10*3/uL Name: Demi Lundberg Age/Sex: 53/F : 1970 Unit#: [id number] Attend Dr: Mali Nova MD Re08/16/24 Status: DEP REF Location: [facility] Disch: SPEC : [id number] COLBY: 08/16/24 STATUS: COMP REQ : [id number] RECD: 08/16/[address]: Mali Nova MD COMP: 08/16/24 ENTERED: 08/16/[address]: ORDERED: CMP Fast, Lipid Panel, Vitamin D 25-OH Test Result Flag Reference Sodium 143 135-145 mmol/L Potassium 4.1 3.3-5.1 mmol/L CL 113 H 96-108 mmol/L CO2 25 22-29 mmol/L Gap 9 L 12-20 BUN 16 9-16 mg/dL Creat 0.80 0.5-1.4 mg/dL eGFR > 60 Chronic Kidney Disease: Estimated GFR < 60 mL/min/1.73m2 Severe Kidney Disease: Estimated GFR < 15 mL/min/1.73m2 FBS 113 H 60-99 mg/dL A fasting glucose from 100-125 mg/dl is considered impaired (pre-diabetes). CA 9.8 8.4-10.2 mg/dL Total Bili 0.4 0.0-1.0 mg/dL AST (GOT) 31 5-31 U/L ALT (GPT) 29 0-31 U/L Protein, Total 6.5 6.5-8.0 g/dL Alb 4.2 3.5-5.0 g/dL Triglyceride 91 <150 mg/dL Desirable Triglyceride: less than 150 mg/dL Borderline High Triglyceride 150-199 mg/dL High Triglyceride: 200-499 mg/dL Very High Triglyceride: greater than or equal to 5OO mg/dL Cholesterol 112 <200 mg/dL Desirable Cholesterol: less than 200 mg/dL Borderline High Cholesterol: 200-239 mg/dL High Cholesterol: greater than 239 mg/dL LDL Calculated 52 <100 mg/dL Desirable LDL: less than 100 mg/dL Near Optimal/Above Optimal LDL: 110-129 mg/dL Borderline High LDL: 130-159 mg/dL High LDL: 160-189 mg/dL Very High LDL: greater than or equal to 190 mg/dL HDL 42 >40 mg/dL Desirable HDL: greater than 40 mg/dL Note: This HDL assay may give artificially low results in patients with liver disease. Alk Phos 113 39-117 U/L Vit D 25-OH Tot 38.1 >30 ng/mL Health Based Reference Values* < 20 ng/mL Deficient 20-30 ng/mL Insufficient > 30 ng/mL Sufficient *Audelia ALFREDO. N Engl J Med. 2007;[id number] Laboratory Tests 08/16/24 06:18 Estimat Average Glucose 117 Hemoglobin A1c % 5.7 Coding Level of Care Code Est Pt Level 4 (40167) Diagnoses Fibromyalgia M79.7 Bilateral chronic knee pain M25.561; M25.562; G89.29 Additional Codes NANCY-7 Assessment Billing - NANCY-7 Assessment Tool: NANCY-7 Assessment 45787 ([id number]) Assessment & Plan Assessment & Plan (1) Fibromyalgia: Code(s): M79.7 - Fibromyalgia Category: Medical Plan: Will taper off gabapentin and started on Savella (Milnacipran ) , start taking 12.5 mg once a day for the 1st 3 days, then increase dose to 12.5 mg twice a day on days 4 to 7, , then increase dose to 25 mg twice a day afterwards. Gradually taper off gabapentin at the same time as directed. Continue with duloxetine. Your back for follow-up in 4 weeks after starting Savella. Recommended a continued application of moist heat to affected areas or Salonpas patches. (2) Bilateral chronic knee pain: Code(s): M25.561 - Pain in right knee; M25.562 - Pain in left knee; G89.29 - Other chronic pain Category: Medical Plan: X-ray of both knees ordered Orders: Orders XR lumbar spine 6V w bending 08/29/24 G89.29 - Other chronic pain, M25.561 - Pain in right knee, M25.562 - Pain in left knee XR knee LT 4V 08/29/24 G89.29 - Other chronic pain, M25.561 - Pain in right knee, M25.562 - Pain in left knee XR knee RT 4V 08/29/24 G89.29 - Other chronic pain, M25.561 - Pain in right knee, M25.562 - Pain in left knee Medications: New milnacipran (Savella) Take 12.5 mg once a day for the 1st 3 days, then increase dose to 12.5 mg twice a day on days 4 to 7, , then increase dose to 25 mg twice a day after 12.5 mg PO BID 60 tabs 0RF 30 days
== END 2024-08-29 13:10 | disposition home or self-care (01) ==
PROVIDERS: PCP Internal Medicine; Visit Provider Internal Medicine
DX: M79.7 Fibromyalgia (principal); M25.561 Pain in right knee; M25.562 Pain in left knee; G89.29 Other chronic pain

== ENCOUNTER 2024-08-29 11:20 | Outpatient (REF) | payer OTHER, SELFPAY ==
--- NOTE | ~2024-08-29 | XR_ITS ---
CLINICAL HISTORY: M25.561 - Pain in right knee 4 view right knee Comparison: None Findings: Bones intact. No dislocations. No significant arthritic change or erosions. No joint effusion. No radiopaque foreign body. IMPRESSION: 1. No acute findings. This document has been electronically signed by: Armando Vazquez MD on 08/31/2024 08:22:28
--- NOTE | ~2024-08-29 | XR_ITS ---
CLINICAL HISTORY: M25.561 - Pain in right knee 4 view left knee Comparison: None Findings: No fractures or dislocations. There is loss of height of the medial compartment possibly related to osteoarthritis. No joint effusion. No radiopaque foreign body. IMPRESSION: 1. No acute findings. This document has been electronically signed by: Armando Vazquez MD on 08/31/2024 08:26:37
== END 2024-08-29 11:21 | disposition home or self-care (01) ==
LOC: HO.HMGCX 11:20
PROVIDERS: PCP Internal Medicine; Visit Provider Internal Medicine
DX: M79.7 Fibromyalgia (principal); M25.561 Pain in right knee; M25.562 Pain in left knee; G89.29 Other chronic pain; E11.9 Type 2 diabetes mellitus without complications
CPT/HCPCS: 73564; 96127; 99212

== ENCOUNTER → 2024-08-29 12:23 | Outpatient (BNV) | payer OTHER, SELFPAY | PROVIDERS: PCP Internal Medicine; Visit Provider Specialist | DX: M25.562 Pain in left knee (principal); M25.561 Pain in right knee | CPT/HCPCS: 73564 ==

== ENCOUNTER 2024-09-04 07:58 | Outpatient (REF) | payer OTHER, SELFPAY ==
[2024-09-04 18:50] LABS: Iron 85 mcg/dL (30-160); Percent Iron Saturation 24 % (15-50); Total Iron Binding Capacity 347 mcg/dL (228-428); Unsaturated Iron Binding 262 ug/dL
[2024-09-04 18:56] LABS: Ferritin 22 ng/mL (10-250); TSH reflex Free T4 0.83 uIU/mL (0.32-4.0)
[2024-09-04 19:14] LABS: Folate 8.3 ng/mL (> or = 4.0); Vitamin B12 286 pg/mL (200-900)
[2024-09-07 22:32] LABS: Methylmalonic Acid 137 nmol/L (55-335)
== END 2024-09-04 07:59 | disposition home or self-care (01) ==
LOC: HO.HKASLDS 07:58
PROVIDERS: PCP Internal Medicine; Visit Provider Physician Assistant Medical
DX: Z13.89 Encounter for screening for other disorder (principal)
CPT/HCPCS: 36415; 82607; 82728; 82746; 83540; 83921; 84443; 99202

== ENCOUNTER 2024-09-04 07:58 | Outpatient (AMB) | payer OTHER, SELFPAY ==
--- NOTE | 2024-09-04 08:03 | MHC.OFFVIS ---
Vital Signs 09/04/24 08:04 Height 5 ft 4 in Weight 190 lb BMI 32.6 Intake Visit Reasons: INP-Apnea Intake Note: Patient presents for Apnea. patient was seen in ER for severe fibromyalgia. she was informed by nurses that her oxygen levels droped alot when she was sleeping. pcp wants her to have an in lab sleep study. Ship Painter Helper Required: Yes Ship Painter Helper Name: ronny ham Allergies aspirin Allergy (Intermediate, Verified 09/04/24 08:08) rash latex [LATEX] Allergy (Mild, Verified 09/04/24 08:08) HIVES/RASH Penicillins Allergy (Mild, Verified 09/04/24 08:08) unknown amoxicillin Adverse Reaction (Intermediate, Verified 09/04/24 08:08) diarrhea Beef Containing Products Adverse Reaction (Intermediate, Verified 09/04/24 08:08) DIARRHEA/VOMITING sumatriptan [From Imitrex] Adverse Reaction (Verified 09/04/24 08:08) Palpitations Red Meats And Seafood Allergy (Intermediate, Uncoded 09/04/24 08:08) inflammation and swelling HPI Comments Details: 53 year old female is here for sleep apnea evaluation per her PCP. She was in the hospital one month ago for pain d/t fibromyalgia, and had a complete work up. When she sleeps she stops breathing and snores loudly. She was told to do a PSG by her doctor. She is taking trazadone and ambien however still unable to fall asleep. She goes to bed at 8pm and wakes up at 1am then at 2am and is awake for the entire day. She has difficulty staying asleep, she watches tv for 4 hours at night and feels exhausted the next day. She focuses on arts and crafts with butterflies all night when unable to fall asleep. Her memory is poor she forgets to take medications on time, misses her appointments and needs constant reminders. She has vertigo, loud noises irritate her and she becomes over stimulated. She has daily migraines lasting 4 days a week, occipital to parietal and radiating to the frontal area 10/10 pain with nausea vomitting, photophobia, phonophobia, she takes topomax 100mg PO BID and that helps ease the pain. She has a BUILDING REPAIR MAINTENANCE SUPERVISOR daily for 2 hours who helps her with laundry, cleaning, cooking. She is able to complete her ADLs, with some help. Her mood is stable, she has bad days and stays home when her mood is irritable due to the pain. She denies falls, does not smoke cigarettes, MJ, or take edibles. She never drinks alcohol. [facility] Medical History Bilateral chronic knee pain Polyarthralgia Excessive daytime sleepiness Witnessed apneic spells Cough in adult Former cigarette smoker Generalized osteoarthritis of multiple sites Elevated liver transaminase level Microhematuria Candidiasis Tubular adenoma Controlled diabetes mellitus type II without complication Diarrhea Lower thoracic back pain Pancreatic insufficiency Pelvic pain Mild intermittent asthma Depression with anxiety COVID-19 vaccination declined Decreased hearing of right ear Tinnitus of right ear Arthritis Mixed stress and urge incontinence GERD (gastroesophageal reflux disease) Type 2 diabetes mellitus with microalbuminuria, with long-term current use of insulin B12 deficiency Non-toxic multinodular goiter Dyslipidemia Obesity (BMI 30-39.9) Restless leg syndrome Vertigo Fibromyalgia Anxiety Surgical History H/O thyroidectomy Hx of BSO (bilateral salpingo-oophorectomy) Hx of laparoscopy Hx of colonoscopy History of esophagogastroduodenoscopy (EGD) Hx of appendectomy Hx of cholecystectomy Hx of section Family History Father Diabetes mellitus Heart murmur Arthritis Mother Diabetes mellitus HTN (hypertension) Glaucoma Melanoma Arthritis Sister Arthritis Social History Household Members: Family Housing: House Do you presently have visiting nurse or other home services: Yes Alcohol intake: never Patient Tobacco Use Status: Former Tobacco user Tobacco use type: Cigarette Cigarettes Per Day: 0 Years Smoked: 34 e-Cigarette/Vaping Use: Never Used Advance Directives Date on File: 06/21/22 service: No Current occupational status: unemployed Sexual orientation: Straight/Heterosexual Gender identity: Female Cognitive needs: No Hearing needs: No Vision needs: No Review of Systems Const All systems reviewed & are unremarkable except as noted in HPI and below Physical Exam Vital Signs: BMI result Body Mass Index 32.6 Const General: cooperative, comfortable and no acute distress Nutritional Appearance: obese (BMI 32) Orientation/consciousness: patient oriented x3 HEENT Face and sinus: Yes normal facial exam and Yes face symmetric Teeth and gingiva: other (mallampti score of 4) Eyes Pupils: Equal, round and reactive pupils present Neck Neck: Yes other (ROM is decreasaed to the Left) Resp Effort & Inspection: normal respiratory effort and able to speak in complete sentences Neuro General: patient oriented x3 Cranial nerves: Yes CN's II-XII intact bilaterally, Yes Facial sensation intact/muscles of mastication intact, Yes Equal, round and reactive pupils present, Yes Normal accommodation reflex present, Yes Bilaterally intact EOM present, Yes Nystagmus not present, Yes Normal facial strength present, Yes Midline tongue present, Yes Ability to bilaterally rotate head present and Yes Ability to bilaterally elevate shoulders present Gait exam (Neuro): Other gait observations present (Walks with a limp to the right.) Motor exam (neuro): 5/5 motor strength present throughout and Abnormal motor strength present (L. Lower Ext unable to dorsiflex/ plantar flex due to knee pain) Deep tendon reflexes (DTR's): Right triceps reflex intensity grade: 2+, Left triceps reflex intensity grade: 2+, Rt Biceps (C5, C6): 2+, Left biceps reflex intensity grade: 2+, Right brachioradialis reflex intensity grade: 2+, Left brachioradialis reflex intensity grade: 2+, Right patellar reflex intensity grade: 2+ and Left patellar reflex intensity grade: 0 (L. Knee pain) Psych Thought process: Normal thought process present Thought content: Normal thought content present Results Reviewed Results Reviewed: L. Knee Xray 06/2025 No fractures or dislocations. There is loss of height of the medial compartment possibly related to osteoarthritis. No joint effusion. No radiopaque foreign body. IMPRESSION: 1. No acute findings. Assessment & Plan Assessment & Plan (1) Fatigue due to sleep pattern disturbance: Code(s): R53.83 - Other fatigue; G47.9 - Sleep disorder, unspecified Category: Medical (2) Excessive daytime sleepiness: Code(s): G47.19 - Other hypersomnia Category: Medical (3) CATIA (obstructive sleep apnea): Code(s): G47.33 - Obstructive sleep apnea (adult) (pediatric) Category: Medical (4) Restless leg syndrome: Code(s): G25.81 - Restless legs syndrome Category: Medical Plan Snoring will evaluate with HST Excessive Fatigue will r/o deficiencies with Labs: CBC/ CMP/ TSH / Vit D/ MMA/ Homocysteine/ B12/ Folate RLS Iron studies/ Ferritin Orders: Orders RT PSG in-lab sleep study Today G47.19 - Other hypersomnia, G47.33 - Obstructive sleep apnea (adult) (pediatric), G47.9 - Sleep disorder, unspecified, R53.83 - Other fatigue Vitamin B12 and Folate Today G47.9 - Sleep disorder, unspecified, R53.83 - Other fatigue IRON PROFILE Today G47.9 - Sleep disorder, unspecified, R53.83 - Other fatigue TSH reflex Free T4 Today G47.9 - Sleep disorder, unspecified, R53.83 - Other fatigue Homocysteine Today G47.9 - Sleep disorder, unspecified, R53.83 - Other fatigue Ferritin Today G47.33 - Obstructive sleep apnea (adult) (pediatric) Methylmalonic Acid Today G47.9 - Sleep disorder, unspecified, R53.83 - Other fatigue Patient Instructions: Sleep Hygiene set a regimented sleep schedule, no devices in bed, no tv, no ipad, no iphones. No fluids 2 hours prior to bed. You may read a book, diffuse essential oils, play soft music to help you relax. RLS, using a topical cream such as Voltaran, Bengay, capsacin, or Atkinson balm for restless leg cream can be helpful. Using a heavy weighted blanket can be helpful. Migraines f/u after monitoring symptoms via Migraine jaron arina, record onset, frequency, intensity and severity. Will refer for Botox next if not well controlled. Coding Level of Care Code New Pt Level 4 (02597) Complex EM visit Add On G2211 Diagnoses Fatigue due to sleep pattern disturbance R53.83; G47.9 Excessive daytime sleepiness G47.19 CATIA (obstructive sleep apnea) G47.33 Restless leg syndrome G25.81 Time Spent (min) 40 Sleep Questionnaire Difficulty falling asleep: No Difficulty staying asleep?: Yes Number of arousals: 3-4 Snoring: Yes Witnessed apneas: Yes Gasping arousals: Yes Nocturia: Yes (3-4) GERD: Yes Vivid dreams: Yes Acting out dreams: Yes Abnormal behavior in sleep: Yes Abnormal movements in sleep: No Morning headaches: Yes Excessive daytime sleepiness: Yes Daytime naps: No Restless legs: Yes Hallucinations: No Sleep paralysis: No Drop attacks: Yes Sleep Study: No CPAP: No
[2024-09-04 08:04] VITALS: BMI 32.6
== END 2024-09-04 09:12 | disposition home or self-care (01) ==
PROVIDERS: PCP Internal Medicine; Visit Provider Physician Assistant Medical
DX: R53.83 Other fatigue (principal); G47.9 Sleep disorder, unspecified; G47.19 Other hypersomnia; G47.33 Obstructive sleep apnea (adult) (pediatric); G25.81 Restless legs syndrome
CPT/HCPCS: 99204; G2211

== ENCOUNTER 2024-09-04 16:25 | Outpatient (REF) | payer OTHER, SELFPAY ==
[2024-09-10 15:44] LABS: Homocysteine 9.1 umol/L (<10.4)
== END 2024-09-04 16:26 | disposition home or self-care (01) ==
LOC: HO.LAB 16:25
PROVIDERS: PCP Internal Medicine; Visit Provider Physician Assistant Medical
DX: G47.9 Sleep disorder, unspecified (principal); R53.83 Other fatigue; G47.33 Obstructive sleep apnea (adult) (pediatric)
CPT/HCPCS: 36415; 82607; 82728; 82746; 83090; 83540; 83921; 84443; 99202

== ENCOUNTER → 2024-09-26 21:57 | Outpatient (BNV) | payer OTHER, SELFPAY | PROVIDERS: PCP Internal Medicine; Visit Provider Psychiatry & Neurology Neurology | DX: G47.33 Obstructive sleep apnea (adult) (pediatric) (principal) | CPT/HCPCS: 95810 ==

== ENCOUNTER → 2024-09-26 22:30 | Outpatient (REF) | payer OTHER, SELFPAY | LOC: HO.SL 22:30 | PROVIDERS: PCP Internal Medicine; Visit Provider Physician Assistant Medical | DX: G47.19 Other hypersomnia (principal); G47.33 Obstructive sleep apnea (adult) (pediatric); R53.83 Other fatigue; G47.9 Sleep disorder, unspecified | CPT/HCPCS: 95810 ==

== ENCOUNTER 2024-11-21 11:06 | Outpatient (AMB) | payer OTHER, SELFPAY ==
--- NOTE | 2024-11-21 11:12 | A.OFFVIS_ITS ---
Vital Signs 11/21/24 11:15 Height 5 ft 3 in Weight 187 lb 2.759 oz BMI 33.2 BP 98/70 Blood Pressure Location Lt brachial Position Sitting Pulse 85 Pulse Source Pulse Oximeter Pulse Oximetry (%) 96 Intake Visit Reasons: joint pain Intake Note: Patient presents today with joint pain. Rice Drier Operator Required: Yes Rice Drier Operator Name: [email or web address] [id number] Information Interpreted: non-clinical & clinical Accompanied by: Self / Same As Patient Allergies aspirin Allergy (Intermediate, Verified 11/21/24 11:17) rash latex [LATEX] Allergy (Mild, Verified 11/21/24 11:17) HIVES/RASH Penicillins Allergy (Mild, Verified 11/21/24 11:17) unknown amoxicillin Adverse Reaction (Intermediate, Verified 11/21/24 11:17) diarrhea Beef Containing Products Adverse Reaction (Intermediate, Verified 11/21/24 11:17) DIARRHEA/VOMITING sumatriptan [From Imitrex] Adverse Reaction (Verified 11/21/24 11:17) Palpitations Red Meats And Seafood Allergy (Intermediate, Uncoded 09/04/24 08:08) inflammation and swelling HPI HPI joint pain: Details: Video national insurance officer used. She is having pain from neck to toes. Chronic pain in neck is worse. Burning sensation in neck. She has had neck pain since fibromyalgia dx for 15 years. She wets towel with cold water with benefit. She does not apply hot towel to neck due to hot flashes. Cold weather aggravates her pain. Takes 2 tylenol at a time PRN. Last PT was years ago. She exercises regularly. She was told she had a problem with nerves in her neck. Takes duloxetine 30mg BID and gabapentin 400mg TID. Gabapentin provides pain relief more than tylenol. SHe has been on current dose of gabapentin for years. Hx diabetic neuropathy. [facility] Medical History Bilateral chronic knee pain Polyarthralgia Excessive daytime sleepiness Witnessed apneic spells Cough in adult Former cigarette smoker Generalized osteoarthritis of multiple sites Elevated liver transaminase level Microhematuria Candidiasis Tubular adenoma Controlled diabetes mellitus type II without complication Diarrhea Lower thoracic back pain Pancreatic insufficiency Pelvic pain Mild intermittent asthma Depression with anxiety COVID-19 vaccination declined Decreased hearing of right ear Tinnitus of right ear Arthritis Mixed stress and urge incontinence GERD (gastroesophageal reflux disease) Type 2 diabetes mellitus with microalbuminuria, with long-term current use of insulin B12 deficiency Non-toxic multinodular goiter Dyslipidemia Obesity (BMI 30-39.9) Restless leg syndrome Vertigo Fibromyalgia Anxiety Surgical History H/O thyroidectomy Hx of BSO (bilateral salpingo-oophorectomy) Hx of laparoscopy Hx of colonoscopy History of esophagogastroduodenoscopy (EGD) Hx of appendectomy Hx of cholecystectomy Hx of section Family History Father Diabetes mellitus Heart murmur Arthritis Mother Diabetes mellitus HTN (hypertension) Glaucoma Melanoma Arthritis Sister Arthritis Social History Household Members: Family Housing: House Do you presently have visiting nurse or other home services: Yes Alcohol intake: never Patient Tobacco Use Status: Former Tobacco user Tobacco use type: Cigarette Cigarettes Per Day: 0 Years Smoked: 34 e-Cigarette/Vaping Use: Never Used Advance Directives Date on File: 06/21/22 service: No Current occupational status: unemployed Sexual orientation: Straight/Heterosexual Gender identity: Female Cognitive needs: No Hearing needs: No Vision needs: No Review of Systems Const All systems reviewed & are unremarkable except as noted in HPI and below Physical Exam Vital Signs: Last Vital Signs Pulse 85 11/21/24 11:15 BP 98/70 11/21/24 11:15 Pulse Ox 96 11/21/24 11:15 BMI result Body Mass Index 33.2 Const Other: General: Comfortable CVS: RRR Respiratory: clear to auscultation bilaterally. Good respiratory effort Skin: No lesions seen MSK: Diffuse allodynia. Tender to palpate all joints in hands and interphalangeal region. No synovitis. Shoulder abduction 110 degrees bilateral with limited full internal rotation. Bilateral shoulder external rotation is normal. Tender trapezius. Multiple tender points on back. Good cervical rotation and extension. She was unable to flex cervical spine due to vertigo symptoms. Tender to palpate bilateral knees. Knee flexion 30 degrees bilateral due to pain. Assessment & Plan Assessment & Plan (1) Trapezius strain: Comment: Myofascial strain is contributing to neck pain. We discussed conservative management. Code(s): S46.819A - Strain of other muscles, fascia and tendons at shoulder and upper arm level, unspecified arm, initial encounter Category: Medical Plan: Continue to apply cold/wet towel to neck PT ordered Will avoid oral NSAIDs due to history of active gastritis on PPI Return to clinic in 3 months (2) Osteoarthritis of left knee: Comment: X-rays August 2024 reveal mild osteoarthritis of left knee. We discussed conservative management. She has had recurrent falls. Range of motion is very limited due to uncontrolled pain. She will benefit from PT with gait training. Failed Tylenol 1000 mg prn Code(s): M17.12 - Unilateral primary osteoarthritis, left knee Category: Medical Plan: Left knee hinged brace prescribed Apply diclofenac gel to affected area every 4-6 hours as needed Avoid oral NSAIDs due to history of active gastritis on PPI Continue to apply cold towel to knees as needed PT ordered If she does not find benefit with above, I will treat pain with cortisone injection at follow-up visit She is currently on gabapentin 400 mg t.i.d. for fibromyalgia management. Gabapentin is indicated to treat knee pain from osteoarthritis. We discussed increasing dose of gabapentin. She will defer changing gabapentin dose at this time. Return to clinic in 3 months Orders: Orders PT Evaluation and Treatment Today M17.12 - Unilateral primary osteoarthritis, left knee, S46.819A - Strain of other muscles, fascia and tendons at shoulder and upper arm level, unspecified arm, initial encounter Medications: New leg brace (Knee Support Brace) As directed Left knee hinged brace Dx: osteoarthritis 1 ea 0RF diclofenac sodium 1% apply to affected area every 4-6 hours PRN pain 4 grams topical QID 100 grams 5RF Coding Level of Care Code Est Pt Level 4 (41932) Complex EM visit Add On G2211 Diagnoses Trapezius strain S46.819A Osteoarthritis of left knee M17.12
[2024-11-21 11:15] VITALS: BP 98/70; PULSE 85; O2SAT 96; BMI 33.2
== END 2024-11-21 12:31 | disposition home or self-care (01) ==
LOC: HO.RHES 11:07
PROVIDERS: PCP Internal Medicine; Visit Provider Internal Medicine Rheumatology
DX: S46.819A Strain of other muscles, fascia and tendons at shoulder and upper arm level, unspecified arm, initial encounter (principal); M17.12 Unilateral primary osteoarthritis, left knee
CPT/HCPCS: 99214; G2211

== ENCOUNTER → 2024-11-21 11:06 | Outpatient (BNVA) | payer OTHER, SELFPAY | PROVIDERS: PCP Internal Medicine; Visit Provider Internal Medicine Rheumatology | DX: S16.1XXA Strain of muscle, fascia and tendon at neck level, initial encounter (principal); S46.811A Strain of other muscles, fascia and tendons at shoulder and upper arm level, right arm, initial encounter; S46.812A Strain of other muscles, fascia and tendons at shoulder and upper arm level, left arm, initial encounter; M17.12 Unilateral primary osteoarthritis, left knee | CPT/HCPCS: 99212 ==

== ENCOUNTER 2024-11-27 07:23 | Outpatient (AMB) | payer OTHER, SELFPAY ==
--- NOTE | 2024-11-27 08:01 | A.OFFVIS_ITS ---
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 annual exam Marketing Pr Intern Required: Yes Marketing Pr Intern Language: Mice Raiser Name: Rylie [id number] Information Interpreted: non-clinical & clinical Underwater Hunter: Underwater Hunter Present Allergies aspirin Allergy (Intermediate, Verified 11/27/24 08:05) rash latex [LATEX] Allergy (Mild, Verified 11/27/24 08:05) HIVES/RASH Penicillins Allergy (Mild, Verified 11/27/24 08:05) unknown amoxicillin Adverse Reaction (Intermediate, Verified 11/27/24 08:05) diarrhea Beef Containing Products Adverse Reaction (Intermediate, Verified 11/27/24 08:05) DIARRHEA/VOMITING sumatriptan [From Imitrex] Adverse Reaction (Verified 11/27/24 08:05) Palpitations [employer] Meats And Seafood Allergy (Intermediate, Uncoded 09/04/24 08:08) inflammation and swelling HPI Comments Details: She is a postmenopausal woman presenting for her annual scratcher examination. She is doing well with no scratcher concerns. Currently not sexually active. Denies any vaginal dryness or irritation. Attempting to eat a healthy diet with calcium and vitamin D and stays active with exercise. Last pap smear; 2021, negative. Last mammogram; 2023. Colonoscopy is UTD. Denies any family history of breast or colon cancer. FH ovarian cancer. [facility], [facility] Medical History Bilateral chronic knee pain Polyarthralgia Excessive daytime sleepiness Witnessed apneic spells Cough in adult Former cigarette smoker Generalized osteoarthritis of multiple sites Elevated liver transaminase level Microhematuria Candidiasis Tubular adenoma Controlled diabetes mellitus type II without complication Diarrhea Lower thoracic back pain Pancreatic insufficiency Pelvic pain Mild intermittent asthma Depression with anxiety COVID-19 vaccination declined Decreased hearing of right ear Tinnitus of right ear Arthritis Mixed stress and urge incontinence GERD (gastroesophageal reflux disease) Type 2 diabetes mellitus with microalbuminuria, with long-term current use of insulin B12 deficiency Non-toxic multinodular goiter Dyslipidemia Obesity (BMI 30-39.9) Restless leg syndrome Vertigo Fibromyalgia Anxiety Surgical History H/O thyroidectomy Hx of BSO (bilateral salpingo-oophorectomy) Hx of laparoscopy Hx of colonoscopy History of esophagogastroduodenoscopy (EGD) Hx of appendectomy Hx of cholecystectomy Hx of section Family History (Updated 11/27/24 @ 08:34 by Veronica Chavarria [facility]) Father Diabetes mellitus Heart murmur Arthritis Mother Diabetes mellitus HTN (hypertension) Glaucoma Melanoma Arthritis Sister Arthritis Family/Other Ovarian cancer Social History Household Members: Family Housing: House Do you presently have visiting nurse or other home services: Yes Alcohol intake: never Patient Tobacco Use Status: Former Tobacco user Tobacco use type: Cigarette Cigarettes Per Day: 0 Years Smoked: 34 e-Cigarette/Vaping Use: Never Used Advance Directives Date on File: 06/21/22 service: No Current occupational status: unemployed Sexual orientation: Straight/Heterosexual Gender identity: Female Cognitive needs: No Hearing needs: No Vision needs: No Female Reproductive History Menstrual Total pregnancies: 3 Full term: 2 Number of Living Children: 2 Ab spontaneous: 1 Date of last pap smear: 11/04/21 (neg pap and hpv) Date of Mammogram: 12/12/23 (Birad 1) Review of Systems Const All systems reviewed & are unremarkable except as noted in HPI and below Reports as per HPI Eyes Reports no additional complaints ENT Reports no additional complaints Card Reports no additional complaints Resp Reports no additional complaints GI Reports as per HPI and Reports no additional complaints Reports as per HPI Musc Reports no additional complaints Skin/Breast Reports as per HPI Neuro Reports no additional complaints Psych Reports no additional complaints Endo Reports no additional complaints Jacek/Lymph Reports no additional complaints Aller/Immun Reports no additional complaints Physical Exam Vital Signs: Last Vital Signs BP 100/64 11/27/24 08:03 BMI result Body Mass Index 33.1 Const General: cooperative, healthy appearing, no acute distress, well developed and alert Orientation/consciousness: patient oriented x3 HEENT Head: Yes normal to inspection Eyes General: appearance normal, both eyes and all related structures Neck Neck: Yes normal visual inspection Thyroid: Thyroid normal Chest Chest palpation & inspection: normal inspection of the chest and other (no puckering, dimpling, peau de orange, retraction, discharge, masses) Breast/axilla inspection: normal inspection of the breasts Breast/axilla palpation: normal palpation of the breasts Resp Effort & Inspection: normal respiratory effort GI Inspection: Yes normal to inspection and Yes scar Palpation (GI): Soft to palpation Rectal Exam - Female: deferred General: Yes bladder normal to palpation External Female Exam: normal external appearance and normal appearance of the urethra Speculum Exam - Vagina: normal appearance of the vagina, normal palpation, normal vaginal discharge and vagina atrophic Speculum Exam - Cervix: normal appearance of the cervix and normal palpation Bimanual exam- vagina & uterus: normal bimanual exam, normal palpation, uterine size normal, bladder normal to palpation, normal palpation and non-tender Bimanual Exam- Adnexa, other: no masses Skin General skin exam: no rashes or lesions noted Rashes: no rashes Neuro General: patient oriented x3 Cognition (Neuro): normal cognition Extrem General: Yes normal to inspection Psych Attitude: cooperative Thought process: Normal thought process present Assessment & Plan Assessment & Plan (1) Encounter for well woman exam with routine gynecological exam: Code(s): Z01.419 - Encounter for gynecological examination (general) (routine) without abnormal findings Category: Medical Plan Discussed: Current recommendations for pap smears per ASCCP guidelines. Breast awareness, periodic self breast exams and yearly mammogram. Maintain a healthy lifestyle, well balanced diet including Calcium 1,200 mg and Vitamin D 600 IU daily, and routine exercise. Contact the office with any postmenopausal bleeding. Patient verbalizes understanding and agrees to the plan of care. She was given opportunity to ask questions and all questions were answered to the best of my ability. RTO in 1 year for annual scratcher exam. This note is constructed using voice recognition software. While every effort has been made to ensure accuracy, employment director errors may have been included. Coding Level of Care Code Est Pt Prev Care 40-64y(45897) Diagnoses Encounter for well woman exam with routine gynecological exam Z01.419
[2024-11-27 08:03] VITALS: BP 100/64; BMI 33.1
== END 2024-11-27 08:52 | disposition home or self-care (01) ==
LOC: HO.HWS 07:23
PROVIDERS: PCP Internal Medicine; Visit Provider Advanced Practice Midwife
DX: Z01.419 Encounter for gynecological examination (general) (routine) without abnormal findings (principal)
CPT/HCPCS: 99396; 99459

== ENCOUNTER → 2024-11-27 07:23 | Outpatient (BNVA) | payer OTHER, SELFPAY | PROVIDERS: PCP Internal Medicine; Visit Provider Advanced Practice Midwife | DX: Z01.419 Encounter for gynecological examination (general) (routine) without abnormal findings (principal) | CPT/HCPCS: 99396; 99459 ==

== ENCOUNTER 2024-12-20 07:27 | Outpatient (REF) | payer OTHER, SELFPAY | END 2024-12-20 07:28 | disposition home or self-care (01) | LOC: HO.MAMMO 07:27 | PROVIDERS: PCP Internal Medicine; Visit Provider Internal Medicine | DX: Z12.31 Encounter for screening mammogram for malignant neoplasm of breast (principal) | CPT/HCPCS: 77063; 77067 ==

== ENCOUNTER → 2024-12-20 08:15 | Outpatient (BNV) | payer OTHER, SELFPAY | PROVIDERS: PCP Internal Medicine; Visit Provider Internal Medicine | DX: Z12.31 Encounter for screening mammogram for malignant neoplasm of breast (principal) | CPT/HCPCS: 77063; 77067 ==

== ENCOUNTER 2025-01-28 08:56 | Outpatient (AMB) | payer OTHER, SELFPAY ==
--- NOTE | 2025-01-28 09:55 | A.OFFPC_ITS ---
Vital Signs 01/28/25 09:58 Height 5 ft 3 in Weight 178 lb BMI 31.5 BP 102/70 Blood Pressure Location Rt brachial Position Sitting Respiration 16 Pulse 78 Pulse Source Pulse Oximeter Temp 98.0 F Pulse Oximetry (%) 98 Oxygen Delivery Method Room Air Intake Visit Reasons: medication follow up Intake Note: Pt is here today for her medication f/u Allergies aspirin Allergy (Intermediate, Verified 02/03/25 13:30) rash latex (LATEX) Allergy (Mild, Verified 02/03/25 13:30) HIVES/RASH Penicillins Allergy (Mild, Verified 02/03/25 13:30) unknown amoxicillin Adverse Reaction (Intermediate, Verified 02/03/25 13:30) diarrhea Beef Containing Products Adverse Reaction (Intermediate, Verified 02/03/25 13:30) DIARRHEA/VOMITING sumatriptan (From Imitrex) Adverse Reaction (Verified 02/03/25 13:30) Palpitations Red Meats And Seafood Allergy (Intermediate, Uncoded 02/03/25 13:30) inflammation and swelling Medication List - Last Reconciled 01/28/25 by Mali Nova MD [incontinence/panty liners pad As directed 4 times a day as needed] [Adult rollator walker As directed NS] albuterol sulfate 90 mcg/actuation (Ventolin HFA) 2 puffs inhalation Q6H PRN albuterol sulfate 2.5 mg (3 mL) inhalation QID PRN alcohol swabs (Alcohol Prep Pads) 1 pad topical TID blood sugar diagnostic (FreeStyle Lite Strips) test blood sugar 3 times per day blood-glucose meter (FreeStyle Lite Meter kit) As directed [body wipes As directed 6-7 per day] [cane with quad tips use as directed] cetirizine 10 mg PO DAILY PRN cholecalciferol (vitamin D3) 25 mcg PO DAILY cholestyramine-aspartame 4 gram (Cholestyramine Light) 4 grams PO BID clonazepam 1 mg PO BID PRN diaper,brief,adult,disposable As directed up to 3 per day diclofenac sodium 1% 2 grams topical QID PRN [disposable bed pad As directed] duloxetine 30 mg PO BID estradiol 0.01%(0.1mg/gram) vaginally 3 times a week; pea sized amount to urethra 3 times a week 90 days ezetimibe 10 mg PO BEDTIME ferrous sulfate 325 mg PO DAILY 90 days MDD 325 mg daily fluticasone propion-salmeterol 250-50 mcg/dose (Advair Diskus) 1 inh inhalation BID fluticasone propionate 50 mcg/actuation (Flonase Allergy Relief) 2 sprays intranasal DAILY gabapentin 400 mg PO TID 30 days ibuprofen 600 mg PO Q6H PRN insulin degludec (Tresiba FlexTouch U-100 insulin) 18 units (0.18 mL) subcut BEDTIME 90 days lancets (FreeStyle Lancets) test blood sugar 3 times per day [large pill box with am, noon, evening & night pockets As directed NS] leg brace (Knee Support Brace) As directed Left knee hinged brace Dx: osteoarthritis [id number]-dsywwau 36,000-114,000- 180,000 unit (Creon) 1 cap PO QID methylcellulose (laxative) (Citrucel) 500 mg PO DAILY mirabegron ER (Myrbetriq) 25 mg PO DAILY 90 days nortriptyline 25 mg PO BEDTIME omeprazole 20 mg PO QAM ondansetron 4 mg PO DAILY PRN pen needle, diabetic (BD Vanessa 2nd Gen Pen Needle) Use to inject insulin once a day ropinirole 0.5 mg PO BEDTIME rosuvastatin 5 mg PO DAILY [Shower chair with back As directed] topiramate 100 mg PO BID trazodone 50 mg PO BEDTIME PRN Trulicity (dulaglutide) 3 mg (0.5 mL) subcut FR@1000 NS zolpidem 10 mg PO BEDTIME PRN Tobacco use date assessed: 01/28/25 Dental Screening Dental Screen Date: 01/28/25 Did you have a dental visit in the last 12 months?: Yes Did you have a dental problem in the last 6 months where you did not have access to dental care?: No Was dental information given to patient?: Patient has dentist HPI medication follow up HPI Details 54-year-old lady with diabetes mellitus, allergic rhinitis, and dyslipidemia, here today for her follow-up. She has been compliant with taking her medications, currently on Tresiba and Trulicity, with last hemoglobin A1c in July 2024 at 5.7%. Needs refills on her fluticasone nasal spray and also requesting a refill on her lidocaine patch for recurrent posterior neck pain. She has an appointment with Neurology for follow-up on her cervicalgia tomorrow. [facility] Medical History Bilateral chronic knee pain Polyarthralgia Excessive daytime sleepiness Witnessed apneic spells Cough in adult Former cigarette smoker Generalized osteoarthritis of multiple sites Elevated liver transaminase level Microhematuria Candidiasis Tubular adenoma Controlled diabetes mellitus type II without complication Diarrhea Lower thoracic back pain Pancreatic insufficiency Pelvic pain Mild intermittent asthma Depression with anxiety COVID-19 vaccination declined Decreased hearing of right ear Tinnitus of right ear Arthritis Mixed stress and urge incontinence GERD (gastroesophageal reflux disease) Type 2 diabetes mellitus with microalbuminuria, with long-term current use of insulin B12 deficiency Non-toxic multinodular goiter Dyslipidemia Obesity (BMI 30-39.9) Restless leg syndrome Vertigo Fibromyalgia Anxiety Surgical History H/O thyroidectomy Hx of BSO (bilateral salpingo-oophorectomy) Hx of laparoscopy Hx of colonoscopy History of esophagogastroduodenoscopy (EGD) Hx of appendectomy Hx of cholecystectomy Hx of section Family History Father Diabetes mellitus Heart murmur Arthritis Mother Diabetes mellitus HTN (hypertension) Glaucoma Melanoma Arthritis Sister Arthritis Family/Other Ovarian cancer Social History Household Members: Family Housing: House Do you presently have visiting nurse or other home services: Yes Alcohol intake: never Patient Tobacco Use Status: Former Tobacco user Tobacco use type: Cigarette Cigarettes Per Day: 0 Years Smoked: 34 e-Cigarette/Vaping Use: Never Used Advance Directives Date on File: 06/21/22 service: No Current occupational status: unemployed Sexual orientation: Straight/Heterosexual Gender identity: Female Cognitive needs: No Hearing needs: No Vision needs: No Questionnaire Thrive Questionnaire Date Thrive assessed: 08/24/24 I am a: Patient What is your living situation today?: I have a steady place to live Within the past 12 months, did the food you bought not last and you didn't have the money to get more?: Never true Within the past 12 months, did you worry whether your food would run out before you got money to buy more?: Never true Do you have trouble paying for medicines?: No Do you have trouble getting transportation to medical appointments?: No Do you have trouble paying your heating and electricity bill?: No Do you have trouble taking care of your child, family member or friend?: No Do you have trouble with day-to-day activities such as bathing, preparing meals, shopping, managing finances, etc.?: Yes Are you currently unemployed and looking for a job?: Yes Are you interested in more education?: No Please select the resources that you would like help with: Transportation Currently or been in a relationship where the following occur: I choose not to answer THRIVE Score: 0 NANCY-7 AMB Questionnaire NANCY-7 Date NANCY - 7 assessed: 08/08/24 Source: Developed by Drs. Umair Drew, Amber Up, Glynn Benson and colleagues, with an educational pola from giftee. Review of Systems Const Reports as per HPI Eyes Reports no additional complaints and Denies itchy eyes ENT Reports no additional complaints and Denies throat swelling Card Reports no additional complaints Resp Reports no additional complaints GI Reports no additional complaints Reports as per HPI Musc Reports as per HPI Neuro Reports no additional complaints Psych Reports no additional complaints Endo Reports no additional complaints Jacek/Lymph Reports no additional complaints Aller/Immun Denies itchy eyes, Reports seasonal rhinorrhea and Denies throat swelling Physical exam (Primary Care) Vital Signs: Last Vital Signs Temp 98.0 F 01/28/25 09:58 Pulse 78 01/28/25 09:58 Resp 16 01/28/25 09:58 BP 102/70 01/28/25 09:58 Pulse Ox 98 01/28/25 09:58 Oxygen Delivery Method Room Air 01/28/25 09:58 BMI result Body Mass Index 31.5 Tobacco/Smoking Status: Tobacco use Status Tobacco use date assessed 01/28/25 01/28/25 10:05 Patient Tobacco Use Status Former Tobacco user 01/28/25 09:55 Tobacco use type Cigarette 01/28/25 09:55 e-Cigarette/Vaping Use Never Used 01/28/25 09:55 Thrive Assessment: Date of Thrive Assessment Date Thrive assessed 08/24/24 01/28/25 09:55 Currently or been in a relationship where the following occur: I choose not to answer Const Other: Wood Lather present General: no acute distress Nutritional Appearance: obese Orientation/consciousness: patient oriented x3 HENMT Face and sinus: Yes face symmetric Mouth: Normal oral and palatal mucosa present, oropharynx normal and moist mucous membranes Eyes General: appearance normal, both eyes and all related structures Neck Neck: Yes full ROM, Yes no lymphadenopathy and Yes supple Resp Auscultation: clear to auscultation bilaterally Cardio Rate: regular rate Rhythm: regular rhythm Heart sounds: S1 normal heart sound present and S2 normal heart sound present GI Inspection: Yes normal to inspection Palpation (GI): Soft to palpation, nontender, no guarding and no masses General: Yes no CVA tenderness Back/Spine/Pelvis Other: Tenderness on trigger points in bilateral lower back, bilateral hips, shoulder blades, posterior neck, and both knees Back: no CVA tenderness Skin General skin exam: no rashes or lesions noted Neuro General: patient oriented x3 Cognition (Neuro): normal cognition Extrem General: Yes full ROM, Yes no joint enlargement, Yes no clubbing, cyanosis or edema, Yes no pedal edema and Yes no calf tenderness Coding Level of Care Code Est Pt Level 4 (66186) Diagnoses Dyslipidemia E78.5 Controlled diabetes mellitus type II without complication E11.9 Strain of trapezius muscle, unspecified laterality, subsequent encounter S46.819D Encounter type: subsequent encounter Laterality: unspecified laterality Allergic rhinitis, unspecified seasonality, unspecified trigger J30.9 Allergic rhinitis trigger: unspecified Allergic rhinitis seasonality: unspecified Assessment & Plan Assessment & Plan (1) Dyslipidemia: Code(s): E78.5 - Hyperlipidemia, unspecified Category: Medical Plan: Fasting lipids ordered, current rosuvastatin 5 mg daily (2) Controlled diabetes mellitus type II without complication: Code(s): E11.9 - Type 2 diabetes mellitus without complications Category: Medical Plan: Ordered hemoglobin A1c and urine for microalbuminuria screening, currently on Trulicity 3 mg injected once a week and Tresiba eating units at night. Reminded to get yearly diabetes retinopathy screening (3) Trapezius strain: Comment: Myofascial strain is contributing to neck pain. We discussed conservative management. Code(s): S46.819A - Strain of other muscles, fascia and tendons at shoulder and upper arm level, unspecified arm, initial encounter Category: Medical Qualifiers: Encounter type: subsequent encounter Laterality: unspecified laterality Qualified Code(s): S46.819D - Strain of other muscles, fascia and tendons at shoulder and upper arm level, unspecified arm, subsequent encounter Plan: Prescription sent for lidocaine patch 4% to be applied to affected area no more than twice a day as needed for painful muscle spasms. She has an appointment for follow-up with Neurology in a.m. regarding her cervicalgia (4) Allergic rhinitis: Code(s): J30.9 - Allergic rhinitis, unspecified Category: Medical Qualifiers: Allergic rhinitis trigger: unspecified Allergic rhinitis seasonality: unspecified Qualified Code(s): J30.9 - Allergic rhinitis, unspecified Plan: Refilled prescription for fluticasone propionate Orders: Orders Lipid Panel 01/28/25 E11.9 - Type 2 diabetes mellitus without complications, E78.5 - Hyperlipidemia, unspecified, Z79.4 - intermission coordinator (current) use of insulin Aspartate Amino Transferase 01/28/25 E11.9 - Type 2 diabetes mellitus without complications, E78.5 - Hyperlipidemia, unspecified, Z79.4 - intermission coordinator (current) use of insulin Basic Metabolic Panel Fasting 01/28/25 E11.9 - Type 2 diabetes mellitus without complications, E78.5 - Hyperlipidemia, unspecified, Z79.4 - intermission coordinator (current) use of insulin Microalbumin, Random (w Creat) 01/28/25 E11.9 - Type 2 diabetes mellitus without complications, E78.5 - Hyperlipidemia, unspecified, Z79.4 - intermission coordinator (current) use of insulin Alanine Aminotransferase 01/28/25 E11.9 - Type 2 diabetes mellitus without complications, E78.5 - Hyperlipidemia, unspecified, Z79.4 - custodial (current) use of insulin Medications: New lidocaine 4% 1 patch topical BID PRN 60 ea 0RF pain Refilled fluticasone propionate 50 mcg/actuation (Flonase Allergy Relief) administer into each nostril 2 sprays intranasal DAILY 16 grams 3RF
[2025-01-28 09:58] VITALS: BP 102/70; PULSE 78; RESP 16; TEMP 36.7; O2SAT 98; BMI 31.5
== END 2025-01-28 10:34 | disposition home or self-care (01) ==
LOC: HO.HMCC 08:57
PROVIDERS: PCP Internal Medicine; Visit Provider Internal Medicine
DX: E78.5 Hyperlipidemia, unspecified (principal); E11.9 Type 2 diabetes mellitus without complications; S46.819D Strain of other muscles, fascia and tendons at shoulder and upper arm level, unspecified arm, subsequent encounter; J30.9 Allergic rhinitis, unspecified

== ENCOUNTER → 2025-01-28 08:56 | Outpatient (BNVA) | payer OTHER, SELFPAY | PROVIDERS: PCP Internal Medicine; Visit Provider Internal Medicine | DX: E11.9 Type 2 diabetes mellitus without complications (principal); E78.5 Hyperlipidemia, unspecified; J30.9 Allergic rhinitis, unspecified; S46.819D Strain of other muscles, fascia and tendons at shoulder and upper arm level, unspecified arm, subsequent encounter; X58.XXXD Exposure to other specified factors, subsequent encounter; Z79.4 Long term (current) use of insulin | CPT/HCPCS: 99212 ==

== ENCOUNTER 2025-01-29 10:46 | Outpatient (AMB) | payer OTHER, SELFPAY ==
--- NOTE | 2025-01-29 10:59 | A.OFFVIS_ITS ---
Vital Signs 01/29/25 11:00 Height 5 ft 3 in Weight 178 lb BMI 31.5 BP 110/80 Blood Pressure Location Lt brachial Position Sitting Pulse 94 Pulse Source Pulse Oximeter Pulse Oximetry (%) 95 Oxygen Delivery Method Room Air Intake Visit Reasons: 3mon follow-up Intake Note: Patient presents follow up CATIA. Labs/PSG in chart(AHI-18, REM AHI-40, ANTWON-63%. Trial APAP 5-20cm)Compliance in chart(79/80 days, >=4hrs-86%, Average Usage-5hrs 53min, Med pressure-18.0, Med leaks, 1.8, AHI- 4.9) Reserve Officer Required: Yes Reserve Officer Name: Nikita Accompanied by: Self / Same As Patient Allergies aspirin Allergy (Intermediate, Verified 01/29/25 11:00) rash latex (LATEX) Allergy (Mild, Verified 01/29/25 11:00) HIVES/RASH Penicillins Allergy (Mild, Verified 01/29/25 11:00) unknown amoxicillin Adverse Reaction (Intermediate, Verified 01/29/25 11:00) diarrhea Beef Containing Products Adverse Reaction (Intermediate, Verified 01/29/25 11:00) DIARRHEA/VOMITING sumatriptan (From Imitrex) Adverse Reaction (Verified 01/29/25 11:00) Palpitations Red Meats And Seafood Allergy (Intermediate, Uncoded 01/28/25 09:59) inflammation and swelling HPI Comments Details: 54 year old female is here for sleep apnea evaluation per her PCP. Sep 2024 PSG AHI c/w moderate catia AHI is 18, and REM AHI is 40/hr with oxygen desaturation to 63%. Labs reviewed with patient today, she is a former smoker. She stops breathing, and snores loudly has cheyenes stroke respirations >6min and AHI is 4.9. She goes to bed at 8pm and wakes up at 1am then at 2am and is awake for the entire day. She has difficulty staying asleep, will take ambien and trazadone, then falls asleep, since using her cpap, her sleep has improved. Her memory is poor she forgets to take medications on time, misses her appointments and needs constant reminders. She has headaches 3x a month since starting the cpap the migraines have improved with cpap use, now 1 migraine per month, and severity is still 10/10 occipital to parietal radiating to frontal with nausea vomiting, photophobia, phonophobia. Topomax 100mg PO BID helps ease the headaches and migraines. She has vertigo, sensitivity to loud noises, heat or especially when leaning forward. Her [employer] SALESPERSON comes daily for 2 hours and helps her with laundry, cooking and cleaning. She is able to complete all her ADLs, with help. She is able to shower and dress herself. RLS she takes gabapentin for numbness and tingling, and feels burning pain L>R. She has osteoarthritis in L. knee and wears a brace. Her mood is stable, and stays home when her mood is irritable due to the pain. Denies falls. [facility] Medical History Bilateral chronic knee pain Polyarthralgia Excessive daytime sleepiness Witnessed apneic spells Cough in adult Former cigarette smoker Generalized osteoarthritis of multiple sites Elevated liver transaminase level Microhematuria Candidiasis Tubular adenoma Controlled diabetes mellitus type II without complication Diarrhea Lower thoracic back pain Pancreatic insufficiency Pelvic pain Mild intermittent asthma Depression with anxiety COVID-19 vaccination declined Decreased hearing of right ear Tinnitus of right ear Arthritis Mixed stress and urge incontinence GERD (gastroesophageal reflux disease) Type 2 diabetes mellitus with microalbuminuria, with long-term current use of insulin B12 deficiency Non-toxic multinodular goiter Dyslipidemia Obesity (BMI 30-39.9) Restless leg syndrome Vertigo Fibromyalgia Anxiety Surgical History H/O thyroidectomy Hx of BSO (bilateral salpingo-oophorectomy) Hx of laparoscopy Hx of colonoscopy History of esophagogastroduodenoscopy (EGD) Hx of appendectomy Hx of cholecystectomy Hx of section Family History Father Diabetes mellitus Heart murmur Arthritis Mother Diabetes mellitus HTN (hypertension) Glaucoma Melanoma Arthritis Sister Arthritis Family/Other Ovarian cancer Social History Household Members: Family Housing: House Do you presently have visiting nurse or other home services: Yes Alcohol intake: never Patient Tobacco Use Status: Former Tobacco user Tobacco use type: Cigarette Cigarettes Per Day: 0 Years Smoked: 34 e-Cigarette/Vaping Use: Never Used Advance Directives Date on File: 06/21/22 service: No Current occupational status: unemployed Sexual orientation: Straight/Heterosexual Gender identity: Female Cognitive needs: No Hearing needs: No Vision needs: No Physical Exam Vital Signs: Last Vital Signs Pulse 94 01/29/25 11:00 BP 110/80 01/29/25 11:00 Pulse Ox 95 01/29/25 11:00 Oxygen Delivery Method Room Air 01/29/25 11:00 BMI result Body Mass Index 31.5 Const General: cooperative, comfortable and no acute distress Nutritional Appearance: obese (BMI 32) Orientation/consciousness: patient oriented x3 HEENT Face and sinus: Yes normal facial exam and Yes face symmetric Teeth and gingiva: other (mallampti score of 4) Eyes Pupils: Equal, round and reactive pupils present Neck Neck: Yes other (ROM is decreasaed to the Left) Resp Effort & Inspection: normal respiratory effort and able to speak in complete sentences Neuro General: patient oriented x3 Cranial nerves: Yes Facial sensation intact/muscles of mastication intact, Yes Equal, round and reactive pupils present, Yes Normal accommodation reflex present, Yes Normal facial strength present, Yes Midline tongue present, Yes Ability to bilaterally rotate head present and Yes Ability to bilaterally elevate shoulders present Motor exam (neuro): 5/5 motor strength present throughout and Abnormal motor strength present (L. Lower Ext unable to dorsiflex/ plantar flex due to knee pain) Psych Thought process: Normal thought process present Thought content: Normal thought content present Results Reviewed Results Reviewed: CATIA compliance report October 2024 - December 2024 >4 hours 69 days and 86% Avg use is 5hours and 53min APAP [id number], therapy press 18.0- 19.8 Leaks max 23.5 AHI 4.9/hr Cheyenes Lujan respirations for >6min Assessment & Plan Assessment & Plan (1) CATIA (obstructive sleep apnea): Code(s): G47.33 - Obstructive sleep apnea (adult) (pediatric) Category: Medical (2) Restless leg syndrome: Code(s): G25.81 - Restless legs syndrome Category: Medical (3) Migraines: Code(s): G43.909 - Migraine, unspecified, not intractable, without status migrainosus Category: Medical Qualifiers: Migraine type: migraine (< 15 days per month) with aura Status migrainosus presence: without status migrainosus Intractability: intractable Qualified Code(s): G43.119 - Migraine with aura, intractable, without status migrainosus (4) Osteoarthritis of left knee: Comment: X-rays August 2024 reveal mild osteoarthritis of left knee. We discussed conservative management. She has had recurrent falls. Range of motion is very limited due to uncontrolled pain. She will benefit from PT with gait training. Failed Tylenol 1000 mg prn Code(s): M17.12 - Unilateral primary osteoarthritis, left knee Category: Medical Qualifiers: Osteoarthritis type: primary Qualified Code(s): M17.12 - Unilateral adelina bernadette osteoarthritis, left knee (5) Cervicalgia: Comment: limited rom to the l>R, with vertigo induced on lateral rotation. Code(s): M54.2 - Cervicalgia Category: Medical (6) Alex-Lujan breathing disorder: Code(s): R06.3 - Periodic breathing Category: Medical (7) Excessive daytime sleepiness: Code(s): G47.19 - Other hypersomnia Category: Medical Plan PSG reviewed with patient AHI is 4.9 and nitesh stoke breathing for over 6 min, will send for titration. PT for Cervicalgia pain and vertigo is induced on lateral rotation Excessive Fatigue Labs reviewed b12 is low normal, start 1000mcg of b12 daily. Knee pain, L. osteoartritis, Knee brace RX sent to [facility]. Orders: Orders PT Evaluation and Treatment Today G43.909 - Migraine, unspecified, not intractable, without status migrainosus, M54.2 - Cervicalgia RT PSG in-lab sleep titration Today G47.33 - Obstructive sleep apnea (adult) (pediatric), R06.3 - Periodic breathing Medications: New mecobalamin (vitamin B12) take one tablet daily by mouth. 1,000 mcg PO DAILY 90 tabs 0RF low b12 3 months MDD 1000mcg G47.19 - Other hypersomnia Refilled leg brace (Knee Support Brace) As directed Left knee hinged brace Dx: osteoarthritis 1 ea 0RF osteoarthritis of left knee M15.9 - Polyosteoarthritis, unspecified, M17.12 - Unilateral primary osteoarthritis, left knee Patient Instructions: Sleep Hygiene provided: set a scheduled bedtime and wake time to help regulate the circadian rhythm and balance the release of pituitary hormones. Sleep in a dark room, temperatures below 68 degrees, and no devices n bed. Limit caffeinated products 6 hours prior to bed, and limit fluids 2-4 hours prior to bed. Gentle night yoga, diffusing essential oils, and playing soft music can be relaxing. Knee brace sent order to [facility] for L. knee osteoarthritis. PT order for cervicalgia in lab Titration study submitted. Migraines 1 / month usually and headaches 3/ month continue Topiramate 100mg PO BID. Fibromyalgia Duloxetine swimming, and biking is helpful. Insomnia Ambien and Trazadone. Coding Level of Care Code Est Pt Level 4 (59247) Complex EM visit Add On G2211 Diagnoses CATIA (obstructive sleep apnea) G47.33 Restless leg syndrome G25.81 Intractable migraine with aura without status migrainosus G43.119 Migraine type: migraine (< 15 days per month) with aura Status migrainosus presence: without status migrainosus Intractability: intractable Primary osteoarthritis of left knee M17.12 Osteoarthritis type: primary Cervicalgia M54.2 Alex-Lujan breathing disorder R06.3 Excessive daytime sleepiness G47.19 Time Spent (min) 35 Comment improved sleep with cpap, AHI is still 4.9 and cheyenes stroke respiration >6 min. Sleep Questionnaire Difficulty falling asleep: Yes Difficulty staying asleep?: No Snoring: Yes Witnessed apneas: Yes Gasping arousals: Yes Nocturia: Yes GERD: Yes Vivid dreams: Yes Acting out dreams: Yes Abnormal behavior in sleep: Yes (sleep talking) Abnormal movements in sleep: Yes Morning headaches: Yes Excessive daytime sleepiness: Yes Daytime naps: No Restless legs: Yes (neuropathy- emg / ncs fibromyalgia) Hallucinations: No Sleep paralysis: Yes Drop attacks: No Sleep Study: Yes CPAP: Yes
[2025-01-29 11:00] VITALS: BP 110/80; PULSE 94; O2SAT 95; BMI 31.5
== END 2025-01-29 11:49 | disposition home or self-care (01) ==
LOC: HO.HSMS 10:47
PROVIDERS: PCP Internal Medicine; Visit Provider Physician Assistant Medical
DX: G47.33 Obstructive sleep apnea (adult) (pediatric) (principal); G25.81 Restless legs syndrome; G43.119 Migraine with aura, intractable, without status migrainosus; M17.12 Unilateral primary osteoarthritis, left knee; M54.2 Cervicalgia; R06.3 Periodic breathing; G47.19 Other hypersomnia
CPT/HCPCS: 99214; G2211

== ENCOUNTER → 2025-01-29 10:46 | Outpatient (BNVA) | payer OTHER, SELFPAY | PROVIDERS: PCP Internal Medicine; Visit Provider Physician Assistant Medical | DX: G47.33 Obstructive sleep apnea (adult) (pediatric) (principal); G47.19 Other hypersomnia; G25.81 Restless legs syndrome; M54.2 Cervicalgia; G43.119 Migraine with aura, intractable, without status migrainosus; M17.12 Unilateral primary osteoarthritis, left knee | CPT/HCPCS: 99212 ==

== ENCOUNTER 2025-02-15 06:03 | Outpatient (REF) | payer OTHER, SELFPAY ==
--- OUTSIDE RECORDS SUMMARY | 2025-02-15 06:05 | XMS_ITS | Clinical Summary ---
Author Organization [facility] Address [address] [facility] [address] [place] [phone] Phone Care Team Providers Care Mold Operator Name Role Phone Mali Nova MD Primary Care Provider Allergies Active Allergy Reactions Criticality Noted Date Comments Latex 12/19/2018 Other 09/13/2019 Clorox Medications dulaglutide (TRULICITY) 0.75 mg/0.5 mL subcutaneous injection Inject 0.75 mg under the skin every 7 days. Active clonazePAM (KLONOPIN) 1 MG tablet Take 1 mg by mouth 2 (two) times a day as needed. Active cetirizine (ZYRTEC) 10 MG tablet Take 10 mg by mouth daily. Active fluticasone propionate (FLONASE) 50 mcg/actuation nasal spray 1 spray by Nasal route as needed. Active loperamide (IMODIUM) 2 mg capsule Take 2 mg by mouth 4 (four) times a day as needed. Active ezetimibe (ZETIA) 10 mg tablet Take 10 mg by mouth daily. Active albuterol 90 mcg/actuation inhaler Inhale 2 puffs into the lungs every 6 (six) hours as needed. Active ipratropium-albu terol (DUONEB) 0.5-2.5 mg/3 mL nebulizer solution Inhale 3 mL into the lungs as needed. Active cholecalciferol (VITAMIN D3) 1,000 unit tablet Take 1,000 Units by mouth daily. Active metFORMIN (GLUCOPHAGE-XR) 750 MG 24 hr tablet Take 750 mg by mouth daily with dinner. Active ondansetron (ZOFRAN) 4 MG tablet Take 4 mg by mouth every 8 (eight) hours as needed. Active docusate (COLACE) 100 mg tablet Take 100 mg by mouth 2 (two) times a day. Active rOPINIRole (REQUIP) 0.5 MG tablet Take 0.5 mg by mouth nightly at bedtime. Active raNITIdine (ZANTAC) 150 MG tablet Take 150 mg by mouth 2 (two) times a day. Active predniSONE (DELTASONE) 10 MG tablet Take 1 tablet (10 mg total) by mouth daily. 7 tablet 9 Active Additional Information Patient not taking.Reported on 03/07/2019 ibuprofen (ADVIL,MOTRIN) 800 MG tabletIndication s:Pain in both hands Take 1 tablet (800 mg total) by mouth 2 (two) times a day. 60 tablet 3 0 Active traZODone (DESYREL) 100 MG tablet TAKE 1&1/2 TABLETS BY MOUTH AT BEDTIME 30 tablet 3 0 Active gabapentin (NEURONTIN) 400 MG capsule TAKE ONE CAPSULE BY MOUTH THREE TIMES A DAY 90 capsule 3 0 Active DULoxetine (CYMBALTA) 30 MG capsule TAKE ONE CAPSULE BY MOUTH TWICE A DAY 60 capsule 3 0 Active tiZANidine (ZANAFLEX) 4 MG tablet TAKE 1&1/2 (ONE WHOLE AND ONE-HALF) TABLETS AT BEDTIME 45 tablet 1 1 Active Active Problems Problem Noted Date Diagnosed Date Fibromyalgia 12/19/2018 Pain in both hands 12/19/2018 Acute pain of both knees 12/19/2018 Social History Tobacco Use Types Packs/Day Years Used Date Smoking Tobacco: Former Smokeless Tobacco: Never Education Answer Date Recorded Are you interested in more education? Not on vamshi e 11/19/2022 Are you concerned about learning? Not on file 11/19/2022 No 11/19/2022 No 11/19/2022 Digital Access Answer Date Recorded No 12/18/2022 No 12/18/2022 Reliable internet access at home? Not on file 12/18/2022 Device with a working camera? Not on file Comments Unknown Sex and Gender Information Value Date Recorded Sex Assigned at Not on file Legal Sex Female 9:24 AM EDT Gender Identity Not on file Sexual Orientation Not on file Last Filed Vital Signs Vital Sign Reading Time Taken Comments Blood Pressure 102/66 03/26/2020 9:58 AM EDT Pulse - - Temperature - - Respiratory Rate - - Oxygen Saturation - - Inhaled Oxygen Concentration - - Weight 96.2 kg (212 lb) 03/26/2020 9:58 AM EDT Height 162.6 cm (5' 4 ) 03/26/2020 9:58 AM EDT Body Mass Index 36.39 03/26/2020 9:58 AM EDT Plan of Treatment Health Maintenance Due Date Last Done Comments LIPID PANEL 1970 DEPRESSION SCREENING 1982 SMOKING Hx and SMOKELESS TOBACCO SCREENING 10/16/1983 HEPATITIS C SCREENING 1988 HIV ONE-TIME SCREENING (18-6 5 YEARS) 1988 PAP SMEAR 10/16/1991 MAMMOGRAM 2010 COLOGUARD 10/16/2015 COLONOSCOPY 10/16/2015 COLORECTAL CANCER SCREENING 10/16/2015 FIT TEST 10/16/2015 FOBT 10/16/2015 SIGMOIDOSCOPY 10/16/2015 VIRTUAL COLONOSCOPY 10/16/2015 PNEUMOCOCCAL VACCINES (50+ years) (1 of 1 - PCV) 2020 ZOSTER VACCINES (1 of 2) 2020 CREATININE LEVEL 03/26/2021 03/26/2020, 09/13/2019 COVID-19 VACCINE (1 - 2023-2 5 season) 2024 Adult Td,Tdap Booster 03/23/2028 03/23/2018 , 09/24/2016 HEPATITIS A VACCINES Aged Out No long er eligible based on patient's age to complete this topic HIB VACCINES Aged Out No longer eligi ble based on patient's age to complete this topic MENINGOCOCCAL VACCINES (ACWY) Aged Out No longer eligible based on patient's age to complete this topic MENINGOCOCCAL VACCINES (B) Aged Out N o longer eligible based on patient's age to complete this topic Medical Devices Not on file Procedures Procedure Name Priority Date/Time Associated Diagnosis Comments COMPREHENSIVE METABOLIC PANEL Routine 03/26/2020 10:37 AM EDT Fibromyalgia Acute pain of both knees Pain in both hands from Last 3 Months or Most Recently Relevant to Health Maintenance Results * (ABNORMAL) Comprehensive metabolic panel (03/26/2020 10:37 AM EDT) SODIUM 138 133 - 146 mmol/L [facility] POTASSIUM 4.4 3.3 - 5.1 mmol/L [facility] CHLORIDE 101 96 - 108 mmol/L [facility] CO2 26 21 - 35 mmol/L [facility] BUN 9 6 - 19 mg/dL [facility] CREATININE 0.70 0.5 - 1.5 mg/dL [facility] GLUCOSE 113(H) 70 - 99 mg/dL [facility] ALBUMIN 4.7 3.9 - 4.8 g/dL [facility] TOTAL PROTEIN 7.1 6.5 - 8.0 g/dL [facility] CALCIUM 10.1 8.4 - 10.3 mg/dL [facility] ALKALINE PHOSPHATASE 156(H) 39 - 117 U/L [facility] TOTAL BILIRUBIN 0.5 0.0 - 1.2 mg/dL [facility] AST 27 0 - 37 U/L [facility] ALT 23 0 - 40 U/L [facility] GLOBULIN 2.4 1 - 4.8 g/dL [facility] EGFR 102 >59 mL/min/1.7 3m2 [facility] Comment:Estimated glomerular filtration rate calculated using the CKD-EPI equation. ANION GAP 15 10 - 20 mmol/L [facility] Blood 03/26/2020 10:3 7 AM EDT 03/26/2020 10:40 AM EDT Neno VIGIL LAB BLOOD ORDERABLES nal Result [facility] [address] [place] [address] from Last 3 Months or Most Recently Relevant to Health Maintenance Insurance [facility] MEDIC[facility] REPLACEMENT MEDICARE PART A & B [facility] ONE CARE MEDICARE REPLACEMENT MEDICARE PART A & B [facility] ONE CARE MEDICARE REPLACEMENT MEDICARE PART A & B [facility] MEDICARE REPLACEMENT MEDICARE PART A & [facility]PLACEMENT MEDICARE PART A & B [place] [facility] ONE CARE MEDICARE REPLACEMENT MEDICARE PART A & B [facility] ONE CARE MEDICARE REPLACEMENT MEDICARE PART A & B [facility] MEDICARE REPLACEMENT MEDICARE PART A & B [facility] MEDICARE REPLACEMENT Care Teams Mold Operator Relationship Specialty Start Date End Date Mali Nova MD [address] [address] PCP - General Internal Medicine 11/30/18 Additional Source Comments The information contained in this document represents components of the legal health record. It is not the complete legal health record.[facility]
[2025-02-15 07:38] LABS: Alanine Aminotransferase 43 U/L (0-31); Anion Gap 11 (12-20); Aspartate Amino Transferase 26 U/L (5-31); Blood Urea Nitrogen 11 mg/dL (9-16); Calcium 9.2 mg/dL (8.4-10.2); Carbon Dioxide 26 mmol/L (22-29); Chloride 109 mmol/L (96-108); Cholesterol 137 mg/dL (<200); Estimated Glomerular Filt Rate > 60; HDL Cholesterol 47 mg/dL (>40); Potassium 4.3 mmol/L (3.3-5.1); Sodium 142 mmol/L (135-145); Triglycerides 105 mg/dL (<150)
== END 2025-02-15 06:04 | disposition home or self-care (01) ==
LOC: HO.LAB 06:03
PROVIDERS: PCP Internal Medicine; Visit Provider Internal Medicine
DX: E11.9 Type 2 diabetes mellitus without complications (principal); E78.5 Hyperlipidemia, unspecified; Z79.4 Long term (current) use of insulin
CPT/HCPCS: 36415; 80048; 80061; 82043; 82570; 84450; 84460

== ENCOUNTER → 2025-02-24 20:30 | Outpatient (REF) | payer OTHER, SELFPAY | LOC: HO.SL 20:30 | PROVIDERS: PCP Internal Medicine; Visit Provider Physician Assistant Medical | DX: G47.33 Obstructive sleep apnea (adult) (pediatric) (principal) | CPT/HCPCS: 95811 ==

== ENCOUNTER → 2025-02-24 22:13 | Outpatient (BNV) | payer OTHER, SELFPAY | PROVIDERS: PCP Internal Medicine; Visit Provider Psychiatry & Neurology Neurology | DX: G47.33 Obstructive sleep apnea (adult) (pediatric) (principal) | CPT/HCPCS: 95811 ==

== ENCOUNTER 2025-04-02 08:33 | Outpatient (AMB) | payer OTHER, SELFPAY ==
--- NOTE | 2025-04-02 08:37 | A.OFFVIS_ITS ---
Vital Signs 04/02/25 08:44 Height 5 ft 3 in Weight 177 lb 4.026 oz BMI 31.4 BP 122/80 Blood Pressure Location Rt brachial Position Sitting Pulse 80 Pulse Source Pulse Oximeter Pulse Oximetry (%) 98 Oxygen Delivery Method Room Air Intake Visit Reasons: follow up Intake Note: Patient presents today for an OA follow up. Gas Worker Name: tona [id number] Accompanied by: Self / Same As Patient Allergies aspirin Allergy (Intermediate, Verified 04/02/25 08:46) rash latex (LATEX) Allergy (Mild, Verified 04/02/25 08:46) HIVES/RASH Penicillins Allergy (Mild, Verified 04/02/25 08:46) unknown amoxicillin Adverse Reaction (Intermediate, Verified 04/02/25 08:46) diarrhea Beef Containing Products Adverse Reaction (Intermediate, Verified 04/02/25 08:46) DIARRHEA/VOMITING sumatriptan (From Imitrex) Adverse Reaction (Verified 04/02/25 08:46) Palpitations [employer] Seafood Allergy (Intermediate, Uncoded 02/03/25 13:30) inflammation and swelling Medication List - Last Reconciled 04/02/25 by Marek Hernandez MD [incontinence/panty liners pad As directed 4 times a day as needed] [Adult rollator walker As directed NS] albuterol sulfate 90 mcg/actuation (Ventolin HFA) 2 puffs inhalation Q6H PRN albuterol sulfate 2.5 mg (3 mL) inhalation QID PRN alcohol swabs (Alcohol Prep Pads) 1 pad topical TID blood sugar diagnostic (FreeStyle Lite Strips) test blood sugar 3 times per day blood-glucose meter (FreeStyle Lite Meter kit) As directed [body wipes As directed 6-7 per day] [cane with quad tips use as directed] cetirizine 10 mg PO DAILY PRN cholecalciferol (vitamin D3) 25 mcg PO DAILY clonazepam 1 mg PO BID PRN diaper,brief,adult,disposable As directed up to 3 per day diclofenac sodium 1% 2 grams topical QID PRN [disposable bed pad As directed] duloxetine 30 mg PO BID estradiol 0.01%(0.1mg/gram) vaginally 3 times a week; pea sized amount to urethra 3 times a week 90 days ezetimibe 10 mg PO BEDTIME ferrous sulfate 325 mg PO DAILY 90 days MDD 325 mg daily fluticasone propion-salmeterol 250-50 mcg/dose (Advair Diskus) 1 inh inhalation BID fluticasone propionate 50 mcg/actuation (Flonase Allergy Relief) 2 sprays intranasal DAILY gabapentin 400 mg PO TID 30 days ibuprofen 600 mg PO Q6H PRN insulin degludec (Tresiba FlexTouch U-100 insulin) 18 units (0.18 mL) subcut BEDTIME 90 days lancets (FreeStyle Lancets) test blood sugar 3 times per day [large pill box with am, noon, evening & night pockets As directed NS] leg brace (Knee Support Brace) As directed Left knee hinged brace Dx: osteoarthritis knee lidocaine 4% 1 patch topical BID PRN [id number]-[id number]-[id number] 36,000-114,000- 180,000 unit (Creon) 1 cap PO QID mecobalamin (vitamin B12) 1,000 mcg PO DAILY 3 months MDD 1000mcg methylcellulose (laxative) (Citrucel) 500 mg PO DAILY mirabegron ER (Myrbetriq) 25 mg PO DAILY 90 days nortriptyline 25 mg PO BEDTIME omeprazole 20 mg PO QAM ondansetron 4 mg PO DAILY PRN pen needle, diabetic (BD Vanessa 2nd Gen Pen Needle) Use to inject insulin once a day ropinirole 0.5 mg PO BEDTIME rosuvastatin 5 mg PO DAILY [Shower chair with back As directed] topiramate 100 mg PO BID trazodone 50 mg PO BEDTIME PRN Trulicity (dulaglutide) 3 mg (0.5 mL) subcut FR@1000 NS zolpidem 10 mg PO BEDTIME PRN HPI HPI follow up: Details: Indonesian-speaking patient. 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 Applying diclofenac gel to neck and knees has helped. She did not get a calll to schedule PT. she did not obtain a knee brace. She is having pain all over. She is unable to feel her feet. She has fallen twice in the last month. She has neuropathy and fibromyalgia. [facility] Medical History Bilateral chronic knee pain Polyarthralgia Excessive daytime sleepiness Witnessed apneic spells Cough in adult Former cigarette smoker Generalized osteoarthritis of multiple sites Elevated liver transaminase level Microhematuria Candidiasis Tubular adenoma Controlled diabetes mellitus type II without complication Diarrhea Lower thoracic back pain Pancreatic insufficiency Pelvic pain Mild intermittent asthma Depression with anxiety COVID-19 vaccination declined Decreased hearing of right ear Tinnitus of right ear Arthritis Mixed stress and urge incontinence GERD (gastroesophageal reflux disease) Type 2 diabetes mellitus with microalbuminuria, with long-term current use of insulin B12 deficiency Non-toxic multinodular goiter Dyslipidemia Obesity (BMI 30-39.9) Restless leg syndrome Vertigo Fibromyalgia Anxiety Surgical History H/O thyroidectomy Hx of BSO (bilateral salpingo-oophorectomy) Hx of laparoscopy Hx of colonoscopy History of esophagogastroduodenoscopy (EGD) Hx of appendectomy Hx of cholecystectomy Hx of section Family History Father Diabetes mellitus Heart murmur Arthritis Mother Diabetes mellitus HTN (hypertension) Glaucoma Melanoma Arthritis Sister Arthritis Family/Other Ovarian cancer Social History Household Members: Family Housing: House Do you presently have visiting nurse or other home services: Yes Alcohol intake: never Patient Tobacco Use Status: Former Tobacco user Tobacco use type: Cigarette Cigarettes Per Day: 0 Years Smoked: 34 e-Cigarette/Vaping Use: Never Used Advance Directives Date on File: 06/21/22 service: No Current occupational status: unemployed Sexual orientation: Straight/Heterosexual Gender identity: Female Cognitive needs: No Hearing needs: No Vision needs: No Physical Exam Vital Signs: Last Vital Signs Pulse 80 04/02/25 08:44 BP 122/80 04/02/25 08:44 Pulse Ox 98 04/02/25 08:44 Oxygen Delivery Method Room Air 04/02/25 08:44 BMI result Body Mass Index 31.4 Const Other: General: Comfortable CVS: RRR Respiratory: clear to auscultation bilaterally. Good respiratory effort Skin: No lesions seen MSK: Diffuse allodynia. Tender to palpate all joints in hands and interphalangeal region. No synovitis. Shoulder abduction 120 degrees bilateral with limited external rotation. Full internal rotation. Tender trapezius. Multiple tender points on back. Tender to palpate bilateral knees. Knee flexion 30 degrees bilateral due to pain. Assessment & Plan Assessment & Plan (1) Trapezius strain: Comment: Myofascial strain is contributing to neck pain. Improvement with diclofenac gel. We discussed conservative management. Code(s): S46.819A - Strain of other muscles, fascia and tendons at shoulder and upper arm level, unspecified arm, initial encounter Category: Medical Qualifiers: Encounter type: subsequent encounter Laterality: unspecified laterality Qualified Code(s): S46.819D - Strain of other muscles, fascia and tendons at shoulder and upper arm level, unspecified arm, subsequent encounter Plan: PT ordered x2 Continue diclofenac gel 1% applied to affected area as needed Will avoid oral NSAIDs due to history of active gastritis on PPI Return to clinic in 3 months (2) Osteoarthritis of left knee: Comment: Improvement with diclofenac gel. Range of motion is very limited due to uncontrolled pain. Pain from fibromyalgia is contributing to limited function. X-rays August 2024 reveal mild osteoarthritis of left knee. She has had recurrent falls. She will benefit from PT with gait training. Failed Tylenol 1000 mg prn Code(s): M17.12 - Unilateral primary osteoarthritis, left knee Category: Medical Qualifiers: Osteoarthritis type: primary Qualified Code(s): M17.12 - Unilateral primary osteoarthritis, left knee Plan: Left knee hinged brace prescribed again Continue to Apply diclofenac gel to affected area every 4-6 hours as needed Avoid oral NSAIDs due to history of active gastritis on PPI Continue to apply cold towel to knees as needed PT ordered x2 If she does not find benefit with above, I will treat pain with cortisone injection at follow-up visit Increase gabapentin 600 mg t.i.d. labs from January 2025 normal creatinine. Follow up with PCP for fibromyalgia management. Information on fibromyalgia given to patient. Consider up titration of gabapentin as she tolerates it for better control of fibromyalgia. Gabapentin is also indicated for treatment of chronic knee pain from osteoarthritis. Return to clinic in 3 months Medications: New gabapentin 600 mg PO TID 270 tabs 1RF 90 days Changed 2 From leg brace (Knee Support Brace) As directed Left knee hinged brace Dx: osteoarthritis 1 ea 0RF osteoarthritis of left knee M15.9 - Polyosteoarthritis, unspecified, M17.12 - Unilateral primary osteoarthritis, left knee To leg brace (Knee Support Brace) As directed Left knee hinged brace Dx: osteoarthritis knee 1 ea 0RF osteoarthritis of left knee M15.9 - Polyosteoarthritis, unspecified, M17.12 - Unilateral primary osteoarthritis, left knee From diclofenac sodium 1% apply to single elbow, wrist or hand; for hand includes palm/fingers/back of hand 2 grams topical QID PRN 100 grams 2RF Joint pain To diclofenac sodium 1% apply to affected area every 4-6 hours PRN. Indonesian label. 4 grams topical QID PRN 100 grams 5RF Joint pain Discontinued gabapentin Discontinued Reason: Doctor's Order 400 mg PO TID 30 days 90 caps 0RF M79.7 - Fibromyalgia Coding Level of Care Code Est Pt Level 4 (86173) Complex EM visit Add On G2211 Diagnoses Strain of trapezius muscle, unspecified laterality, subsequent encounter S46.819D Encounter type: subsequent encounter Laterality: unspecified laterality Primary osteoarthritis of left knee M17.12 Osteoarthritis type: primary
[2025-04-02 08:44] VITALS: BP 122/80; PULSE 80; O2SAT 98; BMI 31.4
--- OUTSIDE RECORDS SUMMARY | 2025-04-02 09:36 | XMS_ITS | Clinical Summary ---
Author Organization [facility] Address [address] [address] Phone Care Team Providers Care Life Underwriter Name Role Phone Mali Nova MD Primary [...] HEPATITIS C SCREENING 1988 HIV ONE-TIME SCREENING (18-65 YEARS) 1988 PAP SMEAR 10/16/1991 MAMMOGRAM 2010 COLOGUARD 10/16/2015 COLONOSCOPY 10/16/2015 COLORECTAL CANCER SCREENING 10/16/2015 FIT TEST 10/16/2015 FOBT 10/16/2015 SIGMOIDOSCOPY 10/16/2015 VIRTUAL COLONOSCOPY 10/16/2015 PNEUMOCOCCAL VACCINES (50+ years) (1 of 1 - PCV) 2020 ZOSTER VACCINES (1 of 2) 2020 CREATININE LEVEL 03/26/2021 03/26/2020, 09/13/2019 INFLUENZA VACCINE (#1) 2025 , 03/28/2020, 03/15/2019, Additional history exists COVID-19 VACCINE ( season) 2025 Adult Td,Tdap Booster 03/23/2028 03/23/2018, 017 HEPATITIS A VACCINES Aged Out No long [...] EDT) SODIUM 138 133 - 146 mmol/L [facility] POTASSIUM 4.4 3.3 - 5.1 mmol/L [facility] CHLORIDE 101 96 - 108 mmol/L [facility] CO2 26 21 - 35 mmol/L [facility] BUN 9 6 - 19 mg/dL [facility] CREATININE 0.70 0.5 - 1.5 mg/dL [facility] GLUCOSE 113(H) 70 - 99 mg/dL [facility] ALBUMIN 4.7 3.9 - 4.8 g/dL [facility] TOTAL PROTEIN 7.1 6.5 - 8.0 g/dL [facility] CALCIUM 10.1 8.4 - 10.3 mg/dL [facility] ALKALINE PHOSPHATASE 156(H) 39 - 117 U/L [facility] TOTAL BILIRUBIN 0.5 0.0 - 1.2 mg/dL [facility] AST 27 0 - 37 U/L [facility] ALT 23 0 - 40 U/L [facility] GLOBULIN 2.4 1 - 4.8 g/dL [facility] EGFR 102 >59 mL/min/1.7 3m2 [facility] Comment:Estimated glomerular filtration rate calculated using the CKD-EPI equation. ANION GAP 15 10 - 20 mmol/L [facility] Blood 03/26/2020 10:3 7 AM EDT 03/26/2020 10:40 AM EDT Neno VIGIL LAB BLOOD ORDERABLES Fi nal Result [facility] [address] [place] [address] from Last 3 Months or Most Recently Relevant to Health Maintenance Insurance MEDICARE PART A & B [facility] [place] [id number] MEDICARE PART A & [facility] MEDICARE REPLACEMENT LEXIIRENY VIZCAINO [id number] MEDICARE PART A & B [facility] ONE CARE MEDICARE REPLACEMENT MEDICARE PART A & B [facility] ONE CARE MEDICARE REPLACEMENT MEDICARE PART A & B [facility] [place] [id number] MEDICARE PART A & [facility] MEDICARE REPLACEMENT LEXIIRENY VIZCAINO [id number] MEDICARE PART A & B [facility] ONE CARE MEDICARE REPLACEMENT MEDICARE PART A & B [facility] ONE CARE MEDICARE REPLACEMENT MEDICARE PART A & B [facility] ONE CARE MEDICARE REPLACEMENT Care Teams Life Underwriter Relationship Specialty Start Date End Date Mali Nova MD [facility] [place] [address] PCP - General Internal Medicine 11/30/18 Additional Source Comments The information contained in this document represents components of the legal health record. It is not the complete legal health record.[facility]
== END 2025-04-02 09:26 | disposition home or self-care (01) ==
LOC: HO.RHES 08:34
PROVIDERS: PCP Internal Medicine; Visit Provider Internal Medicine Rheumatology
DX: S46.819D Strain of other muscles, fascia and tendons at shoulder and upper arm level, unspecified arm, subsequent encounter (principal); M17.12 Unilateral primary osteoarthritis, left knee
CPT/HCPCS: 99214; G2211

== ENCOUNTER → 2025-04-02 08:33 | Outpatient (BNVA) | payer OTHER, SELFPAY | PROVIDERS: PCP Internal Medicine; Visit Provider Internal Medicine Rheumatology | DX: S46.811D Strain of other muscles, fascia and tendons at shoulder and upper arm level, right arm, subsequent encounter (principal); S46.812D Strain of other muscles, fascia and tendons at shoulder and upper arm level, left arm, subsequent encounter; M17.12 Unilateral primary osteoarthritis, left knee | CPT/HCPCS: 99212 ==

== ENCOUNTER 2025-06-06 07:21 | Outpatient (RCR) | payer OTHER, SELFPAY | END 2025-07-16 09:59 | disposition home or self-care (01) | LOC: HO.PTS 07:21 | PROVIDERS: Visit Provider Internal Medicine Rheumatology | DX: M17.12 Unilateral primary osteoarthritis, left knee (principal); M79.7 Fibromyalgia | CPT/HCPCS: 97110; 97140; 97162 ==

== ENCOUNTER 2025-06-14 11:46 | Outpatient (AMB) | payer OTHER, SELFPAY ==
[2025-06-14 11:56] VITALS: BP 112/74; PULSE 96; TEMP 36.9; O2SAT 95; BMI 34.5
--- NOTE | 2025-06-14 11:56 | MHC.OFFWIV ---
Intake Vital Signs 06/14/25 11:56 Height 5 ft 3 in Weight 195 lb BMI 34.5 BP 112/74 Blood Pressure Location Lt brachial Position Sitting Pulse 96 Pulse Source Pulse Oximeter Temp 98.5 F Temp Source Oral Pulse Oximetry (%) 95 Oxygen Delivery Method Room Air Intake Visit Reasons: EP swollen rash under rt eye Intake Note: Patient presents c/o bilateral under eyes are swollen, itchy, red, painful x2 days. Patient Tobacco Use Status: Former Tobacco user Allergies aspirin Allergy (Intermediate, Verified 06/14/25 11:58) rash latex (LATEX) Allergy (Mild, Verified 06/14/25 11:58) HIVES/RASH Penicillins Allergy (Mild, Verified 06/14/25 11:58) unknown amoxicillin Adverse Reaction (Intermediate, Verified 06/14/25 11:58) diarrhea Beef Containing Products Adverse Reaction (Intermediate, Verified 06/14/25 11:58) DIARRHEA/VOMITING sumatriptan (From Imitrex) Adverse Reaction (Verified 06/14/25 11:58) Palpitations Red Meats And Seafood Allergy (Intermediate, Uncoded 06/14/25 11:58) inflammation and swelling Medication List - Last Reconciled 06/14/25 by Emi Carcamo MD [incontinence/panty liners pad As directed 4 times a day as needed] [Adult rollator walker As directed NS] albuterol sulfate 90 mcg/actuation (Ventolin HFA) 2 puffs inhalation Q6H PRN albuterol sulfate 2.5 mg (3 mL) inhalation QID PRN alcohol swabs (Alcohol Prep Pads) 1 pad topical TID blood sugar diagnostic (FreeStyle Lite Strips) test blood sugar 3 times per day blood-glucose meter (FreeStyle Lite Meter kit) As directed [body wipes As directed 6-7 per day] [cane with quad tips use as directed] cetirizine 10 mg PO DAILY PRN cholecalciferol (vitamin D3) 25 mcg PO DAILY clonazepam 1 mg PO BID PRN diaper,brief,adult,disposable As directed up to 3 per day diclofenac sodium 1% 4 grams topical QID PRN [disposable bed pad As directed] duloxetine 30 mg PO BID estradiol 0.01%(0.1mg/gram) vaginally 3 times a week; pea sized amount to urethra 3 times a week 90 days ezetimibe 10 mg PO BEDTIME ferrous sulfate 325 mg PO DAILY 90 days MDD 325 mg daily fluticasone propion-salmeterol 250-50 mcg/dose (Advair Diskus) 1 inh inhalation BID fluticasone propionate 50 mcg/actuation (Flonase Allergy Relief) 2 sprays intranasal DAILY gabapentin 600 mg PO TID 90 days ibuprofen 600 mg PO Q6H PRN insulin degludec (Tresiba FlexTouch U-100 insulin) 18 units (0.18 mL) subcut BEDTIME 90 days lancets (FreeStyle Lancets) test blood sugar 3 times per day [large pill box with am, noon, evening & night pockets As directed NS] leg brace (Knee Support Brace) As directed Left knee hinged brace Dx: osteoarthritis knee lidocaine 4% 1 patch topical BID PRN fmvfzk-gvwquuml-zicdjam (pork) 36,000-114,000- 180,000 unit (Creon) 1 cap PO QID mecobalamin (vitamin B12) 1,000 mcg PO DAILY 3 months MDD 1000mcg methylcellulose (laxative) (Citrucel) 500 mg PO DAILY mirabegron ER (Myrbetriq) 25 mg PO DAILY 90 days nortriptyline 25 mg PO BEDTIME 30 days omeprazole 20 mg PO QAM ondansetron 4 mg PO DAILY PRN pen needle, diabetic (BD Vanessa 2nd Gen Pen Needle) Use to inject insulin once a day ropinirole 0.5 mg PO BEDTIME rosuvastatin 5 mg PO DAILY [Shower chair with back As directed] topiramate 100 mg PO BID trazodone 50 mg PO BEDTIME PRN Trulicity (dulaglutide) 3 mg (0.5 mL) subcut FR@1000 NS zolpidem 10 mg PO BEDTIME PRN HPI EP swollen rash under rt eye HPI Details History of Present Illness The patient is a 54 year old individual presenting with right eye complaints. Conjunctivitis and Periorbital Cellulitis: - The patient reports a two-day history of right eye symptoms. - Associated symptoms include swelling, pain in the lower part of the eye, itching, and a whitish, sticky discharge. - The patient reports using an unspecified medication for itching that did not provide relief. - The symptoms caused difficulty sleeping the previous night. no blurring of vision no photophobia Problem List - Conjunctivitis Rt eye - Periorbital cellulitis Rt Plan - The patient was diagnosed with conjunctivitis and cellulitis of the right eye. - A prescription for an oral antibiotic will be sent to the pharmacy; a different medication will be chosen due to a patient-reported allergy. Z Pack - A prescription for antibiotic eye drops will also be sent to the pharmacy. Cipro - The patient was instructed to apply two drops to the affected eye every four to six hours for one week. - The patient was advised to follow up with the primary care provider if symptoms do not improve in 2 to 3 days. Review of Systems - General: No fever no chills - Neurological: No headaches no dizziness - Ear nose throat: No sore throat no hearing difficulty no ear pain Physical Exam General: No acute distress HEENT: Right eye swollen, discomfort present, conjunctivitis noted Neck: Supple Respiratory system: Able to talk in full sentences, no audible wheeze Extremities: No new findings SENIOR STRATEGY ANALYST: Alert awake oriented x3 motor intact Skin: Normal turgor PFSH Medical History Bilateral chronic knee pain Polyarthralgia Excessive daytime sleepiness Witnessed apneic spells Cough in adult Former cigarette smoker Generalized osteoarthritis of multiple sites Elevated liver transaminase level Microhematuria Candidiasis Tubular adenoma Controlled diabetes mellitus type II without complication Diarrhea Lower thoracic back pain Pancreatic insufficiency Pelvic pain Mild intermittent asthma Depression with anxiety COVID-19 vaccination declined Decreased hearing of right ear Tinnitus of right ear Arthritis Mixed stress and urge incontinence GERD (gastroesophageal reflux disease) Type 2 diabetes mellitus with microalbuminuria, with long-term current use of insulin B12 deficiency Non-toxic multinodular goiter Dyslipidemia Obesity (BMI 30-39.9) Restless leg syndrome Vertigo Fibromyalgia Anxiety Surgical History H/O thyroidectomy Hx of BSO (bilateral salpingo-oophorectomy) Hx of laparoscopy Hx of colonoscopy History of esophagogastroduodenoscopy (EGD) Hx of appendectomy Hx of cholecystectomy Hx of section Family History Father Diabetes mellitus Heart murmur Arthritis Mother Diabetes mellitus HTN (hypertension) Glaucoma Melanoma Arthritis Sister Arthritis Family/Other Ovarian cancer Social History Household Members: Family Housing: House Do you presently have visiting nurse or other home services: Yes Alcohol intake: never Patient Tobacco Use Status: Former Tobacco user Tobacco use type: Cigarette Cigarettes Per Day: 0 Years Smoked: 34 e-Cigarette/Vaping Use: Never Used Advance Directives Date on File: 06/21/22 service: No Current occupational status: unemployed Sexual orientation: Straight/Heterosexual Gender identity: Female Cognitive needs: No Hearing needs: No Vision needs: No Physical Exam Vital Signs: Last Vital Signs Temp 98.5 F 06/14/25 11:56 Pulse 96 06/14/25 11:56 BP 112/74 06/14/25 11:56 Pulse Ox 95 06/14/25 11:56 Oxygen Delivery Method Room Air 06/14/25 11:56 BMI result Body Mass Index 34.5 Assessment & Plan Assessment & Plan (1) Periorbital cellulitis of right eye: Code(s): L03.213 - Periorbital cellulitis (2) Acute conjunctivitis of right eye: Code(s): H10.31 - Unspecified acute conjunctivitis, right eye Qualifiers: Acute conjunctivitis type: unspecified Qualified Code(s): H10.31 - Unspecified acute conjunctivitis, right eye Plan Conjunctivitis and Periorbital Cellulitis: - The patient reports a two-day history of right eye symptoms. - Associated symptoms include swelling, pain in the lower part of the eye, itching, and a whitish, sticky discharge. - The patient reports using an unspecified medication for itching that did not provide relief. - The symptoms caused difficulty sleeping the previous night. no blurring of vision no photophobia Problem List - Conjunctivitis Rt eye - Periorbital cellulitis Rt Plan - The patient was diagnosed with conjunctivitis and cellulitis of the right eye. - A prescription for an oral antibiotic will be sent to the pharmacy; a different medication will be chosen due to a patient-reported allergy. Z Pack - A prescription for antibiotic eye drops will also be sent to the pharmacy. Cipro - The patient was instructed to apply two drops to the affected eye every four to six hours for one week. - The patient was advised to follow up with the primary care provider if symptoms do not improve in 2 to 3 days. Medications: New azithromycin Take 2 tablets today then 1 daily 250 mg PO ONCE 6 tabs 0RF 5 days J06.9 - Acute upper respiratory infection, unspecified ciprofloxacin HCl 0.3% one drop in effected eye 6 hours a part for 5 days 5 mL 0RF Coding Level of Care Code Est Pt Level 3 (62163) Diagnoses Periorbital cellulitis of right eye L03.213 Acute conjunctivitis of right eye, unspecified acute conjunctivitis type H10.31 Acute conjunctivitis type: unspecified
--- OUTSIDE RECORDS SUMMARY | 2025-06-14 12:34 | XMS_ITS | Clinical Summary ---
Author Organization [facility] Address [address] [facility] [address] [place] [id number] Phone Care Team Providers Care Vocational Evaluator Name Role Phone Mali Nova MD Primary [...] 03/15/2019, Additional history exists COVID-19 VACCINE ( - 2024- season) 2025 Adult Td,Tdap Booster 03/23/2028 03/23/2018, 017 RSV VACCINE (1 - 1-dose 75+ series) 2045 HEPATITIS A VACCINES Aged Out No long [...] Date/Time Associated Diagnosis Comments COMPREHENSIVE METABOLIC PANEL (CMP) Routine 03/26/2020 10:37 AM EDT Fibromyalgia Acute pain of both knees Pain in both hands from Last 3 Months or Most Recently Relevant to Health Maintenance Results * (ABNORMAL) Comprehensive metabolic panel (03/26/2020 10:37 AM EDT) SODIUM 138 133 - 146 mmol/L [facility] POTASSIUM 4.4 3.3 - 5.1 mmol/L [facility] CHLORIDE 101 96 - 108 mmol/L [facility] CO2 26 21 - 35 mmol/L [facility] BUN 9 6 - 19 mg/dL [facility] CREATININE 0.70 0.5 - 1.5 mg/dL [facility] GLUCOSE 113(H) 70 - 99 mg/dL [facility] ALBUMIN 4.7 3.9 - 4.8 g/dL [facility] TOTAL PROTEIN 7.1 6.5 - 8.0 g/dL [facility] CALCIUM 10.1 8.4 - 10.3 mg/dL [facility] ALKALINE PHOSPHATASE 156(H) 39 - 117 U/L [facility] TOTAL BILIRUBIN 0.5 0.0 - 1.2 mg/dL [facility] AST 27 0 - 37 U/L [facility] ALT 23 0 - 40 U/L [facility] GLOBULIN 2.4 1 - 4.8 g/dL [facility] EGFR 102 >59 mL/min/1.7 3m2 [facility] Comment:Estimated glomerular filtration rate calculated using the CKD-EPI equation. ANION GAP 15 10 - 20 mmol/L [facility] Blood 03/26/2020 10:3 7 AM EDT 03/26/2020 10:40 AM EDT us Neno VIGIL LAB BLOOD BKR ORDERABLE S Final Result [facility] [address] [place] [address] from Last 3 Months or Most Recently Relevant to Health Maintenance Insurance MEDICARE PART A & B [place] [id number] [facility] MEDICARE REPLACEMENT [place] [id number] MEDICARE PART A & B [place] [facility] C[facility] MEDICARE REPLACEMENT MEDICARE PART A & B [facility] CARE MEDICARE REPLACEMENT MEDICARE PART A & B [facility] CARE MEDICARE REPLACEMENT MEDICARE PART A & [place] [id number] [facility] MEDICARE REPLACEMENT [place] [id number] MEDICARE PART A & [place] [facility] CARE MEDICARE REPLACEMENT MEDICARE PART A & B [facility] CARE MEDICARE REPLACEMENT MEDICARE PART A & B [facility] CARE MEDICARE REPLACEMENT MEDICARE PART A & B [facility]ARE MEDICARE REPLACEMENT Care Teams Vocational Evaluator Relationship Specialty Start Date End Date Mali Nova MD [facility] [place] [id number] PCP - General Internal Medicine 11/30/18 Additional Source Comments The information contained in this document represents components of the legal health record. It is not the complete legal health record.[facility]
== END 2025-06-14 12:39 | disposition home or self-care (01) ==
PROVIDERS: PCP Internal Medicine; Visit Provider Internal Medicine
DX: L03.213 Periorbital cellulitis (principal); H10.31 Unspecified acute conjunctivitis, right eye

== ENCOUNTER → 2025-06-14 11:46 | Outpatient (BNVA) | payer OTHER, SELFPAY | PROVIDERS: PCP Internal Medicine; Visit Provider Internal Medicine | DX: L03.213 Periorbital cellulitis (principal); H10.31 Unspecified acute conjunctivitis, right eye | CPT/HCPCS: 99212 ==

== ENCOUNTER 2025-07-10 07:30 | Outpatient (AMB) | payer OTHER, SELFPAY ==
--- OUTSIDE RECORDS SUMMARY | 2025-07-10 07:34 | XMS_ITS | Clinical Summary ---
Author Organization [facility] Address [address] [facility] [address] [place] [phone] Phone Care Team Providers Care Picker Operator Name Role Phone Mali Nova MD [...] EDT) SODIUM 138 133 - 146 mmol/L [facility] POTASSIUM 4.4 3.3 - 5.1 mmol/L [facility] CHLORIDE 101 96 - 108 mmol/L [facility] CO2 26 21 - 35 mmol/L [facility] BUN 9 6 - 19 mg/dL [facility] CREATININE 0.70 0.5 - 1.5 mg/dL [facility] GLUCOSE 113(H) 70 - 99 mg/dL [facility] ALBUMIN 4.7 3.9 - 4.8 g/dL [facility] TOTAL PROTEIN 7.1 6.5 - 8.0 g/dL [facility] CALCIUM 10.1 8.4 - 10.3 mg/dL [facility] ALKALINE PHOSPHATASE 156(H) 39 - 117 U/L [facility] TOTAL BILIRUBIN 0.5 0.0 - 1.2 mg/dL [facility] AST 27 0 - 37 U/L [facility] ALT 23 0 - 40 U/L [facility] GLOBULIN 2.4 1 - 4.8 g/dL [facility] EGFR 102 >59 mL/min/1.7 3m2 [facility] Comment:Estimated glomerular filtration rate calculated using the CKD-EPI equation. ANION GAP 15 10 - 20 mmol/L [facility] Blood 03/26/2020 10:3 7 AM EDT 03/26/2020 10:40 AM EDT us Neno VIGIL LAB BLOOD BKR ORDERABLE S Final Result [facility] [address] [place] [address] from Last 3 Months or Most Recently Relevant to Health Maintenance Insurance MEDICARE PART A & [facility] [place] [place] [id number] [facility] MEDICARE REPLACEMENT [place] [id number] MEDICARE PART A & B [place] [facility] CARE MEDICARE REPLACEMENT MEDICARE PART A & [facility] MEDICARE [facility]PLACEMENT MEDICARE PART A & B [facility] ONE CARE MEDICARE REPLACEMENT MEDICARE PART A & [place] [facility] [place] [place] [id number] [facility] MEDICARE REPLACEMENT [place] [id number] MEDICARE PART A & [place] [facility] CARE MEDICARE REPLACEMENT MEDICARE PART A & [facility] MEDICARE [facility]PLACEMENT MEDICARE PART A & B [facility] ONE CARE MEDICARE REPLACEMENT MEDICARE PART A & B [facility] ONE CARE MEDICARE REPLACEMENT Care Teams Picker Operator Relationship Specialty Start Date End Date Mali Nova MD [facility] [place] [id number] PCP - General Internal Medicine 11/30/18 Additional Source Comments The information contained in this document represents components of the legal health record. It is not the complete legal health record.[facility]
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
== END 2025-07-10 08:53 | disposition home or self-care (01) ==
LOC: HO.HSM 07:31
PROVIDERS: PCP Internal Medicine; Referring Provider Internal Medicine; Visit Provider Registered Nurse
DX: G43.709 Chronic migraine without aura, not intractable, without status migrainosus (principal)
CPT/HCPCS: 99214

== ENCOUNTER → 2025-07-10 07:30 | Outpatient (BNVA) | payer OTHER, SELFPAY | PROVIDERS: PCP Internal Medicine; Referring Provider Internal Medicine; Visit Provider Registered Nurse | DX: G43.709 Chronic migraine without aura, not intractable, without status migrainosus (principal); Z79.899 Other long term (current) drug therapy | CPT/HCPCS: 99212 ==

== ENCOUNTER 2025-07-16 07:34 | Outpatient (AMB) | payer OTHER, SELFPAY ==
--- OUTSIDE RECORDS SUMMARY | 2025-07-16 07:37 | XMS_ITS | Clinical Summary ---
Author Organization [facility] Address [address] [place] [id number] Phone Care Team Providers Care Environmental Communications Specialist Name Role Phone Mali Nova MD Primary [...] EDT) SODIUM 138 133 - 146 mmol/L [facility] POTASSIUM 4.4 3.3 - 5.1 mmol/L [facility] CHLORIDE 101 96 - 108 mmol/L [facility] CO2 26 21 - 35 mmol/L [facility] BUN 9 6 - 19 mg/dL [facility] CREATININE 0.70 0.5 - 1.5 mg/dL [facility] GLUCOSE 113(H) 70 - 99 mg/dL [facility] ALBUMIN 4.7 3.9 - 4.8 g/dL [facility] TOTAL PROTEIN 7.1 6.5 - 8.0 g/dL [facility] CALCIUM 10.1 8.4 - 10.3 mg/dL [facility] ALKALINE PHOSPHATASE 156(H) 39 - 117 U/L [facility] TOTAL BILIRUBIN 0.5 0.0 - 1.2 mg/dL [facility] AST 27 0 - 37 U/L [facility] ALT 23 0 - 40 U/L [facility] GLOBULIN 2.4 1 - 4.8 g/dL [facility] EGFR 102 >59 mL/min/1.7 3m2 [facility] Comment:Estimated glomerular filtration rate calculated using the CKD-EPI equation. ANION GAP 15 10 - 20 mmol/L [facility] Blood 03/26/2020 10:3 7 AM EDT 03/26/2020 10:40 AM EDT us [facility] BLOOD BKR ORDERABLE S Final Result [facility] [address] [place] [address] from Last 3 Months or Most Recently Relevant to Health Maintenance Insurance MEDICARE PART A & [place] [facility] [place] [id number] [facility] MEDICARE REPLACEMENT [place] [id number] MEDICARE PART A & B [facility] CARE MEDICARE REPLACEMENT MEDICARE PART A & B [facility] CARE MEDICARE REPLACEMENT MEDICARE PART A & B [facility] ONE CARE MEDICARE REPLACEMENT MEDICARE PART A & [place] [facility] [place] [id number] [facility] MEDICARE REPLACEMENT [place] [id number] MEDICARE PART A & B [facility] CARE MEDICARE REPLACEMENT MEDICARE PART A & B [facility] CARE MEDICARE REPLACEMENT MEDICARE PART A & B [facility] ONE CARE MEDICARE REPLACEMENT MEDICARE PART A & B [facility] ONE CARE MEDICARE REPLACEMENT Care Teams Environmental Communications Specialist Relationship Specialty Start Date End Date Mali Nova MD [facility] [place] [id number] PCP - General Internal Medicine 11/30/18 Additional Source Comments The information contained in this document represents components of the legal health record. It is not the complete legal health record.[facility]
--- NOTE | 2025-07-16 08:09 | A.OFFVIS_ITS ---
Intake Visit Reasons: 1y/PVR/UA(SET) Intake Note: Patient is present for 1Y/UA/PVR Urology Medication:VITAMIN B12,MIRABEGRON Antibiotic Allergy:PENICILLINS,AMOXICILLIN Blood Thinner:NONE Last PVR:0ML'S Todays PVR:0ML'S Elevated Work Platform Operator Required: No Elevated Work Platform Operator Services: Elevated Work Platform Operator Offered & Declined Allergies aspirin Allergy (Intermediate, Verified 07/16/25 08:32) rash latex (LATEX) Allergy (Mild, Verified 07/16/25 08:32) HIVES/RASH Penicillins Allergy (Mild, Verified 07/16/25 08:32) unknown amoxicillin Adverse Reaction (Intermediate, Verified 07/16/25 08:32) diarrhea Beef Containing Products Adverse Reaction (Intermediate, Verified 07/16/25 08:32) DIARRHEA/VOMITING sumatriptan (From Imitrex) Adverse Reaction (Verified 07/16/25 08:32) Palpitations Red Meats And Seafood Allergy (Intermediate, Uncoded 07/16/25 08:32) inflammation and swelling Medication List - Last Reconciled 07/16/25 by KYLEIGH Morin [incontinence/panty liners pad As directed 4 times a day as needed] [Adult rollator walker As directed NS] albuterol sulfate 90 mcg/actuation (Ventolin HFA) 2 puffs inhalation Q6H PRN albuterol sulfate 2.5 mg (3 mL) inhalation QID PRN alcohol swabs (Alcohol Prep Pads) 1 pad topical TID azithromycin 250 mg PO ONCE 5 days blood sugar diagnostic (FreeStyle Lite Strips) test blood sugar 3 times per day blood-glucose meter (FreeStyle Lite Meter kit) As directed [body wipes As directed 6-7 per day] [cane with quad tips use as directed] cetirizine 10 mg PO DAILY PRN cholecalciferol (vitamin D3) 25 mcg PO DAILY ciprofloxacin HCl 0.3% one drop in effected eye 6 hours a part for 5 days clonazepam 1 mg PO BID PRN diaper,brief,adult,disposable As directed up to 3 per day diclofenac sodium 1% 4 grams topical QID PRN [disposable bed pad As directed] duloxetine 30 mg PO BID estradiol 0.01%(0.1mg/gram) vaginally 3 times a week; pea sized amount to urethra 3 times a week 90 days ezetimibe 10 mg PO BEDTIME ferrous sulfate 325 mg PO DAILY 90 days MDD 325 mg daily fluticasone propion-salmeterol 250-50 mcg/dose (Advair Diskus) 1 inh inhalation BID fluticasone propionate 50 mcg/actuation (Flonase Allergy Relief) 2 sprays intranasal DAILY gabapentin 600 mg PO TID 90 days ibuprofen 600 mg PO Q6H PRN insulin degludec (Tresiba FlexTouch U-100 insulin) 18 units (0.18 mL) subcut BEDTIME 90 days lancets (FreeStyle Lancets) test blood sugar 3 times per day [large pill box with am, noon, evening & night pockets As directed NS] leg brace (Knee Support Brace) As directed Left knee hinged brace Dx: osteoarthritis knee lidocaine 4% 1 patch topical BID PRN ochifx-htfvhhky-cbepzvm (pork) 36,000-114,000- 180,000 unit (Creon) 1 cap PO QID mecobalamin (vitamin B12) 1,000 mcg PO DAILY 3 months MDD 1000mcg methylcellulose (laxative) (Citrucel) 500 mg PO DAILY mirabegron ER (Myrbetriq) 25 mg PO DAILY 90 days nortriptyline 25 mg PO BEDTIME 30 days nystatin 1 appl topical TID 30 days omeprazole 20 mg PO QAM ondansetron 4 mg PO DAILY PRN 30 days pen needle, diabetic Use to inject insulin once a day ropinirole 0.5 mg PO BEDTIME rosuvastatin 5 mg PO DAILY [Shower chair with back As directed] topiramate 100 mg PO BID 90 days trazodone 50 mg PO BEDTIME PRN Trulicity (dulaglutide) 3 mg (0.5 mL) subcut FR@1000 NS zolpidem 10 mg PO BEDTIME PRN HPI Comments Details: Demi is a 54-year-old female patient of Dr. Nova. She has a past medical history of diabetes, asthma, depression, anxiety, bilateral hearing lo ss, arthritis, GERD, dyslipidemia, obesity, restless leg syndrome, vertigo, and fibromyalgia. In discussion with the patient today she reports to be doing and feeling well. She denies having had any bothersome urological issues or concerns since her last office visit here. She reports to be happy with current voiding parameters on her 25 mg of Myrbetriq. She reports compliance with Estrace cream 3 times per week as prescribed. She currently denies any bothersome urinary issues or concerns. She denies urinary urgency, urinary frequency, incontinence, nocturia, hematuria, dysuria, foul smelling urine, changes to urinary stream, flank pain, fever, and or chills. Previous workup has included an in office cystoscopy with Dr. Castellanos 06/16 as she has a history of microscopic hematuria in the setting of nicotine dependence cystoscopy noted debris otherwise no suspicious bladder lesions were visualized. In office urinalysis results reviewed with the patient today. No microscopic hematuria no yazan PVR 0ml's. She otherwise offers no other issues or concerns at this time. A1c: 08/18 5.7% [facility] Medical History Bilateral chronic knee pain Polyarthralgia Excessive daytime sleepiness Witnessed apneic spells Cough in adult Former cigarette smoker Generalized osteoarthritis of multiple sites Elevated liver transaminase level Microhematuria Candidiasis Tubular adenoma Controlled diabetes mellitus type II without complication Diarrhea Lower thoracic back pain Pancreatic insufficiency Pelvic pain Mild intermittent asthma Depression with anxiety COVID-19 vaccination declined Decreased hearing of right ear Tinnitus of right ear Arthritis Mixed stress and urge incontinence GERD (gastroesophageal reflux disease) Type 2 diabetes mellitus with microalbuminuria, with long-term current use of insulin B12 deficiency Non-toxic multinodular goiter Dyslipidemia Obesity (BMI 30-39.9) Restless leg syndrome Vertigo Fibromyalgia Anxiety Surgical History H/O thyroidectomy Hx of BSO (bilateral salpingo-oophorectomy) Hx of laparoscopy Hx of colonoscopy History of esophagogastroduodenoscopy (EGD) Hx of appendectomy Hx of cholecystectomy Hx of section Family History Father Diabetes mellitus Heart murmur Arthritis Mother Diabetes mellitus HTN (hypertension) Glaucoma Melanoma Arthritis Sister Arthritis Family/Other Ovarian cancer Social History Household Members: Family Housing: House Do you presently have visiting nurse or other home services: Yes Alcohol intake: never Patient Tobacco Use Status: Former Tobacco user Tobacco use type: Cigarette Cigarettes Per Day: 0 Years Smoked: 34 e-Cigarette/Vaping Use: Never Used Advance Directives Date on File: 06/21/22 service: No Current occupational status: unemployed Sexual orientation: Straight/Heterosexual Gender identity: Female Cognitive needs: No Hearing needs: No Vision needs: No Review of Systems Const Reports as per HPI Eyes Reports no additional complaints ENT Reports as per HPI Card Reports as per HPI Resp Reports as per HPI GI Reports as per HPI Reports as per HPI Musc Reports as per HPI Neuro Reports as per HPI Psych Reports as per HPI Endo Reports as per HPI Physical Exam Const General: cooperative, healthy appearing, comfortable, no acute distress, well developed, alert and awake Nutritional Appearance: overweight Orientation/consciousness: patient oriented x3 Limitations: no limitations HEENT Head: Yes normal to inspection, Yes normocephalic and Yes atraumatic Ears: hearing grossly normal bilaterally Eyes General: appearance normal, both eyes and all related structures Neck Neck: Yes normal visual inspection and Yes trachea midline Chest Chest palpation & inspection: normal inspection of the chest Resp Effort & Inspection: normal respiratory effort and able to speak in complete sentences Cardio Rate: regular rate GI Inspection: Yes normal to inspection General: Yes no CVA tenderness Back/Spine/Pelvis Back: no CVA tenderness Skin General skin exam: no rashes or lesions noted Neuro General: patient oriented x3 Extrem General: Yes normal to inspection Psych Appearance: grossly normal and well kempt Mental Status: mental status grossly normal Speech and movement: Normal speech and movement present and Clear speech present Affect: Sad affect present Attitude: cooperative Thought process: Normal thought process present Thought content: Normal thought content present Insight: Fair insight present (Psych) Judgement: Fair judgement present (Psych) Office Procedures Post Void Residual Post Residual Void Post Void Residual (PVR): 0 43267-[id number] Void Residual by ultrasound Results AMB Urinalysis, Automated UA Leukoctes 0 John/uL Last Edit by SALVATORE Sung on 07/16/25 08:23 UA Nitrite Negative Last Edit by SALVATORE Sung on 07/16/25 08:23 UA Urobilinogen 0.2 mg/dL Last Edit by SALVATORE Sung on 07/16/25 08:2 3 UA Protein 0 mg/dL Last Edit by SALVATORE Sung on 07/16/25 08:23 UA pH 7.5 Last Edit by SALVATORE Sung on 07/16/25 08:23 UA Blood 0 Jian/uL Last Edit by SALVATORE Sung on 07/16/25 08:23 UA Specific [place] 1.015 Last Edit by SALVATORE Sung on 07/16/25 08: 23 UA Ketone Negative Last Edit by SALVATORE Sung on 07/16/25 08:23 UA Bilirubin 0 mg/dL Last Edit by SALVATORE Sung on 07/16/25 08:23 UA Glucose 0 mg/dL Last Edit by SALVATORE Sung on 07/16/25 08:23 Results Reviewed Results Reviewed: Laboratory Last Values Urine pH (Auto) 7.5 07/16/25 08:22 Specific [place] (Auto) 1.015 07/16/25 08:22 Urine Protein (Auto) 0 mg/dL 07/16/25 08:22 Glucose (UA)(Auto) 0 mg/dL 07/16/25 08:22 Urine Ketones (Auto) Negative 07/16/25 08:22 Urine Blood (Auto) 0 Jian/uL 07/16/25 08:22 Urine Nitrite (Auto) Negative 07/16/25 08:22 Urine Bilirubin (Auto) 0 mg/dL 07/16/25 08:22 Urine Urobilinogen (Auto) 0.2 mg/dL 07/16/25 08:22 Leukocyte Esterase (Auto) 0 John/uL 07/16/25 08:22 Assessment & Plan Assessment & Plan (1) Microhematuria: Code(s): R31.29 - Other microscopic hematuria Category: Medical (2) Mixed stress and urge incontinence: Code(s): N39.46 - Mixed incontinence Category: Medical Plan In office urinalysis results with the patient today; as noted above. PVR 0 mL. Continue Myrbetriq as discussed and prescribed. She currently denies any bothersome urinary issues or concerns. She reports be happy with current voiding parameters. We will continue with surveillance monitoring We did discussed the importance of management and diabetes for urological health as well as overall health and well-being. All questions were answered. Follow-up in 1 year with PVR; or sooner with any issues, concerns, and or questions. Orders: Orders AMB Urinalysis Automated Today Z13.9 - Encounter for screening, unspecified Medications: New nystatin apply to affected area. 1 appl topical TID 30 grams 2RF 30 days Refilled mirabegron ER (Myrbetriq) 25 mg PO DAILY 90 tabs 3RF 90 days N30.10 - Interstitial cystitis (chronic) without hematuria, N32.81 - Overactive bladder, R35.1 - Nocturia, R39.15 - Urgency of urination Patient Instructions: The patient had an opportunity to ask questions regarding the treatment plan. All questions were answered. Physical exam, labs, and imaging were discussed and reviewed in detail. As well as risks, benefits, and discussion of treatment choices. No major barriers to understanding were identified. The patient ex pressed understanding and agreement with the above treatment plan. The patient was made aware they should contact our office by phone for worsening of their current condition, the appearance of new symptoms, or with any questions or concerns. Compliance is encouraged with any medications and follow up testing that is ordered. It is a privilege to be allowed the opportunity to participate in? your urological care.? Again, if you have any questions or concerns If you have any questions or concerns please do not hesitate to contact me. The office is [phone]. This note is constructed using voice recognition software. While every effort has been made to ensure accuracy restorative art embalmer errors may have been included. Yours sincerely, KYLEIGH Morin Coding Level of Care Code Est Pt Level 3 (84211) Add On Problem Visit Only Diagnoses Microhematuria R31.29 Mixed stress and urge incontinence N39.46 CPT Codes Post Residual Void - PVR CPT Code: 09746-Shfi Void Residual by ultrasound ([id number])
== END 2025-07-16 08:55 | disposition home or self-care (01) ==
LOC: HO.HUSH 07:35
PROVIDERS: PCP Internal Medicine; Visit Provider Nurse Practitioner Family
DX: R31.29 Other microscopic hematuria (principal); N39.46 Mixed incontinence; Z13.9 Encounter for screening, unspecified
CPT/HCPCS: 99213; G2211

== ENCOUNTER → 2025-07-16 07:34 | Outpatient (BNVA) | payer OTHER, SELFPAY | PROVIDERS: PCP Internal Medicine; Visit Provider Nurse Practitioner Family | DX: N39.46 Mixed incontinence (principal); N32.81 Overactive bladder; N30.10 Interstitial cystitis (chronic) without hematuria; R35.1 Nocturia; R31.29 Other microscopic hematuria; Z79.899 Other long term (current) drug therapy | CPT/HCPCS: 51798; 81003; 99212 ==

== ENCOUNTER 2025-07-17 12:55 | Outpatient (AMB) | payer OTHER, SELFPAY ==
--- NOTE | 2025-07-17 12:56 | A.OFFPC_ITS ---
Intake Visit Reasons: smoking cessation Allergies aspirin Allergy (Intermediate, Verified 07/26/25 01:37) rash latex (LATEX) Allergy (Mild, Verified 07/26/25 01:37) HIVES/RASH Penicillins Allergy (Mild, Verified 07/26/25 01:37) unknown amoxicillin Adverse Reaction (Intermediate, Verified 07/26/25 01:37) diarrhea Beef Containing Products Adverse Reaction (Intermediate, Verified 07/26/25 01:37) DIARRHEA/VOMITING sumatriptan (From Imitrex) Adverse Reaction (Verified 07/26/25 01:37) Palpitations Red Meats And Seafood Allergy (Intermediate, Uncoded 07/26/25 01:37) inflammation and swelling Medication List - Last Reconciled 07/17/25 by Mali Nova MD [incontinence/panty liners pad As directed 4 times a day as needed] [Adult rollator walker As directed NS] albuterol sulfate 90 mcg/actuation (Ventolin HFA) 2 puffs inhalation Q6H PRN albuterol sulfate 2.5 mg (3 mL) inhalation QID PRN alcohol swabs (Alcohol Prep Pads) 1 pad topical TID blood sugar diagnostic (FreeStyle Lite Strips) test blood sugar 3 times per day blood-glucose meter (FreeStyle Lite Meter kit) As directed [body wipes As directed 6-7 per day] [cane with quad tips use as directed] cetirizine 10 mg PO DAILY PRN cholecalciferol (vitamin D3) 25 mcg PO DAILY ciprofloxacin HCl 0.3% one drop in effected eye 6 hours a part for 5 days clonazepam 1 mg PO BID PRN diaper,brief,adult,disposable As directed up to 3 per day diclofenac sodium 1% 4 grams topical QID PRN [disposable bed pad As directed] duloxetine 30 mg PO BID estradiol 0.01%(0.1mg/gram) vaginally 3 times a week; pea sized amount to urethra 3 times a week 90 days ezetimibe 10 mg PO BEDTIME ferrous sulfate 325 mg PO DAILY 90 days MDD 325 mg daily fluticasone propion-salmeterol 250-50 mcg/dose (Advair Diskus) 1 inh inhalation BID fluticasone propionate 50 mcg/actuation (Flonase Allergy Relief) 2 sprays intranasal DAILY gabapentin 600 mg PO TID 90 days ibuprofen 600 mg PO Q6H PRN insulin degludec (Tresiba FlexTouch U-100 insulin) 18 units (0.18 mL) subcut BEDTIME 90 days lancets (FreeStyle Lancets) test blood sugar 3 times per day [large pill box with am, noon, evening & night pockets As directed NS] leg brace (Knee Support Brace) As directed Left knee hinged brace Dx: osteoarthritis knee lidocaine 4% 1 patch topical BID PRN kaqkju-ivwittzo-soonmpb (pork) 36,000-114,000- 180,000 unit (Creon) 1 cap PO QID mecobalamin (vitamin B12) 1,000 mcg PO DAILY 3 months MDD 1000mcg methylcellulose (laxative) (Citrucel) 500 mg PO DAILY mirabegron ER (Myrbetriq) 25 mg PO DAILY 90 days nortriptyline 25 mg PO BEDTIME 30 days nystatin 1 appl topical TID 30 days omeprazole 20 mg PO QAM ondansetron 4 mg PO DAILY PRN 30 days pen needle, diabetic Use to inject insulin once a day ropinirole 0.5 mg PO BEDTIME rosuvastatin 5 mg PO DAILY [Shower chair with back As directed] topiramate 100 mg PO BID 90 days trazodone 50 mg PO BEDTIME PRN Trulicity (dulaglutide) 3 mg (0.5 mL) subcut FR@1000 NS zolpidem 10 mg PO BEDTIME PRN Tobacco use date assessed: 07/17/25 Dental Screening Dental Screen Date: 01/28/25 HPI smoking cessation HPI Details 54-year-old lady with history of asthma, here today requesting help with quitting smoking. Patient states that she has started smoking again, now up to a whole pack a day. Has tried nicotine patches in the past and was able to quit using it, would like to start using it again to help her quit smoking. She also needs refills on her albuterol nebules. [facility] Medical History (Updated 07/24/25 @ 10:21 by Licha Hermosillo PA-C) Bilateral chronic knee pain Polyarthralgia Excessive daytime sleepiness Generalized osteoarthritis of multiple sites Elevated liver transaminase level Microhematuria Candidiasis Tubular adenoma Controlled diabetes mellitus type II without complication Lower thoracic back pain Pancreatic insufficiency Mild intermittent asthma Depression with anxiety COVID-19 vaccination declined Decreased hearing of right ear Tinnitus of right ear Mixed stress and urge incontinence GERD (gastroesophageal reflux disease) Type 2 diabetes mellitus with microalbuminuria, with long-term current use of insulin B12 deficiency Non-toxic multinodular goiter Dyslipidemia Obesity (BMI 30-39.9) Restless leg syndrome Vertigo Fibromyalgia Surgical History H/O thyroidectomy Hx of BSO (bilateral salpingo-oophorectomy) Hx of laparoscopy Hx of colonoscopy History of esophagogastroduodenoscopy (EGD) Hx of appendectomy Hx of cholecystectomy Hx of section Family History Father Diabetes mellitus Heart murmur Arthritis Mother Diabetes mellitus HTN (hypertension) Glaucoma Melanoma Arthritis Sister Arthritis Family/Other Ovarian cancer Social History Household Members: Family Housing: House Do you presently have visiting nurse or other home services: Yes Alcohol intake: never Patient Tobacco Use Status: Former Tobacco user Tobacco use type: Cigarette Cigarettes Per Day: 0 Years Smoked: 34 e-Cigarette/Vaping Use: Never Used Advance Directives Date on File: 06/21/22 service: No Current occupational status: unemployed Sexual orientation: Straight/Heterosexual Gender identity: Female Cognitive needs: No Hearing needs: No Vision needs: No Questionnaire Thrive Questionnaire Date Thrive assessed: 08/24/24 I am a: Patient What is your living situation today?: I have a steady place to live Within the past 12 months, did the food you bought not last and you didn't have the money to get more?: Never true Within the past 12 months, did you worry whether your food would run out before you got money to buy more?: Never true Do you have trouble paying for medicines?: No Do you have trouble getting transportation to medical appointments?: No Do you have trouble paying your heating and electricity bill?: No Do you have trouble taking care of your child, family member or friend?: No Do you have trouble with day-to-day activities such as bathing, preparing meals, shopping, managing finances, etc.?: Yes Are you currently unemployed and looking for a job?: Yes Are you interested in more education?: No Currently or been in a relationship where the following occur: I choose not to answer THRIVE Score: 0 NANCY-7 AMB Questionnaire NANCY-7 Date NANCY - 7 assessed: 08/08/24 Source: Developed by Drs. Umair Drew, Amber Up, Glynn Benson and colleagues, with an educational pola from [employer]. Review of Systems Const Reports no additional complaints Eyes Reports no additional complaints ENT Reports no additional complaints Card Reports no additional complaints Resp Reports no additional complaints GI Reports no additional complaints Musc Reports as per HPI Neuro Reports no additional complaints Endo Reports no additional complaints Jacek/Lymph Reports no additional complaints Aller/Immun Reports seasonal rhinorrhea Physical exam (Primary Care) Tobacco/Smoking Status: Tobacco use Status Tobacco use date assessed 01/28/25 07/17/25 12:59 Patient Tobacco Use Status Former Tobacco user 07/17/25 12:59 Tobacco use type Cigarette 07/17/25 12:59 e-Cigarette/Vaping Use Never Used 07/17/25 12:59 Thrive Assessment: Date of Thrive Assessment Date Thrive assessed 08/24/24 07/17/25 12:59 Currently or been in a relationship where the following occur: I choose not to answer Telehealth Telehealth Telehealth [facility] Location of provider rendering services: practice address Location of patient: address on file Patient Identification confirmed using: Name, : Yes Telehealth method: video Patient verbally consented to treatment: Yes Patient verbally consented to billing insurance company: Yes Patient informed of any privacy concerns related to visit: Yes Minutes spent on Phone/Video with Pt.: 15 Coding Level of Care Code Tele Est Pt Level 4 (23151) Diagnoses Cigarette smoker motivated to quit F17.210 Assessment & Plan Assessment & Plan (1) Cigarette smoker motivated to quit: Code(s): F17.210 - Nicotine dependence, cigarettes, uncomplicated Category: Social Hx Plan: Discussed options for smoking cessation with medications. Pt wishes to try Nicoderm patch. Pt advised to apply the nicotine patch as directed on cigarette quit day. Discussed common side effects and strongly advised not to smoke while using the patch. If developes any adverse effects please call office. Follow up in office 4weeks Medications: New nicotine Rotate sites of application on upper chest upper back and upper arms, remove patch before going to sleep 1 patch transdermal DAILY 28 ea 0RF Refilled albuterol sulfate 2.5 mg (3 mL) inhalation QID PRN 75 mL 0RF shortness of breath or wheezing
--- OUTSIDE RECORDS SUMMARY | 2025-07-17 12:57 | XMS_ITS | Clinical Summary ---
Author Organization [facility] Address [address] [place] [phone] Phone Care Team Providers Care Saddle Mechanic Name Role Phone Mali Nova MD Primary [...] EDT) SODIUM 138 133 - 146 mmol/L [facility] POTASSIUM 4.4 3.3 - 5.1 mmol/L [facility] CHLORIDE 101 96 - 108 mmol/L [facility] CO2 26 21 - 35 mmol/L [facility] BUN 9 6 - 19 mg/dL [facility] CREATININE 0.70 0.5 - 1.5 mg/dL [facility] GLUCOSE 113(H) 70 - 99 mg/dL [facility] ALBUMIN 4.7 3.9 - 4.8 g/dL [facility] TOTAL PROTEIN 7.1 6.5 - 8.0 g/dL [facility] CALCIUM 10.1 8.4 - 10.3 mg/dL [facility] ALKALINE PHOSPHATASE 156(H) 39 - 117 U/L [facility] TOTAL BILIRUBIN 0.5 0.0 - 1.2 mg/dL [facility] AST 27 0 - 37 U/L [facility] ALT 23 0 - 40 U/L [facility] GLOBULIN 2.4 1 - 4.8 g/dL [facility] EGFR 102 >59 mL/min/1.7 3m2 [facility] Comment:Estimated glomerular filtration rate calculated using the CKD-EPI equation. ANION GAP 15 10 - 20 mmol/L [facility] Blood 03/26/2020 10:3 7 AM EDT 03/26/2020 10:40 AM EDT us [facility] BLOOD BKR ORDERABLE S Final Result [facility] [address] [place] [address] from Last 3 Months or Most Recently Relevant to Health Maintenance Insurance MEDICARE PART A & B [facility] [place] [id number] [facility] MEDICARE REPLACEMENT [place] [id number] MEDICARE PART A & B [facility] MEDICARE REPLACEMENT MEDICARE PART A & B [facility] MEDICARE REPLACEMENT MEDICARE PART A & B [facility] C[facility] MEDICARE REPLACEMENT MEDICARE PART A & [place] [facility] [place] [id number] [facility] MEDICARE REPLACEMENT [place] [id number] MEDICARE PART A & B [facility] MEDICARE REPLACEMENT MEDICARE PART A & B [facility] MEDICARE REPLACEMENT MEDICARE PART A & B [facility] C[facility] MEDICARE REPLACEMENT MEDICARE PART A & B [facility] MEDICARE REPLACEMENT Care Teams Saddle Mechanic Relationship Specialty Start Date End Date Mali Nova MD [facility] [place] [address] PCP - General Internal Medicine 11/30/18 Additional Source Comments The information contained in this document represents components of the legal health record. It is not the complete legal health record.[facility]
== END 2025-07-17 13:45 | disposition home or self-care (01) ==
LOC: HO.HMCC 12:55
PROVIDERS: PCP Internal Medicine; Visit Provider Internal Medicine
DX: F17.210 Nicotine dependence, cigarettes, uncomplicated (principal)

== ENCOUNTER 2025-07-24 09:55 | Outpatient (AMB) | payer OTHER, SELFPAY ==
[2025-07-24 10:02] VITALS: BP 96/60; PULSE 112; TEMP 36.7; O2SAT 93; BMI 35.4
--- NOTE | 2025-07-24 10:02 | AM.OFFWIN_ITS ---
Intake Vital Signs 07/24/25 10:02 Height 5 ft 3 in Weight 200 lb BMI 35.4 BP 96/60 Blood Pressure Location Rt brachial Position Sitting Pulse 112 H Pulse Source Pulse Oximeter Temp 98.1 F Temp Source Oral Pulse Oximetry (%) 93 Oxygen Delivery Method Room Air Intake Visit Reasons: EP-sinus congestion, cough, sore throat, ears ache Intake Note: Patient presents c/o sinus congestion/pressure, fever, headache, cough, bilateral ear pain, chest congestion x3 days. Patient Tobacco Use Status: Former Tobacco user Allergies aspirin Allergy (Intermediate, Verified 07/24/25 10:06) rash latex (LATEX) Allergy (Mild, Verified 07/24/25 10:06) HIVES/RASH Penicillins Allergy (Mild, Verified 07/24/25 10:06) unknown amoxicillin Adverse Reaction (Intermediate, Verified 07/24/25 10:06) diarrhea Beef Containing Products Adverse Reaction (Intermediate, Verified 07/24/25 10:06) DIARRHEA/VOMITING sumatriptan (From Imitrex) Adverse Reaction (Verified 07/24/25 10:06) Palpitations [employer] Se[employer] Allergy (Intermediate, Uncoded 07/24/25 10:06) inflammation and swelling HPI HPI Comments History of Present Illness Details Patient is a 54yo F who presents with 3 days of flu like symptoms She has hx of asthma using Albuterol and nebulizer with good relief Has some SOB intermittent with coughing She had onset of cold symptoms with ST, congestion, headache and blocked ears She said sinus tenderness painful She has + cough with minimal phlegm Yesterday temp of 100. None now She tried Tylenol + body aches and fatigue Pt states decreased appetite and has loose stool. No vomiting Pt said [place] she had exposure to sick family member [facility] Medical History (Updated 07/24/25 @ 10:21 by Licha Hermosillo PA-C) Bilateral chronic knee pain Polyarthralgia Excessive daytime sleepiness Generalized osteoarthritis of multiple sites Elevated liver transaminase level Microhematuria Candidiasis Tubular adenoma Controlled diabetes mellitus type II without complication Lower thoracic back pain Pancreatic insufficiency Mild intermittent asthma Depression with anxiety COVID-19 vaccination declined Decreased hearing of right ear Tinnitus of right ear Mixed stress and urge incontinence GERD (gastroesophageal reflux disease) Type 2 diabetes mellitus with microalbuminuria, with long-term current use of insulin B12 deficiency Non-toxic multinodular goiter Dyslipidemia Obesity (BMI 30-39.9) Restless leg syndrome Vertigo Fibromyalgia Surgical History H/O thyroidectomy Hx of BSO (bilateral salpingo-oophorectomy) Hx of laparoscopy Hx of colonoscopy History of esophagogastroduodenoscopy (EGD) Hx of appendectomy Hx of cholecystectomy Hx of section Family History Father Diabetes mellitus Heart murmur Arthritis Mother Diabetes mellitus HTN (hypertension) Glaucoma Melanoma Arthritis Sister Arthritis Family/Other Ovarian cancer Social History Household Members: Family Housing: House Do you presently have visiting nurse or other home services: Yes Alcohol intake: never Patient Tobacco Use Status: Former Tobacco user Tobacco use type: Cigarette Cigarettes Per Day: 0 Years Smoked: 34 e-Cigarette/Vaping Use: Never Used Advance Directives Date on File: 06/21/22 service: No Current occupational status: unemployed Sexual orientation: Straight/Heterosexual Gender identity: Female Cognitive needs: No Hearing needs: No Vision needs: No Review of Systems Const Reports body aches, Denies chills, Reports fatigue, Reports fever(s) and Reports headache(s) Eyes Denies blurry vision ENT Denies dizziness, Reports otalgia, Reports headache(s), Reports nasal congestion, Reports sinus pain, Reports sore throat, Denies throat swelling and Denies tongue swelling Card Denies chest pain, Denies syncope and Reports dyspnea Resp Reports chest congestion, Reports cough and Reports dyspnea GI Denies abdominal pain, Reports diarrhea and Denies vomiting Neuro Denies dizziness, Denies syncope and Reports headache(s) Endo Reports fatigue Aller/Immun Denies throat swelling and Denies tongue swelling Physical Exam Exam Exam: General: Non-toxic, NAD. Speaking full sentences. Skin: Warm dry throughout Eye: EOMI HENT: Airway patent. Uvula midline. No pharyngeal erythema or edema. No HAND TIRE TRIMMER. Bilateral canals clear. L Tm erythematous with bulge. No perforation. R TM non-e rythematous, non-bulging. No TM perforation or hemotympanum noted. Respiratory: CTA bilaterally. No wheezes, rales or rhonchi. No accessory muscle use or stridor Cardiac: RRR. No murmur MSK: Full ROM extremities. Neurology: Alert. No aphasia or facial droop. Gait without abnormality Psych: Good mood and affect Vital Signs: Last Vital Signs Temp 98.1 F 07/24/25 10:02 Pulse 112 H 07/24/25 10:02 BP 96/60 07/24/25 10:02 Pulse Ox 93 07/24/25 10:02 Oxygen Delivery Method Room Air 07/24/25 10:02 BMI result Body Mass Index 35.4 Assessment & Plan Assessment & Plan (1) Upper respiratory infection: Code(s): J06.9 - Acute upper respiratory infection, unspecified Qualifiers: URI type: unspecified viral URI Qualified Code(s): J06.9 - Acute upper respiratory infection, unspecified Plan: Patient seen and evaluated. Lungs without obvious adventitious breath sounds Will be on Azithromycin for ear Flu/Covid/RSV ordered and sent Discussed ER s/s such as CP, SOB, confusion, Dizziness that warrants immediare evaluation Patient gave verbal understanding and had no additional questions or concerns at time of discharge All questions answered (2) Otitis media, left: Code(s): H66.92 - Otitis media, unspecified, left ear Qualifiers: Chronicity: acute Otitis media type: serous Recurrence: non-recurrent Qualified Code(s): H65.02 - Acute serous otitis media, left ear Plan: Pt will be tx with azithromycin for OM No OE on exam F/U with PCP Orders: Orders SARS-CoV2/FLU/RSV Today J06.9 - Acute upper respiratory infection, unspecified Medications: New azithromycin For 250 mg dose pack: take 500 mg today (day 1), then 250 mg for 4 days (days 2-5) PO 6 tabs 0RF Coding Level of Care Code Est Pt Level 3 (36987) Diagnoses Viral upper respiratory tract infection J06.9 URI type: unspecified viral URI Non-recurrent acute serous otitis media of left ear H65.02 Chronicity: acute Otitis media type: serous Recurrence: non-recurrent
--- OUTSIDE RECORDS SUMMARY | 2025-07-24 10:45 | XMS_ITS | Clinical Summary ---
Author Organization [facility] Address [address] [place] [id number] Phone Care Team Providers Care Leather Stretcher Name Role Phone Mali Nova MD Primary [...] EDT) SODIUM 138 133 - 146 mmol/L [facility] POTASSIUM 4.4 3.3 - 5.1 mmol/L [facility] CHLORIDE 101 96 - 108 mmol/L [facility] CO2 26 21 - 35 mmol/L [facility] BUN 9 6 - 19 mg/dL [facility] CREATININE 0.70 0.5 - 1.5 mg/dL [facility] GLUCOSE 113(H) 70 - 99 mg/dL [facility] ALBUMIN 4.7 3.9 - 4.8 g/dL [facility] TOTAL PROTEIN 7.1 6.5 - 8.0 g/dL [facility] CALCIUM 10.1 8.4 - 10.3 mg/dL [facility] ALKALINE PHOSPHATASE 156(H) 39 - 117 U/L [facility] TOTAL BILIRUBIN 0.5 0.0 - 1.2 mg/dL [facility] AST 27 0 - 37 U/L [facility] ALT 23 0 - 40 U/L [facility] GLOBULIN 2.4 1 - 4.8 g/dL [facility] EGFR 102 >59 mL/min/1.7 3m2 [facility] Comment:Estimated glomerular filtration rate calculated using the CKD-EPI equation. ANION GAP 15 10 - 20 mmol/L [facility] Blood 03/26/2020 10:3 7 AM EDT 03/26/2020 10:40 AM EDT us [facility] BLOOD BKR ORDERABLE S Final Result [facility] [address] [place] [address] from Last 3 Months or Most Recently Relevant to Health Maintenance Insurance MEDICARE PART A & [facility] [place] [id number] [facility] MEDICARE REPLACEMENT [place] [id number] MEDICARE PART A & [place] [facility] MEDIC[facility]PLAC[facility] MEDICARE PART A [facility] MED[facility]PLAC[facility] MEDICARE PART A & [facility] ONE CARE MEDICARE [facility]PLACEMENT MEDICARE PART A & [facility] [place] [place] [id number] [facility] MEDICARE REPLACEMENT [place] [id number] MEDICARE PART A & [place] [facility] MEDIC[facility]PLAC[facility] MEDICARE PART A & [facility] MED[facility]PLAC[facility] MED[facility]ARE PART A & [facility] ONE CARE MEDICARE REPLACEMENT MEDICARE PART A & B [facility] CARE MEDICARE REPLACEMENT Care Teams Leather Stretcher Relationship Specialty Start Date End Date Mali Nova MD [facility] [place] [address] PCP - General Internal Medicine 11/30/18 Additional Source Comments The information contained in this document represents components of the legal health record. It is not the complete legal health record.[facility]
== END 2025-07-24 10:36 | disposition home or self-care (01) ==
PROVIDERS: PCP Internal Medicine; Visit Provider Physician Assistant
DX: J06.9 Acute upper respiratory infection, unspecified (principal); H65.02 Acute serous otitis media, left ear

== ENCOUNTER 2025-07-24 09:55 | Outpatient (REF) | payer OTHER, SELFPAY ==
[2025-07-24 15:22] LABS: Resp Syncy Virus RNA Qual PCR NEGATIVE (Negative); SARS COV2 PCR INHOUSE NEGATIVE (Negative)
== END 2025-07-24 09:56 | disposition home or self-care (01) ==
LOC: HO.LNP 09:55
PROVIDERS: PCP Internal Medicine; Visit Provider Physician Assistant
DX: J06.9 Acute upper respiratory infection, unspecified (principal); H65.02 Acute serous otitis media, left ear
CPT/HCPCS: 87637; 99212